=== PATIENT | female | born 1960 | race Caucasian/White ===

== ENCOUNTER 2020-03-11 08:20 | Inpatient (IN) | payer MEDICAID ==
[~2020-03-11] VITALS: Ht 165.1 cm; Wt 57.7 kg
[2020-03-11] VITALS (7 sets, daily range): BP systolic 94–122; BP diastolic 50–83
--- NOTE | 2020-03-11 08:28 | NUR ---
ED Nurse Note: Pt was brought in by ambulance from [facility] d/t shortness of breath. Pt is AOx1, alert whenever name's being called, withdraws to pain, non-verbal. Pt's on FULL CODE. Per EMS pt was satting at 84% on RA, now placed on 15LPM via NRB satting at 95-98%. Placed on bed and gown; hooked to cardiac rehabilitation specialist. Rectal temp taken; 101F, notified ERMD. Safety measures in placed.
--- NOTE | 2020-03-11 08:34 | NUR ---
ED Nurse Note: IV established, blood w/ cultures and urine specimen, covid swabs collected, sent to labs.
[2020-03-11] MEDS ORDERED: LORATADINE10 M2 PO (08:36)
[2020-03-11] MEDS ORDERED: TRIHEXYPHENIDYL5 M2 PO (08:36)
[2020-03-11] MEDS ORDERED: ZINC SULFATE220 M1 ORAL (08:36)
[2020-03-11] MEDS ORDERED: ACETAMINOPHEN325 M1 ORAL (08:36)
[2020-03-11] MEDS ORDERED: LEVOTHYROXINE125 MCG ORAL (08:36)
[2020-03-11] MEDS ORDERED: AZELASTINE137 MCG/0. NS (08:36)
[2020-03-11] MEDS ORDERED: ALBUTEROL SULF8.5 G1 INH (08:36)
[2020-03-11] MEDS ORDERED: PRO-STAT LIQUID30 ML ORAL (08:36)
[2020-03-11] MEDS ORDERED: OLANZAPINE20 MG ORAL (08:36)
[2020-03-11] MEDS ORDERED: NEOSPORIN OINT30 GM TOPIC (08:36)
[2020-03-11] MEDS ORDERED: MULTIVITAMINS1 EAC8 ORAL (08:36)
[2020-03-11] MEDS ORDERED: VITAMIN C500 M1 ORAL (08:36)
[2020-03-11] MEDS ORDERED: Acetaminophen 650 MG SUPP RECTAL ONE (08:45)
--- NOTE | 2020-03-11 08:49 | NUR ---
ED Nurse Note: Skin assessment initiated, noted (1) pressure ulcer on upper sacral area. Tylenol suppository given.
[2020-03-11 08:52] LABS: BASOPHILS % (AUTO) 1.1 % (0.0-2.0); EOSINOPHILS % (AUTO) 0.1 % (0.0-3.0); HEMATOCRIT 41.8 % (37.0-47.0); HEMOGLOBIN 14.5 G/DL (12.0-16.0); LYMPHOCYTES % (AUTO) 14.2 % (20.0-45.0); MEAN CORPUSCULAR VOLUME 89 FL (80-99); MONOCYTES % (AUTO) 5.6 % (1.0-10.0); NEUTROPHILS % (AUTO) 79.1 % (45.0-75.0); PLATELET COUNT 305 K/UL (150-450); RED BLOOD COUNT 4.68 M/UL (4.20-5.40); RED CELL DISTRIBUTION WIDTH 11.5 % (11.6-14.8); WHITE BLOOD COUNT 12.6 K/UL (4.8-10.8)
[2020-03-11 09:15] LABS: ANION GAP 8 mmol/L (5-15); BLOOD UREA NITROGEN 18 mg/dL (7-18); CALCIUM 9.6 MG/DL (8.5-10.1); CARBON DIOXIDE 31 MMOL/L (21-32); CHLORIDE 112 MMOL/L (98-107); CREATININE 0.8 MG/DL (0.55-1.30); POTASSIUM 4.3 MMOL/L (3.5-5.1); SODIUM 151 MMOL/L (136-145)
[2020-03-11 09:15] LABS: APPEARANCE,URINE CLOUDY; BILIRUBIN, URINE NEGATIVE (NEGATIVE); GLUCOSE, URINE (UA) NEGATIVE (NEGATIVE); KETONES,URINE 1+ (NEGATIVE); LEUKOCYTE ESTERASE ,URINE 3+ (NEGATIVE); NITRITE,URINE NEGATIVE (NEGATIVE); PH,URINE 5 (4.5-8.0); PROTEIN,URINE 1+ (NEGATIVE); UROBILINOGEN,URINE NORMAL MG/DL (0.0-1.0)
--- NOTE | 2020-03-11 09:18 | Emergency Room Report ---
History of Present Illness General Chief Complaint: Dyspnea/Respdistress Source: Patient Present Illness HPI 60-year-old female presents the ED for evaluation of shortness of breath. Brought in from half-way facility this morning. Nursing staff noted that patient was hypoxic on room air. History of COPD. Placed on excision. Patient has psychiatric history and nonverbal at baseline. Unable to provide any additional history at this time. No reported chest pain. Febrile in triage. States that patient was recently tested for COVID. No other aggravating relieving factors. Denies any other associated symptoms Allergies: Coded Allergies: PENICILLINS (Verified Allergy, Unknown, 03/11/20) COVID-19 Screening Contact w/high risk pt: No Recent Travel to affected area: No Experienced COVID-19 symptoms?: Yes COVID-19 symptoms experienced: Shortness of Breath COVID-19 Testing performed FRENCH TEACHER: No Patient History Past Medical History: COPD Past Surgical History: none Pertinent Family History: none Social History: Denies: smoking, alcohol use, drug use Now: No Immunizations: UTD Reviewed Nursing Documentation: PMH: Agreed; PSxH: Agreed Nursing Documentation-PMH Hx Cardiac Problems: Yes Hx COPD: Yes Review of Systems All Other Systems: limited Physical Exam Vital Signs Date Time Temp Pulse Resp B/P (MAP) Pulse Ox O2 Delivery O2 Flow Rate FiO2 03/11/20 08:17 99.0 109 18 116/83 (94) 96 Non-Rebreather 12.0 Sp02 EP Interpretation: reviewed, normal General Appearance: GCS 15, non-toxic, other - nonverbal Head: normocephalic, atraumatic Eyes: bilateral eye normal inspection, bilateral eye PERRL ENT: hearing grossly normal, normal pharynx, no angioedema, normal voice Neck: full range of motion, supple/symm/no masses Respiratory: chest non-tender, lungs clear, normal breath sounds, speaking full sentences Cardiovascular #1: regular rate, rhythm, no edema Cardiovascular #2: 2+ carotid (R), 2+ carotid (L), 2+ radial (R), 2+ radial (L) , 2+ dorsalis pedis (R), 2+ dorsalis pedis (L) Gastrointestinal: normal bowel sounds, non tender, soft, non-distended, no guarding, no rebound Rectal: deferred Genitourinary: normal inspection, no CVA tenderness Musculoskeletal: back normal, normal range of motion, gait/station normal, non- tender Neurologic: other - see nursing skin notes Psychiatric: other - nonverbal Reflexes: 3+ bicep (R), 3+ bicep (L), 3+ tricep (R), 3+ tricep (L), 3+ knee (R) , 3+ knee (L) Skin: other - see nursing skin notes Lymphatic: no adenopathy Procedures Critical Care Time Critical Care Time i. I feel this is a highly complex case requiring extensive working including EKG/Rhythm strip, Xray/CT/US, Blood/urine lab work, repeat exams while in ED, and administration of strong opiates/narcotics for pain control, admission to hospital or close patient follow up. Total time: 30 min bedside evaluation and treatment excludes procedures (EKG). Reason for critical care: hypoxia Possible complications: hypotension, hypertension, CA, shock, arrhythmias, metabolic acidosis, end organ damage, respiratory failure. Interventions: labs, EKG, CXR, ABG, evaluation by respiratory therapist. NRB. IVfs. antibiotics. COVID swab Course: Patient presenting with low O2 sat from half-way facility. History of COPD. ABG shows no significant hypercapnia but somewhat hypoxic without acidosis. Placed on 15 L nonrebreather. O2 sats improved. Chest x- ray shows left lower lobe infiltrate. Broad-spectrum antibiotics given. Given IV fluid bolusing. COVID swab sent Consultations: nursing staff, EMS, family Performed by: Dr Castillo Tolerated well condition = serious j. because of unstable vital signs this patient had a condition that could potentially threaten life or limb. I feel this is a critical patient who required my full attention while patient was considered critical. Total Critical Care Time excluding procedures was greater than 35 minutes Medical Decision Making Diagnostic Impression: Primary Impression: COPD (chronic obstructive pulmonary disease) Qualified Codes: J44.9 - Chronic obstructive pulmonary disease, unspecified Additional Impression: Pneumonia Qualified Codes: J18.9 - Pneumonia, unspecified organism ER Course Hospital Course 60 yo F presents with fever, low O2 sat Differential diagnoses include: Pneumonia, CHF exacerbation, pneumothorax, fluid overload Clinical course Patient placed on stretcher. In isolation room. I wore full PPE. On quality assurance monitor body with hypoxia on room air. After initial history and physical, I ordered ABG. I ordered labs, IV fluids, EKG, chest x-ray, blood cultures, UA. Labs -leukocytosis noted, hemoglobin/hematocrit stable, Na 151, lactic 1.9, lactate okay ABG - no acidosis, no hypercapnia CXR - LLL infiltrate EKG - NSR no acute ischemic changes interpreted by me Patient O2 sat proved on nonrebreather. No tachypnea. No respiratory distress. Broad-spectrum antibiotics given. COVID swab sent. Given IV fluids. Case discussed with Dr. Ledesma and he agreed to the patient to his service for further care and support I feel this is a highly complex case requiring extensive working including EKG/ Rhythm strip, Xray/CT/US, Blood/urine lab work, repeat exams while in ED, and administration of strong opiates/narcotics for pain control, admission to hospital or close patient follow up. Diagnosis - pneumonia, COPD Patient admitted to telemetry in serious condition Labs Test 03/11/20 08:21 03/11/20 08:36 03/11/20 08:40 White Blood Count 12.6 K/UL (4.8-10.8) Red Blood Count 4.68 M/UL (4.20-5.40) Hemoglobin 14.5 G/DL (12.0-16.0) Hematocrit 41.8 % (37.0-47.0) Mean Corpuscular Volume 89 FL (80-99) Mean Corpuscular Hemoglobin 30.9 PG (27.0-31.0) Mean Corpuscular Hemoglobin Concent 34.6 G/DL (32.0-36.0) Red Cell Distribution Width 11.5 % (11.6-14.8) Platelet Count 305 K/UL (150-450) Mean Platelet Volume 6.4 FL (6.5-10.1) Neutrophils (%) (Auto) 79.1 % (45.0-75.0) Lymphocytes (%) (Auto) 14.2 % (20.0-45.0) Monocytes (%) (Auto) 5.6 % (1.0-10.0) Eosinophils (%) (Auto) 0.1 % (0.0-3.0) Basophils (%) (Auto) 1.1 % (0.0-2.0) Sodium Level 151 MMOL/L (136-145) Potassium Level 4.3 MMOL/L (3.5-5.1) Chloride Level 112 MMOL/L (98-107) Carbon Dioxide Level 31 MMOL/L (21-32) Anion Gap 8 mmol/L (5-15) Blood Urea Nitrogen 18 mg/dL (7-18) Creatinine 0.8 MG/DL (0.55-1.30) Estimat Glomerular Filtration Rate > 60 mL/min (>60) Glucose Level 123 MG/DL (74-106) Lactic Acid Level 1.90 mmol/L (0.4-2.0) Calcium Level 9.6 MG/DL (8.5-10.1) Total Bilirubin 0.3 MG/DL (0.2-1.0) Aspartate Amino Transf (AST/SGOT) 46 U/L (15-37) Alanine Aminotransferase (ALT/SGPT) 83 U/L (12-78) Alkaline Phosphatase 83 U/L (46-116) Pro-B-Type Natriuretic Peptide 348 pg/mL (0-125) Total Protein 7.1 G/DL (6.4-8.2) Albumin 2.4 G/DL (3.4-5.0) Globulin 4.7 g/dL Albumin/Globulin Ratio 0.5 (1.0-2.7) Arterial Blood pH 7.442 (7.350-7.450) Arterial Blood Partial Pressure CO2 43.5 mmHg (35.0-45.0) Arterial Blood Partial Pressure O2 57.1 mmHg (75.0-100.0) Arterial Blood HCO3 29.0 mmol/L (22.0-26.0) Arterial Blood Oxygen Saturation 90.2 % (95-100) Arterial Blood Base Excess 4.3 (-2-2) Keith Test Positive Urine Color Yellow Urine Appearance Cloudy Urine pH 5 (4.5-8.0) Urine Specific [place] 1.020 (1.005-1.035) Urine Protein 1+ (NEGATIVE) Urine Glucose (UA) Negative (NEGATIVE) Urine Ketones 1+ (NEGATIVE) Urine Blood 3+ (NEGATIVE) Urine Nitrite Negative (NEGATIVE) Urine Bilirubin Negative (NEGATIVE) Urine Urobilinogen Normal MG/DL (0.0-1.0) Urine Leukocyte Esterase 3+ (NEGATIVE) Urine RBC 5-10 /HPF (0 - 2) Urine WBC 5-10 /HPF (0 - 2) Urine Squamous Epithelial Cells Occasional /LPF Urine Amorphous Sediment Many /LPF (NONE) Urine Bacteria Few /HPF (NONE) EKG Diagnostic Results Rate: normal Rhythm: NSR ST Segments: no acute changes ASA given to the pt in ED: No Rhythm Strip Diag. Results EP Interpretation: yes Rhythm: NSR, no PVC's, no ectopy Chest X-Ray Diagnostic Results Chest X-Ray Diagnostic Results : Chest X-Ray Ordered: Yes # of Views/Limited/Complete: 1 View Indication: Shortness of Breath EP Interpretation: Yes Interpretation: no effusion, no pneumothorax, other - LLL infiltrate Impression: Other - pneumonia Electronically Signed by: Electronically signed by Ulises Castillo MD Last Vital Signs Date Time Temp Pulse Resp B/P (MAP) Pulse Ox O2 Delivery O2 Flow Rate FiO2 03/11/20 08:31 99.0 101 24 116/83 95 Non-Rebreather 12.0 Status: improved Disposition: ADMITTED INPATIENT Condition: Serious Referrals: NON PHYSICIAN (PCP) Ulises Castillo MD Mar 11, 2020 09:18
[2020-03-11 09:24] LABS: COLOR,URINE YELLOW
[2020-03-11 09:28] LABS: ALANINE AMINOTRANSFERASE 83 U/L (12-78); ALBUMIN 2.4 G/DL (3.4-5.0); ALBUMIN/GLOBULIN RATIO 0.5 (1.0-2.7); ALKALINE PHOSPHATASE 83 U/L (46-116); ASPARTATE AMINO TRANSFERASE 46 U/L (15-37); BILIRUBIN,TOTAL 0.3 MG/DL (0.2-1.0)
--- NOTE | 2020-03-11 09:35 | Diagnostic Imaging Report ---
EXAM: XR Chest, 1 View CLINICAL HISTORY: SOB TECHNIQUE: Frontal view of the chest. COMPARISON: No relevant prior studies available. FINDINGS: Lungs: There is mild left lower lobe infiltrate consistent with pneumonia. Pleural space: Unremarkable. No pneumothorax. Heart: The heart size is at the upper limits of normal. Mediastinum: Unremarkable. Bones/joints: Unremarkable. IMPRESSION: There is mild left lower lobe infiltrate consistent with pneumonia.
[2020-03-11] MEDS ORDERED: Cefepime HCl 1 GM in D5W 55 ML IVPB ONE (09:45)
[2020-03-11] MEDS ORDERED: Azithromycin 500 MG in NS 275 ML IV ONE (09:45)
--- NOTE | 2020-03-11 11:00 | NUR ---
ED Nurse Note: latest temp: 98F oral.
--- NOTE | 2020-03-11 17:05 | NUR ---
ED Nurse Note: report given to SHARATH Saucedo in telemetry unit for continuity of care.
--- NOTE | 2020-03-11 17:30 | NUR ---
TRANSFER TO TELEMETRY: Patient transferred to Telemetry Unit as ordered, per Dr. Ledesma. Report given to SHARATH Saucedo. Belongings and medications given to receiving nurse. Family and or S/O informed of transfer.
--- NOTE | 2020-03-11 18:16 | NUR ---
NURSE NOTES: Received patient from SHARATH Wei from the Emergency Department. Patient is aphasic, oxygen was at 12 liters with non-Rebreather saturation at 99 percent, lowered to 5 liters and saturation at 95%.
[2020-03-11] MEDS: Albuterol 90mcg Inhaler 8gm INH SCH (19:00)
--- NOTE | 2020-03-11 19:17 | NUR ---
HAND-OFF: Report given to Ashley Michaels RN. Patient in supine position, on 5 liters non-rebreather saturation at 95%, bed in lowest position, call light within reach, non-verbal. Endorsing remainder of admission, physicial assessment, modification of tylenole Rx, checking on Azlastine and trihexyphendol ([facility] doesn't carry), order for oxygen and possibly respiratory therapy.
--- NOTE | 2020-03-11 19:28 | NUR ---
NURSE NOTES: Received report from SHARATH Saucedo. Patient is asleep lying semi-correa's; resting comfortably. Arousable to shaking. No signs of acute distress noted; denies pain at this time. On 5L non-rebreather mask saturating at 98%. AOx1; unable to make needs known, however patient does have garbled speech. Checked IV site; patent and flushed. No erythema, bleeding, or infiltration noted. Skin assessment performed; stage III pressure ulcer noted on sacrum. Will take photo. Bed at lowest position, brakes on, siderails up x3. Call light within reach. Will continue to monitor.
[2020-03-11] MEDS ORDERED: Vancomycin 1.25gm/NS Premix IVPB ONE (20:00)
[2020-03-11] MEDS: Heparin 5000 units/ml inj SUBQ SCH (21:31)
[2020-03-12] VITALS (7 sets, daily range): BP systolic 119–137; BP diastolic 70–83
[2020-03-12] MEDS: Albuterol 90mcg Inhaler 8gm INH SCH ×7 (00:38→22:40)
[2020-03-12] MEDS: Piperacillin/Tazobactam 3.375 GM in NS 110 ML IVPB SCH ×4 (00:38→22:55)
--- NOTE | 2020-03-12 07:20 | NUR ---
NURSE NOTES:Handoff received from SHARATH Ramirez. Patient received sleeping in bed, no acute signs of distress noted. Patient is on isolation for PUI covid. Patient is on non rebreather at 8 liters. IV site is clean dry and intact, saline locked. bed in the low and locked position with call light within reach, bed alarm on, will continue to monitor patient.
--- NOTE | 2020-03-12 07:40 | NUR ---
NURSE NOTES:handoff received from SHARATH Alaniz. Patient observed sleeping in bed. RN informed me that GEOSCIENTIST was called as patient desatted and had high fever, fever now in normal range. Patient has Lainez cath in place, patient and draining, bed in the low and locked position with bed alarm on, call light within reach. Patient is on non-rebreather mask at 8 liters. Patient also receiving heparin drip 14units/Kg/Hr running at 41.277 MLS/HR. will continue to monitor patient. Addendum: 03/12/20 at 0842 by Doug Guy RN CHARTED ON WRONG PATIENT PLEASE IGNORE. Addendum: 03/12/20 at 0843 by Doug Guy RN IGNORE ADDENDUM BEFORE. NURSE NOTED ABOVE IS ENTERED ON THE CORRECT PATIENT. Addendum: 03/12/20 at 0845 by Doug Guy RN CHARTED ON WRONG PATIENT. PLEASE IGNORE.
--- NOTE | 2020-03-12 07:46 | NUR ---
HAND-OFF: Report given to SHARATH Camacho. Patient is asleep lying semi-correa's; resting comfortably. On 8L non-rebreather mask. In stable condition.
--- NOTE | 2020-03-12 09:13 | NUR ---
*-* INSURANCE *-* ALL AVAILABLE CLINICALS AND REVIEWS HAVE BEEN FAXED TO: [employer] F: [phone] Addendum: 03/12/20 at 1115 by JULIAN DINH CM ref# [id number]
[2020-03-12] MEDS: Ascorbic Acid 500mg tab ORAL SCH (09:33)
[2020-03-12] MEDS: OLANZapine 10mg tab ORAL SCH (09:33)
[2020-03-12] MEDS: Trihexyphenidyl 2mg tab ORAL SCH ×2 (09:33→18:00)
[2020-03-12] MEDS: Heparin 5000 units/ml inj SUBQ SCH ×2 (09:33→21:21)
[2020-03-12] MEDS: Levothyroxine 125mcg tab ORAL SCH (09:33)
[2020-03-12] MEDS: Zinc Sulfate 220mg ORAL SCH (09:33)
[2020-03-12] MEDS: Multivitamin w/Minerals tab ORAL SCH (09:33)
--- NOTE | 2020-03-12 11:27 | NUR ---
SWALLOW/SPEECH THERAPY NOTE: REFERRED FOR SWALLOW EVALUATION BY DR. ROBLEDO (ALSO PRIMARY MD). CHART REVIEWED, SEE FULL EVAL IN CARE ACTIVITY SECTION. THIS 60 Y.O.M. WAS ADMITTED WITH ACUTE ISSUES - FEVER, HYPOXIC WITH LOW 02 SATS ON NON-REBREATHER, RESP RATE 18 BPM INITIALLY PER MEDICAL RECORD. PER RN, THE PATIENT HAD A RAPID RESPOSE THIS MORNING (DESAT TO 90S AND RAPID RESP RATE). H/O COPD, CARDIAC DZ, HYPOTHYROIDISM, HTN, ALLERGIC RHINITIS, SCHIZOPHRENIA (ON OLANZAPINE AT SNF), BASELINE NONVERBAL. PER POLST FULL TX BUT NO INFORMATION REGARDING TUBE FEEDING PREFERENCES. AT SNF ON A REGULAR DIET TEXTURE AND THIN LIQUIDS WITH PROSTAT SF DRINK WITH MEALS. NOW ON A REGULAR TEXTURE DIET AND THIN LIQUIDS BUT DID NOT TAKE ANY PO. PER RN, LAURIE, THE PT UNABLE TO TAKE LARGE PILLS BUT APPEARED TO TOLERATE CRUSHED MEDS WITH APPLESAUCE W/O OVERT ASPIRATION. PATIENT SEEN WITH RTFUNMI. PER RT RESP RATE 22 BPM AND NOT ABLE TO INITIAL IMPRESSIONS: HIGH RISK FOR A SIGNIFICANT OROPHARYNGEAL DYSPHAGIA AND SILENT ASPIRATION (H/O COPD) AND POOR/INADEQUATE INTAKE PARTICULARLY WHEN USING NON-REBREATHER (UNABLE TO SWITCH TO NASAL CANNULA PER RT). PER RN, NO APPARENT S/S OF ASPIRATION WITH CRUSHED MEDS AND APPLESAUCE. WILL HOLD ON PO TRIALS SINCE THE PATIENT IS STILL ON THE NON-REBREATHER. PATIENT IS AWAKE BUT VERY TIRED AND REFUSED PO TRIALS. SHE WAS ABLE TO MOVE HER TONGUE LEFT AND RIGHT BUT DID NOT MOVE IT FORWARD PAST HER LIPS. SHE HAS POOR AND MISSING DENTITION AND HER SPONTANEOUS COUGH WAS VERY WEAK. PER RN, NO NEED FOR ORAL SUCTION. RECOMMENDATIONS: 1. NPO AND INITIATE NGT (12 INDIAN) NONORAL FEEDINGS 2. AGGRESSIVE ORAL CARE AND ASPIRATION PRECAUTIONS WITH WHEN TUBE FEEDINGS RUNNING 3. MODIFIED BARIUM SWALLOW STUDY WHEN READY AND WHEN NO LONGER PUI (PENDING TEST RESULTS PER RN) AND CONTINUE WITH DYSPHAGIA MANAGEMENT AND TX 4. EDUCATED/TRAINED RN IN POSTED ORAL CARE AND ASP PRECAUTIONS WITH NGT 5. LEFT MESSAGE WITH RD REGARDING NEED FOR TF RECOMMENDATIONS Addendum: 03/12/20 at [address] ROBLEDO INFORMED AND HE AGREED WITH RECOMMENDATIONS THE PATIENT NODDED HER HEAD IN AGREEMENT FOR NONORAL FEEDINGS.
--- NOTE | 2020-03-12 11:41 | NUR ---
NURSE NOTES:contacted Dr Ledesma as patient has stage 3 sacral wound, requested physician consult.
--- NOTE | 2020-03-12 12:18 | NUR ---
RD ASSESSMENT & RECOMMENDATIONS SEE CARE ACTIVITY FOR COMPLETE ASSESSMENT DAILY ESTIMATED NEEDS: Needs based on Wound/ 56kg 25-35 kcals/kg 7154-1157 total kcals 1.25-1.8 g protein/kg 70-100 g total protein 25-30 mL/kg 7944-5335 total fluid mLs NUTRITION DIAGNOSIS: * Swallowing difficulty R/T dysphagia as evidendced by BULK PICKER w/ rec for NPO, nonoral feeding at this time. * Increased kcal/prot/micronutrients needs R/T wound healing as evidenced by pt admitted w/ sacral wound, pending eval. CURRENT DIET:NPO ENTERAL NUTRITION RECOMMENDATIONS: Jevity 1.2 @ 60ml/hr x 24 hrs to provide 1440ml, 1728kcal, 86g prot, 1160ml free water * W/ GI access, initiate Jevity 1.2 @ 20ml/hr x 6hrs * Advance 10ml q 4-6 hrs as tolerated to goal * HOB Over 30 degrees * Without IVF, water flush of 120ml q 6hrs ADDITIONAL RECOMMENDATIONS: * Per SNF: HT=66" RL=145lsb (03/07/20) * Monitor lytes closely w/ TF, replete as needed * Wound healing: continue Vit C add Kasi 1pkt BID via NGT * Monitor BGs w/ TF, need for coverage Addendum: 03/12/20 at [address] DISREGARD ABOVE NOTE
--- NOTE | 2020-03-12 12:21 | NUR ---
RD ASSESSMENT & RECOMMENDATIONS SEE CARE ACTIVITY FOR COMPLETE ASSESSMENT DAILY ESTIMATED NEEDS: Needs based on Wound/ 56kg 25-35 kcals/kg 8523-2007 total kcals 1.25-1.8 g protein/kg 70-100 g total protein 25-30 mL/kg 1268-4317 total fluid mLs NUTRITION DIAGNOSIS: * Swallowing difficulty R/T dysphagia as evidendced by SALSA DANCE INSTRUCTOR w/ rec for NPO, nonoral feeding at this time. * Increased kcal/prot/micronutrients needs R/T wound healing as evidenced by pt admitted w/ sacral wound, pending eval. CURRENT DIET:NPO ENTERAL NUTRITION RECOMMENDATIONS: Jevity 1.2 @ 65ml/hr x 22 hrs (HOLD 1 HR BEFORE AND AFTER SYNTHROID) to provide 1430ml, 1716kcal, 79g prot, 1154ml free water * W/ GI access, initiate Jevity 1.2 @ 25ml/hr x 6hrs * Advance 10ml q 4-6 hrs as tolerated to goal * HOLD 1 hr before and after Synthroid * HOB Over 30 degrees * Without IVF, water flush of 120ml q 6hrs ADDITIONAL RECOMMENDATIONS: * Per SNF: HT=66" YE=088xfw (03/07/20) * Monitor lytes closely w/ TF, replete as needed * Wound healing: continue Vit C add Kasi 1pkt BID via NGT * Monitor BGs w/ TF, need for coverage
--- NOTE | 2020-03-12 13:58 | Consultation ---
History of Present Illness General Date patient seen: Mar 12, 2020 Reason for Hospitalization: Dyspnea/Respdistress Present Illness HPI 60-year-old male medical communities presented with respiratory insufficiency admitted further care management noted to have malnutrition abnormal labs decubitus ulcer surgery called to evaluate assist with care. Patient seen patient evaluated chart reviewed. Allergies: Coded Allergies: PENICILLINS (Verified Allergy, Unknown, 03/11/20) COVID-19 Screening Contact w/high risk pt: No Recent Travel to affected area: No Experienced COVID-19 symptoms?: Yes COVID-19 symptoms experienced: Shortness of Breath Medication History Scheduled Albuterol Sulfate* (Albuterol Sulfate Hfa*), 2 PUFF INH Q4H, (Reported) Amino Acids/Protein Hydrolys (Pro-Stat Liquid), 30 ML ORAL TWICE A DAY, ( Reported) Ascorbic Acid* (Vitamin C*), 500 MG ORAL DAILY, (Reported) Azelastine Hcl (Azelastine Hcl), 137 MCG NS TWICE A DAY, (Reported) Levothyroxine Sodium* (Levothyroxine Sodium*), 125 MCG ORAL DAILY, (Reported) Loratadine (Loratadine), 10 MG PO DAILY, (Reported) Multivitamin With Minerals (Multivitamins With Minerals*), 1 TAB ORAL DAILY, ( Reported) Neomycin/Polymyxin/Bacitracin* (Triple Antibiotic Ointment*), 30 GM TOPIC DAILY, (Reported) Olanzapine (Olanzapine), 20 MG ORAL DAILY, (Reported) Trihexyphenidyl Hcl (Trihexyphenidyl Hcl), 5 MG PO TWICE A DAY, (Reported) Zinc Sulfate (Zinc Sulfate*), 220 MG ORAL DAILY, (Reported) Scheduled PRN Acetaminophen* (Acetaminophen 325MG Tablet*), 650 MG ORAL Q4H PRN for For Pain, (Reported) Patient History Limited by: medical condition History Provided By: Medical Record, PMD Healthcare decision maker Resuscitation status Advanced Directive on File Past Medical/Surgical History Past Medical/Surgical History: (1) Pneumonia (2) COPD (chronic obstructive pulmonary disease) (3) Fever (4) Decubitus skin ulcer (5) Malnutrition Review of Systems Review of Symptoms General ROS: no weight loss or fever Psychological ROS: no depression or mood changes, no memory loss Ophthalmic ROS: no visual changes or eye irritation ENT ROS: no nasal congestion, hearing loss, dizziness Allergy and Immunology ROS: no allergic symptoms or urticaria Hematological and Lymphatic ROS: no swollen glands, unusual bleeding or bruising Endocrine ROS: no polyuria, polydipsia, weight changes, temperature intolerance Respiratory ROS: no cough, shortness of breath, or wheezing Cardiovascular ROS: no chest pain or dyspnea on exertion Gastrointestinal ROS: denies abdominal pain, bright red blood in stool. Musculoskeletal ROS: no myalgias or arthralgias Neurological ROS: no TIA or stroke symptoms Dermatological ROS: no new or changing skin lesions, rashes or pruritis Physical Exam Physical Exam General appearance: no distress, appears stated age Head: Normocephalic, without obvious abnormality, atraumatic Eyes: conjunctivae/corneas clear. PERRL, EOM's intact. Fundi benign Throat: Lips, mucosa, and tongue normal. Teeth and gums normal Neck: supple, symmetrical, trachea midline, no adenopathy, thyroid: not enlarged, symmetric, no tenderness/mass/nodules, no carotid bruit and no JVD Lungs: clear to auscultation bilaterally Heart: regular rate and rhythm, S1, S2 normal, no murmur, click, rub or gallop Abdomen: soft, non-tender. Bowel sounds normal. No masses, no organomegaly Extremities: extremities normal, atraumatic, no cyanosis or edema Pulses: 2+ and symmetric Skin: Skin color, texture, turgor normal. No rashes or lesions Neurologic: Grossly normal Last 24 Hour Vital Signs Date Time Temp Pulse Resp B/P (MAP) Pulse Ox O2 Delivery O2 Flow Rate FiO2 03/12/20 09:00 Non-Rebreather 8.0 03/12/20 08:00 99.7 107 22 119/81 (94) 95 03/12/20 08:00 100 03/12/20 04:00 97.8 99 22 128/83 (98) 93 03/12/20 04:00 100 03/12/20 00:00 97.7 93 21 128/72 (90) 98 03/12/20 00:00 100 03/11/20 21:00 Non-Rebreather 5.0 03/11/20 20:00 100 03/11/20 20:00 97.7 97 20 106/67 (80) 97 03/11/20 18:18 97.7 101 22 122/80 (94) 95 03/11/20 17:51 Non-Rebreather 5.0 03/11/20 17:30 98.0 93 22 104/59 98 Non-Rebreather 15.0 03/11/20 16:47 98.0 93 22 104/50 98 Non-Rebreather 12.0 03/11/20 14:42 98.0 95 24 100/57 99 Non-Rebreather 12.0 Intake and Output 03/11/20 03/12/20 19:00 07:00 Intake Total 1055 ml 407.0 ml Output Total 0 ml Balance 1055 ml 407.0 ml Intake IV Total 1055 ml 407.0 ml Output Urine Total 0 ml # Voids 1 2 Height (Feet): 5 Height (Inches): 5.00 Weight (Pounds): 120 Medications Current Medications Medications (Trade) Dose Ordered Sig/Ranjeet Route PRN Reason Start Time Stop Time Status Last Admin Dose Admin Acetaminophen (Tylenol) 650 mg Q4H PRN ORAL Mild Pain (1-3)/Fever > 100.5 03/11/20 19:30 04/10/20 19:29 Albuterol Sulfate (Proventil MDI) 2 puff Q4HRT INH 03/11/20 19:00 06/09/20 18:59 03/12/20 11:15 Ascorbic Acid (Vitamin C) 500 mg DAILY ORAL 03/12/20 09:00 04/11/20 08:59 03/12/20 09:33 Heparin Sodium (Porcine) (Heparin 5000 units/ml) 5,000 units EVERY 12 HOURS SUBQ 03/11/20 21:00 04/25/20 20:59 03/12/20 09:33 Levothyroxine Sodium (Synthroid) 125 mcg DAILY ORAL 03/12/20 09:00 04/11/20 08:59 03/12/20 09:33 Loratadine (Claritin 10mg) 10 mg DAILY ORAL 03/12/20 09:00 04/11/20 08:59 03/12/20 09:33 Multivitamins Therapeutic (Therapeutic Multivitamin) 1 ea DAILY ORAL 03/12/20 09:00 04/11/20 08:59 03/12/20 09:33 Olanzapine (ZyPREXA) 20 mg DAILY ORAL 03/12/20 09:00 04/26/20 08:59 03/12/20 09:33 Piperacillin Sod/ Tazobactam Sod 3.375 gm/Sodium Chloride 110 ml @ 27.5 mls/hr EVERY 8 HOURS IVPB 03/11/20 22:00 03/16/20 21:59 03/12/20 06:12 Sodium Chloride 1,000 ml @ 75 mls/hr [id number] IV 03/12/20 07:30 04/11/20 07:29 03/12/20 09:33 Trihexyphenidyl HCl (Artane) 5 mg TWICE A DAY ORAL 03/12/20 09:00 04/11/20 08:59 03/12/20 09:33 Vancomycin HCl (Vanco pharmacy to dose) 1 ea DAILY PRN MISC Per rx protocol 03/11/20 18:45 04/10/20 18:44 Vancomycin/Sodium Chloride 275 ml @ 137.5 mls/ hr Q24H IVPB 03/12/20 20:00 03/17/20 19:59 Zinc Sulfate (Zinc Sulfate) 220 mg DAILY ORAL 03/12/20 09:00 06/10/20 08:59 03/12/20 09:33 Assessment/Plan Problem List: (1) Malnutrition Assessment & Plan: DAILY ESTIMATED NEEDS: Needs based on Wound/ 56kg 25-35 kcals/kg 1856-6516 total kcals 1.25-1.8 g protein/kg 70-100 g total protein 25-30 mL/kg 1605-1824 total fluid mLs NUTRITION DIAGNOSIS: * Swallowing difficulty R/T dysphagia as evidendced by 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 * Increased kcal/prot/micronutrients needs R/T wound healing as evidenced by pt admitted w/ sacral wound, pending eval. CURRENT DIET:NPO ENTERAL NUTRITION RECOMMENDATIONS: Jevity 1.2 @ 65ml/hr x 22 hrs (HOLD 1 HR BEFORE AND AFTER SYNTHROID) to provide 1430ml, 1716kcal, 79g prot, 1154ml free water * W/ GI access, initiate Jevity 1.2 @ 25ml/hr x 6hrs * Advance 10ml q 4-6 hrs as tolerated to goal * HOLD 1 hr before and after Synthroid * HOB Over 30 degrees * Without IVF, water flush of 120ml q 6hrs ADDITIONAL RECOMMENDATIONS: * Per SNF: HT=66" XH=405fmj (03/07/20) * Monitor lytes closely w/ TF, replete as needed * Wound healing: continue Vit C add Kasi 1pkt BID via NGT * Monitor BGs w/ TF, need for coverage THIS 60 Y.O.M. WAS ADMITTED WITH ACUTE ISSUES - FEVER, HYPOXIC WITH LOW 02 SATS ON NON-REBREATHER, RESP RATE 18 BPM INITIALLY PER MEDICAL RECORD. PER RN, THE PATIENT HAD A RAPID RESPOSE THIS MORNING (DESAT TO 90S AND RAPID RESP RATE). H/O COPD, CARDIAC DZ, HYPOTHYROIDISM, HTN, ALLERGIC RHINITIS, SCHIZOPHRENIA (ON OLANZAPINE AT SNF), BASELINE NONVERBAL. PER POLST FULL TX BUT NO INFORMATION REGARDING TUBE FEEDING PREFERENCES. AT SNF ON A REGULAR DIET TEXTURE AND THIN LIQUIDS WITH PROSTAT SF DRINK WITH MEALS. NOW ON A REGULAR TEXTURE DIET AND THIN LIQUIDS BUT DID NOT TAKE ANY PO. PER RNLAURIE, THE PT UNABLE TO TAKE LARGE PILLS BUT APPEARED TO TOLERATE CRUSHED MEDS WITH APPLESAUCE W/O OVERT ASPIRATION. PATIENT SEEN WITH RTFUNMI. PER RT RESP RATE 22 BPM AND NOT ABLE TO INITIAL IMPRESSIONS: HIGH RISK FOR A SIGNIFICANT OROPHARYNGEAL DYSPHAGIA AND SILENT ASPIRATION (H/O COPD) AND POOR/INADEQUATE INTAKE PARTICULARLY WHEN USING NON-REBREATHER (UNABLE TO SWITCH TO NASAL CANNULA PER RT). PER RN, NO APPARENT S/S OF ASPIRATION WITH CRUSHED MEDS AND APPLESAUCE. WILL HOLD ON PO TRIALS SINCE THE PATIENT IS STILL ON THE NON-REBREATHER. PATIENT IS AWAKE BUT VERY TIRED AND REFUSED PO TRIALS. SHE WAS ABLE TO MOVE HER TONGUE LEFT AND RIGHT BUT DID NOT MOVE IT FORWARD PAST HER LIPS. SHE HAS POOR AND MISSING DENTITION AND HER SPONTANEOUS COUGH WAS VERY WEAK. PER RN, NO NEED FOR ORAL SUCTION. RECOMMENDATIONS: 1. NPO AND INITIATE NGT (12 LITHUANIAN) NONORAL FEEDINGS 2. AGGRESSIVE ORAL CARE AND ASPIRATION PRECAUTIONS WITH WHEN TUBE FEEDINGS RUNNING 3. MODIFIED BARIUM SWALLOW STUDY WHEN READY AND WHEN NO LONGER PUI (PENDING TEST RESULTS PER RN) AND CONTINUE WITH DYSPHAGIA MANAGEMENT AND TX ICD Codes: E46 - Unspecified protein-calorie malnutrition SNOMED: 70972223 (2) Decubitus skin ulcer Assessment & Plan: Pt presented on admission with multiple pressure injuries. Full thickness Pressure injury Sacrococcygeal area. (L)4cm x (W)2.5cm. Base of wound is fatou with scattered slough ,which was easily removed with gentle friction. Wound is now fatou with 25% soft necrosis at distal base of wound. Small amt sanguineous exudate noted.No odor noted. Periwound erythematous and denuded. Two additional Pressure Injuries noted to R gluteal cheek.(Proximal) Base of wound is purple and indurated(L)3cm x (W)1.5cm. Surrounding erythematous and denuded skin (Distal) R gluteus(L)1.4cm x (W)0.6cm. Base of wound is purple, indurated with surrounding erythematous and denuded skin. DTPI L Gluteal cheek (L)1.5cm x (W)1.3cm. Base of wound is indurated, purple with surrounding non-blanching erythema. Additional scattered areas that are maroon in colour noted to L gluteal cheek. Lateral L Heel boggy with non-blanching erythema with delineated margins. (L) 4cm x (W)4.5cm. Lateral R Heel Boggy with non-Blanchable erythema with delineated margins(L) 2.5cm x (W)2.5cm. Tx.Plan: Cleanse Sacrococcygeal area with saline. Apply TheraHoney , Apply Moisture Barrier Paste to Sacrum, R and L Buttocks. Cover entire Area with Optifoam drsgs. Change every 3 days and prn. Apply Moisture Barrier Paste to R and L Buttocks . Cover with Optifoam drsgs. Changee very 3 days and prn. Apply Cavilon Skin Barrier to R and L Trochanteric areas. Cover with Optifoam drsg. Change every 7 days and prn. Apply Cavilon Skin Barrier to R and L Heels. Cover each heel with Optifoam drsg. Change every 7 days and prn. Reposition at least every 2hours or as tolerated. Off-load heels with Pillow. APM/ERIK Mattress. ICD Codes: L89.90 - Pressure ulcer of unspecified site, unspecified stage SNOMED: 952666260 (3) Pneumonia Assessment & Plan: Lungs: There is mild left lower lobe infiltrate consistent with pneumonia. Pleural space: Unremarkable. No pneumothorax. Heart: The heart size is at the upper limits of normal. Mediastinum: Unremarkable. Bones/joints: Unremarkable. IMPRESSION: There is mild left lower lobe infiltrate consistent with pneumonia. ICD Codes: J18.9 - Pneumonia, unspecified organism SNOMED: 031938946 Qualifiers: Qualified Codes: J18.9 - Pneumonia, unspecified organism (4) COPD (chronic obstructive pulmonary disease) ICD Codes: J44.9 - Chronic obstructive pulmonary disease, unspecified SNOMED: 80808421 Qualifiers: Qualified Codes: J44.9 - Chronic obstructive pulmonary disease, unspecified (5) Fever ICD Codes: R50.9 - Fever, unspecified SNOMED: 806339992 Eddie Perez Mar 12, 2020 13:58
--- NOTE | 2020-03-12 15:16 | NUR ---
CASE MANAGEMENT:REVIEW 60 YR OLD FEMALE BIBA FROM [facility]. SATURATION 88% ON RA SI: COPD. PNEUMONIA 98.9 109 18 94/59 96% ON NON REBREATHER WBC+12.6 IS: 1L NS BOLUS CXR BLOOD CX COVID 19 SWAB : TELEMETRY STATUS
--- NOTE | 2020-03-12 15:49 | NUR ---
NURSE NOTES:Entered patient room and noticed patient had a change in level of consciousness. Patient breathing was labored and patient would not respond to commands or physical stimulation. Called DEBURRING TECHNICIAN for patient. DEBURRING TECHNICIAN assessed patient, vitals were stable. Patient was on non-rebreather at 8 liters. DEBURRING TECHNICIAN placed patient on NC @ 2 liters and patient started to become more alert. Patient stable and DEBURRING TECHNICIAN left.
--- NOTE | 2020-03-12 15:49 | NUR ---
NURSE NOTES:WOUND CARE NOTES:Pt presented on admission with multiple pressure injuries. Full thickness Pressure injury Sacrococcygeal area. (L)4cm x (W)2.5cm. Base of wound is fatou with scattered slough ,which was easily removed with gentle friction. Wound is now fatou with 25% soft necrosis at distal base of wound. Small amt sanguineous exudate noted.No odor noted. Periwound erythematous and denuded. Two additional Pressure Injuries noted to R gluteal cheek.(Proximal) Base of wound is purple and indurated(L)3cm x (W)1.5cm. Surrounding erythematous and denuded skin (Distal) R gluteus(L)1.4cm x (W)0.6cm. Base of wound is purple, indurated with surrounding erythematous and denuded skin. DTPI L Gluteal cheek (L)1.5cm x (W)1.3cm. Base of wound is indurated, purple with surrounding non-blanching erythema. Additional scattered areas that are maroon in colour noted to L gluteal cheek. Lateral L Heel boggy with non-blanching erythema with delineated margins. (L)4cm x (W)4.5cm. Lateral R Heel Boggy with non-Blanchable erythema with delineated margins(L)2.5cm x (W)2.5cm. Tx.Plan: Cleanse Sacrococcygeal area with saline. Apply TheraHoney , Apply Moisture Barrier Paste to Sacrum, R and L Buttocks. Cover entire Area with Optifoam drsgs. Change every 3 days and prn. Apply Moisture Barrier Paste to R and L Buttocks . Cover with Optifoam drsgs. Changee very 3 days and prn. Apply Cavilon Skin Barrier to R and L Trochanteric areas. Cover with Optifoam drsg. Change every 7 days and prn. Apply Cavilon Skin Barrier to R and L Heels. Cover each heel with Optifoam drsg. Change every 7 days and prn. Reposition at least every 2hours or as tolerated. Off-load heels with Pillow. APM/ERIK Mattress.
[2020-03-12] MEDS ORDERED: Tubing IV Secondary IV ONE (16:45)
--- NOTE | 2020-03-12 17:30 | History and Physical Report ---
DATE OF ADMISSION: 03/11/2020 CHIEF COMPLAINT: Shortness of breath and fever. HISTORY OF PRESENT ILLNESS: Ms. Elena is a 60-year-old female. She has a history of COPD, hypothyroidism, schizophrenia, presented from a long term facility with complaints of shortness of breath. The patient is a poor historian. According to the records from the long term facility, she had cough, congestion and fever. On evaluation in the emergency room, she was afebrile, but was hypoxic. She was placed on 15 liters non-rebreather. She had a white count of 12,000. Chest x-ray showed a left lower lobe infiltrate. She has been swabbed for COVID, results of which are currently pending. Of note, she did have a COVID swab done on 02/21 that was negative. PAST MEDICAL HISTORY: As above. PAST SURGICAL HISTORY: Unknown. CURRENT MEDICATIONS: Reconciled and reviewed. ALLERGIES: Include penicillin. FAMILY HISTORY: Noncontributory. SOCIAL HISTORY: There is no known history of tobacco, ethanol, or drugs. REVIEW OF SYSTEMS: Difficult to obtain as the patient is confused. PHYSICAL EXAMINATION: VITAL SIGNS: Temperature 97, pulse 93, respirations 21, blood pressure 120/72. GENERAL: The patient is chronically ill-appearing thin female, in no apparent distress. HEART: Regular rate and rhythm. LUNGS: Significant for scattered rhonchi. ABDOMEN: Soft, nontender and nondistended. EXTREMITIES: Without clubbing, cyanosis, or edema. LABORATORY DATA: Reviewed. ASSESSMENT: This is a 60-year-old female with minimal complaints of shortness of breath and fevers secondary to pneumonia. 1. Pneumonia. 2. Coronavirus. 3. History of hypothyroidism. 4. Heart disease. 5. COPD. PLAN: IV steroids, IV antibiotics and respiratory treatments. Follow up repeat COVID. Wean oxygen. Check a swallow evaluation. Isaak Ledesma M.D. DR: Bel JOB#: [id number] CC:
--- NOTE | 2020-03-12 19:12 | NUR ---
RESPIRATORY NOTE: Received pt on 100% NRB. Pt placed on BiPAP per MD order. Pt now on BiPAP 16/4, back up rate 14, FiO2 titrated to 50%. Pt placed on a Facial mask, skin intact, no redness/breakdowns noted. Foam tape applied on pt's nosebridge/cheeks/chin to prevent mask irritations. Pt is a little lethargic, but arousable, alert & able to follow commands. B/S torsten. diminished, nonproductive cough. BiPAP plugged into red outlet, alarms on & audible. Pt in no apparent distress at this time. Will continue plan of care.
--- NOTE | 2020-03-12 19:15 | NUR ---
NURSE NOTES: pt report received from Doug EARLY from Tele. pt is alert and oriented times 2, no acute abnormalities neuro heath. pt is on BIPAP, satting at 99%, no acute resp distress noted. pt is on car attendant showing NSR, no acute cardiac abnormalities noted. pt bed is low, locked, armed, call light within reach, will follow plan of care.
--- NOTE | 2020-03-12 20:22 | NUR ---
NURSE NOTES: reported ABGs to doctor Baltazar from RT Kristina. Doctor stated to keep the same setting and order for Bipap. will follow order.
[2020-03-12] MEDS: Vancomycin 1.5gm/NS Premix IVPB SCH (21:17)
[2020-03-13] VITALS: BP 146/82
[2020-03-13] MEDS: Albuterol 90mcg Inhaler 8gm INH SCH ×5 (02:57→15:00)
[2020-03-13 04:00] VITALS: BP 129/78
--- NOTE | 2020-03-13 04:28 | NUR ---
NURSE NOTES: report given to Jack root RN. pt remains stable.
[2020-03-13] MEDS: Piperacillin/Tazobactam 3.375 GM in NS 110 ML IVPB SCH ×3 (06:37→22:37)
--- NOTE | 2020-03-13 07:15 | NUR ---
HAND-OFF: Report given to SHARATH Allison.
--- NOTE | 2020-03-13 07:20 | NUR ---
HAND-OFF: Report given to Yudith EARLY. Pt remains stable.
--- NOTE | 2020-03-13 07:40 | NUR ---
NURSE NOTES: Received report from Jack Christiansen
[2020-03-13 08:00] VITALS: BP 135/77
--- NOTE | 2020-03-13 09:01 | NUR ---
NURSE NOTES: Pt. in bed, alert, confused. On Bipap 16/4 and Fi O2 at 40%. No sign of distress. Seen by Dr. Ledesma and order Abg later and try to wean her from Bipap. No grimacing noted. IV at left AC #20g. in placed running 1/2 NS at 75cc/hr. Tolerating well. Bed in low position, locked. Call light within reach. Will cont. to monitor.
--- NOTE | 2020-03-13 09:02 | General Progress Note ---
Assessment/Plan Problem List: (1) COPD (chronic obstructive pulmonary disease) ICD Codes: J44.9 - Chronic obstructive pulmonary disease, unspecified SNOMED: 59978122 Qualifiers: Qualified Codes: J44.9 - Chronic obstructive pulmonary disease, unspecified (2) Pneumonia ICD Codes: J18.9 - Pneumonia, unspecified organism SNOMED: 863020662 Qualifiers: Qualified Codes: J18.9 - Pneumonia, unspecified organism (3) Fever ICD Codes: R50.9 - Fever, unspecified SNOMED: 019331578 Status: stable, progressing Assessment/Plan: wean bipap resp rx iv abx monitor abg ngt feeds Subjective ROS Limited/Unobtainable: No Constitutional: Reports: malaise, weakness HEENT: Reports: no symptoms Cardiovascular: Reports: no symptoms Respiratory: Reports: shortness of breath Gastrointestinal/Abdominal: Reports: difficulty swallowing Genitourinary: Reports: no symptoms Neurologic/Psychiatric: Reports: pre-existing deficit Endocrine: Reports: no symptoms Hematologic/Lymphatic: Reports: no symptoms Allergies: Coded Allergies: PENICILLINS (Verified Allergy, Unknown, 03/11/20) All Systems: reviewed and negative except above Subjective on bipap for resp acidosis and decreased LOC. better currently. on iv abx. NGT placed- failed swallow eval. Objective Last 24 Hour Vital Signs Date Time Temp Pulse Resp B/P (MAP) Pulse Ox O2 Delivery O2 Flow Rate FiO2 03/13/20 07:41 98 18 98 Bi-Pap 30 99 20 99 30 03/13/20 04:00 98 03/13/20 04:00 98.1 88 20 129/78 (95) 98 03/13/20 03:24 105 25 99 Bi-Pap 50 100 25 99 50 03/13/20 00:00 93 03/13/20 00:00 97.8 91 20 146/82 (103) 98 03/12/20 22:41 87 16 99 Bi-Pap 50 88 15 99 50 03/12/20 21:00 Non-Rebreather 8.0 03/12/20 20:00 98 03/12/20 20:00 98.0 91 20 131/81 (98) 98 03/12/20 19:08 97 24 99 50 03/12/20 19:05 97 24 99 Bi-Pap 50 03/12/20 16:00 97.6 86 20 127/70 (89) 98 03/12/20 16:00 110 03/12/20 15:43 18 98 03/12/20 12:00 100 03/12/20 12:00 97.9 103 22 128/83 (98) 98 03/12/20 09:00 Non-Rebreather 8.0 Intake and Output 03/12/20 03/13/20 19:00 07:00 Intake Total 75 ml 1135.0 ml Balance 75 ml 1135.0 ml Intake IV Total 75 ml 1135.0 ml # Voids 3 Laboratory Tests 03/12/20 15:19: Arterial Blood pH 7.133*L, Arterial Blood Partial Pressure CO2 92.3*H, Arterial Blood Partial Pressure O2 196.1H, Arterial Blood HCO3 30.2H, Arterial Blood Oxygen Saturation 99.0, Arterial Blood Base Excess -1.2, Keith Test Positive 03/12/20 20:04: Arterial Blood pH 7.442, Arterial Blood Partial Pressure CO2 39.0, Arterial Blood Partial Pressure O2 61.0L, Arterial Blood HCO3 26.0, Arterial Blood Oxygen Saturation 92.8L, Arterial Blood Base Excess 1.9, Keith Test Positive Height (Feet): 5 Height (Inches): 5.00 Weight (Pounds): 120 General Appearance: WD/WN, lethargic Neck: non-tender Cardiovascular: normal rate, regular rhythm Respiratory/Chest: chest wall non-tender, lungs clear, normal breath sounds Abdomen: normal bowel sounds, non tender, soft, no organomegaly Edema: no edema noted Arm (L), no edema noted Arm (R), no edema noted Leg (L), no edema noted Leg (R), no edema noted Pedal (L), no edema noted Pedal (R), no edema noted Generalized Neurologic: alert Isaak Ledesma MD Mar 13, 2020 09:02
[2020-03-13] MEDS: Ascorbic Acid 500mg tab ORAL SCH (09:38)
[2020-03-13] MEDS: Multivitamin w/Minerals tab ORAL SCH (09:39)
[2020-03-13] MEDS: OLANZapine 10mg tab ORAL SCH (09:39)
[2020-03-13] MEDS: Zinc Sulfate 220mg ORAL SCH (09:39)
[2020-03-13] MEDS: Levothyroxine 125mcg tab ORAL SCH (09:40)
[2020-03-13] MEDS: Trihexyphenidyl 2mg tab ORAL SCH ×2 (09:40→18:29)
[2020-03-13] MEDS: Heparin 5000 units/ml inj SUBQ SCH ×2 (09:41→20:16)
[2020-03-13 12:00] VITALS: BP 163/95
--- NOTE | 2020-03-13 12:30 | NUR ---
NURSE NOTES: Applied P200 mattress to pt. bed. Pt. stable on 2LPM via NC. O2 sat at 95-96% Abg result is good. Updated Dr. Ledesma.
[2020-03-13 16:00] VITALS: BP 164/95
--- NOTE | 2020-03-13 16:34 | NUR ---
*-* INSURANCE *-* ALL AVAILABLE CLINICALS AND REVIEWS HAVE BEEN FAXED TO: [facility] F: [phone] ref# [id number]
--- NOTE | 2020-03-13 16:48 | Surgery Progress Note ---
Surgery Progress Note Subjective Symptoms: tolerating diet, voiding well, passing flatus Objective Last 24 Hour Vital Signs Date Time Temp Pulse Resp B/P (MAP) Pulse Ox O2 Delivery O2 Flow Rate FiO2 03/13/20 15:42 82 03/13/20 12:00 96.6 86 19 163/95 (117) 94 03/13/20 11:53 78 03/13/20 09:00 Non-Rebreather 8.0 03/13/20 08:20 98 03/13/20 08:00 97.7 84 18 135/77 (96) 96 03/13/20 07:41 98 18 98 Bi-Pap 30 99 20 99 30 03/13/20 04:00 98 03/13/20 04:00 98.1 88 20 129/78 (95) 98 03/13/20 03:24 105 25 99 Bi-Pap 50 100 25 99 50 03/13/20 00:00 93 03/13/20 00:00 97.8 91 20 146/82 (103) 98 03/12/20 22:41 87 16 99 Bi-Pap 50 88 15 99 50 03/12/20 21:00 Non-Rebreather 8.0 03/12/20 20:00 98 03/12/20 20:00 98.0 91 20 131/81 (98) 98 03/12/20 19:08 97 24 99 50 03/12/20 19:05 97 24 99 Bi-Pap 50 I&O Intake and Output 03/12/20 03/13/20 19:00 07:00 Intake Total 75 ml 1135.0 ml Balance 75 ml 1135.0 ml Intake IV Total 75 ml 1135.0 ml # Voids 3 Dressing: saturated Wound: other Drains: other Cardiovascular: RSR Respiratory: decreased breath sounds Abdomen: soft, present bowel sounds Extremities: no cyanosis Laboratory Tests Test 03/12/20 20:04 03/13/20 12:55 Arterial Blood pH 7.442 (7.350-7.450) 7.453 (7.350-7.450) Arterial Blood Partial Pressure CO2 39.0 mmHg (35.0-45.0) 38.7 mmHg (35.0-45.0) Arterial Blood Partial Pressure O2 61.0 mmHg (75.0-100.0) L 63.7 mmHg (75.0-100.0) L Arterial Blood HCO3 26.0 mmol/L (22.0-26.0) 26.5 mmol/L (22.0-26.0) H Arterial Blood Oxygen Saturation 92.8 % (95-100) L 93.3 % (95-100) L Arterial Blood Base Excess 1.9 (-2-2) 2.5 (-2-2) H Keith Test Positive Positive Plan Problems: (1) Malnutrition Assessment & Plan: DAILY ESTIMATED NEEDS: Needs based on Wound/ 56kg 25-35 kcals/kg 6666-3608 total kcals 1.25-1.8 g protein/kg 70-100 g total protein 25-30 mL/kg 2051-0115 total fluid mLs NUTRITION DIAGNOSIS: * Swallowing difficulty R/T dysphagia as evidendced by DIALS SUPERVISOR w/ rec for NPO, nonoral feeding at this time. * Increased kcal/prot/micronutrients needs R/T wound healing as evidenced by pt admitted w/ sacral wound, pending eval. CURRENT DIET:NPO ENTERAL NUTRITION RECOMMENDATIONS: Jevity 1.2 @ 65ml/hr x 22 hrs (HOLD 1 HR BEFORE AND AFTER SYNTHROID) to provide 1430ml, 1716kcal, 79g prot, 1154ml free water * W/ GI access, initiate Jevity 1.2 @ 25ml/hr x 6hrs * Advance 10ml q 4-6 hrs as tolerated to goal * HOLD 1 hr before and after Synthroid * HOB Over 30 degrees * Without IVF, water flush of 120ml q 6hrs ADDITIONAL RECOMMENDATIONS: * Per SNF: HT=66" [id number] (03/07/20) * Monitor lytes closely w/ TF, replete as needed * Wound healing: continue Vit C add Kasi 1pkt BID via NGT * Monitor BGs w/ TF, need for coverage THIS 60 Y.O.M. WAS ADMITTED WITH ACUTE ISSUES - FEVER, HYPOXIC WITH LOW 02 SATS ON NON-REBREATHER, RESP RATE 18 BPM INITIALLY PER MEDICAL RECORD. PER RN, THE PATIENT HAD A RAPID RESPOSE THIS MORNING (DESAT TO 90S AND RAPID RESP RATE). H/O COPD, CARDIAC DZ, HYPOTHYROIDISM, HTN, ALLERGIC RHINITIS, SCHIZOPHRENIA (ON OLANZAPINE AT SNF), BASELINE NONVERBAL. PER POLST FULL TX BUT NO INFORMATION REGARDING TUBE FEEDING PREFERENCES. AT SNF ON A REGULAR DIET TEXTURE AND THIN LIQUIDS WITH PROSTAT SF DRINK WITH MEALS. NOW ON A REGULAR TEXTURE DIET AND THIN LIQUIDS BUT DID NOT TAKE ANY PO. PER RN, LAURIE, THE PT UNABLE TO TAKE LARGE PILLS BUT APPEARED TO TOLERATE CRUSHED MEDS WITH APPLESAUCE W/O OVERT ASPIRATION. PATIENT SEEN WITH RTFUNMI. PER RT RESP RATE 22 BPM AND NOT ABLE TO INITIAL IMPRESSIONS: HIGH RISK FOR A SIGNIFICANT OROPHARYNGEAL DYSPHAGIA AND SILENT ASPIRATION (H/O COPD) AND POOR/INADEQUATE INTAKE PARTICULARLY WHEN USING NON-REBREATHER (UNABLE TO SWITCH TO NASAL CANNULA PER RT). PER RN, NO APPARENT S/S OF ASPIRATION WITH CRUSHED MEDS AND APPLESAUCE. WILL HOLD ON PO TRIALS SINCE THE PATIENT IS STILL ON THE NON-REBREATHER. PATIENT IS AWAKE BUT VERY TIRED AND REFUSED PO TRIALS. SHE WAS ABLE TO MOVE HER TONGUE LEFT AND RIGHT BUT DID NOT MOVE IT FORWARD PAST HER LIPS. SHE HAS POOR AND MISSING DENTITION AND HER SPONTANEOUS COUGH WAS VERY WEAK. PER RN, NO NEED FOR ORAL SUCTION. RECOMMENDATIONS: 1. NPO AND INITIATE NGT (12 YI) NONORAL FEEDINGS 2. AGGRESSIVE ORAL CARE AND ASPIRATION PRECAUTIONS WITH WHEN TUBE FEEDINGS RUNNING 3. MODIFIED BARIUM SWALLOW STUDY WHEN READY AND WHEN NO LONGER PUI (PENDING TEST RESULTS PER RN) AND CONTINUE WITH DYSPHAGIA MANAGEMENT AND TX (2) Decubitus skin ulcer Assessment & Plan: Pt presented on admission with multiple pressure injuries. Full thickness Pressure injury Sacrococcygeal area. (L)4cm x (W)2.5cm. Base of wound is fatou with scattered slough ,which was easily removed with gentle friction. Wound is now fatou with 25% soft necrosis at distal base of wound. Small amt sanguineous exudate noted.No odor noted. Periwound erythematous and denuded. Two additional Pressure Injuries noted to R gluteal cheek.(Proximal) Base of wound is purple and indurated(L)3cm x (W)1.5cm. Surrounding erythematous and denuded skin (Distal) R gluteus(L)1.4cm x (W)0.6cm. Base of wound is purple, indurated with surrounding erythematous and denuded skin. DTPI L Gluteal cheek (L)1.5cm x (W)1.3cm. Base of wound is indurated, purple with surrounding non-blanching erythema. Additional scattered areas that are maroon in colour noted to L gluteal cheek. Lateral L Heel boggy with non-blanching erythema with delineated margins. (L) 4cm x (W)4.5cm. Lateral R Heel Boggy with non-Blanchable erythema with delineated margins(L) 2.5cm x (W)2.5cm. Tx.Plan: Cleanse Sacrococcygeal area with saline. Apply TheraHoney , Apply Moisture Barrier Paste to Sacrum, R and L Buttocks. Cover entire Area with Optifoam drsgs. Change every 3 days and prn. Apply Moisture Barrier Paste to R and L Buttocks . Cover with Optifoam drsgs. Changee very 3 days and prn. Apply Cavilon Skin Barrier to R and L Trochanteric areas. Cover with Optifoam drsg. Change every 7 days and prn. Apply Cavilon Skin Barrier to R and L Heels. Cover each heel with Optifoam drsg. Change every 7 days and prn. Reposition at least every 2hours or as tolerated. Off-load heels with Pillow. APM/ERIK Mattress. (3) Pneumonia Assessment & Plan: Lungs: There is mild left lower lobe infiltrate consistent with pneumonia. Pleural space: Unremarkable. No pneumothorax. Heart: The heart size is at the upper limits of normal. Mediastinum: Unremarkable. Bones/joints: Unremarkable. IMPRESSION: There is mild left lower lobe infiltrate consistent with pneumonia. (4) COPD (chronic obstructive pulmonary disease) (5) Fever Eddie Perez Mar 13, 2020 16:48
--- NOTE | 2020-03-13 17:10 | NUR ---
SUPERVISOR PROP MAKING DAILY TX NOTE Patient seen at bedside on nasal cannula and alert. Per RN, Patients alertness is slightly improving and able to safely complete PO medications crushed in apple sauce. VITALS ON NASAL CANNULA: HR: 86; RR: 19; SP02: 94% Patient's verbal output presents as confabulations with poor speech intelligibility, verbal output appears to be non-cohesive and instances of perseverations observed. Patient continuing to present with altered mental status. Patient's poor articulation precision appears to be partially attributed to dry oral mucosa characterized by tongue appearing parched and red, little to no saliva present, lips are cracked and peeling, dentition is natural and most of teeth are missing. SUPERVISOR PROP MAKING provided Patient oral care and lip moisturizer. Patient was repositioned upright for PO trials. -Given Thin Liquids via teaspoon, adequate oral clearance, laryngeal elevation present upon palpation appears reduced and slightly delayed, wet vocal quality noted and nonproductive and weak coughs noted. -Given [place] Thick Liquids via teaspoon, cup sip, and Puree solids, no overt s/s of aspiration, Patient benefits from verbal cues to swallow and additional time to swallow. Patient continues to be a high risk for aspiration, and would benefit from SMALL bites at a slow rate via 1 to 1 careful hand feeding, while monitoring Patients SP02% for changes/drops; Do no feed Patient if Respiratory Rate >24 breaths/min. RECOMMENDATIONS: 1.Trial Moist Puree with [place] Thick Liquids Diet via 1 to 1 careful handfeeding while implementing posted aspiration precautions - RD recommendations appreciated for diet texture/type 2.Patient requires oral hygiene BID + lip moisturizer. 3. SUPERVISOR PROP MAKING plans to continue to f/u for dysphagia tx and management. SUPERVISOR PROP MAKING made RN aware of results, recommendations, and aspiration precautions. SUPERVISOR PROP MAKING posted aspiration precautions above Patients HOB and educated Patient on POC and current diet consistency. SUPERVISOR PROP MAKING plans to continue to f/u. SUPERVISOR PROP MAKING [phone]
--- NOTE | 2020-03-13 18:10 | NUR ---
CASE MANAGEMENT: REVIEW SI: COPD . PNA T 96.6 HR 86 RR 19 BP 163/95 SAT 99% BIPAP FIO2 30 ABG: PH 7.453 PCO2 38.7 PO2 63.7 HCO3 26.5 SAT 93.3 BASE 2.5 IS: NS IVF @ 75ML/HR ZOSYN IV Q8HR VANCOMYCIN IV Q24HR HEPARIN SUBQ Q12HR STEP DOWN UNIT STATUS DCP: PATIENT IS FROM [facility]
--- NOTE | 2020-03-13 19:10 | NUR ---
NURSE NOTES: Pt report received from Yudith EARLY. pt remains stable. pt is alert and oriented times 2, no change in neuro status. pt is on nasal canula able to sat at 99% O2. no acute signs symptoms of resp distress. pt is on special education coordinator showing NSR, no acute signs symptoms of acute cardiac distress. pt bed is low, locked, armed, call light within reach, will follow plan of care.
--- NOTE | 2020-03-13 19:15 | NUR ---
HAND-OFF: Report given to Jack Christiansen RN. Pt. remain stable. On O2 at 2LPM and sating at 96%.
[2020-03-13 19:32] LABS: BASOPHILS % (AUTO) 2.4 % (0.0-2.0); EOSINOPHILS % (AUTO) 0.6 % (0.0-3.0); HEMATOCRIT 37.1 % (37.0-47.0); HEMOGLOBIN 11.7 G/DL (12.0-16.0); LYMPHOCYTES % (AUTO) 11.2 % (20.0-45.0); MEAN CORPUSCULAR VOLUME 98 FL (80-99); MONOCYTES % (AUTO) 3.8 % (1.0-10.0); PLATELET COUNT 290 K/UL (150-450); RED BLOOD COUNT 3.78 M/UL (4.20-5.40); RED CELL DISTRIBUTION WIDTH 13.2 % (11.6-14.8); WHITE BLOOD COUNT 16.6 K/UL (4.8-10.8)
[2020-03-13] MEDS: Vancomycin 1.5gm/NS Premix IVPB SCH (19:53)
[2020-03-13 19:54] LABS: ALANINE AMINOTRANSFERASE 43 U/L (12-78); ALBUMIN 1.9 G/DL (3.4-5.0); ALBUMIN/GLOBULIN RATIO 0.4 (1.0-2.7); ALKALINE PHOSPHATASE 98 U/L (46-116); ANION GAP 13 mmol/L (5-15); ASPARTATE AMINO TRANSFERASE 29 U/L (15-37); BILIRUBIN,TOTAL 0.2 MG/DL (0.2-1.0); BLOOD UREA NITROGEN 15 mg/dL (7-18); CARBON DIOXIDE 24 MMOL/L (21-32); CHLORIDE 113 MMOL/L (98-107); CREATININE 0.4 MG/DL (0.55-1.30); POTASSIUM 2.8 MMOL/L (3.5-5.1); SODIUM 151 MMOL/L (136-145)
[2020-03-13 20:00] VITALS: BP 133/87
[2020-03-13] MEDS ORDERED: Tubing IV Secondary IV ONE (20:17)
[2020-03-13] MEDS ORDERED: 1/2 NS 1000ml IV ONE (20:17)
[2020-03-14] VITALS: BP 143/88
[2020-03-14 04:00] VITALS: BP 153/81
[2020-03-14] MEDS: Piperacillin/Tazobactam 3.375 GM in NS 110 ML IVPB SCH ×3 (05:28→22:20)
[2020-03-14 06:47] LABS: ALANINE AMINOTRANSFERASE 39 U/L (12-78); ALBUMIN/GLOBULIN RATIO 0.5 (1.0-2.7); ALKALINE PHOSPHATASE 101 U/L (46-116); ANION GAP 11 mmol/L (5-15); ASPARTATE AMINO TRANSFERASE 27 U/L (15-37); BILIRUBIN,TOTAL 0.3 MG/DL (0.2-1.0); BLOOD UREA NITROGEN 12 mg/dL (7-18); CALCIUM 8.9 MG/DL (8.5-10.1); CARBON DIOXIDE 27 MMOL/L (21-32); CHLORIDE 115 MMOL/L (98-107); CREATININE 0.4 MG/DL (0.55-1.30); SODIUM 153 MMOL/L (136-145)
[2020-03-14 07:02] LABS: POTASSIUM 2.7 MMOL/L (3.5-5.1)
--- NOTE | 2020-03-14 07:26 | NUR ---
HAND-OFF: endorced plan of care to RYANNE EARLY. Pt remains stable.
--- NOTE | 2020-03-14 07:30 | NUR ---
NURSE NOTES: Will clarify with RT regarding administration of Albuterol inhaler as RT administered in the past for the patient. Will continue plan of care.
--- NOTE | 2020-03-14 07:30 | NUR ---
NURSE NOTES: Received report from SHARATH Santiago. The patient is resting on the bed without acute distress or shortness of breath, but confused and saying incomprehensible words. Communication made by verbal communication. The patient is AOx2 and confused. The patient is on 2L NC and oxygen saturation is 95%. SR with HR of 70s on the quality assurance monitor chassis now. The patient has high risk of aspiration and needs 1:1 feeder for eating. Skin issue noted and dressing intact. The patient has L AC 20G and L hand 22G that is intact and patent and running 1/2NS @75mL/hr. The patient's bed in the lowest position, call light in reach, and fall and aspiration precaution reinforced. Will follow up the lab and order. Will continue plan of care.
--- NOTE | 2020-03-14 07:45 | NUR ---
NURSE NOTES: Notified Dr. Ledesma regarding abnormal lab including WBC, Na, and Potassium. Dr. Ledesma changed IVF from 1/2NS to D5W w/ 20mEq KCL @85mL/hr. Will carry out the order as soon as possible. Will continue plan of care.
[2020-03-14 08:00] VITALS: BP 142/80
--- NOTE | 2020-03-14 08:00 | NUR ---
NURSE NOTES: The patient is stable without acute distress or shortness of breath. Vital signs noted. Will closely monitor the patient. Will continue plan of care.
[2020-03-14 08:41] LABS: MEAN CORPUSCULAR VOLUME 89 FL (80-99); PLATELET COUNT 307 K/UL (150-450); RED BLOOD COUNT 3.82 M/UL (4.20-5.40); RED CELL DISTRIBUTION WIDTH 11.5 % (11.6-14.8); WHITE BLOOD COUNT 16.2 K/UL (4.8-10.8)
[2020-03-14] MEDS: D5W w/KCl 20mEq 1,000 ML IV SCH ×4 (08:56→23:44)
[2020-03-14] MEDS: Multivitamin w/Minerals tab ORAL SCH (08:57)
[2020-03-14] MEDS: Ascorbic Acid 500mg tab ORAL SCH (08:57)
[2020-03-14] MEDS: Levothyroxine 125mcg tab ORAL SCH (08:57)
[2020-03-14] MEDS: Trihexyphenidyl 2mg tab ORAL SCH ×2 (08:57→19:36)
[2020-03-14] MEDS: Zinc Sulfate 220mg ORAL SCH (08:58)
[2020-03-14] MEDS: OLANZapine 10mg tab ORAL SCH (08:58)
[2020-03-14] MEDS: Heparin 5000 units/ml inj SUBQ SCH ×2 (08:59→20:38)
--- NOTE | 2020-03-14 09:13 | General Progress Note ---
Assessment/Plan Problem List: (1) COPD (chronic obstructive pulmonary disease) ICD Codes: J44.9 - Chronic obstructive pulmonary disease, unspecified SNOMED: 80312430 Qualifiers: Qualified Codes: J44.9 - Chronic obstructive pulmonary disease, unspecified (2) Pneumonia ICD Codes: J18.9 - Pneumonia, unspecified organism SNOMED: 666164011 Qualifiers: Qualified Codes: J18.9 - Pneumonia, unspecified organism (3) Fever ICD Codes: R50.9 - Fever, unspecified SNOMED: 430899973 Status: stable, progressing Assessment/Plan: bipap prn ivf adjusted replace k resp rx iv abx monitor abg po as tolerated Subjective ROS Limited/Unobtainable: No Constitutional: Reports: malaise, weakness HEENT: Reports: no symptoms Cardiovascular: Reports: no symptoms Respiratory: Reports: cough, shortness of breath Gastrointestinal/Abdominal: Reports: difficulty swallowing Genitourinary: Reports: no symptoms Neurologic/Psychiatric: Reports: depressed, emotional problems Endocrine: Reports: no symptoms Hematologic/Lymphatic: Reports: anemia Allergies: Coded Allergies: PENICILLINS (Verified Allergy, Unknown, 03/11/20) All Systems: reviewed and negative except above Subjective off bipap. labs noted. increased Na and low k. no fevers. more alert. tolerating some po Objective Last 24 Hour Vital Signs Date Time Temp Pulse Resp B/P (MAP) Pulse Ox O2 Delivery O2 Flow Rate FiO2 03/14/20 08:00 97.5 60 20 142/80 (100) 97 03/14/20 04:00 73 03/14/20 04:00 97.7 80 21 153/81 (105) 99 03/14/20 00:00 82 03/14/20 00:00 97.5 79 21 143/88 (106) 98 03/13/20 21:00 Non-Rebreather 8.0 03/13/20 20:59 87 22 93 Nasal Cannula 2.0 28 03/13/20 20:00 77 03/13/20 20:00 97.8 83 21 133/87 (102) 96 03/13/20 16:00 98.1 78 21 164/95 (118) 95 03/13/20 15:42 82 03/13/20 12:00 96.6 86 19 163/95 (117) 94 6/9/20 11:53 78 Intake and Output 03/13/20 03/14/20 19:00 07:00 Intake Total 825 ml 1162.5 ml Balance 825 ml 1162.5 ml Intake IV Total 825 ml 1162.5 ml Laboratory Tests 03/13/20 12:55: Arterial Blood pH 7.453H, Arterial Blood Partial Pressure CO2 38.7, Arterial Blood Partial Pressure O2 63.7L, Arterial Blood HCO3 26.5H, Arterial Blood Oxygen Saturation 93.3L, Arterial Blood Base Excess 2.5H, Keith Test Positive 03/13/20 18:15: White Blood Count 16.6H, Red Blood Count 3.78L, Hemoglobin 11.7L, Hematocrit 37.1, Mean Corpuscular Volume 98, Mean Corpuscular Hemoglobin 30.8, Mean Corpuscular Hemoglobin Concent 31.4L, Red Cell Distribution Width 13.2, Platelet Count 290, Mean Platelet Volume 8.6, Neutrophils (%) (Auto) 82.0H, Lymphocytes (%) (Auto) 11.2L, Monocytes (%) (Auto) 3.8, Eosinophils (%) (Auto) 0.6, Basophils (%) (Auto) 2.4H, Sodium Level 151H, Potassium Level 2.8L, Chloride Level 113H, Carbon Dioxide Level 24, Anion Gap 13, Blood Urea Nitrogen 15, Creatinine 0.4L, Estimat Glomerular Filtration Rate > 60, Glucose Level 89, Calcium Level 9.0, Total Bilirubin 0.2, Aspartate Amino Transf (AST/SGOT) 29, Alanine Aminotransferase (ALT/SGPT) 43, Alkaline Phosphatase 98, Total Protein 6.4, Albumin 1.9L, Globulin 4.5, Albumin/Globulin Ratio 0.4L 03/14/20 05:10: White Blood Count 16.2H, Red Blood Count 3.82L, Hemoglobin 12.0, Hematocrit 34.0L, Mean Corpuscular Volume 89#, Mean Corpuscular Hemoglobin 31.4H, Mean Corpuscular Hemoglobin Concent 35.3, Red Cell Distribution Width 11.5L, Platelet Count 307, Mean Platelet Volume 6.1L, Neutrophils (%) (Auto) , Lymphocytes (%) (Auto) , Monocytes (%) (Auto) , Eosinophils (%) (Auto) , Basophils (%) (Auto) , Sodium Level 153H, Potassium Level 2.7*L, Chloride Level 115H, Carbon Dioxide Level 27, Anion Gap 11, Blood Urea Nitrogen 12, Creatinine 0.4L, Estimat Glomerular Filtration Rate > 60, Glucose Level 93, Calcium Level 8.9, Total Bilirubin 0.3, Aspartate Amino Transf (AST/SGOT) 27, Alanine Aminotransferase (ALT/SGPT) 39, Alkaline Phosphatase 101, Total Protein 6.3L, Albumin 2.0L, Globulin 4.3, Albumin/Globulin Ratio 0.5L, Differential Total Cells Counted 100, Neutrophils % (Manual) 86H, Lymphocytes % (Manual) 10L, Monocytes % (Manual) 3, Eosinophils % (Manual) 1, Basophils % (Manual) 0, Band Neutrophils 0, Platelet Estimate Adequate, Platelet Morphology Normal, Red Blood Cell Morphology Normal Height (Feet): 5 Height (Inches): 5.00 Weight (Pounds): 110 Objective General Appearance: WD/WN, lethargic Neck: non-tender Cardiovascular: normal rate, regular rhythm Respiratory/Chest: chest wall non-tender, lungs clear, normal breath sounds Abdomen: normal bowel sounds, non tender, soft, no organomegaly Edema: no edema noted Arm (L), no edema noted Arm (R), no edema noted Leg (L), no edema noted Leg (R), no edema noted Pedal (L), no edema noted Pedal (R), no edema noted Generalized Neurologic: alert Isaak Ledesma MD Mar 14, 2020 09:13
--- NOTE | 2020-03-14 10:00 | NUR ---
NURSE NOTES: Morning medications administered as ordered. The patient tolerated well. Will closely monitor the patient. Will continue plan of care.
--- NOTE | 2020-03-14 10:13 | NUR ---
RADIOLOGY DEPT., CHEST X-RAY DONE.-P.DYE
--- NOTE | 2020-03-14 10:56 | CDS Physician Query ---
Clarification is required for compliance, coding accuracy, and to reflect severity of illness for this patient Dear Dr. Isaak Ledesma Date: 03/14/2020 CDS name: Corina Aldrich Clinical Documentation: HNP: 60-year-old female with minimal complaints of shortness of breath and fevers secondary to pneumonia Vitals/labs on admit: WBC 12.6, HR 109, RR 24, Temp 99.0 Treatment: IV vancomycin, pip-tazo According to the clinical indications above, please indicate below the condition PHYSICIAN RESPONSE: [x] Sepsis [] SIRS [] SIRS with organ dysfunction [] Septic Shock [] Not applicable [] Other: Present on Admission: x Yes No Clinically Undetermined Physician signature Date Please also document in your Progress Notes and/or Discharge Summary and indicate if the condition was present on admission. MTDD
--- NOTE | 2020-03-14 11:00 | NUR ---
NURSE NOTES: Will clarify with RT regarding administration of Albuterol inhaler as RT administered in the past for the patient. Will continue plan of care.
--- NOTE | 2020-03-14 11:11 | CDS Physician Query ---
Clarification is required for compliance, coding accuracy, and to reflect severity of illness for this patient Dear Dr. Isaak Ledesma Date 03/14/2020 Silver Recovery Operator/HERB Aldrich Clinical Documentation: HNP: This is a 60-year-old female with minimal complaints of shortness of breath and fevers secondary to pneumonia Blood gas 03/12: ph 7.133, pCO2 92.3; 03/11 pO2 57.1 03/11 spO2 95 on 12 L Please clarify if the patient had any of the following conditions based on the above clinical findings: [x] Acute Respiratory Failure [] Chronic Respiratory Failure [] Acute on Chronic Respiratory Failure [] Acute Respiratory Distress [] Other: [] Unable to Determined Present on Admission: [] Yes [] No [] Clinically Undetermined Physician signature Date Please also document in your Progress Notes and/or Discharge Summary and indicate if the condition was present on admission. BETO
--- NOTE | 2020-03-14 11:16 | CDS Physician Query ---
Clarification is required for compliance, coding accuracy, and to reflect severity of illness for this patient Dear Dr. Isaak Ledesma Date: 03/14/2020 Dairy Farmer/CDS Name: Corina Aldrich Clinical Documentation: Surgery consult: 60-year-old male medical communities presented with respiratory insufficiency admitted further care management noted to have malnutrition abnormal labs decubitus ulcer surgery called to evaluate assist with care RD note: * Swallowing difficulty R/T dysphagia as evidendced by LIFE SCIENCE TECHNICAL OFFICER w/ rec for NPO, nonoral feeding at this time. * Increased kcal/prot/micronutrients needs R/T wound healing as evidenced by pt admitted w/ sacral wound, pending eval. BMI 18.3 Please select the most appropriate option: In order to accurately code this and to reflect the appropriate severity of ilness, please clarify diagnosis. [] Mild Malnutrition [] Moderate Malnutrition [x] Severe Malnutrition [] Unknown degree [] Other: [] Clinically Undetermined Present on Admission: [x] Yes [] No [] Clinically Undetermined Physician signature Date Please also document in your Progress Notes and/or Discharge Summary and indicate if the condition was present on admission. MTDD
--- NOTE | 2020-03-14 11:19 | Diagnostic Imaging Report ---
Indication: Cough Technique: One view of the chest Comparison: 03/11/2020 Findings: Interim considerable improvement of previously demonstrated left lower lobe infiltrate. There is a residual disease in the retrocardiac region as well as generalized reticular interstitial opacities throughout the left mid and lower lung. There is questionably a 3 cm spiculated opacity projected over the apex. Minimal right mid and lower lung reticular opacities are also demonstrated. There is some right midlung atelectasis versus thickening of the minor fissure. The heart size is normal. The pleural spaces are clear Impression: Considerable improvement the persistence of previously demonstrated left mid and lower lung infiltrates, since prior study of 03/11/2020 Suggestion of a 3 cm opacity projected over the left heart border, probably represents residual infiltrate by follow-up radiographs are recommended to ensure resolution and exclude underlying mass lesion Other findings as noted
[2020-03-14 11:30] VITALS: BP 145/81
--- NOTE | 2020-03-14 12:00 | NUR ---
NURSE NOTES: The patient is stable without acute distress or shortness of breath. Lunch given by the primary nurse and tolerated well. Will closely monitor the patient. Will continue plan of care.
--- NOTE | 2020-03-14 12:42 | NUR ---
CASE MANAGEMENT: REVIEW SI: COPD . PNA T 97.5 HR 79 RR 21 BP 153/81 SAT 95% NON-REBREATHER FLOW RATE 8.0 WBC 16.2 NA 153 K 2.7 IS: D5 w/KCl 20MEQ IVF @ 85ML/HR ZOSYN IV Q8HR VANCOMYCIN IV Q24HR HEPARIN SUBQ Q12HR STEP DOWN UNIT STATUS DCP: PATIENT IS FROM [facility]
--- NOTE | 2020-03-14 14:00 | NUR ---
NURSE NOTES: The patient is resting on the bed comfortably. The patient is on 2L NC and oxygen saturation within normal range. Will closely monitor the patient. Will continue plan of care.
--- NOTE | 2020-03-14 14:08 | Surgery Progress Note ---
Surgery Progress Note Subjective Additional Comments no acute events labs noted micro reviewed exam stable no n/v/f/c Objective Last 24 Hour Vital Signs Date Time Temp Pulse Resp B/P (MAP) Pulse Ox O2 Delivery O2 Flow Rate FiO2 03/14/20 11:30 97.7 73 20 145/81 (102) 95 03/14/20 08:00 97.5 60 20 142/80 (100) 97 03/14/20 07:33 66 03/14/20 04:00 73 03/14/20 04:00 97.7 80 21 153/81 (105) 99 03/14/20 00:00 82 03/14/20 00:00 97.5 79 21 143/88 (106) 98 03/13/20 21:00 Non-Rebreather 8.0 03/13/20 20:59 87 22 93 Nasal Cannula 2.0 28 03/13/20 20:00 77 03/13/20 20:00 97.8 83 21 133/87 (102) 96 03/13/20 16:00 98.1 78 21 164/95 (118) 95 03/13/20 15:42 82 I&O Intake and Output 03/13/20 03/14/20 19:00 07:00 Intake Total 825 ml 1162.5 ml Balance 825 ml 1162.5 ml Intake IV Total 825 ml 1162.5 ml Dressing: other Wound: other Drains: other Cardiovascular: RSR Respiratory: decreased breath sounds Abdomen: soft, non-tender, present bowel sounds Extremities: no cyanosis Laboratory Tests Test 03/13/20 18:15 03/14/20 05:10 White Blood Count 16.6 K/UL (4.8-10.8) H 16.2 K/UL (4.8-10.8) H Red Blood Count 3.78 M/UL (4.20-5.40) L 3.82 M/UL (4.20-5.40) L Hemoglobin 11.7 G/DL (12.0-16.0) L 12.0 G/DL (12.0-16.0) Hematocrit 37.1 % (37.0-47.0) 34.0 % (37.0-47.0) L Mean Corpuscular Volume 98 FL (80-99) 89 FL (80-99) # Mean Corpuscular Hemoglobin 30.8 PG (27.0-31.0) 31.4 PG (27.0-31.0) H Mean Corpuscular Hemoglobin Concent 31.4 G/DL (32.0-36.0) L 35.3 G/DL (32.0-36.0) Red Cell Distribution Width 13.2 % (11.6-14.8) 11.5 % (11.6-14.8) L Platelet Count 290 K/UL (150-450) 307 K/UL (150-450) Mean Platelet Volume 8.6 FL (6.5-10.1) 6.1 FL (6.5-10.1) L Neutrophils (%) (Auto) 82.0 % (45.0-75.0) H % (45.0-75.0) Lymphocytes (%) (Auto) 11.2 % (20.0-45.0) L % (20.0-45.0) Monocytes (%) (Auto) 3.8 % (1.0-10.0) % (1.0-10.0) Eosinophils (%) (Auto) 0.6 % (0.0-3.0) % (0.0-3.0) Basophils (%) (Auto) 2.4 % (0.0-2.0) H % (0.0-2.0) Sodium Level 151 MMOL/L (136-145) H 153 MMOL/L (136-145) H Potassium Level 2.8 MMOL/L (3.5-5.1) L 2.7 MMOL/L (3.5-5.1) *L Chloride Level 113 MMOL/L (98-107) H 115 MMOL/L (98-107) H Carbon Dioxide Level 24 MMOL/L (21-32) 27 MMOL/L (21-32) Anion Gap 13 mmol/L (5-15) 11 mmol/L (5-15) Blood Urea Nitrogen 15 mg/dL (7-18) 12 mg/dL (7-18) Creatinine 0.4 MG/DL (0.55-1.30) L 0.4 MG/DL (0.55-1.30) L Estimat Glomerular Filtration Rate > 60 mL/min (>60) > 60 mL/min (>60) Glucose Level 89 MG/DL (74-106) 93 MG/DL (74-106) Calcium Level 9.0 MG/DL (8.5-10.1) 8.9 MG/DL (8.5-10.1) Total Bilirubin 0.2 MG/DL (0.2-1.0) 0.3 MG/DL (0.2-1.0) Aspartate Amino Transf (AST/SGOT) 29 U/L (15-37) 27 U/L (15-37) Alanine Aminotransferase (ALT/SGPT) 43 U/L (12-78) 39 U/L (12-78) Alkaline Phosphatase 98 U/L (46-116) 101 U/L (46-116) Total Protein 6.4 G/DL (6.4-8.2) 6.3 G/DL (6.4-8.2) L Albumin 1.9 G/DL (3.4-5.0) L 2.0 G/DL (3.4-5.0) L Globulin 4.5 g/dL 4.3 g/dL Albumin/Globulin Ratio 0.4 (1.0-2.7) L 0.5 (1.0-2.7) L Differential Total Cells Counted 100 Neutrophils % (Manual) 86 % (45-75) H Lymphocytes % (Manual) 10 % (20-45) L Monocytes % (Manual) 3 % (1-10) Eosinophils % (Manual) 1 % (0-3) Basophils % (Manual) 0 % (0-2) Band Neutrophils 0 % (0-8) Platelet Estimate Adequate Platelet Morphology Normal Red Blood Cell Morphology Normal Plan Problems: (1) Malnutrition Assessment & Plan: DAILY ESTIMATED NEEDS: Needs based on Wound/ 56kg 25-35 kcals/kg 5490-3265 total kcals 1.25-1.8 g protein/kg 70-100 g total protein 25-30 mL/kg 2396-2436 total fluid mLs NUTRITION DIAGNOSIS: * Swallowing difficulty R/T dysphagia as evidendced by TRANSIT CLERK w/ rec for NPO, nonoral feeding at this time. * Increased kcal/prot/micronutrients needs R/T wound healing as evidenced by pt admitted w/ sacral wound, pending eval. CURRENT DIET:NPO ENTERAL NUTRITION RECOMMENDATIONS: Jevity 1.2 @ 65ml/hr x 22 hrs (HOLD 1 HR BEFORE AND AFTER SYNTHROID) to provide 1430ml, 1716kcal, 79g prot, 1154ml free water * W/ GI access, initiate Jevity 1.2 @ 25ml/hr x 6hrs * Advance 10ml q 4-6 hrs as tolerated to goal * HOLD 1 hr before and after Synthroid * HOB Over 30 degrees * Without IVF, water flush of 120ml q 6hrs ADDITIONAL RECOMMENDATIONS: * Per SNF: HT=66" DL=247die (03/07/20) * Monitor lytes closely w/ TF, replete as needed * Wound healing: continue Vit C add Kasi 1pkt BID via NGT * Monitor BGs w/ TF, need for coverage THIS 60 Y.O.M. WAS ADMITTED WITH ACUTE ISSUES - FEVER, HYPOXIC WITH LOW 02 SATS ON NON-REBREATHER, RESP RATE 18 BPM INITIALLY PER MEDICAL RECORD. PER RN, THE PATIENT HAD A RAPID RESPOSE THIS MORNING (DESAT TO 90S AND RAPID RESP RATE). H/O COPD, CARDIAC DZ, HYPOTHYROIDISM, HTN, ALLERGIC RHINITIS, SCHIZOPHRENIA (ON OLANZAPINE AT SNF), BASELINE NONVERBAL. PER POLST FULL TX BUT NO INFORMATION REGARDING TUBE FEEDING PREFERENCES. AT SNF ON A REGULAR DIET TEXTURE AND THIN LIQUIDS WITH PROSTAT SF DRINK WITH MEALS. NOW ON A REGULAR TEXTURE DIET AND THIN LIQUIDS BUT DID NOT TAKE ANY PO. PER RNLAURIE, THE PT UNABLE TO TAKE LARGE PILLS BUT APPEARED TO TOLERATE CRUSHED MEDS WITH APPLESAUCE W/O OVERT ASPIRATION. PATIENT SEEN WITH RTFUNMI. PER RT RESP RATE 22 BPM AND NOT ABLE TO INITIAL IMPRESSIONS: HIGH RISK FOR A SIGNIFICANT OROPHARYNGEAL DYSPHAGIA AND SILENT ASPIRATION (H/O COPD) AND POOR/INADEQUATE INTAKE PARTICULARLY WHEN USING NON-REBREATHER (UNABLE TO SWITCH TO NASAL CANNULA PER RT). PER RN, NO APPARENT S/S OF ASPIRATION WITH CRUSHED MEDS AND APPLESAUCE. WILL HOLD ON PO TRIALS SINCE THE PATIENT IS STILL ON THE NON-REBREATHER. PATIENT IS AWAKE BUT VERY TIRED AND REFUSED PO TRIALS. SHE WAS ABLE TO MOVE HER TONGUE LEFT AND RIGHT BUT DID NOT MOVE IT FORWARD PAST HER LIPS. SHE HAS POOR AND MISSING DENTITION AND HER SPONTANEOUS COUGH WAS VERY WEAK. PER RN, NO NEED FOR ORAL SUCTION. RECOMMENDATIONS: 1. NPO AND INITIATE NGT (12 LITHUANIAN) NONORAL FEEDINGS 2. AGGRESSIVE ORAL CARE AND ASPIRATION PRECAUTIONS WITH WHEN TUBE FEEDINGS RUNNING 3. MODIFIED BARIUM SWALLOW STUDY WHEN READY AND WHEN NO LONGER PUI (PENDING TEST RESULTS PER RN) AND CONTINUE WITH DYSPHAGIA MANAGEMENT AND TX (2) Decubitus skin ulcer Assessment & Plan: Pt presented on admission with multiple pressure injuries. Full thickness Pressure injury Sacrococcygeal area. (L)4cm x (W)2.5cm. Base of wound is fatou with scattered slough ,which was easily removed with gentle friction. Wound is now fatou with 25% soft necrosis at distal base of wound. Small amt sanguineous exudate noted.No odor noted. Periwound erythematous and denuded. Two additional Pressure Injuries noted to R gluteal cheek.(Proximal) Base of wound is purple and indurated(L)3cm x (W)1.5cm. Surrounding erythematous and denuded skin (Distal) R gluteus(L)1.4cm x (W)0.6cm. Base of wound is purple, indurated with surrounding erythematous and denuded skin. DTPI L Gluteal cheek (L)1.5cm x (W)1.3cm. Base of wound is indurated, purple with surrounding non-blanching erythema. Additional scattered areas that are maroon in colour noted to L gluteal cheek. Lateral L Heel boggy with non-blanching erythema with delineated margins. (L) 4cm x (W)4.5cm. Lateral R Heel Boggy with non-Blanchable erythema with delineated margins(L) 2.5cm x (W)2.5cm. Tx.Plan: Cleanse Sacrococcygeal area with saline. Apply TheraHoney , Apply Moisture Barrier Paste to Sacrum, R and L Buttocks. Cover entire Area with Optifoam drsgs. Change every 3 days and prn. Apply Moisture Barrier Paste to R and L Buttocks . Cover with Optifoam drsgs. Changee very 3 days and prn. Apply Cavilon Skin Barrier to R and L Trochanteric areas. Cover with Optifoam drsg. Change every 7 days and prn. Apply Cavilon Skin Barrier to R and L Heels. Cover each heel with Optifoam drsg. Change every 7 days and prn. Reposition at least every 2hours or as tolerated. Off-load heels with Pillow. APM/ERIK Mattress. (3) Pneumonia Assessment & Plan: Lungs: There is mild left lower lobe infiltrate consistent with pneumonia. Pleural space: Unremarkable. No pneumothorax. Heart: The heart size is at the upper limits of normal. Mediastinum: Unremarkable. Bones/joints: Unremarkable. IMPRESSION: There is mild left lower lobe infiltrate consistent with pneumonia. (4) COPD (chronic obstructive pulmonary disease) (5) Fever Eddie Perez Mar 14, 2020 14:08
--- NOTE | 2020-03-14 14:48 | NUR ---
CABLE TOOL OPERATOR DAILY [place] NOTE Patient seen at bedside, on 2 L NC, alert, VSS for the duration of the session. Per RN, Patient completed medication management with no overt s/s of aspiration; consumed breakfast meal, noted to cough x1 on last bite of food with Patient's swallow appearing to be slow. Patient appears slightly more alert today, ongoing unintelligible confabulations. Patient did request a sandwich, however, not appropriate for regular texture at this time. VITALS ON 2 L NASAL CANNULA: HR: 73; RR: 20; SP02: 95% Patient's oral hygiene is improving, ongoing poor speech intelligibility which appears to be more due to poor articulation precision/oral motor coordination versus 2/2 dry mouth. CXR on 03/14/20: Findings: Interim considerable improvement of previously demonstrated left lower lobe infiltrate. There is a residual disease in the retrocardiac region as well as generalized reticular interstitial opacities throughout the left mid and lower lung. There is questionably a 3 cm spiculated opacity projected over the apex. Minimal right mid and lower lung reticular opacities are also demonstrated. There is some right midlung atelectasis versus thickening of the minor fissure. The heart size is normal. The pleural spaces are clear Impression: Considerable improvement the persistence of previously demonstrated left mid and lower lung infiltrates, since prior study of 03/11/2020. CABLE TOOL OPERATOR plans to continue to f/u and monitor Patients readiness for PO trials for diet texture upgrade. RN aware of recommendations, plan, and aspiration precautions sign posted above Patients HOB. RECOMMENDATIONS: 1. Continue Moist Puree with [place] Thick Liquids Diet via 1 to 1 careful handfeeding while implementing posted aspiration precautions - RD recommendations appreciated for diet texture/type 2. Patient requires oral hygiene BID + lip moisturizer. 3. CABLE TOOL OPERATOR plans to continue to f/u for dysphagia tx and management. CABLE TOOL OPERATOR [phone]
--- NOTE | 2020-03-14 15:00 | NUR ---
NURSE NOTES: Clarified with RT saying that RN needs to administer MDI treatment, which is albuterol inhaler. Will administer inhaler as ordered from now on as clarification made. Will continue plan of care.
[2020-03-14 16:00] VITALS: BP 145/85
--- NOTE | 2020-03-14 16:00 | NUR ---
NURSE NOTES: Bed bath given to the patient. Hard stool noted. The patient tolerated well. The patient is still on 2L NC. Will continue plan of care.
--- NOTE | 2020-03-14 18:00 | NUR ---
NURSE NOTES: About to administer 1800 medication but EMR and computer system is down and not working. Will administer medication as soon as EMR and computer system turns back on. Will continue plan of care.
[2020-03-14] MEDS: Albuterol 90mcg Inhaler 8gm INH SCH ×2 (19:36→22:20)
--- NOTE | 2020-03-14 19:40 | NUR ---
NURSE NOTES: Administered 1800 medication as soon as computer and EMR work back again. The patient tolerated well. Will closely monitor the patient. Will continue plan of care.
--- NOTE | 2020-03-14 19:45 | NUR ---
HAND-OFF: Report given to SHARATH Roque. The patient is stable at this time. Endorsed plan of care.
--- NOTE | 2020-03-14 19:46 | NUR ---
NURSE NOTES: Received patient from SHARATH Morrison. Patient is aaox1, verbal with delay, vss, and no acute distress. Patient is in bed, on lunchroom monitor, 2L nasal canula, and with a Purewick in place. Skin issues noted with dressing intact. L AC 20g and left hand 22g IV site is intact and patent. D5w with 20meq KCL running at 85mL/hr on her left hand IV. Bed is at its lowest position, bed is locked, call light in reach and x3 bed rails are up. Will continue to monitor.
[2020-03-14 20:00] VITALS: BP 154/95
[2020-03-14] MEDS ORDERED: Vancomycin 1 GM in NS 275 ML IVPB SCH (21:00)
--- NOTE | 2020-03-14 22:48 | NUR ---
NURSE NOTES: Second Novel Covcale swabbed on her righr nares completed and sent to lab.
--- NOTE | 2020-03-14 23:25 | NUR ---
HAND-OFF: Report given to SHARATH Ramirez.
--- NOTE | 2020-03-14 23:35 | NUR ---
NURSE NOTES: Received report from SHARATH Roque. Patient was transferred to Telemetry unit from SDU without incident. No signs of acute distress noted; denies pain at this time. On 2L nasal cannula. AOx1; able to make needs known to a degree. Checked IV site, lines, and IV rate; patent and running. No erythema, bleeding, or infiltration noted. Will take wound photo. Patient on P200, low air loss mattress for appropriate wound management. Bed at lowest position, brakes on, siderails up x3. Call light within reach. Will continue to monitor.
[2020-03-15] VITALS: BP 156/72
[2020-03-15 04:00] VITALS: BP 113/63
[2020-03-15] MEDS: Albuterol 90mcg Inhaler 8gm INH SCH ×6 (04:36→23:53)
--- NOTE | 2020-03-15 04:38 | NUR ---
NURSE NOTES: Unable to scan Proventil inhaler.
[2020-03-15] MEDS: Piperacillin/Tazobactam 3.375 GM in NS 110 ML IVPB SCH ×3 (06:04→22:53)
[2020-03-15] MEDS: Levothyroxine 125mcg tab ORAL SCH (06:04)
--- NOTE | 2020-03-15 07:40 | NUR ---
HAND-OFF: Report given to SHARATH Delarosa. Patient is resting in bed comfortably. On 2L nasal cannula. In stable condition.
[2020-03-15 08:00] VITALS: BP 108/75
--- NOTE | 2020-03-15 08:00 | NUR ---
NURSE NOTES: recv pt. Pt is AOX1 and lying in bed comfortably. Pt is on NC @2L with no sign of sob or resp distress. Pt is on taxation accountant showing SR. IV site is c/d/i. Pt is bedbound. Bed in lowest locked position, call light within reach, will continue with plan of care
[2020-03-15 08:32] LABS: ANION GAP 8 mmol/L (5-15); BLOOD UREA NITROGEN 13 mg/dL (7-18); CALCIUM 8.4 MG/DL (8.5-10.1); CARBON DIOXIDE 31 MMOL/L (21-32); CHLORIDE 112 MMOL/L (98-107); CREATININE 0.6 MG/DL (0.55-1.30); SODIUM 150 MMOL/L (136-145)
[2020-03-15] MEDS ORDERED: OLANZapine 10mg tab ORAL SCH (09:00)
[2020-03-15] MEDS: Heparin 5000 units/ml inj SUBQ SCH ×2 (09:00→21:28)
[2020-03-15 09:16] LABS: POTASSIUM 2.6 MMOL/L (3.5-5.1)
--- NOTE | 2020-03-15 09:23 | NUR ---
NURSE NOTES: Called Dr Ledesma to notify of K 2.6 and Na 150. Waiting for call back for repl
[2020-03-15] MEDS: Trihexyphenidyl 2mg tab ORAL SCH ×2 (10:04→18:19)
[2020-03-15] MEDS: Multivitamin w/Minerals tab ORAL SCH (10:05)
[2020-03-15] MEDS: Zinc Sulfate 220mg ORAL SCH (10:05)
[2020-03-15] MEDS: OLANZapine 10mg tab ORAL SCH (10:05)
[2020-03-15] MEDS: Vancomycin 1 GM in NS 275 ML IVPB SCH ×2 (10:05→21:16)
[2020-03-15] MEDS: Ascorbic Acid 500mg tab ORAL SCH (10:05)
--- NOTE | 2020-03-15 11:18 | Surgery Progress Note ---
Surgery Progress Note Subjective Symptoms: improved, tolerating diet, passing flatus Objective Last 24 Hour Vital Signs Date Time Temp Pulse Resp B/P (MAP) Pulse Ox O2 Delivery O2 Flow Rate FiO2 03/15/20 08:00 97.7 87 20 108/75 (86) 94 03/15/20 04:00 67 03/15/20 04:00 98.8 94 20 113/63 (80) 97 03/15/20 00:00 97.3 95 18 156/72 (100) 95 03/15/20 00:00 80 03/14/20 20:00 97.5 78 18 154/95 (114) 94 03/14/20 20:00 80 03/14/20 18:00 Nasal Cannula 2.0 03/14/20 16:00 74 03/14/20 16:00 98.1 81 20 145/85 (105) 95 03/14/20 16:00 Nasal Cannula 2.0 03/14/20 12:00 Nasal Cannula 2.0 03/14/20 12:00 73 03/14/20 11:36 73 03/14/20 11:30 97.7 73 20 145/81 (102) 95 I&O Intake and Output 03/14/20 03/15/20 19:00 07:00 Intake Total 500 ml 1204.274 ml Output Total 1100 ml Balance -600 ml 1204.274 ml Intake Oral 500 ml IV Total 1204.274 ml Output Urine Total 1100 ml # Voids 2 # Bowel Movements 2 Dressing: saturated Wound: other Drains: other Cardiovascular: RSR Respiratory: decreased breath sounds Abdomen: soft, present bowel sounds Extremities: no cyanosis Laboratory Tests Test 03/14/20 19:09 03/15/20 07:30 Vancomycin Level Trough 6.7 ug/mL (5.0-12.0) Sodium Level 150 MMOL/L (136-145) H Potassium Level 2.6 MMOL/L (3.5-5.1) *L Chloride Level 112 MMOL/L (98-107) H Carbon Dioxide Level 31 MMOL/L (21-32) Anion Gap 8 mmol/L (5-15) Blood Urea Nitrogen 13 mg/dL (7-18) Creatinine 0.6 MG/DL (0.55-1.30) Estimat Glomerular Filtration Rate > 60 mL/min (>60) Glucose Level 170 MG/DL (74-106) H Calcium Level 8.4 MG/DL (8.5-10.1) L Plan Problems: (1) Malnutrition Assessment & Plan: DAILY ESTIMATED NEEDS: Needs based on Wound/ 56kg 25-35 kcals/kg 8212-1776 total kcals 1.25-1.8 g protein/kg 70-100 g total protein 25-30 mL/kg 2670-0673 total fluid mLs NUTRITION DIAGNOSIS: * Swallowing difficulty R/T dysphagia as evidendced by POWDER HAND w/ rec for NPO, nonoral feeding at this time. * Increased kcal/prot/micronutrients needs R/T wound healing as evidenced by pt admitted w/ sacral wound, pending eval. CURRENT DIET:NPO ENTERAL NUTRITION RECOMMENDATIONS: Jevity 1.2 @ 65ml/hr x 22 hrs (HOLD 1 HR BEFORE AND AFTER SYNTHROID) to provide 1430ml, 1716kcal, 79g prot, 1154ml free water * W/ GI access, initiate Jevity 1.2 @ 25ml/hr x 6hrs * Advance 10ml q 4-6 hrs as tolerated to goal * HOLD 1 hr before and after Synthroid * HOB Over 30 degrees * Without IVF, water flush of 120ml q 6hrs ADDITIONAL RECOMMENDATIONS: * Per SNF: HT=66" VS=[id number] (03/07/20) * Monitor lytes closely w/ TF, replete as needed * Wound healing: continue Vit C add Kasi 1pkt BID via NGT * Monitor BGs w/ TF, need for coverage THIS 60 Y.O.M. WAS ADMITTED WITH ACUTE ISSUES - FEVER, HYPOXIC WITH LOW 02 SATS ON NON-REBREATHER, RESP RATE 18 BPM INITIALLY PER MEDICAL RECORD. PER RN, THE PATIENT HAD A RAPID RESPOSE THIS MORNING (DESAT TO 90S AND RAPID RESP RATE). H/O COPD, CARDIAC DZ, HYPOTHYROIDISM, HTN, ALLERGIC RHINITIS, SCHIZOPHRENIA (ON OLANZAPINE AT SNF), BASELINE NONVERBAL. PER POLST FULL TX BUT NO INFORMATION REGARDING TUBE FEEDING PREFERENCES. AT SNF ON A REGULAR DIET TEXTURE AND THIN LIQUIDS WITH PROSTAT SF DRINK WITH MEALS. NOW ON A REGULAR TEXTURE DIET AND THIN LIQUIDS BUT DID NOT TAKE ANY PO. PER LAURIE EARLY, THE PT UNABLE TO TAKE LARGE PILLS BUT APPEARED TO TOLERATE CRUSHED MEDS WITH APPLESAUCE W/O OVERT ASPIRATION. PATIENT SEEN WITH RTFUNMI. PER RT RESP RATE 22 BPM AND NOT ABLE TO ongoing unintelligible confabulations. Patient did request a sandwich, however, not appropriate for regular texture at this time. VITALS ON 2 L NASAL CANNULA: HR: 73; RR: 20; SP02: 95% Patient's oral hygiene is improving, ongoing poor speech intelligibility which appears to be more due to poor articulation precision/oral motor coordination versus 2/2 dry mouth. CXR on 03/14/20: Findings: Interim considerable improvement of previously demonstrated left lower lobe infiltrate. There is a residual disease in the retrocardiac region as well as generalized reticular interstitial opacities throughout the left mid and lower lung. There is questionably a 3 cm spiculated opacity projected over the apex. Minimal right mid and lower lung reticular opacities are also demonstrated. There is some right midlung atelectasis versus thickening of the minor fissure. The heart size is normal. The pleural spaces are clear Impression: Considerable improvement the persistence of previously demonstrated left mid and lower lung infiltrates, since prior study of 03/11/2020. POWDER HAND plans to continue to f/u and monitor Patients readiness for PO trials for diet texture upgrade. RN aware of recommendations, plan, and aspiration precautions sign posted above Patients HOB. RECOMMENDATIONS: 1. Continue Moist Puree with [place] Thick Liquids Diet via 1 to 1 careful handfeeding while implementing posted aspiration precautions - RD recommendations appreciated for diet texture/type 2. Patient requires oral hygiene BID + lip moisturizer. (2) Decubitus skin ulcer Assessment & Plan: Pt presented on admission with multiple pressure injuries. Full thickness Pressure injury Sacrococcygeal area. (L)4cm x (W)2.5cm. Base of wound is fatou with scattered slough ,which was easily removed with gentle friction. Wound is now fatou with 25% soft necrosis at distal base of wound. Small amt sanguineous exudate noted.No odor noted. Periwound erythematous and denuded. Two additional Pressure Injuries noted to R gluteal cheek.(Proximal) Base of wound is purple and indurated(L)3cm x (W)1.5cm. Surrounding erythematous and denuded skin (Distal) R gluteus(L)1.4cm x (W)0.6cm. Base of wound is purple, indurated with surrounding erythematous and denuded skin. DTPI L Gluteal cheek (L)1.5cm x (W)1.3cm. Base of wound is indurated, purple with surrounding non-blanching erythema. Additional scattered areas that are maroon in colour noted to L gluteal cheek. Lateral L Heel boggy with non-blanching erythema with delineated margins. (L) 4cm x (W)4.5cm. Lateral R Heel Boggy with non-Blanchable erythema with delineated margins(L) 2.5cm x (W)2.5cm. Tx.Plan: Cleanse Sacrococcygeal area with saline. Apply TheraHoney , Apply Moisture Barrier Paste to Sacrum, R and L Buttocks. Cover entire Area with Optifoam drsgs. Change every 3 days and prn. Apply Moisture Barrier Paste to R and L Buttocks . Cover with Optifoam drsgs. Changee very 3 days and prn. Apply Cavilon Skin Barrier to R and L Trochanteric areas. Cover with Optifoam drsg. Change every 7 days and prn. Apply Cavilon Skin Barrier to R and L Heels. Cover each heel with Optifoam drsg. Change every 7 days and prn. Reposition at least every 2hours or as tolerated. Off-load heels with Pillow. APM/ERIK Mattress. (3) Pneumonia Assessment & Plan: Lungs: There is mild left lower lobe infiltrate consistent with pneumonia. Pleural space: Unremarkable. No pneumothorax. Heart: The heart size is at the upper limits of normal. Mediastinum: Unremarkable. Bones/joints: Unremarkable. IMPRESSION: There is mild left lower lobe infiltrate consistent with pneumonia. (4) COPD (chronic obstructive pulmonary disease) (5) Fever Eddie Perez Mar 15, 2020 11:18
--- NOTE | 2020-03-15 11:31 | NUR ---
CASE MANAGEMENT:REVIEW 03/15/20 SI: COPD. PNA. FEVER 97.7 87 20 108/75 94% ON 2L/NC NA+150 K-2.6 IS: IV VANCOMYCIN Q12 IV ZOSYN Q8HRS IVF@85/HR IV KL Q1HRS X2 HEPARIN SQ Q12 ALBUTEROL INH Q4HRS : NOW ON TELEMETRY FROM SDU DCP: FROM [facility] PLAN: COVID NEGATIVE 2ND COVID PENDING
[2020-03-15] MEDS: D5W w/KCl 20mEq 1,000 ML IV SCH ×2 (11:47→17:00)
[2020-03-15 12:00] VITALS: BP 146/74
--- NOTE | 2020-03-15 15:00 | NUR ---
Speech Pathology: INTERN PRODUCT MARKETING MANAGER DAILY TX NOTE Patient cleared for ST intervention by SHARATH Delarosa. Patient on 2 lit nasal cannula. She was alert and agreeable to ST intervention. Patient repositioned from neck extension to head flexed slightly forward for P.O. trials of 4 oz. puree and 8 oz nectar thick liquids presented in 5ml amounts via spoon.Patient presented with severe xerostomia, weak non/clearing, non/productive cough, wet upper airway sounds/wet vocal quality post swallow, lethargy, confusion (0x1), respiration rate changes during P.O. trials, and double swallows required to clear bolus through pharynx. Insufficient vocal volume, limited sustained voicing and speech intelligibility deficits also noted. Patient oriented x1 POLST: Full Code Stage III Sacral Wound CXR on 03/14/20: Findings: Interim considerable improvement of previously demonstrated left lower lobe infiltrate. There is a residual disease in the retrocardiac region as well as generalized reticular interstitial opacities throughout the left mid and lower lung. There is questionably a 3 cm spiculated opacity projected over the apex. Minimal right mid and lower lung reticular opacities are also demonstrated. There is some right midlung atelectasis versus thickening of the minor fissure. The heart size is normal. The pleural spaces are clear Impression: Considerable improvement the persistence of previously demonstrated left mid and lower lung infiltrates, since prior study of 03/11/20 RECOMMENDATIONS: 1. Continue NPO status pending findings of MBSS which we will attempt to schedule for 03/16/20 2. Patient requires oral hygiene BID + lip moisturizer. 3. INTERN PRODUCT MARKETING MANAGER to f/u for MBSS and subsequent recommendations. Discussed findings with SHARATH Delarosa.
[2020-03-15 16:00] VITALS: BP 120/79
--- NOTE | 2020-03-15 16:03 | General Progress Note ---
Assessment/Plan Problem List: (1) COPD (chronic obstructive pulmonary disease) ICD Codes: J44.9 - Chronic obstructive pulmonary disease, unspecified SNOMED: [id number] Qualifiers: Qualified Codes: J44.9 - Chronic obstructive pulmonary disease, unspecified (2) Pneumonia ICD Codes: J18.9 - Pneumonia, unspecified organism SNOMED: 638519323 Qualifiers: Qualified Codes: J18.9 - Pneumonia, unspecified organism (3) Fever ICD Codes: R50.9 - Fever, unspecified SNOMED: 024552254 Status: stable, progressing Assessment/Plan: bipap prn ivf adjusted replace k resp rx iv abx monitor abg video swalllow improving dc planning tomorrow if passes swallow eval Subjective ROS Limited/Unobtainable: No Constitutional: Reports: malaise, weakness HEENT: Reports: no symptoms Cardiovascular: Reports: no symptoms Respiratory: Reports: cough Gastrointestinal/Abdominal: Reports: difficulty swallowing Genitourinary: Reports: no symptoms Neurologic/Psychiatric: Reports: anxiety, pre-existing deficit Endocrine: Reports: no symptoms Hematologic/Lymphatic: Reports: no symptoms Allergies: Coded Allergies: PENICILLINS (Verified Allergy, Unknown, 03/11/20) All Systems: reviewed and negative except above Subjective off bipap. labs noted. increased Na and low k. no fevers. more alert. tolerating some po speech noted. Objective Last 24 Hour Vital Signs Date Time Temp Pulse Resp B/P (MAP) Pulse Ox O2 Delivery O2 Flow Rate FiO2 03/15/20 12:00 77 03/15/20 12:00 97.7 75 20 146/74 (98) 95 03/15/20 09:00 Nasal Cannula 2.0 03/15/20 08:00 77 03/15/20 08:00 97.7 87 20 108/75 (86) 94 03/15/20 04:00 67 03/15/20 04:00 98.8 94 20 113/63 (80) 97 03/15/20 00:00 97.3 95 18 156/72 (100) 95 03/15/20 00:00 80 03/14/20 20:00 97.5 78 18 154/95 (114) 94 03/14/20 20:00 80 03/14/20 18:00 Nasal Cannula 2.0 Intake and Output 03/14/20 03/15/20 19:00 07:00 Intake Total 500 ml 1204.274 ml Output Total 1100 ml Balance -600 ml 1204.274 ml Intake Oral 500 ml IV Total 1204.274 ml Output Urine Total 1100 ml # Voids 2 # Bowel Movements 2 Laboratory Tests 03/14/20 19:09: Vancomycin Level Trough 6.7 03/15/20 07:30: Sodium Level 150H, Potassium Level 2.6*L, Chloride Level 112H, Carbon Dioxide Level 31, Anion Gap 8, Blood Urea Nitrogen 13, Creatinine 0.6, Estimat Glomerular Filtration Rate > 60, Glucose Level 170H, Calcium Level 8.4L Height (Feet): 5 Height (Inches): 5.00 Weight (Pounds): 110 Objective General Appearance: WD/WN, lethargic Neck: non-tender Cardiovascular: normal rate, regular rhythm Respiratory/Chest: chest wall non-tender, lungs clear, normal breath sounds Abdomen: normal bowel sounds, non tender, soft, no organomegaly Edema: no edema noted Arm (L), no edema noted Arm (R), no edema noted Leg (L), no edema noted Leg (R), no edema noted Pedal (L), no edema noted Pedal (R), no edema noted Generalized Neurologic: alert Isaak Ledesma MD Mar 15, 2020 16:03
--- NOTE | 2020-03-15 16:50 | NUR ---
*-* INSURANCE *-* UPDATED CLINICALS AND REVIEWS HAVE BEEN FAXED TO: [facility] F: [phone] ref# [id number]
--- NOTE | 2020-03-15 19:00 | NUR ---
NURSE NOTES: Received hand-off report from SHARATH Delarosa. Received patient resting in bed in semi-fowlers position. IV left AC 20g clean, dry, intact, patent, flushing, no redness, no swelling, no leaking. IV left hand 22g running prescribed fluids at prescribed rate and site is clean, dry, intact, patent, flushing, no redness, no swelling, no leaking. Cardiac leads in place, gospel worker working, bed in lowest and lock position, call light within reach, bed alarm activated. No acute distress noted. Patient condition is stable.
[2020-03-15 20:00] VITALS: BP 129/80
[2020-03-15] MEDS ORDERED: Vancomycin 1.5gm/NS Premix 275 ML IVPB SCH (21:00)
[2020-03-16] VITALS: BP 107/62
[2020-03-16] MEDS: D5W w/KCl 20mEq 1,000 ML IV SCH ×3 (02:46→22:30)
[2020-03-16] MEDS: Albuterol 90mcg Inhaler 8gm INH SCH ×6 (02:47→22:27)
[2020-03-16 04:00] VITALS: BP 136/72
[2020-03-16] MEDS: Piperacillin/Tazobactam 3.375 GM in NS 110 ML IVPB SCH ×2 (05:49→14:00)
[2020-03-16] MEDS: Levothyroxine 125mcg tab ORAL SCH (05:50)
[2020-03-16 07:07] LABS: BASOPHILS % (AUTO) 0.9 % (0.0-2.0); EOSINOPHILS % (AUTO) 2.1 % (0.0-3.0); HEMATOCRIT 36.6 % (37.0-47.0); HEMOGLOBIN 12.4 G/DL (12.0-16.0); LYMPHOCYTES % (AUTO) 22.1 % (20.0-45.0); MEAN CORPUSCULAR VOLUME 93 FL (80-99); MONOCYTES % (AUTO) 5.6 % (1.0-10.0); NEUTROPHILS % (AUTO) 69.3 % (45.0-75.0); PLATELET COUNT 296 K/UL (150-450); RED BLOOD COUNT 3.92 M/UL (4.20-5.40); RED CELL DISTRIBUTION WIDTH 11.7 % (11.6-14.8); WHITE BLOOD COUNT 10.3 K/UL (4.8-10.8)
--- NOTE | 2020-03-16 07:10 | NUR ---
HAND-OFF: Report given to SHARATH Delarosa. Provided patient oral care, tolerated well. IV site is clean, dry, intact, flushing well, no redness, no swelling, no leaking, running prescribed fluids at prescribed rate. Patient is resting in semi-fowlers, NC 2L, cardiac leads in place, gleason gear generator working, bed in lowest and locked position, bed alarm activated, call light within reach.
[2020-03-16 07:27] LABS: ALANINE AMINOTRANSFERASE 30 U/L (12-78); ALBUMIN 1.9 G/DL (3.4-5.0); ALBUMIN/GLOBULIN RATIO 0.5 (1.0-2.7); ALKALINE PHOSPHATASE 81 U/L (46-116); ANION GAP 7 mmol/L (5-15); ASPARTATE AMINO TRANSFERASE 23 U/L (15-37); BILIRUBIN,TOTAL 0.2 MG/DL (0.2-1.0); BLOOD UREA NITROGEN 8 mg/dL (7-18); CALCIUM 8.5 MG/DL (8.5-10.1); CARBON DIOXIDE 32 MMOL/L (21-32); CHLORIDE 111 MMOL/L (98-107); CREATININE 0.6 MG/DL (0.55-1.30); POTASSIUM 2.8 MMOL/L (3.5-5.1); SODIUM 150 MMOL/L (136-145)
--- NOTE | 2020-03-16 07:39 | NUR ---
NURSE NOTES: recv pt. Pt is sleeping and lying in bed comfortably. Pt is on NC @2L with no sign of sob or resp distress. Pt is on equipment monitor phototypesetting. IV site is c/d/i and infusing with no sign of redness, swelling or infiltration. Pt is bedbound. Bed in lowest locked position, call light within reach, will continue with plan of care
[2020-03-16 08:00] VITALS: BP 138/84
[2020-03-16] MEDS: Trihexyphenidyl 2mg tab ORAL SCH ×2 (08:58→17:02)
[2020-03-16] MEDS: Multivitamin w/Minerals tab ORAL SCH (08:58)
[2020-03-16] MEDS: Ascorbic Acid 500mg tab ORAL SCH (08:58)
[2020-03-16] MEDS: OLANZapine 10mg tab ORAL SCH (08:59)
[2020-03-16] MEDS: Vancomycin 1 GM in NS 275 ML IVPB SCH (08:59)
[2020-03-16] MEDS: Zinc Sulfate 220mg ORAL SCH (08:59)
[2020-03-16] MEDS: Heparin 5000 units/ml inj SUBQ SCH ×2 (09:00→21:01)
--- NOTE | 2020-03-16 09:10 | NUR ---
NURSE NOTES: Pt is negative covid x2, notified dr Ledesma to DC droplet precaution, pt still needs contact prec for VRE
--- NOTE | 2020-03-16 09:50 | NUR ---
CASE MANAGEMENT:REVIEW 03/15/20 SI: COPD. PNA. COVID NEGATIVE X2 97.7 69 19 138/84 97% ON 2L/NC NA+150 K-2.8 IS: IV VANCOMYCIN Q12 IV ZOSYN Q8HRS IVF@85/HR IV KL Q1HRS X2 HEPARIN SQ Q12 ALBUTEROL INH Q4HRS : NOW ON TELEMETRY FROM SDU DCP: FROM [facility] PLAN: CORRECT ELECTROLYTES
--- NOTE | 2020-03-16 10:25 | NUR ---
RD ASSESSMENT & RECOMMENDATIONS SEE CARE ACTIVITY FOR COMPLETE ASSESSMENT DAILY ESTIMATED NEEDS: Needs based on Wound/ 56kg 25-35 kcals/kg 5738-9788 total kcals 1.25-1.8 g protein/kg 70-100 g total protein 25-30 mL/kg 3072-3292 total fluid mLs NUTRITION DIAGNOSIS: * Swallowing difficulty R/T dysphagia as evidendced by FURNACE FEEDER w/ rec for NPO, pending MBSS. * Increased kcal/prot/micronutrients needs R/T wound healing as evidenced by pt admitted w/ multiple wounds including full thickness wound @ sacrum, DTPI wound @ L Gluteal cheek, and non-Blanchable erythema @ BL heels. CURRENT DIET:NPO PO DIET RECOMMENDATIONS: REGULAR, texture per FURNACE FEEDER + Ensure Enlive TID ADDITIONAL RECOMMENDATIONS: * Per SNF: HT=66" VA=439lap (03/07/20) * Wound healing: continue MVI, Vit C, and ZnSO4 * Monitor for possible diet initiation- pending MBSS -> consult RD for TF rec if indicated * Monitor lytes, replete as needed
[2020-03-16 12:00] VITALS: BP 139/80
--- NOTE | 2020-03-16 13:56 | General Progress Note ---
Assessment/Plan Problem List: (1) COPD (chronic obstructive pulmonary disease) ICD Codes: J44.9 - Chronic obstructive pulmonary disease, unspecified SNOMED: [id number] Qualifiers: Qualified Codes: J44.9 - Chronic obstructive pulmonary disease, unspecified (2) Pneumonia ICD Codes: J18.9 - Pneumonia, unspecified organism SNOMED: 831695884 Qualifiers: Qualified Codes: J18.9 - Pneumonia, unspecified organism (3) Fever ICD Codes: R50.9 - Fever, unspecified SNOMED: 318472117 Status: stable, progressing Assessment/Plan: o2 hypotonic ivf replace k resp rx iv abx monitor abg video swalllow improving dc planning tomorrow if passes swallow eval Subjective ROS Limited/Unobtainable: No Constitutional: Reports: malaise, weakness HEENT: Reports: no symptoms Cardiovascular: Reports: no symptoms Respiratory: Reports: cough, shortness of breath Gastrointestinal/Abdominal: Reports: no symptoms Genitourinary: Reports: no symptoms Neurologic/Psychiatric: Reports: emotional problems Endocrine: Reports: no symptoms Hematologic/Lymphatic: Reports: no symptoms Allergies: Coded Allergies: PENICILLINS (Verified Allergy, Unknown, 03/11/20) All Systems: reviewed and negative except above Subjective no events. sodium still high. cxr improved. await video swallow. Objective Last 24 Hour Vital Signs Date Time Temp Pulse Resp B/P (MAP) Pulse Ox O2 Delivery O2 Flow Rate FiO2 03/16/20 09:00 Nasal Cannula 2.0 03/16/20 08:00 97.7 66 19 138/84 (102) 97 03/16/20 08:00 69 03/16/20 04:00 68 03/16/20 04:00 98.0 93 20 136/72 (93) 95 03/16/20 00:00 61 03/16/20 00:00 98.0 78 19 107/62 (77) 95 03/15/20 21:00 Nasal Cannula 2.0 03/15/20 20:10 90 20 94 Nasal Cannula 2.0 28 03/15/20 20:00 97.9 68 20 129/80 (96) 94 03/15/20 20:00 68 03/15/20 16:00 98.1 74 20 120/79 (93) 98 03/15/20 16:00 66 Intake and Output 03/15/20 03/16/20 18:59 06:59 Intake Total 110.7 ml 500 ml Output Total 500 ml Balance -389.3 ml 500 ml Intake Oral 500 ml IV Total 110.7 ml Output Urine Total 500 ml # Voids 2 2 # Bowel Movements 1 Laboratory Tests 03/16/20 05:45: White Blood Count 10.3, Red Blood Count 3.92L, Hemoglobin 12.4, Hematocrit 36.6L , Mean Corpuscular Volume 93, Mean Corpuscular Hemoglobin 31.5H, Mean Corpuscular Hemoglobin Concent 33.7, Red Cell Distribution Width 11.7, Platelet Count 296, Mean Platelet Volume 7.6, Neutrophils (%) (Auto) 69.3, Lymphocytes (% ) (Auto) 22.1, Monocytes (%) (Auto) 5.6, Eosinophils (%) (Auto) 2.1, Basophils ( %) (Auto) 0.9, Erythrocyte Sedimentation Rate 96H, Sodium Level 150H, Potassium Level 2.8L, Chloride Level 111H, Carbon Dioxide Level 32, Anion Gap 7, Blood Urea Nitrogen 8, Creatinine 0.6, Estimat Glomerular Filtration Rate > 60, Glucose Level 114H, Calcium Level 8.5, Magnesium Level 1.9, Total Bilirubin 0.2 , Aspartate Amino Transf (AST/SGOT) 23, Alanine Aminotransferase (ALT/SGPT) 30, Alkaline Phosphatase 81, C-Reactive Protein, Quantitative 7.2H, Total Protein 6.1L, Albumin 1.9L, Globulin 4.2, Albumin/Globulin Ratio 0.5L 03/16/20 08:10: Vancomycin Level Trough 10.8 Height (Feet): 5 Height (Inches): 5.00 Weight (Pounds): 110 Objective General Appearance: WD/WN, lethargic Neck: non-tender Cardiovascular: normal rate, regular rhythm Respiratory/Chest: chest wall non-tender, lungs clear, normal breath sounds Abdomen: normal bowel sounds, non tender, soft, no organomegaly Edema: no edema noted Arm (L), no edema noted Arm (R), no edema noted Leg (L), no edema noted Leg (R), no edema noted Pedal (L), no edema noted Pedal (R), no edema noted Generalized Neurologic: alert Isaak Ledesma MD Mar 16, 2020 13:56
--- NOTE | 2020-03-16 14:11 | NUR ---
*-* INSURANCE *-* UPDATED CLINICALS AND REVIEWS HAVE BEEN FAXED TO: [facility] F: [phone] ref# [id number]
[2020-03-16] MEDS ORDERED: Varibar Honey 250ml MC PRN (14:30)
[2020-03-16] MEDS ORDERED: Varibar Nectar 240ml MC PRN (14:30)
[2020-03-16] MEDS ORDERED: Varibar Pudding 230ml MC PRN (14:30)
--- NOTE | 2020-03-16 14:32 | NUR ---
BUSINESS AREA DIRECTOR MBSS RESULTS COMPLETED MBSS WITH PATIENT, COMPLETE REPORT IN CARE ACTIVITY SECTION Patient given PO trials of thin liquids via tsp and nectar thick liquids via tsp, both resulting in immediate overt s/s of aspiration. Due to patient safety, no additional trials given. Patient will require alternative nutrition/hydration (NGT 12 GUYANESE) and for medication management due the severity of dysphagia. INITIAL IMPRESSIONS Moderately severe oropharyngeal dysphagia with delayed swallow initiation, incomplete and late closure of laryngeal vestibular, immediate aspiration with thin liquids and nectar thick liquids. Patients coughing are ineffective and weak. ESOPHAGEAL PHASE Patient noted to have brief stasis and minimal distention of pharyngoesophageal segment opening, with marked obstruction of bolus flow resulting in bolus retention in valleculae. Radiographic evidence of aspiration from bolus in valleculae. Patient did cough however, coughs were weak and ineffective in clearing aspirated materials. Of note, Patient was unable to maintain normal neck positioning, at baseline, Patient appears to have hyperextension neck positioning. RECOMMENDATIONS: 1. NPO, 12 GUYANESE for nutrition/hydration and medication management 2. BUSINESS AREA DIRECTOR plans to f/u for diet tolerance and dysphagia tx/management. 3. Patient would benefit from GI consult due to s/s of esophageal dysphagia. Formal report to follow. BUSINESS AREA DIRECTOR [id number]
--- NOTE | 2020-03-16 15:18 | Surgery Progress Note ---
Surgery Progress Note Subjective Additional Comments esr/crp noted alb 1.9 otherwise stable Objective Last 24 Hour Vital Signs Date Time Temp Pulse Resp B/P (MAP) Pulse Ox O2 Delivery O2 Flow Rate FiO2 03/16/20 12:00 98.0 69 19 139/80 (99) 97 03/16/20 09:00 Nasal Cannula 2.0 03/16/20 08:00 97.7 66 19 138/84 (102) 97 03/16/20 08:00 69 03/16/20 04:00 68 03/16/20 04:00 98.0 93 20 136/72 (93) 95 03/16/20 00:00 61 03/16/20 00:00 98.0 78 19 107/62 (77) 95 03/15/20 21:00 Nasal Cannula 2.0 03/15/20 20:10 90 20 94 Nasal Cannula 2.0 28 03/15/20 20:00 97.9 68 20 129/80 (96) 94 03/15/20 20:00 68 03/15/20 16:00 98.1 74 20 120/79 (93) 98 03/15/20 16:00 66 I&O Intake and Output 03/15/20 03/16/20 19:00 07:00 Intake Total 500 ml Output Total 500 ml Balance -500 ml 500 ml Intake Oral 500 ml Output Urine Total 500 ml # Voids 2 2 # Bowel Movements 1 Dressing: other Wound: other Drains: other Cardiovascular: RSR Respiratory: decreased breath sounds Abdomen: soft, present bowel sounds Extremities: no cyanosis Laboratory Tests Test 03/16/20 05:45 03/16/20 08:10 White Blood Count 10.3 K/UL (4.8-10.8) Red Blood Count 3.92 M/UL (4.20-5.40) L Hemoglobin 12.4 G/DL (12.0-16.0) Hematocrit 36.6 % (37.0-47.0) L Mean Corpuscular Volume 93 FL (80-99) Mean Corpuscular Hemoglobin 31.5 PG (27.0-31.0) H Mean Corpuscular Hemoglobin Concent 33.7 G/DL (32.0-36.0) Red Cell Distribution Width 11.7 % (11.6-14.8) Platelet Count 296 K/UL (150-450) Mean Platelet Volume 7.6 FL (6.5-10.1) Neutrophils (%) (Auto) 69.3 % (45.0-75.0) Lymphocytes (%) (Auto) 22.1 % (20.0-45.0) Monocytes (%) (Auto) 5.6 % (1.0-10.0) Eosinophils (%) (Auto) 2.1 % (0.0-3.0) Basophils (%) (Auto) 0.9 % (0.0-2.0) Erythrocyte Sedimentation Rate 96 MM/HR (0-30) H Sodium Level 150 MMOL/L (136-145) H Potassium Level 2.8 MMOL/L (3.5-5.1) L Chloride Level 111 MMOL/L (98-107) H Carbon Dioxide Level 32 MMOL/L (21-32) Anion Gap 7 mmol/L (5-15) Blood Urea Nitrogen 8 mg/dL (7-18) Creatinine 0.6 MG/DL (0.55-1.30) Estimat Glomerular Filtration Rate > 60 mL/min (>60) Glucose Level 114 MG/DL (74-106) H Calcium Level 8.5 MG/DL (8.5-10.1) Magnesium Level 1.9 MG/DL (1.8-2.4) Total Bilirubin 0.2 MG/DL (0.2-1.0) Aspartate Amino Transf (AST/SGOT) 23 U/L (15-37) Alanine Aminotransferase (ALT/SGPT) 30 U/L (12-78) Alkaline Phosphatase 81 U/L (46-116) C-Reactive Protein, Quantitative 7.2 mg/dL (0.00-0.90) H Total Protein 6.1 G/DL (6.4-8.2) L Albumin 1.9 G/DL (3.4-5.0) L Globulin 4.2 g/dL Albumin/Globulin Ratio 0.5 (1.0-2.7) L Vancomycin Level Trough 10.8 ug/mL (5.0-12.0) Plan Problems: (1) Malnutrition Assessment & Plan: DAILY ESTIMATED NEEDS: Needs based on Wound/ 56kg 25-35 kcals/kg 3589-3902 total kcals 1.25-1.8 g protein/kg 70-100 g total protein 25-30 mL/kg 8535-6125 total fluid mLs NUTRITION DIAGNOSIS: * Swallowing difficulty R/T dysphagia as evidendced by TAX MANAGER CPA w/ rec for NPO, pending MBSS. * Increased kcal/prot/micronutrients needs R/T wound healing as evidenced by pt admitted w/ multiple wounds including full thickness wound @ sacrum, DTPI wound @ L Gluteal cheek, and non-Blanchable erythema @ BL heels. CURRENT DIET:NPO PO DIET RECOMMENDATIONS: REGULAR, texture per TAX MANAGER CPA + Ensure Enlive TID ADDITIONAL RECOMMENDATIONS: * Per SNF: HT=65" [id number]=[id number] (03/07/20) * Wound healing: continue MVI, Vit C, and ZnSO4 * Monitor for possible diet initiation- pending MBSS -> consult RD for TF rec if indicated * Monitor lytes, replete as needed THIS 60 Y.O.M. WAS ADMITTED WITH ACUTE ISSUES - FEVER, HYPOXIC WITH LOW 02 SATS ON NON-REBREATHER, RESP RATE 18 BPM INITIALLY PER MEDICAL RECORD. PER RN, THE PATIENT HAD A RAPID RESPOSE THIS MORNING (DESAT TO 90S AND RAPID RESP RATE). H/O COPD, CARDIAC DZ, HYPOTHYROIDISM, HTN, ALLERGIC RHINITIS, SCHIZOPHRENIA (ON OLANZAPINE AT SNF), BASELINE NONVERBAL. PER POLST FULL TX BUT NO INFORMATION REGARDING TUBE FEEDING PREFERENCES. AT SNF ON A REGULAR DIET TEXTURE AND THIN LIQUIDS WITH PROSTAT SF DRINK WITH MEALS. NOW ON A REGULAR TEXTURE DIET AND THIN LIQUIDS BUT DID NOT TAKE ANY PO. PER LAURIE EARLY, THE PT UNABLE TO TAKE LARGE PILLS BUT APPEARED TO TOLERATE CRUSHED MEDS WITH APPLESAUCE W/O OVERT ASPIRATION. PATIENT SEEN WITH FUNMI HEATH. PER RT RESP RATE 22 BPM AND NOT ABLE TO ongoing unintelligible confabulations. Patient did request a sandwich, however, not appropriate for regular texture at this time. VITALS ON 2 L NASAL CANNULA: HR: 73; RR: 20; SP02: 95% Patient's oral hygiene is improving, ongoing poor speech intelligibility which appears to be more due to poor articulation precision/oral motor coordination versus 2/2 dry mouth. CXR on 03/14/20: Findings: Interim considerable improvement of previously demonstrated left lower lobe infiltrate. There is a residual disease in the retrocardiac region as well as generalized reticular interstitial opacities throughout the left mid and lower lung. There is questionably a 3 cm spiculated opacity projected over the apex. Minimal right mid and lower lung reticular opacities are also demonstrated. There is some right midlung atelectasis versus thickening of the minor fissure. The heart size is normal. The pleural spaces are clear Impression: Considerable improvement the persistence of previously demonstrated left mid and lower lung infiltrates, since prior study of 03/11/2020. TAX MANAGER CPA plans to continue to f/u and monitor Patients readiness for PO trials for diet texture upgrade. RN aware of recommendations, plan, and aspiration precautions sign posted above Patients HOB. RECOMMENDATIONS: 1. Continue Moist Puree with [place] [facility] Thick Liquids Diet via 1 to 1 careful handfeeding while implementing posted aspiration precautions - RD recommendations appreciated for diet texture/type 2. Patient requires oral hygiene BID + lip moisturizer. (2) Decubitus skin ulcer Assessment & Plan: Pt presented on admission with multiple pressure injuries. Full thickness Pressure injury Sacrococcygeal area. (L)4cm x (W)2.5cm. Base of wound is fatou with scattered slough ,which was easily removed with gentle friction. Wound is now fatou with 25% soft necrosis at distal base of wound. Small amt sanguineous exudate noted.No odor noted. Periwound erythematous and denuded. Two additional Pressure Injuries noted to R gluteal cheek.(Proximal) Base of wound is purple and indurated(L)3cm x (W)1.5cm. Surrounding erythematous and denuded skin (Distal) R gluteus(L)1.4cm x (W)0.6cm. Base of wound is purple, indurated with surrounding erythematous and denuded skin. DTPI L Gluteal cheek (L)1.5cm x (W)1.3cm. Base of wound is indurated, purple with surrounding non-blanching erythema. Additional scattered areas that are maroon in colour noted to L gluteal cheek. Lateral L Heel boggy with non-blanching erythema with delineated margins. (L) 4cm x (W)4.5cm. Lateral R Heel Boggy with non-Blanchable erythema with delineated margins(L) 2.5cm x (W)2.5cm. Tx.Plan: Cleanse Sacrococcygeal area with saline. Apply TheraHoney , Apply Moisture Barrier Paste to Sacrum, R and L Buttocks. Cover entire Area with Optifoam drsgs. Change every 3 days and prn. Apply Moisture Barrier Paste to R and L Buttocks . Cover with Optifoam drsgs. Changee very 3 days and prn. Apply Cavilon Skin Barrier to R and L Trochanteric areas. Cover with Optifoam drsg. Change every 7 days and prn. Apply Cavilon Skin Barrier to R and L Heels. Cover each heel with Optifoam drsg. Change every 7 days and prn. Reposition at least every 2hours or as tolerated. Off-load heels with Pillow. APM/ERIK Mattress. (3) Pneumonia Assessment & Plan: Lungs: There is mild left lower lobe infiltrate consistent with pneumonia. Pleural space: Unremarkable. No pneumothorax. Heart: The heart size is at the upper limits of normal. Mediastinum: Unremarkable. Bones/joints: Unremarkable. IMPRESSION: There is mild left lower lobe infiltrate consistent with pneumonia. (4) COPD (chronic obstructive pulmonary disease) (5) Fever MunirEddie naranjo Mar 16, 2020 15:18
[2020-03-16 16:00] VITALS: BP 127/78
[2020-03-16] MEDS: Vancomycin 750mg/NS 275ml IVPB SCH ×2 (17:02)
--- NOTE | 2020-03-16 19:02 | NUR ---
NURSE NOTES: Received hand-off report from SHARATH Delarosa. IV site is clean, dry, intact, flushing well, no redness, no swelling, no leaking, running prescribed fluids at prescribed rate. Patient is resting in semi-fowlers, NC 3L, cardiac leads in place, school lunch monitor working, bed in lowest and locked position, bed alarm activated, call light within reach. Pure wick is in place and functioning. There was 600 mL of urine in the canister. Low air loss mattress is functioning. Heels floating with pillows under.
[2020-03-16 20:00] VITALS: BP 150/88
--- NOTE | 2020-03-16 20:35 | NUR ---
NURSE NOTES: Discontinued droplet precaution per Dr. Ledesma. Pt is negative for COVID-19 x2.
[2020-03-17] VITALS: BP 128/72
[2020-03-17] MEDS: Vancomycin 750mg/NS 275ml IVPB SCH ×6 (00:32→17:32)
--- NOTE | 2020-03-17 00:50 | NUR ---
NURSE NOTES: Replaced nasal cannula with a new one. Patient is resting with NC on 3L. Patient is in stable condition, and no distress is noted at this time. IV is patent, intact, dry, and flushing well. Administered prescribed Vancomycin in left antecubital 20g IV at 183.3 mL / hr. No adverse reactions noted.
--- NOTE | 2020-03-17 00:55 | NUR ---
NURSE NOTES: Cleansed face with hypoallergenic wipes; nasal passages and ears intact, no redness, no signs of irritation. Provided gauze dressings for ear protection from nasal cannula device. Cleaned left antecubital IV site with alcohol and changed IV site dressing.
[2020-03-17] MEDS: Albuterol 90mcg Inhaler 8gm INH SCH ×6 (02:30→23:00)
[2020-03-17 04:00] VITALS: BP 122/86
[2020-03-17 05:32] LABS: EOSINOPHILS % (AUTO) 2.5 % (0.0-3.0); HEMATOCRIT 38.2 % (37.0-47.0); HEMOGLOBIN 12.7 G/DL (12.0-16.0); MEAN CORPUSCULAR VOLUME 95 FL (80-99); MONOCYTES % (AUTO) 6.2 % (1.0-10.0); NEUTROPHILS % (AUTO) 66.2 % (45.0-75.0); PLATELET COUNT 274 K/UL (150-450); RED BLOOD COUNT 4.02 M/UL (4.20-5.40); RED CELL DISTRIBUTION WIDTH 11.7 % (11.6-14.8); WHITE BLOOD COUNT 8.6 K/UL (4.8-10.8)
[2020-03-17] MEDS: Levothyroxine 125mcg tab ORAL SCH (05:48)
[2020-03-17 05:53] LABS: ALANINE AMINOTRANSFERASE 26 U/L (12-78); ALBUMIN 2.1 G/DL (3.4-5.0); ALBUMIN/GLOBULIN RATIO 0.5 (1.0-2.7); ALKALINE PHOSPHATASE 80 U/L (46-116); ANION GAP 5 mmol/L (5-15); ASPARTATE AMINO TRANSFERASE 26 U/L (15-37); BILIRUBIN,TOTAL 0.3 MG/DL (0.2-1.0); BLOOD UREA NITROGEN 5 mg/dL (7-18); CALCIUM 8.8 MG/DL (8.5-10.1); CARBON DIOXIDE 34 MMOL/L (21-32); CHLORIDE 111 MMOL/L (98-107); CREATININE 0.7 MG/DL (0.55-1.30); POTASSIUM 3.7 MMOL/L (3.5-5.1); SODIUM 150 MMOL/L (136-145)
--- NOTE | 2020-03-17 06:30 | NUR ---
NURSE NOTES: Noted the patient's left hand is slightly swollen. Discontinued left hand 22g. No bleeding noted. Gauze and tape applied.
--- NOTE | 2020-03-17 07:11 | NUR ---
NURSE NOTES: Notified Dr. Ledesma that pt failed video swallow. Speech therapist recommended that pt stays NPO, possible NGT placement, and GI consult due to s/s of esophageal dysphagia. Dr. Ledesma said he will order NGT and GI consult. Endorsed to morning RN.
--- NOTE | 2020-03-17 07:15 | NUR ---
HAND-OFF: Report given to SHARATH Burch. Patient is resting with NC on 3L. Patient is in stable condition, and no distress is noted at this time. Antecubital 20g IV is patent, intact, dry, flushing well, running prescribed IV fluids. No adverse reactions noted. Left hand has +1 edema, warm to touch, dry, intact and clean. Cardiac leads in place, night monitor working, call light within reach, bed in lowest and locked position, bed alarm activated. Patient is alert and oriented x1, pupils round, reactive (brisk), and equal. Lung sounds clear bilateral throughout.
--- NOTE | 2020-03-17 07:45 | NUR ---
NURSE NOTES: pt in bed awake and talking AOx1. Pt is not complaining of pain. lunchroom monitor on, no signs of cardiac or respiratory distress at this time. Bed locked in lowest position. Side rails up x2, bed alarm on and call light within reach. will continue to monitor pt.
[2020-03-17 08:30] VITALS: BP 156/90
[2020-03-17] MEDS: D5W w/KCl 20mEq 1,000 ML IV SCH ×3 (08:49→23:34)
[2020-03-17] MEDS: Zinc Sulfate 220mg ORAL SCH (08:50)
[2020-03-17] MEDS: OLANZapine 10mg tab ORAL SCH (08:50)
[2020-03-17] MEDS: Ascorbic Acid 500mg tab ORAL SCH (08:50)
[2020-03-17] MEDS: Trihexyphenidyl 2mg tab ORAL SCH ×2 (08:51→17:36)
[2020-03-17] MEDS: Multivitamin w/Minerals tab ORAL SCH (08:52)
[2020-03-17] MEDS: Heparin 5000 units/ml inj SUBQ SCH ×2 (08:54→21:00)
--- NOTE | 2020-03-17 11:28 | General Progress Note ---
Assessment/Plan Problem List: (1) COPD (chronic obstructive pulmonary disease) ICD Codes: J44.9 - Chronic obstructive pulmonary disease, unspecified SNOMED: 56761685 Qualifiers: Qualified Codes: J44.9 - Chronic obstructive pulmonary disease, unspecified (2) Pneumonia ICD Codes: J18.9 - Pneumonia, unspecified organism SNOMED: 935153315 Qualifiers: Qualified Codes: J18.9 - Pneumonia, unspecified organism (3) Fever ICD Codes: R50.9 - Fever, unspecified SNOMED: 462562563 Status: stable, progressing Assessment/Plan: o2 hypotonic ivf replace k resp rx iv abx monitor abg gi eval for gt resp status improved Subjective ROS Limited/Unobtainable: No Constitutional: Reports: malaise, weakness HEENT: Reports: no symptoms Cardiovascular: Reports: no symptoms Respiratory: Reports: cough, shortness of breath Gastrointestinal/Abdominal: Reports: difficulty swallowing Genitourinary: Reports: no symptoms Neurologic/Psychiatric: Reports: no symptoms Endocrine: Reports: no symptoms Hematologic/Lymphatic: Reports: anemia Allergies: Coded Allergies: PENICILLINS (Verified Allergy, Unknown, 03/11/20) All Systems: reviewed and negative except above Subjective no events. sodium still high. cxr improved. failed video swallow Objective Last 24 Hour Vital Signs Date Time Temp Pulse Resp B/P (MAP) Pulse Ox O2 Delivery O2 Flow Rate FiO2 03/17/20 10:22 97 Nasal Cannula 2.0 28 03/17/20 08:30 97.5 62 18 156/90 (112) 99 03/17/20 08:00 65 03/17/20 04:00 98.2 69 19 122/86 (98) 95 03/17/20 04:00 62 03/17/20 00:00 68 03/17/20 00:00 98.1 61 20 128/72 (90) 95 03/16/20 21:00 Nasal Cannula 2.0 03/16/20 20:00 67 03/16/20 20:00 98.0 68 20 150/88 (108) 94 03/16/20 16:00 68 03/16/20 16:00 97.9 71 20 127/78 (94) 97 03/16/20 12:00 57 03/16/20 12:00 98.0 69 19 139/80 (99) 97 Intake and Output 03/16/20 03/17/20 19:00 07:00 # Voids 3 2 # Bowel Movements 1 Laboratory Tests 03/17/20 04:30: White Blood Count 8.6, Red Blood Count 4.02L, Hemoglobin 12.7, Hematocrit 38.2, Mean Corpuscular Volume 95, Mean Corpuscular Hemoglobin 31.5H, Mean Corpuscular Hemoglobin Concent 33.1, Red Cell Distribution Width 11.7, Platelet Count 274, Mean Platelet Volume 8.5, Neutrophils (%) (Auto) 66.2, Lymphocytes (%) (Auto) 24.0, Monocytes (%) (Auto) 6.2, Eosinophils (%) (Auto) 2.5, Basophils (%) (Auto ) 1.0, Sodium Level 150H, Potassium Level 3.7, Chloride Level 111H, Carbon Dioxide Level 34H, Anion Gap 5, Blood Urea Nitrogen 5L, Creatinine 0.7, Estimat Glomerular Filtration Rate > 60, Glucose Level 146H, Calcium Level 8.8, Total Bilirubin 0.3, Aspartate Amino Transf (AST/SGOT) 26, Alanine Aminotransferase ( ALT/SGPT) 26, Alkaline Phosphatase 80, Total Protein 6.3L, Albumin 2.1L, Globulin 4.2, Albumin/Globulin Ratio 0.5L Height (Feet): 5 Height (Inches): 5.00 Weight (Pounds): 110 Objective General Appearance: WD/WN, lethargic Neck: non-tender Cardiovascular: normal rate, regular rhythm Respiratory/Chest: chest wall non-tender, lungs clear, normal breath sounds Abdomen: normal bowel sounds, non tender, soft, no organomegaly Edema: no edema noted Arm (L), no edema noted Arm (R), no edema noted Leg (L), no edema noted Leg (R), no edema noted Pedal (L), no edema noted Pedal (R), no edema noted Generalized Neurologic: alert Isaak Ledesma MD Mar 17, 2020 11:28
--- NOTE | 2020-03-17 11:45 | NUR ---
NURSE NOTES: NOTIFIED DOCTOR UOMOTO ABOUT (SB HR 36) EPISODE. NO NEW ORDERS GIVEN
[2020-03-17 12:00] VITALS: BP 112/60
--- NOTE | 2020-03-17 12:57 | Surgery Progress Note ---
Surgery Progress Note Subjective Additional Comments no acute events labs reviewed exam stable Objective Last 24 Hour Vital Signs Date Time Temp Pulse Resp B/P (MAP) Pulse Ox O2 Delivery O2 Flow Rate FiO2 03/17/20 10:22 97 Nasal Cannula 2.0 28 03/17/20 09:00 Nasal Cannula 2.0 03/17/20 08:30 97.5 62 18 156/90 (112) 99 03/17/20 08:00 65 03/17/20 04:00 98.2 69 19 122/86 (98) 95 03/17/20 04:00 62 03/17/20 00:00 68 03/17/20 00:00 98.1 61 20 128/72 (90) 95 03/16/20 21:00 Nasal Cannula 2.0 03/16/20 20:00 67 03/16/20 20:00 98.0 68 20 150/88 (108) 94 03/16/20 16:00 68 03/16/20 16:00 97.9 71 20 127/78 (94) 97 I&O Intake and Output 03/16/20 03/17/20 19:00 07:00 # Voids 3 2 # Bowel Movements 1 Cardiovascular: RSR Respiratory: clear Abdomen: soft, non-tender, present bowel sounds Extremities: no cyanosis Laboratory Tests Test 03/17/20 04:30 White Blood Count 8.6 K/UL (4.8-10.8) Red Blood Count 4.02 M/UL (4.20-5.40) L Hemoglobin 12.7 G/DL (12.0-16.0) Hematocrit 38.2 % (37.0-47.0) Mean Corpuscular Volume 95 FL (80-99) Mean Corpuscular Hemoglobin 31.5 PG (27.0-31.0) H Mean Corpuscular Hemoglobin Concent 33.1 G/DL (32.0-36.0) Red Cell Distribution Width 11.7 % (11.6-14.8) Platelet Count 274 K/UL (150-450) Mean Platelet Volume 8.5 FL (6.5-10.1) Neutrophils (%) (Auto) 66.2 % (45.0-75.0) Lymphocytes (%) (Auto) 24.0 % (20.0-45.0) Monocytes (%) (Auto) 6.2 % (1.0-10.0) Eosinophils (%) (Auto) 2.5 % (0.0-3.0) Basophils (%) (Auto) 1.0 % (0.0-2.0) Sodium Level 150 MMOL/L (136-145) H Potassium Level 3.7 MMOL/L (3.5-5.1) Chloride Level 111 MMOL/L (98-107) H Carbon Dioxide Level 34 MMOL/L (21-32) H Anion Gap 5 mmol/L (5-15) Blood Urea Nitrogen 5 mg/dL (7-18) L Creatinine 0.7 MG/DL (0.55-1.30) Estimat Glomerular Filtration Rate > 60 mL/min (>60) Glucose Level 146 MG/DL (74-106) H Calcium Level 8.8 MG/DL (8.5-10.1) Total Bilirubin 0.3 MG/DL (0.2-1.0) Aspartate Amino Transf (AST/SGOT) 26 U/L (15-37) Alanine Aminotransferase (ALT/SGPT) 26 U/L (12-78) Alkaline Phosphatase 80 U/L (46-116) Total Protein 6.3 G/DL (6.4-8.2) L Albumin 2.1 G/DL (3.4-5.0) L Globulin 4.2 g/dL Albumin/Globulin Ratio 0.5 (1.0-2.7) L Plan Problems: (1) Malnutrition Assessment & Plan: DAILY ESTIMATED NEEDS: Needs based on Wound/ 56kg 25-35 kcals/kg 6908-2371 total kcals 1.25-1.8 g protein/kg 70-100 g total protein 25-30 mL/kg 7360-8589 total fluid mLs NUTRITION DIAGNOSIS: * Swallowing difficulty R/T dysphagia as evidendced by HIGH MAN w/ rec for NPO, pending MBSS. * Increased kcal/prot/micronutrients needs R/T wound healing as evidenced by pt admitted w/ multiple wounds including full thickness wound @ sacrum, DTPI wound @ L Gluteal cheek, and non-Blanchable erythema @ BL heels. CURRENT DIET:NPO PO DIET RECOMMENDATIONS: REGULAR, texture per HIGH MAN + Ensure Enlive TID ADDITIONAL RECOMMENDATIONS: * Per SNF: HT=66" HM=898kfi (03/07/20) * Wound healing: continue MVI, Vit C, and ZnSO4 * Monitor for possible diet initiation- pending MBSS -> consult RD for TF rec if indicated * Monitor lytes, replete as needed THIS 60 Y.O.M. WAS ADMITTED WITH ACUTE ISSUES - FEVER, HYPOXIC WITH LOW 02 SATS ON NON-REBREATHER, RESP RATE 18 BPM INITIALLY PER MEDICAL RECORD. PER RN, THE PATIENT HAD A RAPID RESPOSE THIS MORNING (DESAT TO 90S AND RAPID RESP RATE). H/O COPD, CARDIAC DZ, HYPOTHYROIDISM, HTN, ALLERGIC RHINITIS, SCHIZOPHRENIA (ON OLANZAPINE AT SNF), BASELINE NONVERBAL. PER POLST FULL TX BUT NO INFORMATION REGARDING TUBE FEEDING PREFERENCES. AT SNF ON A REGULAR DIET TEXTURE AND THIN LIQUIDS WITH PROSTAT SF DRINK WITH MEALS. NOW ON A REGULAR TEXTURE DIET AND THIN LIQUIDS BUT DID NOT TAKE ANY PO. PER LAURIE EARLY, THE PT UNABLE TO TAKE LARGE PILLS BUT APPEARED TO TOLERATE CRUSHED MEDS WITH APPLESAUCE W/O OVERT ASPIRATION. PATIENT SEEN WITH RTFUNMI. PER RT RESP RATE 22 BPM AND NOT ABLE TO ongoing unintelligible confabulations. Patient did request a sandwich, however, not appropriate for regular texture at this time. VITALS ON 2 L NASAL CANNULA: HR: 73; RR: 20; SP02: 95% Patient's oral hygiene is improving, ongoing poor speech intelligibility which appears to be more due to poor articulation precision/oral motor coordination versus 2/2 dry mouth. CXR on 03/14/20: Findings: Interim considerable improvement of previously demonstrated left lower lobe infiltrate. There is a residual disease in the retrocardiac region as well as generalized reticular interstitial opacities throughout the left mid and lower lung. There is questionably a 3 cm spiculated opacity projected over the apex. Minimal right mid and lower lung reticular opacities are also demonstrated. There is some right midlung atelectasis versus thickening of the minor fissure. The heart size is normal. The pleural spaces are clear Impression: Considerable improvement the persistence of previously demonstrated left mid and lower lung infiltrates, since prior study of 03/11/2020. HIGH MAN plans to continue to f/u and monitor Patients readiness for PO trials for diet texture upgrade. RN aware of recommendations, plan, and aspiration precautions sign posted above Patients HOB. RECOMMENDATIONS: 1. Continue Moist Puree with [place] Thick Liquids Diet via 1 to 1 careful handfeeding while implementing posted aspiration precautions - RD recommendations appreciated for diet texture/type 2. Patient requires oral hygiene BID + lip moisturizer. (2) Decubitus skin ulcer Assessment & Plan: Pt presented on admission with multiple pressure injuries. Full thickness Pressure injury Sacrococcygeal area. (L)4cm x (W)2.5cm. Base of wound is fatou with scattered slough ,which was easily removed with gentle friction. Wound is now faotu with 25% soft necrosis at distal base of wound. Small amt sanguineous exudate noted.No odor noted. Periwound erythematous and denuded. Two additional Pressure Injuries noted to R gluteal cheek.(Proximal) Base of wound is purple and indurated(L)3cm x (W)1.5cm. Surrounding erythematous and denuded skin (Distal) R gluteus(L)1.4cm x (W)0.6cm. Base of wound is purple, indurated with surrounding erythematous and denuded skin. DTPI L Gluteal cheek (L)1.5cm x (W)1.3cm. Base of wound is indurated, purple with surrounding non-blanching erythema. Additional scattered areas that are maroon in colour noted to L gluteal cheek. Lateral L Heel boggy with non-blanching erythema with delineated margins. (L) 4cm x (W)4.5cm. Lateral R Heel Boggy with non-Blanchable erythema with delineated margins(L) 2.5cm x (W)2.5cm. Tx.Plan: Cleanse Sacrococcygeal area with saline. Apply TheraHoney , Apply Moisture Barrier Paste to Sacrum, R and L Buttocks. Cover entire Area with Optifoam drsgs. Change every 3 days and prn. Apply Moisture Barrier Paste to R and L Buttocks . Cover with Optifoam drsgs. Changee very 3 days and prn. Apply Cavilon Skin Barrier to R and L Trochanteric areas. Cover with Optifoam drsg. Change every 7 days and prn. Apply Cavilon Skin Barrier to R and L Heels. Cover each heel with Optifoam drsg. Change every 7 days and prn. Reposition at least every 2hours or as tolerated. Off-load heels with Pillow. APM/ERIK Mattress. (3) Pneumonia Assessment & Plan: Lungs: There is mild left lower lobe infiltrate consistent with pneumonia. Pleural space: Unremarkable. No pneumothorax. Heart: The heart size is at the upper limits of normal. Mediastinum: Unremarkable. Bones/joints: Unremarkable. IMPRESSION: There is mild left lower lobe infiltrate consistent with pneumonia. (4) COPD (chronic obstructive pulmonary disease) (5) Fever Eddie Perez Mar 17, 2020 12:57
--- NOTE | 2020-03-17 13:04 | NUR ---
NURSE NOTES: PER DOCTOR MEENA, INSERT NGT , jevity 1.2 GOAL 30ML/HR FLUSH 100ml q 6hrs.
[2020-03-17] MEDS: Piperacillin/Tazobactam 3.375 GM in NS 110 ML IVPB SCH ×2 (13:38→23:10)
[2020-03-17 16:00] VITALS: BP 142/99
--- NOTE | 2020-03-17 19:36 | Diagnostic Imaging Report ---
EXAM: XR Abdomen, 2 Views CLINICAL HISTORY: NGT TECHNIQUE: Frontal view of the abdomen/pelvis with upright view of the abdomen. COMPARISON: Chest radiograph dated 03/11/2020 FINDINGS: Intraperitoneal space: No free air. Gastrointestinal tract: Well-formed stool is noted within the bowel. Mildly prominent air-filled bowel overlying the left upper quadrant of the abdomen. Bones/joints: Degenerative changes of the visualized spine. Tubes, lines and devices: An enteric tube is noted coursing over the expected region of the esophagus with side port and tip terminating below the level of the diaphragm overlying the left upper quadrant of the abdomen. IMPRESSION: 1. Appropriately positioned enteric tube. 2. Colonic stool burden.
--- NOTE | 2020-03-17 19:49 | NUR ---
HAND-OFF: Report given to Keyes/Rn, pt in stable condition.
[2020-03-17 20:00] VITALS: BP 152/99
[2020-03-18] VITALS (15 sets, daily range): BP systolic 114–157; BP diastolic 62–97
[2020-03-18] MEDS: Vancomycin 750mg/NS 275ml IVPB SCH ×4 (02:35→09:27)
[2020-03-18] MEDS: Albuterol 90mcg Inhaler 8gm INH SCH ×7 (03:00→23:02)
[2020-03-18] MEDS: Levothyroxine 125mcg tab ORAL SCH (05:39)
[2020-03-18] MEDS: Piperacillin/Tazobactam 3.375 GM in NS 110 ML IVPB SCH ×3 (05:39→21:01)
--- NOTE | 2020-03-18 07:45 | NUR ---
NURSE NOTES: pt in bed resting, AOx1. Pt does not complain of pain. Continue color television console monitor no signs of cardiac or respiratory distress at this time. Pt on NGT feeding running at 15ml/hr pt tolerating it well. Pt turned at this time. Iv is infiltrated. Bed locked and in lowest position call light within reach, side rail up x2 for safety. Pt has multiple sacral wounds. Will continue to monitor labs and pt.
--- NOTE | 2020-03-18 09:09 | Surgery Progress Note ---
Surgery Progress Note Subjective Additional Comments afebrile, HD stable NG placed, KUB positioned well started tube feeds and tolerating so far labs noted Objective Last 24 Hour Vital Signs Date Time Temp Pulse Resp B/P (MAP) Pulse Ox O2 Delivery O2 Flow Rate FiO2 03/18/20 08:31 96.7 50 20 140/74 (96) 96 03/18/20 07:43 98 Nasal Cannula 2.0 28 03/18/20 04:00 37 03/18/20 04:00 96.3 67 19 140/93 (109) 98 03/18/20 00:00 51 03/18/20 00:00 96.4 58 19 138/85 (102) 95 03/17/20 21:00 Nasal Cannula 2.0 03/17/20 20:00 56 03/17/20 20:00 97.5 55 20 152/99 (116) 97 03/17/20 19:31 85 20 97 Nasal Cannula 2.0 28 03/17/20 19:31 97 Nasal Cannula 2.0 28 03/17/20 16:00 75 03/17/20 16:00 97.2 56 19 142/99 (113) 95 03/17/20 12:00 36 03/17/20 12:00 97.5 44 20 112/60 (77) 94 03/17/20 10:22 97 Nasal Cannula 2.0 28 I&O Intake and Output 03/17/20 03/18/20 19:00 07:00 Intake Total 195 ml Output Total 4 ml 700 ml Balance -4 ml -505 ml Free Water 180 ml Tube Feeding 15 ml Output Urine Total 4 ml 700 ml # Voids 3 # Bowel Movements 1 1 Dressing: dry Wound: clean Cardiovascular: RSR Respiratory: clear Abdomen: soft, non-tender, present bowel sounds, non-distended Extremities: no edema, no tenderness, no cyanosis Laboratory Tests Test 03/17/20 16:05 03/18/20 06:00 Vancomycin Level Trough 13.5 ug/mL (5.0-12.0) H Sodium Level Pending Potassium Level Pending Chloride Level Pending Carbon Dioxide Level Pending Blood Urea Nitrogen Pending Creatinine Pending Estimat Glomerular Filtration Rate Pending Glucose Level Pending Calcium Level Pending Total Bilirubin Pending Aspartate Amino Transf (AST/SGOT) Pending Alanine Aminotransferase (ALT/SGPT) Pending Alkaline Phosphatase Pending Total Protein Pending Albumin Pending Globulin Pending Plan Problems: (1) Malnutrition Assessment & Plan: not eating enough TF started adv as tolerated bowel regimen DAILY ESTIMATED NEEDS: Needs based on Wound/ 56kg 25-35 kcals/kg 4668-5801 total kcals 1.25-1.8 g protein/kg 70-100 g total protein 25-30 mL/kg 5902-7289 total fluid mLs NUTRITION DIAGNOSIS: * Swallowing difficulty R/T dysphagia as evidendced by BI ANALYST w/ rec for NPO, pending MBSS. * Increased kcal/prot/micronutrients needs R/T wound healing as evidenced by pt admitted w/ multiple wounds including full thickness wound @ sacrum, DTPI wound @ L Gluteal cheek, and non-Blanchable erythema @ BL heels. CURRENT DIET:NPO PO DIET RECOMMENDATIONS: REGULAR, texture per BI ANALYST + Ensure Enlive TID ADDITIONAL RECOMMENDATIONS: * Per SNF: HT=66" GB=557tco (03/07/20) * Wound healing: continue MVI, Vit C, and ZnSO4 * Monitor for possible diet initiation- pending MBSS -> consult RD for TF rec if indicated * Monitor lytes, replete as needed THIS 60 Y.O.M. WAS ADMITTED WITH ACUTE ISSUES - FEVER, HYPOXIC WITH LOW 02 SATS ON NON-REBREATHER, RESP RATE 18 BPM INITIALLY PER MEDICAL RECORD. PER RN, THE PATIENT HAD A RAPID RESPOSE THIS MORNING (DESAT TO 90S AND RAPID RESP RATE). H/O COPD, CARDIAC DZ, HYPOTHYROIDISM, HTN, ALLERGIC RHINITIS, SCHIZOPHRENIA (ON OLANZAPINE AT SNF), BASELINE NONVERBAL. PER POLST FULL TX BUT NO INFORMATION REGARDING TUBE FEEDING PREFERENCES. AT SNF ON A REGULAR DIET TEXTURE AND THIN LIQUIDS WITH PROSTAT SF DRINK WITH MEALS. NOW ON A REGULAR TEXTURE DIET AND THIN LIQUIDS BUT DID NOT TAKE ANY PO. PER LAURIE EARLY, THE PT UNABLE TO TAKE LARGE PILLS BUT APPEARED TO TOLERATE CRUSHED MEDS WITH APPLESAUCE W/O OVERT ASPIRATION. PATIENT SEEN WITH RTFUNMI. PER RT RESP RATE 22 BPM AND NOT ABLE TO ongoing unintelligible confabulations. Patient did request a sandwich, however, not appropriate for regular texture at this time. VITALS ON 2 L NASAL CANNULA: HR: 73; RR: 20; SP02: 95% Patient's oral hygiene is improving, ongoing poor speech intelligibility which appears to be more due to poor articulation precision/oral motor coordination versus 2/2 dry mouth. CXR on 03/14/20: Findings: Interim considerable improvement of previously demonstrated left lower lobe infiltrate. There is a residual disease in the retrocardiac region as well as generalized reticular interstitial opacities throughout the left mid and lower lung. There is questionably a 3 cm spiculated opacity projected over the apex. Minimal right mid and lower lung reticular opacities are also demonstrated. There is some right midlung atelectasis versus thickening of the minor fissure. The heart size is normal. The pleural spaces are clear Impression: Considerable improvement the persistence of previously demonstrated left mid and lower lung infiltrates, since prior study of 03/11/2020. BI ANALYST plans to continue to f/u and monitor Patients readiness for PO trials for diet texture upgrade. RN aware of recommendations, plan, and aspiration precautions sign posted above Patients HOB. RECOMMENDATIONS: 1. Continue Moist Puree with [place] Thick Liquids Diet via 1 to 1 careful handfeeding while implementing posted aspiration precautions - RD recommendations appreciated for diet texture/type 2. Patient requires oral hygiene BID + lip moisturizer. (2) Decubitus skin ulcer Assessment & Plan: Pt presented on admission with multiple pressure injuries. Full thickness Pressure injury Sacrococcygeal area. (L)4cm x (W)2.5cm. Base of wound is fatou with scattered slough ,which was easily removed with gentle friction. Wound is now fatou with 25% soft necrosis at distal base of wound. Small amt sanguineous exudate noted.No odor noted. Periwound erythematous and denuded. Two additional Pressure Injuries noted to R gluteal cheek.(Proximal) Base of wound is purple and indurated(L)3cm x (W)1.5cm. Surrounding erythematous and denuded skin (Distal) R gluteus(L)1.4cm x (W)0.6cm. Base of wound is purple, indurated with surrounding erythematous and denuded skin. DTPI L Gluteal cheek (L)1.5cm x (W)1.3cm. Base of wound is indurated, purple with surrounding non-blanching erythema. Additional scattered areas that are maroon in colour noted to L gluteal cheek. Lateral L Heel boggy with non-blanching erythema with delineated margins. (L) 4cm x (W)4.5cm. Lateral R Heel Boggy with non-Blanchable erythema with delineated margins(L) 2.5cm x (W)2.5cm. Tx.Plan: Cleanse Sacrococcygeal area with saline. Apply TheraHoney , Apply Moisture Barrier Paste to Sacrum, R and L Buttocks. Cover entire Area with Optifoam drsgs. Change every 3 days and prn. Apply Moisture Barrier Paste to R and L Buttocks . Cover with Optifoam drsgs. Changee very 3 days and prn. Apply Cavilon Skin Barrier to R and L Trochanteric areas. Cover with Optifoam drsg. Change every 7 days and prn. Apply Cavilon Skin Barrier to R and L Heels. Cover each heel with Optifoam drsg. Change every 7 days and prn. Reposition at least every 2hours or as tolerated. Off-load heels with Pillow. APM/ERIK Mattress. (3) Pneumonia Assessment & Plan: Lungs: There is mild left lower lobe infiltrate consistent with pneumonia. Pleural space: Unremarkable. No pneumothorax. Heart: The heart size is at the upper limits of normal. Mediastinum: Unremarkable. Bones/joints: Unremarkable. IMPRESSION: There is mild left lower lobe infiltrate consistent with pneumonia. (4) COPD (chronic obstructive pulmonary disease) (5) Fever Eddie Perez Mar 18, 2020 09:09
[2020-03-18] MEDS ORDERED: Milk of Magnesia 30ml Ud ORAL SCH (09:15)
[2020-03-18] MEDS ORDERED: Milk of Magnesia 30ml Ud ORAL PRN ×2 (09:15→14:00)
[2020-03-18] MEDS: Zinc Sulfate 220mg ORAL SCH (09:28)
[2020-03-18] MEDS: OLANZapine 10mg tab ORAL SCH (09:28)
[2020-03-18] MEDS: Multivitamin w/Minerals tab ORAL SCH (09:28)
[2020-03-18] MEDS: Trihexyphenidyl 2mg tab ORAL SCH ×2 (09:29→17:06)
[2020-03-18] MEDS: Ascorbic Acid 500mg tab ORAL SCH (09:29)
[2020-03-18] MEDS: Heparin 5000 units/ml inj SUBQ SCH ×2 (09:30→20:49)
[2020-03-18 09:37] LABS: ALANINE AMINOTRANSFERASE 32 U/L (12-78); ALBUMIN/GLOBULIN RATIO 0.4 (1.0-2.7); ALKALINE PHOSPHATASE 89 U/L (46-116); ANION GAP 9 mmol/L (5-15); ASPARTATE AMINO TRANSFERASE 36 U/L (15-37); BILIRUBIN,TOTAL 0.2 MG/DL (0.2-1.0); BLOOD UREA NITROGEN 3 mg/dL (7-18); CALCIUM 8.8 MG/DL (8.5-10.1); CARBON DIOXIDE 27 MMOL/L (21-32); CHLORIDE 102 MMOL/L (98-107); CREATININE 0.4 MG/DL (0.55-1.30); POTASSIUM 5.1 MMOL/L (3.5-5.1); SODIUM 138 MMOL/L (136-145)
--- NOTE | 2020-03-18 10:09 | General Progress Note ---
Assessment/Plan Problem List: (1) COPD (chronic obstructive pulmonary disease) ICD Codes: J44.9 - Chronic obstructive pulmonary disease, unspecified SNOMED: [id number] Qualifiers: Qualified Codes: J44.9 - Chronic obstructive pulmonary disease, unspecified (2) Pneumonia ICD Codes: J18.9 - Pneumonia, unspecified organism SNOMED: 767687014 Qualifiers: Qualified Codes: J18.9 - Pneumonia, unspecified organism (3) Fever ICD Codes: R50.9 - Fever, unspecified SNOMED: 764492006 Status: stable, progressing Assessment/Plan: o2 hypotonic ivf monitor labs replace lytes a eeded resp rx iv abx monitor abg decrease zyprexa check abg chek tsh gi eval for gt resp status improved Subjective ROS Limited/Unobtainable: Yes Constitutional: Reports: malaise, weakness HEENT: Reports: no symptoms Cardiovascular: Reports: no symptoms Respiratory: Reports: cough Gastrointestinal/Abdominal: Reports: difficulty swallowing Genitourinary: Reports: no symptoms Neurologic/Psychiatric: Reports: emotional problems, pre-existing deficit Endocrine: Reports: no symptoms Hematologic/Lymphatic: Reports: no symptoms Allergies: Coded Allergies: PENICILLINS (Verified Allergy, Unknown, 03/11/20) All Systems: reviewed and negative except above Subjective ngt placed. on feeds. +bradycardia- ?not getting synthroid. wbc improving. on ivf. sleepy Objective Last 24 Hour Vital Signs Date Time Temp Pulse Resp B/P (MAP) Pulse Ox O2 Delivery O2 Flow Rate FiO2 03/18/20 08:31 96.7 50 20 140/74 (96) 96 03/18/20 07:43 98 Nasal Cannula 2.0 28 03/18/20 04:00 37 03/18/20 04:00 96.3 67 19 140/93 (109) 98 03/18/20 00:00 51 03/18/20 00:00 96.4 58 19 138/85 (102) 95 03/17/20 21:00 Nasal Cannula 2.0 03/17/20 20:00 56 03/17/20 20:00 97.5 55 20 152/99 (116) 97 03/17/20 19:31 85 20 97 Nasal Cannula 2.0 28 03/17/20 19:31 97 Nasal Cannula 2.0 28 03/17/20 16:00 75 03/17/20 16:00 97.2 56 19 142/99 (113) 95 03/17/20 12:00 36 03/17/20 12:00 97.5 44 20 112/60 (77) 94 03/17/20 10:22 97 Nasal Cannula 2.0 28 Intake and Output 03/17/20 03/18/20 19:00 07:00 Intake Total 195 ml Output Total 4 ml 700 ml Balance -4 ml -505 ml Free Water 180 ml Tube Feeding 15 ml Output Urine Total 4 ml 700 ml # Voids 3 # Bowel Movements 1 1 Laboratory Tests 03/17/20 16:05: Vancomycin Level Trough 13.5H 03/18/20 06:00: Sodium Level 138, Potassium Level 5.1, Chloride Level 102, Carbon Dioxide Level 27, Anion Gap 9, Blood Urea Nitrogen 3L, Creatinine 0.4L, Estimat Glomerular Filtration Rate > 60, Glucose Level 126H, Calcium Level 8.8, Total Bilirubin 0.2 , Aspartate Amino Transf (AST/SGOT) 36, Alanine Aminotransferase (ALT/SGPT) 32, Alkaline Phosphatase 89, Total Protein 6.8, Albumin 2.0L, Globulin 4.8, Albumin/ Globulin Ratio 0.4L Height (Feet): 5 Height (Inches): 5.00 Weight (Pounds): 110 Objective General Appearance: WD/WN, lethargic Neck: non-tender Cardiovascular: normal rate, regular rhythm Respiratory/Chest: chest wall non-tender, lungs clear, normal breath sounds Abdomen: normal bowel sounds, non tender, soft, no organomegaly Edema: no edema noted Arm (L), no edema noted Arm (R), no edema noted Leg (L), no edema noted Leg (R), no edema noted Pedal (L), no edema noted Pedal (R), no edema noted Generalized Neurologic: alert Isaak Ledesma MD Mar 18, 2020 10:09
[2020-03-18 11:16] LABS: BASOPHILS % (AUTO) 0.7 % (0.0-2.0); EOSINOPHILS % (AUTO) 1.1 % (0.0-3.0); HEMATOCRIT 39.5 % (37.0-47.0); HEMOGLOBIN 12.4 G/DL (12.0-16.0); LYMPHOCYTES % (AUTO) 13.3 % (20.0-45.0); MEAN CORPUSCULAR VOLUME 97 FL (80-99); MONOCYTES % (AUTO) 4.9 % (1.0-10.0); PLATELET COUNT 343 K/UL (150-450); RED BLOOD COUNT 4.07 M/UL (4.20-5.40); RED CELL DISTRIBUTION WIDTH 13.3 % (11.6-14.8); WHITE BLOOD COUNT 12.3 K/UL (4.8-10.8)
--- NOTE | 2020-03-18 11:28 | NUR ---
NURSE NOTES: notified doctor Husam about Pt's, latest cardiac strip (SB 36 hr w/ Junctional rythm). V/s bp 134/89, O2 81 on 4L, Respiration 20. Called [employer] wiring technician, and pt was put on ventury mask 02 6L @ 35%. Doctor issued the following orders @ 1131 Transfer pt ICU, Atropine 0.5 IV once, put pt on BIpap and put pt on pacing pads. 1228 Notified doctor about ABG results.
[2020-03-18 11:55] LABS: ALANINE AMINOTRANSFERASE 35 U/L (12-78); ALBUMIN 2.1 G/DL (3.4-5.0); ALBUMIN/GLOBULIN RATIO 0.5 (1.0-2.7); ALKALINE PHOSPHATASE 85 U/L (46-116); ANION GAP 7 mmol/L (5-15); ASPARTATE AMINO TRANSFERASE 28 U/L (15-37); BILIRUBIN,TOTAL 0.2 MG/DL (0.2-1.0); BLOOD UREA NITROGEN 4 mg/dL (7-18); CALCIUM 8.9 MG/DL (8.5-10.1); CARBON DIOXIDE 33 MMOL/L (21-32); CHLORIDE 102 MMOL/L (98-107); CREATININE 0.5 MG/DL (0.55-1.30); POTASSIUM 3.8 MMOL/L (3.5-5.1); SODIUM 141 MMOL/L (136-145)
[2020-03-18] MEDS ORDERED: Atropine Inj 1mg/10ml Syr IVP ONE (12:00)
[2020-03-18] MEDS: D5W w/KCl 20mEq 1,000 ML IV SCH ×2 (12:18→13:50)
--- NOTE | 2020-03-18 12:29 | NUR ---
RESPIRATORY NOTE: ABG done and reported to SHARATH Burch and SHARATH Jose in ICU. Pt transferred to ICU. Bipap setup and standby at bedside, alarms are set and audible, Bipap is plugged into the red outlet, ambu bag is at bedside. Pt is awake, alert, on 6L 35%FiO2 venturi mask. Increased FiO2 to 8L 40%FiO2 post ABG result. Pt is not on Bipap at this time, PCO2 is 45.6 mmHg. SHARATH Jose aware, and will call Dr. Ledesma to confirm about the frequency of Bipap. Will leave pt on venturi mask 8L 40%FiO2 for now. Vital signs: HR 90bpm, RR 21bpm, saturates at 96%, no SOB or resp distress noted at this time. Will continue to monitor.
--- NOTE | 2020-03-18 13:00 | NUR ---
NURSE NOTES: Received patient from telemetry via hospital wheeled into ICU bed G by 2 RN, ELECTRIC STOP INSTALLER, and charge nurse. Placed patient on continuous cafeteria monitor, shows sinus bradycardia with HR of 37. Atropine IVP given as ordered. HR went up to low 90s. BP 141/93, patient is afebrile 97.8F axillary. Patient is awake, opens eyes to verbal and responds to painful stimuli, oriented to name. Pupils are sluggish bilaterally. Pulses are palpable, bounding on radial and dorsalis pedis. Patient is receiving oxygen via Venturi Mask 6L with Fio2 35%, patient is saturating 97% at this time. No respiratory distress noted. Received bedside report from SHARATH Burch. Patient has NGT on left nares, TF on hold per SHARATH Burch since 1 hour ago. Skin alterations noted, photos taken per policy, will upload. Patient received with peripheral IV on left hand 24g, established 20g IV on the right AC. Resumed IV fluids D5W with 20mEq of KCL at 100ml/hr and Vancomycin. Contacted Dr Ledesma for orders, notified and made aware of ABG results, received new orders - read back and verified, noted, entered and will carry out. Bed is locked, alarmed, and in lowest position, side rails up x3, and call light left within reach. Will continue plan of care and will continue to monitor patient.
--- NOTE | 2020-03-18 14:10 | NUR ---
NURSE NOTES: Patient observed resting in bed, eyes closed, appears to be sleeping. Still opens eyes spontaneously to verbal stimuli. VSS, HR 58bmp on the informatica developer. Patient remains on Venturi mask, no respiratory distress noted. Clarified orders with Dr Ledesma; ordered to keep Synthroid at 50mcg IVP daily. Called pharmacy for Synthroid due now, per pharmacist they are still making it. TF infusing on the left nares Jevity 1.2 at 15ml/hr, will increase to goal as tolerated. HOB placed elevated for aspiration precautions. Placed patient on Purewick. Will continue to monitor patient.
[2020-03-18] MEDS ORDERED: Varibar Honey 250ml MC PRN (14:30)
[2020-03-18] MEDS ORDERED: Varibar Pudding 230ml MC PRN (14:30)
[2020-03-18] MEDS ORDERED: Varibar Nectar 240ml MC PRN (14:30)
--- NOTE | 2020-03-18 14:53 | NUR ---
NURSE NOTES: pt transported to ICU in sable condition. Pt on quality assurance monitor SB [id number] SR. On 6L oxygen 35% sating -. All belonging and medical chart was transported with pt. Addendum: 03/18/20 at 1520 by Kiersten Vega RN NURSE NOTES: pt transported to ICU in sable condition. Pt on quality assurance monitor SB 36. On 6L oxygen 35% sating -94. All belonging and medical chart were transported with pt. IV site dry and intact. Pt on NGT tube feeding at 15ml/hr, feeding is currently on hold because pt was nauseas. Feeding goal is 30ml/ hr. pt is on a purewick. Wound was cleaned and dressing was changed at 0930.
--- NOTE | 2020-03-18 16:00 | NUR ---
NURSE NOTES: Patient remains in bed, appears to be sleeping at this time. Remains on Venturi Mask 6L with FiO2 35%, patient is saturating 100% at this time. Patient is afebrile. No s/s of distress/pain. Will continue to monitor patient.
[2020-03-18] MEDS: Atropine Inj 1mg/10ml Syr IVP PRN ×2 (16:32→21:52)
--- NOTE | 2020-03-18 16:35 | NUR ---
NURSE NOTES: Patient's HR went down to 32, Atropine 1mg IVP given. HR went up to 102. Will continue to monitor.
[2020-03-18] MEDS: Vancomycin 750 MG in NS 275 ML IVPB SCH (17:06)
--- NOTE | 2020-03-18 17:50 | NUR ---
NURSE NOTES: Clarification of order from Dr Ledesma: no need to place patient on pacer pads. Notified and made aware HR is on 70's-80's at this time.
--- NOTE | 2020-03-18 18:00 | NUR ---
NURSE NOTES: Patient remains on Venturi mask, no respiratory distress noted. NGT on left nares intact, infusing Jevity 1.2 at 15ml/hr. HOB elevated. Right AC PIV intact, patent, asymptomatic, infusing D5W with 20mEq KCL at 100ml/hr. Purewick in place, no BM noted; left patient clean and dry. Safety precautions in place. Will continue to monitor.
--- NOTE | 2020-03-18 19:00 | NUR ---
HAND-OFF: Report given to SHARATH Roque. Endorsed plan of care.
--- NOTE | 2020-03-18 19:01 | NUR ---
NURSE NOTES: Received patient from SHARATH Jose. Patient is aaox1, vss, no acute distress, and on fruit harvester. Patient has NG-tube on her left nares running Jevity 1.2 at 15cc/hr. Purewich is in place and patent with no skin irritation noted. Patient has a right AC 20g and a left hand 24g with no signs of infection. Skin issues noted with pictures taken. Bed is in lowest position, locked, call light in reach, and side rails up x 3. Will continue to monitor.
--- NOTE | 2020-03-18 21:53 | NUR ---
NURSE NOTES: Observed heart rate of 33. Charge nurse notified and medication given as ordered. Patient responded well to treatment. Heart rate after tx is 98.
--- NOTE | 2020-03-18 23:10 | NUR ---
NURSE NOTES: Patient's BP 157/97. Albuterol administered prior to BP check. Will monitor BP. If elevated BP continues I will inform .
[2020-03-19] VITALS (25 sets, daily range): BP systolic 120–189; BP diastolic 77–119
[2020-03-19] MEDS: D5W w/KCl 20mEq 1,000 ML IV SCH ×3 (00:03→20:39)
[2020-03-19] MEDS: Vancomycin 750 MG in NS 275 ML IVPB SCH ×3 (00:03→17:31)
[2020-03-19] MEDS: Atropine Inj 1mg/10ml Syr IVP PRN (01:03)
[2020-03-19] MEDS: Albuterol 90mcg Inhaler 8gm INH SCH ×6 (03:14→23:00)
[2020-03-19] MEDS: Piperacillin/Tazobactam 3.375 GM in NS 110 ML IVPB SCH ×3 (05:28→22:09)
[2020-03-19 06:28] LABS: BASOPHILS % (AUTO) 1.2 % (0.0-2.0); EOSINOPHILS % (AUTO) 1.4 % (0.0-3.0); HEMATOCRIT 43.6 % (37.0-47.0); HEMOGLOBIN 13.8 G/DL (12.0-16.0); LYMPHOCYTES % (AUTO) 12.2 % (20.0-45.0); MEAN CORPUSCULAR VOLUME 97 FL (80-99); MONOCYTES % (AUTO) 4.2 % (1.0-10.0); NEUTROPHILS % (AUTO) 80.9 % (45.0-75.0); PLATELET COUNT 374 K/UL (150-450); RED BLOOD COUNT 4.49 M/UL (4.20-5.40); RED CELL DISTRIBUTION WIDTH 12.7 % (11.6-14.8); WHITE BLOOD COUNT 10.3 K/UL (4.8-10.8)
[2020-03-19] MEDS ORDERED: Levothyroxine 125mcg tab ORAL SCH (06:30)
--- NOTE | 2020-03-19 06:52 | NUR ---
NURSE NOTES: Patient was cleaned and bandages changed. Around 0500 the patient's heart rate dropped below 40 and medication was given as ordered. Patient responded well to treatment. Patient tolerated the bed bath moderately as patient was observed being agitated at the time. Patient follows command although delayed. Will continue to monitor.
--- NOTE | 2020-03-19 07:22 | NUR ---
HAND-OFF: Report given to SHARATH Martinez.
[2020-03-19 07:34] LABS: ALANINE AMINOTRANSFERASE 40 U/L (12-78); ALBUMIN 2.4 G/DL (3.4-5.0); ALBUMIN/GLOBULIN RATIO 0.5 (1.0-2.7); ALKALINE PHOSPHATASE 96 U/L (46-116); ANION GAP 7 mmol/L (5-15); ASPARTATE AMINO TRANSFERASE 32 U/L (15-37); BILIRUBIN,TOTAL 0.2 MG/DL (0.2-1.0); BLOOD UREA NITROGEN 3 mg/dL (7-18); CALCIUM 9.5 MG/DL (8.5-10.1); CARBON DIOXIDE 33 MMOL/L (21-32); CHLORIDE 101 MMOL/L (98-107); CREATININE 0.6 MG/DL (0.55-1.30); POTASSIUM 3.7 MMOL/L (3.5-5.1); SODIUM 141 MMOL/L (136-145)
--- NOTE | 2020-03-19 07:35 | NUR ---
NURSE NOTES: Dr. Ledesma updated at the bedside of patient mental status, she is able to make sounds with delay and repeats words, she makes simple three to four word sentences. she is awake and follows simple commands. Currently she is on venti mask at 35% FIO2. tube feeding is running at 30ml/hr Jevity 1.2 through NG-Tube, D5W+20mEq at 100ml/hr.
[2020-03-19] MEDS: Zinc Sulfate 220mg ORAL SCH (09:15)
[2020-03-19] MEDS ORDERED: Fleet's Enema 133ml RECTAL SCH (09:15)
[2020-03-19] MEDS: Trihexyphenidyl 2mg tab ORAL SCH ×2 (09:15→17:32)
[2020-03-19] MEDS: Ascorbic Acid 500mg tab ORAL SCH (09:15)
[2020-03-19] MEDS: Multivitamin w/Minerals tab ORAL SCH (09:15)
[2020-03-19] MEDS: Heparin 5000 units/ml inj SUBQ SCH ×2 (09:17→20:45)
--- NOTE | 2020-03-19 09:44 | NUR ---
RD ASSESSMENT & RECOMMENDATIONS SEE CARE ACTIVITY FOR COMPLETE ASSESSMENT DAILY ESTIMATED NEEDS: Needs based on Wound, pulmonary / 56kg 25-35 kcals/kg 8323-5964 total kcals 1.25-1.8 g protein/kg 70-100 g total protein 25-30 mL/kg 3875-6701 total fluid mLs NUTRITION DIAGNOSIS: * Swallowing difficulty R/T dysphagia as evidenced by HAY RAKE OPERATOR w/ rec for NPO, now on NGT feeds. * Increased kcal/prot/micronutrients needs R/T wound healing as evidenced by pt admitted w/ multiple wounds including full thickness wound @ sacrum, TPI wound @ L Gluteal cheek, and non-Blanchable erythema @ BL heels. CURRENT TF:Jevity 1.2 @30ml/hr ENTERAL NUTRITION RECOMMENDATIONS: JEVITY 1.2 goal of 55ml/hr x24 hrs to provide 1320ml, 1584 kcal, 73g pro, 1065ml free H2O - rec to INCREASE current TF as tolerated to goal of 55ml/hr to better meet est needs. - flush per MD, HOB over 30 degrees ADDITIONAL RECOMMENDATIONS: * Per SNF: HT=66" OU=816azp (03/07/20) * Wound healing: continue MVI, Vit C, and ZnSO4 * VIA NGT-> add TONI BID for wound care TF recs as above * Monitor lytes, replete as needed -> Monitor BG, need for NISS w/ TF's
[2020-03-19] MEDS: Lactulose 20gm/30ml UDC ORAL SCH ×3 (09:45→17:32)
--- NOTE | 2020-03-19 09:47 | Diagnostic Imaging Report ---
EXAM: XRAY Abdomen 1v HISTORY: Abdominal distention COMPARISON: None. TECHNIQUE: Ventral view of the abdomen obtained. FINDINGS: NG tube remains in place. Nonobstructive bowel gas pattern is unchanged. Stool lucencies noted throughout the colon. No definite pathologic calcifications identified. There is no sign of free air. No acute abnormality noted of the visualized osseous structures. IMPRESSION: NO CHANGE NONOBSTRUCTIVE BOWEL GAS PATTERN. INCREASED STOOL LUCENCIES THROUGHOUT THE COLON.
--- NOTE | 2020-03-19 10:11 | General Progress Note ---
Assessment/Plan Problem List: (1) COPD (chronic obstructive pulmonary disease) ICD Codes: J44.9 - Chronic obstructive pulmonary disease, unspecified SNOMED: 61553012 Qualifiers: Qualified Codes: J44.9 - Chronic obstructive pulmonary disease, unspecified (2) Pneumonia ICD Codes: J18.9 - Pneumonia, unspecified organism SNOMED: 101848119 Qualifiers: Qualified Codes: J18.9 - Pneumonia, unspecified organism (3) Fever ICD Codes: R50.9 - Fever, unspecified SNOMED: 031013568 Status: stable, progressing Assessment/Plan: wean fio2 monitor abg check cxr repeat swallow decreased sedation yesterday GI eval if fails swallow eval iv synthroid Subjective ROS Limited/Unobtainable: No Constitutional: Reports: malaise, weakness HEENT: Reports: no symptoms Cardiovascular: Reports: no symptoms Respiratory: Reports: cough, shortness of breath Gastrointestinal/Abdominal: Reports: difficulty swallowing Genitourinary: Reports: no symptoms Neurologic/Psychiatric: Reports: anxiety Endocrine: Reports: no symptoms Hematologic/Lymphatic: Reports: anemia Allergies: Coded Allergies: PENICILLINS (Verified Allergy, Unknown, 03/11/20) All Systems: reviewed and negative except above Subjective transferred to icu for bradycardia. HR better. received several dose of atropine. TSH 86! unable to take po pills. ngt inserted. Objective Last 24 Hour Vital Signs Date Time Temp Pulse Resp B/P (MAP) Pulse Ox O2 Delivery O2 Flow Rate FiO2 03/19/20 07:59 98 Venturi Mask 6.0 35 03/19/20 07:00 76 21 161/90 (113) 94 03/19/20 06:00 89 21 146/90 (108) 94 03/19/20 05:00 114 16 148/88 (108) 94 03/19/20 04:02 98.2 77 21 186/81 (116) 95 03/19/20 04:00 Venturi Mask 6.0 03/19/20 04:00 48 03/19/20 04:00 60 21 189/108 (135) 95 03/19/20 03:36 72 03/19/20 03:00 65 20 167/119 (135) 97 03/19/20 02:00 51 17 135/99 (111) 98 03/19/20 01:00 97.8 52 15 128/82 (97) 99 03/19/20 00:00 87 03/19/20 00:00 52 14 148/95 (112) 97 03/19/20 00:00 Venturi Mask 6.0 03/18/20 23:00 76 17 139/90 (106) 99 03/18/20 22:00 68 16 157/97 (117) 98 03/18/20 21:47 39 03/18/20 21:00 68 17 120/89 (99) 99 03/18/20 20:17 98 Venturi Mask 6.0 35 03/18/20 20:00 Venturi Mask 6.0 03/18/20 20:00 97.6 64 15 121/72 (88) 98 03/18/20 19:36 60 03/18/20 19:00 73 16 124/83 (97) 98 03/18/20 18:00 90 21 141/91 (108) 99 03/18/20 17:00 97.9 85 18 127/83 (98) 97 03/18/20 16:00 56 03/18/20 16:00 Venturi Mask 6.0 03/18/20 16:00 61 17 114/82 (93) 100 03/18/20 15:00 56 16 139/62 (87) 98 03/18/20 14:14 60 16 125/67 (86) 99 03/18/20 13:00 67 18 128/86 (100) 99 03/18/20 12:00 97.8 44 18 141/93 (109) 98 03/18/20 12:00 61 Intake and Output 03/18/20 03/19/20 19:00 07:00 Intake Total 767.91144 ml 1293.86532 ml Output Total 600 ml 1175 ml Balance 167.85953 ml 118.84861 ml IV Total 627.74829 ml 1013.57955 ml Tube Feeding 90 ml 280 ml Other 50 ml Output Urine Total 600 ml 1175 ml # Voids 12 # Bowel Movements 1 Laboratory Tests 03/18/20 11:00: White Blood Count 12.3H, Red Blood Count 4.07L, Hemoglobin 12.4, Hematocrit 39.5 , Mean Corpuscular Volume 97, Mean Corpuscular Hemoglobin 30.6, Mean Corpuscular Hemoglobin Concent 31.5L, Red Cell Distribution Width 13.3, Platelet Count 343, Mean Platelet Volume 9.2, Neutrophils (%) (Auto) 80.0H, Lymphocytes (%) (Auto) 13.3L, Monocytes (%) (Auto) 4.9, Eosinophils (%) (Auto) 1.1, Basophils (%) (Auto) 0.7, Sodium Level 141, Potassium Level 3.8, Chloride Level 102, Carbon Dioxide Level 33H, Anion Gap 7, Blood Urea Nitrogen 4L, Creatinine 0.5L, Estimat Glomerular Filtration Rate > 60, Glucose Level 121H, Calcium Level 8.9, Total Bilirubin 0.2, Aspartate Amino Transf (AST/SGOT) 28, Alanine Aminotransferase (ALT/SGPT) 35, Alkaline Phosphatase 85, Troponin I 0.000, Total Protein 6.5, Albumin 2.1L, Globulin 4.4, Albumin/Globulin Ratio 0.5L, Thyroid Stimulating Hormone (TSH) 84.638H 03/18/20 11:56: Arterial Blood pH 7.455H, Arterial Blood Partial Pressure CO2 45.6H, Arterial Blood Partial Pressure O2 54.8L, Arterial Blood HCO3 31.3H, Arterial Blood Oxygen Saturation 89.7*L, Arterial Blood Base Excess 6.5H, Keith Test Positive 03/19/20 05:43: White Blood Count 10.3, Red Blood Count 4.49, Hemoglobin 13.8, Hematocrit 43.6, Mean Corpuscular Volume 97, Mean Corpuscular Hemoglobin 30.8, Mean Corpuscular Hemoglobin Concent 31.7L, Red Cell Distribution Width 12.7, Platelet Count 374, Mean Platelet Volume 8.8, Neutrophils (%) (Auto) 80.9H, Lymphocytes (%) (Auto) 12.2L, Monocytes (%) (Auto) 4.2, Eosinophils (%) (Auto) 1.4, Basophils (%) (Auto ) 1.2, Sodium Level 141, Potassium Level 3.7, Chloride Level 101, Carbon Dioxide Level 33H, Anion Gap 7, Blood Urea Nitrogen 3L, Creatinine 0.6, Estimat Glomerular Filtration Rate > 60, Glucose Level 119H, Calcium Level 9.5, Total Bilirubin 0.2, Aspartate Amino Transf (AST/SGOT) 32, Alanine Aminotransferase ( ALT/SGPT) 40, Alkaline Phosphatase 96, Total Protein 7.2, Albumin 2.4L, Globulin 4.8, Albumin/Globulin Ratio 0.5L Height (Feet): 5 Height (Inches): 5.00 Weight (Pounds): 110 Objective General Appearance: WD/WN, lethargic Neck: non-tender Cardiovascular: normal rate, regular rhythm Respiratory/Chest: chest wall non-tender, lungs clear, normal breath sounds Abdomen: normal bowel sounds, non tender, soft, no organomegaly Edema: no edema noted Arm (L), no edema noted Arm (R), no edema noted Leg (L), no edema noted Leg (R), no edema noted Pedal (L), no edema noted Pedal (R), no edema noted Generalized Neurologic: alert Isaak Ledesma MD Mar 19, 2020 10:11
--- NOTE | 2020-03-19 10:15 | NUR ---
NURSE NOTES: Dr. bee placed order for X-ray abdominal to assess. Dr. Bee notified of abdominal x-ray, order to have lactulose and enema to be given.
--- NOTE | 2020-03-19 10:24 | NUR ---
REPORT: SECOND FACING BASTER MBSS RESULTS COMPLETED MODIFIED BARIUM SWALLOW STUDY WITH PATIENT, COMPLETE REPORT IN CARE ACTIVITY SECTION INITIAL IMPRESSIONS Moderately severe oropharyngeal dysphagia exacerbated by poor breathing-swallowing coordination, delayed swallow initiation, incomplete and late closure of laryngeal vestibular. Immediate aspiration with thin liquids and nectar thick liquids via teaspoon, wet vocal quality. Patient's coughing are ineffective and weak in clearing aspirated materials. THIN LIQUIDS AND NECTAR THICK LIQUIDS -Via teaspoon: repetitive and disorganized lingual movement, delayed swallow trigger with bolus head in pyriforms; delayed and incomplete laryngeal vestibule closure with partial epiglottic inversion, little to no pharyngeal stripping wave with minimal distention/marked obstruction of bolus flow at the level of the pharyngoesophageal segment opening. Patient presenting with immediate aspiration with thin liquids and nectar thick liquids via teaspoon, increased respiratory rate (28-30 breaths/min), and wet vocal quality. HAS ASPIRATION RISK AND REDUCED SWALLOW EFFICIENCY DUE TO THE FOLLOWING DEFICITS: Oral Impairment Lip Closure Tongue Control Bolus transport/lingual motion Pharyngeal Impairment Initiation of pharyngeal swallow Anterior hyoid excursion (AHE) Epiglottic movement Laryngeal vestibular closure Pharyngeal stripping wave Pharyngoesophageal Segment (PES) opening Tongue base retraction Pharyngeal residue Decrease pharyngeal sensation ESOPHAGEAL PHASE Patient noted to have brief stasis and minimal distention of pharyngoesophageal segment; with marked obstruction of bolus flow resulting in bolus retention in valleculae, radiographic evidence of aspiration from residuals. Patient did cough, however, coughs were weak and ineffective. TRIAL TX: Of note, Patient was unable to maintain normal neck positioning despite being given support via pillows and positioning. At baseline, Patient appears to have hyperextension neck positioning. Patient was unable to maintain adequate posture modifications for trial tx. Patient will require alternative nutrition/hydration (NGT 12 SWAZI) and for meds due the severity of dysphagia. RECOMMENDATIONS: 1. NPO, 12 SWAZI for nutrition/hydration and medication management 2. SECOND FACING BASTER plans to f/u 3-4x a week for dysphagia tx/management. 3. Patient would benefit from GI consult due to s/s of esophageal dysphagia. SECOND FACING BASTER [id number]
--- NOTE | 2020-03-19 11:00 | NUR ---
NURSE NOTES: Chest X-ray order placed by Dr. bee for SOB. patient is on venti mask at 35% with no distress noted, patient is calm and alert. Dr. Bee made aware of ABG results.
--- NOTE | 2020-03-19 11:13 | NUR ---
RADIOLOGY DEPT., CHEST AND ABDOMEN X-RAYS COMPLETED.-P.DYE
--- NOTE | 2020-03-19 11:23 | Diagnostic Imaging Report ---
Procedure: XRAY Chest 1v Reason for study: Reason For Exam: SOB Comparison films: None. FINDINGS: There is a new NG tube in the stomach. Vascularity is normal. Interstitial prominence is improved in both lungs. Left retrocardiac infiltrate again noted. Some linear atelectasis right midlung is improved Cardiac and mediastinal silhouette are within normal limits. CP angles are sharp. The bony thorax appear unremarkable. IMPRESSION: New NG tube in good position. Decreased interstitial prominence of both lungs. Left retrocardiac infiltrate.
--- NOTE | 2020-03-19 12:40 | NUR ---
CASE MANAGEMENT: REVIEW SI: COPD . PNA . BRADYCARDIA . T 97.8 HR 48 RR 15 BP 148/95 SAT 99% VENTURI MASK FLOW RATE 6.0 IS: D5 w/KCl 20MEQ IVF @ 100ML/HR ZOSYN IV Q8HR VANCOMYCIN IV Q8HR HEPARIN SUBQ Q12HR ATROPINE 1MG NEEDED FOR HR <40 NGT FEEDING REPEAT SWALLOW EVAL ICU STATUS DCP: PATIENT IS FROM [facility]
--- NOTE | 2020-03-19 13:15 | NUR ---
NURSE NOTES: Dr. Perez assessed patient mental status at the bedside, no verbal order given at this time. will continue plan of care.
--- NOTE | 2020-03-19 13:34 | NUR ---
LATIN PROFESSOR Discharge Note: -Patient being seen by LATIN PROFESSOR for dysphagia tx and management. Initial bedside swallow evaluation took place on 03/12/20. On 03/18/20 due to cardiac strip with junctional rhythm, Patient was put on venti mask 6L Fi02 35% and transferred to ICU. -LATIN PROFESSOR spoke with RN regarding Patients current condition, RN is aware of Patients oral care/hygiene needs. -Discontinue LATIN PROFESSOR intervention s/p Patient's change in medical status and now requiring ICU. RECOMMENDATIONS: 1. NPO, 12 SINHALA for nutrition/hydration and medication management 2. Patient would benefit from GI consult due to s/s of esophageal dysphagia. Please re-refer Patient to LATIN PROFESSOR for re-evaluation s/p change in medical status to re-assess swallow physiology and function. Patient will benefit from additional MBSS while in house to evaluate swallow efficacy and r/o silent aspiration given the severity of Patients swallowing deficit. Thank you for this referral! LATIN PROFESSOR [id number] Completed MBSS with Patient on 03/16/20 Impressions: Moderately severe oropharyngeal dysphagia exacerbated by poor breathing-swallowing coordination, delayed swallow initiation, incomplete and late closure of laryngeal vestibular. Immediate aspiration with thin liquids and nectar thick liquids via teaspoon, wet vocal quality. Patient's coughing are ineffective and weak in clearing aspirated materials. Thank you for this referral! LATIN PROFESSOR [id number]
--- NOTE | 2020-03-19 14:05 | Surgery Progress Note ---
Surgery Progress Note Subjective Additional Comments more confused transferred to ICU for eval [employer] PROFESSIONAL eval noted GI input please labs noted Objective Last 24 Hour Vital Signs Date Time Temp Pulse Resp B/P (MAP) Pulse Ox O2 Delivery O2 Flow Rate FiO2 03/19/20 13:00 61 23 154/94 (114) 94 03/19/20 12:00 98.2 74 24 156/80 (105) 93 03/19/20 12:00 69 03/19/20 12:00 Venturi Mask 6.0 03/19/20 11:00 84 21 140/92 (108) 97 03/19/20 10:00 62 18 150/106 (121) 95 03/19/20 09:00 79 22 180/110 (133) 91 03/19/20 08:00 Venturi Mask 6.0 03/19/20 08:00 97.2 76 18 156/99 (118) 93 03/19/20 08:00 75 03/19/20 07:59 98 Venturi Mask 6.0 35 03/19/20 07:00 76 21 161/90 (113) 94 03/19/20 06:00 89 21 146/90 (108) 94 03/19/20 05:00 114 16 148/88 (108) 94 03/19/20 04:02 98.2 77 21 186/81 (116) 95 03/19/20 04:00 Venturi Mask 6.0 03/19/20 04:00 48 03/19/20 04:00 60 21 189/108 (135) 95 03/19/20 03:36 72 03/19/20 03:00 65 20 167/119 (135) 97 03/19/20 02:00 51 17 135/99 (111) 98 03/19/20 01:00 97.8 52 15 128/82 (97) 99 03/19/20 00:00 87 03/19/20 00:00 52 14 148/95 (112) 97 03/19/20 00:00 Venturi Mask 6.0 03/18/20 23:00 76 17 139/90 (106) 99 03/18/20 22:00 68 16 157/97 (117) 98 03/18/20 21:47 39 03/18/20 21:00 68 17 120/89 (99) 99 03/18/20 20:17 98 Venturi Mask 6.0 35 03/18/20 20:00 Venturi Mask 6.0 03/18/20 20:00 97.6 64 15 121/72 (88) 98 03/18/20 19:36 60 03/18/20 19:00 73 16 124/83 (97) 98 03/18/20 18:00 90 21 141/91 (108) 99 03/18/20 17:00 97.9 85 18 127/83 (98) 97 03/18/20 16:00 56 03/18/20 16:00 Venturi Mask 6.0 03/18/20 16:00 61 17 114/82 (93) 100 03/18/20 15:00 56 16 139/62 (87) 98 03/18/20 14:14 60 16 125/67 (86) 99 I&O Intake and Output 03/18/20 03/19/20 19:00 07:00 Intake Total 767.39814 ml 1293.55241 ml Output Total 600 ml 1175 ml Balance 167.36957 ml 118.96536 ml IV Total 627.43475 ml 1013.85274 ml Tube Feeding 90 ml 280 ml Other 50 ml Output Urine Total 600 ml 1175 ml # Voids 12 # Bowel Movements 1 Dressing: other Wound: other Drains: other Cardiovascular: RSR Respiratory: decreased breath sounds Abdomen: soft, present bowel sounds Extremities: no cyanosis Laboratory Tests Test 03/19/20 05:43 03/19/20 10:25 White Blood Count 10.3 K/UL (4.8-10.8) Red Blood Count 4.49 M/UL (4.20-5.40) Hemoglobin 13.8 G/DL (12.0-16.0) Hematocrit 43.6 % (37.0-47.0) Mean Corpuscular Volume 97 FL (80-99) Mean Corpuscular Hemoglobin 30.8 PG (27.0-31.0) Mean Corpuscular Hemoglobin Concent 31.7 G/DL (32.0-36.0) L Red Cell Distribution Width 12.7 % (11.6-14.8) Platelet Count 374 K/UL (150-450) Mean Platelet Volume 8.8 FL (6.5-10.1) Neutrophils (%) (Auto) 80.9 % (45.0-75.0) H Lymphocytes (%) (Auto) 12.2 % (20.0-45.0) L Monocytes (%) (Auto) 4.2 % (1.0-10.0) Eosinophils (%) (Auto) 1.4 % (0.0-3.0) Basophils (%) (Auto) 1.2 % (0.0-2.0) Sodium Level 141 MMOL/L (136-145) Potassium Level 3.7 MMOL/L (3.5-5.1) Chloride Level 101 MMOL/L (98-107) Carbon Dioxide Level 33 MMOL/L (21-32) H Anion Gap 7 mmol/L (5-15) Blood Urea Nitrogen 3 mg/dL (7-18) L Creatinine 0.6 MG/DL (0.55-1.30) Estimat Glomerular Filtration Rate > 60 mL/min (>60) Glucose Level 119 MG/DL (74-106) H Calcium Level 9.5 MG/DL (8.5-10.1) Total Bilirubin 0.2 MG/DL (0.2-1.0) Aspartate Amino Transf (AST/SGOT) 32 U/L (15-37) Alanine Aminotransferase (ALT/SGPT) 40 U/L (12-78) Alkaline Phosphatase 96 U/L (46-116) Total Protein 7.2 G/DL (6.4-8.2) Albumin 2.4 G/DL (3.4-5.0) L Globulin 4.8 g/dL Albumin/Globulin Ratio 0.5 (1.0-2.7) L Arterial Blood pH 7.449 (7.350-7.450) Arterial Blood Partial Pressure CO2 44.2 mmHg (35.0-45.0) Arterial Blood Partial Pressure O2 69.3 mmHg (75.0-100.0) L Arterial Blood HCO3 30.0 mmol/L (22.0-26.0) H Arterial Blood Oxygen Saturation 94.1 % (95-100) L Arterial Blood Base Excess 5.2 (-2-2) H Keith Test Positive Plan Problems: (1) Malnutrition Assessment & Plan: not eating enough TF started adv as tolerated bowel regimen DDAILY ESTIMATED NEEDS: Needs based on Wound, pulmonary / 56kg 25-35 kcals/kg 6975-3362 total kcals 1.25-1.8 g protein/kg 70-100 g total protein 25-30 mL/kg 2814-9006 total fluid mLs NUTRITION DIAGNOSIS: * Swallowing difficulty R/T dysphagia as evidenced by [employer] w/ rec for NPO, now on NGT feeds. * Increased kcal/prot/micronutrients needs R/T wound healing as evidenced by pt admitted w/ multiple wounds including full thickness wound @ sacrum, TPI wound @ L Gluteal cheek, and non-Blanchable erythema @ BL heels. CURRENT TF:Jevity 1.2 @30ml/hr ENTERAL NUTRITION RECOMMENDATIONS: JEVITY 1.2 goal of 55ml/hr x24 hrs to provide 1320ml, 1584 kcal, 73g pro, 1065ml free H2O - rec to INCREASE current TF as tolerated to goal of 55ml/hr to better meet est needs. - flush per CHRISTINA JONES over 30 degrees ADDITIONAL RECOMMENDATIONS: * Per SNF: HT=66" PW=202vgs (03/07/20) * Wound healing: continue MVI, Vit C, and ZnSO4 * VIA NGT-> add TONI BID for wound care TF recs as above * Monitor lytes, replete as needed THIS 60 Y.O.M. WAS ADMITTED WITH ACUTE ISSUES - FEVER, HYPOXIC WITH LOW 02 SATS ON NON-REBREATHER, RESP RATE 18 BPM INITIALLY PER MEDICAL RECORD. PER RN, THE PATIENT HAD A RAPID RESPOSE THIS MORNING (DESAT TO 90S AND RAPID RESP RATE). H/O COPD, CARDIAC DZ, HYPOTHYROIDISM, HTN, ALLERGIC RHINITIS, SCHIZOPHRENIA (ON OLANZAPINE AT SNF), BASELINE NONVERBAL. PER POLST FULL TX BUT NO INFORMATION REGARDING TUBE FEEDING PREFERENCES. AT SNF ON A REGULAR DIET TEXTURE AND THIN LIQUIDS WITH PROSTAT SF DRINK WITH MEALS. NOW ON A REGULAR TEXTURE DIET AND THIN LIQUIDS BUT DID NOT TAKE ANY PO. PER LAURIE EARLY, THE PT UNABLE TO TAKE LARGE PILLS BUT APPEARED TO TOLERATE CRUSHED MEDS WITH APPLESAUCE W/O OVERT ASPIRATION. PATIENT SEEN WITH FUNMI HEATH. PER RT RESP RATE 22 BPM AND NOT ABLE TO ongoing unintelligible confabulations. Patient did request a sandwich, however, not appropriate for regular texture at this time. VITALS ON 2 L NASAL CANNULA: HR: 73; RR: 20; SP02: 95% Patient's oral hygiene is improving, ongoing poor speech intelligibility which appears to be more due to poor articulation precision/oral motor coordination versus 2/2 dry mouth. CXR on 03/14/20: Findings: Interim considerable improvement of previously demonstrated left lower lobe infiltrate. There is a residual disease in the retrocardiac region as well as generalized reticular interstitial opacities throughout the left mid and lower lung. There is questionably a 3 cm spiculated opacity projected over the apex. Minimal right mid and lower lung reticular opacities are also demonstrated. There is some right midlung atelectasis versus thickening of the minor fissure. The heart size is normal. The pleural spaces are clear Impression: Considerable improvement the persistence of previously demonstrated left mid and lower lung infiltrates, since prior study of 03/11/2020. [employer] plans to continue to f/u and monitor Patients readiness for PO trials for diet texture upgrade. RN aware of recommendations, plan, and aspiration precautions sign posted above Patients HOB. RECOMMENDATIONS: 1. Continue Moist Puree with [place] Thick Liquids Diet via 1 to 1 careful handfeeding while implementing posted aspiration precautions - RD recommendations appreciated for diet texture/type 2. Patient requires oral hygiene BID + lip moisturizer. (2) Decubitus skin ulcer Assessment & Plan: Pt presented on admission with multiple pressure injuries. Full thickness Pressure injury Sacrococcygeal area. (L)4cm x (W)2.5cm. Base of wound is fatou with scattered slough ,which was easily removed with gentle friction. Wound is now fatou with 25% soft necrosis at distal base of wound. Small amt sanguineous exudate noted.No odor noted. Periwound erythematous and denuded. Two additional Pressure Injuries noted to R gluteal cheek.(Proximal) Base of wound is purple and indurated(L)3cm x (W)1.5cm. Surrounding erythematous and denuded skin (Distal) R gluteus(L)1.4cm x (W)0.6cm. Base of wound is purple, indurated with surrounding erythematous and denuded skin. DTPI L Gluteal cheek (L)1.5cm x (W)1.3cm. Base of wound is indurated, purple with surrounding non-blanching erythema. Additional scattered areas that are maroon in colour noted to L gluteal cheek. Lateral L Heel boggy with non-blanching erythema with delineated margins. (L) 4cm x (W)4.5cm. Lateral R Heel Boggy with non-Blanchable erythema with delineated margins(L) 2.5cm x (W)2.5cm. Tx.Plan: Cleanse Sacrococcygeal area with saline. Apply TheraHoney , Apply Moisture Barrier Paste to Sacrum, R and L Buttocks. Cover entire Area with Optifoam drsgs. Change every 3 days and prn. Apply Moisture Barrier Paste to R and L Buttocks . Cover with Optifoam drsgs. Changee very 3 days and prn. Apply Cavilon Skin Barrier to R and L Trochanteric areas. Cover with Optifoam drsg. Change every 7 days and prn. Apply Cavilon Skin Barrier to R and L Heels. Cover each heel with Optifoam drsg. Change every 7 days and prn. Reposition at least every 2hours or as tolerated. Off-load heels with Pillow. APM/ERIK Mattress. (3) Pneumonia Assessment & Plan: Lungs: There is mild left lower lobe infiltrate consistent with pneumonia. Pleural space: Unremarkable. No pneumothorax. Heart: The heart size is at the upper limits of normal. Mediastinum: Unremarkable. Bones/joints: Unremarkable. IMPRESSION: There is mild left lower lobe infiltrate consistent with pneumonia. (4) COPD (chronic obstructive pulmonary disease) (5) Fever Eddie Perez Mar 19, 2020 14:05
--- NOTE | 2020-03-19 15:10 | NUR ---
NURSE NOTES: Patient Heart rate noted to be around 55-60bpm, patient is calm and awakes with shaking verbal commands, remains on venti mask at 35% with satrautions ranging from 91-92%.
--- NOTE | 2020-03-19 15:47 | NUR ---
*-* INSURANCE *-* UPDATED CLINICALS AND REVIEWS HAVE BEEN FAXED TO: [facility] F: [phone] ref# [id number]
--- NOTE | 2020-03-19 15:47 | NUR ---
NURSE NOTES: Speech therapist round this afternoon to assess patient, no evaluation taken place due to patient change is status and transfer to ICU. will notify Dr. Ledesma.
[2020-03-19] MEDS ORDERED: Sterile Water Irrig 1000ml IRRIG ONE (17:42)
--- NOTE | 2020-03-19 19:38 | NUR ---
HAND-OFF: Report given to SHARATH Xiong. endorsed to nurse to hold following doses of trihexyphenidyl as it may cause paroxysmal sinus bradycardia, also ordered to have a order for st swallow evaluation placed for 03/20/20.
--- NOTE | 2020-03-19 20:00 | NUR ---
NURSE NOTES: received report from rn pt vm 40% with o2sat 98 % hr 68-90 no acute resp distress noted
[2020-03-20] VITALS (28 sets, daily range): BP systolic 72–168; BP diastolic 46–104
[2020-03-20] MEDS: Vancomycin 750 MG in NS 275 ML IVPB SCH ×2 (00:55→09:27)
[2020-03-20] MEDS: Albuterol 90mcg Inhaler 8gm INH SCH ×4 (03:00→15:00)
[2020-03-20 04:36] LABS: HEMATOCRIT 37.7 % (37.0-47.0); HEMOGLOBIN 12.1 G/DL (12.0-16.0); MEAN CORPUSCULAR VOLUME 98 FL (80-99); PLATELET COUNT 371 K/UL (150-450); RED BLOOD COUNT 3.86 M/UL (4.20-5.40); RED CELL DISTRIBUTION WIDTH 13.5 % (11.6-14.8); WHITE BLOOD COUNT 14.8 K/UL (4.8-10.8)
[2020-03-20 05:27] LABS: ALANINE AMINOTRANSFERASE 49 U/L (12-78); ALBUMIN 2.1 G/DL (3.4-5.0); ALBUMIN/GLOBULIN RATIO 0.5 (1.0-2.7); ALKALINE PHOSPHATASE 88 U/L (46-116); ANION GAP 6 mmol/L (5-15); ASPARTATE AMINO TRANSFERASE 32 U/L (15-37); BILIRUBIN,TOTAL 0.2 MG/DL (0.2-1.0); BLOOD UREA NITROGEN 6 mg/dL (7-18); CALCIUM 8.8 MG/DL (8.5-10.1); CARBON DIOXIDE 31 MMOL/L (21-32); CHLORIDE 103 MMOL/L (98-107); CREATININE 0.8 MG/DL (0.55-1.30); POTASSIUM 3.9 MMOL/L (3.5-5.1); SODIUM 140 MMOL/L (136-145)
[2020-03-20] MEDS: Piperacillin/Tazobactam 3.375 GM in NS 110 ML IVPB SCH ×3 (05:49→21:54)
[2020-03-20] MEDS: Atropine Inj 1mg/10ml Syr IVP PRN (08:01)
--- NOTE | 2020-03-20 08:01 | NUR ---
NURSE NOTES: Report received from SHARATH iXong. Pt is lethargic and mumbles for questions. Sinus arminda 36 lowest to 50's, fluctuates on garland machine operator. Afebrile. Pt is on Bi-pap 16/4, FiO2 20%, O2 sat 96-98%. Left NGT in place. Feeding held for residual 80cc from caustic cresylate shift superintendent. Will recheck residual. Abdomen distended, soft, and round. Pure wick draining yellow urine. IV to left hand G20 and right AC G20 patent and asymptomatic. Pt is on D5W with 20 meq KCL at 100cc/hr. Bed in lowest position. Side rails up x3. Will resume plan of care.
--- NOTE | 2020-03-20 08:01 | NUR ---
HAND-OFF: Report given to kim rn using sbar.
--- NOTE | 2020-03-20 08:02 | NUR ---
NURSE NOTES: Atropine 1mg IV given for HR 36-39. Will continue to monitor.
[2020-03-20] MEDS: D5W w/KCl 20mEq 1,000 ML IV SCH ×2 (08:10→17:00)
--- NOTE | 2020-03-20 09:20 | NUR ---
NURSE NOTES: Patient is desaturating to 85-90%. RT increased FiO2 from 20% to 60%. RT will draw ABG at around 10AM.
[2020-03-20] MEDS: Zinc Sulfate 220mg ORAL SCH (09:27)
[2020-03-20] MEDS: Lactulose 20gm/30ml UDC ORAL SCH ×3 (09:27→17:34)
[2020-03-20] MEDS: Multivitamin w/Minerals tab ORAL SCH (09:27)
[2020-03-20] MEDS: Ascorbic Acid 500mg tab ORAL SCH (09:27)
[2020-03-20] MEDS: Heparin 5000 units/ml inj SUBQ SCH ×2 (09:29→21:00)
--- NOTE | 2020-03-20 09:30 | NUR ---
EXPEDITION SUPERVISOR NOTE -Orders received and acknowledged for bedside swallow evaluation from Dr. Ledesma. EXPEDITION SUPERVISOR went to bedside to speak with RN, who states Patient is very lethargic, HR dropping earlier this AM therefore, changed from Venti Mask to Bipap. -EXPEDITION SUPERVISOR and RN in agreement Patient is not stable for EXPEDITION SUPERVISOR swallow evaluation today, EXPEDITION SUPERVISOR will continue to f/u with Patient tomorrow (03/21/20) to complete swallow evaluation if Patient is medically appropriate. Thank you for this referral! EXPEDITION SUPERVISOR [phone]
--- NOTE | 2020-03-20 10:46 | General Progress Note ---
Assessment/Plan Problem List: (1) COPD (chronic obstructive pulmonary disease) ICD Codes: J44.9 - Chronic obstructive pulmonary disease, unspecified SNOMED: 09948139 Qualifiers: Qualified Codes: J44.9 - Chronic obstructive pulmonary disease, unspecified (2) Pneumonia ICD Codes: J18.9 - Pneumonia, unspecified organism SNOMED: 311154674 Qualifiers: Qualified Codes: J18.9 - Pneumonia, unspecified organism (3) Fever ICD Codes: R50.9 - Fever, unspecified SNOMED: 171251049 Status: stable, progressing Assessment/Plan: wean fio2/bipap monitor abg dc all sedation GI eval if fails swallow eval iv synthroid abx check duplex Subjective ROS Limited/Unobtainable: No Constitutional: Reports: malaise, weakness HEENT: Reports: no symptoms Cardiovascular: Reports: no symptoms Respiratory: Reports: cough, shortness of breath Gastrointestinal/Abdominal: Reports: no symptoms Genitourinary: Reports: no symptoms Neurologic/Psychiatric: Reports: emotional problems Endocrine: Reports: no symptoms Hematologic/Lymphatic: Reports: anemia Allergies: Coded Allergies: PENICILLINS (Verified Allergy, Unknown, 03/11/20) All Systems: reviewed and negative except above Subjective bradycardia mostly better. more lethargic and sleepy this am. increase pco2. failed swallow eval. on ngt feeds Objective Last 24 Hour Vital Signs Date Time Temp Pulse Resp B/P (MAP) Pulse Ox O2 Delivery O2 Flow Rate FiO2 03/20/20 10:00 73 23 104/64 (77) 92 03/20/20 09:32 94 Bi-Pap 60 03/20/20 09:32 89 23 94 60 03/20/20 09:20 60 03/20/20 09:00 94 21 119/104 (109) 92 03/20/20 08:00 97.9 60 21 148/103 (118) 98 03/20/20 08:00 Bi-pap 03/20/20 07:07 56 19 92 100 03/20/20 07:00 40 16 109/46 (67) 94 03/20/20 06:00 51 25 132/70 (90) 82 03/20/20 05:00 59 22 168/95 (119) 88 03/20/20 04:00 Venturi Mask 6.0 03/20/20 04:00 83 20 123/82 (96) 98 03/20/20 04:00 46 03/20/20 03:00 88 22 123/74 (90) 99 03/20/20 02:00 93 21 131/81 (98) 99 03/20/20 01:00 90 20 121/75 (90) 97 03/20/20 00:00 98.6 97 23 117/83 (94) 98 03/20/20 00:00 Venturi Mask 6.0 03/20/20 00:00 86 03/19/20 23:00 102 21 120/82 (95) 98 03/19/20 22:00 105 23 144/83 (103) 99 03/19/20 21:00 105 23 126/77 (93) 95 03/19/20 20:00 98.5 100 24 136/84 (101) 95 03/19/20 20:00 Venturi Mask 6.0 03/19/20 19:02 95 Venturi Mask 8.0 40 03/19/20 19:00 97 25 129/82 (98) 89 03/19/20 18:00 95 23 145/88 (107) 96 03/19/20 17:00 93 23 135/80 (98) 94 03/19/20 16:00 98.3 82 23 126/86 (99) 90 03/19/20 16:00 Venturi Mask 6.0 03/19/20 16:00 86 03/19/20 15:00 61 24 135/82 (99) 91 03/19/20 14:00 79 19 145/100 (115) 95 03/19/20 13:00 61 23 154/94 (114) 94 03/19/20 12:00 98.2 74 24 156/80 (105) 93 03/19/20 12:00 69 03/19/20 12:00 Venturi Mask 6.0 03/19/20 11:00 84 21 140/92 (108) 97 Intake and Output 03/19/20 03/20/20 19:00 07:00 Intake Total 2460.0 ml 1662.500 ml Output Total 250 ml 300 ml Balance 2210.0 ml 1362.500 ml Free Water 220 ml 120 ml IV Total 1860.0 ml 1302.500 ml Tube Feeding 360 ml 240 ml Other 20 ml Output Urine Total 250 ml 300 ml # Voids 1 Laboratory Tests 03/20/20 04:05: White Blood Count 14.8H, Red Blood Count 3.86L, Hemoglobin 12.1, Hematocrit 37.7 , Mean Corpuscular Volume 98, Mean Corpuscular Hemoglobin 31.4H, Mean Corpuscular Hemoglobin Concent 32.2, Red Cell Distribution Width 13.5, Platelet Count 371, Mean Platelet Volume 8.7, Neutrophils (%) (Auto) , Lymphocytes (%) ( Auto) , Monocytes (%) (Auto) , Eosinophils (%) (Auto) , Basophils (%) (Auto) , Sodium Level 140, Potassium Level 3.9, Chloride Level 103, Carbon Dioxide Level 31, Anion Gap 6, Blood Urea Nitrogen 6L, Creatinine 0.8, Estimat Glomerular Filtration Rate > 60, Glucose Level 140H, Calcium Level 8.8, Total Bilirubin 0.2 , Aspartate Amino Transf (AST/SGOT) 32, Alanine Aminotransferase (ALT/SGPT) 49, Alkaline Phosphatase 88, Total Protein 6.2L, Albumin 2.1L, Globulin 4.1, Albumin /Globulin Ratio 0.5L 03/20/20 06:43: Arterial Blood pH 7.311L, Arterial Blood Partial Pressure CO2 55.9*H, Arterial Blood Partial Pressure O2 47.6*L, Arterial Blood HCO3 27.6H, Arterial Blood Oxygen Saturation 81.0*L, Arterial Blood Base Excess 0.3, Keith Test Positive 03/20/20 08:10: Vancomycin Level Trough 20.6H Height (Feet): 5 Height (Inches): 5.00 Weight (Pounds): 110 Objective General Appearance: WD/WN, lethargic Neck: non-tender Cardiovascular: normal rate, regular rhythm Respiratory/Chest: chest wall non-tender, lungs clear, normal breath sounds Abdomen: normal bowel sounds, non tender, soft, no organomegaly Edema: no edema noted Arm (L), no edema noted Arm (R), no edema noted Leg (L), no edema noted Leg (R), no edema noted Pedal (L), no edema noted Pedal (R), no edema noted Generalized Neurologic: alert Isaak Ledesma MD Mar 20, 2020 10:46
--- NOTE | 2020-03-20 11:26 | NUR ---
NURSE NOTES: Pt is still lethargic. Pt is saturating 98-100% on Bi-pap 16/4, FiO2 60%. Called and left a message to Dr Ledesma regarding ABG result. Awaiting call back for new orders.
--- NOTE | 2020-03-20 11:32 | NUR ---
*-* INSURANCE *-* UPDATED CLINICALS HAVE BEEN FAXED TO: [facility] Ref# [id number] F: [phone]
--- NOTE | 2020-03-20 11:59 | NUR ---
NURSE NOTES: Dr Ledesma called back. Order to change Bi-pap setting and ABG in 1 hour and CXR and Lasix 40 mg IVP received, noted, and carried out. Notified RT.
--- NOTE | 2020-03-20 12:35 | NUR ---
RADIOLOGY DEPT., CHEST X-RAY DONE., -P.DYE
--- NOTE | 2020-03-20 12:58 | Diagnostic Imaging Report ---
Procedure: XRAY Chest 1v Reason for study: Reason For Exam: SOB Comparison films: 03/19/2020. FINDINGS: NG tube remains in place. Vascularity is normal. There is increased left lung infiltrates and also new opacification in the left retrocardiac region. Cardiac and mediastinal silhouette are within normal limits. CP angles are sharp. The bony thorax appear unremarkable. IMPRESSION: Increased left lung alveolar disease
--- NOTE | 2020-03-20 13:48 | NUR ---
ASSEMBLER PING PONG TABLE NOTE Pt was transferred to ICU. Per chart review, pt is covid negative, on bi-pap, lethargic and A&O 1x. There is no emergency contact listed on the facesheet. SW spoke w/ Alvarez from [facility] #[phone] and confirmed there is no emergency contact and pt is self-responsible. There is a copy of POLST for full code signed by pt on 02/22/2020.
--- NOTE | 2020-03-20 14:19 | NUR ---
NURSE NOTES: ABG drawn by RT. Called and left a message to Dr Ledesma regarding the result. Awaiting call back for new orders.
--- NOTE | 2020-03-20 14:36 | NUR ---
NURSE NOTES: Dr Ledesma called back. Notified him with patient's current condition including CXR result, O2 sat, current Bi-pap setting. No new orders for now.
--- NOTE | 2020-03-20 14:58 | NUR ---
NURSE NOTES: RR 30's. HR 106, BP 138/100. Temp 98.0 axillary. Patient is saturating 95-98% on Bi-pap FiO2 100%. Still lethargic. Will continue to monitor.
--- NOTE | 2020-03-20 15:40 | Surgery Progress Note ---
Surgery Progress Note Subjective Additional Comments RR in the 30's. HR tachy, BP stable. Temp afebrile. Patient is saturating 95-98 % on Bi-pap FiO2 100%. ABG noted retaining co2 cont bipap albs reviewed cxr noted Objective Last 24 Hour Vital Signs Date Time Temp Pulse Resp B/P (MAP) Pulse Ox O2 Delivery O2 Flow Rate FiO2 03/20/20 15:00 98.0 107 34 132/91 (105) 97 03/20/20 14:00 116 32 138/100 (113) 93 03/20/20 13:00 109 36 148/90 (109) 90 03/20/20 12:00 97.9 57 24 135/86 (102) 96 03/20/20 12:00 Bi-pap 03/20/20 11:59 60 03/20/20 11:25 73 03/20/20 11:00 65 26 125/72 (89) 97 03/20/20 10:00 73 23 104/64 (77) 92 03/20/20 09:32 94 Bi-Pap 60 03/20/20 09:32 89 23 94 60 03/20/20 09:20 60 03/20/20 09:00 94 21 119/104 (109) 92 03/20/20 08:00 97.9 60 21 148/103 (118) 98 03/20/20 08:00 Bi-pap 03/20/20 07:50 46 03/20/20 07:07 56 19 92 100 03/20/20 07:00 40 16 109/46 (67) 94 03/20/20 06:00 51 25 132/70 (90) 82 03/20/20 05:00 59 22 168/95 (119) 88 03/20/20 04:00 Venturi Mask 6.0 03/20/20 04:00 83 20 123/82 (96) 98 03/20/20 04:00 46 03/20/20 03:00 88 22 123/74 (90) 99 03/20/20 02:00 93 21 131/81 (98) 99 03/20/20 01:00 90 20 121/75 (90) 97 03/20/20 00:00 98.6 97 23 117/83 (94) 98 03/20/20 00:00 Venturi Mask 6.0 03/20/20 00:00 86 03/19/20 23:00 102 21 120/82 (95) 98 03/19/20 22:00 105 23 144/83 (103) 99 03/19/20 21:00 105 23 126/77 (93) 95 03/19/20 20:00 98.5 100 24 136/84 (101) 95 03/19/20 20:00 Venturi Mask 6.0 03/19/20 19:02 95 Venturi Mask 8.0 40 03/19/20 19:00 97 25 129/82 (98) 89 03/19/20 18:00 95 23 145/88 (107) 96 03/19/20 17:00 93 23 135/80 (98) 94 03/19/20 16:00 98.3 82 23 126/86 (99) 90 03/19/20 16:00 Venturi Mask 6.0 03/19/20 16:00 86 I&O Intake and Output 03/19/20 03/20/20 19:00 07:00 Intake Total 2460.0 ml 1662.500 ml Output Total 250 ml 300 ml Balance 2210.0 ml 1362.500 ml Free Water 220 ml 120 ml IV Total 1860.0 ml 1302.500 ml Tube Feeding 360 ml 240 ml Other 20 ml Output Urine Total 250 ml 300 ml # Voids 1 Dressing: other Wound: other Drains: other Cardiovascular: RSR Respiratory: decreased breath sounds, other Abdomen: soft, non-tender, present bowel sounds Extremities: no edema, no tenderness, no cyanosis Laboratory Tests Test 03/20/20 04:05 03/20/20 06:43 03/20/20 08:10 03/20/20 10:40 White Blood Count 14.8 K/UL (4.8-10.8) H Red Blood Count 3.86 M/UL (4.20-5.40) L Hemoglobin 12.1 G/DL (12.0-16.0) Hematocrit 37.7 % (37.0-47.0) Mean Corpuscular Volume 98 FL (80-99) Mean Corpuscular Hemoglobin 31.4 PG (27.0-31.0) H Mean Corpuscular Hemoglobin Concent 32.2 G/DL (32.0-36.0) Red Cell Distribution Width 13.5 % (11.6-14.8) Platelet Count 371 K/UL (150-450) Mean Platelet Volume 8.7 FL (6.5-10.1) Neutrophils (%) (Auto) % (45.0-75.0) Lymphocytes (%) (Auto) % (20.0-45.0) Monocytes (%) (Auto) % (1.0-10.0) Eosinophils (%) (Auto) % (0.0-3.0) Basophils (%) (Auto) % (0.0-2.0) Sodium Level 140 MMOL/L (136-145) Potassium Level 3.9 MMOL/L (3.5-5.1) Chloride Level 103 MMOL/L (98-107) Carbon Dioxide Level 31 MMOL/L (21-32) Anion Gap 6 mmol/L (5-15) Blood Urea Nitrogen 6 mg/dL (7-18) L Creatinine 0.8 MG/DL (0.55-1.30) Estimat Glomerular Filtration Rate > 60 mL/min (>60) Glucose Level 140 MG/DL (74-106) H Calcium Level 8.8 MG/DL (8.5-10.1) Total Bilirubin 0.2 MG/DL (0.2-1.0) Aspartate Amino Transf (AST/SGOT) 32 U/L (15-37) Alanine Aminotransferase (ALT/SGPT) 49 U/L (12-78) Alkaline Phosphatase 88 U/L (46-116) Total Protein 6.2 G/DL (6.4-8.2) L Albumin 2.1 G/DL (3.4-5.0) L Globulin 4.1 g/dL Albumin/Globulin Ratio 0.5 (1.0-2.7) L Arterial Blood pH 7.311 (7.350-7.450) 7.315 (7.350-7.450) Arterial Blood Partial Pressure CO2 55.9 mmHg (35.0-45.0) *H 62.0 mmHg (35.0-45.0) *H Arterial Blood Partial Pressure O2 47.6 mmHg (75.0-100.0) 64.6 mmHg (75.0-100.0) L Arterial Blood HCO3 27.6 mmol/L (22.0-26.0) H 30.9 mmol/L (22.0-26.0) H Arterial Blood Oxygen Saturation 81.0 % (95-100) *L 91.4 % (95-100) L Arterial Blood Base Excess 0.3 (-2-2) 3.1 (-2-2) H Keith Test Positive Positive Vancomycin Level Trough 20.6 ug/mL (5.0-12.0) H Test 03/20/20 13:55 Arterial Blood pH 7.422 (7.350-7.450) Arterial Blood Partial Pressure CO2 48.9 mmHg (35.0-45.0) H Arterial Blood Partial Pressure O2 48.8 mmHg (75.0-100.0) Arterial Blood HCO3 31.1 mmol/L (22.0-26.0) H Arterial Blood Oxygen Saturation 86.8 % (95-100) *L Arterial Blood Base Excess 5.6 (-2-2) H Keith Test Pending Plan Problems: (1) Malnutrition Assessment & Plan: not eating enough TF started adv as tolerated bowel regimen DDAILY ESTIMATED NEEDS: Needs based on Wound, pulmonary / 56kg 25-35 kcals/kg 9011-5361 total kcals 1.25-1.8 g protein/kg 70-100 g total protein 25-30 mL/kg 4285-4024 total fluid mLs NUTRITION DIAGNOSIS: * Swallowing difficulty R/T dysphagia as evidenced by HELPDESK ADMINISTRATOR w/ rec for NPO, now on NGT feeds. * Increased kcal/prot/micronutrients needs R/T wound healing as evidenced by pt admitted w/ multiple wounds including full thickness wound @ sacrum, TPI wound @ L Gluteal cheek, and non-Blanchable erythema @ BL heels. CURRENT TF:Jevity 1.2 @30ml/hr ENTERAL NUTRITION RECOMMENDATIONS: JEVITY 1.2 goal of 55ml/hr x24 hrs to provide 1320ml, 1584 kcal, 73g pro, 1065ml free H2O - rec to INCREASE current TF as tolerated to goal of 55ml/hr to better meet est needs. - flush per , HOB over 30 degrees ADDITIONAL RECOMMENDATIONS: * Per SNF: HT=66" UZ=964eni (03/07/20) * Wound healing: continue MVI, Vit C, and ZnSO4 * VIA NGT-> add TONI BID for wound care TF recs as above * Monitor lytes, replete as needed THIS 60 Y.O.M. WAS ADMITTED WITH ACUTE ISSUES - FEVER, HYPOXIC WITH LOW 02 SATS ON NON-REBREATHER, RESP RATE 18 BPM INITIALLY PER MEDICAL RECORD. PER RN, THE PATIENT HAD A RAPID RESPOSE THIS MORNING (DESAT TO 90S AND RAPID RESP RATE). H/O COPD, CARDIAC DZ, HYPOTHYROIDISM, HTN, ALLERGIC RHINITIS, SCHIZOPHRENIA (ON OLANZAPINE AT SNF), BASELINE NONVERBAL. PER POLST FULL TX BUT NO INFORMATION REGARDING TUBE FEEDING PREFERENCES. AT SNF ON A REGULAR DIET TEXTURE AND THIN LIQUIDS WITH PROSTAT SF DRINK WITH MEALS. NOW ON A REGULAR TEXTURE DIET AND THIN LIQUIDS BUT DID NOT TAKE ANY PO. PER LAURIE EARLY, THE PT UNABLE TO TAKE LARGE PILLS BUT APPEARED TO TOLERATE CRUSHED MEDS WITH APPLESAUCE W/O OVERT ASPIRATION. PATIENT SEEN WITH RTFUNMI. PER RT RESP RATE 22 BPM AND NOT ABLE TO ongoing unintelligible confabulations. Patient did request a sandwich, however, not appropriate for regular texture at this time. VITALS ON 2 L NASAL CANNULA: HR: 73; RR: 20; SP02: 95% Patient's oral hygiene is improving, ongoing poor speech intelligibility which appears to be more due to poor articulation precision/oral motor coordination versus 2/2 dry mouth. CXR on 03/14/20: Findings: Interim considerable improvement of previously demonstrated left lower lobe infiltrate. There is a residual disease in the retrocardiac region as well as generalized reticular interstitial opacities throughout the left mid and lower lung. There is questionably a 3 cm spiculated opacity projected over the apex. Minimal right mid and lower lung reticular opacities are also demonstrated. There is some right midlung atelectasis versus thickening of the minor fissure. The heart size is normal. The pleural spaces are clear Impression: Considerable improvement the persistence of previously demonstrated left mid and lower lung infiltrates, since prior study of 03/11/2020. HELPDESK ADMINISTRATOR plans to continue to f/u and monitor Patients readiness for PO trials for diet texture upgrade. RN aware of recommendations, plan, and aspiration precautions sign posted above Patients HOB. RECOMMENDATIONS: 1. Continue Moist Puree with [place] Thick Liquids Diet via 1 to 1 careful handfeeding while implementing posted aspiration precautions - RD recommendations appreciated for diet texture/type 2. Patient requires oral hygiene BID + lip moisturizer. (2) Decubitus skin ulcer Assessment & Plan: Pt presented on admission with multiple pressure injuries. Full thickness Pressure injury Sacrococcygeal area. (L)4cm x (W)2.5cm. Base of wound is fatou with scattered slough ,which was easily removed with gentle friction. Wound is now fatou with 25% soft necrosis at distal base of wound. Small amt sanguineous exudate noted.No odor noted. Periwound erythematous and denuded. Two additional Pressure Injuries noted to R gluteal cheek.(Proximal) Base of wound is purple and indurated(L)3cm x (W)1.5cm. Surrounding erythematous and denuded skin (Distal) R gluteus(L)1.4cm x (W)0.6cm. Base of wound is purple, indurated with surrounding erythematous and denuded skin. DTPI L Gluteal cheek (L)1.5cm x (W)1.3cm. Base of wound is indurated, purple with surrounding non-blanching erythema. Additional scattered areas that are maroon in colour noted to L gluteal cheek. Lateral L Heel boggy with non-blanching erythema with delineated margins. (L) 4cm x (W)4.5cm. Lateral R Heel Boggy with non-Blanchable erythema with delineated margins(L) 2.5cm x (W)2.5cm. Tx.Plan: Cleanse Sacrococcygeal area with saline. Apply TheraHoney , Apply Moisture Barrier Paste to Sacrum, R and L Buttocks. Cover entire Area with Optifoam drsgs. Change every 3 days and prn. Apply Moisture Barrier Paste to R and L Buttocks . Cover with Optifoam drsgs. Changee very 3 days and prn. Apply Cavilon Skin Barrier to R and L Trochanteric areas. Cover with Optifoam drsg. Change every 7 days and prn. Apply Cavilon Skin Barrier to R and L Heels. Cover each heel with Optifoam drsg. Change every 7 days and prn. Reposition at least every 2hours or as tolerated. Off-load heels with Pillow. APM/ERIK Mattress. (3) Pneumonia Assessment & Plan: Lungs: There is mild left lower lobe infiltrate consistent with pneumonia. Pleural space: Unremarkable. No pneumothorax. Heart: The heart size is at the upper limits of normal. Mediastinum: Unremarkable. Bones/joints: Unremarkable. IMPRESSION: There is mild left lower lobe infiltrate consistent with pneumonia. worsening on bipap now will monitor closely may need intubation (4) COPD (chronic obstructive pulmonary disease) (5) Fever Eddie Perez Mar 20, 2020 15:40
--- NOTE | 2020-03-20 15:50 | NUR ---
NURSE NOTES: Dr Ledesma ordered to intubate the patient. ER doctor, Dr Gutierrez here to intubate the patient. Etomidate 20, Rocuronium 50 IV given as ordered by Dr Gutierrez before intubation. Patient was intubated at 1550. ETT 7.0/23cm at lip line. Will order STAT CXR and ABG in one hour as per protocol.
--- NOTE | 2020-03-20 15:58 | Emergency Room Report ---
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 [employer] CHIPS: No COVID-19 Screening: Negative COVID-19 Patient History Now: No Nursing Documentation-PMH Past Medical History Deferred: Pt Cognitively Impaired Past Medical History: Deferred Hx Cardiac Problems: Yes Hx Hypertension: Yes Hx COPD: Yes Hx Cancer: No Hx Gastrointestinal Problems: No Physical Exam Vital Signs Date Time Temp Pulse Resp B/P (MAP) Pulse Ox O2 Delivery O2 Flow Rate FiO2 03/16/20 08:00 69 03/16/20 08:00 97.7 19 138/84 (102) 97 03/16/20 09:00 Nasal Cannula 2.0 03/17/20 10:22 28 Procedures Intubation Intubation : Consent: Emergent Time of Intubation: 15:51 Intubation Method: orotracheal Tube Size (cm): 7.0 Medications: Etomidate, Rocuronium Breath Sounds after Intubation: equal Intubation Complications: no complications Post Intubation Xray: Yes Attempts: One Patient Tolerated: Well Complications: None Progress ET tube secured at 23 cm at the teeth. Medical Decision Making Diagnostic Impression: Primary Impression: COPD (chronic obstructive pulmonary disease) Qualified Codes: J44.9 - Chronic obstructive pulmonary disease, unspecified Additional Impression: Pneumonia Qualified Codes: J18.9 - Pneumonia, unspecified organism Last Vital Signs Date Time Temp Pulse Resp B/P (MAP) Pulse Ox O2 Delivery O2 Flow Rate FiO2 03/20/20 15:00 98.0 107 34 132/91 (105) 97 03/20/20 12:00 Bi-pap 03/20/20 11:59 60 03/20/20 04:00 6.0 Disposition: ADMITTED INPATIENT Condition: Serious Referrals: NON PHYSICIAN (PCP) Ravi Gutierrez MD Mar 20, 2020 15:58
--- NOTE | 2020-03-20 16:17 | NUR ---
CASE MANAGEMENT: REVIEW SI: COPD . PNA . INTUBATED T 97.9 HR 116 RR 36 BP 72/51 SAT 97% MECH VENT FIO2 100 WBC 14.8 ABG: PH 7.422 PCO2 48.9 PO2 48.8 HCO3 31.1 O2 SAT 86.8 IS: D5 w/KCl 20MEQ IVF @ 100ML/HR ZOSYN IV Q8HR VANCOMYCIN IV Q8HR HEPARIN SUBQ Q12HR ATROPINE 1MG NEEDED FOR HR <40 NGT FEEDING ICU STATUS DCP: PATIENT IS FROM [facility]
--- NOTE | 2020-03-20 16:30 | Diagnostic Imaging Report ---
Procedure: XRAY Chest 1v Reason for study: Endotracheal tube placement. Shortness of breath. Comparison films: 03/20/2020. FINDINGS: There is a new endotracheal tube in good position. NG tube remains in place. Left lung infiltrates and retrocardiac consolidation again noted. Minimal atelectasis right midlung is improved. Cardiac and mediastinal silhouette are within normal limits. There may be small left effusion. The bony thorax appear unremarkable. IMPRESSION: New endotracheal tube in good position. No significant change left lung airspace disease and possible small effusion
--- NOTE | 2020-03-20 16:49 | Diagnostic Imaging Report ---
Swallow Function Video CLINICAL HISTORY: Reason For Exam: DYSPHAGIA. COMPARISON: None FINDINGS: Video swallow is performed with patient's given various consistencies of barium and swallowing mechanism is evaluated under direct fluoroscopy. The patient demonstrates 10 fasciculation with poor bolus control. There is penetration but not jackie aspiration. Laryngeal residual demonstrated. Fluoroscopy time was 57.5 seconds and 4 images were obtained. Fluoroscopy dose is 0.09509 uGy*m2. Please see separate detailed notes from speech therapy. IMPRESSION: VIDEOFLUOROSCOPY FOR SPEECH EVALUATION PERFORMED. PLEASE SEE SEPARATE DETAILED NOTES SPEECH THERAPY.
--- NOTE | 2020-03-20 17:42 | NUR ---
NURSE NOTES: Called and left a message to Dr Blake regarding post intubation ABG result. Awaiting call back for new orders.
--- NOTE | 2020-03-20 18:05 | NUR ---
NURSE NOTES: Dr Blake called back and ordered to keep the current vent setting and keep O2 sat > 92%. Notified RT.
--- NOTE | 2020-03-20 19:19 | NUR ---
HAND-OFF: Report given to SHARATH Xiong.
--- NOTE | 2020-03-20 20:00 | NUR ---
NURSE NOTES: received report from kim rn pt orally intubated -vent o2sat 94-97 % lethargic bp79-84/40-64 dr bee was notify with order made
[2020-03-20] MEDS ORDERED: Sodium Chloride 550 ML IVPB ONE (20:30)
[2020-03-20] MEDS: Vancomycin 1 GM in NS 275 ML IVPB SCH (21:56)
[2020-03-21] VITALS (44 sets, daily range): BP systolic 76–133; BP diastolic 46–84
--- NOTE | 2020-03-21 | NUR ---
NURSE NOTES: dr bethea was notify bp 79-84/40 with order made ns 1000cc 250/hr
--- NOTE | 2020-03-21 01:00 | Consultation ---
DATE OF CONSULTATION: 03/20/2020 PULMONARY CONSULTATION CONSULTING PHYSICIAN: Javier Blake MD REASON FOR CONSULTATION: Respiratory insufficiency and left lung disease. HISTORY OF PRESENT ILLNESS: This is a 60-year-old female, admitted sometime back. The patient has been in since 03/12/2020. The patient's care was discussed and reviewed. The patient has a history of COPD and hypothyroidism. The patient [facility] and now admitted for shortness of breath. Care was discussed and reviewed. The patient has with increasing hypoxemia and abnormal x-ray. The patient had a swab, negative for COVID. The patient has been seen by Infectious Diseases as well and she is currently on antibiotics as outlined. Patient transferred to ICU due to worsening respiratory distress and now intubated PAST MEDICAL HISTORY: Notable for COPD, hypothyroidism, and schizophrenia. MEDICATIONS: Reviewed and reconciled. ALLERGIES: Reviewed and reconciled. SOCIAL HISTORY: [facility] patient. Nonsmoker and nondrinker at present. REVIEW OF SYSTEMS: Difficult to obtain. PHYSICAL EXAMINATION: GENERAL: An ill-appearing female. on Vent VITAL SIGNS: Reviewed. Temperature 98, heart rate 107, respiratory rate 34, blood pressure 132/81, saturation 82%. Patient has been on BiPAP. HEENT: Negative. NECK: Supple. No adenopathy. The patient with no significant jugular venous distention. LUNGS: Coarse breath sounds. Moderate air entry. ETT in place CARDIAC: S1, S2. Regular rate and rhythm without murmur. ABDOMEN: Soft, nontender, nondistended. EXTREMITIES: No cyanosis, clubbing, or edema. LABORATORY DATA: Otherwise reviewed. White cell count 14.8, hematocrit 37, platelets 371. Chemistries noted and reviewed. Fairly negative electrolytes. Albumin is 2.1. X-rays with noted infiltrate. IMPRESSION: 1. COPD without any clear exacerbation. 2. Respiratory insufficiency. 3. Pneumonia, likely halfway acquired. 4. Hypothyroidism. 5. History of allergies. 6. Severe protein-calorie malnutrition. 7. Mild leukocytosis. 8. acute respiratory failure RECOMMENDATIONS: Supportive care. ventilator management and monitor acid base. We will follow clinically. Recommend followup of arterial blood gases and assess further for any changes. At present, acid-base appeared to be adequate. We will monitor clinically and adjust vent. Follow up x-ray closely for further changes. Obtain venous ultrasound to further evaluate any DVT and provide further intervention if needed. At present, the patient is on DVT prophylaxis. The patient is critical. We will follow for changes in respiratory deterioration. Javier Blake M.D. DR: WANDA JOB#: [id number] CC: BETO
--- NOTE | 2020-03-21 02:00 | NUR ---
NURSE NOTES: sbp 90-100 reposition and suction
[2020-03-21] MEDS: D5W w/KCl 20mEq 1,000 ML IV SCH ×3 (03:03→21:24)
--- NOTE | 2020-03-21 04:00 | NUR ---
NURSE NOTES: complete bed bath and oral care done
[2020-03-21 05:06] LABS: HEMATOCRIT 34.3 % (37.0-47.0); HEMOGLOBIN 10.7 G/DL (12.0-16.0); MEAN CORPUSCULAR VOLUME 99 FL (80-99); PLATELET COUNT 335 K/UL (150-450); RED BLOOD COUNT 3.46 M/UL (4.20-5.40)
[2020-03-21 05:32] LABS: WHITE BLOOD COUNT 31.1 K/UL (4.8-10.8)
[2020-03-21 05:38] LABS: ALANINE AMINOTRANSFERASE 47 U/L (12-78); ALBUMIN 1.8 G/DL (3.4-5.0); ALBUMIN/GLOBULIN RATIO 0.5 (1.0-2.7); ALKALINE PHOSPHATASE 89 U/L (46-116); ANION GAP 6 mmol/L (5-15); ASPARTATE AMINO TRANSFERASE 36 U/L (15-37); BILIRUBIN,TOTAL 0.2 MG/DL (0.2-1.0); BLOOD UREA NITROGEN 8 mg/dL (7-18); CARBON DIOXIDE 28 MMOL/L (21-32); CHLORIDE 103 MMOL/L (98-107); CREATININE 0.9 MG/DL (0.55-1.30); POTASSIUM 3.6 MMOL/L (3.5-5.1); SODIUM 137 MMOL/L (136-145)
[2020-03-21] MEDS: Piperacillin/Tazobactam 3.375 GM in NS 110 ML IVPB SCH ×3 (05:38→21:25)
[2020-03-21] MEDS: Albuterol 90mcg Inhaler 8gm INH SCH ×5 (07:05→22:49)
--- NOTE | 2020-03-21 07:30 | NUR ---
NURSE NOTES: Received report from SHARATH Xiong. Observed patient in bed, opens eyes to verbal stimuli but does not follow commands at this time. Bilateral pupils are reactive to light, sluggish. Patient is orally intubated with ETT 7.0 at 23cm on the lip line with vent settings AC 14, TV 500, FiO2 60% and PEEP 5. Patient is saturating 97% at this time, no s/s of respiratory distress noted. Bilateral radial and dorsalis pedis pulses are palpable, strong. Patient has NGT on the left nares, TF on hold at this time per night RN d/t low bp and patient is on supine position. Patient has PIV on the right AC 20g, patent, asymptomatic, infusing D5W with 20mEq KCL at 100ml/hr. Patient also has PIV on left hand 25g. Patient's abdomen is slightly distended. Patient has Purewick in place for incontinence. No s/s of pain/discomfort at this time; bed is locked, alarmed, and in lowest position, side rails up x3, and call light within reach. Will continue to monitor and will continue plan of care.
--- NOTE | 2020-03-21 07:32 | NUR ---
HAND-OFF: Report given to truman pete using sbar.
--- NOTE | 2020-03-21 07:54 | NUR ---
NURSE NOTES: Dr Ledesma present at bedside, updated on patient's condition. Notified regarding patient's WBC. Ordered PICC line insertion for patient. Noted, will enter, and will carry out.
--- NOTE | 2020-03-21 07:57 | General Progress Note ---
Assessment/Plan Problem List: (1) COPD (chronic obstructive pulmonary disease) ICD Codes: J44.9 - Chronic obstructive pulmonary disease, unspecified SNOMED: 57318317 Qualifiers: Qualified Codes: J44.9 - Chronic obstructive pulmonary disease, unspecified (2) Pneumonia ICD Codes: J18.9 - Pneumonia, unspecified organism SNOMED: 728487158 Qualifiers: Qualified Codes: J18.9 - Pneumonia, unspecified organism (3) Fever ICD Codes: R50.9 - Fever, unspecified SNOMED: 509662136 Status: stable, progressing Assessment/Plan: vent resp rx iv abx follow up cultures monitor abg dc all sedation iv synthroid abx check duplex needs picc line. poor iv access. no family. anticipate need for pressors and multiple drips. picc line needed emergently Subjective ROS Limited/Unobtainable: No Constitutional: Reports: malaise, weakness HEENT: Reports: no symptoms Cardiovascular: Reports: no symptoms Respiratory: Reports: shortness of breath Gastrointestinal/Abdominal: Reports: difficulty swallowing Genitourinary: Reports: no symptoms Neurologic/Psychiatric: Reports: emotional problems Endocrine: Reports: no symptoms Hematologic/Lymphatic: Reports: no symptoms Allergies: Coded Allergies: PENICILLINS (Verified Allergy, Unknown, 03/11/20) All Systems: reviewed and negative except above Subjective intubated for resp distress. stable on the vent. poorly responsive. on ivf. low bp noted. poor iv access. wbc higher. Objective Last 24 Hour Vital Signs Date Time Temp Pulse Resp B/P (MAP) Pulse Ox O2 Delivery O2 Flow Rate FiO2 03/21/20 07:05 91 23 60 03/21/20 07:00 89 21 94/63 (73) 96 03/21/20 06:00 84 21 86/59 (68) 95 03/21/20 05:30 85 23 90/67 (75) 94 03/21/20 05:00 99 26 126/80 (95) 96 03/21/20 04:30 90 22 122/71 (88) 98 03/21/20 04:00 Mechanical Ventilator 03/21/20 04:00 65 03/21/20 04:00 98.0 88 15 113/65 (81) 98 03/21/20 04:00 84 03/21/20 04:00 Mechanical Ventilator 03/21/20 03:30 86 19 107/76 (86) 97 03/21/20 03:11 84 21 65 03/21/20 03:00 91 21 124/76 (92) 98 03/21/20 02:30 84 19 76/54 (61) 97 03/21/20 02:00 97 26 133/84 (100) 94 03/21/20 01:30 97 25 127/74 (91) 97 03/21/20 01:00 86 17 97/62 (74) 94 03/21/20 00:30 95 20 88/56 (67) 94 03/21/20 00:00 65 03/21/20 00:00 Mechanical Ventilator 03/21/20 00:00 99.0 88 21 84/55 (65) 93 03/21/20 00:00 84 03/20/20 23:30 88 21 88/56 (67) 95 03/20/20 23:06 81 21 65 03/20/20 23:00 94 20 93/64 (74) 96 03/20/20 22:30 94 21 88/60 (69) 94 03/20/20 22:00 98.6 97 22 97/64 (75) 92 03/20/20 21:30 90 19 91/60 (70) 96 03/20/20 21:00 92 21 98/67 (77) 92 03/20/20 20:30 90 21 90/53 (65) 93 03/20/20 20:00 65 03/20/20 20:00 90 03/20/20 20:00 99.0 89 20 92/66 (75) 95 03/20/20 20:00 Mechanical Ventilator 03/20/20 19:24 83 20 65 03/20/20 19:00 101 25 85/66 (72) 90 03/20/20 18:00 95 20 92/69 (77) 93 03/20/20 17:00 96 14 104/77 (86) 94 03/20/20 16:00 95 22 65 03/20/20 16:00 65 03/20/20 16:00 95 14 72/51 (58) 97 03/20/20 16:00 Mechanical Ventilator 03/20/20 15:50 Mechanical Ventilator 03/20/20 15:50 100 03/20/20 15:48 128 03/20/20 15:00 98.0 107 34 132/91 (105) 97 03/20/20 14:00 116 32 138/100 (113) 93 03/20/20 13:00 109 36 148/90 (109) 90 03/20/20 12:00 97.9 57 24 135/86 (102) 96 03/20/20 12:00 Bi-pap 03/20/20 11:59 60 03/20/20 11:25 73 03/20/20 11:19 69 29 95 65 03/20/20 11:18 89 23 94 60 03/20/20 11:00 65 26 125/72 (89) 97 03/20/20 10:00 73 23 104/64 (77) 92 03/20/20 09:32 94 Bi-Pap 60 03/20/20 09:32 89 23 94 60 03/20/20 09:20 60 03/20/20 09:00 94 21 119/104 (109) 92 03/20/20 08:00 97.9 60 21 148/103 (118) 98 03/20/20 08:00 Bi-pap Intake and Output 03/20/20 03/21/20 19:00 07:00 Intake Total 1275.833 ml 2740.000 ml Output Total 700 ml 1200 ml Balance 575.833 ml 1540.000 ml IV Total 1175.833 ml 2740.000 ml Other 100 ml Output Urine Total 700 ml 1200 ml # Bowel Movements 1 1 Laboratory Tests 03/20/20 08:10: Vancomycin Level Trough 20.6H 03/20/20 10:40: Arterial Blood pH 7.315L, Arterial Blood Partial Pressure CO2 62.0*H, Arterial Blood Partial Pressure O2 64.6L, Arterial Blood HCO3 30.9H, Arterial Blood Oxygen Saturation 91.4L, Arterial Blood Base Excess 3.1H, Keith Test Positive 03/20/20 13:55: Arterial Blood pH 7.422, Arterial Blood Partial Pressure CO2 48.9H, Arterial Blood Partial Pressure O2 48.8*L, Arterial Blood HCO3 31.1H, Arterial Blood Oxygen Saturation 86.8*L, Arterial Blood Base Excess 5.6H, Keith Test [Pending] 03/20/20 17:22: Arterial Blood pH 7.387, Arterial Blood Partial Pressure CO2 51.3H, Arterial Blood Partial Pressure O2 52.7L, Arterial Blood HCO3 30.1H, Arterial Blood Oxygen Saturation 88.6*L, Arterial Blood Base Excess 4H, Keith Test Positive 03/21/20 03:20: White Blood Count 31.1#*H, Red Blood Count 3.46L, Hemoglobin 10.7L, Hematocrit 34.3L, Mean Corpuscular Volume 99, Mean Corpuscular Hemoglobin 31.0, Mean Corpuscular Hemoglobin Concent 31.3L, Red Cell Distribution Width 14.0, Platelet Count 335, Mean Platelet Volume 9.3, Neutrophils (%) (Auto) , Lymphocytes (%) (Auto) , Monocytes (%) (Auto) , Eosinophils (%) (Auto) , Basophils (%) (Auto) , Neutrophils % (Manual) [Pending], Lymphocytes % (Manual) [Pending], Platelet Estimate [Pending], Platelet Morphology [Pending], Sodium Level 137, Potassium Level 3.6, Chloride Level 103, Carbon Dioxide Level 28, Anion Gap 6, Blood Urea Nitrogen 8, Creatinine 0.9, Estimat Glomerular Filtration Rate > 60, Glucose Level 108H, Calcium Level 8.0L, Total Bilirubin 0.2, Aspartate Amino Transf (AST/SGOT) 36, Alanine Aminotransferase (ALT/SGPT) 47, Alkaline Phosphatase 89, Total Protein 5.6L, Albumin 1.8L, Globulin 3.8, Albumin/Globulin Ratio 0.5L 03/21/20 04:00: Arterial Blood pH 7.410, Arterial Blood Partial Pressure CO2 42.0, Arterial Blood Partial Pressure O2 66.8L, Arterial Blood HCO3 26.0, Arterial Blood Oxygen Saturation 93.3L, Arterial Blood Base Excess 1.2, Keith Test Positive Height (Feet): 5 Height (Inches): 5.00 Weight (Pounds): 112 Objective General Appearance: WD/WN, lethargic. intubated Neck: non-tender Cardiovascular: normal rate, regular rhythm Respiratory/Chest: chest wall non-tender, lungs clear, normal breath sounds Abdomen: normal bowel sounds, non tender, soft, no organomegaly Edema: no edema noted Arm (L), no edema noted Arm (R), no edema noted Leg (L), no edema noted Leg (R), no edema noted Pedal (L), no edema noted Pedal (R), no edema noted Generalized Neurologic: alert Isaak Ledesma MD Mar 21, 2020 07:57
[2020-03-21] MEDS: Heparin 5000 units/ml inj SUBQ SCH ×2 (07:58→21:16)
[2020-03-21] MEDS ORDERED: Heparin1,000 units/500ml Premix(Conc:2 units/ml) IV PRN (08:00)
[2020-03-21] MEDS ORDERED: Lidocaine 1% Plain 30 ml INJ PRN (08:00)
--- NOTE | 2020-03-21 08:02 | NUR ---
RD ASSESSMENT & RECOMMENDATIONS SEE CARE ACTIVITY FOR COMPLETE ASSESSMENT DAILY ESTIMATED NEEDS: Needs based on Wound, Critical care / 56kg 25-30 kcals/kg 9250-2287 total kcals 1.25-2 g protein/kg 70-112 g total protein 25-30 mL/kg 6418-9043 total fluid mLs NUTRITION DIAGNOSIS: * Swallowing difficulty R/T dysphagia as evidenced by [employer] w/ rec for NPO, now on NGT feeds. * Increased kcal/prot/micronutrients needs R/T wound healing as evidenced by pt admitted w/ multiple wounds including full thickness wound @ sacrum, TPI wound @ L Gluteal cheek, and non-Blanchable erythema @ BL heels. CURRENT DIET:NPO CURRENT TF:Jevity 1.2 @30ml/hr- HELD ENTERAL NUTRITION RECOMMENDATIONS: VITAL 1.2 goal of 55ml/hr x24 hrs to provide 1320ml, 1584 kcal, 99g pro, 1071ml free H2O - Rec Tf change to VITAL 1.2 for critical care, start @rate of 25ml/hr for 6 hrs. Advance as tolerated 10ml/hr q4-6 hrs to gaol. - flush per MD, HOB over 30 degrees Trophic rate if not hemodynamically stable, 5-10ml/hr. ADDITIONAL RECOMMENDATIONS: * Per SNF: HT=66" IL=022txy (03/07/20) * Wound healing: continue MVI, Vit C, and ZnSO4 * VIA NGT-> add TONI BID for wound care TF recs as above * Monitor lytes, replete as needed -> Monitor BG, need for NISS w/ TF's
[2020-03-21] MEDS: Zinc Sulfate 220mg ORAL SCH (08:11)
[2020-03-21] MEDS: Multivitamin w/Minerals tab ORAL SCH (08:11)
[2020-03-21] MEDS: Ascorbic Acid 500mg tab ORAL SCH (08:11)
[2020-03-21] MEDS: Lactulose 20gm/30ml UDC ORAL SCH ×3 (08:12→17:26)
--- NOTE | 2020-03-21 08:30 | NUR ---
NURSE NOTES: Scheduled medications given to patient. HOB elevated to prevent aspiration. TF remains on hold, Dr Ledesma notified and aware. Lainez catheter inserted per Dr Tucker's order; used sterile technique, patient tolerated procedure well. Noted clear, yellow urine output, 1300ml. Dr Tucker notified. Oral care provided and suctioned patient via ETT, noted moderate amount of thick, yellow sputum. Turned and repositioned patient. No s/s of pain/distress at this time. Will continue to monitor.
--- NOTE | 2020-03-21 09:25 | NUR ---
RADIOLOGY DEPT, CHEST X-RAY DONE.P.DYE
[2020-03-21] MEDS: Vancomycin 1 GM in NS 275 ML IVPB SCH ×2 (09:41→21:14)
--- NOTE | 2020-03-21 09:47 | Critical Care Progress Note ---
Assessment/Plan Assessment/Plan IMPRESSION: 1. COPD without any clear exacerbation. 2. Respiratory insufficiency. 3. Pneumonia, likely alf acquired. 4. Hypothyroidism. 5. History of allergies. 6. Severe protein-calorie malnutrition. 7. Mild leukocytosis. 8. acute respiratory failure care noted IV antibiotics respiratory care Ventilatory support maintain meds DVT prophylaxis supportive care suction no wean for today oxygen therapy medications/laboratory data/nursing notes/ICU care reviewed in detail note reviewed and edited care discussed with RN and RT ICU time spent >40 minutes Critical Care - Subjective Interval Events: care noted on vent ICu care reviewed vital and flowsheets reviewed ROS Limited/Unobtainable: Yes Condition: critical EKG Rhythm: Sinus Rhythm I&O: Intake and Output 03/20/20 03/21/20 19:00 07:00 Intake Total 1275.833 ml 2740.000 ml Output Total 700 ml 1200 ml Balance 575.833 ml 1540.000 ml IV Total 1175.833 ml 2740.000 ml Other 100 ml Output Urine Total 700 ml 1200 ml # Bowel Movements 1 1 Critical Care - Objective ET-Tube: 7.0 ET Position: 23 Last 24 Hour Vital Signs Date Time Temp Pulse Resp B/P (MAP) Pulse Ox O2 Delivery O2 Flow Rate FiO2 03/21/20 09:00 80 19 111/64 (80) 100 03/21/20 08:30 Mechanical Ventilator 03/21/20 08:00 Mechanical Ventilator 03/21/20 08:00 98.1 80 19 102/72 (82) 95 03/21/20 07:05 91 23 60 03/21/20 07:00 89 21 94/63 (73) 96 03/21/20 06:00 84 21 86/59 (68) 95 03/21/20 05:30 85 23 90/67 (75) 94 03/21/20 05:00 99 26 126/80 (95) 96 03/21/20 04:30 90 22 122/71 (88) 98 03/21/20 04:00 Mechanical Ventilator 03/21/20 04:00 65 03/21/20 04:00 98.0 88 15 113/65 (81) 98 03/21/20 04:00 84 03/21/20 04:00 Mechanical Ventilator 03/21/20 03:30 86 19 107/76 (86) 97 03/21/20 03:11 84 21 65 6/17/20 03:00 91 21 124/76 (92) 98 03/21/20 02:30 84 19 76/54 (61) 97 03/21/20 02:00 97 26 133/84 (100) 94 03/21/20 01:30 97 25 127/74 (91) 97 03/21/20 01:00 86 17 97/62 (74) 94 03/21/20 00:30 95 20 88/56 (67) 94 03/21/20 00:00 65 03/21/20 00:00 Mechanical Ventilator 03/21/20 00:00 99.0 88 21 84/55 (65) 93 03/21/20 00:00 84 03/20/20 23:30 88 21 88/56 (67) 95 03/20/20 23:06 81 21 65 03/20/20 23:00 94 20 93/64 (74) 96 03/20/20 22:30 94 21 88/60 (69) 94 03/20/20 22:00 98.6 97 22 97/64 (75) 92 03/20/20 21:30 90 19 91/60 (70) 96 03/20/20 21:00 92 21 98/67 (77) 92 03/20/20 20:30 90 21 90/53 (65) 93 03/20/20 20:00 65 03/20/20 20:00 90 03/20/20 20:00 99.0 89 20 92/66 (75) 95 03/20/20 20:00 Mechanical Ventilator 03/20/20 19:24 83 20 65 03/20/20 19:00 101 25 85/66 (72) 90 03/20/20 18:00 95 20 92/69 (77) 93 03/20/20 17:00 96 14 104/77 (86) 94 03/20/20 16:00 95 22 65 03/20/20 16:00 65 03/20/20 16:00 95 14 72/51 (58) 97 03/20/20 16:00 Mechanical Ventilator 03/20/20 15:50 Mechanical Ventilator 03/20/20 15:50 100 03/20/20 15:48 128 03/20/20 15:00 98.0 107 34 132/91 (105) 97 6/16/20 14:00 116 32 138/100 (113) 93 03/20/20 13:00 109 36 148/90 (109) 90 03/20/20 12:00 97.9 57 24 135/86 (102) 96 03/20/20 12:00 Bi-pap 03/20/20 11:59 60 03/20/20 11:25 73 03/20/20 11:19 69 29 95 65 03/20/20 11:18 89 23 94 60 03/20/20 11:00 65 26 125/72 (89) 97 03/20/20 10:00 73 23 104/64 (77) 92 Labs: Laboratory Tests Test 03/20/20 10:40 03/20/20 13:55 03/20/20 17:22 03/21/20 03:20 Arterial Blood pH 7.315 (7.350-7.450) 7.422 (7.350-7.450) 7.387 (7.350-7.450) Arterial Blood Partial Pressure CO2 62.0 mmHg (35.0-45.0) *H 48.9 mmHg (35.0-45.0) H 51.3 mmHg (35.0-45.0) H Arterial Blood Partial Pressure O2 64.6 mmHg (75.0-100.0) L 48.8 mmHg (75.0-100.0) 52.7 mmHg (75.0-100.0) L Arterial Blood HCO3 30.9 mmol/L (22.0-26.0) H 31.1 mmol/L (22.0-26.0) H 30.1 mmol/L (22.0-26.0) H Arterial Blood Oxygen Saturation 91.4 % (95-100) L 86.8 % (95-100) *L 88.6 % (95-100) *L Arterial Blood Base Excess 3.1 (-2-2) H 5.6 (-2-2) H 4 (-2-2) H Keith Test Positive Pending Positive White Blood Count 31.1 K/UL (4.8-10.8) #*H Red Blood Count 3.46 M/UL (4.20-5.40) L Hemoglobin 10.7 G/DL (12.0-16.0) L Hematocrit 34.3 % (37.0-47.0) L Mean Corpuscular Volume 99 FL (80-99) Mean Corpuscular Hemoglobin 31.0 PG (27.0-31.0) Mean Corpuscular Hemoglobin Concent 31.3 G/DL (32.0-36.0) L Red Cell Distribution Width 14.0 % (11.6-14.8) Platelet Count 335 K/UL (150-450) Mean Platelet Volume 9.3 FL (6.5-10.1) Neutrophils (%) (Auto) % (45.0-75.0) Lymphocytes (%) (Auto) % (20.0-45.0) Monocytes (%) (Auto) % (1.0-10.0) Eosinophils (%) (Auto) % (0.0-3.0) Basophils (%) (Auto) % (0.0-2.0) Neutrophils % (Manual) Pending Lymphocytes % (Manual) Pending Platelet Estimate Pending Platelet Morphology Pending Sodium Level 137 MMOL/L (136-145) Potassium Level 3.6 MMOL/L (3.5-5.1) Chloride Level 103 MMOL/L (98-107) Carbon Dioxide Level 28 MMOL/L (21-32) Anion Gap 6 mmol/L (5-15) Blood Urea Nitrogen 8 mg/dL (7-18) Creatinine 0.9 MG/DL (0.55-1.30) Estimat Glomerular Filtration Rate > 60 mL/min (>60) Glucose Level 108 MG/DL (74-106) H Calcium Level 8.0 MG/DL (8.5-10.1) L Total Bilirubin 0.2 MG/DL (0.2-1.0) Aspartate Amino Transf (AST/SGOT) 36 U/L (15-37) Alanine Aminotransferase (ALT/SGPT) 47 U/L (12-78) Alkaline Phosphatase 89 U/L (46-116) Total Protein 5.6 G/DL (6.4-8.2) L Albumin 1.8 G/DL (3.4-5.0) L Globulin 3.8 g/dL Albumin/Globulin Ratio 0.5 (1.0-2.7) L Test 03/21/20 04:00 Arterial Blood pH 7.410 (7.350-7.450) Arterial Blood Partial Pressure CO2 42.0 mmHg (35.0-45.0) Arterial Blood Partial Pressure O2 66.8 mmHg (75.0-100.0) L Arterial Blood HCO3 26.0 mmol/L (22.0-26.0) Arterial Blood Oxygen Saturation 93.3 % (95-100) L Arterial Blood Base Excess 1.2 (-2-2) Keith Test Positive Objective: GENERAL: An ill-appearing female. on Vent NECK: Supple. No adenopathy. The patient with no significant jugular venous distention. LUNGS: Coarse breath sounds. Moderate air entry. ETT in place CARDIAC: S1, S2. Regular rate and rhythm without murmur. ABDOMEN: Soft, nontender, nondistended. EXTREMITIES: No cyanosis, clubbing, or edema. Javier Blake MD Mar 21, 2020 09:47
--- NOTE | 2020-03-21 10:00 | NUR ---
NURSE NOTES: Dr Blake present at bedside, seen patient, and updated on patient's condition. Notified venous duplex results negative. No new verbal orders received at this time. TF Jevity 1.2 resumed at 30ml/hr, HOB placed elevated to avoid aspiration. Lainez catheter remains draining to gravity, sediments noted on the urine. D5W with 20KCl remains at 100ml/hr infusing on the right AC. No s/s of distress at this time, will continue to monitor.
--- NOTE | 2020-03-21 10:02 | NUR ---
SOCK KNITTING MACHINE OPERATOR NOTE DISCONTINUE ORDERS SOCK KNITTING MACHINE OPERATOR planned to see Patient today for re-attempt at SOCK KNITTING MACHINE OPERATOR Bedside Swallow Evaluation, orders received from Dr. Ledesma. Chart reviewed, and SOCK KNITTING MACHINE OPERATOR spoke with charge lpn to verify Patient's current medical status. Patient is now orally intubated, event transpired in the afternoon of 03/20/20; therefore, not appropriate for bedside swallow evaluation. Given Patient's critical medical condition, discontinue SOCK KNITTING MACHINE OPERATOR bedside swallow evaluation orders, please re-refer Patient to SOCK KNITTING MACHINE OPERATOR when Patient is out of ICU, extubated, tolerating low-flow oxygen delivery, and medically appropriate per MD. Please see formal SOCK KNITTING MACHINE OPERATOR discharge summary/note in the care activity section. Thank you for this referral! SOCK KNITTING MACHINE OPERATOR [phone]
--- NOTE | 2020-03-21 10:23 | Diagnostic Imaging Report ---
Procedure: XRAY Chest 1v Reason for study: Reason For Exam: SOB Comparison films: 03/20/2020. FINDINGS: Endotracheal tube and NG tube remain in place. Vascularity is normal. Left retrocardiac opacity unchanged. Left upper lobe infiltrate is perhaps mildly improved. Diffuse interstitial densities stable. Cardiac and mediastinal silhouette are within normal limits. CP angles are sharp. The bony thorax appear unremarkable. IMPRESSION: Mildly improved left upper lung infiltrates. Retrocardiac densities unchanged.
[2020-03-21] MEDS ORDERED: Varibar Thin Liquid powder 148gm MC PRN (10:30)
[2020-03-21] MEDS ORDERED: Varibar Honey 250ml MC PRN (10:30)
[2020-03-21] MEDS ORDERED: Varibar Pudding 230ml MC PRN (10:30)
[2020-03-21] MEDS ORDERED: Varibar Nectar 240ml MC PRN (10:30)
--- NOTE | 2020-03-21 10:33 | Diagnostic Imaging Report ---
EXAM: ULTRASOUND Venous Duplex Scan Jeffrey Leg CLINICAL HISTORY: Leg pain and edema. COMPARISON: None TECHNIQUE: Doppler examination include grayscale images obtained with and without compression, and color and spectral doppler analysis. FINDINGS: Doppler examination shows normal spontaneity, phasicity, compressibility in the bilateral lower extremities. There is no thrombus identified by grayscale. Normal color and spectral flow is identified. There is no evidence of valvular incompetency or insufficiency. IMPRESSION: UNREMARKABLE VENOUS DUPLEX.
--- NOTE | 2020-03-21 10:48 | NUR ---
CASE MANAGEMENT: REVIEW SI: COPD . PNA . INTUBATED . VENTILATOR SUPPORT T 99.0 HR 86 RR 21 BP 79/54 SAT 93% MECH VENT FIO2 65 WBC 31.1 H/H 10.7/34.3 GLUCOSE 108 IS: D5 w/KCl 20MEQ IVF @ 100ML/HR ZOSYN IV Q8HR VANCOMYCIN IV Q12HR HEPARIN SUBQ Q12HR ATROPINE 1MG NEEDED FOR HR <40 NGT FEEDING ICU STATUS DCP: PATIENT IS FROM [facility]
--- NOTE | 2020-03-21 12:00 | NUR ---
NURSE NOTES: Complete bed bath given to patient, accompanied by wound care nurse Joy for wound re-eval and treatment. NOted small, formed, brown BM; linens changed and placed clean gown. TF on hold at this time, placed pt on supine position. Patient is afebrile. No s/s of pain/distress noted, will continue to monitor.
--- NOTE | 2020-03-21 12:00 | NUR ---
NURSE NOTES: Patient's BP 80/46, rechecked 85/46. Notified Dr Ledesma, ordered to give bolus NS 500. Will enter and will carry out.
--- NOTE | 2020-03-21 12:19 | NUR ---
*-* INSURANCE *-* UPDATED CLINICALS AND REVIEWS HAVE BEEN FAXED TO: [facility] Ref# [id number] F: [phone]
--- NOTE | 2020-03-21 12:36 | NUR ---
NURSE NOTES: NS 500ml bolus infusing at this time, current BP 93/51. Will continue to monitor.
--- NOTE | 2020-03-21 12:46 | NUR ---
NURSE NOTES: NS 500ml bolus completed, BP 94/55. Radiology at bedside for PICC line insertion. Will continue to monitor.
--- NOTE | 2020-03-21 13:45 | Surgery Progress Note ---
Surgery Progress Note Subjective Additional Comments worse intubated on vent support cxr noted labs reviewed Objective Last 24 Hour Vital Signs Date Time Temp Pulse Resp B/P (MAP) Pulse Ox O2 Delivery O2 Flow Rate FiO2 03/21/20 13:00 69 20 99/50 (66) 100 03/21/20 12:07 77 19 85/46 (59) 100 03/21/20 12:00 98.0 79 19 80/46 (57) 99 03/21/20 12:00 60 03/21/20 12:00 Mechanical Ventilator 03/21/20 12:00 72 03/21/20 11:05 77 17 60 03/21/20 11:00 75 16 107/57 (74) 97 03/21/20 10:20 79 18 93/66 (75) 99 03/21/20 10:00 79 18 85/59 (68) 99 03/21/20 09:00 80 19 111/64 (80) 100 03/21/20 08:30 Mechanical Ventilator 03/21/20 08:00 Mechanical Ventilator 03/21/20 08:00 84 03/21/20 08:00 98.1 80 19 102/72 (82) 95 03/21/20 07:05 91 23 60 03/21/20 07:00 89 21 94/63 (73) 96 03/21/20 06:00 84 21 86/59 (68) 95 03/21/20 05:30 85 23 90/67 (75) 94 03/21/20 05:00 99 26 126/80 (95) 96 03/21/20 04:30 90 22 122/71 (88) 98 03/21/20 04:00 Mechanical Ventilator 03/21/20 04:00 65 03/21/20 04:00 98.0 88 15 113/65 (81) 98 03/21/20 04:00 84 03/21/20 04:00 Mechanical Ventilator 03/21/20 03:30 86 19 107/76 (86) 97 03/21/20 03:11 84 21 65 03/21/20 03:00 91 21 124/76 (92) 98 03/21/20 02:30 84 19 76/54 (61) 97 03/21/20 02:00 97 26 133/84 (100) 94 03/21/20 01:30 97 25 127/74 (91) 97 03/21/20 01:00 86 17 97/62 (74) 94 03/21/20 00:30 95 20 88/56 (67) 94 03/21/20 00:00 65 03/21/20 00:00 Mechanical Ventilator 03/21/20 00:00 99.0 88 21 84/55 (65) 93 03/21/20 00:00 84 03/20/20 23:30 88 21 88/56 (67) 95 03/20/20 23:06 81 21 65 03/20/20 23:00 94 20 93/64 (74) 96 03/20/20 22:30 94 21 88/60 (69) 94 03/20/20 22:00 98.6 97 22 97/64 (75) 92 03/20/20 21:30 90 19 91/60 (70) 96 03/20/20 21:00 92 21 98/67 (77) 92 03/20/20 20:30 90 21 90/53 (65) 93 03/20/20 20:00 65 03/20/20 20:00 90 03/20/20 20:00 99.0 89 20 92/66 (75) 95 03/20/20 20:00 Mechanical Ventilator 03/20/20 19:24 83 20 65 03/20/20 19:00 101 25 85/66 (72) 90 03/20/20 18:00 95 20 92/69 (77) 93 03/20/20 17:00 96 14 104/77 (86) 94 03/20/20 16:00 95 22 65 03/20/20 16:00 65 03/20/20 16:00 95 14 72/51 (58) 97 03/20/20 16:00 Mechanical Ventilator 03/20/20 15:50 Mechanical Ventilator 03/20/20 15:50 100 03/20/20 15:48 128 03/20/20 15:00 98.0 107 34 132/91 (105) 97 03/20/20 14:00 116 32 138/100 (113) 93 I&O Intake and Output 03/20/20 03/21/20 19:00 07:00 Intake Total 1275.833 ml 2740.000 ml Output Total 700 ml 1200 ml Balance 575.833 ml 1540.000 ml IV Total 1175.833 ml 2740.000 ml Other 100 ml Output Urine Total 700 ml 1200 ml # Bowel Movements 1 1 Dressing: other Wound: other Drains: other Cardiovascular: RSR Respiratory: decreased breath sounds Abdomen: soft, non-tender, present bowel sounds Extremities: no cyanosis, other Laboratory Tests Test 03/20/20 13:55 03/20/20 17:22 03/21/20 03:20 03/21/20 04:00 Arterial Blood pH 7.422 (7.350-7.450) 7.387 (7.350-7.450) 7.410 (7.350-7.450) Arterial Blood Partial Pressure CO2 48.9 mmHg (35.0-45.0) H 51.3 mmHg (35.0-45.0) H 42.0 mmHg (35.0-45.0) Arterial Blood Partial Pressure O2 48.8 mmHg (75.0-100.0) 52.7 mmHg (75.0-100.0) L 66.8 mmHg (75.0-100.0) L Arterial Blood HCO3 31.1 mmol/L (22.0-26.0) H 30.1 mmol/L (22.0-26.0) H 26.0 mmol/L (22.0-26.0) Arterial Blood Oxygen Saturation 86.8 % (95-100) *L 88.6 % (95-100) *L 93.3 % (95-100) L Arterial Blood Base Excess 5.6 (-2-2) H 4 (-2-2) H 1.2 (-2-2) Keith Test Pending Positive Positive White Blood Count 31.1 K/UL (4.8-10.8) #*H Red Blood Count 3.46 M/UL (4.20-5.40) L Hemoglobin 10.7 G/DL (12.0-16.0) L Hematocrit 34.3 % (37.0-47.0) L Mean Corpuscular Volume 99 FL (80-99) Mean Corpuscular Hemoglobin 31.0 PG (27.0-31.0) Mean Corpuscular Hemoglobin Concent 31.3 G/DL (32.0-36.0) L Red Cell Distribution Width 14.0 % (11.6-14.8) Platelet Count 335 K/UL (150-450) Mean Platelet Volume 9.3 FL (6.5-10.1) Neutrophils (%) (Auto) % (45.0-75.0) Lymphocytes (%) (Auto) % (20.0-45.0) Monocytes (%) (Auto) % (1.0-10.0) Eosinophils (%) (Auto) % (0.0-3.0) Basophils (%) (Auto) % (0.0-2.0) Differential Total Cells Counted 100 Neutrophils % (Manual) 92 % (45-75) H Lymphocytes % (Manual) 5 % (20-45) L Monocytes % (Manual) 3 % (1-10) Eosinophils % (Manual) 0 % (0-3) Basophils % (Manual) 0 % (0-2) Band Neutrophils 0 % (0-8) Platelet Estimate Adequate Platelet Morphology Normal Anisocytosis 1+ Sodium Level 137 MMOL/L (136-145) Potassium Level 3.6 MMOL/L (3.5-5.1) Chloride Level 103 MMOL/L (98-107) Carbon Dioxide Level 28 MMOL/L (21-32) Anion Gap 6 mmol/L (5-15) Blood Urea Nitrogen 8 mg/dL (7-18) Creatinine 0.9 MG/DL (0.55-1.30) Estimat Glomerular Filtration Rate > 60 mL/min (>60) Glucose Level 108 MG/DL (74-106) H Calcium Level 8.0 MG/DL (8.5-10.1) L Total Bilirubin 0.2 MG/DL (0.2-1.0) Aspartate Amino Transf (AST/SGOT) 36 U/L (15-37) Alanine Aminotransferase (ALT/SGPT) 47 U/L (12-78) Alkaline Phosphatase 89 U/L (46-116) Total Protein 5.6 G/DL (6.4-8.2) L Albumin 1.8 G/DL (3.4-5.0) L Globulin 3.8 g/dL Albumin/Globulin Ratio 0.5 (1.0-2.7) L Plan Problems: (1) Malnutrition Assessment & Plan: not eating enough TF started adv as tolerated bowel regimen DDAILY ESTIMATED NEEDS: Needs based on Wound, pulmonary / 56kg 25-35 kcals/kg 0954-8729 total kcals 1.25-1.8 g protein/kg 70-100 g total protein 25-30 mL/kg 4727-4486 total fluid mLs NUTRITION DIAGNOSIS: * Swallowing difficulty R/T dysphagia as evidenced by VIDEO GAME SCRIPT WRITER w/ rec for NPO, now on NGT feeds. * Increased kcal/prot/micronutrients needs R/T wound healing as evidenced by pt admitted w/ multiple wounds including full thickness wound @ sacrum, TPI wound @ L Gluteal cheek, and non-Blanchable erythema @ BL heels. CURRENT TF:Jevity 1.2 @30ml/hr ENTERAL NUTRITION RECOMMENDATIONS: JEVITY 1.2 goal of 55ml/hr x24 hrs to provide 1320ml, 1584 kcal, 73g pro, 1065ml free H2O - rec to INCREASE current TF as tolerated to goal of 55ml/hr to better meet est needs. - flush per CHRISTINA JONES over 30 degrees ADDITIONAL RECOMMENDATIONS: * Per SNF: HT=66" SV=665pub (03/07/20) * Wound healing: continue MVI, Vit C, and ZnSO4 * VIA NGT-> add TONI BID for wound care TF recs as above * Monitor lytes, replete as needed THIS 60 Y.O.M. WAS ADMITTED WITH ACUTE ISSUES - FEVER, HYPOXIC WITH LOW 02 SATS ON NON-REBREATHER, RESP RATE 18 BPM INITIALLY PER MEDICAL RECORD. PER RN, THE PATIENT HAD A RAPID RESPOSE THIS MORNING (DESAT TO 90S AND RAPID RESP RATE). H/O COPD, CARDIAC DZ, HYPOTHYROIDISM, HTN, ALLERGIC RHINITIS, SCHIZOPHRENIA (ON OLANZAPINE AT SNF), BASELINE NONVERBAL. PER POLST FULL TX BUT NO INFORMATION REGARDING TUBE FEEDING PREFERENCES. AT SNF ON A REGULAR DIET TEXTURE AND THIN LIQUIDS WITH PROSTAT SF DRINK WITH MEALS. NOW ON A REGULAR TEXTURE DIET AND THIN LIQUIDS BUT DID NOT TAKE ANY PO. PER LAURIE EARLY, THE PT UNABLE TO TAKE LARGE PILLS BUT APPEARED TO TOLERATE CRUSHED MEDS WITH APPLESAUCE W/O OVERT ASPIRATION. PATIENT SEEN WITH FUNMI HEATH. PER RT RESP RATE 22 BPM AND NOT ABLE TO ongoing unintelligible confabulations. Patient did request a sandwich, however, not appropriate for regular texture at this time. VITALS ON 2 L NASAL CANNULA: HR: 73; RR: 20; SP02: 95% Patient's oral hygiene is improving, ongoing poor speech intelligibility which appears to be more due to poor articulation precision/oral motor coordination versus 2/2 dry mouth. CXR on 03/14/20: Findings: Interim considerable improvement of previously demonstrated left lower lobe infiltrate. There is a residual disease in the retrocardiac region as well as generalized reticular interstitial opacities throughout the left mid and lower lung. There is questionably a 3 cm spiculated opacity projected over the apex. Minimal right mid and lower lung reticular opacities are also demonstrated. There is some right midlung atelectasis versus thickening of the minor fissure. The heart size is normal. The pleural spaces are clear Impression: Considerable improvement the persistence of previously demonstrated left mid and lower lung infiltrates, since prior study of 03/11/2020. VIDEO GAME SCRIPT WRITER plans to continue to f/u and monitor Patients readiness for PO trials for diet texture upgrade. RN aware of recommendations, plan, and aspiration precautions sign posted above Patients HOB. RECOMMENDATIONS: 1. Continue Moist Puree with [place] Thick Liquids Diet via 1 to 1 careful handfeeding while implementing posted aspiration precautions - RD recommendations appreciated for diet texture/type 2. Patient requires oral hygiene BID + lip moisturizer. (2) Decubitus skin ulcer Assessment & Plan: Pt presented on admission with multiple pressure injuries. Full thickness Pressure injury Sacrococcygeal area. (L)4cm x (W)2.5cm. Base of wound is fatou with scattered slough ,which was easily removed with gentle friction. Wound is now fatou with 25% soft necrosis at distal base of wound. Small amt sanguineous exudate noted.No odor noted. Periwound erythematous and denuded. Two additional Pressure Injuries noted to R gluteal cheek.(Proximal) Base of wound is purple and indurated(L)3cm x (W)1.5cm. Surrounding erythematous and denuded skin (Distal) R gluteus(L)1.4cm x (W)0.6cm. Base of wound is purple, indurated with surrounding erythematous and denuded skin. DTPI L Gluteal cheek (L)1.5cm x (W)1.3cm. Base of wound is indurated, purple with surrounding non-blanching erythema. Additional scattered areas that are maroon in colour noted to L gluteal cheek. Lateral L Heel boggy with non-blanching erythema with delineated margins. (L) 4cm x (W)4.5cm. Lateral R Heel Boggy with non-Blanchable erythema with delineated margins(L) 2.5cm x (W)2.5cm. Tx.Plan: Cleanse Sacrococcygeal area with saline. Apply TheraHoney , Apply Moisture Barrier Paste to Sacrum, R and L Buttocks. Cover entire Area with Optifoam drsgs. Change every 3 days and prn. Apply Moisture Barrier Paste to R and L Buttocks . Cover with Optifoam drsgs. Changee very 3 days and prn. Apply Cavilon Skin Barrier to R and L Trochanteric areas. Cover with Optifoam drsg. Change every 7 days and prn. Apply Cavilon Skin Barrier to R and L Heels. Cover each heel with Optifoam drsg. Change every 7 days and prn. Reposition at least every 2hours or as tolerated. Off-load heels with Pillow. APM/ERIK Mattress. (3) Pneumonia Assessment & Plan: Lungs: There is mild left lower lobe infiltrate consistent with pneumonia. Pleural space: Unremarkable. No pneumothorax. Heart: The heart size is at the upper limits of normal. Mediastinum: Unremarkable. Bones/joints: Unremarkable. IMPRESSION: There is mild left lower lobe infiltrate consistent with pneumonia. worsening on bipap now will monitor closely intubated now 03/21 wean vent (4) COPD (chronic obstructive pulmonary disease) (5) Fever Eddie Perez Mar 21, 2020 13:45
--- NOTE | 2020-03-21 14:00 | NUR ---
NURSE NOTES: Radiology still at bedside for PICC line insertion. Patient remains orally intubated, tolerating vent settings. Will continue to monitor.
--- NOTE | 2020-03-21 14:20 | NUR ---
NURSE NOTES: PICC line inserted on left upper arm by radiology, patient tolerated well; placement confirmed with xray. Received order OK to use PICC line. Levophed started at 2mcg/min. Will continue to monitor patient's BP q15min.
--- NOTE | 2020-03-21 14:31 | NUR ---
RADIOLOGY NOTE: LEFT UPPER EXTREMITY PICC LINE PLACED BY DR. AGUDELO AT 1330 HRS. FA
--- NOTE | 2020-03-21 15:03 | Pre-Procedure Note/Attestation ---
Pre-Procedure Note/Attestation Complete Prior to Procedure Planned Procedure: not applicable Procedure Narrative: PICC line Indications for Procedure Pre-Operative Diagnosis: need IV access Attestation Consent obtained by primary team , verified prior to PICC placement Perico Reynoso M.D. Mar 21, 2020 15:03
--- NOTE | 2020-03-21 15:09 | Diagnostic Imaging Report ---
Indications: Needs long-term IV access Technique: Procedure performed at bedside. Procedural timeout performed. Ultrasound confirms patent compressible vein. Total sterile technique, including sterile probe cover and sterile gel, sterile gloves, hand hygiene, hat, mask,, sterile gown, large sterile drape, and preparation with 2% chlorhexidine utilized. Local anesthesia with 1% lidocaine. Under real-time ultrasound guidance, puncture left facet vein using 21-gauge needle, passage 0.018 guidewire, exchange for 5 [place]ian peel-away sheath. 4French dual-lumen power PICC cut to 40 cm. It was inserted through the peel-away sheath. Peel-away sheath and guidewire removed. Catheter fixed to the skin. Both catheter ports aspirated and flushed. Patient tolerated procedure well, without immediate complication. Followup chest x-ray obtained, documents catheter tip position at the cavoatrial junction. Additional findings and chest x-ray unchanged compared to exam earlier today. There is no evidence of pneumothorax. Impression: Successful bedside placement of PICC under sonographic guidance, as described above. Catheter cleared for use.
--- NOTE | 2020-03-21 16:00 | NUR ---
NURSE NOTES: Patient in bed, lethargic. Remains orally intubated, tolerating vent settings, SpO2 100% at this time. TF resumed, Jevity 1.2 running at 15ml/hr, will increase as tolerated. Lainez catheter remains in place, draining to gravity. Patient is afebrile. No s/s of pain/discomfort. Will continue to monitor patient.
--- NOTE | 2020-03-21 18:00 | NUR ---
NURSE NOTES: Patient remains orally intubated, tolerating vent settings, SpO2 100% at this time. Suctioned via ETT with moderate amount of thick, yellow sputum noted. NGT on the left nares intact, patent, Jevity 1.2 infusing at 15ml/hr at this time. Will increase to goal as tolerated. Left upper arm PICC line intact, patent, asymptomatic; D5W with 20mEq KCL infusing at 100ml/hr, Levophed infusing at 2mcg/min. Right AC PIV intact. Lainez catheter draining to gravity. No BM noted at this time. Left patient clean and dry. No s/s of pain/distress. Will continue to monitor.
--- NOTE | 2020-03-21 18:56 | NUR ---
RESPIRATORY NOTE: Received pt on AC 14, 500VT, 60%, PEEP +5. Pt is intubated w/ ETT 7.0 @ 23cm lipline, secured by anchorfast. Pt is sedated. B/S torsten. diminished, sxn small amounts of thick/thin, pale-yellow secretions. Bite block in place as pt tends to bite ETT. Vent plugged into red outlet, ambubag at bedside. Pt in no apparent distress at this time. Will continue to monitor pt.
--- NOTE | 2020-03-21 19:00 | NUR ---
HAND-OFF: Report given to SHARATH Parish. Endorsed plan of care.
--- NOTE | 2020-03-21 19:16 | NUR ---
HAND-OFF: Report given to SHARATH Xiong. Endorsed plan of care.
--- NOTE | 2020-03-21 19:30 | NUR ---
NURSE NOTES: received pt with eyes close, currently bp 100/59, SR on the monitor , pt on levophed drip at 2mcg/min and D5W +20meq kcl at 100ml/hr. All IVF been infusing to pts YUMIKO PICC line, site with drsg dry and intact. Orally intubated on ac mode 02 sat 100%, Tolerating fdg at this time, jevity 1.2 at 15ml/hr. HOB kept elevated. on aspiration precaution. Will continue to monitor.
[2020-03-21] MEDS: Dyna-Hex 2% Top Sol 2oz TOPIC SCH (21:14)
--- NOTE | 2020-03-21 22:00 | NUR ---
NURSE NOTES: reposition and suction tolerating tube feeding no residual
[2020-03-22] VITALS (43 sets, daily range): BP systolic 88–159; BP diastolic 43–95
--- NOTE | 2020-03-22 | NUR ---
NURSE NOTES: no acute resp distress noted
--- NOTE | 2020-03-22 01:30 | Consultation ---
DATE OF CONSULTATION: 03/21/2020 GASTROENTEROLOGY CONSULTATION CONSULTING PHYSICIAN: Douglas Tucker MD. CHIEF COMPLAINT: I was asked to see this patient by Dr. Isaak Ledesma for evaluation of possible gastrostomy tube placement. HISTORY OF PRESENT ILLNESS: Patient is an unfortunate 60-year-old white woman with multiple medical problems who was admitted to the hospital and subsequently into the intensive care unit. She has had respiratory failure and now has required intubation and mechanical ventilation. Patient is unable to provide much history given her overall status and there is no family involved with her care. Patient has been negative for COVID testing on her swab. PAST MEDICAL HISTORY: History of COPD, hypothyroidism, schizophrenia, respiratory failure, dysphagia. FAMILY HISTORY: Not available. SOCIAL HISTORY: Patient resides in a correction and has had no recent history of smoking or drinking. REVIEW OF SYSTEMS: Otherwise negative. MEDICATIONS: Noted. PHYSICAL EXAMINATION: GENERAL: Debilitated white woman, seen in the intensive care unit. HEENT: Normocephalic, atraumatic. Endotracheal tube was in place. NECK: Supple. CHEST: Revealed coarse breath sounds. CARDIOVASCULAR: Revealed a regular rate. ABDOMEN: Soft, but when the which after placement of Lainez turned out to be a distended bladder draining about 1000 mL of urine. EXTREMITIES: No edema. LABORATORY DATA: Noted. ASSESSMENT: This patient has respiratory failure and now is on a ventilator. Should she become stabilized, then endoscopic gastrostomy tube will be placed to help with enteral nutrition. In the meantime, she can be fed via nasogastric tube till the pulmonary status optimized. Douglas Tucker M.D. DR: MARIAH JOB#: [id number] CC:
--- NOTE | 2020-03-22 02:00 | NUR ---
NURSE NOTES: SBP 105/60, still at 2 mcg/min of Levophed, monitor vital signs.
[2020-03-22] MEDS: Albuterol 90mcg Inhaler 8gm INH SCH ×6 (02:52→23:11)
--- NOTE | 2020-03-22 04:00 | NUR ---
NURSE NOTES: Complete bed bath with bed changed was done.
[2020-03-22 05:10] LABS: ALANINE AMINOTRANSFERASE 39 U/L (12-78); ALBUMIN 1.6 G/DL (3.4-5.0); ALBUMIN/GLOBULIN RATIO 0.4 (1.0-2.7); ALKALINE PHOSPHATASE 93 U/L (46-116); ANION GAP 5 mmol/L (5-15); ASPARTATE AMINO TRANSFERASE 30 U/L (15-37); BILIRUBIN,TOTAL 0.2 MG/DL (0.2-1.0); BLOOD UREA NITROGEN 3 mg/dL (7-18); CALCIUM 7.9 MG/DL (8.5-10.1); CARBON DIOXIDE 28 MMOL/L (21-32); CHLORIDE 100 MMOL/L (98-107); CREATININE 0.7 MG/DL (0.55-1.30); POTASSIUM 3.6 MMOL/L (3.5-5.1); SODIUM 133 MMOL/L (136-145)
[2020-03-22] MEDS: Piperacillin/Tazobactam 3.375 GM in NS 110 ML IVPB SCH ×3 (05:47→21:52)
--- NOTE | 2020-03-22 06:00 | NUR ---
NURSE NOTES: asleep no acute resp distress noted
--- NOTE | 2020-03-22 07:27 | NUR ---
HAND-OFF: Report given to .noah pete using sbar
--- NOTE | 2020-03-22 07:46 | General Progress Note ---
Assessment/Plan Problem List: (1) COPD (chronic obstructive pulmonary disease) ICD Codes: J44.9 - Chronic obstructive pulmonary disease, unspecified SNOMED: 07130188 Qualifiers: Qualified Codes: J44.9 - Chronic obstructive pulmonary disease, unspecified (2) Pneumonia ICD Codes: J18.9 - Pneumonia, unspecified organism SNOMED: 914147629 Qualifiers: Qualified Codes: J18.9 - Pneumonia, unspecified organism (3) Fever ICD Codes: R50.9 - Fever, unspecified SNOMED: 394800464 Status: stable, progressing Assessment/Plan: vent support wean per pulm iv abx repeat cultures- sputum and blood id eval follow up labs skin care turn q2 critical and guarded Subjective ROS Limited/Unobtainable: Yes Constitutional: Reports: malaise, weakness HEENT: Reports: no symptoms, mouth pain Cardiovascular: Reports: no symptoms Respiratory: Reports: shortness of breath Gastrointestinal/Abdominal: Reports: difficulty swallowing Genitourinary: Reports: no symptoms Neurologic/Psychiatric: Reports: pre-existing deficit Endocrine: Reports: no symptoms Hematologic/Lymphatic: Reports: no symptoms Allergies: Coded Allergies: PENICILLINS (Verified Allergy, Unknown, 03/11/20) All Systems: reviewed and negative except above Subjective remains intubated. on low dose pressors. no fevers. on ivf. labs pending. Objective Last 24 Hour Vital Signs Date Time Temp Pulse Resp B/P (MAP) Pulse Ox O2 Delivery O2 Flow Rate FiO2 03/22/20 07:30 76 21 96/53 (67) 100 03/22/20 07:00 75 21 101/59 (73) 100 03/22/20 06:00 108/63 03/22/20 06:00 75 14 108/63 (78) 100 03/22/20 05:30 78 19 99/60 (73) 100 03/22/20 05:00 76 18 111/64 (80) 100 03/22/20 05:00 98/55 03/22/20 04:30 76 17 90/54 (66) 100 03/22/20 04:00 98.6 71 19 114/93 (100) 100 03/22/20 04:00 60 03/22/20 04:00 90 03/22/20 04:00 108/57 03/22/20 04:00 Mechanical Ventilator 03/22/20 03:30 76 21 102/55 (71) 100 03/22/20 03:00 120/66 03/22/20 03:00 74 19 100/55 (70) 100 03/22/20 02:52 71 18 100 Mechanical Ventilator 60 73 18 60 03/22/20 02:30 77 21 105/63 (77) 100 03/22/20 02:00 81 22 109/65 (80) 100 03/22/20 02:00 107/60 03/22/20 01:45 85 25 116/95 (102) 94 03/22/20 01:30 84 19 114/68 (83) 99 03/22/20 01:00 102/57 03/22/20 01:00 86 22 102/57 (72) 99 03/22/20 00:30 85 19 97/57 (70) 99 03/22/20 00:00 94/54 03/22/20 00:00 60 03/22/20 00:00 83 03/22/20 00:00 Mechanical Ventilator 03/22/20 00:00 98.6 83 19 95/52 (66) 99 03/21/20 23:30 83 19 94/54 (67) 98 03/21/20 23:00 85 21 95/54 (68) 99 03/21/20 22:49 83 20 100 Mechanical Ventilator 60 84 24 60 03/21/20 22:30 85 21 93/57 (69) 99 03/21/20 22:00 98/61 03/21/20 22:00 80 19 98/61 (73) 100 03/21/20 21:30 80 19 106/63 (77) 100 03/21/20 21:00 83 18 84/50 (61) 98 03/21/20 21:00 84/50 03/21/20 20:30 77 20 100/59 (73) 100 03/21/20 20:00 Mechanical Ventilator 03/21/20 20:00 100/59 03/21/20 20:00 98.5 79 21 100/61 (74) 100 03/21/20 20:00 80 03/21/20 19:30 82 21 98/66 (77) 98 03/21/20 19:00 85 17 124/67 (86) 100 03/21/20 19:00 124/67 03/21/20 19:00 101/57 6/17/20 18:52 76 19 100 Mechanical Ventilator 60 81 21 60 03/21/20 18:01 74 17 110/70 (83) 100 03/21/20 18:00 110/70 03/21/20 17:30 74 21 107/63 (78) 100 03/21/20 17:15 71 22 101/59 (73) 100 03/21/20 17:00 118/76 03/21/20 17:00 76 19 118/76 (90) 100 03/21/20 16:00 Mechanical Ventilator 03/21/20 16:00 92/60 03/21/20 16:00 60 03/21/20 16:00 98.0 70 19 92/60 (71) 100 03/21/20 16:00 70 03/21/20 15:45 74 19 100/59 (73) 100 03/21/20 15:30 69 20 99/59 (72) 100 03/21/20 15:15 71 20 105/60 (75) 100 03/21/20 15:05 69 17 100 Mechanical Ventilator 60 69 17 60 03/21/20 15:00 84 15 107/67 (80) 95 03/21/20 15:00 107/67 03/21/20 14:45 71 20 111/54 (73) 100 03/21/20 14:30 70 20 97/53 (68) 100 03/21/20 14:20 84/54 03/21/20 14:00 80 20 84/54 (64) 95 03/21/20 13:00 69 20 99/50 (66) 100 03/21/20 12:07 77 19 85/46 (59) 100 03/21/20 12:00 98.0 79 19 80/46 (57) 99 03/21/20 12:00 60 03/21/20 12:00 Mechanical Ventilator 03/21/20 12:00 72 03/21/20 11:05 77 17 99 Mechanical Ventilator 60 77 17 60 03/21/20 11:00 75 16 107/57 (74) 97 03/21/20 10:20 79 18 93/66 (75) 99 03/21/20 10:00 79 18 85/59 (68) 99 03/21/20 09:00 80 19 111/64 (80) 100 03/21/20 08:30 Mechanical Ventilator 03/21/20 08:00 Mechanical Ventilator 03/21/20 08:00 84 03/21/20 08:00 98.1 80 19 102/72 (82) 95 Intake and Output 03/21/20 03/22/20 19:00 07:00 Intake Total 2419.34898 ml 2130.000 ml Output Total 2730 ml 860 ml Balance -310.18524 ml 1270.000 ml Free Water 210 ml IV Total 2199.75575 ml 1560.000 ml Tube Feeding 120 ml 360 ml Other 100 ml Output Urine Total 2730 ml 860 ml # Bowel Movements 2 1 Laboratory Tests 03/22/20 03:30: Sodium Level 133L, Potassium Level 3.6, Chloride Level 100, Carbon Dioxide Level 28, Anion Gap 5, Blood Urea Nitrogen 3L, Creatinine 0.7, Estimat Glomerular Filtration Rate > 60, Glucose Level 117H, Calcium Level 7.9L, Total Bilirubin 0.2, Aspartate Amino Transf (AST/SGOT) 30, Alanine Aminotransferase ( ALT/SGPT) 39, Alkaline Phosphatase 93, Total Protein 5.6L, Albumin 1.6L, Globulin 4.0, Albumin/Globulin Ratio 0.4L Height (Feet): 5 Height (Inches): 5.00 Weight (Pounds): 112 Objective General Appearance: WD/WN, lethargic. intubated Neck: non-tender Cardiovascular: normal rate, regular rhythm Respiratory/Chest: chest wall non-tender, lungs clear, normal breath sounds Abdomen: normal bowel sounds, non tender, soft, no organomegaly Edema: no edema noted Arm (L), no edema noted Arm (R), no edema noted Leg (L), no edema noted Leg (R), no edema noted Pedal (L), no edema noted Pedal (R), no edema noted Generalized Neurologic: alert Isaak Ledesma MD Mar 22, 2020 07:46
--- NOTE | 2020-03-22 08:01 | NUR ---
NURSE NOTES: Patient received from SHARATH Xiong and no signs acute distress.Orally intubated at 7.5/23 AC 14 VT 500 FI02 60% and Peep 5.GT feeding in place running Jevity 1.2 at 30cc and tolerate well with no residual.HOB elevated at 35 degree to prevent risks for aspiration.Picc line YUMIKO PICC line with dressing clean and intact.On weaning with CPAP PS 8, 40% and PEEP 5,will continue to monitor.Afebrile at this time and turned and repositioned.Mouth care done and suctioned as tolerated. Lainez catheter in place draining yellow straw urine with no apparent sediments. On P200 mattress for skin management.Call light within easy reach.Will kept close monitoring
[2020-03-22] MEDS: Heparin 5000 units/ml inj SUBQ SCH ×2 (08:08→20:15)
[2020-03-22] MEDS: Multivitamin w/Minerals tab ORAL SCH (08:09)
[2020-03-22] MEDS: Ascorbic Acid 500mg tab ORAL SCH (08:09)
[2020-03-22] MEDS: Zinc Sulfate 220mg ORAL SCH (08:09)
[2020-03-22] MEDS: Lactulose 20gm/30ml UDC ORAL SCH ×2 (08:09→13:05)
[2020-03-22 08:21] LABS: HEMATOCRIT 30.4 % (37.0-47.0); HEMOGLOBIN 9.9 G/DL (12.0-16.0); MEAN CORPUSCULAR VOLUME 96 FL (80-99); PLATELET COUNT 328 K/UL (150-450); RED BLOOD COUNT 3.15 M/UL (4.20-5.40); RED CELL DISTRIBUTION WIDTH 13.7 % (11.6-14.8)
[2020-03-22 08:36] LABS: ALANINE AMINOTRANSFERASE 37 U/L (12-78); ALBUMIN 1.6 G/DL (3.4-5.0); ALBUMIN/GLOBULIN RATIO 0.4 (1.0-2.7); ALKALINE PHOSPHATASE 89 U/L (46-116); ANION GAP 5 mmol/L (5-15); ASPARTATE AMINO TRANSFERASE 23 U/L (15-37); BILIRUBIN,TOTAL 0.2 MG/DL (0.2-1.0); BLOOD UREA NITROGEN 4 mg/dL (7-18); CARBON DIOXIDE 29 MMOL/L (21-32); CHLORIDE 100 MMOL/L (98-107); CREATININE 0.7 MG/DL (0.55-1.30); POTASSIUM 3.8 MMOL/L (3.5-5.1); SODIUM 134 MMOL/L (136-145)
[2020-03-22 08:50] LABS: WHITE BLOOD COUNT 26.4 K/UL (4.8-10.8)
[2020-03-22] MEDS: D5W w/KCl 20mEq 1,000 ML IV SCH ×3 (08:56→19:35)
[2020-03-22] MEDS: Vancomycin 1 GM in NS 275 ML IVPB SCH ×2 (08:57→20:16)
--- NOTE | 2020-03-22 09:08 | Critical Care Progress Note ---
Assessment/Plan Assessment/Plan IMPRESSION: 1. COPD without any clear exacerbation. 2. Respiratory insufficiency. 3. Pneumonia, likely fci acquired. COVID negative 4. Hypothyroidism. 5. History of allergies. 6. Severe protein-calorie malnutrition. 7. Mild leukocytosis. 8. acute respiratory failure care noted IV antibiotics/ cultures noted respiratory care Ventilatory support as is; monitor ABG maintain meds DVT prophylaxis; negative venous US supportive care suction no wean for today but consider in am oxygen therapy as is medications/laboratory data/nursing notes/ICU care reviewed in detail note reviewed and edited care discussed with RN and RT ICU time spent >40 minutes Critical Care - Subjective Interval Events: on vent in ICU flow sheets reviewed care noted sedated ROS Limited/Unobtainable: Yes Condition: critical EKG Rhythm: Sinus Rhythm I&O: Intake and Output 03/21/20 03/22/20 19:00 07:00 Intake Total 2419.13690 ml 2265.000 ml Output Total 2730 ml 860 ml Balance -310.23902 ml 1405.000 ml Free Water 210 ml IV Total 2199.13373 ml 1695.000 ml Tube Feeding 120 ml 360 ml Other 100 ml Output Urine Total 2730 ml 860 ml # Bowel Movements 2 1 Critical Care - Objective ET-Tube: 7.0 ET Position: 23 Last 24 Hour Vital Signs Date Time Temp Pulse Resp B/P (MAP) Pulse Ox O2 Delivery O2 Flow Rate FiO2 03/22/20 07:38 81 24 100 Mechanical Ventilator 60 73 18 60 03/22/20 07:30 76 21 96/53 (67) 100 03/22/20 07:00 103/57 03/22/20 07:00 75 21 101/59 (73) 100 03/22/20 06:00 108/63 03/22/20 06:00 75 14 108/63 (78) 100 03/22/20 05:30 78 19 99/60 (73) 100 03/22/20 05:00 76 18 111/64 (80) 100 03/22/20 05:00 98/55 03/22/20 04:30 76 17 90/54 (66) 100 03/22/20 04:00 98.6 71 19 114/93 (100) 100 03/22/20 04:00 60 03/22/20 04:00 90 03/22/20 04:00 108/57 03/22/20 04:00 Mechanical Ventilator 03/22/20 03:30 76 21 102/55 (71) 100 03/22/20 03:00 120/66 03/22/20 03:00 74 19 100/55 (70) 100 03/22/20 02:52 71 18 100 Mechanical Ventilator 60 73 18 60 03/22/20 02:30 77 21 105/63 (77) 100 03/22/20 02:00 81 22 109/65 (80) 100 03/22/20 02:00 107/60 03/22/20 01:45 85 25 116/95 (102) 94 03/22/20 01:30 84 19 114/68 (83) 99 03/22/20 01:00 102/57 03/22/20 01:00 86 22 102/57 (72) 99 03/22/20 00:30 85 19 97/57 (70) 99 03/22/20 00:00 94/54 03/22/20 00:00 60 03/22/20 00:00 83 03/22/20 00:00 Mechanical Ventilator 03/22/20 00:00 98.6 83 19 95/52 (66) 99 03/21/20 23:30 83 19 94/54 (67) 98 03/21/20 23:00 85 21 95/54 (68) 99 03/21/20 22:49 83 20 100 Mechanical Ventilator 60 84 24 60 03/21/20 22:30 85 21 93/57 (69) 99 03/21/20 22:00 98/61 03/21/20 22:00 80 19 98/61 (73) 100 03/21/20 21:30 80 19 106/63 (77) 100 03/21/20 21:00 83 18 84/50 (61) 98 03/21/20 21:00 84/50 03/21/20 20:30 77 20 100/59 (73) 100 03/21/20 20:00 Mechanical Ventilator 03/21/20 20:00 100/59 03/21/20 20:00 98.5 79 21 100/61 (74) 100 03/21/20 20:00 80 03/21/20 19:30 82 21 98/66 (77) 98 03/21/20 19:00 85 17 124/67 (86) 100 03/21/20 19:00 124/67 03/21/20 19:00 101/57 03/21/20 18:52 76 19 100 Mechanical Ventilator 60 81 21 60 03/21/20 18:01 74 17 110/70 (83) 100 03/21/20 18:00 110/70 03/21/20 17:30 74 21 107/63 (78) 100 03/21/20 17:15 71 22 101/59 (73) 100 03/21/20 17:00 118/76 03/21/20 17:00 76 19 118/76 (90) 100 03/21/20 16:00 Mechanical Ventilator 03/21/20 16:00 92/60 03/21/20 16:00 60 03/21/20 16:00 98.0 70 19 92/60 (71) 100 03/21/20 16:00 70 03/21/20 15:45 74 19 100/59 (73) 100 03/21/20 15:30 69 20 99/59 (72) 100 03/21/20 15:15 71 20 105/60 (75) 100 03/21/20 15:05 69 17 100 Mechanical Ventilator 60 69 17 60 03/21/20 15:00 84 15 107/67 (80) 95 03/21/20 15:00 107/67 03/21/20 14:45 71 20 111/54 (73) 100 03/21/20 14:30 70 20 97/53 (68) 100 03/21/20 14:20 84/54 03/21/20 14:00 80 20 84/54 (64) 95 03/21/20 13:00 69 20 99/50 (66) 100 03/21/20 12:07 77 19 85/46 (59) 100 03/21/20 12:00 98.0 79 19 80/46 (57) 99 03/21/20 12:00 60 03/21/20 12:00 Mechanical Ventilator 03/21/20 12:00 72 03/21/20 11:05 77 17 99 Mechanical Ventilator 60 77 17 60 03/21/20 11:00 75 16 107/57 (74) 97 03/21/20 10:20 79 18 93/66 (75) 99 03/21/20 10:00 79 18 85/59 (68) 99 Labs: Laboratory Tests Test 03/22/20 03:30 03/22/20 08:05 Sodium Level 133 MMOL/L (136-145) L 134 MMOL/L (136-145) L Potassium Level 3.6 MMOL/L (3.5-5.1) 3.8 MMOL/L (3.5-5.1) Chloride Level 100 MMOL/L (98-107) 100 MMOL/L (98-107) Carbon Dioxide Level 28 MMOL/L (21-32) 29 MMOL/L (21-32) Anion Gap 5 mmol/L (5-15) 5 mmol/L (5-15) Blood Urea Nitrogen 3 mg/dL (7-18) L 4 mg/dL (7-18) L Creatinine 0.7 MG/DL (0.55-1.30) 0.7 MG/DL (0.55-1.30) Estimat Glomerular Filtration Rate > 60 mL/min (>60) > 60 mL/min (>60) Glucose Level 117 MG/DL (74-106) H 109 MG/DL (74-106) H Calcium Level 7.9 MG/DL (8.5-10.1) L 8.0 MG/DL (8.5-10.1) L Total Bilirubin 0.2 MG/DL (0.2-1.0) 0.2 MG/DL (0.2-1.0) Aspartate Amino Transf (AST/SGOT) 30 U/L (15-37) 23 U/L (15-37) Alanine Aminotransferase (ALT/SGPT) 39 U/L (12-78) 37 U/L (12-78) Alkaline Phosphatase 93 U/L (46-116) 89 U/L (46-116) Total Protein 5.6 G/DL (6.4-8.2) L 5.7 G/DL (6.4-8.2) L Albumin 1.6 G/DL (3.4-5.0) L 1.6 G/DL (3.4-5.0) L Globulin 4.0 g/dL 4.1 g/dL Albumin/Globulin Ratio 0.4 (1.0-2.7) L 0.4 (1.0-2.7) L White Blood Count 26.4 K/UL (4.8-10.8) *H Red Blood Count 3.15 M/UL (4.20-5.40) L Hemoglobin 9.9 G/DL (12.0-16.0) L Hematocrit 30.4 % (37.0-47.0) L Mean Corpuscular Volume 96 FL (80-99) Mean Corpuscular Hemoglobin 31.5 PG (27.0-31.0) H Mean Corpuscular Hemoglobin Concent 32.7 G/DL (32.0-36.0) Red Cell Distribution Width 13.7 % (11.6-14.8) Platelet Count 328 K/UL (150-450) Mean Platelet Volume 8.7 FL (6.5-10.1) Neutrophils (%) (Auto) % (45.0-75.0) Lymphocytes (%) (Auto) % (20.0-45.0) Monocytes (%) (Auto) % (1.0-10.0) Eosinophils (%) (Auto) % (0.0-3.0) Basophils (%) (Auto) % (0.0-2.0) Neutrophils % (Manual) Pending Lymphocytes % (Manual) Pending Platelet Estimate Pending Platelet Morphology Pending Vancomycin Level Trough 14.2 ug/mL (5.0-12.0) H Objective: GENERAL: An ill-appearing female. NAD sedated on Vent NECK: Supple. No adenopathy. no swelling LUNGS: Coarse breath sounds. Moderate air entry. ETT in place; no rhonchi or wheeze CARDIAC: S1, S2. Regular rate and rhythm without murmur. ABDOMEN: Soft, nontender, nondistended. feeding tub EXTREMITIES: No cyanosis, clubbing, or edema. sedated reviewed and edited Javier Blake MD Mar 22, 2020 09:08
--- NOTE | 2020-03-22 10:09 | NUR ---
NURSE NOTES: Patient seen by Dr Blake, made aware failed weaning this AM.Pt turned and repositioned for skin management.HOB elevated to prevent aspiration.Call light within easy reach.Will continue close monitoring
--- NOTE | 2020-03-22 11:45 | NUR ---
*-* INSURANCE *-* UPDATED CLINICALS HAVE BEEN FAXED TO: [facility] Ref# [id number] F: [phone]
--- NOTE | 2020-03-22 12:13 | NUR ---
NURSE NOTES: Patient turned and repositioned for skin management.Mouth care done and suctioned as tolerated.HOB elevated to prevent aspiration. Call light within easy reach.
--- NOTE | 2020-03-22 14:02 | NUR ---
NURSE NOTES: No significant change in condition at this time,will continue same care plan.Turned and repositioned for skin management.
--- NOTE | 2020-03-22 14:49 | NUR ---
CASE MANAGEMENT:REVIEW SI;COPD. PNA. ORALLY INTUBATED. 98.9 84 25 93/55 97% MECH VENT WBC 26.4 NA 134 ALB 1.6 IS;NOREPINEPHRINE IV Q24 VANCOMYCIN IV Q12 PROTONIX NGT QD LACTULOSE NGT TID VIT C NGT QD ZOSYN IV Q8 IVF D5 @ 100 ML/HR ICU STATUS DCP;PATIENT IS FROM [facility]
--- NOTE | 2020-03-22 15:27 | Surgery Progress Note ---
Surgery Progress Note Subjective Symptoms: worse, other Objective Last 24 Hour Vital Signs Date Time Temp Pulse Resp B/P (MAP) Pulse Ox O2 Delivery O2 Flow Rate FiO2 03/22/20 15:25 88 15 100 Mechanical Ventilator 60 73 18 60 03/22/20 15:00 93/61 03/22/20 15:00 84 24 97/61 (73) 95 03/22/20 14:30 83 22 109/65 (80) 93 03/22/20 14:00 86 22 120/68 (85) 100 03/22/20 13:30 95 22 159/90 (113) 100 03/22/20 13:06 97/61 03/22/20 13:00 96 22 115/71 (86) 99 03/22/20 12:45 88/47 03/22/20 12:38 78 22 88/47 (61) 99 03/22/20 12:00 88 03/22/20 12:00 60 03/22/20 12:00 Mechanical Ventilator 03/22/20 12:00 98.6 85 24 97/54 (68) 97 03/22/20 12:00 94/53 03/22/20 11:30 83 22 96/57 (70) 97 03/22/20 11:15 87 22 100 Mechanical Ventilator 60 73 18 60 03/22/20 11:00 80 20 97/56 (70) 100 03/22/20 10:30 75 21 96/64 (75) 100 03/22/20 10:00 75 22 116/43 (67) 100 03/22/20 10:00 106/57 03/22/20 09:30 76 18 93/55 (68) 100 03/22/20 09:00 105/52 03/22/20 09:00 80 20 106/59 (75) 100 03/22/20 08:30 84 25 97/53 (68) 100 03/22/20 08:00 60 03/22/20 08:00 Mechanical Ventilator 03/22/20 08:00 108/62 03/22/20 08:00 98.9 76 20 106/63 (77) 100 03/22/20 08:00 73 03/22/20 07:38 81 24 100 Mechanical Ventilator 60 73 18 60 03/22/20 07:30 76 21 96/53 (67) 100 03/22/20 07:00 103/57 6/18/20 07:00 75 21 101/59 (73) 100 03/22/20 06:00 108/63 03/22/20 06:00 75 14 108/63 (78) 100 03/22/20 05:30 78 19 99/60 (73) 100 03/22/20 05:00 76 18 111/64 (80) 100 03/22/20 05:00 98/55 03/22/20 04:30 76 17 90/54 (66) 100 03/22/20 04:00 98.6 71 19 114/93 (100) 100 03/22/20 04:00 60 03/22/20 04:00 90 03/22/20 04:00 108/57 03/22/20 04:00 Mechanical Ventilator 03/22/20 03:30 76 21 102/55 (71) 100 03/22/20 03:00 120/66 03/22/20 03:00 74 19 100/55 (70) 100 03/22/20 02:52 71 18 100 Mechanical Ventilator 60 73 18 60 03/22/20 02:30 77 21 105/63 (77) 100 03/22/20 02:00 81 22 109/65 (80) 100 03/22/20 02:00 107/60 03/22/20 01:45 85 25 116/95 (102) 94 03/22/20 01:30 84 19 114/68 (83) 99 03/22/20 01:00 102/57 03/22/20 01:00 86 22 102/57 (72) 99 03/22/20 00:30 85 19 97/57 (70) 99 03/22/20 00:00 94/54 03/22/20 00:00 60 03/22/20 00:00 83 03/22/20 00:00 Mechanical Ventilator 03/22/20 00:00 98.6 83 19 95/52 (66) 99 03/21/20 23:30 83 19 94/54 (67) 98 03/21/20 23:00 85 21 95/54 (68) 99 03/21/20 22:49 83 20 100 Mechanical Ventilator 60 84 24 60 03/21/20 22:30 85 21 93/57 (69) 99 03/21/20 22:00 98/61 03/21/20 22:00 80 19 98/61 (73) 100 03/21/20 21:30 80 19 106/63 (77) 100 03/21/20 21:00 83 18 84/50 (61) 98 03/21/20 21:00 84/50 03/21/20 20:30 77 20 100/59 (73) 100 03/21/20 20:00 Mechanical Ventilator 03/21/20 20:00 100/59 03/21/20 20:00 98.5 79 21 100/61 (74) 100 03/21/20 20:00 80 03/21/20 19:30 82 21 98/66 (77) 98 03/21/20 19:00 85 17 124/67 (86) 100 03/21/20 19:00 124/67 03/21/20 19:00 101/57 03/21/20 18:52 76 19 100 Mechanical Ventilator 60 81 21 60 03/21/20 18:01 74 17 110/70 (83) 100 03/21/20 18:00 110/70 03/21/20 17:30 74 21 107/63 (78) 100 03/21/20 17:15 71 22 101/59 (73) 100 03/21/20 17:00 118/76 03/21/20 17:00 76 19 118/76 (90) 100 03/21/20 16:00 Mechanical Ventilator 03/21/20 16:00 92/60 03/21/20 16:00 60 03/21/20 16:00 98.0 70 19 92/60 (71) 100 03/21/20 16:00 70 03/21/20 15:45 74 19 100/59 (73) 100 03/21/20 15:30 69 20 99/59 (72) 100 I&O Intake and Output 03/21/20 03/22/20 19:00 07:00 Intake Total 2419.76479 ml 2265.000 ml Output Total 2730 ml 860 ml Balance -310.77891 ml 1405.000 ml Free Water 210 ml IV Total 2199.96592 ml 1695.000 ml Tube Feeding 120 ml 360 ml Other 100 ml Output Urine Total 2730 ml 860 ml # Bowel Movements 2 1 Dressing: saturated Cardiovascular: RSR Respiratory: decreased breath sounds Abdomen: soft, non-tender, present bowel sounds Extremities: edema, no cyanosis Laboratory Tests Test 03/22/20 03:30 03/22/20 08:05 Sodium Level 133 MMOL/L (136-145) L 134 MMOL/L (136-145) L Potassium Level 3.6 MMOL/L (3.5-5.1) 3.8 MMOL/L (3.5-5.1) Chloride Level 100 MMOL/L (98-107) 100 MMOL/L (98-107) Carbon Dioxide Level 28 MMOL/L (21-32) 29 MMOL/L (21-32) Anion Gap 5 mmol/L (5-15) 5 mmol/L (5-15) Blood Urea Nitrogen 3 mg/dL (7-18) L 4 mg/dL (7-18) L Creatinine 0.7 MG/DL (0.55-1.30) 0.7 MG/DL (0.55-1.30) Estimat Glomerular Filtration Rate > 60 mL/min (>60) > 60 mL/min (>60) Glucose Level 117 MG/DL (74-106) H 109 MG/DL (74-106) H Calcium Level 7.9 MG/DL (8.5-10.1) L 8.0 MG/DL (8.5-10.1) L Total Bilirubin 0.2 MG/DL (0.2-1.0) 0.2 MG/DL (0.2-1.0) Aspartate Amino Transf (AST/SGOT) 30 U/L (15-37) 23 U/L (15-37) Alanine Aminotransferase (ALT/SGPT) 39 U/L (12-78) 37 U/L (12-78) Alkaline Phosphatase 93 U/L (46-116) 89 U/L (46-116) Total Protein 5.6 G/DL (6.4-8.2) L 5.7 G/DL (6.4-8.2) L Albumin 1.6 G/DL (3.4-5.0) L 1.6 G/DL (3.4-5.0) L Globulin 4.0 g/dL 4.1 g/dL Albumin/Globulin Ratio 0.4 (1.0-2.7) L 0.4 (1.0-2.7) L White Blood Count 26.4 K/UL (4.8-10.8) *H Red Blood Count 3.15 M/UL (4.20-5.40) L Hemoglobin 9.9 G/DL (12.0-16.0) L Hematocrit 30.4 % (37.0-47.0) L Mean Corpuscular Volume 96 FL (80-99) Mean Corpuscular Hemoglobin 31.5 PG (27.0-31.0) H Mean Corpuscular Hemoglobin Concent 32.7 G/DL (32.0-36.0) Red Cell Distribution Width 13.7 % (11.6-14.8) Platelet Count 328 K/UL (150-450) Mean Platelet Volume 8.7 FL (6.5-10.1) Neutrophils (%) (Auto) % (45.0-75.0) Lymphocytes (%) (Auto) % (20.0-45.0) Monocytes (%) (Auto) % (1.0-10.0) Eosinophils (%) (Auto) % (0.0-3.0) Basophils (%) (Auto) % (0.0-2.0) Differential Total Cells Counted 100 Neutrophils % (Manual) 86 % (45-75) H Lymphocytes % (Manual) 7 % (20-45) L Monocytes % (Manual) 4 % (1-10) Eosinophils % (Manual) 3 % (0-3) Basophils % (Manual) 0 % (0-2) Band Neutrophils 0 % (0-8) Platelet Estimate Adequate Platelet Morphology Normal Hypochromasia 1+ Vancomycin Level Trough 14.2 ug/mL (5.0-12.0) H Plan Problems: (1) Malnutrition Assessment & Plan: not eating enough TF started adv as tolerated bowel regimen DDAILY ESTIMATED NEEDS: Needs based on Wound, pulmonary / 56kg 25-35 kcals/kg 7649-8748 total kcals 1.25-1.8 g protein/kg 70-100 g total protein 25-30 mL/kg 9359-8922 total fluid mLs NUTRITION DIAGNOSIS: * Swallowing difficulty R/T dysphagia as evidenced by [employer] [employer] w/ rec for NPO, now on NGT feeds. * Increased kcal/prot/micronutrients needs R/T wound healing as evidenced by pt admitted w/ multiple wounds including full thickness wound @ sacrum, TPI wound @ L Gluteal cheek, and non-Blanchable erythema @ BL heels. CURRENT TF:Jevity 1.2 @30ml/hr ENTERAL NUTRITION RECOMMENDATIONS: JEVITY 1.2 goal of 55ml/hr x24 hrs to provide 1320ml, 1584 kcal, 73g pro, 1065ml free H2O - rec to INCREASE current TF as tolerated to goal of 55ml/hr to better meet est needs. - flush per MD, HOB over 30 degrees ADDITIONAL RECOMMENDATIONS: * Per SNF: HT=66" BI=407aty (03/07/20) * Wound healing: continue MVI, Vit C, and ZnSO4 * VIA NGT-> add TOIN BID for wound care TF recs as above * Monitor lytes, replete as needed THIS 60 Y.O.M. WAS ADMITTED WITH ACUTE ISSUES - FEVER, HYPOXIC WITH LOW 02 SATS ON NON-REBREATHER, RESP RATE 18 BPM INITIALLY PER MEDICAL RECORD. PER RN, THE PATIENT HAD A RAPID RESPOSE THIS MORNING (DESAT TO 90S AND RAPID RESP RATE). H/O COPD, CARDIAC DZ, HYPOTHYROIDISM, HTN, ALLERGIC RHINITIS, SCHIZOPHRENIA (ON OLANZAPINE AT SNF), BASELINE NONVERBAL. PER POLST FULL TX BUT NO INFORMATION REGARDING TUBE FEEDING PREFERENCES. AT SNF ON A REGULAR DIET TEXTURE AND THIN LIQUIDS WITH PROSTAT SF DRINK WITH MEALS. NOW ON A REGULAR TEXTURE DIET AND THIN LIQUIDS BUT DID NOT TAKE ANY PO. PER LAURIE EARLY, THE PT UNABLE TO TAKE LARGE PILLS BUT APPEARED TO TOLERATE CRUSHED MEDS WITH APPLESAUCE W/O OVERT ASPIRATION. PATIENT SEEN WITH FUNMI HEATH. PER RT RESP RATE 22 BPM AND NOT ABLE TO ongoing unintelligible confabulations. Patient did request a sandwich, however, not appropriate for regular texture at this time. VITALS ON 2 L NASAL CANNULA: HR: 73; RR: 20; SP02: 95% Patient's oral hygiene is improving, ongoing poor speech intelligibility which appears to be more due to poor articulation precision/oral motor coordination versus 2/2 dry mouth. CXR on 03/14/20: Findings: Interim considerable improvement of previously demonstrated left lower lobe infiltrate. There is a residual disease in the retrocardiac region as well as generalized reticular interstitial opacities throughout the left mid and lower lung. There is questionably a 3 cm spiculated opacity projected over the apex. Minimal right mid and lower lung reticular opacities are also demonstrated. There is some right midlung atelectasis versus thickening of the minor fissure. The heart size is normal. The pleural spaces are clear Impression: Considerable improvement the persistence of previously demonstrated left mid and lower lung infiltrates, since prior study of 03/11/2020. [employer] [employer] plans to continue to f/u and monitor Patients readiness for PO trials for diet texture upgrade. RN aware of recommendations, plan, and aspiration precautions sign posted above Patients HOB. RECOMMENDATIONS: 1. Continue Moist Puree with [place] Thick Liquids Diet via 1 to 1 careful handfeeding while implementing posted aspiration precautions - RD recommendations appreciated for diet texture/type 2. Patient requires oral hygiene BID + lip moisturizer. (2) Decubitus skin ulcer Assessment & Plan: Pt presented on admission with multiple pressure injuries. Full thickness Pressure injury Sacrococcygeal area. (L)4cm x (W)2.5cm. Base of wound is fatou with scattered slough ,which was easily removed with gentle friction. Wound is now fatou with 25% soft necrosis at distal base of wound. Small amt sanguineous exudate noted.No odor noted. Periwound erythematous and denuded. Two additional Pressure Injuries noted to R gluteal cheek.(Proximal) Base of wound is purple and indurated(L)3cm x (W)1.5cm. Surrounding erythematous and denuded skin (Distal) R gluteus(L)1.4cm x (W)0.6cm. Base of wound is purple, indurated with surrounding erythematous and denuded skin. DTPI L Gluteal cheek (L)1.5cm x (W)1.3cm. Base of wound is indurated, purple with surrounding non-blanching erythema. Additional scattered areas that are maroon in colour noted to L gluteal cheek. Lateral L Heel boggy with non-blanching erythema with delineated margins. (L) 4cm x (W)4.5cm. Lateral R Heel Boggy with non-Blanchable erythema with delineated margins(L) 2.5cm x (W)2.5cm. Tx.Plan: Cleanse Sacrococcygeal area with saline. Apply TheraHoney , Apply Moisture Barrier Paste to Sacrum, R and L Buttocks. Cover entire Area with Optifoam drsgs. Change every 3 days and prn. Apply Moisture Barrier Paste to R and L Buttocks . Cover with Optifoam drsgs. Changee very 3 days and prn. Apply Cavilon Skin Barrier to R and L Trochanteric areas. Cover with Optifoam drsg. Change every 7 days and prn. Apply Cavilon Skin Barrier to R and L Heels. Cover each heel with Optifoam drsg. Change every 7 days and prn. Reposition at least every 2hours or as tolerated. Off-load heels with Pillow. APM/ERIK Mattress. (3) Pneumonia Assessment & Plan: Lungs: There is mild left lower lobe infiltrate consistent with pneumonia. Pleural space: Unremarkable. No pneumothorax. Heart: The heart size is at the upper limits of normal. Mediastinum: Unremarkable. Bones/joints: Unremarkable. IMPRESSION: There is mild left lower lobe infiltrate consistent with pneumonia. worsening on bipap now will monitor closely intubated now 03/21 wean vent (4) COPD (chronic obstructive pulmonary disease) (5) Fever Eddie Perez Mar 22, 2020 15:27
[2020-03-22] MEDS ORDERED: Acetaminophen 650mg/20.3ml NG PRN (15:30)
[2020-03-22] MEDS ORDERED: Milk of Magnesia 30ml Ud NG PRN (15:30)
[2020-03-22] MEDS ORDERED: Acetaminophen 650mg/20.3ml GT PRN (15:30)
[2020-03-22] MEDS ORDERED: Milk of Magnesia 30ml Ud GT PRN (15:30)
--- NOTE | 2020-03-22 16:17 | NUR ---
NURSE NOTES: ADLs done, pt turned and repositioned for skin management.Mouth care done and suctioned as tolerated.No significant change in condition at this time,will continue same care plan.
[2020-03-22] MEDS: Lactulose 20gm/30ml UDC NG SCH (17:36)
--- NOTE | 2020-03-22 18:06 | NUR ---
NURSE NOTES: Patient ADLs done , suctioned as tolerated.Mouth care done,turned and repositioned for skin management.HOB elevated to prevent aspiration.Call light within easy reach.No significant change in condition,will continue same care plan
--- NOTE | 2020-03-22 19:16 | NUR ---
HAND-OFF: Report given to SHARATH Reyes.
--- NOTE | 2020-03-22 19:30 | NUR ---
NURSE NOTES: Received report from SHARATH Alvarez. Pt is resting on the bed and able to open the eyes verbal stimuli. Pt has ETT #7.0 and orally intubated Vent setting with Ac:14, T: 500, P:5, FiO2 40% and SaO2: 96% noted. Noted moderate amount secretion. Given suction and oral care. Pt has NGT and in placed ad on running with Jevity 1.2@ 30cc/hr. No residual noted. Keep HOB position. Dressing is clean and dry on wound area. on P-200 mattress for wound management. changed position. Pt has Lt. upper arm PICC line and dressing is intact and on running with D5W+20mEq KCL @ 100cc/hr and Levophed @ 1mcg/min. Pt has Lainez cath and drainage well. Placed fall precaution. Will continue to care plan.
[2020-03-22] MEDS: Dyna-Hex 2% Top Sol 2oz TOPIC SCH (19:59)
--- NOTE | 2020-03-22 20:30 | General Progress Note ---
Assessment/Plan Status: stable, progressing Assessment/Plan: Assessment - Resp failure - dysphagia, NGT dependent - COPD - Anemia - leukocytosis - hypothyroid Recommendations - pulmonary toilet - NGT feeds - elevate HOB - follow labs and exam - PEG placement once stabilized Douglas Angel MD Subjective Allergies: Coded Allergies: PENICILLINS (Verified Allergy, Unknown, 03/11/20) Subjective Above noted seen in ICU more alert and responsive on vent tolerating NGT feeds Objective Last 24 Hour Vital Signs Date Time Temp Pulse Resp B/P (MAP) Pulse Ox O2 Delivery O2 Flow Rate FiO2 03/22/20 20:00 60 03/22/20 19:30 90 21 99 Mechanical Ventilator 35 91 20 35 03/22/20 19:00 88 24 107/67 (80) 95 03/22/20 19:00 107/67 03/22/20 18:29 88 24 92/54 (67) 99 03/22/20 18:00 92/54 03/22/20 18:00 91 24 111/68 (82) 97 03/22/20 17:30 91 24 111/68 (82) 97 03/22/20 17:00 88 25 95/59 (71) 96 03/22/20 17:00 111/68 03/22/20 16:30 89 25 93/57 (69) 95 03/22/20 16:00 90 03/22/20 16:00 60 03/22/20 16:00 106/69 03/22/20 16:00 90 24 106/63 (77) 94 03/22/20 16:00 99.0 90 24 106/63 (77) 94 03/22/20 16:00 Mechanical Ventilator 03/22/20 15:30 88 24 106/67 (80) 94 03/22/20 15:25 88 15 100 Mechanical Ventilator 60 73 18 60 03/22/20 15:00 93/61 03/22/20 15:00 84 24 97/61 (73) 95 03/22/20 14:30 83 22 109/65 (80) 93 03/22/20 14:00 86 22 120/68 (85) 100 03/22/20 13:30 95 22 159/90 (113) 100 03/22/20 13:06 97/61 03/22/20 13:00 96 22 115/71 (86) 99 03/22/20 12:45 88/47 03/22/20 12:38 78 22 88/47 (61) 99 03/22/20 12:00 88 03/22/20 12:00 60 03/22/20 12:00 Mechanical Ventilator 03/22/20 12:00 98.6 85 24 97/54 (68) 97 03/22/20 12:00 94/53 03/22/20 11:30 83 22 96/57 (70) 97 03/22/20 11:15 87 22 100 Mechanical Ventilator 60 73 18 60 03/22/20 11:00 80 20 97/56 (70) 100 03/22/20 10:30 75 21 96/64 (75) 100 03/22/20 10:00 75 22 116/43 (67) 100 03/22/20 10:00 106/57 03/22/20 09:30 76 18 93/55 (68) 100 03/22/20 09:00 105/52 03/22/20 09:00 80 20 106/59 (75) 100 03/22/20 08:30 84 25 97/53 (68) 100 03/22/20 08:00 60 03/22/20 08:00 Mechanical Ventilator 03/22/20 08:00 108/62 03/22/20 08:00 98.9 76 20 106/63 (77) 100 03/22/20 08:00 73 03/22/20 07:38 81 24 100 Mechanical Ventilator 60 73 18 60 03/22/20 07:30 76 21 96/53 (67) 100 03/22/20 07:00 103/57 03/22/20 07:00 75 21 101/59 (73) 100 03/22/20 06:00 108/63 03/22/20 06:00 75 14 108/63 (78) 100 03/22/20 05:30 78 19 99/60 (73) 100 03/22/20 05:00 76 18 111/64 (80) 100 03/22/20 05:00 98/55 03/22/20 04:30 76 17 90/54 (66) 100 03/22/20 04:00 98.6 71 19 114/93 (100) 100 03/22/20 04:00 60 03/22/20 04:00 90 03/22/20 04:00 108/57 6/18/20 04:00 Mechanical Ventilator 03/22/20 03:30 76 21 102/55 (71) 100 03/22/20 03:00 120/66 03/22/20 03:00 74 19 100/55 (70) 100 03/22/20 02:52 71 18 100 Mechanical Ventilator 60 73 18 60 03/22/20 02:30 77 21 105/63 (77) 100 03/22/20 02:00 81 22 109/65 (80) 100 03/22/20 02:00 107/60 03/22/20 01:45 85 25 116/95 (102) 94 03/22/20 01:30 84 19 114/68 (83) 99 03/22/20 01:00 102/57 03/22/20 01:00 86 22 102/57 (72) 99 03/22/20 00:30 85 19 97/57 (70) 99 03/22/20 00:00 94/54 03/22/20 00:00 60 03/22/20 00:00 83 03/22/20 00:00 Mechanical Ventilator 03/22/20 00:00 98.6 83 19 95/52 (66) 99 03/21/20 23:30 83 19 94/54 (67) 98 03/21/20 23:00 85 21 95/54 (68) 99 03/21/20 22:49 83 20 100 Mechanical Ventilator 60 84 24 60 03/21/20 22:30 85 21 93/57 (69) 99 03/21/20 22:00 98/61 03/21/20 22:00 80 19 98/61 (73) 100 03/21/20 21:30 80 19 106/63 (77) 100 03/21/20 21:00 83 18 84/50 (61) 98 03/21/20 21:00 84/50 03/21/20 20:30 77 20 100/59 (73) 100 Intake and Output 03/21/20 03/22/20 19:00 07:00 Intake Total 2419.30915 ml 2265.000 ml Output Total 2730 ml 860 ml Balance -310.21357 ml 1405.000 ml Free Water 210 ml IV Total 2199.67014 ml 1695.000 ml Tube Feeding 120 ml 360 ml Other 100 ml Output Urine Total 2730 ml 860 ml # Bowel Movements 2 1 Laboratory Tests 03/22/20 03:30: Sodium Level 133L, Potassium Level 3.6, Chloride Level 100, Carbon Dioxide Level 28, Anion Gap 5, Blood Urea Nitrogen 3L, Creatinine 0.7, Estimat Glomerular Filtration Rate > 60, Glucose Level 117H, Calcium Level 7.9L, Total Bilirubin 0.2, Aspartate Amino Transf (AST/SGOT) 30, Alanine Aminotransferase ( ALT/SGPT) 39, Alkaline Phosphatase 93, Total Protein 5.6L, Albumin 1.6L, Globulin 4.0, Albumin/Globulin Ratio 0.4L 03/22/20 08:05: Sodium Level 134L, Potassium Level 3.8, Chloride Level 100, Carbon Dioxide Level 29, Anion Gap 5, Blood Urea Nitrogen 4L, Creatinine 0.7, Estimat Glomerular Filtration Rate > 60, Glucose Level 109H, Calcium Level 8.0L, Total Bilirubin 0.2, Aspartate Amino Transf (AST/SGOT) 23, Alanine Aminotransferase ( ALT/SGPT) 37, Alkaline Phosphatase 89, Total Protein 5.7L, Albumin 1.6L, Globulin 4.1, Albumin/Globulin Ratio 0.4L, White Blood Count 26.4*H, Red Blood Count 3.15L, Hemoglobin 9.9L, Hematocrit 30.4L, Mean Corpuscular Volume 96, Mean Corpuscular Hemoglobin 31.5H, Mean Corpuscular Hemoglobin Concent 32.7, Red Cell Distribution Width 13.7, Platelet Count 328, Mean Platelet Volume 8.7, Neutrophils (%) (Auto) , Lymphocytes (%) (Auto) , Monocytes (%) (Auto) , Eosinophils (%) (Auto) , Basophils (%) (Auto) , Differential Total Cells Counted 100, Neutrophils % (Manual) 86H, Lymphocytes % (Manual) 7L, Monocytes % (Manual) 4, Eosinophils % (Manual) 3, Basophils % (Manual) 0, Band Neutrophils 0 , Platelet Estimate Adequate, Platelet Morphology Normal, Hypochromasia 1+, Vancomycin Level Trough 14.2H Height (Feet): 5 Height (Inches): 5.00 Weight (Pounds): 112 Objective Thin WW NCAT supple coarse BS RR abd soft NT ND no edema Douglas Tucker MD Mar 22, 2020 20:30
--- NOTE | 2020-03-22 22:00 | NUR ---
NURSE NOTES: SaO2 99% noted with current Vent setting. Suction and oral care was done. Changed position. Will continue to monitor any change of condition.
[2020-03-23] VITALS (39 sets, daily range): BP systolic 86–124; BP diastolic 50–73
--- NOTE | 2020-03-23 | NUR ---
NURSE NOTES: Pt is sleeping on the bed and no sign of acute distress noted. On agency legal counsel with SR. BP is stable. Tolerated well with current Vent setting. Provided oral care. Turn and reposition. Will continue to care plan.
--- NOTE | 2020-03-23 02:00 | NUR ---
NURSE NOTES: Pt is sleeping on the bed. on running with Levophed drip @ 1mcg/min. Suction was done. On playground monitor with SR. Turn and reposition. Will continue to care plan.
[2020-03-23] MEDS: Albuterol 90mcg Inhaler 8gm INH SCH ×6 (03:22→23:18)
--- NOTE | 2020-03-23 04:00 | NUR ---
NURSE NOTES: Morning care was done. Cleaned Pt and applied lotion and cream. Changed wound dressing. Collected blood sample. SaO2 98% with current Vent setting. Given oral and tracheal suction. Changed IV tubing. Changed position. Will continue to monitor any change of condition.
[2020-03-23 04:51] LABS: HEMATOCRIT 28.3 % (37.0-47.0); HEMOGLOBIN 9.1 G/DL (12.0-16.0); MEAN CORPUSCULAR VOLUME 97 FL (80-99); PLATELET COUNT 310 K/UL (150-450); RED BLOOD COUNT 2.92 M/UL (4.20-5.40); RED CELL DISTRIBUTION WIDTH 13.3 % (11.6-14.8)
[2020-03-23] MEDS: Piperacillin/Tazobactam 3.375 GM in NS 110 ML IVPB SCH ×3 (05:16→21:06)
[2020-03-23] MEDS: D5W w/KCl 20mEq 1,000 ML IV SCH (05:17)
[2020-03-23 05:22] LABS: ALANINE AMINOTRANSFERASE 38 U/L (12-78); ALBUMIN 1.5 G/DL (3.4-5.0); ALBUMIN/GLOBULIN RATIO 0.4 (1.0-2.7); ALKALINE PHOSPHATASE 102 U/L (46-116); ANION GAP 6 mmol/L (5-15); ASPARTATE AMINO TRANSFERASE 22 U/L (15-37); BILIRUBIN,TOTAL 0.2 MG/DL (0.2-1.0); BLOOD UREA NITROGEN 4 mg/dL (7-18); CALCIUM 8.2 MG/DL (8.5-10.1); CARBON DIOXIDE 28 MMOL/L (21-32); CHLORIDE 98 MMOL/L (98-107); CREATININE 0.7 MG/DL (0.55-1.30); POTASSIUM 3.9 MMOL/L (3.5-5.1); SODIUM 132 MMOL/L (136-145)
--- NOTE | 2020-03-23 06:00 | NUR ---
NURSE NOTES: Suction was done. Turn and reposition. On running with Levophed drip @ 1mcg/min. Will continue to monitor any change of condition.
--- NOTE | 2020-03-23 07:15 | NUR ---
HAND-OFF: Report given to SHARATH Bailey. Pt is sleeping on the bed and no sign of acute distress noted. on running with Levophed dtip @ 1mcg/min.
--- NOTE | 2020-03-23 07:19 | NUR ---
NURSE NOTES: Received patient from Eric [facility], patient is drowsy and opens eyes. Sinus Rhythm on the heart monitor, HR 80. Receiving oxygen via ET tube 7.0 23cm at the lip line, vent settings: AC 14, TV 500, Fio2 40%, PEEP 5. Left Nares NGT is intact and receiving Jevity 1.2 at 30cc/hr. IV site is Left Upper Arm PICC, receiving D5W with 20mEq KCl at 100cc/hr and Levophed at 1mcg/min. Lainez catheter is intact and draining. Bed is locked, placed in lowest position, side rails up x3, bed alarm on, head of bed elevated.
[2020-03-23] MEDS: Lactulose 20gm/30ml UDC NG SCH ×3 (08:24→18:02)
[2020-03-23] MEDS: Multivitamins W/Minerals 15 ML UDC NG SCH (08:24)
[2020-03-23] MEDS: Vancomycin 1 GM in NS 275 ML IVPB SCH ×2 (08:24→21:07)
[2020-03-23] MEDS: Zinc Sulfate 220mg NG SCH (08:25)
[2020-03-23] MEDS: Pantoprazole Inj IVP SCH (08:25)
[2020-03-23] MEDS: Ascorbic Acid 500mg tab NG SCH (08:25)
[2020-03-23] MEDS: Midodrine 10mg tab ORAL SCH ×3 (08:25→18:02)
[2020-03-23] MEDS: Heparin 5000 units/ml inj SUBQ SCH ×2 (08:26→21:06)
--- NOTE | 2020-03-23 08:52 | NUR ---
NURSE NOTES: Gave medications to patient as prescribed, no adverse reactions noted. Patient showing no signs of acute distress and patient is afebrile (98.3 degrees Fahrenheit Axillary). Turned and repositioned patient, oral care given, moderate amounts of thick clear secretions orally and via endotracheal tube removed by suctioning.
--- NOTE | 2020-03-23 09:08 | Critical Care Progress Note ---
Assessment/Plan Assessment/Plan IMPRESSION: 1. COPD 2. Hypercapnia and hypoxemia. 3. Pneumonia, likely assisted acquired. COVID negative 4. Hypothyroidism. 5. History of allergies. 6. Severe protein-calorie malnutrition. 7. Mild leukocytosis. 8. acute respiratory failure care noted IV antibiotics/ cultures noted respiratory care Ventilatory support as is; and try to wean maintain meds DVT prophylaxis; negative venous US supportive care suction aspiration precautions position change and off load oxygen therapy as is medications/laboratory data/nursing notes/ICU care reviewed in detail note reviewed and edited care discussed with RN and RT ICU time spent >40 minutes Critical Care - Subjective Interval Events: on vent in ICU care noted still with leukocytosis ROS Limited/Unobtainable: Yes Condition: critical EKG Rhythm: Sinus Rhythm I&O: Intake and Output 03/22/20 03/23/20 19:00 07:00 Intake Total 2114.916 ml 1830.200 ml Output Total 965 ml 1640 ml Balance 1149.916 ml 190.200 ml Free Water 120 ml IV Total 1634.916 ml 1440.200 ml Tube Feeding 360 ml 390 ml Output Urine Total 965 ml 1640 ml # Bowel Movements 5 Critical Care - Objective ET-Tube: 7.0 ET Position: 23 Last 24 Hour Vital Signs Date Time Temp Pulse Resp B/P (MAP) Pulse Ox O2 Delivery O2 Flow Rate FiO2 03/23/20 08:00 60 03/23/20 08:00 75 18 91/63 (72) 99 03/23/20 08:00 Mechanical Ventilator 03/23/20 07:59 76 16 98 Mechanical Ventilator 35 73 16 35 03/23/20 07:30 79 19 99/56 (70) 98 03/23/20 07:00 77 17 90/50 (63) 99 03/23/20 07:00 90/50 03/23/20 06:00 75 19 102/59 (73) 100 03/23/20 06:00 102/59 03/23/20 05:00 97/52 03/23/20 05:00 76 19 97/52 (67) 99 03/23/20 04:00 Mechanical Ventilator 03/23/20 04:00 98.1 78 22 94/55 (68) 98 03/23/20 04:00 79 03/23/20 04:00 94/55 6/19/20 03:22 80 21 96 Mechanical Ventilator 35 81 20 35 03/23/20 03:00 83 26 107/63 (78) 97 03/23/20 03:00 107/63 03/23/20 02:00 82 22 102/63 (76) 97 03/23/20 02:00 102/63 03/23/20 01:40 60 03/23/20 01:00 102/68 03/23/20 01:00 80 18 102/68 (79) 98 03/23/20 00:15 83 03/23/20 00:00 Mechanical Ventilator 03/23/20 00:00 60 03/23/20 00:00 98/68 03/23/20 00:00 97.8 78 18 98/60 (73) 97 03/22/20 23:11 79 17 98 Mechanical Ventilator 35 82 17 35 03/22/20 23:00 82 23 111/67 (82) 97 03/22/20 23:00 117/62 03/22/20 22:00 103/63 03/22/20 22:00 75 18 109/65 (80) 99 03/22/20 21:59 103/63 03/22/20 21:00 107/62 20 21:00 83 21 107/62 (77) 97 03/22/20 20:00 97.5 85 20 112/69 (83) 95 20 20:00 86 20 20:00 112/69 20 20:00 60 1820 20:00 Mechanical Ventilator 03/22/20 19:30 90 21 99 Mechanical Ventilator 35 91 20 35 03/22/20 19:00 88 24 107/67 (80) 95 1820 19:00 107/67 20 18:29 88 24 92/54 (67) 99 1820 18:00 92/54 20 18:00 91 24 111/68 (82) 97 20 17:30 91 24 111/68 (82) 97 1820 17:00 88 25 95/59 (71) 96 18/20 17:00 111/68 20 16:30 89 25 93/57 (69) 95 20 16:00 90 18/20 16:00 60 6/18/20 16:00 106/69 03/22/20 16:00 90 24 106/63 (77) 94 03/22/20 16:00 99.0 90 24 106/63 (77) 94 03/22/20 16:00 Mechanical Ventilator 03/22/20 15:30 88 24 106/67 (80) 94 03/22/20 15:25 88 15 100 Mechanical Ventilator 60 73 18 60 03/22/20 15:00 93/61 03/22/20 15:00 84 24 97/61 (73) 95 03/22/20 14:30 83 22 109/65 (80) 93 03/22/20 14:00 86 22 120/68 (85) 100 03/22/20 13:30 95 22 159/90 (113) 100 03/22/20 13:06 97/61 03/22/20 13:00 96 22 115/71 (86) 99 03/22/20 12:45 88/47 03/22/20 12:38 78 22 88/47 (61) 99 03/22/20 12:00 88 03/22/20 12:00 60 03/22/20 12:00 Mechanical Ventilator 03/22/20 12:00 98.6 85 24 97/54 (68) 97 03/22/20 12:00 94/53 03/22/20 11:30 83 22 96/57 (70) 97 03/22/20 11:15 87 22 100 Mechanical Ventilator 60 73 18 60 03/22/20 11:00 80 20 97/56 (70) 100 03/22/20 10:30 75 21 96/64 (75) 100 03/22/20 10:00 75 22 116/43 (67) 100 03/22/20 10:00 106/57 03/22/20 09:30 76 18 93/55 (68) 100 Labs: Laboratory Tests Test 03/23/20 03:35 White Blood Count 17.0 K/UL (4.8-10.8) H Red Blood Count 2.92 M/UL (4.20-5.40) L Hemoglobin 9.1 G/DL (12.0-16.0) L Hematocrit 28.3 % (37.0-47.0) L Mean Corpuscular Volume 97 FL (80-99) Mean Corpuscular Hemoglobin 31.2 PG (27.0-31.0) H Mean Corpuscular Hemoglobin Concent 32.2 G/DL (32.0-36.0) Red Cell Distribution Width 13.3 % (11.6-14.8) Platelet Count 310 K/UL (150-450) Mean Platelet Volume 8.6 FL (6.5-10.1) Neutrophils (%) (Auto) % (45.0-75.0) Lymphocytes (%) (Auto) % (20.0-45.0) Monocytes (%) (Auto) % (1.0-10.0) Eosinophils (%) (Auto) % (0.0-3.0) Basophils (%) (Auto) % (0.0-2.0) Differential Total Cells Counted 100 Neutrophils % (Manual) 86 % (45-75) H Lymphocytes % (Manual) 10 % (20-45) L Monocytes % (Manual) 4 % (1-10) Eosinophils % (Manual) 0 % (0-3) Basophils % (Manual) 0 % (0-2) Band Neutrophils 0 % (0-8) Platelet Estimate Adequate Platelet Morphology Normal Hypochromasia 2+ Anisocytosis 1+ Sodium Level 132 MMOL/L (136-145) L Potassium Level 3.9 MMOL/L (3.5-5.1) Chloride Level 98 MMOL/L (98-107) Carbon Dioxide Level 28 MMOL/L (21-32) Anion Gap 6 mmol/L (5-15) Blood Urea Nitrogen 4 mg/dL (7-18) L Creatinine 0.7 MG/DL (0.55-1.30) Estimat Glomerular Filtration Rate > 60 mL/min (>60) Glucose Level 104 MG/DL (74-106) Lactic Acid Level 1.10 mmol/L (0.4-2.0) Calcium Level 8.2 MG/DL (8.5-10.1) L Total Bilirubin 0.2 MG/DL (0.2-1.0) Aspartate Amino Transf (AST/SGOT) 22 U/L (15-37) Alanine Aminotransferase (ALT/SGPT) 38 U/L (12-78) Alkaline Phosphatase 102 U/L (46-116) Total Protein 5.6 G/DL (6.4-8.2) L Albumin 1.5 G/DL (3.4-5.0) L Globulin 4.1 g/dL Albumin/Globulin Ratio 0.4 (1.0-2.7) L Objective: GENERAL: An ill-appearing female. NAD sedated on Vent NECK: Supple. No adenopathy. LUNGS: Coarse breath sounds. Moderate air entry. ETT in place; no rhonchi or wheeze CARDIAC: S1, S2. Regular rate and rhythm without murmur. ABDOMEN: Soft, nontender, nondistended. feeding tub EXTREMITIES: No cyanosis, clubbing, or edema. sedated reviewed and edited Micro: Microbiology Date/Time Source Procedure Growth Status 03/22/20 08:00 Sputum Gram Stain - Final Resulted 03/22/20 08:00 Sputum Sputum Culture - Preliminary NO GROWTH Resulted Javier Blake MD Mar 23, 2020 09:08
--- NOTE | 2020-03-23 10:38 | NUR ---
NURSE NOTES: Patient seen and assessed by Dr. Bailey.
--- NOTE | 2020-03-23 12:01 | NUR ---
*-* INSURANCE *-* UPDATED CLINICALS AND CLINICALS HAVE BEEN FAXED TO: [facility] Ref# [id number] F: [phone]
--- NOTE | 2020-03-23 14:02 | NUR ---
NURSE NOTES: Patient is resting comfortably in bed, remains drowsy in bed, no signs of acute distress. Turned and repositioned patient.
[2020-03-23] MEDS: Norepinephrine 4mg/NS Premix 250 ML IV SCH (14:52)
--- NOTE | 2020-03-23 14:55 | Surgery Progress Note ---
Surgery Progress Note Subjective Additional Comments wbc trending down no n/v/f/c labs noted anemia exam stable on vent support weaning Objective Last 24 Hour Vital Signs Date Time Temp Pulse Resp B/P (MAP) Pulse Ox O2 Delivery O2 Flow Rate FiO2 03/23/20 14:15 70 22 124/63 (83) 100 03/23/20 14:00 68 20 106/58 (74) 100 03/23/20 14:00 106/58 03/23/20 13:30 72 18 86/53 (64) 100 03/23/20 13:00 105/61 03/23/20 13:00 75 22 105/61 (76) 99 03/23/20 12:30 74 18 99/52 (68) 99 03/23/20 12:00 99.0 75 20 97/54 (68) 99 03/23/20 12:00 97/54 03/23/20 12:00 Mechanical Ventilator 03/23/20 12:00 60 03/23/20 11:40 72 03/23/20 11:30 72 20 99/54 (69) 99 03/23/20 11:13 74 20 100 Mechanical Ventilator 35 72 20 35 03/23/20 11:00 73 22 105/63 (77) 100 03/23/20 11:00 105/63 03/23/20 10:30 71 17 103/54 (70) 99 03/23/20 10:00 74 18 98/55 (69) 98 03/23/20 10:00 98/55 03/23/20 09:30 72 20 99/64 (76) 98 03/23/20 09:00 72 22 104/56 (72) 98 03/23/20 09:00 104/56 03/23/20 08:30 98.3 75 22 110/62 (78) 100 03/23/20 08:00 60 03/23/20 08:00 75 18 91/63 (72) 99 03/23/20 08:00 91/63 03/23/20 08:00 Mechanical Ventilator 03/23/20 07:59 76 16 98 Mechanical Ventilator 35 73 16 35 03/23/20 07:54 76 03/23/20 07:30 79 19 99/56 (70) 98 03/23/20 07:00 77 17 90/50 (63) 99 03/23/20 07:00 90/50 6/19/20 06:00 75 19 102/59 (73) 100 03/23/20 06:00 102/59 03/23/20 05:00 97/52 03/23/20 05:00 76 19 97/52 (67) 99 03/23/20 04:00 Mechanical Ventilator 03/23/20 04:00 98.1 78 22 94/55 (68) 98 03/23/20 04:00 79 03/23/20 04:00 94/55 03/23/20 03:22 80 21 96 Mechanical Ventilator 35 81 20 35 03/23/20 03:00 83 26 107/63 (78) 97 03/23/20 03:00 107/63 03/23/20 02:00 82 22 102/63 (76) 97 03/23/20 02:00 102/63 03/23/20 01:40 60 03/23/20 01:00 102/68 03/23/20 01:00 80 18 102/68 (79) 98 03/23/20 00:15 83 03/23/20 00:00 Mechanical Ventilator 03/23/20 00:00 60 03/23/20 00:00 98/68 03/23/20 00:00 97.8 78 18 98/60 (73) 97 03/22/20 23:11 79 17 98 Mechanical Ventilator 35 82 17 35 03/22/20 23:00 82 23 111/67 (82) 97 03/22/20 23:00 117/62 03/22/20 22:00 103/63 03/22/20 22:00 75 18 109/65 (80) 99 03/22/20 21:59 103/63 03/22/20 21:00 107/62 20 21:00 83 21 107/62 (77) 97 20 20:00 97.5 85 20 112/69 (83) 95 03/22/20 20:00 86 03/22/20 20:00 112/69 03/22/20 20:00 60 03/22/20 20:00 Mechanical Ventilator 03/22/20 19:30 90 21 99 Mechanical Ventilator 35 91 20 35 03/22/20 19:00 88 24 107/67 (80) 95 03/22/20 19:00 107/67 03/22/20 18:29 88 24 92/54 (67) 99 03/22/20 18:00 92/54 03/22/20 18:00 91 24 111/68 (82) 97 03/22/20 17:30 91 24 111/68 (82) 97 03/22/20 17:00 88 25 95/59 (71) 96 03/22/20 17:00 111/68 03/22/20 16:30 89 25 93/57 (69) 95 03/22/20 16:00 90 03/22/20 16:00 60 03/22/20 16:00 106/69 03/22/20 16:00 90 24 106/63 (77) 94 03/22/20 16:00 99.0 90 24 106/63 (77) 94 03/22/20 16:00 Mechanical Ventilator 03/22/20 15:30 88 24 106/67 (80) 94 03/22/20 15:25 88 15 100 Mechanical Ventilator 60 73 18 60 03/22/20 15:00 93/61 03/22/20 15:00 84 24 97/61 (73) 95 I&O Intake and Output 03/22/20 03/23/20 19:00 07:00 Intake Total 2114.916 ml 1830.200 ml Output Total 965 ml 1640 ml Balance 1149.916 ml 190.200 ml Free Water 120 ml IV Total 1634.916 ml 1440.200 ml Tube Feeding 360 ml 390 ml Output Urine Total 965 ml 1640 ml # Bowel Movements 5 Dressing: other Wound: other Drains: other Cardiovascular: RSR Respiratory: decreased breath sounds Abdomen: soft, present bowel sounds Extremities: no cyanosis Laboratory Tests Test 03/23/20 03:35 White Blood Count 17.0 K/UL (4.8-10.8) H Red Blood Count 2.92 M/UL (4.20-5.40) L Hemoglobin 9.1 G/DL (12.0-16.0) L Hematocrit 28.3 % (37.0-47.0) L Mean Corpuscular Volume 97 FL (80-99) Mean Corpuscular Hemoglobin 31.2 PG (27.0-31.0) H Mean Corpuscular Hemoglobin Concent 32.2 G/DL (32.0-36.0) Red Cell Distribution Width 13.3 % (11.6-14.8) Platelet Count 310 K/UL (150-450) Mean Platelet Volume 8.6 FL (6.5-10.1) Neutrophils (%) (Auto) % (45.0-75.0) Lymphocytes (%) (Auto) % (20.0-45.0) Monocytes (%) (Auto) % (1.0-10.0) Eosinophils (%) (Auto) % (0.0-3.0) Basophils (%) (Auto) % (0.0-2.0) Differential Total Cells Counted 100 Neutrophils % (Manual) 86 % (45-75) H Lymphocytes % (Manual) 10 % (20-45) L Monocytes % (Manual) 4 % (1-10) Eosinophils % (Manual) 0 % (0-3) Basophils % (Manual) 0 % (0-2) Band Neutrophils 0 % (0-8) Platelet Estimate Adequate Platelet Morphology Normal Hypochromasia 2+ Anisocytosis 1+ Sodium Level 132 MMOL/L (136-145) L Potassium Level 3.9 MMOL/L (3.5-5.1) Chloride Level 98 MMOL/L (98-107) Carbon Dioxide Level 28 MMOL/L (21-32) Anion Gap 6 mmol/L (5-15) Blood Urea Nitrogen 4 mg/dL (7-18) L Creatinine 0.7 MG/DL (0.55-1.30) Estimat Glomerular Filtration Rate > 60 mL/min (>60) Glucose Level 104 MG/DL (74-106) Lactic Acid Level 1.10 mmol/L (0.4-2.0) Calcium Level 8.2 MG/DL (8.5-10.1) L Total Bilirubin 0.2 MG/DL (0.2-1.0) Aspartate Amino Transf (AST/SGOT) 22 U/L (15-37) Alanine Aminotransferase (ALT/SGPT) 38 U/L (12-78) Alkaline Phosphatase 102 U/L (46-116) Total Protein 5.6 G/DL (6.4-8.2) L Albumin 1.5 G/DL (3.4-5.0) L Globulin 4.1 g/dL Albumin/Globulin Ratio 0.4 (1.0-2.7) L Plan Problems: (1) Malnutrition Assessment & Plan: not eating enough TF started adv as tolerated bowel regimen DDAILY ESTIMATED NEEDS: Needs based on Wound, pulmonary / 56kg 25-35 kcals/kg 5207-7385 total kcals 1.25-1.8 g protein/kg 70-100 g total protein 25-30 mL/kg 0922-0273 total fluid mLs NUTRITION DIAGNOSIS: * Swallowing difficulty R/T dysphagia as evidenced by MAINFRAME CONSULTANT w/ rec for NPO, now on NGT feeds. * Increased kcal/prot/micronutrients needs R/T wound healing as evidenced by pt admitted w/ multiple wounds including full thickness wound @ sacrum, TPI wound @ L Gluteal cheek, and non-Blanchable erythema @ BL heels. CURRENT TF:Jevity 1.2 @30ml/hr ENTERAL NUTRITION RECOMMENDATIONS: JEVITY 1.2 goal of 55ml/hr x24 hrs to provide 1320ml, 1584 kcal, 73g pro, 1065ml free H2O - rec to INCREASE current TF as tolerated to goal of 55ml/hr to better meet est needs. - flush per CHRISTINA JONES over 30 degrees ADDITIONAL RECOMMENDATIONS: * Per SNF: HT=66" VM=425iai (03/07/20) * Wound healing: continue MVI, Vit C, and ZnSO4 * VIA NGT-> add TONI BID for wound care TF recs as above * Monitor lytes, replete as needed THIS 60 Y.O.M. WAS ADMITTED WITH ACUTE ISSUES - FEVER, HYPOXIC WITH LOW 02 SATS ON NON-REBREATHER, RESP RATE 18 BPM INITIALLY PER MEDICAL RECORD. PER RN, THE PATIENT HAD A RAPID RESPOSE THIS MORNING (DESAT TO 90S AND RAPID RESP RATE). H/O COPD, CARDIAC DZ, HYPOTHYROIDISM, HTN, ALLERGIC RHINITIS, SCHIZOPHRENIA (ON OLANZAPINE AT SNF), BASELINE NONVERBAL. PER POLST FULL TX BUT NO INFORMATION REGARDING TUBE FEEDING PREFERENCES. AT SNF ON A REGULAR DIET TEXTURE AND THIN LIQUIDS WITH PROSTAT SF DRINK WITH MEALS. NOW ON A REGULAR TEXTURE DIET AND THIN LIQUIDS BUT DID NOT TAKE ANY PO. PER LAURIE EARLY, THE PT UNABLE TO TAKE LARGE PILLS BUT APPEARED TO TOLERATE CRUSHED MEDS WITH APPLESAUCE W/O OVERT ASPIRATION. PATIENT SEEN WITH RTFUNMI. PER RT RESP RATE 22 BPM AND NOT ABLE TO ongoing unintelligible confabulations. Patient did request a sandwich, however, not appropriate for regular texture at this time. VITALS ON 2 L NASAL CANNULA: HR: 73; RR: 20; SP02: 95% Patient's oral hygiene is improving, ongoing poor speech intelligibility which appears to be more due to poor articulation precision/oral motor coordination versus 2/2 dry mouth. CXR on 03/14/20: Findings: Interim considerable improvement of previously demonstrated left lower lobe infiltrate. There is a residual disease in the retrocardiac region as well as generalized reticular interstitial opacities throughout the left mid and lower lung. There is questionably a 3 cm spiculated opacity projected over the apex. Minimal right mid and lower lung reticular opacities are also demonstrated. There is some right midlung atelectasis versus thickening of the minor fissure. The heart size is normal. The pleural spaces are clear Impression: Considerable improvement the persistence of previously demonstrated left mid and lower lung infiltrates, since prior study of 03/11/2020. MAINFRAME CONSULTANT plans to continue to f/u and monitor Patients readiness for PO trials for diet texture upgrade. RN aware of recommendations, plan, and aspiration precautions sign posted above Patients HOB. RECOMMENDATIONS: 1. Continue Moist Puree with [place] Thick Liquids Diet via 1 to 1 careful handfeeding while implementing posted aspiration precautions - RD recommendations appreciated for diet texture/type 2. Patient requires oral hygiene BID + lip moisturizer. (2) Decubitus skin ulcer Assessment & Plan: Pt presented on admission with multiple pressure injuries. Full thickness Pressure injury Sacrococcygeal area. (L)4cm x (W)2.5cm. Base of wound is fatou with scattered slough ,which was easily removed with gentle friction. Wound is now fatou with 25% soft necrosis at distal base of wound. Small amt sanguineous exudate noted.No odor noted. Periwound erythematous and denuded. Two additional Pressure Injuries noted to R gluteal cheek.(Proximal) Base of wound is purple and indurated(L)3cm x (W)1.5cm. Surrounding erythematous and denuded skin (Distal) R gluteus(L)1.4cm x (W)0.6cm. Base of wound is purple, indurated with surrounding erythematous and denuded skin. DTPI L Gluteal cheek (L)1.5cm x (W)1.3cm. Base of wound is indurated, purple with surrounding non-blanching erythema. Additional scattered areas that are maroon in colour noted to L gluteal cheek. Lateral L Heel boggy with non-blanching erythema with delineated margins. (L) 4cm x (W)4.5cm. Lateral R Heel Boggy with non-Blanchable erythema with delineated margins(L) 2.5cm x (W)2.5cm. Tx.Plan: Cleanse Sacrococcygeal area with saline. Apply TheraHoney , Apply Moisture Barrier Paste to Sacrum, R and L Buttocks. Cover entire Area with Optifoam drsgs. Change every 3 days and prn. Apply Moisture Barrier Paste to R and L Buttocks . Cover with Optifoam drsgs. Changee very 3 days and prn. Apply Cavilon Skin Barrier to R and L Trochanteric areas. Cover with Optifoam drsg. Change every 7 days and prn. Apply Cavilon Skin Barrier to R and L Heels. Cover each heel with Optifoam drsg. Change every 7 days and prn. Reposition at least every 2hours or as tolerated. Off-load heels with Pillow. APM/ERIK Mattress. (3) Pneumonia Assessment & Plan: Lungs: There is mild left lower lobe infiltrate consistent with pneumonia. Pleural space: Unremarkable. No pneumothorax. Heart: The heart size is at the upper limits of normal. Mediastinum: Unremarkable. Bones/joints: Unremarkable. IMPRESSION: There is mild left lower lobe infiltrate consistent with pneumonia. worsening on bipap now will monitor closely intubated now 03/21 wean vent (4) COPD (chronic obstructive pulmonary disease) (5) Fever Eddie Perez Mar 23, 2020 14:55
--- NOTE | 2020-03-23 15:13 | General Progress Note ---
Assessment/Plan Problem List: (1) COPD (chronic obstructive pulmonary disease) ICD Codes: J44.9 - Chronic obstructive pulmonary disease, unspecified SNOMED: 18339216 Qualifiers: Qualified Codes: J44.9 - Chronic obstructive pulmonary disease, unspecified (2) Pneumonia ICD Codes: J18.9 - Pneumonia, unspecified organism SNOMED: 206029027 Qualifiers: Qualified Codes: J18.9 - Pneumonia, unspecified organism (3) Fever ICD Codes: R50.9 - Fever, unspecified SNOMED: 062056424 Status: stable, progressing Assessment/Plan: vent support wean per pulm iv abx repeat cultures- sputum and blood id eval follow up labs ivf adjusted skin care turn q2 critical and guarded Subjective ROS Limited/Unobtainable: Yes Constitutional: Reports: malaise, weakness HEENT: Reports: no symptoms Cardiovascular: Reports: no symptoms Respiratory: Reports: shortness of breath Gastrointestinal/Abdominal: Reports: no symptoms Genitourinary: Reports: no symptoms Neurologic/Psychiatric: Reports: no symptoms Endocrine: Reports: no symptoms Hematologic/Lymphatic: Reports: no symptoms Allergies: Coded Allergies: PENICILLINS (Verified Allergy, Unknown, 03/11/20) All Systems: reviewed and negative except above Subjective remains intubated. on low dose pressors. no fevers. on ivf. labs noted Objective Last 24 Hour Vital Signs Date Time Temp Pulse Resp B/P (MAP) Pulse Ox O2 Delivery O2 Flow Rate FiO2 03/23/20 14:52 104/59 03/23/20 14:15 70 22 124/63 (83) 100 03/23/20 14:00 68 20 106/58 (74) 100 03/23/20 14:00 106/58 03/23/20 13:30 72 18 86/53 (64) 100 03/23/20 13:00 105/61 03/23/20 13:00 75 22 105/61 (76) 99 03/23/20 12:30 74 18 99/52 (68) 99 03/23/20 12:00 99.0 75 20 97/54 (68) 99 03/23/20 12:00 97/54 03/23/20 12:00 Mechanical Ventilator 03/23/20 12:00 60 03/23/20 11:40 72 03/23/20 11:30 72 20 99/54 (69) 99 03/23/20 11:13 74 20 100 Mechanical Ventilator 35 72 20 35 03/23/20 11:00 73 22 105/63 (77) 100 03/23/20 11:00 105/63 03/23/20 10:30 71 17 103/54 (70) 99 03/23/20 10:00 74 18 98/55 (69) 98 03/23/20 10:00 98/55 03/23/20 09:30 72 20 99/64 (76) 98 03/23/20 09:00 72 22 104/56 (72) 98 03/23/20 09:00 104/56 03/23/20 08:30 98.3 75 22 110/62 (78) 100 03/23/20 08:00 60 03/23/20 08:00 75 18 91/63 (72) 99 03/23/20 08:00 91/63 03/23/20 08:00 Mechanical Ventilator 03/23/20 07:59 76 16 98 Mechanical Ventilator 35 73 16 35 03/23/20 07:54 76 03/23/20 07:30 79 19 99/56 (70) 98 03/23/20 07:00 77 17 90/50 (63) 99 03/23/20 07:00 90/50 03/23/20 06:00 75 19 102/59 (73) 100 03/23/20 06:00 102/59 03/23/20 05:00 97/52 03/23/20 05:00 76 19 97/52 (67) 99 03/23/20 04:00 Mechanical Ventilator 03/23/20 04:00 98.1 78 22 94/55 (68) 98 03/23/20 04:00 79 03/23/20 04:00 94/55 03/23/20 03:22 80 21 96 Mechanical Ventilator 35 81 20 35 03/23/20 03:00 83 26 107/63 (78) 97 03/23/20 03:00 107/63 03/23/20 02:00 82 22 102/63 (76) 97 20 02:00 102/63 03/23/20 01:40 60 03/23/20 01:00 102/68 03/23/20 01:00 80 18 102/68 (79) 98 03/23/20 00:15 83 03/23/20 00:00 Mechanical Ventilator 03/23/20 00:00 60 03/23/20 00:00 98/68 03/23/20 00:00 97.8 78 18 98/60 (73) 97 03/22/20 23:11 79 17 98 Mechanical Ventilator 35 82 17 35 03/22/20 23:00 82 23 111/67 (82) 97 03/22/20 23:00 117/62 03/22/20 22:00 103/63 03/22/20 22:00 75 18 109/65 (80) 99 20 21:59 103/63 03/22/20 21:00 107/62 03/22/20 21:00 83 21 107/62 (77) 97 03/22/20 20:00 97.5 85 20 112/69 (83) 95 03/22/20 20:00 86 03/22/20 20:00 112/69 03/22/20 20:00 60 03/22/20 20:00 Mechanical Ventilator 03/22/20 19:30 90 21 99 Mechanical Ventilator 35 91 20 35 03/22/20 19:00 88 24 107/67 (80) 95 03/22/20 19:00 107/67 03/22/20 18:29 88 24 92/54 (67) 99 03/22/20 18:00 92/54 03/22/20 18:00 91 24 111/68 (82) 97 03/22/20 17:30 91 24 111/68 (82) 97 03/22/20 17:00 88 25 95/59 (71) 96 03/22/20 17:00 111/68 03/22/20 16:30 89 25 93/57 (69) 95 20 16:00 90 20 16:00 60 20 16:00 106/69 03/22/20 16:00 90 24 106/63 (77) 94 03/22/20 16:00 99.0 90 24 106/63 (77) 94 20 16:00 Mechanical Ventilator 03/22/20 15:30 88 24 106/67 (80) 94 20 15:25 88 15 100 Mechanical Ventilator 60 73 18 60 Intake and Output 03/22/20 03/23/20 19:00 07:00 Intake Total 2114.916 ml 1830.200 ml Output Total 965 ml 1640 ml Balance 1149.916 ml 190.200 ml Free Water 120 ml IV Total 1634.916 ml 1440.200 ml Tube Feeding 360 ml 390 ml Output Urine Total 965 ml 1640 ml # Bowel Movements 5 Laboratory Tests 03/23/20 03:35: White Blood Count 17.0H, Red Blood Count 2.92L, Hemoglobin 9.1L, Hematocrit 28.3L, Mean Corpuscular Volume 97, Mean Corpuscular Hemoglobin 31.2H, Mean Corpuscular Hemoglobin Concent 32.2, Red Cell Distribution Width 13.3, Platelet Count 310, Mean Platelet Volume 8.6, Neutrophils (%) (Auto) , Lymphocytes (%) ( Auto) , Monocytes (%) (Auto) , Eosinophils (%) (Auto) , Basophils (%) (Auto) , Differential Total Cells Counted 100, Neutrophils % (Manual) 86H, Lymphocytes % (Manual) 10L, Monocytes % (Manual) 4, Eosinophils % (Manual) 0, Basophils % ( Manual) 0, Band Neutrophils 0, Platelet Estimate Adequate, Platelet Morphology Normal, Hypochromasia 2+, Anisocytosis 1+, Sodium Level 132L, Potassium Level 3.9, Chloride Level 98, Carbon Dioxide Level 28, Anion Gap 6, Blood Urea Nitrogen 4L, Creatinine 0.7, Estimat Glomerular Filtration Rate > 60, Glucose Level 104, Lactic Acid Level 1.10, Calcium Level 8.2L, Total Bilirubin 0.2, Aspartate Amino Transf (AST/SGOT) 22, Alanine Aminotransferase (ALT/SGPT) 38, Alkaline Phosphatase 102, Total Protein 5.6L, Albumin 1.5L, Globulin 4.1, Albumin/Globulin Ratio 0.4L Height (Feet): 5 Height (Inches): 5.00 Weight (Pounds): 112 Objective General Appearance: WD/WN, lethargic. intubated Neck: non-tender Cardiovascular: normal rate, regular rhythm Respiratory/Chest: chest wall non-tender, lungs clear, normal breath sounds Abdomen: normal bowel sounds, non tender, soft, no organomegaly Edema: no edema noted Arm (L), no edema noted Arm (R), no edema noted Leg (L), no edema noted Leg (R), no edema noted Pedal (L), no edema noted Pedal (R), no edema noted Generalized Neurologic: alert Isaak Ledesma MD Mar 23, 2020 15:13
--- NOTE | 2020-03-23 15:16 | NUR ---
CASE MANAGEMENT:REVIEW SI;COPD. PNA. RESPIRATORY FAILURE~ORALLY INTUBATED. 99.0 75 22 86/53 99% MECH VENT AC 14 TV 500 PEEP 5 FIO2 @ 35% WBC 17 H/H 9.1/28.3 NA 135 ALB 1.5 IS;IVF NS @ 50 ML/HR NOREPINEPHRINE IV Q24 PROTONIX IV QD MIDODRINE NGT TID VIT C NGT QD ZINC SULFATE NGT QD VANCOMYCIN IV Q12 ZOSYN IV Q8 ICU STATUS DCP;PATIENT IS FROM [facility]
--- NOTE | 2020-03-23 16:45 | Consultation ---
DATE OF CONSULTATION: 03/23/2020 INFECTIOUS DISEASES CONSULTATION CONSULTING PHYSICIAN: Eh Bailey MD. REFERRING PHYSICIAN: Isaak Ledesma MD. REASON FOR CONSULTATION: Pneumonia. HISTORY OF PRESENTING ILLNESS: This is a 60-year-old lady with history of schizophrenia, hypothyroidism, COPD, who came in from a half-way facility with fever, cough and congestion. She was found to have a leukocytosis and pneumonia. She was tested negative for COVID-19 and an Infectious Diseases consultation has been obtained for antibiotics. PAST MEDICAL HISTORY: 1. History of COPD. 2. Hypothyroidism. 3. Schizophrenia. SOCIAL HISTORY: No history of smoking, alcohol, or drug use. FAMILY HISTORY: Unknown. REVIEW OF SYSTEMS: Unable to obtain currently. MEDICATIONS: As an inpatient, she is on ascorbic acid, multivitamin, zinc sulfate, loratadine, Protonix, midodrine, lactulose, Tylenol, milk of magnesia, chlorhexidine gluconate, Levophed, vancomycin, subcutaneous heparin, albuterol, Zosyn. ALLERGIES: To penicillin noted. PHYSICAL EXAMINATION: VITAL SIGNS: Temperature of 98.3, T-max of 99, pulse of 73, respiratory rate 22, blood pressure 105/63, O2 saturation of 100% on FiO2 of 40% with PEEP of 5. HEENT: Pupils equally reactive to light and accommodation. Mouth, the patient is intubated. NECK: Supple. No adenopathy. No JVD. CARDIOVASCULAR: Regular rate and rhythm. No murmurs. LUNGS: Clear to auscultation bilaterally. No crackles. No wheezes. ABDOMEN: Soft, nontender. No organomegaly. EXTREMITIES: No cyanosis, no clubbing, no edema. Left arm PICC line noted. LABORATORY AND DIAGNOSTIC DATA: White count of 17, white count of 31 on 03/21/2020, hemoglobin 9.1, hematocrit 28.3, MCV 97, platelet count of 310,000, neutrophils of 86%. Sodium 132, potassium 3.9, chloride 98, bicarb 28, BUN 4, creatinine 0.7, glucose 104, calcium 8.2. Total bilirubin 0.2. AST 22, ALT 38, alkaline phosphatase 102. Total protein 5.6. Albumin 1.5. UA showing 5 to 10 white cells. Blood cultures are negative. On 03/11/2020, COVID-19 test was negative. On 03/14/2020, COVID-19 test was negative. Rectal swab was positive for VRE. Nasal swab was negative for MRSA. Sputum culture is negative. Chest x-ray is showing mildly improved left upper lung infiltrates, retrocardiac densities unchanged. ASSESSMENT: This is a 60-year-old lady with history of schizophrenia, hypothyroidism, COPD, who comes in with fever, congestion and cough and shortness of breath and is found to have: 1. Pneumonia, COVID-19 test is negative x2. 2. Hypothyroidism. 3. COPD. 4. Schizophrenia. 5. Leukocytosis, improving. PLAN: 1. Continue IV vancomycin and Zosyn as she appears to be tolerating it. 2. We will follow up cultures and adjust antibiotics accordingly. I would like to thank, Dr. Ledesma, for this consultation. Eh Bailey M.D. DR: IAN JOB#: [id number] CC: Isaak Ledesma MD.
[2020-03-23] MEDS ORDERED: 1/2 NS 1000ml IV ONE (16:55)
--- NOTE | 2020-03-23 17:52 | NUR ---
NURSE NOTES: Bed bath given to patient, turned and repositioned. No signs of acute distress, patient is afebrile.
--- NOTE | 2020-03-23 19:19 | NUR ---
HAND-OFF: Report given to Radha EARLY.
--- NOTE | 2020-03-23 19:30 | NUR ---
NURSE NOTES: Received patient from Leo RN, patient in bed awake, opens eyes. Sinus Rhythm on the heart monitor, HR 70. Receiving oxygen via ET tube 7.0 23cm at the lip line, vent settings: AC 14, TV 500, Fio2 35%, PEEP 5. Left Nares NGT is intact and receiving Jevity 1.2 at 30cc/hr no residual. IV site is Left Upper Arm PICC, infusing 1/2 NS at 50cc/hr. Lainez catheter is intact and draining with pale color urine. Bed is locked, placed in lowest position, side rails up x3, bed alarm on, head of bed elevated. On P200 mattress for wound management. Contact isolation maintained and observed. will continue plan of care.
--- NOTE | 2020-03-23 20:08 | General Progress Note ---
Assessment/Plan Status: stable, progressing Assessment/Plan: Assessment - Resp failure - dysphagia, NGT dependent - COPD - Anemia - leukocytosis - hypothyroid Recommendations - pulmonary toilet - NGT feeds - elevate HOB - follow labs and exam - PEG placement once stabilized Subjective Allergies: Coded Allergies: PENICILLINS (Verified Allergy, Unknown, 03/11/20) Subjective Above noted seen in ICU d/w RN on vent tolerating NGT feeds Objective Last 24 Hour Vital Signs Date Time Temp Pulse Resp B/P (MAP) Pulse Ox O2 Delivery O2 Flow Rate FiO2 03/23/20 19:44 66 17 100 Mechanical Ventilator 35 65 18 35 03/23/20 19:00 70 20 111/59 (76) 98 03/23/20 18:30 66 20 111/73 (86) 98 03/23/20 18:00 74 23 120/68 (85) 98 03/23/20 17:30 72 18 100/56 (71) 100 03/23/20 17:00 73 23 99/61 (74) 100 03/23/20 16:01 69 03/23/20 16:00 60 03/23/20 16:00 71 22 93/54 (67) 100 03/23/20 16:00 Mechanical Ventilator 03/23/20 15:36 69 18 100 Mechanical Ventilator 35 70 18 35 03/23/20 15:30 70 20 101/52 (68) 100 03/23/20 15:00 69 18 96/54 (68) 99 03/23/20 14:52 104/59 03/23/20 14:45 71 21 104/59 (74) 99 03/23/20 14:30 72 23 112/60 (77) 100 03/23/20 14:15 70 22 124/63 (83) 100 03/23/20 14:00 68 20 106/58 (74) 100 03/23/20 14:00 106/58 03/23/20 13:30 72 18 86/53 (64) 100 03/23/20 13:00 105/61 03/23/20 13:00 75 22 105/61 (76) 99 03/23/20 12:30 74 18 99/52 (68) 99 03/23/20 12:00 99.0 75 20 97/54 (68) 99 03/23/20 12:00 97/54 03/23/20 12:00 Mechanical Ventilator 03/23/20 12:00 60 03/23/20 11:40 72 03/23/20 11:30 72 20 99/54 (69) 99 03/23/20 11:13 74 20 100 Mechanical Ventilator 35 72 20 35 03/23/20 11:00 73 22 105/63 (77) 100 03/23/20 11:00 105/63 03/23/20 10:30 71 17 103/54 (70) 99 03/23/20 10:00 74 18 98/55 (69) 98 03/23/20 10:00 98/55 03/23/20 09:30 72 20 99/64 (76) 98 03/23/20 09:00 72 22 104/56 (72) 98 03/23/20 09:00 104/56 03/23/20 08:30 98.3 75 22 110/62 (78) 100 03/23/20 08:00 60 03/23/20 08:00 75 18 91/63 (72) 99 03/23/20 08:00 91/63 03/23/20 08:00 Mechanical Ventilator 03/23/20 07:59 76 16 98 Mechanical Ventilator 35 73 16 35 03/23/20 07:54 76 03/23/20 07:30 79 19 99/56 (70) 98 03/23/20 07:00 77 17 90/50 (63) 99 03/23/20 07:00 90/50 03/23/20 06:00 75 19 102/59 (73) 100 03/23/20 06:00 102/59 03/23/20 05:00 97/52 03/23/20 05:00 76 19 97/52 (67) 99 03/23/20 04:00 Mechanical Ventilator 03/23/20 04:00 98.1 78 22 94/55 (68) 98 03/23/20 04:00 79 03/23/20 04:00 94/55 03/23/20 03:22 80 21 96 Mechanical Ventilator 35 81 20 35 03/23/20 03:00 83 26 107/63 (78) 97 03/23/20 03:00 107/63 03/23/20 02:00 82 22 102/63 (76) 97 03/23/20 02:00 102/63 6/19/20 01:40 60 03/23/20 01:00 102/68 03/23/20 01:00 80 18 102/68 (79) 98 03/23/20 00:15 83 03/23/20 00:00 Mechanical Ventilator 03/23/20 00:00 60 03/23/20 00:00 98/68 03/23/20 00:00 97.8 78 18 98/60 (73) 97 03/22/20 23:11 79 17 98 Mechanical Ventilator 35 82 17 35 03/22/20 23:00 82 23 111/67 (82) 97 03/22/20 23:00 117/62 03/22/20 22:00 103/63 03/22/20 22:00 75 18 109/65 (80) 99 03/22/20 21:59 103/63 03/22/20 21:00 107/62 03/22/20 21:00 83 21 107/62 (77) 97 Intake and Output 03/22/20 03/23/20 19:00 07:00 Intake Total 2114.916 ml 1830.200 ml Output Total 965 ml 1640 ml Balance 1149.916 ml 190.200 ml Free Water 120 ml IV Total 1634.916 ml 1440.200 ml Tube Feeding 360 ml 390 ml Output Urine Total 965 ml 1640 ml # Bowel Movements 5 Laboratory Tests 03/23/20 03:35: White Blood Count 17.0H, Red Blood Count 2.92L, Hemoglobin 9.1L, Hematocrit 28.3L, Mean Corpuscular Volume 97, Mean Corpuscular Hemoglobin 31.2H, Mean Corpuscular Hemoglobin Concent 32.2, Red Cell Distribution Width 13.3, Platelet Count 310, Mean Platelet Volume 8.6, Neutrophils (%) (Auto) , Lymphocytes (%) ( Auto) , Monocytes (%) (Auto) , Eosinophils (%) (Auto) , Basophils (%) (Auto) , Differential Total Cells Counted 100, Neutrophils % (Manual) 86H, Lymphocytes % (Manual) 10L, Monocytes % (Manual) 4, Eosinophils % (Manual) 0, Basophils % ( Manual) 0, Band Neutrophils 0, Platelet Estimate Adequate, Platelet Morphology Normal, Hypochromasia 2+, Anisocytosis 1+, Sodium Level 132L, Potassium Level 3.9, Chloride Level 98, Carbon Dioxide Level 28, Anion Gap 6, Blood Urea Nitrogen 4L, Creatinine 0.7, Estimat Glomerular Filtration Rate > 60, Glucose Level 104, Lactic Acid Level 1.10, Calcium Level 8.2L, Total Bilirubin 0.2, Aspartate Amino Transf (AST/SGOT) 22, Alanine Aminotransferase (ALT/SGPT) 38, Alkaline Phosphatase 102, Total Protein 5.6L, Albumin 1.5L, Globulin 4.1, Albumin/Globulin Ratio 0.4L Height (Feet): 5 Height (Inches): 5.00 Weight (Pounds): 112 Objective Thin WW NCAT supple coarse BS RR abd soft NT ND no edema Douglas Tucker MD Mar 23, 2020 20:08
[2020-03-23] MEDS: Dyna-Hex 2% Top Sol 2oz TOPIC SCH (21:04)
--- NOTE | 2020-03-23 21:30 | NUR ---
NURSE NOTES: Turned and repositioned. HOB elevated. No fever. skin warm and dry to touch. oral care and suctioned patient. will continue plan of care.
--- NOTE | 2020-03-23 23:30 | NUR ---
NURSE NOTES: Pt in bed sleeping comfortably. no sign of acute distress noted. Provided oral care. Turn and reposition. Will continue to care plan.
[2020-03-24] VITALS (27 sets, daily range): BP systolic 88–125; BP diastolic 46–70
--- NOTE | 2020-03-24 01:30 | NUR ---
NURSE NOTES: Bed bath given tolerated well.
[2020-03-24] MEDS: Albuterol 90mcg Inhaler 8gm INH SCH ×6 (03:23→22:36)
--- NOTE | 2020-03-24 03:30 | NUR ---
NURSE NOTES: Pt in bed sleeping comfortably. no sign of acute distress noted. Provided oral care. Turn and reposition. Will continue to care plan.
[2020-03-24 05:17] LABS: ANION GAP 6 mmol/L (5-15); BLOOD UREA NITROGEN 8 mg/dL (7-18); CALCIUM 8.2 MG/DL (8.5-10.1); CARBON DIOXIDE 29 MMOL/L (21-32); CHLORIDE 99 MMOL/L (98-107); CREATININE 0.8 MG/DL (0.55-1.30); POTASSIUM 3.9 MMOL/L (3.5-5.1); SODIUM 134 MMOL/L (136-145)
--- NOTE | 2020-03-24 05:30 | NUR ---
NURSE NOTES: Turned and repositioned. HOB elevated. No fever. skin warm and dry to touch. oral care and suctioned patient. will continue plan of care.
[2020-03-24] MEDS: Piperacillin/Tazobactam 3.375 GM in NS 110 ML IVPB SCH ×3 (06:15→22:41)
--- NOTE | 2020-03-24 07:02 | NUR ---
HAND-OFF: Report given to Leo EARLY.Seen and examined by Dr. Tucker.
--- NOTE | 2020-03-24 07:03 | NUR ---
NURSE NOTES: Received patient from Radha RN, patient is drowsy and opens eyes. Sinus Rhythm on the heart monitor, HR 65. Receiving oxygen via ET tube 7.0 23cm at the lip line, vent settings: AC 14, TV 500, Fio2 35%, PEEP 5. Left Nares NGT is intact and receiving Jevity 1.2 at 30cc/hr. IV site is Left Upper Arm PICC, receiving 1/2 NS at 50cc/hr. Lainez catheter is intact and draining. Bed is locked, placed in lowest position, side rails up x3, bed alarm on, head of bed elevated.
[2020-03-24 07:30] LABS: BASOPHILS % (AUTO) 0.9 % (0.0-2.0); EOSINOPHILS % (AUTO) 1.4 % (0.0-3.0); HEMATOCRIT 29.1 % (37.0-47.0); HEMOGLOBIN 9.5 G/DL (12.0-16.0); LYMPHOCYTES % (AUTO) 12.2 % (20.0-45.0); MEAN CORPUSCULAR VOLUME 96 FL (80-99); MONOCYTES % (AUTO) 4.5 % (1.0-10.0); NEUTROPHILS % (AUTO) 81.1 % (45.0-75.0); PLATELET COUNT 313 K/UL (150-450); RED BLOOD COUNT 3.04 M/UL (4.20-5.40); RED CELL DISTRIBUTION WIDTH 13.2 % (11.6-14.8); WHITE BLOOD COUNT 11.6 K/UL (4.8-10.8)
--- NOTE | 2020-03-24 07:42 | NUR ---
RESPIRATORY NOTES: Began weaning Patient at 0730. Placed patient on PS +8 PEEP +5 Fio2 35%. Patient current RR 28, RSBI 82, SPON VT 358, VE 10.7, HR 77, SATS 100%. Patient is calm and understands what is going on. Will continue to monitor.
[2020-03-24] MEDS: Lactulose 20gm/30ml UDC NG SCH ×3 (08:16→18:01)
[2020-03-24] MEDS: Ascorbic Acid 500mg tab NG SCH (08:17)
[2020-03-24] MEDS: Midodrine 10mg tab ORAL SCH (08:17)
[2020-03-24] MEDS: Zinc Sulfate 220mg NG SCH (08:17)
[2020-03-24] MEDS: Pantoprazole Inj IVP SCH (08:17)
[2020-03-24] MEDS: Multivitamins W/Minerals 15 ML UDC NG SCH (08:17)
[2020-03-24] MEDS: Heparin 5000 units/ml inj SUBQ SCH ×2 (08:19→20:16)
[2020-03-24] MEDS: Vancomycin 1 GM in NS 275 ML IVPB SCH ×2 (08:20→20:15)
--- NOTE | 2020-03-24 08:53 | NUR ---
NURSE NOTES: Gave medications to patient as prescribed, no adverse reaction noted. Patient is calm and currently weening, patient is tachypneic RR 23, O2 Saturation 92%-98%. Patient is afebrile. No signs of pain, FLACC score 0.
--- NOTE | 2020-03-24 09:03 | NUR ---
RESPIRATORY NOTES: Weaning stopped at 0900 due to desaturation of 89%. Place back onto previous ACVC settings.
[2020-03-24] MEDS ORDERED: NS 500ML ONE ×2 (09:37→10:03)
[2020-03-24] MEDS ORDERED: Tubing IV Secondary IV ONE ×2 (09:37→10:03)
[2020-03-24] MEDS ORDERED: NS 275ml ONE ×2 (09:37→10:03)
--- NOTE | 2020-03-24 10:51 | Critical Care Progress Note ---
Assessment/Plan Assessment/Plan IMPRESSION: 1. COPD 2. Hypercapnia and hypoxemia. 3. Pneumonia, likely residential acquired. COVID negative 4. Hypothyroidism. 5. History of allergies. 6. Severe protein-calorie malnutrition. 7. Mild leukocytosis. 8. acute respiratory failure care noted IV antibiotics/ all reviewed respiratory care Ventilatory support as is; weaning and monitor ABG maintain meds DVT prophylaxis; supportive care suction aspiration precautions position change and off load oxygen therapy as is hope to extubate monitor nutrition medications/laboratory data/nursing notes/ICU care reviewed in detail note reviewed and edited care discussed with RN and RT ICU time spent >40 minutes Critical Care - Subjective Interval Events: weaning reviewed setting tidal volumes noted in ICU care reviewed ROS Limited/Unobtainable: Yes Condition: critical EKG Rhythm: Sinus Rhythm Residuals: minimal Tube Feeding Tolerated: yes I&O: Intake and Output 03/23/20 03/24/20 19:00 07:00 Intake Total 1652.08 ml 1495.000 ml Output Total 1675 ml 1140 ml Balance -22.92 ml 355.000 ml Free Water 150 ml IV Total 1292.08 ml 985.000 ml Tube Feeding 360 ml 360 ml Output Urine Total 1675 ml 1140 ml # Bowel Movements 2 Critical Care - Objective ET-Tube: 7.0 ET Position: 23 Last 24 Hour Vital Signs Date Time Temp Pulse Resp B/P (MAP) Pulse Ox O2 Delivery O2 Flow Rate FiO2 03/24/20 10:00 71 19 104/53 (70) 98 03/24/20 09:00 99.1 66 20 112/52 (72) 93 03/24/20 08:00 Mechanical Ventilator 03/24/20 08:00 35 03/24/20 08:00 74 28 105/63 (77) 94 03/24/20 07:41 100 03/24/20 07:21 75 18 97 Mechanical Ventilator 35 73 14 35 35 03/24/20 07:00 65 14 90/54 (66) 100 03/24/20 06:00 69 17 100/54 (69) 99 03/24/20 05:30 69 16 102/59 (73) 99 03/24/20 05:00 64 16 88/48 (61) 95 03/24/20 04:00 35 03/24/20 04:00 Mechanical Ventilator 03/24/20 04:00 77 03/24/20 04:00 98.8 66 20 107/56 (73) 95 03/24/20 03:24 68 22 97 Mechanical Ventilator 35 66 20 35 03/24/20 03:00 64 16 101/57 (72) 97 03/24/20 02:00 74 17 116/64 (81) 98 03/24/20 01:00 64 15 107/63 (78) 98 03/24/20 00:00 35 03/24/20 00:00 98.5 65 16 105/57 (73) 97 03/24/20 00:00 66 03/24/20 00:00 Mechanical Ventilator 03/23/20 23:16 65 16 98 Mechanical Ventilator 35 66 16 35 03/23/20 23:00 66 16 99/57 (71) 96 03/23/20 22:30 66 17 102/53 (69) 97 03/23/20 22:00 65 17 101/53 (69) 99 03/23/20 21:00 66 18 117/61 (79) 99 03/23/20 20:30 65 19 105/54 (71) 99 03/23/20 20:00 35 03/23/20 20:00 98.8 65 19 105/53 (70) 99 03/23/20 20:00 67 03/23/20 20:00 Mechanical Ventilator 03/23/20 19:44 66 17 100 Mechanical Ventilator 35 65 18 35 03/23/20 19:00 70 20 111/59 (76) 98 03/23/20 18:30 66 20 111/73 (86) 98 03/23/20 18:00 74 23 120/68 (85) 98 03/23/20 17:30 72 18 100/56 (71) 100 03/23/20 17:00 73 23 99/61 (74) 100 03/23/20 16:01 69 03/23/20 16:00 60 03/23/20 16:00 71 22 93/54 (67) 100 03/23/20 16:00 Mechanical Ventilator 03/23/20 15:36 69 18 100 Mechanical Ventilator 35 70 18 35 03/23/20 15:30 70 20 101/52 (68) 100 03/23/20 15:00 69 18 96/54 (68) 99 03/23/20 14:52 104/59 6/19/20 14:45 71 21 104/59 (74) 99 03/23/20 14:30 72 23 112/60 (77) 100 03/23/20 14:15 70 22 124/63 (83) 100 03/23/20 14:00 68 20 106/58 (74) 100 03/23/20 14:00 106/58 03/23/20 13:30 72 18 86/53 (64) 100 03/23/20 13:00 105/61 03/23/20 13:00 75 22 105/61 (76) 99 03/23/20 12:30 74 18 99/52 (68) 99 03/23/20 12:00 99.0 75 20 97/54 (68) 99 03/23/20 12:00 97/54 03/23/20 12:00 Mechanical Ventilator 03/23/20 12:00 60 03/23/20 11:40 72 03/23/20 11:30 72 20 99/54 (69) 99 03/23/20 11:13 74 20 100 Mechanical Ventilator 35 72 20 35 03/23/20 11:00 73 22 105/63 (77) 100 03/23/20 11:00 105/63 Labs: Laboratory Tests Test 03/24/20 04:00 03/24/20 08:30 White Blood Count 11.6 K/UL (4.8-10.8) H Red Blood Count 3.04 M/UL (4.20-5.40) L Hemoglobin 9.5 G/DL (12.0-16.0) L Hematocrit 29.1 % (37.0-47.0) L Mean Corpuscular Volume 96 FL (80-99) Mean Corpuscular Hemoglobin 31.2 PG (27.0-31.0) H Mean Corpuscular Hemoglobin Concent 32.5 G/DL (32.0-36.0) Red Cell Distribution Width 13.2 % (11.6-14.8) Platelet Count 313 K/UL (150-450) Mean Platelet Volume 7.9 FL (6.5-10.1) Neutrophils (%) (Auto) 81.1 % (45.0-75.0) H Lymphocytes (%) (Auto) 12.2 % (20.0-45.0) L Monocytes (%) (Auto) 4.5 % (1.0-10.0) Eosinophils (%) (Auto) 1.4 % (0.0-3.0) Basophils (%) (Auto) 0.9 % (0.0-2.0) Sodium Level 134 MMOL/L (136-145) L Potassium Level 3.9 MMOL/L (3.5-5.1) Chloride Level 99 MMOL/L (98-107) Carbon Dioxide Level 29 MMOL/L (21-32) Anion Gap 6 mmol/L (5-15) Blood Urea Nitrogen 8 mg/dL (7-18) Creatinine 0.8 MG/DL (0.55-1.30) Estimat Glomerular Filtration Rate > 60 mL/min (>60) Glucose Level 76 MG/DL (74-106) Calcium Level 8.2 MG/DL (8.5-10.1) L Arterial Blood pH 7.443 (7.350-7.450) Arterial Blood Partial Pressure CO2 41.7 mmHg (35.0-45.0) Arterial Blood Partial Pressure O2 53.7 mmHg (75.0-100.0) L Arterial Blood HCO3 27.9 mmol/L (22.0-26.0) H Arterial Blood Oxygen Saturation 89.5 % (95-100) *L Arterial Blood Base Excess 3.5 (-2-2) H Keith Test Positive Objective: GENERAL: An ill-appearing female. NAD sedated on Vent NECK: Supple. No adenopathy. LUNGS: Coarse breath sounds. Moderate air entry. ETT in place; no rhonchi or wheeze CARDIAC: S1, S2. Regular rate and rhythm without murmur. ABDOMEN: Soft, nontender, nondistended. feeding tub EXTREMITIES: No cyanosis, clubbing, or edema. sedated reviewed and edited Micro: Microbiology Date/Time Source Procedure Growth Status 03/22/20 08:05 Blood Blood Culture - Preliminary NO GROWTH AFTER 24 HOURS Resulted 03/22/20 08:00 Sputum Gram Stain - Final Resulted 03/22/20 08:00 Sputum Culture - Preliminary YEAST Resulted Javier Blake MD Mar 24, 2020 10:51
--- NOTE | 2020-03-24 11:45 | NUR ---
NURSE NOTES: Oral and endotracheal suctioning done on patient, thick clear secretions removed. No signs of acute distress.
[2020-03-24] MEDS: Midodrine 10mg tab NG SCH ×2 (13:46→18:01)
[2020-03-24] MEDS: Norepinephrine 4mg/NS Premix 250 ML IV SCH (14:33)
--- NOTE | 2020-03-24 15:44 | General Progress Note ---
Assessment/Plan Problem List: (1) COPD (chronic obstructive pulmonary disease) ICD Codes: J44.9 - Chronic obstructive pulmonary disease, unspecified SNOMED: 68101940 Qualifiers: Qualified Codes: J44.9 - Chronic obstructive pulmonary disease, unspecified (2) Pneumonia ICD Codes: J18.9 - Pneumonia, unspecified organism SNOMED: 001779936 Qualifiers: Qualified Codes: J18.9 - Pneumonia, unspecified organism (3) Fever ICD Codes: R50.9 - Fever, unspecified SNOMED: 242262303 Status: stable, progressing Assessment/Plan: vent support wean per pulm iv abx repeat cultures- sputum and blood follow up labs ivf adjusted skin care turn q2 critical and guarded Subjective ROS Limited/Unobtainable: No HEENT: Reports: no symptoms Cardiovascular: Reports: no symptoms Respiratory: Reports: shortness of breath, sputum Gastrointestinal/Abdominal: Reports: difficulty swallowing Genitourinary: Reports: no symptoms Neurologic/Psychiatric: Reports: anxiety, emotional problems Endocrine: Reports: no symptoms Hematologic/Lymphatic: Reports: anemia Allergies: Coded Allergies: PENICILLINS (Verified Allergy, Unknown, 03/11/20) All Systems: reviewed and negative except above Subjective remains intubated. off pressors. no fevers. on ivf. labs noted Objective Last 24 Hour Vital Signs Date Time Temp Pulse Resp B/P (MAP) Pulse Ox O2 Delivery O2 Flow Rate FiO2 03/24/20 15:00 60 17 90/51 (64) 99 03/24/20 14:00 66 18 107/58 (74) 99 03/24/20 13:00 71 19 100/54 (69) 99 03/24/20 12:00 68 03/24/20 12:00 35 03/24/20 12:00 68 18 94/51 (65) 99 03/24/20 12:00 Mechanical Ventilator 03/24/20 11:14 70 17 97 Mechanical Ventilator 35 71 19 35 03/24/20 11:00 69 16 91/46 (61) 99 03/24/20 10:00 71 19 104/53 (70) 98 03/24/20 09:00 99.1 66 20 112/52 (72) 93 03/24/20 08:05 73 03/24/20 08:00 Mechanical Ventilator 03/24/20 08:00 35 03/24/20 08:00 74 28 105/63 (77) 94 03/24/20 07:41 100 03/24/20 07:21 75 18 97 Mechanical Ventilator 35 73 14 35 35 03/24/20 07:00 65 14 90/54 (66) 100 03/24/20 06:00 69 17 100/54 (69) 99 03/24/20 05:30 69 16 102/59 (73) 99 03/24/20 05:00 64 16 88/48 (61) 95 03/24/20 04:00 35 03/24/20 04:00 Mechanical Ventilator 03/24/20 04:00 77 03/24/20 04:00 98.8 66 20 107/56 (73) 95 03/24/20 03:24 68 22 97 Mechanical Ventilator 35 66 20 35 03/24/20 03:00 64 16 101/57 (72) 97 03/24/20 02:00 74 17 116/64 (81) 98 03/24/20 01:00 64 15 107/63 (78) 98 03/24/20 00:00 35 03/24/20 00:00 98.5 65 16 105/57 (73) 97 03/24/20 00:00 66 03/24/20 00:00 Mechanical Ventilator 03/23/20 23:16 65 16 98 Mechanical Ventilator 35 66 16 35 03/23/20 23:00 66 16 99/57 (71) 96 20 22:30 66 17 102/53 (69) 97 20 22:00 65 17 101/53 (69) 99 03/23/20 21:00 66 18 117/61 (79) 99 20 20:30 65 19 105/54 (71) 99 20 20:00 35 20 20:00 98.8 65 19 105/53 (70) 99 20 20:00 67 03/23/20 20:00 Mechanical Ventilator 03/23/20 19:44 66 17 100 Mechanical Ventilator 35 65 18 35 03/23/20 19:00 70 20 111/59 (76) 98 20 18:30 66 20 111/73 (86) 98 03/23/20 18:00 74 23 120/68 (85) 98 03/23/20 17:30 72 18 100/56 (71) 100 03/23/20 17:00 73 23 99/61 (74) 100 03/23/20 16:01 69 03/23/20 16:00 60 03/23/20 16:00 71 22 93/54 (67) 100 03/23/20 16:00 Mechanical Ventilator Intake and Output 03/23/20 03/24/20 19:00 07:00 Intake Total 1652.08 ml 1495.000 ml Output Total 1675 ml 1140 ml Balance -22.92 ml 355.000 ml Free Water 150 ml IV Total 1292.08 ml 985.000 ml Tube Feeding 360 ml 360 ml Output Urine Total 1675 ml 1140 ml # Bowel Movements 2 Laboratory Tests 03/24/20 04:00: White Blood Count 11.6H, Red Blood Count 3.04L, Hemoglobin 9.5L, Hematocrit 29.1L, Mean Corpuscular Volume 96, Mean Corpuscular Hemoglobin 31.2H, Mean Corpuscular Hemoglobin Concent 32.5, Red Cell Distribution Width 13.2, Platelet Count 313, Mean Platelet Volume 7.9, Neutrophils (%) (Auto) 81.1H, Lymphocytes ( %) (Auto) 12.2L, Monocytes (%) (Auto) 4.5, Eosinophils (%) (Auto) 1.4, Basophils (%) (Auto) 0.9, Sodium Level 134L, Potassium Level 3.9, Chloride Level 99, Carbon Dioxide Level 29, Anion Gap 6, Blood Urea Nitrogen 8, Creatinine 0.8, Estimat Glomerular Filtration Rate > 60, Glucose Level 76, Calcium Level 8.2L 03/24/20 08:30: Arterial Blood pH 7.443, Arterial Blood Partial Pressure CO2 41.7, Arterial Blood Partial Pressure O2 53.7L, Arterial Blood HCO3 27.9H, Arterial Blood Oxygen Saturation 89.5*L, Arterial Blood Base Excess 3.5H, Keith Test Positive Height (Feet): 5 Height (Inches): 5.00 Weight (Pounds): 112 Objective General Appearance: WD/WN, lethargic. intubated Neck: non-tender Cardiovascular: normal rate, regular rhythm Respiratory/Chest: chest wall non-tender, lungs clear, normal breath sounds Abdomen: normal bowel sounds, non tender, soft, no organomegaly Edema: no edema noted Arm (L), no edema noted Arm (R), no edema noted Leg (L), no edema noted Leg (R), no edema noted Pedal (L), no edema noted Pedal (R), no edema noted Generalized Neurologic: alert Isaak Ledesma MD Mar 24, 2020 15:44
--- NOTE | 2020-03-24 16:48 | Surgery Progress Note ---
Surgery Progress Note Subjective Additional Comments On vent support. Tolerating weaning. Labs noted exam stable. Objective Last 24 Hour Vital Signs Date Time Temp Pulse Resp B/P (MAP) Pulse Ox O2 Delivery O2 Flow Rate FiO2 03/24/20 16:00 65 19 101/51 (68) 96 03/24/20 16:00 Mechanical Ventilator 03/24/20 16:00 35 03/24/20 15:24 78 16 100 Mechanical Ventilator 35 76 19 35 03/24/20 15:19 59 03/24/20 15:00 60 17 90/51 (64) 99 03/24/20 14:00 66 18 107/58 (74) 99 03/24/20 13:00 71 19 100/54 (69) 99 03/24/20 12:00 68 03/24/20 12:00 35 03/24/20 12:00 68 18 94/51 (65) 99 03/24/20 12:00 Mechanical Ventilator 03/24/20 11:14 70 17 97 Mechanical Ventilator 35 71 19 35 03/24/20 11:00 69 16 91/46 (61) 99 03/24/20 10:00 71 19 104/53 (70) 98 03/24/20 09:00 99.1 66 20 112/52 (72) 93 03/24/20 08:05 73 03/24/20 08:00 Mechanical Ventilator 03/24/20 08:00 35 03/24/20 08:00 74 28 105/63 (77) 94 03/24/20 07:41 100 03/24/20 07:21 75 18 97 Mechanical Ventilator 35 73 14 35 35 03/24/20 07:00 65 14 90/54 (66) 100 03/24/20 06:00 69 17 100/54 (69) 99 03/24/20 05:30 69 16 102/59 (73) 99 03/24/20 05:00 64 16 88/48 (61) 95 03/24/20 04:00 35 03/24/20 04:00 Mechanical Ventilator 03/24/20 04:00 77 03/24/20 04:00 98.8 66 20 107/56 (73) 95 03/24/20 03:24 68 22 97 Mechanical Ventilator 35 66 20 35 03/24/20 03:00 64 16 101/57 (72) 97 6/20/20 02:00 74 17 116/64 (81) 98 03/24/20 01:00 64 15 107/63 (78) 98 03/24/20 00:00 35 03/24/20 00:00 98.5 65 16 105/57 (73) 97 03/24/20 00:00 66 03/24/20 00:00 Mechanical Ventilator 03/23/20 23:16 65 16 98 Mechanical Ventilator 35 66 16 35 03/23/20 23:00 66 16 99/57 (71) 96 03/23/20 22:30 66 17 102/53 (69) 97 03/23/20 22:00 65 17 101/53 (69) 99 03/23/20 21:00 66 18 117/61 (79) 99 03/23/20 20:30 65 19 105/54 (71) 99 03/23/20 20:00 35 03/23/20 20:00 98.8 65 19 105/53 (70) 99 03/23/20 20:00 67 03/23/20 20:00 Mechanical Ventilator 03/23/20 19:44 66 17 100 Mechanical Ventilator 35 65 18 35 03/23/20 19:00 70 20 111/59 (76) 98 03/23/20 18:30 66 20 111/73 (86) 98 03/23/20 18:00 74 23 120/68 (85) 98 03/23/20 17:30 72 18 100/56 (71) 100 03/23/20 17:00 73 23 99/61 (74) 100 I&O Intake and Output 03/23/20 03/24/20 19:00 07:00 Intake Total 1652.08 ml 1495.000 ml Output Total 1675 ml 1140 ml Balance -22.92 ml 355.000 ml Free Water 150 ml IV Total 1292.08 ml 985.000 ml Tube Feeding 360 ml 360 ml Output Urine Total 1675 ml 1140 ml # Bowel Movements 2 Dressing: other Wound: other Drains: other Cardiovascular: RSR Respiratory: decreased breath sounds Abdomen: soft, present bowel sounds Extremities: no cyanosis Laboratory Tests Test 03/24/20 04:00 03/24/20 08:30 White Blood Count 11.6 K/UL (4.8-10.8) H Red Blood Count 3.04 M/UL (4.20-5.40) L Hemoglobin 9.5 G/DL (12.0-16.0) L Hematocrit 29.1 % (37.0-47.0) L Mean Corpuscular Volume 96 FL (80-99) Mean Corpuscular Hemoglobin 31.2 PG (27.0-31.0) H Mean Corpuscular Hemoglobin Concent 32.5 G/DL (32.0-36.0) Red Cell Distribution Width 13.2 % (11.6-14.8) Platelet Count 313 K/UL (150-450) Mean Platelet Volume 7.9 FL (6.5-10.1) Neutrophils (%) (Auto) 81.1 % (45.0-75.0) H Lymphocytes (%) (Auto) 12.2 % (20.0-45.0) L Monocytes (%) (Auto) 4.5 % (1.0-10.0) Eosinophils (%) (Auto) 1.4 % (0.0-3.0) Basophils (%) (Auto) 0.9 % (0.0-2.0) Sodium Level 134 MMOL/L (136-145) L Potassium Level 3.9 MMOL/L (3.5-5.1) Chloride Level 99 MMOL/L (98-107) Carbon Dioxide Level 29 MMOL/L (21-32) Anion Gap 6 mmol/L (5-15) Blood Urea Nitrogen 8 mg/dL (7-18) Creatinine 0.8 MG/DL (0.55-1.30) Estimat Glomerular Filtration Rate > 60 mL/min (>60) Glucose Level 76 MG/DL (74-106) Calcium Level 8.2 MG/DL (8.5-10.1) L Arterial Blood pH 7.443 (7.350-7.450) Arterial Blood Partial Pressure CO2 41.7 mmHg (35.0-45.0) Arterial Blood Partial Pressure O2 53.7 mmHg (75.0-100.0) L Arterial Blood HCO3 27.9 mmol/L (22.0-26.0) H Arterial Blood Oxygen Saturation 89.5 % (95-100) *L Arterial Blood Base Excess 3.5 (-2-2) H Keith Test Positive Plan Problems: (1) Malnutrition Assessment & Plan: not eating enough TF started adv as tolerated bowel regimen DDAILY ESTIMATED NEEDS: Needs based on Wound, pulmonary / 56kg 25-35 kcals/kg 1183-2265 total kcals 1.25-1.8 g protein/kg 70-100 g total protein 25-30 mL/kg 2080-6106 total fluid mLs NUTRITION DIAGNOSIS: * Swallowing difficulty R/T dysphagia as evidenced by DIRECTOR OF PSYCHIATRY w/ rec for NPO, now on NGT feeds. * Increased kcal/prot/micronutrients needs R/T wound healing as evidenced by pt admitted w/ multiple wounds including full thickness wound @ sacrum, TPI wound @ L Gluteal cheek, and non-Blanchable erythema @ BL heels. CURRENT TF:Jevity 1.2 @30ml/hr ENTERAL NUTRITION RECOMMENDATIONS: JEVITY 1.2 goal of 55ml/hr x24 hrs to provide 1320ml, 1584 kcal, 73g pro, 1065ml free H2O - rec to INCREASE current TF as tolerated to goal of 55ml/hr to better meet est needs. - flush per MD, HOB over 30 degrees ADDITIONAL RECOMMENDATIONS: * Per SNF: HT=66" BV=114xij (03/07/20) * Wound healing: continue MVI, Vit C, and ZnSO4 * VIA NGT-> add TONI BID for wound care TF recs as above * Monitor lytes, replete as needed THIS 60 Y.O.M. WAS ADMITTED WITH ACUTE ISSUES - FEVER, HYPOXIC WITH LOW 02 SATS ON NON-REBREATHER, RESP RATE 18 BPM INITIALLY PER MEDICAL RECORD. PER RN, THE PATIENT HAD A RAPID RESPOSE THIS MORNING (DESAT TO 90S AND RAPID RESP RATE). H/O COPD, CARDIAC DZ, HYPOTHYROIDISM, HTN, ALLERGIC RHINITIS, SCHIZOPHRENIA (ON OLANZAPINE AT SNF), BASELINE NONVERBAL. PER POLST FULL TX BUT NO INFORMATION REGARDING TUBE FEEDING PREFERENCES. AT SNF ON A REGULAR DIET TEXTURE AND THIN LIQUIDS WITH PROSTAT SF DRINK WITH MEALS. NOW ON A REGULAR TEXTURE DIET AND THIN LIQUIDS BUT DID NOT TAKE ANY PO. PER LAURIE EARLY, THE PT UNABLE TO TAKE LARGE PILLS BUT APPEARED TO TOLERATE CRUSHED MEDS WITH APPLESAUCE W/O OVERT ASPIRATION. PATIENT SEEN WITH RTFUNMI. PER RT RESP RATE 22 BPM AND NOT ABLE TO ongoing unintelligible confabulations. Patient did request a sandwich, however, not appropriate for regular texture at this time. VITALS ON 2 L NASAL CANNULA: HR: 73; RR: 20; SP02: 95% Patient's oral hygiene is improving, ongoing poor speech intelligibility which appears to be more due to poor articulation precision/oral motor coordination versus 2/2 dry mouth. CXR on 03/14/20: Findings: Interim considerable improvement of previously demonstrated left lower lobe infiltrate. There is a residual disease in the retrocardiac region as well as generalized reticular interstitial opacities throughout the left mid and lower lung. There is questionably a 3 cm spiculated opacity projected over the apex. Minimal right mid and lower lung reticular opacities are also demonstrated. There is some right midlung atelectasis versus thickening of the minor fissure. The heart size is normal. The pleural spaces are clear Impression: Considerable improvement the persistence of previously demonstrated left mid and lower lung infiltrates, since prior study of 03/11/2020. DIRECTOR OF PSYCHIATRY plans to continue to f/u and monitor Patients readiness for PO trials for diet texture upgrade. RN aware of recommendations, plan, and aspiration precautions sign posted above Patients HOB. RECOMMENDATIONS: 1. Continue Moist Puree with Trion Thick Liquids Diet via 1 to 1 careful handfeeding while implementing posted aspiration precautions - RD recommendations appreciated for diet texture/type 2. Patient requires oral hygiene BID + lip moisturizer. (2) Decubitus skin ulcer Assessment & Plan: Pt presented on admission with multiple pressure injuries. Full thickness Pressure injury Sacrococcygeal area. (L)4cm x (W)2.5cm. Base of wound is fatou with scattered slough ,which was easily removed with gentle friction. Wound is now fatou with 25% soft necrosis at distal base of wound. Small amt sanguineous exudate noted.No odor noted. Periwound erythematous and denuded. Two additional Pressure Injuries noted to R gluteal cheek.(Proximal) Base of wound is purple and indurated(L)3cm x (W)1.5cm. Surrounding erythematous and denuded skin (Distal) R gluteus(L)1.4cm x (W)0.6cm. Base of wound is purple, indurated with surrounding erythematous and denuded skin. DTPI L Gluteal cheek (L)1.5cm x (W)1.3cm. Base of wound is indurated, purple with surrounding non-blanching erythema. Additional scattered areas that are maroon in colour noted to L gluteal cheek. Lateral L Heel boggy with non-blanching erythema with delineated margins. (L) 4cm x (W)4.5cm. Lateral R Heel Boggy with non-Blanchable erythema with delineated margins(L) 2.5cm x (W)2.5cm. Tx.Plan: Cleanse Sacrococcygeal area with saline. Apply TheraHoney , Apply Moisture Barrier Paste to Sacrum, R and L Buttocks. Cover entire Area with Optifoam drsgs. Change every 3 days and prn. Apply Moisture Barrier Paste to R and L Buttocks . Cover with Optifoam drsgs. Changee very 3 days and prn. Apply Cavilon Skin Barrier to R and L Trochanteric areas. Cover with Optifoam drsg. Change every 7 days and prn. Apply Cavilon Skin Barrier to R and L Heels. Cover each heel with Optifoam drsg. Change every 7 days and prn. Reposition at least every 2hours or as tolerated. Off-load heels with Pillow. APM/ERIK Mattress. (3) Pneumonia Assessment & Plan: Lungs: There is mild left lower lobe infiltrate consistent with pneumonia. Pleural space: Unremarkable. No pneumothorax. Heart: The heart size is at the upper limits of normal. Mediastinum: Unremarkable. Bones/joints: Unremarkable. IMPRESSION: There is mild left lower lobe infiltrate consistent with pneumonia. worsening on bipap now will monitor closely intubated now 03/21 wean vent Continue weaning. Will hopefully be extubated potentially. Gases noted. (4) COPD (chronic obstructive pulmonary disease) (5) Fever Eddie Perez Mar 24, 2020 16:48
--- NOTE | 2020-03-24 17:30 | NUR ---
CASE MANAGEMENT:REVIEW SI;COPD. PNA. RESPIRATORY FAILURE~ORALLY INTUBATED. 99.1 66 20 112/52 93% MECH VENT AC 14 TV 500 PEEP 5 FIO2 @ 35% WBC 11.6 H/H 9.5/29.1 ABG: pO2 53.7 HCO3 27.9 O2 SAT 89.5 IS;IVF NS @ 50 ML/HR PROTONIX IV QD MIDODRINE NGT TID VIT C NGT QD ZINC SULFATE NGT QD VANCOMYCIN IV Q12 ZOSYN IV Q8 ALBUTEROL INH Q4HR HEPARIN SQ BID ICU STATUS DCP;PATIENT IS FROM [facility]: AM [facility]S [facility] IVF ADJUSTED
--- NOTE | 2020-03-24 17:30 | NUR ---
NURSE NOTES: Bed bath given to patient, turned and repositioned. Patient is afebrile, no signs of acute distress. Tolerating feeding well, less than 3cc of residual noted.
--- NOTE | 2020-03-24 19:15 | NUR ---
HAND-OFF: Report given to Radha EARLY.
--- NOTE | 2020-03-24 19:20 | NUR ---
NURSE NOTES: Received patient from Leo RN, patient in bed awake, opens eyes. Sinus Rhythm on the heart monitor, HR 65. Orally intubated: ET tube 7/23cm at the lip line, vent settings: AC 14, TV 500, Fi02 35%, PEEP 5. Left Nares NGT is intact and infusing Jevity 1.2 at 30cc/hr no residual. IV site is Left Upper Arm PICC, infusing 1/2 NS at 50cc/hr. Lainez catheter is intact and draining with pale color urine. Bed is locked, placed in lowest position, side rails up x3, bed alarm on, head of bed elevated. On P200 mattress for wound management. Contact isolation maintained and observed. will continue plan of care.
[2020-03-24] MEDS: Dyna-Hex 2% Top Sol 2oz TOPIC SCH (20:14)
--- NOTE | 2020-03-24 20:44 | General Progress Note ---
Assessment/Plan Status: stable, progressing Assessment/Plan: Assessment - Resp failure - dysphagia, NGT dependent - COPD - Anemia - leukocytosis - hypothyroid Recommendations - pulmonary toilet - NGT feeds - elevate HOB - follow labs and exam - PEG placement once stabilized Subjective Allergies: Coded Allergies: PENICILLINS (Verified Allergy, Unknown, 03/11/20) Subjective Above noted seen in ICU d/w RN on vent tolerating NGT feeds Objective Last 24 Hour Vital Signs Date Time Temp Pulse Resp B/P (MAP) Pulse Ox O2 Delivery O2 Flow Rate FiO2 03/24/20 19:59 68 21 100 Mechanical Ventilator 35 67 16 35 03/24/20 19:00 60 17 100/57 (71) 98 03/24/20 18:00 63 16 101/62 (75) 96 03/24/20 17:00 66 18 101/55 (70) 96 03/24/20 16:00 99.3 65 19 101/51 (68) 96 03/24/20 16:00 Mechanical Ventilator 03/24/20 16:00 35 03/24/20 15:24 78 16 100 Mechanical Ventilator 35 76 19 35 03/24/20 15:19 59 03/24/20 15:00 60 17 90/51 (64) 99 03/24/20 14:00 66 18 107/58 (74) 99 03/24/20 13:00 71 19 100/54 (69) 99 03/24/20 12:00 68 03/24/20 12:00 35 03/24/20 12:00 68 18 94/51 (65) 99 03/24/20 12:00 Mechanical Ventilator 03/24/20 11:14 70 17 97 Mechanical Ventilator 35 71 19 35 03/24/20 11:00 69 16 91/46 (61) 99 03/24/20 10:00 71 19 104/53 (70) 98 03/24/20 09:00 99.1 66 20 112/52 (72) 93 03/24/20 08:05 73 03/24/20 08:00 Mechanical Ventilator 03/24/20 08:00 35 03/24/20 08:00 74 28 105/63 (77) 94 03/24/20 07:41 100 03/24/20 07:21 75 18 97 Mechanical Ventilator 35 73 14 35 35 03/24/20 07:00 65 14 90/54 (66) 100 03/24/20 06:00 69 17 100/54 (69) 99 03/24/20 05:30 69 16 102/59 (73) 99 03/24/20 05:00 64 16 88/48 (61) 95 03/24/20 04:00 35 03/24/20 04:00 Mechanical Ventilator 03/24/20 04:00 77 03/24/20 04:00 98.8 66 20 107/56 (73) 95 03/24/20 03:24 68 22 97 Mechanical Ventilator 35 66 20 35 03/24/20 03:00 64 16 101/57 (72) 97 03/24/20 02:00 74 17 116/64 (81) 98 03/24/20 01:00 64 15 107/63 (78) 98 03/24/20 00:00 35 03/24/20 00:00 98.5 65 16 105/57 (73) 97 03/24/20 00:00 66 03/24/20 00:00 Mechanical Ventilator 03/23/20 23:16 65 16 98 Mechanical Ventilator 35 66 16 35 03/23/20 23:00 66 16 99/57 (71) 96 03/23/20 22:30 66 17 102/53 (69) 97 03/23/20 22:00 65 17 101/53 (69) 99 03/23/20 21:00 66 18 117/61 (79) 99 Intake and Output 03/23/20 03/24/20 19:00 07:00 Intake Total 1652.08 ml 1495.000 ml Output Total 1675 ml 1140 ml Balance -22.92 ml 355.000 ml Free Water 150 ml IV Total 1292.08 ml 985.000 ml Tube Feeding 360 ml 360 ml Output Urine Total 1675 ml 1140 ml # Bowel Movements 2 Laboratory Tests 03/24/20 04:00: White Blood Count 11.6H, Red Blood Count 3.04L, Hemoglobin 9.5L, Hematocrit 29.1L, Mean Corpuscular Volume 96, Mean Corpuscular Hemoglobin 31.2H, Mean Corpuscular Hemoglobin Concent 32.5, Red Cell Distribution Width 13.2, Platelet Count 313, Mean Platelet Volume 7.9, Neutrophils (%) (Auto) 81.1H, Lymphocytes ( %) (Auto) 12.2L, Monocytes (%) (Auto) 4.5, Eosinophils (%) (Auto) 1.4, Basophils (%) (Auto) 0.9, Sodium Level 134L, Potassium Level 3.9, Chloride Level 99, Carbon Dioxide Level 29, Anion Gap 6, Blood Urea Nitrogen 8, Creatinine 0.8, Estimat Glomerular Filtration Rate > 60, Glucose Level 76, Calcium Level 8.2L 03/24/20 08:30: Arterial Blood pH 7.443, Arterial Blood Partial Pressure CO2 41.7, Arterial Blood Partial Pressure O2 53.7L, Arterial Blood HCO3 27.9H, Arterial Blood Oxygen Saturation 89.5*L, Arterial Blood Base Excess 3.5H, Keith Test Positive Height (Feet): 5 Height (Inches): 5.00 Weight (Pounds): 112 Objective Thin WW NCAT supple coarse BS RR abd soft NT ND no edema Douglas Tucker MD Mar 24, 2020 20:44
--- NOTE | 2020-03-24 21:34 | NUR ---
NURSE NOTES: Turned and repositioned patient in bed. oral care provided. meds given. frequent visual checks continued.
[2020-03-25] VITALS (32 sets, daily range): BP systolic 93–137; BP diastolic 49–74
--- NOTE | 2020-03-25 | NUR ---
NURSE NOTES: Repositioned patient in bed. Oral and endotracheal suctioning done on patient, thick clear secretions removed. No signs of acute distress. will continue plan of care.
--- NOTE | 2020-03-25 02:00 | NUR ---
NURSE NOTES: Bed bath given. Wound care done. on P200 mattress for wound management. comfort measure provided. will continue plan of care.
[2020-03-25] MEDS: Albuterol 90mcg Inhaler 8gm INH SCH ×6 (02:43→23:16)
--- NOTE | 2020-03-25 04:00 | NUR ---
NURSE NOTES: patient Orally intubated: ET tube 7/23cm at the lip line, vent settings: AC 14, TV 500, Fi02 35%, PEEP 5. Left Nares NGT is intact and infusing Jevity 1.2 at 30cc/hr no residual. IV site is Left Upper Arm PICC, infusing 1/2 NS at 50cc/hr. Lainez catheter is intact and draining with pale color urine. Bed is locked, placed in lowest position, side rails up x3, bed alarm on, head of bed elevated. On P200 mattress for wound management. Contact isolation maintained and observed. will continue plan of care.
--- NOTE | 2020-03-25 06:00 | NUR ---
NURSE NOTES: patient Orally intubated: ET tube 7/23cm at the lip line, vent settings: AC 14, TV 500, Fi02 35%, PEEP 5. Left Nares NGT is intact and infusing Jevity 1.2 at 30cc/hr no residual. IV site is Left Upper Arm PICC, infusing 1/2 NS at 50cc/hr. no fever, no n/v. will continue plan of care.
[2020-03-25] MEDS: Piperacillin/Tazobactam 3.375 GM in NS 110 ML IVPB SCH ×3 (06:06→21:00)
--- NOTE | 2020-03-25 07:15 | NUR ---
HAND-OFF: Report given to Trang ERALY.
--- NOTE | 2020-03-25 07:30 | NUR ---
NURSE NOTES: Received change of shift report from Radha EARLY. Pt is awake, slightly drowsy, orally intubated and able to follow simple commands. ETT 7.0 at 23cm right lipline with vent settings AC14, VT500, Peep 5, FIO2 35% at 96% O2Sat. Bilateral diminished lungs sounds with rhonchi are noted on auscultation. NSR on cardiac/vascular sonographer, HR80 with weak peripheral pulses. Temp 98.3F axillary. Left nare NGT with feeding Jevity 1.2 is infusing at 30ml/hour, with no noted residual. Abdomen is round, soft, nontender to touch with hypoactive bowel sounds. Lainez catheter is present draining clear/yellow urine to gravity. Pt has left upper arm double lumen PICC line, dressing dry/intact, line is patent, with IV fluid 0.45%NS infusing at 50ml/hour. Skin alterations are noted, sacral full thickness pressure ulcer and bilateral heels DTI, all sites are covered with optifoam dressings. Pt is on P200 pressure releasing mattress. HOB at 30degrees, bed locked, in lowest position, three side rails up, and call light is placed within easy reach. Will continue to monitor pt, and follow plan of care per MD orders and protocol.
[2020-03-25 07:50] LABS: ALANINE AMINOTRANSFERASE 25 U/L (12-78); ALBUMIN 1.5 G/DL (3.4-5.0); ALBUMIN/GLOBULIN RATIO 0.3 (1.0-2.7); ALKALINE PHOSPHATASE 77 U/L (46-116); ANION GAP 7 mmol/L (5-15); ASPARTATE AMINO TRANSFERASE 18 U/L (15-37); BILIRUBIN,TOTAL 0.2 MG/DL (0.2-1.0); BLOOD UREA NITROGEN 7 mg/dL (7-18); CALCIUM 8.2 MG/DL (8.5-10.1); CARBON DIOXIDE 29 MMOL/L (21-32); CHLORIDE 101 MMOL/L (98-107); CREATININE 0.8 MG/DL (0.55-1.30); POTASSIUM 3.6 MMOL/L (3.5-5.1); SODIUM 137 MMOL/L (136-145)
--- NOTE | 2020-03-25 08:22 | NUR ---
RESPIRATORY NOTES: Began weaning Patient at 0820. Placed patient on PS +8 PEEP +5 Fio2 35%. Patient current RR 25, RSBI 71, SPON VT 359, VE 8.6, HR 73, SATS 97%. Patient is calm and understands what is going on. Will continue to monitor.
--- NOTE | 2020-03-25 08:32 | NUR ---
RD ASSESSMENT & RECOMMENDATIONS SEE CARE ACTIVITY FOR COMPLETE ASSESSMENT DAILY ESTIMATED NEEDS: Needs based on Wound, Critical care / 56kg 25-30 kcals/kg 8717-7509 total kcals 1.25-2 g protein/kg 70-112 g total protein 25-30 mL/kg 0167-7770 total fluid mLs NUTRITION DIAGNOSIS: * Swallowing difficulty R/T dysphagia as evidenced by DISTRIBUTION ENGINEERING TECHNOLOGIST w/ rec for NPO, now on NGT feeds. * Increased kcal/prot/micronutrients needs R/T wound healing as evidenced by pt admitted w/ multiple wounds including full thickness wound @ sacrum, DTPI wound @ L Gluteal cheek, and non-Blanchable erythema @ BL heels. CURRENT TF:Jevity 1.2 @30ml/hr ENTERAL NUTRITION RECOMMENDATIONS: Jevity 1.2 goal of 55ml/hr x24 hrs to provide 1320ml, 1584 kcal, 73g pro, 1065ml free H2O - Advance current TF of Jevity 1.2 as tolerated 10ml/hr q4-6 hrs to goal of 55ml/hr x24 hrs - flush per MD, HOB over 30 degrees Monitor BG and need for TF change to carb control formula. ADDITIONAL RECOMMENDATIONS: * Per SNF: HT=66" AN=373gpp (03/07/20) * Wound healing: continue MVI, Vit C, and ZnSO4 * VIA NGT-> add TONI BID for wound care TF recs as above * Monitor lytes, replete as needed -> Monitor BG, need for NISS w/ TF's
[2020-03-25] MEDS ORDERED: NS 275ml ONE (08:40)
[2020-03-25] MEDS ORDERED: 1/2 NS 1000ml IV ONE (08:40)
--- NOTE | 2020-03-25 09:00 | NUR ---
NURSE NOTES: AM meds were administered. Oral care was done. VS remain stable. Pt is currently being weaned off AC vent settings, while on PS 8, Peep 5, FIO2 35%, currently at 96-98% O2Sat.
--- NOTE | 2020-03-25 09:04 | Critical Care Progress Note ---
Assessment/Plan Assessment/Plan IMPRESSION: 1. COPD 2. Hypercapnia and hypoxemia. 3. Pneumonia, likely group home acquired. COVID negative 4. Hypothyroidism. 5. History of allergies. 6. Severe protein-calorie malnutrition. 7. Mild leukocytosis. 8. acute respiratory failure care noted IV antibiotics/ all reviewed respiratory care as is reviewed Ventilatory support as is; weaning as able monitor for CO2 retenion maintain meds DVT prophylaxis; supportive care suction as needed; monitor secretions aspiration precautions position change and off load oxygen therapy as is hope to extubate soon monitor nutrition medications/laboratory data/nursing notes/ICU care reviewed in detail note reviewed and edited care discussed with RN and RT ICU time spent >40 minutes Critical Care - Subjective Interval Events: on vent weaning trials noted ICU care reviewed flow sheets reviewed ROS Limited/Unobtainable: Yes Condition: critical EKG Rhythm: Sinus Rhythm Residuals: minimal Tube Feeding Tolerated: yes I&O: Intake and Output 03/24/20 03/25/20 19:00 07:00 Intake Total 1525.83 ml 1545.000 ml Output Total 1525 ml 1210 ml Balance 0.83 ml 335.000 ml Free Water 200 ml 200 ml IV Total 965.83 ml 985.000 ml Tube Feeding 360 ml 360 ml Output Urine Total 1525 ml 1210 ml # Bowel Movements 2 3 Critical Care - Objective ET-Tube: 7.0 ET Position: 23 Last 24 Hour Vital Signs Date Time Temp Pulse Resp B/P (MAP) Pulse Ox O2 Delivery O2 Flow Rate FiO2 03/25/20 08:22 100 03/25/20 07:29 74 26 100 Mechanical Ventilator 35 68 24 35 35 03/25/20 07:00 63 16 104/62 (76) 92 03/25/20 06:00 57 14 100/62 (75) 100 03/25/20 05:30 63 18 106/71 (83) 100 03/25/20 05:00 63 16 103/71 (82) 100 03/25/20 04:30 62 17 111/64 (80) 100 03/25/20 04:00 68 03/25/20 04:00 Mechanical Ventilator 03/25/20 04:00 35 03/25/20 04:00 98.2 59 17 102/59 (73) 100 03/25/20 03:30 57 16 93/49 (64) 100 03/25/20 03:00 60 16 97/54 (68) 100 03/25/20 02:43 68 19 100 Mechanical Ventilator 35 67 18 35 03/25/20 02:30 62 17 103/61 (75) 100 03/25/20 02:00 74 19 122/69 (86) 100 03/25/20 01:30 66 15 101/56 (71) 98 03/25/20 01:00 67 17 105/61 (76) 99 03/25/20 00:00 98.7 67 16 106/59 (75) 99 03/25/20 00:00 Mechanical Ventilator 03/25/20 00:00 70 03/24/20 23:00 66 17 108/61 (77) 99 03/24/20 22:36 64 16 100 Mechanical Ventilator 35 64 18 35 03/24/20 22:30 65 17 97/52 (67) 100 03/24/20 22:00 68 18 102/55 (71) 99 03/24/20 21:00 66 18 94/52 (66) 99 03/24/20 20:30 63 17 111/60 (77) 98 03/24/20 20:00 63 03/24/20 20:00 99.0 69 23 125/70 (88) 100 03/24/20 20:00 Mechanical Ventilator 03/24/20 20:00 35 03/24/20 19:59 68 21 100 Mechanical Ventilator 35 67 16 35 03/24/20 19:00 60 17 100/57 (71) 98 03/24/20 18:00 63 16 101/62 (75) 96 03/24/20 17:00 66 18 101/55 (70) 96 03/24/20 16:00 99.3 65 19 101/51 (68) 96 20 16:00 Mechanical Ventilator 03/24/20 16:00 35 03/24/20 15:24 78 16 100 Mechanical Ventilator 35 76 19 35 03/24/20 15:19 59 03/24/20 15:00 60 17 90/51 (64) 99 20 14:00 66 18 107/58 (74) 99 20 13:00 71 19 100/54 (69) 99 03/24/20 12:00 68 03/24/20 12:00 35 03/24/20 12:00 68 18 94/51 (65) 99 6/20/20 12:00 Mechanical Ventilator 03/24/20 11:14 70 17 97 Mechanical Ventilator 35 71 19 35 03/24/20 11:00 69 16 91/46 (61) 99 03/24/20 10:00 71 19 104/53 (70) 98 Labs: Laboratory Tests Test 03/25/20 04:39 Sodium Level 137 MMOL/L (136-145) Potassium Level 3.6 MMOL/L (3.5-5.1) Chloride Level 101 MMOL/L (98-107) Carbon Dioxide Level 29 MMOL/L (21-32) Anion Gap 7 mmol/L (5-15) Blood Urea Nitrogen 7 mg/dL (7-18) Creatinine 0.8 MG/DL (0.55-1.30) Estimat Glomerular Filtration Rate > 60 mL/min (>60) Glucose Level 70 MG/DL (74-106) L Calcium Level 8.2 MG/DL (8.5-10.1) L Total Bilirubin 0.2 MG/DL (0.2-1.0) Aspartate Amino Transf (AST/SGOT) 18 U/L (15-37) Alanine Aminotransferase (ALT/SGPT) 25 U/L (12-78) Alkaline Phosphatase 77 U/L (46-116) Total Protein 5.8 G/DL (6.4-8.2) L Albumin 1.5 G/DL (3.4-5.0) L Globulin 4.3 g/dL Albumin/Globulin Ratio 0.3 (1.0-2.7) L Objective: GENERAL: An ill-appearing female. NAD sedated on Vent NECK: Supple. No adenopathy. LUNGS: Coarse breath sounds. Moderate air entry. ETT in place; no rhonchi or wheeze CARDIAC: S1, S2. Regular rate and rhythm without murmur. ABDOMEN: Soft, nontender, nondistended. feeding tub EXTREMITIES: No cyanosis, clubbing, or edema. sedated reviewed and edited Javier Blake MD Mar 25, 2020 09:04
[2020-03-25] MEDS: Multivitamins W/Minerals 15 ML UDC NG SCH (09:42)
[2020-03-25] MEDS: Pantoprazole Inj IVP SCH (09:42)
[2020-03-25] MEDS: Heparin 5000 units/ml inj SUBQ SCH ×2 (09:42→20:56)
[2020-03-25] MEDS: Zinc Sulfate 220mg NG SCH (09:43)
[2020-03-25] MEDS: Vancomycin 1 GM in NS 275 ML IVPB SCH (09:43)
[2020-03-25] MEDS: Lactulose 20gm/30ml UDC NG SCH ×3 (09:43→18:05)
[2020-03-25] MEDS: Midodrine 10mg tab NG SCH ×3 (09:44→18:05)
[2020-03-25] MEDS: Ascorbic Acid 500mg tab NG SCH (09:44)
--- NOTE | 2020-03-25 10:00 | NUR ---
NURSE NOTES: ABGs were drawn by RT, per MD order and resulted reported to Dr. Blake. MD also notified regarding moderate amount of thick/benitez secretions. Per MD, pt to remain intubated at this time. RT notified.
--- NOTE | 2020-03-25 11:21 | NUR ---
RESPIRATORY NOTES: Weaning stopped due to desaturation. Placed back on previous settings.
--- NOTE | 2020-03-25 11:59 | Infectious Diseases Prog Note ---
Assessment/Plan Assessment/Plan A: 1. Pneumonia, COVID-19 test is negative x2. 2. Hypothyroidism. 3. COPD. 4. Schizophrenia. 5. Leukocytosis, improving. 6. 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 Discontinue IV vancomycin 2. Continue Zosyn 3. Case was d/w RN Subjective ROS Limited/Unobtainable: Yes Constitutional: Denies: fever Respiratory: Reports: other - copious respiratory secretions Allergies: Coded Allergies: PENICILLINS (Verified Allergy, Unknown, 03/11/20) Objective Vital Signs Last 24 Hour Vital Signs Date Time Temp Pulse Resp B/P (MAP) Pulse Ox O2 Delivery O2 Flow Rate FiO2 03/25/20 11:11 78 25 100 Mechanical Ventilator 35 70 26 35 03/25/20 11:00 72 27 134/74 (94) 97 03/25/20 10:00 73 26 113/71 (85) 96 03/25/20 09:00 70 27 118/64 (82) 99 03/25/20 08:22 100 03/25/20 08:00 98.3 64 25 98/56 (70) 93 03/25/20 08:00 Mechanical Ventilator 03/25/20 08:00 61 03/25/20 08:00 35 03/25/20 07:29 74 26 100 Mechanical Ventilator 35 68 24 35 35 03/25/20 07:00 63 16 104/62 (76) 92 03/25/20 06:00 57 14 100/62 (75) 100 03/25/20 05:30 63 18 106/71 (83) 100 03/25/20 05:00 63 16 103/71 (82) 100 03/25/20 04:30 62 17 111/64 (80) 100 03/25/20 04:00 68 03/25/20 04:00 Mechanical Ventilator 03/25/20 04:00 35 03/25/20 04:00 98.2 59 17 102/59 (73) 100 03/25/20 03:30 57 16 93/49 (64) 100 03/25/20 03:00 60 16 97/54 (68) 100 03/25/20 02:43 68 19 100 Mechanical Ventilator 35 67 18 35 03/25/20 02:30 62 17 103/61 (75) 100 03/25/20 02:00 74 19 122/69 (86) 100 03/25/20 01:30 66 15 101/56 (71) 98 20 01:00 67 17 105/61 (76) 99 03/25/20 00:00 98.7 67 16 106/59 (75) 99 20 00:00 Mechanical Ventilator 03/25/20 00:00 70 03/24/20 23:00 66 17 108/61 (77) 99 03/24/20 22:36 64 16 100 Mechanical Ventilator 35 64 18 35 03/24/20 22:30 65 17 97/52 (67) 100 03/24/20 22:00 68 18 102/55 (71) 99 03/24/20 21:00 66 18 94/52 (66) 99 03/24/20 20:30 63 17 111/60 (77) 98 03/24/20 20:00 63 03/24/20 20:00 99.0 69 23 125/70 (88) 100 03/24/20 20:00 Mechanical Ventilator 03/24/20 20:00 35 03/24/20 19:59 68 21 100 Mechanical Ventilator 35 67 16 35 03/24/20 19:00 60 17 100/57 (71) 98 03/24/20 18:00 63 16 101/62 (75) 96 03/24/20 17:00 66 18 101/55 (70) 96 03/24/20 16:00 99.3 65 19 101/51 (68) 96 03/24/20 16:00 Mechanical Ventilator 03/24/20 16:00 35 03/24/20 15:24 78 16 100 Mechanical Ventilator 35 76 19 35 03/24/20 15:19 59 03/24/20 15:00 60 17 90/51 (64) 99 03/24/20 14:00 66 18 107/58 (74) 99 20 13:00 71 19 100/54 (69) 99 03/24/20 12:00 68 03/24/20 12:00 35 03/24/20 12:00 68 18 94/51 (65) 99 03/24/20 12:00 Mechanical Ventilator Height (Feet): 5 Height (Inches): 5.00 Weight (Pounds): 144 HEENT: other - orally intubated Respiratory/Chest: decreased breath sounds, other - on ventilator Cardiovascular: normal rate, other - PICC line Abdomen: soft, non tender, other - NG tube Extremities: no edema Skin: ulcers, other - sacral Neurologic/Psychiatric: unresponsiveness Laboratory Tests Test 03/25/20 04:39 03/25/20 10:08 Sodium Level 137 MMOL/L (136-145) Potassium Level 3.6 MMOL/L (3.5-5.1) Chloride Level 101 MMOL/L (98-107) Carbon Dioxide Level 29 MMOL/L (21-32) Anion Gap 7 mmol/L (5-15) Blood Urea Nitrogen 7 mg/dL (7-18) Creatinine 0.8 MG/DL (0.55-1.30) Estimat Glomerular Filtration Rate > 60 mL/min (>60) Glucose Level 70 MG/DL (74-106) L Calcium Level 8.2 MG/DL (8.5-10.1) L Total Bilirubin 0.2 MG/DL (0.2-1.0) Aspartate Amino Transf (AST/SGOT) 18 U/L (15-37) Alanine Aminotransferase (ALT/SGPT) 25 U/L (12-78) Alkaline Phosphatase 77 U/L (46-116) Total Protein 5.8 G/DL (6.4-8.2) L Albumin 1.5 G/DL (3.4-5.0) L Globulin 4.3 g/dL Albumin/Globulin Ratio 0.3 (1.0-2.7) L Arterial Blood pH 7.413 (7.350-7.450) Arterial Blood Partial Pressure CO2 39.4 mmHg (35.0-45.0) Arterial Blood Partial Pressure O2 70.6 mmHg (75.0-100.0) L Arterial Blood HCO3 24.6 mmol/L (22.0-26.0) Arterial Blood Oxygen Saturation 93.9 % (95-100) L Arterial Blood Base Excess 0.1 (-2-2) Keith Test Positive Current Medications Medications (Trade) Dose Ordered Sig/Ranjeet Route PRN Reason Start Time Stop Time Status Last Admin Dose Admin Acetaminophen (Tylenol) 650 mg Q4H PRN NG Mild Pain (1-3)/Fever > 100.5 03/22/20 15:30 04/10/20 19:29 Albuterol Sulfate (Proventil MDI) 2 puff Q4HRT INH 03/18/20 15:00 06/13/20 02:59 03/25/20 10:15 Ascorbic Acid (Vitamin C) 500 mg DAILY NG 03/23/20 09:00 04/11/20 08:59 03/25/20 09:44 Atropine Sulfate (Atropine) 1 mg Q1H PRN IVP HR <40BPM 03/18/20 13:30 04/17/20 13:29 03/20/20 08:01 Chlorhexidine Gluconate (Mary-Hex 2%) 1 applic DAILY@2000 TOPIC 03/21/20 20:00 06/19/20 19:59 03/24/20 20:14 Heparin Sodium (Porcine) (Heparin 5000 units/ml) 5,000 units EVERY 12 HOURS SUBQ 03/18/20 21:00 04/25/20 20:59 03/25/20 09:42 Lactulose (Cephulac) 30 gm THREE TIMES A DAY NG 03/22/20 18:00 04/18/20 09:14 03/25/20 09:43 Levothyroxine Sodium (Synthroid) 50 mcg DAILY IV 03/19/20 09:00 04/17/20 13:14 03/25/20 09:42 Loratadine (Claritin 10mg) 10 mg DAILY ORAL 03/23/20 09:00 04/11/20 08:59 03/25/20 09:44 Magnesium Hydroxide (Mom) 30 ml HSPRN PRN NG Constipation 03/22/20 15:30 04/17/20 13:59 Midodrine (Pro-Amatine) 10 mg THREE TIMES A DAY NG 03/24/20 13:00 06/21/20 08:59 03/25/20 09:44 Multivitamins (Multivitamins W/ Minerals 15ml Liquid) 15 ml DAILY NG 03/23/20 09:00 04/11/20 08:59 03/25/20 09:42 Norepinephrine Bitartrate 250 ml @ 0 mls/hr Q24H IV 03/23/20 14:52 06/21/20 14:51 Pantoprazole (Protonix) 40 mg DAILY IVP 03/23/20 09:00 04/22/20 08:59 03/25/20 09:42 Piperacillin Sod/ Tazobactam Sod 3.375 gm/Sodium Chloride 110 ml @ 27.5 mls/hr EVERY 8 HOURS IVPB 03/18/20 14:00 03/28/20 13:59 03/25/20 06:06 Sodium Chloride 1,000 ml @ 50 mls/hr Q20H IV 03/23/20 15:15 04/22/20 15:14 03/25/20 06:06 Vancomycin HCl (Vanco pharmacy to dose) 1 ea DAILY PRN MISC Per rx protocol 03/18/20 14:00 04/17/20 13:59 Vancomycin HCl 1 gm/Sodium Chloride 275 ml @ 183.708 mls/hr Q12H IVPB 03/20/20 21:00 03/28/20 20:59 03/25/20 09:43 Zinc Sulfate (Zinc Sulfate) 220 mg DAILY NG 03/23/20 09:00 06/10/20 08:59 03/25/20 09:43 Domingo Polo MD Mar 25, 2020 11:59
--- NOTE | 2020-03-25 12:00 | NUR ---
NURSE NOTES: Pt remains on AC vent settings from this morning with FIO2 currently raised to 45%, at 96% O2Sat. VS remain stable. Pt remains afebrile. Pt is tolerating NGT feeding, with no noted residual. Lainez catheter continues to drain 50-80ml yellow/clear urine hourly.
--- NOTE | 2020-03-25 12:16 | Diagnostic Imaging Report ---
EXAM: XR Chest, 1 View CLINICAL HISTORY: F/U TECHNIQUE: Frontal view of the chest. COMPARISON: Chest x-ray dated 03/21/20 FINDINGS: Lungs: No significant interval change in the interstitial opacities in bilateral lungs, most prominent in the left upper lung. No significant change in subsegmental atelectasis in the lung bases and the retrocardiac consolidation. Pleural space: Unremarkable. The costophrenic angles are sharp. No visible pneumothorax. Heart: Unremarkable. No cardiomegaly. Mediastinum: Unremarkable. Bones/joints: Degenerative changes throughout the visualized spine and shoulder joints. Vasculature: Atherosclerotic calcifications within the aortic arch. Tubes, lines and devices: Stable positioning of the endotracheal tube, with the tip 4 cm above the matteo. NG tube extends below the diaphragm and its tip is not visualized. Telemetry leads overlie the thorax. IMPRESSION: 1. No significant interval change in the interstitial opacities in bilateral lungs, most prominent in the left upper lung. 2. No significant change in subsegmental atelectasis in the lung bases and the retrocardiac consolidation.
--- NOTE | 2020-03-25 14:00 | NUR ---
NURSE NOTES: VS remain stable. Pt was repositioned. Pt was suctioned, with output of moderate/thick/benitez secretions. Oral care was done. Pt is resting in no apparent distress. O2Sat is currently 96-98% while on FIO2 45%. Pt is tolerating NGT feeding at goal rate, with no noted residuals. Feeding bag was switched to a new bag.
[2020-03-25] MEDS: Norepinephrine 4mg/NS Premix 250 ML IV SCH (14:52)
--- NOTE | 2020-03-25 15:11 | Surgery Progress Note ---
Surgery Progress Note Subjective Additional Comments doing well with weaning labs noted exam stable still with lots of secretions once secretions improve can work on extubation Objective Last 24 Hour Vital Signs Date Time Temp Pulse Resp B/P (MAP) Pulse Ox O2 Delivery O2 Flow Rate FiO2 03/25/20 14:00 65 18 108/56 (73) 100 03/25/20 13:00 65 16 102/60 (74) 99 03/25/20 12:30 62 15 93/54 (67) 97 03/25/20 12:00 Mechanical Ventilator 03/25/20 12:00 81 03/25/20 12:00 98.6 75 23 123/68 (86) 95 03/25/20 12:00 45 03/25/20 11:11 78 25 100 Mechanical Ventilator 35 70 26 35 03/25/20 11:00 72 27 134/74 (94) 97 03/25/20 10:00 73 26 113/71 (85) 96 03/25/20 09:00 70 27 118/64 (82) 99 03/25/20 08:22 100 03/25/20 08:00 98.3 64 25 98/56 (70) 93 03/25/20 08:00 Mechanical Ventilator 03/25/20 08:00 61 03/25/20 08:00 35 03/25/20 07:29 74 26 100 Mechanical Ventilator 35 68 24 35 35 03/25/20 07:00 63 16 104/62 (76) 92 03/25/20 06:00 57 14 100/62 (75) 100 03/25/20 05:30 63 18 106/71 (83) 100 03/25/20 05:00 63 16 103/71 (82) 100 03/25/20 04:30 62 17 111/64 (80) 100 03/25/20 04:00 68 03/25/20 04:00 Mechanical Ventilator 03/25/20 04:00 35 03/25/20 04:00 98.2 59 17 102/59 (73) 100 03/25/20 03:30 57 16 93/49 (64) 100 03/25/20 03:00 60 16 97/54 (68) 100 03/25/20 02:43 68 19 100 Mechanical Ventilator 35 67 18 35 03/25/20 02:30 62 17 103/61 (75) 100 03/25/20 02:00 74 19 122/69 (86) 100 03/25/20 01:30 66 15 101/56 (71) 98 03/25/20 01:00 67 17 105/61 (76) 99 03/25/20 00:00 98.7 67 16 106/59 (75) 99 03/25/20 00:00 Mechanical Ventilator 03/25/20 00:00 70 03/24/20 23:00 66 17 108/61 (77) 99 03/24/20 22:36 64 16 100 Mechanical Ventilator 35 64 18 35 03/24/20 22:30 65 17 97/52 (67) 100 03/24/20 22:00 68 18 102/55 (71) 99 03/24/20 21:00 66 18 94/52 (66) 99 03/24/20 20:30 63 17 111/60 (77) 98 03/24/20 20:00 63 03/24/20 20:00 99.0 69 23 125/70 (88) 100 03/24/20 20:00 Mechanical Ventilator 03/24/20 20:00 35 03/24/20 19:59 68 21 100 Mechanical Ventilator 35 67 16 35 03/24/20 19:00 60 17 100/57 (71) 98 03/24/20 18:00 63 16 101/62 (75) 96 03/24/20 17:00 66 18 101/55 (70) 96 03/24/20 16:00 99.3 65 19 101/51 (68) 96 03/24/20 16:00 Mechanical Ventilator 03/24/20 16:00 35 03/24/20 15:24 78 16 100 Mechanical Ventilator 35 76 19 35 03/24/20 15:19 59 I&O Intake and Output 03/24/20 03/25/20 19:00 07:00 Intake Total 1525.83 ml 1572.500 ml Output Total 1525 ml 1210 ml Balance 0.83 ml 362.500 ml Free Water 200 ml 200 ml IV Total 965.83 ml 1012.500 ml Tube Feeding 360 ml 360 ml Output Urine Total 1525 ml 1210 ml # Bowel Movements 2 3 Dressing: other Wound: other Drains: other Cardiovascular: RSR Respiratory: decreased breath sounds Abdomen: soft, non-tender, present bowel sounds Extremities: no cyanosis Laboratory Tests Test 03/25/20 04:39 03/25/20 10:08 Sodium Level 137 MMOL/L (136-145) Potassium Level 3.6 MMOL/L (3.5-5.1) Chloride Level 101 MMOL/L (98-107) Carbon Dioxide Level 29 MMOL/L (21-32) Anion Gap 7 mmol/L (5-15) Blood Urea Nitrogen 7 mg/dL (7-18) Creatinine 0.8 MG/DL (0.55-1.30) Estimat Glomerular Filtration Rate > 60 mL/min (>60) Glucose Level 70 MG/DL (74-106) L Calcium Level 8.2 MG/DL (8.5-10.1) L Total Bilirubin 0.2 MG/DL (0.2-1.0) Aspartate Amino Transf (AST/SGOT) 18 U/L (15-37) Alanine Aminotransferase (ALT/SGPT) 25 U/L (12-78) Alkaline Phosphatase 77 U/L (46-116) Total Protein 5.8 G/DL (6.4-8.2) L Albumin 1.5 G/DL (3.4-5.0) L Globulin 4.3 g/dL Albumin/Globulin Ratio 0.3 (1.0-2.7) L Arterial Blood pH 7.413 (7.350-7.450) Arterial Blood Partial Pressure CO2 39.4 mmHg (35.0-45.0) Arterial Blood Partial Pressure O2 70.6 mmHg (75.0-100.0) L Arterial Blood HCO3 24.6 mmol/L (22.0-26.0) Arterial Blood Oxygen Saturation 93.9 % (95-100) L Arterial Blood Base Excess 0.1 (-2-2) Keith Test Positive Plan Problems: (1) Malnutrition Assessment & Plan: not eating enough TF started adv as tolerated bowel regimen DDAILY ESTIMATED NEEDS: Needs based on Wound, pulmonary / 56kg 25-35 kcals/kg 2271-4209 total kcals 1.25-1.8 g protein/kg 70-100 g total protein 25-30 mL/kg 6424-0479 total fluid mLs NUTRITION DIAGNOSIS: * Swallowing difficulty R/T dysphagia as evidenced by CUSTOMER ENGAGEMENT ANALYST w/ rec for NPO, now on NGT feeds. * Increased kcal/prot/micronutrients needs R/T wound healing as evidenced by pt admitted w/ multiple wounds including full thickness wound @ sacrum, TPI wound @ L Gluteal cheek, and non-Blanchable erythema @ BL heels. CURRENT TF:Jevity 1.2 @30ml/hr ENTERAL NUTRITION RECOMMENDATIONS: JEVITY 1.2 goal of 55ml/hr x24 hrs to provide 1320ml, 1584 kcal, 73g pro, 1065ml free H2O - rec to INCREASE current TF as tolerated to goal of 55ml/hr to better meet est needs. - flush per MD, HOB over 30 degrees ADDITIONAL RECOMMENDATIONS: * Per SNF: HT=66" [id number] (03/07/20) * Wound healing: continue MVI, Vit C, and ZnSO4 * VIA NGT-> add TONI BID for wound care TF recs as above * Monitor lytes, replete as needed THIS 60 Y.O.M. WAS ADMITTED WITH ACUTE ISSUES - FEVER, HYPOXIC WITH LOW 02 SATS ON NON-REBREATHER, RESP RATE 18 BPM INITIALLY PER MEDICAL RECORD. PER RN, THE PATIENT HAD A RAPID RESPOSE THIS MORNING (DESAT TO 90S AND RAPID RESP RATE). H/O COPD, CARDIAC DZ, HYPOTHYROIDISM, HTN, ALLERGIC RHINITIS, SCHIZOPHRENIA (ON OLANZAPINE AT SNF), BASELINE NONVERBAL. PER POLST FULL TX BUT NO INFORMATION REGARDING TUBE FEEDING PREFERENCES. AT SNF ON A REGULAR DIET TEXTURE AND THIN LIQUIDS WITH PROSTAT SF DRINK WITH MEALS. NOW ON A REGULAR TEXTURE DIET AND THIN LIQUIDS BUT DID NOT TAKE ANY PO. PER LAURIE EARLY, THE PT UNABLE TO TAKE LARGE PILLS BUT APPEARED TO TOLERATE CRUSHED MEDS WITH APPLESAUCE W/O OVERT ASPIRATION. PATIENT SEEN WITH RTFUNMI. PER RT RESP RATE 22 BPM AND NOT ABLE TO ongoing unintelligible confabulations. Patient did request a sandwich, however, not appropriate for regular texture at this time. VITALS ON 2 L NASAL CANNULA: HR: 73; RR: 20; SP02: 95% Patient's oral hygiene is improving, ongoing poor speech intelligibility which appears to be more due to poor articulation precision/oral motor coordination versus 2/2 dry mouth. CXR on 03/14/20: Findings: Interim considerable improvement of previously demonstrated left lower lobe infiltrate. There is a residual disease in the retrocardiac region as well as generalized reticular interstitial opacities throughout the left mid and lower lung. There is questionably a 3 cm spiculated opacity projected over the apex. Minimal right mid and lower lung reticular opacities are also demonstrated. There is some right midlung atelectasis versus thickening of the minor fissure. The heart size is normal. The pleural spaces are clear Impression: Considerable improvement the persistence of previously demonstrated left mid and lower lung infiltrates, since prior study of 03/11/2020. CUSTOMER ENGAGEMENT ANALYST plans to continue to f/u and monitor Patients readiness for PO trials for diet texture upgrade. RN aware of recommendations, plan, and aspiration precautions sign posted above Patients HOB. RECOMMENDATIONS: 1. Continue Moist Puree with [facility] Thick Liquids Diet via 1 to 1 careful handfeeding while implementing posted aspiration precautions - RD recommendations appreciated for diet texture/type 2. Patient requires oral hygiene BID + lip moisturizer. (2) Decubitus skin ulcer Assessment & Plan: Pt presented on admission with multiple pressure injuries. Full thickness Pressure injury Sacrococcygeal area. (L)4cm x (W)2.5cm. Base of wound is fatou with scattered slough ,which was easily removed with gentle friction. Wound is now fatou with 25% soft necrosis at distal base of wound. Small amt sanguineous exudate noted.No odor noted. Periwound erythematous and denuded. Two additional Pressure Injuries noted to R gluteal cheek.(Proximal) Base of wound is purple and indurated(L)3cm x (W)1.5cm. Surrounding erythematous and denuded skin (Distal) R gluteus(L)1.4cm x (W)0.6cm. Base of wound is purple, indurated with surrounding erythematous and denuded skin. DTPI L Gluteal cheek (L)1.5cm x (W)1.3cm. Base of wound is indurated, purple with surrounding non-blanching erythema. Additional scattered areas that are maroon in colour noted to L gluteal cheek. Lateral L Heel boggy with non-blanching erythema with delineated margins. (L) 4cm x (W)4.5cm. Lateral R Heel Boggy with non-Blanchable erythema with delineated margins(L) 2.5cm x (W)2.5cm. Tx.Plan: Cleanse Sacrococcygeal area with saline. Apply TheraHoney , Apply Moisture Barrier Paste to Sacrum, R and L Buttocks. Cover entire Area with Optifoam drsgs. Change every 3 days and prn. Apply Moisture Barrier Paste to R and L Buttocks . Cover with Optifoam drsgs. Changee very 3 days and prn. Apply Cavilon Skin Barrier to R and L Trochanteric areas. Cover with Optifoam drsg. Change every 7 days and prn. Apply Cavilon Skin Barrier to R and L Heels. Cover each heel with Optifoam drsg. Change every 7 days and prn. Reposition at least every 2hours or as tolerated. Off-load heels with Pillow. APM/ERIK Mattress. (3) Pneumonia Assessment & Plan: Lungs: There is mild left lower lobe infiltrate consistent with pneumonia. Pleural space: Unremarkable. No pneumothorax. Heart: The heart size is at the upper limits of normal. Mediastinum: Unremarkable. Bones/joints: Unremarkable. IMPRESSION: There is mild left lower lobe infiltrate consistent with pneumonia. worsening on bipap now will monitor closely intubated now 03/21 wean vent Continue weaning. Will hopefully be extubated potentially. Gases noted. (4) COPD (chronic obstructive pulmonary disease) (5) Fever Eddie Perez Mar 25, 2020 15:11
--- NOTE | 2020-03-25 16:30 | NUR ---
NURSE NOTES: VS remain stable while pt is maintained on FIO2 45%. NSR on traffic monitor specialist. Remains afebrile. Pt is tolerating NGT feeding with zero residual.
--- NOTE | 2020-03-25 18:00 | NUR ---
NURSE NOTES: Pt was cleaned, gown/bed linens were changed. Wound dressing was changed. Oral care was done and pt was suctioned. Lainez bag was emptied. VS remain stable.
--- NOTE | 2020-03-25 19:11 | NUR ---
HAND-OFF: Report given to Radha EARLY. VS remain stable. Endorsed plan of care.
--- NOTE | 2020-03-25 19:30 | NUR ---
NURSE NOTES: Received patient from SHARATH Costello, patient in bed awake, opens eyes. No s/s of acute distress noted. SB on the principal cyber engineer, HR 57. Orally intubated: ET tube 7/23cm at the lip line, vent settings: AC 14, TV 500, Fi02 45%, PEEP 5. Left Nares NGT is intact and infusing Jevity 1.2 at 30cc/hr. no residual. HOB elevated. IV site is Left Upper Arm PICC, infusing 1/2 NS at 50cc/hr. Lainez catheter is intact and draining with pale color urine. Bed is locked, placed in lowest position, side rails up x3, bed alarm on, head of bed elevated. On P200 mattress for wound management. Contact isolation maintained and observed. will continue plan of care.
[2020-03-25] MEDS: Dyna-Hex 2% Top Sol 2oz TOPIC SCH (20:56)
--- NOTE | 2020-03-25 21:11 | General Progress Note ---
Assessment/Plan Status: stable, progressing Assessment/Plan: Assessment - Resp failure - weaning - dysphagia, NGT dependent - COPD - Anemia - leukocytosis - improved - hypothyroid Recommendations - pulmonary f/u - NGT feeds - elevate HOB - follow labs and exam - PEG placement once stabilized Subjective Allergies: Coded Allergies: PENICILLINS (Verified Allergy, Unknown, 03/11/20) Subjective Above noted seen in ICU d/w RN on vent tolerating NGT feeds Objective Last 24 Hour Vital Signs Date Time Temp Pulse Resp B/P (MAP) Pulse Ox O2 Delivery O2 Flow Rate FiO2 03/25/20 19:43 64 16 100 Mechanical Ventilator 45 63 16 35 03/25/20 19:00 60 19 129/70 (89) 99 03/25/20 18:00 68 19 97/57 (70) 98 03/25/20 17:00 60 16 107/61 (76) 99 03/25/20 16:00 98.4 65 16 111/60 (77) 98 03/25/20 16:00 61 03/25/20 16:00 Mechanical Ventilator 03/25/20 16:00 45 03/25/20 15:08 60 15 100 Mechanical Ventilator 45 62 15 35 03/25/20 15:00 66 23 136/70 (92) 99 03/25/20 14:00 65 18 108/56 (73) 100 03/25/20 13:00 65 16 102/60 (74) 99 03/25/20 12:30 62 15 93/54 (67) 97 03/25/20 12:00 Mechanical Ventilator 03/25/20 12:00 81 03/25/20 12:00 98.6 75 23 123/68 (86) 95 03/25/20 12:00 45 03/25/20 11:11 78 25 100 Mechanical Ventilator 35 70 26 35 03/25/20 11:00 72 27 134/74 (94) 97 03/25/20 10:00 73 26 113/71 (85) 96 03/25/20 09:00 70 27 118/64 (82) 99 03/25/20 08:22 100 03/25/20 08:00 98.3 64 25 98/56 (70) 93 03/25/20 08:00 Mechanical Ventilator 03/25/20 08:00 61 03/25/20 08:00 35 6/21/20 07:29 74 26 100 Mechanical Ventilator 35 68 24 35 35 03/25/20 07:00 63 16 104/62 (76) 92 03/25/20 06:00 57 14 100/62 (75) 100 03/25/20 05:30 63 18 106/71 (83) 100 03/25/20 05:00 63 16 103/71 (82) 100 03/25/20 04:30 62 17 111/64 (80) 100 03/25/20 04:00 68 03/25/20 04:00 Mechanical Ventilator 03/25/20 04:00 35 03/25/20 04:00 98.2 59 17 102/59 (73) 100 03/25/20 03:30 57 16 93/49 (64) 100 03/25/20 03:00 60 16 97/54 (68) 100 03/25/20 02:43 68 19 100 Mechanical Ventilator 35 67 18 35 03/25/20 02:30 62 17 103/61 (75) 100 03/25/20 02:00 74 19 122/69 (86) 100 03/25/20 01:30 66 15 101/56 (71) 98 03/25/20 01:00 67 17 105/61 (76) 99 03/25/20 00:00 98.7 67 16 106/59 (75) 99 03/25/20 00:00 Mechanical Ventilator 03/25/20 00:00 70 03/24/20 23:00 66 17 108/61 (77) 99 03/24/20 22:36 64 16 100 Mechanical Ventilator 35 64 18 35 03/24/20 22:30 65 17 97/52 (67) 100 03/24/20 22:00 68 18 102/55 (71) 99 Intake and Output 03/24/20 03/25/20 19:00 07:00 Intake Total 1525.83 ml 1572.500 ml Output Total 1525 ml 1210 ml Balance 0.83 ml 362.500 ml Free Water 200 ml 200 ml IV Total 965.83 ml 1012.500 ml Tube Feeding 360 ml 360 ml Output Urine Total 1525 ml 1210 ml # Bowel Movements 2 3 Laboratory Tests 03/25/20 04:39: Sodium Level 137, Potassium Level 3.6, Chloride Level 101, Carbon Dioxide Level 29, Anion Gap 7, Blood Urea Nitrogen 7, Creatinine 0.8, Estimat Glomerular Filtration Rate > 60, Glucose Level 70L, Calcium Level 8.2L, Total Bilirubin 0.2 , Aspartate Amino Transf (AST/SGOT) 18, Alanine Aminotransferase (ALT/SGPT) 25, Alkaline Phosphatase 77, Total Protein 5.8L, Albumin 1.5L, Globulin 4.3, Albumin /Globulin Ratio 0.3L 03/25/20 10:08: Arterial Blood pH 7.413, Arterial Blood Partial Pressure CO2 39.4, Arterial Blood Partial Pressure O2 70.6L, Arterial Blood HCO3 24.6, Arterial Blood Oxygen Saturation 93.9L, Arterial Blood Base Excess 0.1, Keith Test Positive Height (Feet): 5 Height (Inches): 5.00 Weight (Pounds): 144 Objective Thin WW NCAT supple coarse BS RR abd soft NT ND no edema Douglas Tucker MD Mar 25, 2020 21:11
--- NOTE | 2020-03-25 21:30 | NUR ---
NURSE NOTES: Turned and reposition patient in bed. HOB elevated.Suctioned orally. mouth care provided. bilateral arms and heel elevated with pillows. will continue plan of care.
--- NOTE | 2020-03-25 23:30 | NUR ---
NURSE NOTES: VS remain stable while pt is maintained on FIO2 45%. NSR on monitor tech. Remains afebrile. Pt is tolerating NGT feeding with no residual. HOB elevated. Frequent visual checks continued. will continue plan of care.
[2020-03-26] VITALS (24 sets, daily range): BP systolic 93–135; BP diastolic 49–73
--- NOTE | 2020-03-26 | NUR ---
NURSE NOTES: Bed bath given tolerated well.
--- NOTE | 2020-03-26 03:11 | NUR ---
NURSE NOTES: VS remain stable while pt is maintained on FIO2 45%. NSR on marine engine machinist apprentice. Remains afebrile. Pt is tolerating NGT feeding with zero residual.
[2020-03-26] MEDS: Albuterol 90mcg Inhaler 8gm INH SCH ×6 (03:20→23:36)
--- NOTE | 2020-03-26 05:58 | NUR ---
NURSE NOTES: When checked patient noted NGT out. tried to insert NGT but there's a resistance,OGT inserted checked by 2 RN. ordered KUB in am. HOB elevated.
[2020-03-26] MEDS: Piperacillin/Tazobactam 3.375 GM in NS 110 ML IVPB SCH ×3 (06:10→21:35)
[2020-03-26 06:19] LABS: BASOPHILS % (AUTO) 1.2 % (0.0-2.0); EOSINOPHILS % (AUTO) 1.1 % (0.0-3.0); HEMATOCRIT 27.7 % (37.0-47.0); HEMOGLOBIN 9.1 G/DL (12.0-16.0); LYMPHOCYTES % (AUTO) 11.2 % (20.0-45.0); MEAN CORPUSCULAR VOLUME 96 FL (80-99); MONOCYTES % (AUTO) 7.2 % (1.0-10.0); NEUTROPHILS % (AUTO) 79.4 % (45.0-75.0); PLATELET COUNT 316 K/UL (150-450); RED CELL DISTRIBUTION WIDTH 13.2 % (11.6-14.8); WHITE BLOOD COUNT 9.5 K/UL (4.8-10.8)
[2020-03-26 06:47] LABS: ANION GAP 5 mmol/L (5-15); BLOOD UREA NITROGEN 10 mg/dL (7-18); CALCIUM 8.2 MG/DL (8.5-10.1); CARBON DIOXIDE 30 MMOL/L (21-32); CHLORIDE 101 MMOL/L (98-107); CREATININE 0.5 MG/DL (0.55-1.30); POTASSIUM 3.7 MMOL/L (3.5-5.1); SODIUM 136 MMOL/L (136-145)
--- NOTE | 2020-03-26 07:05 | NUR ---
NURSE NOTES: Received report from SHARATH Garcia. Patient is observed in bed, asleep at this time , opens eyes to verbal stimuli, able to follow simple commands such as nodding and blinking. Patient is orally intubated with ETT 7.0 at 23cm on the lip line with vent settings as follows: AC 14, TV 500, FiO2 45%, and PEEP 5; patient is saturating 97% at this time, no s/s of respiratory distress. asset protection associate shows SR with HR of 70. Patient has OGT in place, TF on hold at this time, awaiting for xray to verify placement; will resume TF once verified. PICC line noted on the left arm, intact, patent, and asymptomatic. 1/2 NS infusing at 50ml/hr. Patient has a Lainez catheter in place, draining to gravity with yellow urine output. Skin alteration noted, patient in P200 mattress at this time. Addendum: 03/26/20 at 0744 by Rebeca Goins RN No s/s of pain/distress at this time. Bed is locked, alarmed, and in lowest position, side rails up x3, and call light left within reach. Will continue to monitor and will continue plan of care.
--- NOTE | 2020-03-26 07:30 | NUR ---
HAND-OFF: Report given to Rebeca EARLY.
--- NOTE | 2020-03-26 07:40 | NUR ---
RESPIRATORY NOTES PT placed on SBT - CPAP 5, PS 8. PT understands plan and is currently stable - SaO2 98%, HR 68, BP 106/59. ABG to be drawn in an hour. SHARATH Jose aware. Will continue to monitor.
--- NOTE | 2020-03-26 07:50 | NUR ---
NURSE NOTES: Dr Ledesma present at bedside, updated on patient's condition, no new verbal orders received at this time.
--- NOTE | 2020-03-26 08:00 | Critical Care Progress Note ---
Assessment/Plan Assessment/Plan IMPRESSION: 1. COPD 2. Hypercapnia and hypoxemia. 3. Pneumonia,senior living acquired. COVID negative 4. Hypothyroidism. 5. History of allergies. 6. Severe protein-calorie malnutrition. 7. Mild leukocytosis. 8. acute respiratory failure 9. pulmonary congestion care noted IV antibiotics/ all reviewed respiratory care as is reviewed changes; monitor secretions- extubate when reduced Ventilatory support as is; weaning daily monitor for CO2 retention maintain meds DVT prophylaxis; supportive care suction as needed; aspiration precautions position change and off load oxygen therapy as is hope to extubate soon monitor nutrition medications/laboratory data/nursing notes/ICU care reviewed in detail note reviewed and edited care discussed with RN and RT ICU time spent >40 minutes Critical Care - Subjective Interval Events: weaning well has had significant secretions extubation held ICU care reviewed ROS Limited/Unobtainable: Yes Condition: critical EKG Rhythm: Sinus Rhythm Residuals: minimal Tube Feeding Tolerated: yes I&O: Intake and Output 03/25/20 03/26/20 19:00 07:00 Intake Total 1609.916 ml 1175.0 ml Output Total 820 ml 855 ml Balance 789.916 ml 320.0 ml Free Water 90 ml 160 ml IV Total 1159.916 ml 655.0 ml Tube Feeding 360 ml 300 ml Other 60 ml Output Urine Total 820 ml 855 ml # Bowel Movements 3 5 Critical Care - Objective ET-Tube: 7.0 ET Position: 23 Last 24 Hour Vital Signs Date Time Temp Pulse Resp B/P (MAP) Pulse Ox O2 Delivery O2 Flow Rate FiO2 03/26/20 07:20 65 14 96 Mechanical Ventilator 45 65 14 45 03/26/20 07:00 61 14 98/56 (70) 95 03/26/20 06:54 Mechanical Ventilator 03/26/20 06:00 66 24 106/58 (74) 98 03/26/20 05:00 57 14 96/61 (73) 98 03/26/20 04:00 62 03/26/20 04:00 Mechanical Ventilator 03/26/20 04:00 45 03/26/20 04:00 98.2 58 14 112/62 (79) 97 03/26/20 03:21 65 17 99 Mechanical Ventilator 45 67 15 45 03/26/20 03:00 62 15 111/66 (81) 96 6/22/20 02:00 56 14 106/61 (76) 98 03/26/20 01:00 58 15 115/63 (80) 98 03/26/20 00:00 Mechanical Ventilator 03/26/20 00:00 61 03/26/20 00:00 98.2 58 14 104/54 (71) 98 03/25/20 23:16 61 15 100 Mechanical Ventilator 45 62 14 45 03/25/20 23:00 62 16 137/69 (91) 99 03/25/20 22:00 64 14 123/64 (83) 100 03/25/20 21:30 55 14 107/63 (78) 100 03/25/20 21:00 58 17 113/62 (79) 100 03/25/20 20:30 59 18 116/61 (79) 100 03/25/20 20:00 98.6 54 15 112/57 (75) 100 03/25/20 20:00 68 03/25/20 20:00 45 03/25/20 20:00 Mechanical Ventilator 03/25/20 19:43 64 16 100 Mechanical Ventilator 45 63 16 45 03/25/20 19:00 60 19 129/70 (89) 99 03/25/20 18:00 68 19 97/57 (70) 98 03/25/20 17:00 60 16 107/61 (76) 99 03/25/20 16:00 98.4 65 16 111/60 (77) 98 03/25/20 16:00 61 03/25/20 16:00 Mechanical Ventilator 03/25/20 16:00 45 03/25/20 15:08 60 15 100 Mechanical Ventilator 45 62 15 35 03/25/20 15:00 66 23 136/70 (92) 99 03/25/20 14:00 65 18 108/56 (73) 100 03/25/20 13:00 65 16 102/60 (74) 99 03/25/20 12:30 62 15 93/54 (67) 97 03/25/20 12:00 Mechanical Ventilator 03/25/20 12:00 81 03/25/20 12:00 98.6 75 23 123/68 (86) 95 03/25/20 12:00 45 03/25/20 11:11 78 25 100 Mechanical Ventilator 35 70 26 35 03/25/20 11:00 72 27 134/74 (94) 97 03/25/20 10:00 73 26 113/71 (85) 96 03/25/20 09:00 70 27 118/64 (82) 99 03/25/20 08:22 100 03/25/20 08:00 98.3 64 25 98/56 (70) 93 03/25/20 08:00 Mechanical Ventilator 03/25/20 08:00 61 03/25/20 08:00 35 Labs: Laboratory Tests Test 03/25/20 10:08 03/26/20 04:00 Arterial Blood pH 7.413 (7.350-7.450) Arterial Blood Partial Pressure CO2 39.4 mmHg (35.0-45.0) Arterial Blood Partial Pressure O2 70.6 mmHg (75.0-100.0) L Arterial Blood HCO3 24.6 mmol/L (22.0-26.0) Arterial Blood Oxygen Saturation 93.9 % (95-100) L Arterial Blood Base Excess 0.1 (-2-2) Keith Test Positive White Blood Count 9.5 K/UL (4.8-10.8) Red Blood Count 2.90 M/UL (4.20-5.40) L Hemoglobin 9.1 G/DL (12.0-16.0) L Hematocrit 27.7 % (37.0-47.0) L Mean Corpuscular Volume 96 FL (80-99) Mean Corpuscular Hemoglobin 31.3 PG (27.0-31.0) H Mean Corpuscular Hemoglobin Concent 32.7 G/DL (32.0-36.0) Red Cell Distribution Width 13.2 % (11.6-14.8) Platelet Count 316 K/UL (150-450) Mean Platelet Volume 8.5 FL (6.5-10.1) Neutrophils (%) (Auto) 79.4 % (45.0-75.0) H Lymphocytes (%) (Auto) 11.2 % (20.0-45.0) L Monocytes (%) (Auto) 7.2 % (1.0-10.0) Eosinophils (%) (Auto) 1.1 % (0.0-3.0) Basophils (%) (Auto) 1.2 % (0.0-2.0) Sodium Level 136 MMOL/L (136-145) Potassium Level 3.7 MMOL/L (3.5-5.1) Chloride Level 101 MMOL/L (98-107) Carbon Dioxide Level 30 MMOL/L (21-32) Anion Gap 5 mmol/L (5-15) Blood Urea Nitrogen 10 mg/dL (7-18) Creatinine 0.5 MG/DL (0.55-1.30) L Estimat Glomerular Filtration Rate > 60 mL/min (>60) Glucose Level 82 MG/DL (74-106) Calcium Level 8.2 MG/DL (8.5-10.1) L Objective: GENERAL: An ill-appearing female. NAD on Vent NECK: Supple. No adenopathy. LUNGS: Coarse breath sounds. Moderate air entry. ETT in place; no rhonchi or wheeze CARDIAC: S1, S2. Regular rate and rhythm without murmur. ABDOMEN: Soft, nontender, nondistended. feeding tube EXTREMITIES: No cyanosis, clubbing, or edema. reduced LOC resting on the vent reviewed and edited Javier Blake MD Mar 26, 2020 08:00
--- NOTE | 2020-03-26 08:33 | NUR ---
NURSE NOTES: xray at bedside
[2020-03-26] MEDS: Heparin 5000 units/ml inj SUBQ SCH ×2 (08:42→20:35)
[2020-03-26] MEDS: Pantoprazole Inj IVP SCH (08:42)
--- NOTE | 2020-03-26 08:48 | NUR ---
RESPIRATORY NOTES PT is tolerating weaning well. ABG drawn one hour after SBT - pH 7.461, pCO2 39.0, pO2 91.5, HCO3- 27.2, BE 3.2. SaO2 96.5 PT is still currently on CPAP 5, PS 8. RN Rebeca aware. Will continue to monitor.
--- NOTE | 2020-03-26 08:56 | NUR ---
NURSE NOTES: Awaiting for xray results for OGT placement verification prior to giving scheduled medications.
--- NOTE | 2020-03-26 09:10 | NUR ---
NURSE NOTES: Dr Blake present at bedside, updated on patient's condition. No new verbal orders received at this time.
--- NOTE | 2020-03-26 09:46 | NUR ---
RADIOLOGY NOTE: PORTABLE CHEST X-RAY COMPLETED. FA
--- NOTE | 2020-03-26 10:00 | NUR ---
NURSE NOTES: Shifted and repositioned patient for comfort and safety. Patient remains on CPAP for weaning at this time; patient is tolerating well, SpO2 97%. Oral care provided, suctioned via ETT and orally. No distress at this time. Will continue to monitor.
--- NOTE | 2020-03-26 10:11 | NUR ---
NURSE NOTES: Still awaiting for xray results to verify OGT placement, unable to give medications at this time; charge nurse notified and made aware.
--- NOTE | 2020-03-26 10:25 | Diagnostic Imaging Report ---
EXAM: XRAY Abdomen 1v HISTORY: NG tube placement and COMPARISON: 03/19/2020. TECHNIQUE: Ventral view of the abdomen obtained. FINDINGS: NG tube in stomach. There is nonspecific bowel gas pattern. Increased stool lucencies noted in the left colon. There is no mass or mass effect noted. No definite pathologic calcifications identified. There is no sign of free air. Degenerative changes of lumbar spine noted. The lower abdomen/pelvis is not included on this radiograph. IMPRESSION: NG TUBE IN STOMACH. INCREASED STOOL LUCENCIES IN THE LEFT COLON.
[2020-03-26] MEDS: Zinc Sulfate 220mg NG SCH (10:45)
[2020-03-26] MEDS: Ascorbic Acid 500mg tab NG SCH (10:45)
[2020-03-26] MEDS: Multivitamins W/Minerals 15 ML UDC NG SCH (10:45)
[2020-03-26] MEDS: Lactulose 20gm/30ml UDC NG SCH ×3 (10:45→17:35)
--- NOTE | 2020-03-26 10:53 | Infectious Diseases Prog Note ---
Assessment/Plan Assessment/Plan antibiotics : zosyn A 1. pneumonia COVID 19 test negative x 2 2. respiratory failure 3. COPD 4. leucocytosis resolved 5. hypothyroidism 6. schizophrenia P 1. d/c zosyn 2. observe off antibiotics Subjective ROS Limited/Unobtainable: Yes Allergies: Coded Allergies: PENICILLINS (Verified Allergy, Unknown, 03/11/20) Objective Vital Signs Last 24 Hour Vital Signs Date Time Temp Pulse Resp B/P (MAP) Pulse Ox O2 Delivery O2 Flow Rate FiO2 03/26/20 10:00 67 24 124/65 (84) 100 03/26/20 09:00 63 22 105/54 (71) 97 03/26/20 08:48 98 03/26/20 08:00 45 03/26/20 08:00 98.4 74 23 124/69 (87) 98 03/26/20 08:00 Mechanical Ventilator 03/26/20 08:00 72 03/26/20 07:40 68 21 45 03/26/20 07:20 65 14 96 Mechanical Ventilator 45 65 14 45 03/26/20 07:00 61 14 98/56 (70) 95 03/26/20 06:54 Mechanical Ventilator 03/26/20 06:00 66 24 106/58 (74) 98 03/26/20 05:00 57 14 96/61 (73) 98 03/26/20 04:00 62 03/26/20 04:00 Mechanical Ventilator 03/26/20 04:00 45 03/26/20 04:00 98.2 58 14 112/62 (79) 97 03/26/20 03:21 65 17 99 Mechanical Ventilator 45 67 15 45 03/26/20 03:00 62 15 111/66 (81) 96 03/26/20 02:00 56 14 106/61 (76) 98 03/26/20 01:00 58 15 115/63 (80) 98 03/26/20 00:00 Mechanical Ventilator 03/26/20 00:00 61 03/26/20 00:00 98.2 58 14 104/54 (71) 98 03/25/20 23:16 61 15 100 Mechanical Ventilator 45 62 14 45 03/25/20 23:00 62 16 137/69 (91) 99 03/25/20 22:00 64 14 123/64 (83) 100 03/25/20 21:30 55 14 107/63 (78) 100 03/25/20 21:00 58 17 113/62 (79) 100 03/25/20 20:30 59 18 116/61 (79) 100 03/25/20 20:00 98.6 54 15 112/57 (75) 100 03/25/20 20:00 68 03/25/20 20:00 45 03/25/20 20:00 Mechanical Ventilator 03/25/20 19:43 64 16 100 Mechanical Ventilator 45 63 16 45 03/25/20 19:00 60 19 129/70 (89) 99 03/25/20 18:00 68 19 97/57 (70) 98 03/25/20 17:00 60 16 107/61 (76) 99 03/25/20 16:00 98.4 65 16 111/60 (77) 98 03/25/20 16:00 61 03/25/20 16:00 Mechanical Ventilator 03/25/20 16:00 45 03/25/20 15:08 60 15 100 Mechanical Ventilator 45 62 15 35 03/25/20 15:00 66 23 136/70 (92) 99 03/25/20 14:00 65 18 108/56 (73) 100 03/25/20 13:00 65 16 102/60 (74) 99 03/25/20 12:30 62 15 93/54 (67) 97 03/25/20 12:00 Mechanical Ventilator 03/25/20 12:00 81 03/25/20 12:00 98.6 75 23 123/68 (86) 95 03/25/20 12:00 45 03/25/20 11:11 78 25 100 Mechanical Ventilator 35 70 26 35 03/25/20 11:00 72 27 134/74 (94) 97 Height (Feet): 5 Height (Inches): 5.00 Weight (Pounds): 143 HEENT: other - intubated Respiratory/Chest: lungs clear Cardiovascular: normal rate, regular rhythm, no gallop/murmur Abdomen: soft, non tender Extremities: no edema, other - left arm PICC Laboratory Tests Test 03/26/20 04:00 03/26/20 08:48 White Blood Count 9.5 K/UL (4.8-10.8) Red Blood Count 2.90 M/UL (4.20-5.40) L Hemoglobin 9.1 G/DL (12.0-16.0) L Hematocrit 27.7 % (37.0-47.0) L Mean Corpuscular Volume 96 FL (80-99) Mean Corpuscular Hemoglobin 31.3 PG (27.0-31.0) H Mean Corpuscular Hemoglobin Concent 32.7 G/DL (32.0-36.0) Red Cell Distribution Width 13.2 % (11.6-14.8) Platelet Count 316 K/UL (150-450) Mean Platelet Volume 8.5 FL (6.5-10.1) Neutrophils (%) (Auto) 79.4 % (45.0-75.0) H Lymphocytes (%) (Auto) 11.2 % (20.0-45.0) L Monocytes (%) (Auto) 7.2 % (1.0-10.0) Eosinophils (%) (Auto) 1.1 % (0.0-3.0) Basophils (%) (Auto) 1.2 % (0.0-2.0) Sodium Level 136 MMOL/L (136-145) Potassium Level 3.7 MMOL/L (3.5-5.1) Chloride Level 101 MMOL/L (98-107) Carbon Dioxide Level 30 MMOL/L (21-32) Anion Gap 5 mmol/L (5-15) Blood Urea Nitrogen 10 mg/dL (7-18) Creatinine 0.5 MG/DL (0.55-1.30) L Estimat Glomerular Filtration Rate > 60 mL/min (>60) Glucose Level 82 MG/DL (74-106) Calcium Level 8.2 MG/DL (8.5-10.1) L Arterial Blood pH 7.461 (7.350-7.450) Arterial Blood Partial Pressure CO2 39.0 mmHg (35.0-45.0) Arterial Blood Partial Pressure O2 91.5 mmHg (75.0-100.0) Arterial Blood HCO3 27.2 mmol/L (22.0-26.0) H Arterial Blood Oxygen Saturation 96.5 % (95-100) Arterial Blood Base Excess 3.2 (-2-2) H Keith Test Positive Current Medications Medications (Trade) Dose Ordered Sig/Ranjeet Route PRN Reason Start Time Stop Time Status Last Admin Dose Admin Acetaminophen (Tylenol) 650 mg Q4H PRN NG Mild Pain (1-3)/Fever > 100.5 03/22/20 15:30 04/10/20 19:29 Albuterol Sulfate (Proventil MDI) 2 puff Q4HRT INH 03/18/20 15:00 06/13/20 02:59 03/26/20 07:10 Ascorbic Acid (Vitamin C) 500 mg DAILY NG 03/23/20 09:00 04/11/20 08:59 03/26/20 10:45 Atropine Sulfate (Atropine) 1 mg Q1H PRN IVP HR <40BPM 03/18/20 13:30 04/17/20 13:29 03/20/20 08:01 Chlorhexidine Gluconate (Mary-Hex 2%) 1 applic DAILY@2000 TOPIC 03/21/20 20:00 06/19/20 19:59 03/25/20 20:56 Heparin Sodium (Porcine) (Heparin 5000 units/ml) 5,000 units EVERY 12 HOURS SUBQ 03/18/20 21:00 04/25/20 20:59 03/26/20 08:42 Lactulose (Cephulac) 30 gm THREE TIMES A DAY NG 03/22/20 18:00 04/18/20 09:14 03/26/20 10:45 Levothyroxine Sodium (Synthroid) 50 mcg DAILY IV 03/19/20 09:00 04/17/20 13:14 03/26/20 08:33 Loratadine (Claritin 10mg) 10 mg DAILY ORAL 03/23/20 09:00 04/11/20 08:59 03/26/20 10:45 Magnesium Hydroxide (Mom) 30 ml HSPRN PRN NG Constipation 03/22/20 15:30 04/17/20 13:59 Midodrine (Pro-Amatine) 10 mg THREE TIMES A DAY NG 03/24/20 13:00 06/21/20 08:59 03/25/20 18:05 Multivitamins (Multivitamins W/ Minerals 15ml Liquid) 15 ml DAILY NG 03/23/20 09:00 04/11/20 08:59 03/26/20 10:45 Norepinephrine Bitartrate 250 ml @ 0 mls/hr Q24H IV 03/23/20 14:52 06/21/20 14:51 Pantoprazole (Protonix) 40 mg DAILY IVP 03/23/20 09:00 04/22/20 08:59 03/26/20 08:42 Piperacillin Sod/ Tazobactam Sod 3.375 gm/Sodium Chloride 110 ml @ 27.5 mls/hr EVERY 8 HOURS IVPB 03/18/20 14:00 03/28/20 13:59 03/26/20 06:10 Sodium Chloride 1,000 ml @ 50 mls/hr Q20H IV 03/23/20 15:15 04/22/20 15:14 03/26/20 02:46 Zinc Sulfate (Zinc Sulfate) 220 mg DAILY NG 03/23/20 09:00 06/10/20 08:59 03/26/20 10:45 Eh Bailey MD Mar 26, 2020 10:53
[2020-03-26] MEDS: Midodrine 10mg tab NG SCH ×3 (10:56→17:35)
--- NOTE | 2020-03-26 11:00 | NUR ---
NURSE NOTES: Abdominal xray results shows OGT in place; scheduled AM medications given to patient. TF resumed; Jevity 1.2 at 30ml/hr. HOB elevated for aspiration precautions. No s/s of distress, will continue to monitor.
--- NOTE | 2020-03-26 13:00 | NUR ---
NURSE NOTES: Patient remains on CPAP for weaning; no s/s of distress at this time. Patient is tolerating TF. Oral care provided, suctioned via ETT and orally with large amount of thick, white sputum noted. Repositioned patient for comfort and safety. Left clean and dry, no BM at this time. Will continue to monitor.
--- NOTE | 2020-03-26 14:00 | NUR ---
NURSE NOTES: Patient resting in bed, eyes closed. Shifted and repositioned for comfort and safety. No s/s of pain/discomfort/distress, will continue to monitor.
[2020-03-26] MEDS: Norepinephrine 4mg/NS Premix 250 ML IV SCH (14:26)
--- NOTE | 2020-03-26 14:30 | NUR ---
NURSE NOTES: Patient weaned x6hrs on CPAP, was placed back to AC mode by RT Hi. Patient has no s/s of respiratory distress. SpO2 100% at this time. Will continue to monitor.
--- NOTE | 2020-03-26 16:00 | NUR ---
NURSE NOTES: Bed bath given to patient; large BM noted, soft and brown in color. All linens changed and patient's gown replaced. Optifoam dressings changed. Patient remains orally intubated at this time, tolerating vent settings. OGT remains in place, TF infusing at 30ml/hr. Left upper arm PICC line intact and patent with IV fluids 1/2 NS infusing at 50ml/hr. No s/s of pain/discomfort at this time. Will continue to monitor.
--- NOTE | 2020-03-26 16:30 | NUR ---
CASE MANAGEMENT:REVIEW 03/25/20 SI;COPD. PNA. RESPIRATORY FAILURE~ORALLY INTUBATED. 98.6 75 23 123/68 95% MECH VENT FIO2 @ 35% CA+ 8.2 BG 70 ALB 1.5 ABG: pO2 70.6 O2 SAT 93.9 IS;IV ZOSYN TID IV NS @ 50 ML/HR PROTONIX IV QD MIDODRINE NGT TID VIT C NGT QD ZINC SULFATE NGT QD ALBUTEROL INH Q4HR HEPARIN SQ BID LACTULOSE NG TID ICU STATUS DCP: [facility] [place] WHEN STABLE CASE MANAGEMENT:REVIEW 03/26/20 SI;COPD. PNA. RESPIRATORY FAILURE~ORALLY INTUBATED. 98.2 74 29 121/63 97% MECH VENT FIO2 @ 45% H/H 9.1/27.7 CREAT 0.5 CA+ 8.2 ABG: pH 7.461 HCO3 27.2 IS;IV ZOSYN TID IV NS @ 50 ML/HR PROTONIX IV QD MIDODRINE NGT TID VIT C NGT QD ZINC SULFATE NGT QD ALBUTEROL INH Q4HR HEPARIN SQ BID LACTULOSE NG TID ICU STATUS DCP:[facility] [place] WHEN STABLE PLAN: [employer] INCREASE SECRETION HOLD EXTUBATION - RE-EVAL IN AM
--- NOTE | 2020-03-26 16:33 | General Progress Note ---
Assessment/Plan Problem List: (1) COPD (chronic obstructive pulmonary disease) ICD Codes: J44.9 - Chronic obstructive pulmonary disease, unspecified SNOMED: 35071531 Qualifiers: Qualified Codes: J44.9 - Chronic obstructive pulmonary disease, unspecified (2) Pneumonia ICD Codes: J18.9 - Pneumonia, unspecified organism SNOMED: 200403633 Qualifiers: Qualified Codes: J18.9 - Pneumonia, unspecified organism (3) Fever ICD Codes: R50.9 - Fever, unspecified SNOMED: 449347426 Status: stable, progressing Assessment/Plan: vent support wean per pulm iv abx repeat cultures- sputum and blood follow up labs ivf adjusted skin care turn q2 critical and guarded Subjective ROS Limited/Unobtainable: No Constitutional: Reports: malaise, weakness HEENT: Reports: no symptoms Cardiovascular: Reports: no symptoms Respiratory: Reports: shortness of breath, sputum Gastrointestinal/Abdominal: Reports: difficulty swallowing Genitourinary: Reports: no symptoms Neurologic/Psychiatric: Reports: pre-existing deficit Endocrine: Reports: no symptoms Hematologic/Lymphatic: Reports: no symptoms Allergies: Coded Allergies: PENICILLINS (Verified Allergy, Unknown, 03/11/20) All Systems: reviewed and negative except above Subjective remains intubated. off pressors. no fevers. on ivf. labs noted Objective Last 24 Hour Vital Signs Date Time Temp Pulse Resp B/P (MAP) Pulse Ox O2 Delivery O2 Flow Rate FiO2 03/26/20 15:20 70 14 98 Mechanical Ventilator 45 70 14 45 03/26/20 15:00 73 28 134/65 (88) 99 03/26/20 14:26 135/68 03/26/20 14:09 74 15 45 03/26/20 14:00 74 28 135/68 (90) 97 03/26/20 13:00 72 23 118/63 (81) 97 03/26/20 12:00 71 03/26/20 12:00 45 03/26/20 12:00 98.2 74 29 121/63 (82) 97 03/26/20 12:00 Mechanical Ventilator 03/26/20 11:20 63 23 98 Mechanical Ventilator 45 63 23 45 03/26/20 11:00 62 21 128/68 (88) 98 03/26/20 10:00 67 24 124/65 (84) 100 03/26/20 09:00 63 22 105/54 (71) 97 03/26/20 08:48 98 03/26/20 08:00 45 03/26/20 08:00 98.4 74 23 124/69 (87) 98 03/26/20 08:00 Mechanical Ventilator 03/26/20 08:00 72 03/26/20 07:40 68 21 45 03/26/20 07:20 65 14 96 Mechanical Ventilator 45 65 14 45 03/26/20 07:00 61 14 98/56 (70) 95 03/26/20 06:54 Mechanical Ventilator 03/26/20 06:00 66 24 106/58 (74) 98 03/26/20 05:00 57 14 96/61 (73) 98 03/26/20 04:00 62 03/26/20 04:00 Mechanical Ventilator 03/26/20 04:00 45 03/26/20 04:00 98.2 58 14 112/62 (79) 97 03/26/20 03:21 65 17 99 Mechanical Ventilator 45 67 15 45 03/26/20 03:00 62 15 111/66 (81) 96 03/26/20 02:00 56 14 106/61 (76) 98 03/26/20 01:00 58 15 115/63 (80) 98 03/26/20 00:00 Mechanical Ventilator 03/26/20 00:00 61 03/26/20 00:00 98.2 58 14 104/54 (71) 98 03/25/20 23:16 61 15 100 Mechanical Ventilator 45 62 14 45 03/25/20 23:00 62 16 137/69 (91) 99 03/25/20 22:00 64 14 123/64 (83) 100 03/25/20 21:30 55 14 107/63 (78) 100 03/25/20 21:00 58 17 113/62 (79) 100 03/25/20 20:30 59 18 116/61 (79) 100 03/25/20 20:00 98.6 54 15 112/57 (75) 100 03/25/20 20:00 68 03/25/20 20:00 45 03/25/20 20:00 Mechanical Ventilator 03/25/20 19:43 64 16 100 Mechanical Ventilator 45 63 16 45 03/25/20 19:00 60 19 129/70 (89) 99 03/25/20 18:00 68 19 97/57 (70) 98 03/25/20 17:00 60 16 107/61 (76) 99 Intake and Output 03/25/20 03/26/20 19:00 07:00 Intake Total 1609.916 ml 1175.0 ml Output Total 820 ml 855 ml Balance 789.916 ml 320.0 ml Free Water 90 ml 160 ml IV Total 1159.916 ml 655.0 ml Tube Feeding 360 ml 300 ml Other 60 ml Output Urine Total 820 ml 855 ml # Bowel Movements 3 5 Laboratory Tests 03/26/20 04:00: White Blood Count 9.5, Red Blood Count 2.90L, Hemoglobin 9.1L, Hematocrit 27.7L , Mean Corpuscular Volume 96, Mean Corpuscular Hemoglobin 31.3H, Mean Corpuscular Hemoglobin Concent 32.7, Red Cell Distribution Width 13.2, Platelet Count 316, Mean Platelet Volume 8.5, Neutrophils (%) (Auto) 79.4H, Lymphocytes ( %) (Auto) 11.2L, Monocytes (%) (Auto) 7.2, Eosinophils (%) (Auto) 1.1, Basophils (%) (Auto) 1.2, Sodium Level 136, Potassium Level 3.7, Chloride Level 101, Carbon Dioxide Level 30, Anion Gap 5, Blood Urea Nitrogen 10, Creatinine 0.5L, Estimat Glomerular Filtration Rate > 60, Glucose Level 82, Calcium Level 8.2L 03/26/20 08:48: Arterial Blood pH 7.461H, Arterial Blood Partial Pressure CO2 39.0, Arterial Blood Partial Pressure O2 91.5, Arterial Blood HCO3 27.2H, Arterial Blood Oxygen Saturation 96.5, Arterial Blood Base Excess 3.2H, Keith Test Positive Height (Feet): 5 Height (Inches): 5.00 Weight (Pounds): 143 Objective General Appearance: WD/WN, lethargic. intubated Neck: non-tender Cardiovascular: normal rate, regular rhythm Respiratory/Chest: chest wall non-tender, lungs clear, normal breath sounds Abdomen: normal bowel sounds, non tender, soft, no organomegaly Edema: no edema noted Arm (L), no edema noted Arm (R), no edema noted Leg (L), no edema noted Leg (R), no edema noted Pedal (L), no edema noted Pedal (R), no edema noted Generalized Neurologic: alert Isaak Ledesma MD Mar 26, 2020 16:33
--- NOTE | 2020-03-26 16:46 | NUR ---
*-* INSURANCE *-* UPDATED CLINICALS AND CLINICALS HAVE BEEN FAXED TO: [facility] Ref# [id number] F: [phone]
--- NOTE | 2020-03-26 18:00 | NUR ---
NURSE NOTES: Patient appears to be sleeping in bed; no s/s of pain/discomfort/distress at this time. Will continue to monitor.
--- NOTE | 2020-03-26 19:20 | NUR ---
HAND-OFF: Report given to SHARATH Xiong. Endorsed plan of care.
--- NOTE | 2020-03-26 19:44 | General Progress Note ---
Assessment/Plan Status: stable, progressing Assessment/Plan: Assessment - Resp failure - weaning - dysphagia, NGT dependent - COPD - Anemia - leukocytosis - improved - hypothyroid Recommendations - pulmonary f/u - NGT feeds - elevate HOB - follow labs and exam - PEG placement once stabilized Subjective Allergies: Coded Allergies: PENICILLINS (Verified Allergy, Unknown, 03/11/20) Subjective Above noted seen in ICU d/w RN on vent tolerating NGT feeds Objective Last 24 Hour Vital Signs Date Time Temp Pulse Resp B/P (MAP) Pulse Ox O2 Delivery O2 Flow Rate FiO2 03/26/20 19:00 59 26 103/56 (72) 99 03/26/20 18:00 67 15 116/58 (77) 99 03/26/20 17:00 61 24 97/49 (65) 99 03/26/20 16:00 45 03/26/20 16:00 98.2 76 19 132/73 (92) 100 03/26/20 16:00 Mechanical Ventilator 03/26/20 16:00 67 03/26/20 15:20 70 14 98 Mechanical Ventilator 45 70 14 45 03/26/20 15:00 73 28 134/65 (88) 99 03/26/20 14:26 135/68 03/26/20 14:09 74 15 45 03/26/20 14:00 74 28 135/68 (90) 97 03/26/20 13:00 72 23 118/63 (81) 97 03/26/20 12:00 71 03/26/20 12:00 45 03/26/20 12:00 98.2 74 29 121/63 (82) 97 03/26/20 12:00 Mechanical Ventilator 03/26/20 11:20 63 23 98 Mechanical Ventilator 45 63 23 45 03/26/20 11:00 62 21 128/68 (88) 98 03/26/20 10:00 67 24 124/65 (84) 100 03/26/20 09:00 63 22 105/54 (71) 97 03/26/20 08:48 98 03/26/20 08:00 45 03/26/20 08:00 98.4 74 23 124/69 (87) 98 03/26/20 08:00 Mechanical Ventilator 03/26/20 08:00 72 03/26/20 07:40 68 21 45 03/26/20 07:20 65 14 96 Mechanical Ventilator 45 65 14 45 03/26/20 07:00 61 14 98/56 (70) 95 03/26/20 06:54 Mechanical Ventilator 03/26/20 06:00 66 24 106/58 (74) 98 03/26/20 05:00 57 14 96/61 (73) 98 03/26/20 04:00 62 03/26/20 04:00 Mechanical Ventilator 03/26/20 04:00 45 03/26/20 04:00 98.2 58 14 112/62 (79) 97 03/26/20 03:21 65 17 99 Mechanical Ventilator 45 67 15 45 03/26/20 03:00 62 15 111/66 (81) 96 03/26/20 02:00 56 14 106/61 (76) 98 03/26/20 01:00 58 15 115/63 (80) 98 03/26/20 00:00 Mechanical Ventilator 03/26/20 00:00 61 03/26/20 00:00 98.2 58 14 104/54 (71) 98 03/25/20 23:16 61 15 100 Mechanical Ventilator 45 62 14 45 03/25/20 23:00 62 16 137/69 (91) 99 03/25/20 22:00 64 14 123/64 (83) 100 03/25/20 21:30 55 14 107/63 (78) 100 03/25/20 21:00 58 17 113/62 (79) 100 03/25/20 20:30 59 18 116/61 (79) 100 03/25/20 20:00 98.6 54 15 112/57 (75) 100 03/25/20 20:00 68 03/25/20 20:00 45 03/25/20 20:00 Mechanical Ventilator Intake and Output 03/25/20 03/26/20 19:00 07:00 Intake Total 1609.916 ml 1175.0 ml Output Total 820 ml 855 ml Balance 789.916 ml 320.0 ml Free Water 90 ml 160 ml IV Total 1159.916 ml 655.0 ml Tube Feeding 360 ml 300 ml Other 60 ml Output Urine Total 820 ml 855 ml # Bowel Movements 3 5 Laboratory Tests 03/26/20 04:00: White Blood Count 9.5, Red Blood Count 2.90L, Hemoglobin 9.1L, Hematocrit 27.7L , Mean Corpuscular Volume 96, Mean Corpuscular Hemoglobin 31.3H, Mean Corpuscular Hemoglobin Concent 32.7, Red Cell Distribution Width 13.2, Platelet Count 316, Mean Platelet Volume 8.5, Neutrophils (%) (Auto) 79.4H, Lymphocytes ( %) (Auto) 11.2L, Monocytes (%) (Auto) 7.2, Eosinophils (%) (Auto) 1.1, Basophils (%) (Auto) 1.2, Sodium Level 136, Potassium Level 3.7, Chloride Level 101, Carbon Dioxide Level 30, Anion Gap 5, Blood Urea Nitrogen 10, Creatinine 0.5L, Estimat Glomerular Filtration Rate > 60, Glucose Level 82, Calcium Level 8.2L 03/26/20 08:48: Arterial Blood pH 7.461H, Arterial Blood Partial Pressure CO2 39.0, Arterial Blood Partial Pressure O2 91.5, Arterial Blood HCO3 27.2H, Arterial Blood Oxygen Saturation 96.5, Arterial Blood Base Excess 3.2H, Keith Test Positive Height (Feet): 5 Height (Inches): 5.00 Weight (Pounds): 143 Objective Thin WW NCAT (+) ETT supple coarse BS RR abd soft NT ND no edema Douglas Tucker MD Mar 26, 2020 19:44
--- NOTE | 2020-03-26 19:52 | NUR ---
NURSE NOTES: received report from truman pete pt orally intubated -vent o2 sAT99% NO ACUTE RESP DISTRESS NOTED TOLERATING TUBE FEEDING NO RESIDUAL REPOSITION AND SUCTION
[2020-03-26] MEDS: Dyna-Hex 2% Top Sol 2oz TOPIC SCH (20:34)
--- NOTE | 2020-03-26 21:22 | Surgery Progress Note ---
Surgery Progress Note Subjective Additional Comments afebrile, HD stable no n/v/f/c kub noted ng with tf weaning vent Objective Last 24 Hour Vital Signs Date Time Temp Pulse Resp B/P (MAP) Pulse Ox O2 Delivery O2 Flow Rate FiO2 03/26/20 19:30 63 21 99 Mechanical Ventilator 45 68 16 45 03/26/20 19:00 59 26 103/56 (72) 99 03/26/20 18:00 67 15 116/58 (77) 99 03/26/20 17:00 61 24 97/49 (65) 99 03/26/20 16:00 45 03/26/20 16:00 98.2 76 19 132/73 (92) 100 03/26/20 16:00 Mechanical Ventilator 03/26/20 16:00 67 03/26/20 15:20 70 14 98 Mechanical Ventilator 45 70 14 45 03/26/20 15:00 73 28 134/65 (88) 99 03/26/20 14:26 135/68 03/26/20 14:09 74 15 45 03/26/20 14:00 74 28 135/68 (90) 97 03/26/20 13:00 72 23 118/63 (81) 97 03/26/20 12:00 71 03/26/20 12:00 45 03/26/20 12:00 98.2 74 29 121/63 (82) 97 03/26/20 12:00 Mechanical Ventilator 03/26/20 11:20 63 23 98 Mechanical Ventilator 45 63 23 45 03/26/20 11:00 62 21 128/68 (88) 98 03/26/20 10:00 67 24 124/65 (84) 100 03/26/20 09:00 63 22 105/54 (71) 97 03/26/20 08:48 98 03/26/20 08:00 45 03/26/20 08:00 98.4 74 23 124/69 (87) 98 03/26/20 08:00 Mechanical Ventilator 03/26/20 08:00 72 03/26/20 07:40 68 21 45 03/26/20 07:20 65 14 96 Mechanical Ventilator 45 65 14 45 03/26/20 07:00 61 14 98/56 (70) 95 03/26/20 06:54 Mechanical Ventilator 03/26/20 06:00 66 24 106/58 (74) 98 03/26/20 05:00 57 14 96/61 (73) 98 03/26/20 04:00 62 03/26/20 04:00 Mechanical Ventilator 03/26/20 04:00 45 03/26/20 04:00 98.2 58 14 112/62 (79) 97 03/26/20 03:21 65 17 99 Mechanical Ventilator 45 67 15 45 03/26/20 03:00 62 15 111/66 (81) 96 03/26/20 02:00 56 14 106/61 (76) 98 03/26/20 01:00 58 15 115/63 (80) 98 03/26/20 00:00 Mechanical Ventilator 03/26/20 00:00 61 03/26/20 00:00 98.2 58 14 104/54 (71) 98 03/25/20 23:16 61 15 100 Mechanical Ventilator 45 62 14 45 03/25/20 23:00 62 16 137/69 (91) 99 03/25/20 22:00 64 14 123/64 (83) 100 03/25/20 21:30 55 14 107/63 (78) 100 I&O Intake and Output 03/25/20 03/26/20 19:00 07:00 Intake Total 1609.916 ml 1175.0 ml Output Total 820 ml 855 ml Balance 789.916 ml 320.0 ml Free Water 90 ml 160 ml IV Total 1159.916 ml 655.0 ml Tube Feeding 360 ml 300 ml Other 60 ml Output Urine Total 820 ml 855 ml # Bowel Movements 3 5 Dressing: other Wound: other Drains: other Cardiovascular: RSR Respiratory: decreased breath sounds Abdomen: soft, non-tender, present bowel sounds Extremities: no cyanosis, other Laboratory Tests Test 03/26/20 04:00 03/26/20 08:48 White Blood Count 9.5 K/UL (4.8-10.8) Red Blood Count 2.90 M/UL (4.20-5.40) L Hemoglobin 9.1 G/DL (12.0-16.0) L Hematocrit 27.7 % (37.0-47.0) L Mean Corpuscular Volume 96 FL (80-99) Mean Corpuscular Hemoglobin 31.3 PG (27.0-31.0) H Mean Corpuscular Hemoglobin Concent 32.7 G/DL (32.0-36.0) Red Cell Distribution Width 13.2 % (11.6-14.8) Platelet Count 316 K/UL (150-450) Mean Platelet Volume 8.5 FL (6.5-10.1) Neutrophils (%) (Auto) 79.4 % (45.0-75.0) H Lymphocytes (%) (Auto) 11.2 % (20.0-45.0) L Monocytes (%) (Auto) 7.2 % (1.0-10.0) Eosinophils (%) (Auto) 1.1 % (0.0-3.0) Basophils (%) (Auto) 1.2 % (0.0-2.0) Sodium Level 136 MMOL/L (136-145) Potassium Level 3.7 MMOL/L (3.5-5.1) Chloride Level 101 MMOL/L (98-107) Carbon Dioxide Level 30 MMOL/L (21-32) Anion Gap 5 mmol/L (5-15) Blood Urea Nitrogen 10 mg/dL (7-18) Creatinine 0.5 MG/DL (0.55-1.30) L Estimat Glomerular Filtration Rate > 60 mL/min (>60) Glucose Level 82 MG/DL (74-106) Calcium Level 8.2 MG/DL (8.5-10.1) L Arterial Blood pH 7.461 (7.350-7.450) Arterial Blood Partial Pressure CO2 39.0 mmHg (35.0-45.0) Arterial Blood Partial Pressure O2 91.5 mmHg (75.0-100.0) Arterial Blood HCO3 27.2 mmol/L (22.0-26.0) H Arterial Blood Oxygen Saturation 96.5 % (95-100) Arterial Blood Base Excess 3.2 (-2-2) H Keith Test Positive Plan Problems: (1) Malnutrition Assessment & Plan: not eating enough TF started adv as tolerated bowel regimen DDAILY ESTIMATED NEEDS: Needs based on Wound, pulmonary / 56kg 25-35 kcals/kg 5794-6302 total kcals 1.25-1.8 g protein/kg 70-100 g total protein 25-30 mL/kg 7175-9600 total fluid mLs NUTRITION DIAGNOSIS: * Swallowing difficulty R/T dysphagia as evidenced by CIRCUS SUPERVISOR w/ rec for NPO, now on NGT feeds. * Increased kcal/prot/micronutrients needs R/T wound healing as evidenced by pt admitted w/ multiple wounds including full thickness wound @ sacrum, TPI wound @ L Gluteal cheek, and non-Blanchable erythema @ BL heels. CURRENT TF:Jevity 1.2 @30ml/hr ENTERAL NUTRITION RECOMMENDATIONS: JEVITY 1.2 goal of 55ml/hr x24 hrs to provide 1320ml, 1584 kcal, 73g pro, 1065ml free H2O - rec to INCREASE current TF as tolerated to goal of 55ml/hr to better meet est needs. - flush per MD, HOB over 30 degrees ADDITIONAL RECOMMENDATIONS: * Per SNF: HT=66" QA=713ins (03/07/20) * Wound healing: continue MVI, Vit C, and ZnSO4 * VIA NGT-> add TONI BID for wound care TF recs as above * Monitor lytes, replete as needed THIS 60 Y.O.M. WAS ADMITTED WITH ACUTE ISSUES - FEVER, HYPOXIC WITH LOW 02 SATS ON NON-REBREATHER, RESP RATE 18 BPM INITIALLY PER MEDICAL RECORD. PER RN, THE PATIENT HAD A RAPID RESPOSE THIS MORNING (DESAT TO 90S AND RAPID RESP RATE). H/O COPD, CARDIAC DZ, HYPOTHYROIDISM, HTN, ALLERGIC RHINITIS, SCHIZOPHRENIA (ON OLANZAPINE AT SNF), BASELINE NONVERBAL. PER POLST FULL TX BUT NO INFORMATION REGARDING TUBE FEEDING PREFERENCES. AT SNF ON A REGULAR DIET TEXTURE AND THIN LIQUIDS WITH PROSTAT SF DRINK WITH MEALS. NOW ON A REGULAR TEXTURE DIET AND THIN LIQUIDS BUT DID NOT TAKE ANY PO. PER LAURIE EARLY, THE PT UNABLE TO TAKE LARGE PILLS BUT APPEARED TO TOLERATE CRUSHED MEDS WITH APPLESAUCE W/O OVERT ASPIRATION. PATIENT SEEN WITH FUNMI HEATH. PER RT RESP RATE 22 BPM AND NOT ABLE TO ongoing unintelligible confabulations. Patient did request a sandwich, however, not appropriate for regular texture at this time. VITALS ON 2 L NASAL CANNULA: HR: 73; RR: 20; SP02: 95% Patient's oral hygiene is improving, ongoing poor speech intelligibility which appears to be more due to poor articulation precision/oral motor coordination versus 2/2 dry mouth. CXR on 03/14/20: Findings: Interim considerable improvement of previously demonstrated left lower lobe infiltrate. There is a residual disease in the retrocardiac region as well as generalized reticular interstitial opacities throughout the left mid and lower lung. There is questionably a 3 cm spiculated opacity projected over the apex. Minimal right mid and lower lung reticular opacities are also demonstrated. There is some right midlung atelectasis versus thickening of the minor fissure. The heart size is normal. The pleural spaces are clear Impression: Considerable improvement the persistence of previously demonstrated left mid and lower lung infiltrates, since prior study of 03/11/2020. CIRCUS SUPERVISOR plans to continue to f/u and monitor Patients readiness for PO trials for diet texture upgrade. RN aware of recommendations, plan, and aspiration precautions sign posted above Patients HOB. RECOMMENDATIONS: 1. Continue Moist Puree with [place] Thick Liquids Diet via 1 to 1 careful handfeeding while implementing posted aspiration precautions - RD recommendations appreciated for diet texture/type 2. Patient requires oral hygiene BID + lip moisturizer. (2) Decubitus skin ulcer Assessment & Plan: Pt presented on admission with multiple pressure injuries. Full thickness Pressure injury Sacrococcygeal area. (L)4cm x (W)2.5cm. Base of wound is fatou with scattered slough ,which was easily removed with gentle friction. Wound is now fatou with 25% soft necrosis at distal base of wound. Small amt sanguineous exudate noted.No odor noted. Periwound erythematous and denuded. Two additional Pressure Injuries noted to R gluteal cheek.(Proximal) Base of wound is purple and indurated(L)3cm x (W)1.5cm. Surrounding erythematous and denuded skin (Distal) R gluteus(L)1.4cm x (W)0.6cm. Base of wound is purple, indurated with surrounding erythematous and denuded skin. DTPI L Gluteal cheek (L)1.5cm x (W)1.3cm. Base of wound is indurated, purple with surrounding non-blanching erythema. Additional scattered areas that are maroon in colour noted to L gluteal cheek. Lateral L Heel boggy with non-blanching erythema with delineated margins. (L) 4cm x (W)4.5cm. Lateral R Heel Boggy with non-Blanchable erythema with delineated margins(L) 2.5cm x (W)2.5cm. Tx.Plan: Cleanse Sacrococcygeal area with saline. Apply TheraHoney , Apply Moisture Barrier Paste to Sacrum, R and L Buttocks. Cover entire Area with Optifoam drsgs. Change every 3 days and prn. Apply Moisture Barrier Paste to R and L Buttocks . Cover with Optifoam drsgs. Changee very 3 days and prn. Apply Cavilon Skin Barrier to R and L Trochanteric areas. Cover with Optifoam drsg. Change every 7 days and prn. Apply Cavilon Skin Barrier to R and L Heels. Cover each heel with Optifoam drsg. Change every 7 days and prn. Reposition at least every 2hours or as tolerated. Off-load heels with Pillow. APM/ERIK Mattress. (3) Pneumonia Assessment & Plan: Lungs: There is mild left lower lobe infiltrate consistent with pneumonia. Pleural space: Unremarkable. No pneumothorax. Heart: The heart size is at the upper limits of normal. Mediastinum: Unremarkable. Bones/joints: Unremarkable. IMPRESSION: There is mild left lower lobe infiltrate consistent with pneumonia. worsening on bipap now will monitor closely intubated now 03/21 wean vent Continue weaning. Will hopefully be extubated potentially. Gases noted. (4) COPD (chronic obstructive pulmonary disease) (5) Fever Eddei Perez Mar 26, 2020 21:22
--- NOTE | 2020-03-26 22:00 | NUR ---
NURSE NOTES: REPOSITION AND SUCTION VS STABLE
[2020-03-27] VITALS (24 sets, daily range): BP systolic 102–147; BP diastolic 51–82
--- NOTE | 2020-03-27 | NUR ---
NURSE NOTES: NO ACUTE RESP DISTRESS NOTED
--- NOTE | 2020-03-27 02:00 | NUR ---
NURSE NOTES: Suctioned tn beige secretions from pts mouth. 02 sat >95%. Oral care was done.
--- NOTE | 2020-03-27 04:00 | NUR ---
NURSE NOTES: Complete bed bath with bed changed was done. Sacral drsg was changed.
[2020-03-27] MEDS: Albuterol 90mcg Inhaler 8gm INH SCH ×6 (04:33→23:30)
[2020-03-27 05:25] LABS: BASOPHILS % (AUTO) 1.2 % (0.0-2.0); EOSINOPHILS % (AUTO) 1.4 % (0.0-3.0); HEMATOCRIT 29.7 % (37.0-47.0); HEMOGLOBIN 9.6 G/DL (12.0-16.0); LYMPHOCYTES % (AUTO) 16.1 % (20.0-45.0); MEAN CORPUSCULAR VOLUME 96 FL (80-99); MONOCYTES % (AUTO) 7.6 % (1.0-10.0); NEUTROPHILS % (AUTO) 73.7 % (45.0-75.0); PLATELET COUNT 352 K/UL (150-450); RED CELL DISTRIBUTION WIDTH 13.6 % (11.6-14.8); WHITE BLOOD COUNT 8.8 K/UL (4.8-10.8)
[2020-03-27 05:42] LABS: ANION GAP 7 mmol/L (5-15); BLOOD UREA NITROGEN 11 mg/dL (7-18); CALCIUM 8.3 MG/DL (8.5-10.1); CARBON DIOXIDE 29 MMOL/L (21-32); CHLORIDE 102 MMOL/L (98-107); CREATININE 0.6 MG/DL (0.55-1.30); POTASSIUM 3.4 MMOL/L (3.5-5.1); SODIUM 137 MMOL/L (136-145)
[2020-03-27] MEDS: Piperacillin/Tazobactam 3.375 GM in NS 110 ML IVPB SCH (05:43)
--- NOTE | 2020-03-27 05:55 | NUR ---
NURSE NOTES: Pts on Sinus Bradycardia 57/min. Bp 114/57. afebrile.
--- NOTE | 2020-03-27 07:00 | NUR ---
NURSE NOTES: Received report from SHARATH Xiong. Patient is observed in bed, awake, able to follow simple commands such as nodding and blinking. Patient is orally intubated with ETT 7.0 at 23cm on the lip line with vent settings as follows: AC 14, TV 500, FiO2 40%, and PEEP 5; patient is saturating 99% at this time, no acute distress noted. athletic monitor shows SR with HR of 60. Pulses are strong and palpable on the radial bilaterally. Patient has OGT in place, TF Jevity 1.2 infusing at 30ml/hr. HOB is elevated to avoid aspiration. PICC line noted on the left arm, intact, patent, and asymptomatic; 1/2 NS infusing at 50ml/hr. Patient has a Lainez catheter in place, draining to gravity with yellow urine output noted. Patient remains on P200 mattress at this time for skin alterations. No s/s of pain/distress at this time. All needs attended to. Bed is locked, alarmed, and in lowest position, side rails up x3, and call light left within reach. Will continue to monitor and will continue plan of care.
--- NOTE | 2020-03-27 07:16 | NUR ---
HAND-OFF: Report given to truman pete using sbar.
--- NOTE | 2020-03-27 07:18 | General Progress Note ---
Assessment/Plan Status: stable, progressing Assessment/Plan: Assessment - Resp failure - weaning - dysphagia, NGT dependent - COPD - Anemia - leukocytosis - improved - hypothyroid Recommendations - pulmonary f/u - NGT feeds - elevate HOB - follow labs and exam - PEG placement once stabilized Subjective Allergies: Coded Allergies: PENICILLINS (Verified Allergy, Unknown, 03/11/20) Subjective Above noted seen in ICU on vent tolerating NGT feeds soft BM per RN Objective Last 24 Hour Vital Signs Date Time Temp Pulse Resp B/P (MAP) Pulse Ox O2 Delivery O2 Flow Rate FiO2 03/27/20 06:47 59 14 100 Mechanical Ventilator 45 58 14 40 03/27/20 06:00 56 14 108/58 (75) 99 03/27/20 05:00 60 14 117/59 (78) 98 03/27/20 04:00 59 03/27/20 04:00 45 03/27/20 04:00 Mechanical Ventilator 03/27/20 04:00 99.0 60 16 102/51 (68) 99 03/27/20 03:30 61 15 99 Mechanical Ventilator 45 63 16 45 03/27/20 03:00 67 15 106/56 (73) 100 03/27/20 02:00 61 15 102/56 (71) 99 03/27/20 01:00 60 15 102/53 (69) 99 03/27/20 00:00 98.5 63 21 106/53 (70) 98 03/27/20 00:00 62 03/27/20 00:00 Mechanical Ventilator 03/27/20 00:00 45 03/26/20 23:30 60 15 99 Mechanical Ventilator 45 59 17 45 03/26/20 23:00 58 15 102/51 (68) 99 03/26/20 22:00 61 21 108/55 (72) 99 03/26/20 21:00 56 14 93/51 (65) 100 03/26/20 20:00 98.8 57 25 101/52 (68) 99 03/26/20 20:00 Mechanical Ventilator 03/26/20 20:00 45 03/26/20 20:00 100 03/26/20 19:30 63 21 99 Mechanical Ventilator 45 68 16 45 03/26/20 19:00 59 26 103/56 (72) 99 03/26/20 18:00 67 15 116/58 (77) 99 03/26/20 17:00 61 24 97/49 (65) 99 03/26/20 16:00 45 03/26/20 16:00 98.2 76 19 132/73 (92) 100 03/26/20 16:00 Mechanical Ventilator 03/26/20 16:00 67 03/26/20 15:20 70 14 98 Mechanical Ventilator 45 70 14 45 03/26/20 15:00 73 28 134/65 (88) 99 03/26/20 14:26 135/68 03/26/20 14:09 74 15 45 03/26/20 14:00 74 28 135/68 (90) 97 03/26/20 13:00 72 23 118/63 (81) 97 03/26/20 12:00 71 03/26/20 12:00 45 03/26/20 12:00 98.2 74 29 121/63 (82) 97 03/26/20 12:00 Mechanical Ventilator 03/26/20 11:20 63 23 98 Mechanical Ventilator 45 63 23 45 03/26/20 11:00 62 21 128/68 (88) 98 03/26/20 10:00 67 24 124/65 (84) 100 03/26/20 09:00 63 22 105/54 (71) 97 03/26/20 08:48 98 03/26/20 08:00 45 03/26/20 08:00 98.4 74 23 124/69 (87) 98 03/26/20 08:00 Mechanical Ventilator 03/26/20 08:00 72 03/26/20 07:40 68 21 45 03/26/20 07:20 65 14 96 Mechanical Ventilator 45 65 14 45 Intake and Output 03/26/20 03/27/20 19:00 07:00 Intake Total 1170.56941 ml 1144.1 ml Output Total 930 ml 980 ml Balance 240.19120 ml 164.1 ml Free Water 100 ml IV Total 820.96487 ml 714.1 ml Tube Feeding 240 ml 330 ml Other 110 ml Output Urine Total 930 ml 980 ml # Bowel Movements 1 3 Laboratory Tests 03/26/20 08:48: Arterial Blood pH 7.461H, Arterial Blood Partial Pressure CO2 39.0, Arterial Blood Partial Pressure O2 91.5, Arterial Blood HCO3 27.2H, Arterial Blood Oxygen Saturation 96.5, Arterial Blood Base Excess 3.2H, Keith Test Positive 03/27/20 04:45: White Blood Count 8.8, Red Blood Count 3.10L, Hemoglobin 9.6L, Hematocrit 29.7L , Mean Corpuscular Volume 96, Mean Corpuscular Hemoglobin 31.1H, Mean Corpuscular Hemoglobin Concent 32.5, Red Cell Distribution Width 13.6, Platelet Count 352, Mean Platelet Volume 8.1, Neutrophils (%) (Auto) 73.7, Lymphocytes (% ) (Auto) 16.1L, Monocytes (%) (Auto) 7.6, Eosinophils (%) (Auto) 1.4, Basophils (%) (Auto) 1.2, Prothrombin Time 10.9, Prothromb Time International Ratio 1.0, Activated Partial Thromboplast Time 29, Sodium Level 137, Potassium Level 3.4L, Chloride Level 102, Carbon Dioxide Level 29, Anion Gap 7, Blood Urea Nitrogen 11 , Creatinine 0.6, Estimat Glomerular Filtration Rate > 60, Glucose Level 106, Calcium Level 8.3L Height (Feet): 5 Height (Inches): 5.00 Weight (Pounds): 145 Objective Thin WW NCAT (+) ETT supple coarse BS RR abd soft NT ND no edema Douglas Tucker MD Mar 27, 2020 07:18
--- NOTE | 2020-03-27 08:05 | NUR ---
NURSE NOTES: Dr Tucker at bedside, assessed patient, updated on patient's condition. No new verbal orders received.
[2020-03-27] MEDS: Lactulose 20gm/30ml UDC NG SCH ×3 (08:14→16:50)
[2020-03-27] MEDS: Multivitamins W/Minerals 15 ML UDC NG SCH (08:15)
[2020-03-27] MEDS: Pantoprazole Inj IVP SCH (08:15)
[2020-03-27] MEDS: Ascorbic Acid 500mg tab NG SCH (08:15)
[2020-03-27] MEDS: Zinc Sulfate 220mg NG SCH (08:15)
[2020-03-27] MEDS: Midodrine 10mg tab NG SCH ×3 (08:15→17:42)
[2020-03-27] MEDS: Heparin 5000 units/ml inj SUBQ SCH ×2 (08:16→20:21)
--- NOTE | 2020-03-27 08:40 | NUR ---
NURSE NOTES: Patient remains awake and is able to follow simple commands at this time. AM scheduled medications administered; no residual noted from OGT. AM oral care provided; suctioned patient via ETT, noted thick, yellowish sputum. Dr Ledesma was present in the unit, notified about pt's AM lab results. No s/s of pain/acute distress at this time. Patient is afebrile. Safety precautions in place; bed is locked, alarmed, and in lowest position, side rails are up x3, and call light left within reach. All needs attended to and will continue to monitor patient.
--- NOTE | 2020-03-27 08:41 | General Progress Note ---
Assessment/Plan Problem List: (1) COPD (chronic obstructive pulmonary disease) ICD Codes: J44.9 - Chronic obstructive pulmonary disease, unspecified SNOMED: 29921910 Qualifiers: Qualified Codes: J44.9 - Chronic obstructive pulmonary disease, unspecified (2) Pneumonia ICD Codes: J18.9 - Pneumonia, unspecified organism SNOMED: 403856468 Qualifiers: Qualified Codes: J18.9 - Pneumonia, unspecified organism (3) Fever ICD Codes: R50.9 - Fever, unspecified SNOMED: 243866144 Status: stable, progressing Assessment/Plan: vent support wean per pulm iv abx repeat cultures- sputum and blood follow up labs ivf adjusted skin care turn q2 critical and guarded Subjective ROS Limited/Unobtainable: Yes Constitutional: Reports: malaise, weakness HEENT: Reports: no symptoms Cardiovascular: Reports: no symptoms Respiratory: Reports: shortness of breath, sputum Gastrointestinal/Abdominal: Reports: difficulty swallowing Genitourinary: Reports: no symptoms Neurologic/Psychiatric: Reports: anxiety, pre-existing deficit Endocrine: Reports: no symptoms Hematologic/Lymphatic: Reports: no symptoms Allergies: Coded Allergies: PENICILLINS (Verified Allergy, Unknown, 03/11/20) All Systems: reviewed and negative except above Subjective remains intubated. off pressors. no fevers. on ivf. labs noted- low k +moderate secretions. weaning Objective Last 24 Hour Vital Signs Date Time Temp Pulse Resp B/P (MAP) Pulse Ox O2 Delivery O2 Flow Rate FiO2 03/27/20 07:00 60 14 111/56 (74) 99 03/27/20 06:47 59 14 100 Mechanical Ventilator 45 58 14 40 03/27/20 06:00 56 14 108/58 (75) 99 03/27/20 05:00 60 14 117/59 (78) 98 03/27/20 04:00 59 03/27/20 04:00 45 03/27/20 04:00 Mechanical Ventilator 03/27/20 04:00 99.0 60 16 102/51 (68) 99 03/27/20 03:30 61 15 99 Mechanical Ventilator 45 63 16 45 03/27/20 03:00 67 15 106/56 (73) 100 03/27/20 02:00 61 15 102/56 (71) 99 03/27/20 01:00 60 15 102/53 (69) 99 03/27/20 00:00 98.5 63 21 106/53 (70) 98 03/27/20 00:00 62 03/27/20 00:00 Mechanical Ventilator 03/27/20 00:00 45 03/26/20 23:30 60 15 99 Mechanical Ventilator 45 59 17 45 03/26/20 23:00 58 15 102/51 (68) 99 03/26/20 22:00 61 21 108/55 (72) 99 03/26/20 21:00 56 14 93/51 (65) 100 03/26/20 20:00 98.8 57 25 101/52 (68) 99 03/26/20 20:00 Mechanical Ventilator 03/26/20 20:00 45 03/26/20 20:00 100 03/26/20 19:30 63 21 99 Mechanical Ventilator 45 68 16 45 03/26/20 19:00 59 26 103/56 (72) 99 03/26/20 18:00 67 15 116/58 (77) 99 03/26/20 17:00 61 24 97/49 (65) 99 03/26/20 16:00 45 03/26/20 16:00 98.2 76 19 132/73 (92) 100 03/26/20 16:00 Mechanical Ventilator 03/26/20 16:00 67 03/26/20 15:20 70 14 98 Mechanical Ventilator 45 70 14 45 03/26/20 15:00 73 28 134/65 (88) 99 03/26/20 14:26 135/68 03/26/20 14:09 74 15 45 03/26/20 14:00 74 28 135/68 (90) 97 03/26/20 13:00 72 23 118/63 (81) 97 03/26/20 12:00 71 03/26/20 12:00 45 03/26/20 12:00 98.2 74 29 121/63 (82) 97 03/26/20 12:00 Mechanical Ventilator 03/26/20 11:20 63 23 98 Mechanical Ventilator 45 63 23 45 03/26/20 11:00 62 21 128/68 (88) 98 03/26/20 10:00 67 24 124/65 (84) 100 03/26/20 09:00 63 22 105/54 (71) 97 03/26/20 08:48 98 Intake and Output 03/26/20 03/27/20 19:00 07:00 Intake Total 1170.04261 ml 1251.6 ml Output Total 930 ml 1055 ml Balance 240.38809 ml 196.6 ml Free Water 100 ml IV Total 820.78765 ml 791.6 ml Tube Feeding 240 ml 360 ml Other 110 ml Output Urine Total 930 ml 1055 ml # Bowel Movements 1 3 Laboratory Tests 03/26/20 08:48: Arterial Blood pH 7.461H, Arterial Blood Partial Pressure CO2 39.0, Arterial Blood Partial Pressure O2 91.5, Arterial Blood HCO3 27.2H, Arterial Blood Oxygen Saturation 96.5, Arterial Blood Base Excess 3.2H, Keith Test Positive 03/27/20 04:45: White Blood Count 8.8, Red Blood Count 3.10L, Hemoglobin 9.6L, Hematocrit 29.7L , Mean Corpuscular Volume 96, Mean Corpuscular Hemoglobin 31.1H, Mean Corpuscular Hemoglobin Concent 32.5, Red Cell Distribution Width 13.6, Platelet Count 352, Mean Platelet Volume 8.1, Neutrophils (%) (Auto) 73.7, Lymphocytes (% ) (Auto) 16.1L, Monocytes (%) (Auto) 7.6, Eosinophils (%) (Auto) 1.4, Basophils (%) (Auto) 1.2, Prothrombin Time 10.9, Prothromb Time International Ratio 1.0, Activated Partial Thromboplast Time 29, Sodium Level 137, Potassium Level 3.4L, Chloride Level 102, Carbon Dioxide Level 29, Anion Gap 7, Blood Urea Nitrogen 11 , Creatinine 0.6, Estimat Glomerular Filtration Rate > 60, Glucose Level 106, Calcium Level 8.3L Height (Feet): 5 Height (Inches): 5.00 Weight (Pounds): 145 Objective General Appearance: WD/WN, lethargic. intubated Neck: non-tender Cardiovascular: normal rate, regular rhythm Respiratory/Chest: chest wall non-tender, lungs clear, normal breath sounds Abdomen: normal bowel sounds, non tender, soft, no organomegaly Edema: no edema noted Arm (L), no edema noted Arm (R), no edema noted Leg (L), no edema noted Leg (R), no edema noted Pedal (L), no edema noted Pedal (R), no edema noted Generalized Neurologic: alert [place]oto,Isaak M. MD Mar 27, 2020 08:41
--- NOTE | 2020-03-27 09:00 | NUR ---
NURSE NOTES: Dr Blake present in the unit, updated regarding patient's condition. No new verbal orders received at this time.
--- NOTE | 2020-03-27 09:05 | NUR ---
NURSE NOTES: RT at bedside for weaning. Will continue to monitor patient.
--- NOTE | 2020-03-27 10:00 | NUR ---
NURSE NOTES: Turned and repositioned patient for comfort and safety; placed pillows on extremities for support. Patient remains on CPAP for weaning at this time. No BM noted at this time; left patient clean and dry. Safety measures remains in place. Dr Bailey present at bedside and seen patient, updated on patient's condition; notified and made aware regarding patient's sputum/secretions. Will continue to monitor patient.
--- NOTE | 2020-03-27 10:34 | Infectious Diseases Prog Note ---
Assessment/Plan Assessment/Plan antibiotics : none A 1. pneumonia COVID 19 test negative x 2 2. respiratory failure 3. COPD 4. leucocytosis resolved 5. hypothyroidism 6. schizophrenia P 1. observe off antibiotics 2, extubation planned 3. sputum cultures Subjective ROS Limited/Unobtainable: Yes Allergies: Coded Allergies: PENICILLINS (Verified Allergy, Unknown, 03/11/20) Objective Vital Signs Last 24 Hour Vital Signs Date Time Temp Pulse Resp B/P (MAP) Pulse Ox O2 Delivery O2 Flow Rate FiO2 03/27/20 10:00 66 18 136/66 (89) 98 03/27/20 09:00 66 20 135/66 (89) 99 03/27/20 09:00 68 22 40 40 03/27/20 09:00 40 03/27/20 08:00 98.1 64 15 123/64 (83) 99 03/27/20 08:00 72 03/27/20 08:00 Mechanical Ventilator 03/27/20 07:00 60 14 111/56 (74) 99 03/27/20 06:47 59 14 100 Mechanical Ventilator 45 58 14 40 03/27/20 06:00 56 14 108/58 (75) 99 03/27/20 05:00 60 14 117/59 (78) 98 03/27/20 04:00 59 03/27/20 04:00 45 03/27/20 04:00 Mechanical Ventilator 03/27/20 04:00 99.0 60 16 102/51 (68) 99 03/27/20 03:30 61 15 99 Mechanical Ventilator 45 63 16 45 03/27/20 03:00 67 15 106/56 (73) 100 03/27/20 02:00 61 15 102/56 (71) 99 03/27/20 01:00 60 15 102/53 (69) 99 03/27/20 00:00 98.5 63 21 106/53 (70) 98 03/27/20 00:00 62 03/27/20 00:00 Mechanical Ventilator 03/27/20 00:00 45 03/26/20 23:30 60 15 99 Mechanical Ventilator 45 59 17 45 03/26/20 23:00 58 15 102/51 (68) 99 03/26/20 22:00 61 21 108/55 (72) 99 03/26/20 21:00 56 14 93/51 (65) 100 03/26/20 20:00 98.8 57 25 101/52 (68) 99 03/26/20 20:00 Mechanical Ventilator 03/26/20 20:00 45 03/26/20 20:00 100 03/26/20 19:30 63 21 99 Mechanical Ventilator 45 68 16 45 03/26/20 19:00 59 26 103/56 (72) 99 03/26/20 18:00 67 15 116/58 (77) 99 03/26/20 17:00 61 24 97/49 (65) 99 03/26/20 16:00 45 03/26/20 16:00 98.2 76 19 132/73 (92) 100 03/26/20 16:00 Mechanical Ventilator 03/26/20 16:00 67 03/26/20 15:20 70 14 98 Mechanical Ventilator 45 70 14 45 03/26/20 15:00 73 28 134/65 (88) 99 03/26/20 14:26 135/68 03/26/20 14:09 74 15 45 03/26/20 14:00 74 28 135/68 (90) 97 03/26/20 13:00 72 23 118/63 (81) 97 03/26/20 12:00 71 03/26/20 12:00 45 03/26/20 12:00 98.2 74 29 121/63 (82) 97 03/26/20 12:00 Mechanical Ventilator 03/26/20 11:20 63 23 98 Mechanical Ventilator 45 63 23 45 03/26/20 11:00 62 21 128/68 (88) 98 Height (Feet): 5 Height (Inches): 5.00 Weight (Pounds): 145 HEENT: other - intubated Respiratory/Chest: lungs clear Cardiovascular: normal rate, regular rhythm, no gallop/murmur Abdomen: soft, non tender Extremities: no edema, other - left arm PICC Laboratory Tests Test 03/27/20 04:45 White Blood Count 8.8 K/UL (4.8-10.8) Red Blood Count 3.10 M/UL (4.20-5.40) L Hemoglobin 9.6 G/DL (12.0-16.0) L Hematocrit 29.7 % (37.0-47.0) L Mean Corpuscular Volume 96 FL (80-99) Mean Corpuscular Hemoglobin 31.1 PG (27.0-31.0) H Mean Corpuscular Hemoglobin Concent 32.5 G/DL (32.0-36.0) Red Cell Distribution Width 13.6 % (11.6-14.8) Platelet Count 352 K/UL (150-450) Mean Platelet Volume 8.1 FL (6.5-10.1) Neutrophils (%) (Auto) 73.7 % (45.0-75.0) Lymphocytes (%) (Auto) 16.1 % (20.0-45.0) L Monocytes (%) (Auto) 7.6 % (1.0-10.0) Eosinophils (%) (Auto) 1.4 % (0.0-3.0) Basophils (%) (Auto) 1.2 % (0.0-2.0) Prothrombin Time 10.9 SEC (9.30-11.50) Prothromb Time International Ratio 1.0 (0.9-1.1) Activated Partial Thromboplast Time 29 SEC (23-33) Sodium Level 137 MMOL/L (136-145) Potassium Level 3.4 MMOL/L (3.5-5.1) L Chloride Level 102 MMOL/L (98-107) Carbon Dioxide Level 29 MMOL/L (21-32) Anion Gap 7 mmol/L (5-15) Blood Urea Nitrogen 11 mg/dL (7-18) Creatinine 0.6 MG/DL (0.55-1.30) Estimat Glomerular Filtration Rate > 60 mL/min (>60) Glucose Level 106 MG/DL (74-106) Calcium Level 8.3 MG/DL (8.5-10.1) L Current Medications Medications (Trade) Dose Ordered Sig/Ranjeet Route PRN Reason Start Time Stop Time Status Last Admin Dose Admin Acetaminophen (Tylenol) 650 mg Q4H PRN NG Mild Pain (1-3)/Fever > 100.5 03/22/20 15:30 04/10/20 19:29 Albuterol Sulfate (Proventil MDI) 2 puff Q4HRT INH 03/18/20 15:00 06/13/20 02:59 03/27/20 06:50 Ascorbic Acid (Vitamin C) 500 mg DAILY NG 03/23/20 09:00 04/11/20 08:59 03/27/20 08:15 Atropine Sulfate (Atropine) 1 mg Q1H PRN IVP HR <40BPM 03/18/20 13:30 04/17/20 13:29 03/20/20 08:01 Chlorhexidine Gluconate (Mary-Hex 2%) 1 applic DAILY@2000 TOPIC 03/21/20 20:00 06/19/20 19:59 03/26/20 20:34 Heparin Sodium (Porcine) (Heparin 5000 units/ml) 5,000 units EVERY 12 HOURS SUBQ 03/18/20 21:00 04/25/20 20:59 03/27/20 08:16 Lactulose (Cephulac) 30 gm THREE TIMES A DAY NG 03/22/20 18:00 04/18/20 09:14 03/27/20 08:14 Levothyroxine Sodium (Synthroid) 50 mcg DAILY IV 03/19/20 09:00 04/17/20 13:14 03/27/20 08:31 Loratadine (Claritin 10mg) 10 mg DAILY ORAL 03/23/20 09:00 04/11/20 08:59 03/27/20 08:15 Magnesium Hydroxide (Mom) 30 ml HSPRN PRN NG Constipation 03/22/20 15:30 04/17/20 13:59 Midodrine (Pro-Amatine) 10 mg THREE TIMES A DAY NG 03/24/20 13:00 06/21/20 08:59 03/27/20 08:15 Multivitamins (Multivitamins W/ Minerals 15ml Liquid) 15 ml DAILY NG 03/23/20 09:00 04/11/20 08:59 03/27/20 08:15 Norepinephrine Bitartrate 250 ml @ 0 mls/hr Q24H IV 03/23/20 14:52 06/21/20 14:51 Pantoprazole (Protonix) 40 mg DAILY IVP 03/23/20 09:00 04/22/20 08:59 03/27/20 08:15 Sodium Chloride 1,000 ml @ 50 mls/hr Q20H IV 03/23/20 15:15 04/22/20 15:14 03/26/20 21:33 Zinc Sulfate (Zinc Sulfate) 220 mg DAILY NG 03/23/20 09:00 06/10/20 08:59 03/27/20 08:15 Eh Bailey MD Mar 27, 2020 10:34
--- NOTE | 2020-03-27 11:26 | NUR ---
NURSE NOTES: Sputum collected by RT, sent down to lab.
--- NOTE | 2020-03-27 12:00 | NUR ---
NURSE NOTES: Repositioned and turned patient for safety and comfort. HOB remains elevated for aspiration precautions. Patient remains on CPAP at this time for weaning. No acute distress noted. Oral care provided; suctioned patient via ETT with large amount of thick, yellowish sputum noted. Safety measures remains in place; bed locked, alarmed, and in lowest position, side rails up x3, and call light is within reach. Will continue to monitor patient.
--- NOTE | 2020-03-27 13:43 | Critical Care Progress Note ---
Assessment/Plan Assessment/Plan IMPRESSION: 1. COPD 2. Hypercapnia and hypoxemia. 3. Pneumonia,fpc acquired. COVID negative 4. Hypothyroidism. 5. History of allergies. 6. Severe protein-calorie malnutrition. 7. Mild leukocytosis. 8. acute respiratory failure 9. pulmonary congestion care noted IV antibiotics/ all reviewed respiratory care as is reviewed changes; monitor secretions- extubate when reduced and can tolerate Ventilatory support as is; weaning daily as tolerated monitor for CO2 retention and congestion maintain meds DVT prophylaxis; supportive care suction as needed; hope to avoid trach aspiration precautions position change and off load oxygen therapy as is hope to extubate soon monitor nutrition medications/laboratory data/nursing notes/ICU care reviewed in detail note reviewed and edited care discussed with RN and RT ICU time spent >40 minutes Critical Care - Subjective Interval Events: still with significant secretions on vent was weaning but still needs airway d/w RN in detail ROS Limited/Unobtainable: Yes Condition: critical EKG Rhythm: Sinus Rhythm Residuals: minimal Tube Feeding Tolerated: yes I&O: Intake and Output 03/26/20 03/27/20 19:00 07:00 Intake Total 1170.76418 ml 1251.6 ml Output Total 930 ml 1055 ml Balance 240.20895 ml 196.6 ml Free Water 100 ml IV Total 820.06453 ml 791.6 ml Tube Feeding 240 ml 360 ml Other 110 ml Output Urine Total 930 ml 1055 ml # Bowel Movements 1 3 Critical Care - Objective ET-Tube: 7.0 ET Position: 23 Last 24 Hour Vital Signs Date Time Temp Pulse Resp B/P (MAP) Pulse Ox O2 Delivery O2 Flow Rate FiO2 03/27/20 13:00 60 22 110/64 (79) 99 03/27/20 12:00 Mechanical Ventilator 03/27/20 12:00 98.2 61 22 110/56 (74) 99 03/27/20 12:00 69 03/27/20 12:00 45 03/27/20 11:05 76 20 100 Mechanical Ventilator 40 70 21 40 40 03/27/20 11:00 71 23 115/58 (77) 99 03/27/20 10:00 66 18 136/66 (89) 98 03/27/20 09:00 66 20 135/66 (89) 99 03/27/20 09:00 68 22 40 40 03/27/20 09:00 40 03/27/20 08:00 98.1 64 15 123/64 (83) 99 03/27/20 08:00 72 03/27/20 08:00 Mechanical Ventilator 03/27/20 07:00 60 14 111/56 (74) 99 03/27/20 06:47 59 14 100 Mechanical Ventilator 45 58 14 40 03/27/20 06:00 56 14 108/58 (75) 99 03/27/20 05:00 60 14 117/59 (78) 98 03/27/20 04:00 59 03/27/20 04:00 45 03/27/20 04:00 Mechanical Ventilator 03/27/20 04:00 99.0 60 16 102/51 (68) 99 03/27/20 03:30 61 15 99 Mechanical Ventilator 45 63 16 45 03/27/20 03:00 67 15 106/56 (73) 100 03/27/20 02:00 61 15 102/56 (71) 99 03/27/20 01:00 60 15 102/53 (69) 99 03/27/20 00:00 98.5 63 21 106/53 (70) 98 03/27/20 00:00 62 03/27/20 00:00 Mechanical Ventilator 03/27/20 00:00 45 03/26/20 23:30 60 15 99 Mechanical Ventilator 45 59 17 45 03/26/20 23:00 58 15 102/51 (68) 99 03/26/20 22:00 61 21 108/55 (72) 99 03/26/20 21:00 56 14 93/51 (65) 100 03/26/20 20:00 98.8 57 25 101/52 (68) 99 03/26/20 20:00 Mechanical Ventilator 03/26/20 20:00 45 03/26/20 20:00 100 03/26/20 19:30 63 21 99 Mechanical Ventilator 45 68 16 45 03/26/20 19:00 59 26 103/56 (72) 99 03/26/20 18:00 67 15 116/58 (77) 99 03/26/20 17:00 61 24 97/49 (65) 99 03/26/20 16:00 45 03/26/20 16:00 98.2 76 19 132/73 (92) 100 03/26/20 16:00 Mechanical Ventilator 03/26/20 16:00 67 6/22/20 15:20 70 14 98 Mechanical Ventilator 45 70 14 45 03/26/20 15:00 73 28 134/65 (88) 99 03/26/20 14:26 135/68 03/26/20 14:09 74 15 45 03/26/20 14:00 74 28 135/68 (90) 97 Labs: Laboratory Tests Test 03/27/20 04:45 03/27/20 11:46 White Blood Count 8.8 K/UL (4.8-10.8) Red Blood Count 3.10 M/UL (4.20-5.40) L Hemoglobin 9.6 G/DL (12.0-16.0) L Hematocrit 29.7 % (37.0-47.0) L Mean Corpuscular Volume 96 FL (80-99) Mean Corpuscular Hemoglobin 31.1 PG (27.0-31.0) H Mean Corpuscular Hemoglobin Concent 32.5 G/DL (32.0-36.0) Red Cell Distribution Width 13.6 % (11.6-14.8) Platelet Count 352 K/UL (150-450) Mean Platelet Volume 8.1 FL (6.5-10.1) Neutrophils (%) (Auto) 73.7 % (45.0-75.0) Lymphocytes (%) (Auto) 16.1 % (20.0-45.0) L Monocytes (%) (Auto) 7.6 % (1.0-10.0) Eosinophils (%) (Auto) 1.4 % (0.0-3.0) Basophils (%) (Auto) 1.2 % (0.0-2.0) Prothrombin Time 10.9 SEC (9.30-11.50) Prothromb Time International Ratio 1.0 (0.9-1.1) Activated Partial Thromboplast Time 29 SEC (23-33) Sodium Level 137 MMOL/L (136-145) Potassium Level 3.4 MMOL/L (3.5-5.1) L Chloride Level 102 MMOL/L (98-107) Carbon Dioxide Level 29 MMOL/L (21-32) Anion Gap 7 mmol/L (5-15) Blood Urea Nitrogen 11 mg/dL (7-18) Creatinine 0.6 MG/DL (0.55-1.30) Estimat Glomerular Filtration Rate > 60 mL/min (>60) Glucose Level 106 MG/DL (74-106) Calcium Level 8.3 MG/DL (8.5-10.1) L Arterial Blood pH 7.484 (7.350-7.450) Arterial Blood Partial Pressure CO2 38.9 mmHg (35.0-45.0) Arterial Blood Partial Pressure O2 92.9 mmHg (75.0-100.0) Arterial Blood HCO3 28.6 mmol/L (22.0-26.0) H Arterial Blood Oxygen Saturation 97.1 % (95-100) Arterial Blood Base Excess 4.9 (-2-2) H Keith Test Positive Objective: GENERAL: An ill-appearing female. NAD on Vent NECK: Supple. No adenopathy. LUNGS: Coarse breath sounds. Moderate air entry. ETT in place; no rhonchi or wheeze CARDIAC: S1, S2. Regular rate and rhythm without murmur. ABDOMEN: Soft, nontender, nondistended. feeding tube EXTREMITIES: No cyanosis, clubbing, or edema. reduced LOC resting on the vent reviewed and edited Javier Blake MD Mar 27, 2020 13:43
--- NOTE | 2020-03-27 14:00 | NUR ---
NURSE NOTES: Patient resting in bed, eyes closed, no acute distress noted; still weaning on CPAP. Will continue to monitor.
--- NOTE | 2020-03-27 14:07 | Diagnostic Imaging Report ---
Procedure: XRAY Chest 1v Reason for study: Reason For Exam: F/U Comparison films: 03/25/2020. FINDINGS: Endotracheal tube and NG tube remain in place. Mild bilateral infiltrates not significantly changed . Retrocardiac consolidation is slightly denser. Cardiac and mediastinal silhouette are within normal limits. Small left effusion noted. The bony thorax appear unremarkable. IMPRESSION: Slight increase in left retrocardiac consolidation. Other areas of alveolar infiltrates not significantly changed. Small left effusion.
[2020-03-27] MEDS: Norepinephrine 4mg/NS Premix 250 ML IV SCH (14:28)
--- NOTE | 2020-03-27 14:37 | NUR ---
*-* INSURANCE *-* UPDATED CLINICALS AND CLINICALS HAVE BEEN FAXED TO: [facility] Ref# [id number] F: [phone]
--- NOTE | 2020-03-27 16:00 | NUR ---
NURSE NOTES: Complete bed bath given. Large, brown, soft, watery stool noted. Linens changed, and placed patient in clean gown. Soiled Optifoam dressings replaced. PM oral care rendered; suctioned patient via ETT with thick, yellowish sputum noted. Patient remains on CPAP, weaning, no acute distress noted. Patient's OGT remains in place, TF resumed after bed bath. Left upper arm PICC line intact, 1/2 NS remains infusing at 50ml/hr. No s/s of pain/discomfort at this time. Safety measures in place; bed is locked, alarmed, and in lowest position, side rails up x3, and call light left within reach. All need attended to, will continue to monitor.
--- NOTE | 2020-03-27 16:55 | NUR ---
CASE MANAGEMENT:REVIEW 03/27/20 SI;COPD. PNA. RESPIRATORY FAILURE~ORALLY INTUBATED. 98.1 64 15 123/64 99% MECH VENT FIO2 @ 40 H/H 9.6/29.7 K+ 3.4 CA+ 8.3 ABG: pH 7.484 HCO3 28.6 IS;IV ZOSYN TID IV NS @ 50 ML/HR PROTONIX IV QD MIDODRINE NGT TID VIT C NGT QD ZINC SULFATE NGT QD ALBUTEROL INH Q4HR HEPARIN SQ BID LACTULOSE NG TID ICU STATUS DCP:[facility] WHEN STABLE PLAN: WEANING TRAILS INCREASE SECRETION HOLD EXTUBATION - RE-EVAL IN AM SPUTUM CX COLLECTED
--- NOTE | 2020-03-27 17:34 | NUR ---
NURSE NOTES: RT at bedside, patient placed back AC mode.
--- NOTE | 2020-03-27 18:00 | NUR ---
NURSE NOTES: Patient observed in bed, asleep, no s/s of acute distress. Repositioned for safety and comfort, placed pillows on extremities for support. TF ongoing, IV fluids infusing at prescribed rate. Will continue to monitor.
--- NOTE | 2020-03-27 18:38 | Surgery Progress Note ---
Surgery Progress Note Subjective Additional Comments Tolerated weaning most of the day. Now back on support. Labs noted. Exam stable. Plan potential extubation tomorrow she is awake eyes open Objective Last 24 Hour Vital Signs Date Time Temp Pulse Resp B/P (MAP) Pulse Ox O2 Delivery O2 Flow Rate FiO2 03/27/20 18:00 57 17 117/68 (84) 96 03/27/20 17:31 62 18 45 03/27/20 17:25 98 03/27/20 17:00 70 22 147/82 (103) 100 03/27/20 16:00 Mechanical Ventilator 03/27/20 16:00 67 03/27/20 16:00 40 03/27/20 16:00 97.5 74 24 142/81 (101) 99 03/27/20 15:08 70 26 131/67 (88) 98 03/27/20 14:54 60 22 99 Mechanical Ventilator 40 64 25 40 40 03/27/20 14:28 108/57 03/27/20 14:00 62 23 108/57 (74) 98 03/27/20 13:00 60 22 110/64 (79) 99 03/27/20 12:00 Mechanical Ventilator 03/27/20 12:00 98.2 61 22 110/56 (74) 99 03/27/20 12:00 69 03/27/20 12:00 40 03/27/20 11:05 76 20 100 Mechanical Ventilator 40 70 21 40 40 03/27/20 11:00 71 23 115/58 (77) 99 03/27/20 10:00 66 18 136/66 (89) 98 03/27/20 09:00 66 20 135/66 (89) 99 03/27/20 09:00 68 22 40 40 03/27/20 09:00 40 03/27/20 08:00 98.1 64 15 123/64 (83) 99 03/27/20 08:00 72 03/27/20 08:00 Mechanical Ventilator 03/27/20 07:00 60 14 111/56 (74) 99 03/27/20 06:47 59 14 100 Mechanical Ventilator 45 58 14 40 03/27/20 06:00 56 14 108/58 (75) 99 03/27/20 05:00 60 14 117/59 (78) 98 03/27/20 04:00 59 03/27/20 04:00 45 03/27/20 04:00 Mechanical Ventilator 03/27/20 04:00 99.0 60 16 102/51 (68) 99 03/27/20 03:30 61 15 99 Mechanical Ventilator 45 63 16 45 03/27/20 03:00 67 15 106/56 (73) 100 03/27/20 02:00 61 15 102/56 (71) 99 03/27/20 01:00 60 15 102/53 (69) 99 03/27/20 00:00 98.5 63 21 106/53 (70) 98 03/27/20 00:00 62 03/27/20 00:00 Mechanical Ventilator 03/27/20 00:00 45 03/26/20 23:30 60 15 99 Mechanical Ventilator 45 59 17 45 03/26/20 23:00 58 15 102/51 (68) 99 03/26/20 22:00 61 21 108/55 (72) 99 03/26/20 21:00 56 14 93/51 (65) 100 03/26/20 20:00 98.8 57 25 101/52 (68) 99 03/26/20 20:00 Mechanical Ventilator 03/26/20 20:00 45 03/26/20 20:00 100 03/26/20 19:30 63 21 99 Mechanical Ventilator 45 68 16 45 03/26/20 19:00 59 26 103/56 (72) 99 I&O Intake and Output 03/26/20 03/27/20 19:00 07:00 Intake Total 1170.28628 ml 1251.6 ml Output Total 930 ml 1055 ml Balance 240.68062 ml 196.6 ml Free Water 100 ml IV Total 820.15960 ml 791.6 ml Tube Feeding 240 ml 360 ml Other 110 ml Output Urine Total 930 ml 1055 ml # Bowel Movements 1 3 Dressing: other Wound: other Drains: other Cardiovascular: RSR Respiratory: decreased breath sounds Abdomen: soft, non-tender, present bowel sounds Extremities: no edema, no tenderness, no cyanosis Laboratory Tests Test 03/27/20 04:45 03/27/20 11:46 White Blood Count 8.8 K/UL (4.8-10.8) Red Blood Count 3.10 M/UL (4.20-5.40) L Hemoglobin 9.6 G/DL (12.0-16.0) L Hematocrit 29.7 % (37.0-47.0) L Mean Corpuscular Volume 96 FL (80-99) Mean Corpuscular Hemoglobin 31.1 PG (27.0-31.0) H Mean Corpuscular Hemoglobin Concent 32.5 G/DL (32.0-36.0) Red Cell Distribution Width 13.6 % (11.6-14.8) Platelet Count 352 K/UL (150-450) Mean Platelet Volume 8.1 FL (6.5-10.1) Neutrophils (%) (Auto) 73.7 % (45.0-75.0) Lymphocytes (%) (Auto) 16.1 % (20.0-45.0) L Monocytes (%) (Auto) 7.6 % (1.0-10.0) Eosinophils (%) (Auto) 1.4 % (0.0-3.0) Basophils (%) (Auto) 1.2 % (0.0-2.0) Prothrombin Time 10.9 SEC (9.30-11.50) Prothromb Time International Ratio 1.0 (0.9-1.1) Activated Partial Thromboplast Time 29 SEC (23-33) Sodium Level 137 MMOL/L (136-145) Potassium Level 3.4 MMOL/L (3.5-5.1) L Chloride Level 102 MMOL/L (98-107) Carbon Dioxide Level 29 MMOL/L (21-32) Anion Gap 7 mmol/L (5-15) Blood Urea Nitrogen 11 mg/dL (7-18) Creatinine 0.6 MG/DL (0.55-1.30) Estimat Glomerular Filtration Rate > 60 mL/min (>60) Glucose Level 106 MG/DL (74-106) Calcium Level 8.3 MG/DL (8.5-10.1) L Arterial Blood pH 7.484 (7.350-7.450) Arterial Blood Partial Pressure CO2 38.9 mmHg (35.0-45.0) Arterial Blood Partial Pressure O2 92.9 mmHg (75.0-100.0) Arterial Blood HCO3 28.6 mmol/L (22.0-26.0) H Arterial Blood Oxygen Saturation 97.1 % (95-100) Arterial Blood Base Excess 4.9 (-2-2) H Keith Test Positive Plan Problems: (1) Malnutrition Assessment & Plan: not eating enough TF started adv as tolerated bowel regimen DDAILY ESTIMATED NEEDS: Needs based on Wound, pulmonary / 56kg 25-35 kcals/kg 9743-4132 total kcals 1.25-1.8 g protein/kg 70-100 g total protein 25-30 mL/kg 4897-6410 total fluid mLs NUTRITION DIAGNOSIS: * Swallowing difficulty R/T dysphagia as evidenced by CORRUGATOR HELPER w/ rec for NPO, now on NGT feeds. * Increased kcal/prot/micronutrients needs R/T wound healing as evidenced by pt admitted w/ multiple wounds including full thickness wound @ sacrum, TPI wound @ L Gluteal cheek, and non-Blanchable erythema @ BL heels. CURRENT TF:Jevity 1.2 @30ml/hr ENTERAL NUTRITION RECOMMENDATIONS: JEVITY 1.2 goal of 55ml/hr x24 hrs to provide 1320ml, 1584 kcal, 73g pro, 1065ml free H2O - rec to INCREASE current TF as tolerated to goal of 55ml/hr to better meet est needs. - flush per CHRISTINA JONES over 30 degrees ADDITIONAL RECOMMENDATIONS: * Per SNF: HT=66" DW=270puh (03/07/20) * Wound healing: continue MVI, Vit C, and ZnSO4 * VIA NGT-> add TONI BID for wound care TF recs as above * Monitor lytes, replete as needed THIS 60 Y.O.M. WAS ADMITTED WITH ACUTE ISSUES - FEVER, HYPOXIC WITH LOW 02 SATS ON NON-REBREATHER, RESP RATE 18 BPM INITIALLY PER MEDICAL RECORD. PER RN, THE PATIENT HAD A RAPID RESPOSE THIS MORNING (DESAT TO 90S AND RAPID RESP RATE). H/O COPD, CARDIAC DZ, HYPOTHYROIDISM, HTN, ALLERGIC RHINITIS, SCHIZOPHRENIA (ON OLANZAPINE AT SNF), BASELINE NONVERBAL. PER POLST FULL TX BUT NO INFORMATION REGARDING TUBE FEEDING PREFERENCES. AT SNF ON A REGULAR DIET TEXTURE AND THIN LIQUIDS WITH PROSTAT SF DRINK WITH MEALS. NOW ON A REGULAR TEXTURE DIET AND THIN LIQUIDS BUT DID NOT TAKE ANY PO. PER LAURIE EARLY, THE PT UNABLE TO TAKE LARGE PILLS BUT APPEARED TO TOLERATE CRUSHED MEDS WITH APPLESAUCE W/O OVERT ASPIRATION. PATIENT SEEN WITH RTFUNMI. PER RT RESP RATE 22 BPM AND NOT ABLE TO ongoing unintelligible confabulations. Patient did request a sandwich, however, not appropriate for regular texture at this time. VITALS ON 2 L NASAL CANNULA: HR: 73; RR: 20; SP02: 95% Patient's oral hygiene is improving, ongoing poor speech intelligibility which appears to be more due to poor articulation precision/oral motor coordination versus 2/2 dry mouth. CXR on 03/14/20: Findings: Interim considerable improvement of previously demonstrated left lower lobe infiltrate. There is a residual disease in the retrocardiac region as well as generalized reticular interstitial opacities throughout the left mid and lower lung. There is questionably a 3 cm spiculated opacity projected over the apex. Minimal right mid and lower lung reticular opacities are also demonstrated. There is some right midlung atelectasis versus thickening of the minor fissure. The heart size is normal. The pleural spaces are clear Impression: Considerable improvement the persistence of previously demonstrated left mid and lower lung infiltrates, since prior study of 03/11/2020. CORRUGATOR HELPER plans to continue to f/u and monitor Patients readiness for PO trials for diet texture upgrade. RN aware of recommendations, plan, and aspiration precautions sign posted above Patients HOB. RECOMMENDATIONS: 1. Continue Moist Puree with Eden Thick Liquids Diet via 1 to 1 careful handfeeding while implementing posted aspiration precautions - RD recommendations appreciated for diet texture/type 2. Patient requires oral hygiene BID + lip moisturizer. (2) Decubitus skin ulcer Assessment & Plan: Pt presented on admission with multiple pressure injuries. Full thickness Pressure injury Sacrococcygeal area. (L)4cm x (W)2.5cm. Base of wound is fatou with scattered slough ,which was easily removed with gentle friction. Wound is now fatou with 25% soft necrosis at distal base of wound. Small amt sanguineous exudate noted.No odor noted. Periwound erythematous and denuded. Two additional Pressure Injuries noted to R gluteal cheek.(Proximal) Base of wound is purple and indurated(L)3cm x (W)1.5cm. Surrounding erythematous and denuded skin (Distal) R gluteus(L)1.4cm x (W)0.6cm. Base of wound is purple, indurated with surrounding erythematous and denuded skin. DTPI L Gluteal cheek (L)1.5cm x (W)1.3cm. Base of wound is indurated, purple with surrounding non-blanching erythema. Additional scattered areas that are maroon in colour noted to L gluteal cheek. Lateral L Heel boggy with non-blanching erythema with delineated margins. (L) 4cm x (W)4.5cm. Lateral R Heel Boggy with non-Blanchable erythema with delineated margins(L) 2.5cm x (W)2.5cm. Tx.Plan: Cleanse Sacrococcygeal area with saline. Apply TheraHoney , Apply Moisture Barrier Paste to Sacrum, R and L Buttocks. Cover entire Area with Optifoam drsgs. Change every 3 days and prn. Apply Moisture Barrier Paste to R and L Buttocks . Cover with Optifoam drsgs. Changee very 3 days and prn. Apply Cavilon Skin Barrier to R and L Trochanteric areas. Cover with Optifoam drsg. Change every 7 days and prn. Apply Cavilon Skin Barrier to R and L Heels. Cover each heel with Optifoam drsg. Change every 7 days and prn. Reposition at least every 2hours or as tolerated. Off-load heels with Pillow. APM/ERIK Mattress. (3) Pneumonia Assessment & Plan: Lungs: There is mild left lower lobe infiltrate consistent with pneumonia. Pleural space: Unremarkable. No pneumothorax. Heart: The heart size is at the upper limits of normal. Mediastinum: Unremarkable. Bones/joints: Unremarkable. IMPRESSION: There is mild left lower lobe infiltrate consistent with pneumonia. worsening on bipap now will monitor closely intubated now 03/21 wean vent Continue weaning. Will hopefully be extubated potentially. Gases noted. (4) COPD (chronic obstructive pulmonary disease) Assessment & Plan: On vent support weaning Potential extubation soon (5) Fever Eddie Perez Mar 27, 2020 18:38
--- NOTE | 2020-03-27 19:00 | NUR ---
HAND-OFF: Report given to SHARATH Xiong. Endorsed plan of care.
[2020-03-27] MEDS ORDERED: 1/2 NS 1000ml IV ONE (19:05)
--- NOTE | 2020-03-27 19:51 | NUR ---
NURSE NOTES: received report from truman pete pt orally intubated -vent o2 sat 98 % no acute resp distress open eyes to touch no movement upper and lower extremities tolerating tube feeding no residual
[2020-03-27] MEDS: Dyna-Hex 2% Top Sol 2oz TOPIC SCH (20:19)
--- NOTE | 2020-03-27 22:00 | NUR ---
NURSE NOTES: reposition and suction no acute resp distress noted
[2020-03-28] VITALS (26 sets, daily range): BP systolic 106–142; BP diastolic 56–81
--- NOTE | 2020-03-28 | NUR ---
NURSE NOTES: condition un change
--- NOTE | 2020-03-28 02:00 | NUR ---
NURSE NOTES: reposition and suction
[2020-03-28] MEDS: Albuterol 90mcg Inhaler 8gm INH SCH ×5 (03:18→23:30)
--- NOTE | 2020-03-28 04:00 | NUR ---
NURSE NOTES: complete bed bath oral care and back care done
[2020-03-28 05:22] LABS: ANION GAP 7 mmol/L (5-15); BLOOD UREA NITROGEN 8 mg/dL (7-18); CARBON DIOXIDE 29 MMOL/L (21-32); CHLORIDE 102 MMOL/L (98-107); CREATININE 0.6 MG/DL (0.55-1.30); POTASSIUM 4.3 MMOL/L (3.5-5.1); SODIUM 138 MMOL/L (136-145)
--- NOTE | 2020-03-28 06:00 | NUR ---
NURSE NOTES: asleep vs stable reposition and suction
--- NOTE | 2020-03-28 07:18 | NUR ---
HAND-OFF: Report given to demetria using sbar.
--- NOTE | 2020-03-28 07:19 | NUR ---
HAND-OFF: Report given to alvarado pete using sbar.
--- NOTE | 2020-03-28 07:30 | NUR ---
NURSE NOTES: Received report from SHARATH Xiong. Patient is observed in bed, asleep, arousable to voice and touch, able to follow simple commands such as nodding and blinking. No distress noted. Patient is orally intubated with ETT 7.0 at 23cm on the lip line with vent settings: AC 14, TV 500, FiO2 40%, and PEEP 5. planer mill grader shows SR with HR of 60. Patient has OGT in place, TF Jevity 1.2 infusing at 30ml/hr. PICC line noted on the left upper arm, intact, patent, and asymptomatic; 1/2 NS infusing at 50ml/hr. Patient has a Lainez catheter in place, draining yellow urine to urometer. Patient remains on P200 mattress at this time for skin alterations. Bed is locked and in lowest position, side rails up x3, and call light left within reach. HOB is elevated to avoid aspiration. Will continue to monitor and will continue plan of care.
--- NOTE | 2020-03-28 08:35 | NUR ---
NURSE NOTES: Start of weaning off of vent at this time.
--- NOTE | 2020-03-28 08:36 | NUR ---
RESPIRATORY NOTES: Weaning started at 0835. Placed patient on PS +8 PEEP +5 FIO2 40%. RR 28, VT 483, RSBI 81, HR 82, SATS 99%. No distress noted. Will continue to monitor patient.
[2020-03-28] MEDS: Midodrine 10mg tab NG SCH ×3 (09:00→17:04)
--- NOTE | 2020-03-28 09:00 | NUR ---
NURSE NOTES: Dr Tucker at bedside assessing pt. Updated him on pt's current condition. Informed him of veterinarian small animal's recommendation to increase tube feeding rate.
[2020-03-28] MEDS: Pantoprazole Inj IVP SCH (09:07)
[2020-03-28] MEDS: Ascorbic Acid 500mg tab NG SCH (09:07)
[2020-03-28] MEDS: Multivitamins W/Minerals 15 ML UDC NG SCH (09:07)
[2020-03-28] MEDS: Lactulose 20gm/30ml UDC NG SCH ×3 (09:07→17:04)
[2020-03-28] MEDS: Zinc Sulfate 220mg NG SCH (09:07)
[2020-03-28] MEDS: Heparin 5000 units/ml inj SUBQ SCH ×2 (09:14→20:25)
--- NOTE | 2020-03-28 09:16 | Critical Care Progress Note ---
Assessment/Plan Assessment/Plan IMPRESSION: 1. COPD 2. Hypercapnia and hypoxemia. 3. Pneumonia,care home acquired. COVID negative 4. Hypothyroidism. 5. History of allergies. 6. Severe protein-calorie malnutrition. 7. Mild leukocytosis. 8. acute respiratory failure 9. pulmonary congestion care noted IV antibiotics/ all reviewed respiratory care as is reviewed changes; monitor secretions- extubate when reduced and can tolerate Ventilatory support as is; weaning daily as tolerated monitor for CO2 retention and congestion maintain meds DVT prophylaxis; supportive care suction as needed; hope to avoid trach aspiration precautions position change and off load oxygen therapy as is hope to extubate soon monitor nutrition medications/laboratory data/nursing notes/ICU care reviewed in detail note reviewed and edited care discussed with RN and RT ICU time spent >40 minutes Critical Care - Subjective Interval Events: CXR worse still with secretions ICU care noted and reviewed ROS Limited/Unobtainable: Yes Condition: critical EKG Rhythm: Sinus Rhythm Residuals: minimal Tube Feeding Tolerated: yes I&O: Intake and Output 03/27/20 03/28/20 19:00 07:00 Intake Total 1085.0 ml 1030 ml Output Total 760 ml 590 ml Balance 325.0 ml 440 ml Free Water 100 ml IV Total 605.0 ml 600 ml Tube Feeding 360 ml 330 ml Other 120 ml Output Urine Total 760 ml 590 ml # Bowel Movements 1 Critical Care - Objective ET-Tube: 7.0 ET Position: 23 Last 24 Hour Vital Signs Date Time Temp Pulse Resp B/P (MAP) Pulse Ox O2 Delivery O2 Flow Rate FiO2 03/28/20 08:35 99 03/28/20 08:00 40 03/28/20 07:28 69 14 100 Mechanical Ventilator 40 68 14 40 40 03/28/20 07:00 60 14 112/69 (83) 100 03/28/20 06:00 65 14 107/61 (76) 100 03/28/20 05:00 60 14 123/72 (89) 99 03/28/20 04:00 98.6 59 16 113/81 (92) 99 03/28/20 04:00 40 03/28/20 04:00 Mechanical Ventilator 03/28/20 04:00 62 03/28/20 03:21 58 14 100 Mechanical Ventilator 40 60 14 40 03/28/20 03:00 60 14 123/74 (90) 99 03/28/20 02:00 70 15 115/67 (83) 98 03/28/20 01:00 62 15 106/56 (73) 98 03/28/20 00:00 Mechanical Ventilator 03/28/20 00:00 45 03/28/20 00:00 62 15 106/62 (77) 98 03/28/20 00:00 64 03/27/20 23:30 70 17 110/64 (79) 98 03/27/20 23:30 76 14 100 Mechanical Ventilator 40 78 15 40 03/27/20 22:00 67 21 126/70 (88) 98 03/27/20 21:00 58 14 107/59 (75) 98 03/27/20 20:00 40 03/27/20 20:00 60 03/27/20 20:00 59 14 103/63 (76) 99 03/27/20 20:00 Mechanical Ventilator 03/27/20 19:30 64 20 99 Mechanical Ventilator 40 65 17 40 03/27/20 19:00 57 14 102/60 (74) 98 03/27/20 18:00 57 17 117/68 (84) 96 03/27/20 17:31 62 18 45 03/27/20 17:25 98 03/27/20 17:00 70 22 147/82 (103) 100 03/27/20 16:00 Mechanical Ventilator 03/27/20 16:00 67 03/27/20 16:00 40 03/27/20 16:00 97.5 74 24 142/81 (101) 99 03/27/20 15:08 70 26 131/67 (88) 98 03/27/20 14:54 60 22 99 Mechanical Ventilator 40 64 25 40 40 03/27/20 14:28 108/57 03/27/20 14:00 62 23 108/57 (74) 98 03/27/20 13:00 60 22 110/64 (79) 99 03/27/20 12:00 Mechanical Ventilator 03/27/20 12:00 98.2 61 22 110/56 (74) 99 03/27/20 12:00 69 03/27/20 12:00 40 03/27/20 11:05 76 20 100 Mechanical Ventilator 40 70 21 40 40 03/27/20 11:00 71 23 115/58 (77) 99 03/27/20 10:00 66 18 136/66 (89) 98 Labs: Laboratory Tests Test 03/27/20 11:46 03/28/20 03:00 Arterial Blood pH 7.484 (7.350-7.450) Arterial Blood Partial Pressure CO2 38.9 mmHg (35.0-45.0) Arterial Blood Partial Pressure O2 92.9 mmHg (75.0-100.0) Arterial Blood HCO3 28.6 mmol/L (22.0-26.0) H Arterial Blood Oxygen Saturation 97.1 % (95-100) Arterial Blood Base Excess 4.9 (-2-2) H Keith Test Positive Sodium Level 138 MMOL/L (136-145) Potassium Level 4.3 MMOL/L (3.5-5.1) Chloride Level 102 MMOL/L (98-107) Carbon Dioxide Level 29 MMOL/L (21-32) Anion Gap 7 mmol/L (5-15) Blood Urea Nitrogen 8 mg/dL (7-18) Creatinine 0.6 MG/DL (0.55-1.30) Estimat Glomerular Filtration Rate > 60 mL/min (>60) Glucose Level 117 MG/DL (74-106) H Calcium Level 8.0 MG/DL (8.5-10.1) L Objective: GENERAL: An ill-appearing female. NAD on Vent NECK: Supple. No adenopathy. LUNGS: Coarse breath sounds. Moderate air entry. ETT in place; no rhonchi or wheeze CARDIAC: S1, S2. Regular rate and rhythm without murmur. ABDOMEN: Soft, nontender, nondistended. feeding tube EXTREMITIES: No cyanosis, clubbing, or edema. reduced LOC but arouseable resting on the vent reviewed and edited Micro: Microbiology Date/Time Source Procedure Growth Status 03/27/20 11:05 Sputum Gram Stain Pending Resulted 03/27/20 11:05 Sputum Culture - Preliminary Gram Negative Bacillus 1 Resulted Javier Blake MD Mar 28, 2020 09:16
--- NOTE | 2020-03-28 09:30 | NUR ---
NURSE NOTES: Dr Ledesma at bedside assessing pt. Updated him on pt's current condition. No new orders at this time.
--- NOTE | 2020-03-28 09:52 | General Progress Note ---
Assessment/Plan Problem List: (1) COPD (chronic obstructive pulmonary disease) ICD Codes: J44.9 - Chronic obstructive pulmonary disease, unspecified SNOMED: 72947329 Qualifiers: Qualified Codes: J44.9 - Chronic obstructive pulmonary disease, unspecified (2) Pneumonia ICD Codes: J18.9 - Pneumonia, unspecified organism SNOMED: 466191481 Qualifiers: Qualified Codes: J18.9 - Pneumonia, unspecified organism (3) Fever ICD Codes: R50.9 - Fever, unspecified SNOMED: 981111491 Status: stable, progressing Assessment/Plan: vent support wean per pulm iv abx repeat cultures- sputum and blood follow up labs ivf skin care turn q2 critical and guarded Subjective ROS Limited/Unobtainable: Yes Constitutional: Reports: malaise, weakness HEENT: Reports: no symptoms Cardiovascular: Reports: no symptoms Respiratory: Reports: shortness of breath, sputum Gastrointestinal/Abdominal: Reports: difficulty swallowing Genitourinary: Reports: no symptoms Neurologic/Psychiatric: Reports: emotional problems, pre-existing deficit Endocrine: Reports: no symptoms Hematologic/Lymphatic: Reports: anemia Allergies: Coded Allergies: PENICILLINS (Verified Allergy, Unknown, 03/11/20) All Systems: reviewed and negative except above Subjective remains intubated. off pressors. no fevers. calm. labs reviewed. tolerating feeds. currently weaning. no bradycardia Objective Last 24 Hour Vital Signs Date Time Temp Pulse Resp B/P (MAP) Pulse Ox O2 Delivery O2 Flow Rate FiO2 03/28/20 09:00 67 21 118/66 (83) 97 03/28/20 08:35 99 03/28/20 08:00 Mechanical Ventilator 03/28/20 08:00 40 03/28/20 08:00 98.9 60 14 120/63 (82) 99 03/28/20 07:28 69 14 100 Mechanical Ventilator 40 68 14 40 40 03/28/20 07:00 60 14 112/69 (83) 100 03/28/20 06:00 65 14 107/61 (76) 100 03/28/20 05:00 60 14 123/72 (89) 99 03/28/20 04:00 98.6 59 16 113/81 (92) 99 03/28/20 04:00 40 03/28/20 04:00 Mechanical Ventilator 03/28/20 04:00 62 03/28/20 03:21 58 14 100 Mechanical Ventilator 40 60 14 40 03/28/20 03:00 60 14 123/74 (90) 99 03/28/20 02:00 70 15 115/67 (83) 98 03/28/20 01:00 62 15 106/56 (73) 98 03/28/20 00:00 Mechanical Ventilator 03/28/20 00:00 45 03/28/20 00:00 62 15 106/62 (77) 98 03/28/20 00:00 64 03/27/20 23:30 70 17 110/64 (79) 98 03/27/20 23:30 76 14 100 Mechanical Ventilator 40 78 15 40 03/27/20 22:00 67 21 126/70 (88) 98 03/27/20 21:00 58 14 107/59 (75) 98 03/27/20 20:00 40 03/27/20 20:00 60 03/27/20 20:00 59 14 103/63 (76) 99 03/27/20 20:00 Mechanical Ventilator 03/27/20 19:30 64 20 99 Mechanical Ventilator 40 65 17 40 03/27/20 19:00 57 14 102/60 (74) 98 03/27/20 18:00 57 17 117/68 (84) 96 03/27/20 17:31 62 18 45 03/27/20 17:25 98 03/27/20 17:00 70 22 147/82 (103) 100 03/27/20 16:00 Mechanical Ventilator 03/27/20 16:00 67 03/27/20 16:00 40 03/27/20 16:00 97.5 74 24 142/81 (101) 99 03/27/20 15:08 70 26 131/67 (88) 98 03/27/20 14:54 60 22 99 Mechanical Ventilator 40 64 25 40 40 03/27/20 14:28 108/57 03/27/20 14:00 62 23 108/57 (74) 98 03/27/20 13:00 60 22 110/64 (79) 99 03/27/20 12:00 Mechanical Ventilator 03/27/20 12:00 98.2 61 22 110/56 (74) 99 03/27/20 12:00 69 03/27/20 12:00 40 03/27/20 11:05 76 20 100 Mechanical Ventilator 40 70 21 40 40 03/27/20 11:00 71 23 115/58 (77) 99 03/27/20 10:00 66 18 136/66 (89) 98 Intake and Output 03/27/20 03/28/20 19:00 07:00 Intake Total 1085.0 ml 1060 ml Output Total 760 ml 640 ml Balance 325.0 ml 420 ml Free Water 100 ml IV Total 605.0 ml 600 ml Tube Feeding 360 ml 360 ml Other 120 ml Output Urine Total 760 ml 640 ml # Bowel Movements 1 Laboratory Tests 03/27/20 11:46: Arterial Blood pH 7.484H, Arterial Blood Partial Pressure CO2 38.9, Arterial Blood Partial Pressure O2 92.9, Arterial Blood HCO3 28.6H, Arterial Blood Oxygen Saturation 97.1, Arterial Blood Base Excess 4.9H, Keith Test Positive 03/28/20 03:00: Sodium Level 138, Potassium Level 4.3, Chloride Level 102, Carbon Dioxide Level 29, Anion Gap 7, Blood Urea Nitrogen 8, Creatinine 0.6, Estimat Glomerular Filtration Rate > 60, Glucose Level 117H, Calcium Level 8.0L Height (Feet): 5 Height (Inches): 5.00 Weight (Pounds): 106 Objective General Appearance: WD/WN, lethargic. intubated Neck: non-tender Cardiovascular: normal rate, regular rhythm Respiratory/Chest: chest wall non-tender, lungs clear, normal breath sounds Abdomen: normal bowel sounds, non tender, soft, no organomegaly Edema: no edema noted Arm (L), no edema noted Arm (R), no edema noted Leg (L), no edema noted Leg (R), no edema noted Pedal (L), no edema noted Pedal (R), no edema noted Generalized Neurologic: alert Isaak Ledesma MD Mar 28, 2020 09:52
--- NOTE | 2020-03-28 10:34 | Infectious Diseases Prog Note ---
Assessment/Plan Assessment/Plan antibiotics : none A 1. gram negative pneumonia COVID 19 test negative x 2 2. respiratory failure 3. COPD 4. leucocytosis resolved 5. hypothyroidism 6. schizophrenia P 1. start meropenem 2, extubation planned 3. will follow up cultures Subjective ROS Limited/Unobtainable: Yes Allergies: Coded Allergies: PENICILLINS (Verified Allergy, Unknown, 03/11/20) Objective Vital Signs Last 24 Hour Vital Signs Date Time Temp Pulse Resp B/P (MAP) Pulse Ox O2 Delivery O2 Flow Rate FiO2 03/28/20 10:00 65 22 120/68 (85) 99 03/28/20 09:00 67 21 118/66 (83) 97 03/28/20 08:35 99 03/28/20 08:00 Mechanical Ventilator 03/28/20 08:00 57 03/28/20 08:00 40 03/28/20 08:00 98.9 60 14 120/63 (82) 99 03/28/20 07:28 69 14 100 Mechanical Ventilator 40 68 14 40 40 03/28/20 07:00 60 14 112/69 (83) 100 03/28/20 06:00 65 14 107/61 (76) 100 03/28/20 05:00 60 14 123/72 (89) 99 03/28/20 04:00 98.6 59 16 113/81 (92) 99 03/28/20 04:00 40 03/28/20 04:00 Mechanical Ventilator 03/28/20 04:00 62 03/28/20 03:21 58 14 100 Mechanical Ventilator 40 60 14 40 03/28/20 03:00 60 14 123/74 (90) 99 03/28/20 02:00 70 15 115/67 (83) 98 03/28/20 01:00 62 15 106/56 (73) 98 03/28/20 00:00 Mechanical Ventilator 03/28/20 00:00 45 03/28/20 00:00 62 15 106/62 (77) 98 03/28/20 00:00 64 03/27/20 23:30 70 17 110/64 (79) 98 03/27/20 23:30 76 14 100 Mechanical Ventilator 40 78 15 40 03/27/20 22:00 67 21 126/70 (88) 98 03/27/20 21:00 58 14 107/59 (75) 98 03/27/20 20:00 40 03/27/20 20:00 60 03/27/20 20:00 59 14 103/63 (76) 99 03/27/20 20:00 Mechanical Ventilator 03/27/20 19:30 64 20 99 Mechanical Ventilator 40 65 17 40 03/27/20 19:00 57 14 102/60 (74) 98 03/27/20 18:00 57 17 117/68 (84) 96 03/27/20 17:31 62 18 45 03/27/20 17:25 98 03/27/20 17:00 70 22 147/82 (103) 100 03/27/20 16:00 Mechanical Ventilator 03/27/20 16:00 67 03/27/20 16:00 40 03/27/20 16:00 97.5 74 24 142/81 (101) 99 03/27/20 15:08 70 26 131/67 (88) 98 03/27/20 14:54 60 22 99 Mechanical Ventilator 40 64 25 40 40 03/27/20 14:28 108/57 03/27/20 14:00 62 23 108/57 (74) 98 03/27/20 13:00 60 22 110/64 (79) 99 03/27/20 12:00 Mechanical Ventilator 03/27/20 12:00 98.2 61 22 110/56 (74) 99 03/27/20 12:00 69 03/27/20 12:00 40 03/27/20 11:05 76 20 100 Mechanical Ventilator 40 70 21 40 40 03/27/20 11:00 71 23 115/58 (77) 99 Height (Feet): 5 Height (Inches): 5.00 Weight (Pounds): 106 HEENT: other - intubated Respiratory/Chest: lungs clear Cardiovascular: normal rate, regular rhythm, no gallop/murmur Abdomen: soft, non tender Extremities: no edema, other - left arm PICC Microbiology Date/Time Source Procedure Growth Status 03/27/20 11:05 Sputum Gram Stain Pending Resulted 03/27/20 11:05 Sputum Culture - Preliminary Gram Negative Bacillus 1 Resulted Laboratory Tests Test 03/27/20 11:46 03/28/20 03:00 Arterial Blood pH 7.484 (7.350-7.450) Arterial Blood Partial Pressure CO2 38.9 mmHg (35.0-45.0) Arterial Blood Partial Pressure O2 92.9 mmHg (75.0-100.0) Arterial Blood HCO3 28.6 mmol/L (22.0-26.0) H Arterial Blood Oxygen Saturation 97.1 % (95-100) Arterial Blood Base Excess 4.9 (-2-2) H Keith Test Positive Sodium Level 138 MMOL/L (136-145) Potassium Level 4.3 MMOL/L (3.5-5.1) Chloride Level 102 MMOL/L (98-107) Carbon Dioxide Level 29 MMOL/L (21-32) Anion Gap 7 mmol/L (5-15) Blood Urea Nitrogen 8 mg/dL (7-18) Creatinine 0.6 MG/DL (0.55-1.30) Estimat Glomerular Filtration Rate > 60 mL/min (>60) Glucose Level 117 MG/DL (74-106) H Calcium Level 8.0 MG/DL (8.5-10.1) L Current Medications Medications (Trade) Dose Ordered Sig/Ranjeet Route PRN Reason Start Time Stop Time Status Last Admin Dose Admin Acetaminophen (Tylenol) 650 mg Q4H PRN NG Mild Pain (1-3)/Fever > 100.5 03/22/20 15:30 04/10/20 19:29 Albuterol Sulfate (Proventil MDI) 2 puff Q4HRT INH 03/18/20 15:00 06/13/20 02:59 03/28/20 08:39 Ascorbic Acid (Vitamin C) 500 mg DAILY NG 03/23/20 09:00 04/11/20 08:59 03/28/20 09:07 Atropine Sulfate (Atropine) 1 mg Q1H PRN IVP HR <40BPM 03/18/20 13:30 04/17/20 13:29 03/20/20 08:01 Chlorhexidine Gluconate (Mary-Hex 2%) 1 applic DAILY@2000 TOPIC 03/21/20 20:00 06/19/20 19:59 03/27/20 20:19 Heparin Sodium (Porcine) (Heparin 5000 units/ml) 5,000 units EVERY 12 HOURS SUBQ 03/18/20 21:00 04/25/20 20:59 03/28/20 09:14 Lactulose (Cephulac) 30 gm THREE TIMES A DAY NG 03/22/20 18:00 04/18/20 09:14 03/28/20 09:07 Levothyroxine Sodium (Synthroid) 50 mcg DAILY IV 03/19/20 09:00 04/17/20 13:14 03/28/20 09:07 Loratadine (Claritin 10mg) 10 mg DAILY ORAL 03/23/20 09:00 04/11/20 08:59 03/28/20 09:07 Magnesium Hydroxide (Mom) 30 ml HSPRN PRN NG Constipation 03/22/20 15:30 04/17/20 13:59 Midodrine (Pro-Amatine) 10 mg THREE TIMES A DAY NG 03/24/20 13:00 06/21/20 08:59 03/27/20 17:42 Multivitamins (Multivitamins W/ Minerals 15ml Liquid) 15 ml DAILY NG 03/23/20 09:00 04/11/20 08:59 03/28/20 09:07 Norepinephrine Bitartrate 250 ml @ 0 mls/hr Q24H IV 03/23/20 14:52 06/21/20 14:51 Pantoprazole (Protonix) 40 mg DAILY IVP 03/23/20 09:00 04/22/20 08:59 03/28/20 09:07 Sodium Chloride 1,000 ml @ 50 mls/hr Q20H IV 03/23/20 15:15 04/22/20 15:14 03/27/20 17:00 Zinc Sulfate (Zinc Sulfate) 220 mg DAILY NG 03/23/20 09:00 06/10/20 08:59 03/28/20 09:07 Eh Bailey MD Mar 28, 2020 10:34
--- NOTE | 2020-03-28 11:00 | NUR ---
NURSE NOTES: Pt continues to wean, tolerating well at this time.
[2020-03-28] MEDS: Meropenem 500 MG in NS 55 ML IVPB SCH ×2 (12:20→19:59)
[2020-03-28] MEDS: Norepinephrine 4mg/NS Premix 250 ML IV SCH (12:20)
--- NOTE | 2020-03-28 12:30 | NUR ---
NURSE NOTES: Pt placed back on vent AC mode after weaning since 834. Pt continues to have a large amount of thick secretions when suctioned endotracheally. No distress noted.
--- NOTE | 2020-03-28 13:09 | NUR ---
RD ASSESSMENT & RECOMMENDATIONS SEE CARE ACTIVITY FOR COMPLETE ASSESSMENT DAILY ESTIMATED NEEDS: Needs based on Wound, Critical care / 56kg 25-30 kcals/kg 0866-9299 total kcals 1.25-2 g protein/kg 70-112 g total protein 25-30 mL/kg 3088-1526 total fluid mLs NUTRITION DIAGNOSIS: * Swallowing difficulty R/T dysphagia as evidenced by GUEST SERVICE MANAGER w/ rec for NPO, now on NGT feeds. * Increased kcal/prot/micronutrients needs R/T wound healing as evidenced by pt admitted w/ multiple wounds including full thickness wound @ sacrum, TPI wound @ L Gluteal cheek, and non-Blanchable erythema @ BL heels. CURRENT TF:Jevity 1.2 @30ml/hr-> now increased to 55ml/hr ENTERAL NUTRITION RECOMMENDATIONS: Jevity 1.2 goal of 55ml/hr x24 hrs to provide 1320ml, 1584 kcal, 73g pro, 1065ml free H2O - Advance current TF of Jevity 1.2 as tolerated 10ml/hr q4-6 hrs to goal of 55ml/hr x24 hrs - flush per MD, HOB over 30 degrees Monitor BG and need for TF change to carb control formula. ADDITIONAL RECOMMENDATIONS: * Per SNF: HT=66" HU=657cxr (03/07/20) * Wound healing: continue MVI, Vit C, and ZnSO4 * VIA NGT-> add TONI BID for wound care TF recs as above * Monitor lytes, replete as needed -> Monitor BG, need for NISS w/ TF's
--- NOTE | 2020-03-28 14:06 | NUR ---
CASE MANAGEMENT:REVIEW 03/28/20 SI:COPD. PNA. RESPIRATORY FAILURE~ORALLY INTUBATED. SPUTUM CX GRAM NEGATIVE BACILLUS . 99.2 78 24 137/78 99% MECH VENT FIO2 @ 40 BG 117 CA+ 8.0 IS:IV MEROPENEM TID IV NS @ 50ML/HR IV PROTONIX QD MIDODRINE NGT TID VIT C NGT QD ZINC SULFATE NGT QD ALBUTEROL INH Q4HR HEPARIN SQ BID LACTULOSE NG TID IV MEROPENEM TID TUBE FEEDING \: ICU STATUS DCP:[facility] WHEN STABLE PLAN: WEANING TRAILS INCREASE SECRETION HOLD EXTUBATION - RE-EVAL IN AM SPUTUM CX IN PROCESS
--- NOTE | 2020-03-28 14:30 | NUR ---
NURSE NOTES: Patient observed in bed, asleep, no s/s of acute distress. Pt turned and repositioned for safety and comfort. Oral care done. TF running @ 45mL/hr and IV fluids infusing at the prescribed rate.
--- NOTE | 2020-03-28 15:12 | Surgery Progress Note ---
Surgery Progress Note Subjective Additional Comments Still with significant secretions not safe for extubation yet. Weaning well otherwise. Labs noted imaging reviewed. Objective Last 24 Hour Vital Signs Date Time Temp Pulse Resp B/P (MAP) Pulse Ox O2 Delivery O2 Flow Rate FiO2 03/28/20 14:00 71 21 126/74 (91) 99 03/28/20 13:00 65 15 118/66 (83) 97 03/28/20 12:30 40 03/28/20 12:20 137/78 03/28/20 12:00 99.2 78 24 137/78 (97) 99 03/28/20 12:00 Mechanical Ventilator 03/28/20 12:00 40 03/28/20 11:29 81 19 40 03/28/20 11:00 71 24 121/70 (87) 100 03/28/20 10:00 65 22 120/68 (85) 99 03/28/20 09:00 67 21 118/66 (83) 97 03/28/20 08:35 99 03/28/20 08:35 40 03/28/20 08:00 Mechanical Ventilator 03/28/20 08:00 57 03/28/20 08:00 40 03/28/20 08:00 98.9 60 14 120/63 (82) 99 03/28/20 07:28 69 14 100 Mechanical Ventilator 40 68 14 40 40 03/28/20 07:00 60 14 112/69 (83) 100 03/28/20 06:00 65 14 107/61 (76) 100 03/28/20 05:00 60 14 123/72 (89) 99 03/28/20 04:00 98.6 59 16 113/81 (92) 99 03/28/20 04:00 40 03/28/20 04:00 Mechanical Ventilator 03/28/20 04:00 62 03/28/20 03:21 58 14 100 Mechanical Ventilator 40 60 14 40 03/28/20 03:00 60 14 123/74 (90) 99 03/28/20 02:00 70 15 115/67 (83) 98 03/28/20 01:00 62 15 106/56 (73) 98 03/28/20 00:00 Mechanical Ventilator 03/28/20 00:00 45 03/28/20 00:00 62 15 106/62 (77) 98 03/28/20 00:00 64 03/27/20 23:30 70 17 110/64 (79) 98 03/27/20 23:30 76 14 100 Mechanical Ventilator 40 78 15 40 03/27/20 22:00 67 21 126/70 (88) 98 03/27/20 21:00 58 14 107/59 (75) 98 03/27/20 20:00 40 03/27/20 20:00 60 03/27/20 20:00 59 14 103/63 (76) 99 03/27/20 20:00 Mechanical Ventilator 03/27/20 19:30 64 20 99 Mechanical Ventilator 40 65 17 40 03/27/20 19:00 57 14 102/60 (74) 98 03/27/20 18:00 57 17 117/68 (84) 96 03/27/20 17:31 62 18 45 03/27/20 17:25 98 03/27/20 17:00 70 22 147/82 (103) 100 03/27/20 16:00 Mechanical Ventilator 03/27/20 16:00 67 03/27/20 16:00 40 03/27/20 16:00 97.5 74 24 142/81 (101) 99 I&O Intake and Output 03/27/20 03/28/20 19:00 07:00 Intake Total 1085.0 ml 1060 ml Output Total 760 ml 640 ml Balance 325.0 ml 420 ml Free Water 100 ml IV Total 605.0 ml 600 ml Tube Feeding 360 ml 360 ml Other 120 ml Output Urine Total 760 ml 640 ml # Bowel Movements 1 Dressing: other Wound: other Drains: other Cardiovascular: RSR Respiratory: decreased breath sounds Abdomen: soft, non-tender, present bowel sounds Extremities: no cyanosis Laboratory Tests Test 03/28/20 03:00 Sodium Level 138 MMOL/L (136-145) Potassium Level 4.3 MMOL/L (3.5-5.1) Chloride Level 102 MMOL/L (98-107) Carbon Dioxide Level 29 MMOL/L (21-32) Anion Gap 7 mmol/L (5-15) Blood Urea Nitrogen 8 mg/dL (7-18) Creatinine 0.6 MG/DL (0.55-1.30) Estimat Glomerular Filtration Rate > 60 mL/min (>60) Glucose Level 117 MG/DL (74-106) H Calcium Level 8.0 MG/DL (8.5-10.1) L Plan Problems: (1) Malnutrition Assessment & Plan: not eating enough TF started adv as tolerated bowel regimen DDAILY ESTIMATED NEEDS: Needs based on Wound, pulmonary / 56kg 25-35 kcals/kg 3950-5956 total kcals 1.25-1.8 g protein/kg 70-100 g total protein 25-30 mL/kg 1196-7100 total fluid mLs NUTRITION DIAGNOSIS: * Swallowing difficulty R/T dysphagia as evidenced by KNIT GOODS WASHER w/ rec for NPO, now on NGT feeds. * Increased kcal/prot/micronutrients needs R/T wound healing as evidenced by pt admitted w/ multiple wounds including full thickness wound @ sacrum, TPI wound @ L Gluteal cheek, and non-Blanchable erythema @ BL heels. CURRENT TF:Jevity 1.2 @30ml/hr ENTERAL NUTRITION RECOMMENDATIONS: JEVITY 1.2 goal of 55ml/hr x24 hrs to provide 1320ml, 1584 kcal, 73g pro, 1065ml free H2O - rec to INCREASE current TF as tolerated to goal of 55ml/hr to better meet est needs. - flush per CHRISTINA JONES over 30 degrees ADDITIONAL RECOMMENDATIONS: * Per SNF: HT=66" GI=105crp (03/07/20) * Wound healing: continue MVI, Vit C, and ZnSO4 * VIA NGT-> add TONI BID for wound care TF recs as above * Monitor lytes, replete as needed THIS 60 Y.O.M. WAS ADMITTED WITH ACUTE ISSUES - FEVER, HYPOXIC WITH LOW 02 SATS ON NON-REBREATHER, RESP RATE 18 BPM INITIALLY PER MEDICAL RECORD. PER RN, THE PATIENT HAD A RAPID RESPOSE THIS MORNING (DESAT TO 90S AND RAPID RESP RATE). H/O COPD, CARDIAC DZ, HYPOTHYROIDISM, HTN, ALLERGIC RHINITIS, SCHIZOPHRENIA (ON OLANZAPINE AT SNF), BASELINE NONVERBAL. PER POLST FULL TX BUT NO INFORMATION REGARDING TUBE FEEDING PREFERENCES. AT SNF ON A REGULAR DIET TEXTURE AND THIN LIQUIDS WITH PROSTAT SF DRINK WITH MEALS. NOW ON A REGULAR TEXTURE DIET AND THIN LIQUIDS BUT DID NOT TAKE ANY PO. PER LAURIE EARLY, THE PT UNABLE TO TAKE LARGE PILLS BUT APPEARED TO TOLERATE CRUSHED MEDS WITH APPLESAUCE W/O OVERT ASPIRATION. PATIENT SEEN WITH FUNMI HEATH. PER RT RESP RATE 22 BPM AND NOT ABLE TO ongoing unintelligible confabulations. Patient did request a sandwich, however, not appropriate for regular texture at this time. VITALS ON 2 L NASAL CANNULA: HR: 73; RR: 20; SP02: 95% Patient's oral hygiene is improving, ongoing poor speech intelligibility which appears to be more due to poor articulation precision/oral motor coordination versus 2/2 dry mouth. CXR on 03/14/20: Findings: Interim considerable improvement of previously demonstrated left lower lobe infiltrate. There is a residual disease in the retrocardiac region as well as generalized reticular interstitial opacities throughout the left mid and lower lung. There is questionably a 3 cm spiculated opacity projected over the apex. Minimal right mid and lower lung reticular opacities are also demonstrated. There is some right midlung atelectasis versus thickening of the minor fissure. The heart size is normal. The pleural spaces are clear Impression: Considerable improvement the persistence of previously demonstrated left mid and lower lung infiltrates, since prior study of 03/11/2020. KNIT GOODS WASHER plans to continue to f/u and monitor Patients readiness for PO trials for diet texture upgrade. RN aware of recommendations, plan, and aspiration precautions sign posted above Patients HOB. RECOMMENDATIONS: 1. Continue Moist Puree with [place] Thick Liquids Diet via 1 to 1 careful handfeeding while implementing posted aspiration precautions - RD recommendations appreciated for diet texture/type 2. Patient requires oral hygiene BID + lip moisturizer. (2) Decubitus skin ulcer Assessment & Plan: Pt presented on admission with multiple pressure injuries. Full thickness Pressure injury Sacrococcygeal area. (L)4cm x (W)2.5cm. Base of wound is fatou with scattered slough ,which was easily removed with gentle friction. Wound is now fatou with 25% soft necrosis at distal base of wound. Small amt sanguineous exudate noted.No odor noted. Periwound erythematous and denuded. Two additional Pressure Injuries noted to R gluteal cheek.(Proximal) Base of wound is purple and indurated(L)3cm x (W)1.5cm. Surrounding erythematous and denuded skin (Distal) R gluteus(L)1.4cm x (W)0.6cm. Base of wound is purple, indurated with surrounding erythematous and denuded skin. DTPI L Gluteal cheek (L)1.5cm x (W)1.3cm. Base of wound is indurated, purple with surrounding non-blanching erythema. Additional scattered areas that are maroon in colour noted to L gluteal cheek. Lateral L Heel boggy with non-blanching erythema with delineated margins. (L) 4cm x (W)4.5cm. Lateral R Heel Boggy with non-Blanchable erythema with delineated margins(L) 2.5cm x (W)2.5cm. Tx.Plan: Cleanse Sacrococcygeal area with saline. Apply TheraHoney , Apply Moisture Barrier Paste to Sacrum, R and L Buttocks. Cover entire Area with Optifoam drsgs. Change every 3 days and prn. Apply Moisture Barrier Paste to R and L Buttocks . Cover with Optifoam drsgs. Changee very 3 days and prn. Apply Cavilon Skin Barrier to R and L Trochanteric areas. Cover with Optifoam drsg. Change every 7 days and prn. Apply Cavilon Skin Barrier to R and L Heels. Cover each heel with Optifoam drsg. Change every 7 days and prn. Reposition at least every 2hours or as tolerated. Off-load heels with Pillow. APM/ERIK Mattress. (3) Pneumonia Assessment & Plan: Lungs: There is mild left lower lobe infiltrate consistent with pneumonia. Pleural space: Unremarkable. No pneumothorax. Heart: The heart size is at the upper limits of normal. Mediastinum: Unremarkable. Bones/joints: Unremarkable. IMPRESSION: There is mild left lower lobe infiltrate consistent with pneumonia. worsening on bipap now will monitor closely intubated now 03/21 wean vent Continue weaning. Will hopefully be extubated potentially. Gases noted. (4) COPD (chronic obstructive pulmonary disease) Assessment & Plan: On vent support weaning Potential extubation soon (5) Fever Eddie Perez Mar 28, 2020 15:12
--- NOTE | 2020-03-28 15:36 | NUR ---
*-* INSURANCE *-* UPDATED CLINICALS AND REVIEWS HAVE BEEN FAXED TO: [facility] Ref# [id number] F: [phone]
--- NOTE | 2020-03-28 16:00 | NUR ---
NURSE NOTES: Pt suctioned, orally and endotracheally, as patient has large amount of secretions. Pt tolerating TF, will increase to 55mL/hr, which is goal.
--- NOTE | 2020-03-28 18:00 | NUR ---
NURSE NOTES: Pt fully cleaned and linens changed after having a large loose yellow/brown BM. Pt turned and repositioned for comfort. Oral care done. No distress noted at this time. Pt appears comfortable.
[2020-03-28] MEDS ORDERED: 1/2 NS 1000ml IV ONE (18:48)
[2020-03-28] MEDS ORDERED: NS 275ml ONE (18:48)
[2020-03-28] MEDS ORDERED: Tubing IV Secondary IV ONE (18:48)
[2020-03-28] MEDS ORDERED: Sterile Water Irrig 1000ml IRRIG ONE (18:48)
--- NOTE | 2020-03-28 19:13 | NUR ---
HAND-OFF: Report given to SHARATH Hammond.
--- NOTE | 2020-03-28 19:14 | NUR ---
NURSE NOTES: Patient received from SHARATH Hartman. patient asleep arousable to name but nonverbal with 7.0 ETT @ 23cm lipline on ventilator AC 14 TV 500 FiO2 40% PEEP 5. BP 123/62 HR59 sinus arminda on monitor and afebrile. left upper arm PICC running 1/2NS @50ml/hr clean and asymptomatic. OGT running Jevity 1.2 @ 55ml/hr. Lainez catheter draining yellow urine. Sacral stage IV and right heel DTPI dressing clean and intact. will continue plan of care.
[2020-03-28] MEDS: Dyna-Hex 2% Top Sol 2oz TOPIC SCH (19:59)
--- NOTE | 2020-03-28 21:26 | General Progress Note ---
Assessment/Plan Status: stable, progressing Assessment/Plan: Assessment - Resp failure - weaning - dysphagia, NGT dependent - COPD - Anemia - leukocytosis - improved - hypothyroid Recommendations - pulmonary f/u - NGT feeds - elevate HOB - follow labs and exam - PEG placement once stabilized Subjective Allergies: Coded Allergies: PENICILLINS (Verified Allergy, Unknown, 03/11/20) Subjective Above noted seen in ICU on vent tolerating NGT feeds loose BM Objective Last 24 Hour Vital Signs Date Time Temp Pulse Resp B/P (MAP) Pulse Ox O2 Delivery O2 Flow Rate FiO2 03/28/20 20:00 40 03/28/20 20:00 55 03/28/20 20:00 98.2 66 18 142/76 (98) 99 03/28/20 20:00 Mechanical Ventilator 03/28/20 19:50 72 18 35 03/28/20 19:00 64 14 126/74 (91) 99 03/28/20 18:00 62 14 115/66 (82) 98 03/28/20 17:30 69 15 127/72 (90) 98 03/28/20 17:00 64 14 120/66 (84) 98 03/28/20 16:30 62 14 106/65 (79) 99 03/28/20 16:00 98.5 63 17 125/74 (91) 99 03/28/20 16:00 Mechanical Ventilator 03/28/20 16:00 65 03/28/20 15:21 59 14 40 03/28/20 15:00 70 14 115/67 (83) 100 03/28/20 14:00 71 21 126/74 (91) 99 03/28/20 13:00 65 15 118/66 (83) 97 03/28/20 12:30 40 03/28/20 12:20 137/78 03/28/20 12:00 77 03/28/20 12:00 99.2 78 24 137/78 (97) 99 03/28/20 12:00 Mechanical Ventilator 03/28/20 12:00 40 03/28/20 11:29 81 19 40 03/28/20 11:00 71 24 121/70 (87) 100 03/28/20 10:00 65 22 120/68 (85) 99 03/28/20 09:00 67 21 118/66 (83) 97 03/28/20 08:35 99 03/28/20 08:35 40 03/28/20 08:00 Mechanical Ventilator 03/28/20 08:00 57 03/28/20 08:00 40 03/28/20 08:00 98.9 60 14 120/63 (82) 99 03/28/20 07:28 69 14 100 Mechanical Ventilator 40 68 14 40 40 03/28/20 07:00 60 14 112/69 (83) 100 03/28/20 06:00 65 14 107/61 (76) 100 03/28/20 05:00 60 14 123/72 (89) 99 03/28/20 04:00 98.6 59 16 113/81 (92) 99 03/28/20 04:00 40 03/28/20 04:00 Mechanical Ventilator 03/28/20 04:00 62 03/28/20 03:21 58 14 100 Mechanical Ventilator 40 60 14 40 03/28/20 03:00 60 14 123/74 (90) 99 03/28/20 02:00 70 15 115/67 (83) 98 03/28/20 01:00 62 15 106/56 (73) 98 03/28/20 00:00 Mechanical Ventilator 03/28/20 00:00 45 03/28/20 00:00 62 15 106/62 (77) 98 03/28/20 00:00 64 03/27/20 23:30 70 17 110/64 (79) 98 03/27/20 23:30 76 14 100 Mechanical Ventilator 40 78 15 40 03/27/20 22:00 67 21 126/70 (88) 98 Intake and Output 03/27/20 03/28/20 19:00 07:00 Intake Total 1085.0 ml 1060 ml Output Total 760 ml 640 ml Balance 325.0 ml 420 ml Free Water 100 ml IV Total 605.0 ml 600 ml Tube Feeding 360 ml 360 ml Other 120 ml Output Urine Total 760 ml 640 ml # Bowel Movements 1 Laboratory Tests 03/28/20 03:00: Sodium Level 138, Potassium Level 4.3, Chloride Level 102, Carbon Dioxide Level 29, Anion Gap 7, Blood Urea Nitrogen 8, Creatinine 0.6, Estimat Glomerular Filtration Rate > 60, Glucose Level 117H, Calcium Level 8.0L Height (Feet): 5 Height (Inches): 5.00 Weight (Pounds): 106 Objective Thin WW NCAT (+) ETT supple coarse BS RR abd soft NT ND no edema Douglas Tucker MD Mar 28, 2020 21:26
--- NOTE | 2020-03-28 22:00 | NUR ---
NURSE NOTES: patient asleep arousable to name but nonverbal with 7.0 ETT @ 23cm lipline on ventilator AC 14 TV 500 FiO2 40% PEEP 5. BP 123/69BM30ogyti arminda on monitor. left upper arm PICC running 1/2NS @50ml/hr clean and asymptomatic. OGT running Jevity @ 55ml/hr. cabral catheter draining yellow urine. patient repositioned and oral care provided. will continue to monitor.
[2020-03-29] VITALS (24 sets, daily range): BP systolic 111–163; BP diastolic 58–109
--- NOTE | 2020-03-29 | NUR ---
NURSE NOTES: patient asleep arousable to name on ventilator AC 14 TV 500 FiO2 40% PEEP 5. BP 123/67 HR57 sinus arminda on monitor. left upper arm PICC running 1/2NS @50ml/hr clean and asymptomatic. OGT running Jevity @ 55ml/hr. cabral catheter draining yellow urine. patient repositioned and oral care provided. will continue to monitor.
--- NOTE | 2020-03-29 02:00 | NUR ---
NURSE NOTES: patient asleep arousable to name but nonverbal with 7.0 ETT @ 23cm lipline on ventilator AC 14 TV 500 FiO2 40% PEEP 5. BP 117/62 HR 57 sinus arminda on monitor. left upper arm PICC running 1/2NS @50ml/hr clean and asymptomatic. OGT running Jevity @ 55ml/hr. Lainez catheter draining yellow urine. patient given CHG bath repositioned and oral care provided. will continue to monitor.
[2020-03-29] MEDS: Albuterol 90mcg Inhaler 8gm INH SCH ×6 (03:01→23:42)
[2020-03-29] MEDS: Meropenem 500 MG in NS 55 ML IVPB SCH (03:19)
--- NOTE | 2020-03-29 04:00 | NUR ---
NURSE NOTES: patient asleep, drowsy, arousable to light shaking but nonverbal on ventilator AC 14 TV 500 FiO2 35% PEEP 5. BP 112/60 HR 53. left upper arm PICC running 1/2NS @50ml/hr clean and asymptomatic, labs drawn. OGT running Jevity @ 55ml/hr. cabral catheter draining yellow urine. patient repositioned and oral care provided. will continue to monitor.
[2020-03-29 04:58] LABS: BASOPHILS % (AUTO) 0.9 % (0.0-2.0); EOSINOPHILS % (AUTO) 0.3 % (0.0-3.0); HEMATOCRIT 29.9 % (37.0-47.0); HEMOGLOBIN 9.7 G/DL (12.0-16.0); LYMPHOCYTES % (AUTO) 15.4 % (20.0-45.0); MEAN CORPUSCULAR VOLUME 96 FL (80-99); MONOCYTES % (AUTO) 5.7 % (1.0-10.0); NEUTROPHILS % (AUTO) 77.7 % (45.0-75.0); PLATELET COUNT 370 K/UL (150-450); RED BLOOD COUNT 3.12 M/UL (4.20-5.40); RED CELL DISTRIBUTION WIDTH 13.4 % (11.6-14.8); WHITE BLOOD COUNT 7.4 K/UL (4.8-10.8)
[2020-03-29 05:24] LABS: ALANINE AMINOTRANSFERASE 16 U/L (12-78); ALBUMIN 1.7 G/DL (3.4-5.0); ALBUMIN/GLOBULIN RATIO 0.4 (1.0-2.7); ALKALINE PHOSPHATASE 79 U/L (46-116); ANION GAP 6 mmol/L (5-15); ASPARTATE AMINO TRANSFERASE 15 U/L (15-37); BILIRUBIN,TOTAL 0.2 MG/DL (0.2-1.0); BLOOD UREA NITROGEN 10 mg/dL (7-18); CALCIUM 8.1 MG/DL (8.5-10.1); CARBON DIOXIDE 30 MMOL/L (21-32); CHLORIDE 99 MMOL/L (98-107); CREATININE 0.6 MG/DL (0.55-1.30); POTASSIUM 3.9 MMOL/L (3.5-5.1); SODIUM 135 MMOL/L (136-145)
--- NOTE | 2020-03-29 06:00 | NUR ---
NURSE NOTES: patient asleep arousable to name but nonverbal with 7.0 ETT @ 23cm lipline on ventilator AC 14 TV 500 FiO2 35% PEEP 5. BP 111/93 HR 70 NSR on monitor and afebrile. left upper arm PICC running 1/2NS @50ml/hr clean and asymptomatic. OGT running Jevity @ 55ml/hr. cabral catheter draining yellow urine. Sacral stage IV and right heel DTPI dressing clean and intact. patient repositioned and oral care provided. will continue to monitor.
--- NOTE | 2020-03-29 07:09 | NUR ---
HAND-OFF: Report given to SHARATH Lundberg. endorsed plan of care.
--- NOTE | 2020-03-29 07:22 | NUR ---
NURSE NOTES: LATE ENTRY: RECEIVED REPORT FROM PETRA Baez PT IN BED, DROWSY, FLAT EFFECT. ETT 7.0, 23 CM AT LIP. VENT SETTINGS AC 14, VT 500, FI02 35%, PEEP 5. SECRETIONS SMALL, WHITE THIN. TACHYPNEIC. ABDOMEN ROUND. BOWEL SOUNDS NOTED IN ALL FOUR QUADRANTS. RECTAL TUBE, LOOSE BROWN STOOL. AZAR, DRAINING YELLOW URINE. BILATERAL RADIAL AND PEDAL PULSES WEAK. SKIN- SEE ASSESSMENT. IV ACCESS YUMIKO PICC. PATENT,DRESSING DRY AND INTACT. RUNNING 1/2 NS AT 50ML/HR. PT AFEBRILE. PT ON P200 AIR MATTRESS. CONTACT PRECAUTIONS IN PLACE. CALL LIGHT IN REACH. BED LOCKED, IN LOW POSITION, SIDE RAILS UP X2. BED ALARM ON. INFORMED OF PLAN OF CARE, WEANING TODAY. WILL CONTINUE TO MONITOR PT. Addendum: 03/30/20 at 1520 by Tamika Pascual RN NO RECTAL TUBE FOR THIS PT.
--- NOTE | 2020-03-29 07:49 | NUR ---
NURSE NOTES: MD. ROBLEDO HERE TO SEE PT. WAS INFORMED OF [id number]. PT RECEIVING 1/2 NS AT 50ML/HR. NO WEANING OF PT AT THIS TIME. NO NEW ORDERS.
[2020-03-29] MEDS: Midodrine 10mg tab NG SCH ×3 (08:19→18:21)
[2020-03-29] MEDS: Zinc Sulfate 220mg NG SCH (08:19)
[2020-03-29] MEDS: Ascorbic Acid 500mg tab NG SCH (08:19)
[2020-03-29] MEDS: Multivitamins W/Minerals 15 ML UDC NG SCH (08:20)
[2020-03-29] MEDS: Pantoprazole Inj IVP SCH (08:20)
[2020-03-29] MEDS: Lactulose 20gm/30ml UDC NG SCH ×3 (08:20→18:22)
[2020-03-29] MEDS: Heparin 5000 units/ml inj SUBQ SCH ×2 (08:22→20:27)
--- NOTE | 2020-03-29 10:21 | Infectious Diseases Prog Note ---
Assessment/Plan Assessment/Plan A: 1. Klebsiella Pneumonia, COVID-19 test is negative x2. 2. Hypothyroidism. 3. COPD. 4. Schizophrenia. 5. Leukocytosis, improving. 6. 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 Discontinue Meropenem 2. Start on Levaquin 3. Case was d/w RN Subjective ROS Limited/Unobtainable: Yes Constitutional: Denies: fever Allergies: Coded Allergies: PENICILLINS (Verified Allergy, Unknown, 03/11/20) Objective Vital Signs Last 24 Hour Vital Signs Date Time Temp Pulse Resp B/P (MAP) Pulse Ox O2 Delivery O2 Flow Rate FiO2 03/29/20 08:01 65 21 35 03/29/20 08:00 65 03/29/20 08:00 35 03/29/20 08:00 98.1 64 20 118/76 (90) 100 03/29/20 07:56 58 14 100 Mechanical Ventilator 35 71 21 35 03/29/20 07:00 60 15 121/68 (85) 99 03/29/20 06:30 63 15 03/29/20 06:00 70 21 111/93 (99) 99 03/29/20 05:00 54 14 113/62 (79) 100 03/29/20 04:00 Mechanical Ventilator 03/29/20 04:00 35 03/29/20 04:00 98.1 53 14 112/60 (77) 98 03/29/20 04:00 52 03/29/20 03:01 52 15 97 Mechanical Ventilator 35 53 15 35 03/29/20 03:00 51 15 140/75 (96) 96 03/29/20 02:00 57 14 117/62 (80) 100 03/29/20 01:00 59 15 148/69 (95) 98 03/29/20 00:00 98.5 58 14 123/67 (85) 100 03/29/20 00:00 57 03/29/20 00:00 Mechanical Ventilator 03/28/20 23:30 70 17 100 Mechanical Ventilator 35 60 14 35 03/28/20 23:00 57 14 114/65 (81) 99 03/28/20 22:00 57 14 123/61 (81) 97 03/28/20 21:00 52 15 129/67 (87) 96 03/28/20 20:00 35 03/28/20 20:00 55 03/28/20 20:00 98.2 66 18 142/76 (98) 99 03/28/20 20:00 Mechanical Ventilator 03/28/20 19:50 72 18 35 03/28/20 19:00 64 14 126/74 (91) 99 03/28/20 18:00 62 14 115/66 (82) 98 03/28/20 17:30 69 15 127/72 (90) 98 03/28/20 17:00 64 14 120/66 (84) 98 03/28/20 16:30 62 14 106/65 (79) 99 03/28/20 16:00 98.5 63 17 125/74 (91) 99 03/28/20 16:00 Mechanical Ventilator 03/28/20 16:00 65 03/28/20 15:21 59 14 40 03/28/20 15:00 70 14 115/67 (83) 100 03/28/20 14:00 71 21 126/74 (91) 99 03/28/20 13:00 65 15 118/66 (83) 97 03/28/20 12:30 40 03/28/20 12:20 137/78 03/28/20 12:00 77 03/28/20 12:00 99.2 78 24 137/78 (97) 99 03/28/20 12:00 Mechanical Ventilator 03/28/20 12:00 40 03/28/20 11:29 81 19 40 03/28/20 11:00 71 24 121/70 (87) 100 Height (Feet): 5 Height (Inches): 5.00 Weight (Pounds): 145 HEENT: other - orally intubated Respiratory/Chest: lungs clear, other - on ventilator Cardiovascular: normal rate, other - left arm PICC lie Abdomen: soft, non tender, other - orogastric tube Extremities: no edema Neurologic/Psychiatric: unresponsiveness Microbiology Date/Time Source Procedure Growth Status 03/27/20 11:05 Sputum Gram Stain - Final Complete 03/27/20 11:05 Sputum Culture - Final Klebsiella Pneumoniae Complete Laboratory Tests Test 03/29/20 04:00 White Blood Count 7.4 K/UL (4.8-10.8) Red Blood Count 3.12 M/UL (4.20-5.40) L Hemoglobin 9.7 G/DL (12.0-16.0) L Hematocrit 29.9 % (37.0-47.0) L Mean Corpuscular Volume 96 FL (80-99) Mean Corpuscular Hemoglobin 31.0 PG (27.0-31.0) Mean Corpuscular Hemoglobin Concent 32.4 G/DL (32.0-36.0) Red Cell Distribution Width 13.4 % (11.6-14.8) Platelet Count 370 K/UL (150-450) Mean Platelet Volume 8.0 FL (6.5-10.1) Neutrophils (%) (Auto) 77.7 % (45.0-75.0) H Lymphocytes (%) (Auto) 15.4 % (20.0-45.0) L Monocytes (%) (Auto) 5.7 % (1.0-10.0) Eosinophils (%) (Auto) 0.3 % (0.0-3.0) Basophils (%) (Auto) 0.9 % (0.0-2.0) Sodium Level 135 MMOL/L (136-145) L Potassium Level 3.9 MMOL/L (3.5-5.1) Chloride Level 99 MMOL/L (98-107) Carbon Dioxide Level 30 MMOL/L (21-32) Anion Gap 6 mmol/L (5-15) Blood Urea Nitrogen 10 mg/dL (7-18) Creatinine 0.6 MG/DL (0.55-1.30) Estimat Glomerular Filtration Rate > 60 mL/min (>60) Glucose Level 124 MG/DL (74-106) H Calcium Level 8.1 MG/DL (8.5-10.1) L Total Bilirubin 0.2 MG/DL (0.2-1.0) Aspartate Amino Transf (AST/SGOT) 15 U/L (15-37) Alanine Aminotransferase (ALT/SGPT) 16 U/L (12-78) Alkaline Phosphatase 79 U/L (46-116) Total Protein 6.2 G/DL (6.4-8.2) L Albumin 1.7 G/DL (3.4-5.0) L Globulin 4.5 g/dL Albumin/Globulin Ratio 0.4 (1.0-2.7) L Current Medications Medications (Trade) Dose Ordered Sig/Ranjeet Route PRN Reason Start Time Stop Time Status Last Admin Dose Admin Acetaminophen (Tylenol) 650 mg Q4H PRN NG Mild Pain (1-3)/Fever > 100.5 03/22/20 15:30 04/10/20 19:29 Albuterol Sulfate (Proventil MDI) 2 puff Q4HRT INH 03/18/20 15:00 06/13/20 02:59 03/29/20 07:56 Ascorbic Acid (Vitamin C) 500 mg DAILY NG 03/23/20 09:00 04/11/20 08:59 03/29/20 08:19 Atropine Sulfate (Atropine) 1 mg Q1H PRN IVP HR <40BPM 03/18/20 13:30 04/17/20 13:29 03/20/20 08:01 Chlorhexidine Gluconate (Mary-Hex 2%) 1 applic DAILY@2000 TOPIC 03/21/20 20:00 06/19/20 19:59 03/28/20 19:59 Heparin Sodium (Porcine) (Heparin 5000 units/ml) 5,000 units EVERY 12 HOURS SUBQ 03/18/20 21:00 04/25/20 20:59 03/29/20 08:22 Lactulose (Cephulac) 30 gm THREE TIMES A DAY NG 03/22/20 18:00 04/18/20 09:14 03/29/20 08:20 Levothyroxine Sodium (Synthroid) 50 mcg DAILY IV 03/19/20 09:00 04/17/20 13:14 03/29/20 08:20 Loratadine (Claritin 10mg) 10 mg DAILY ORAL 03/23/20 09:00 04/11/20 08:59 03/29/20 08:19 Magnesium Hydroxide (Mom) 30 ml HSPRN PRN NG Constipation 03/22/20 15:30 04/17/20 13:59 Meropenem 500 mg/ Sodium Chloride 55 ml @ 110 mls/hr Q8H IVPB 03/28/20 12:00 04/02/20 11:59 03/29/20 03:19 Midodrine (Pro-Amatine) 10 mg THREE TIMES A DAY NG 03/24/20 13:00 06/21/20 08:59 03/29/20 08:19 Multivitamins (Multivitamins W/ Minerals 15ml Liquid) 15 ml DAILY NG 03/23/20 09:00 04/11/20 08:59 03/29/20 08:20 Norepinephrine Bitartrate 250 ml @ 0 mls/hr Q24H IV 03/23/20 14:52 06/21/20 14:51 Pantoprazole (Protonix) 40 mg DAILY IVP 03/23/20 09:00 04/22/20 08:59 03/29/20 08:20 Sodium Chloride 1,000 ml @ 50 mls/hr Q20H IV 03/23/20 15:15 04/22/20 15:14 03/29/20 05:01 Zinc Sulfate (Zinc Sulfate) 220 mg DAILY NG 03/23/20 09:00 06/10/20 08:59 03/29/20 08:19 Domingo Polo MD Mar 29, 2020 10:21
--- NOTE | 2020-03-29 10:29 | Critical Care Progress Note ---
Assessment/Plan Assessment/Plan IMPRESSION: 1. COPD 2. Hypercapnia and hypoxemia. 3. Pneumonia,intermediate 4. Hypothyroidism. 5. History of allergies. 6. Severe protein-calorie malnutrition. 7. Mild leukocytosis. 8. acute respiratory failure 9. pulmonary congestion care noted IV antibiotics/ all reviewed respiratory care as is reviewed changes; monitor secretions- extubate when reduced Ventilatory support as is; weaning daily monitor for CO2 retention and congestion maintain meds DVT prophylaxis; supportive care suction as needed; hope to avoid trach but may need airway aspiration precautions position change and off load oxygen therapy as is hope to extubate soon monitor nutrition medications/laboratory data/nursing notes/ICU care reviewed in detail note reviewed and edited care discussed with RN and RT ICU time spent >40 minutes Critical Care - Subjective Interval Events: care noted and reviewed on vent still with reduced LOC weaning overall ROS Limited/Unobtainable: Yes Condition: critical EKG Rhythm: Sinus Rhythm Residuals: minimal Tube Feeding Tolerated: yes I&O: Intake and Output 03/28/20 03/29/20 19:00 07:00 Intake Total 1533 ml 1570 ml Output Total 870 ml 680 ml Balance 663 ml 890 ml IV Total 638 ml 710 ml Tube Feeding 555 ml 660 ml Other 340 ml 200 ml Output Urine Total 870 ml 680 ml # Bowel Movements 2 Critical Care - Objective ET-Tube: 7.0 ET Position: 23 Last 24 Hour Vital Signs Date Time Temp Pulse Resp B/P (MAP) Pulse Ox O2 Delivery O2 Flow Rate FiO2 03/29/20 08:01 65 21 35 03/29/20 08:00 65 03/29/20 08:00 35 03/29/20 08:00 Mechanical Ventilator 03/29/20 08:00 98.1 64 20 118/76 (90) 100 03/29/20 07:56 58 14 100 Mechanical Ventilator 35 71 21 35 03/29/20 07:00 60 15 121/68 (85) 99 03/29/20 06:30 63 15 03/29/20 06:00 70 21 111/93 (99) 99 03/29/20 05:00 54 14 113/62 (79) 100 03/29/20 04:00 Mechanical Ventilator 03/29/20 04:00 35 03/29/20 04:00 98.1 53 14 112/60 (77) 98 6/25/20 04:00 52 03/29/20 03:01 52 15 97 Mechanical Ventilator 35 53 15 35 03/29/20 03:00 51 15 140/75 (96) 96 03/29/20 02:00 57 14 117/62 (80) 100 03/29/20 01:00 59 15 148/69 (95) 98 03/29/20 00:00 98.5 58 14 123/67 (85) 100 03/29/20 00:00 57 03/29/20 00:00 Mechanical Ventilator 03/28/20 23:30 70 17 100 Mechanical Ventilator 35 60 14 35 03/28/20 23:00 57 14 114/65 (81) 99 03/28/20 22:00 57 14 123/61 (81) 97 03/28/20 21:00 52 15 129/67 (87) 96 03/28/20 20:00 35 03/28/20 20:00 55 03/28/20 20:00 98.2 66 18 142/76 (98) 99 03/28/20 20:00 Mechanical Ventilator 03/28/20 19:50 72 18 35 03/28/20 19:00 64 14 126/74 (91) 99 03/28/20 18:00 62 14 115/66 (82) 98 03/28/20 17:30 69 15 127/72 (90) 98 03/28/20 17:00 64 14 120/66 (84) 98 03/28/20 16:30 62 14 106/65 (79) 99 03/28/20 16:00 98.5 63 17 125/74 (91) 99 03/28/20 16:00 Mechanical Ventilator 03/28/20 16:00 65 03/28/20 15:21 59 14 40 03/28/20 15:00 70 14 115/67 (83) 100 03/28/20 14:00 71 21 126/74 (91) 99 03/28/20 13:00 65 15 118/66 (83) 97 03/28/20 12:30 40 03/28/20 12:20 137/78 03/28/20 12:00 77 03/28/20 12:00 99.2 78 24 137/78 (97) 99 03/28/20 12:00 Mechanical Ventilator 03/28/20 12:00 40 03/28/20 11:29 81 19 40 03/28/20 11:00 71 24 121/70 (87) 100 Labs: Labs Test 03/27/20 04:45 03/27/20 11:46 03/28/20 03:00 03/29/20 04:00 White Blood Count 8.8 K/UL (4.8-10.8) 7.4 K/UL (4.8-10.8) Red Blood Count 3.10 M/UL (4.20-5.40) 3.12 M/UL (4.20-5.40) Hemoglobin 9.6 G/DL (12.0-16.0) 9.7 G/DL (12.0-16.0) Hematocrit 29.7 % (37.0-47.0) 29.9 % (37.0-47.0) Mean Corpuscular Volume 96 FL (80-99) 96 FL (80-99) Mean Corpuscular Hemoglobin 31.1 PG (27.0-31.0) 31.0 PG (27.0-31.0) Mean Corpuscular Hemoglobin Concent 32.5 G/DL (32.0-36.0) 32.4 G/DL (32.0-36.0) Red Cell Distribution Width 13.6 % (11.6-14.8) 13.4 % (11.6-14.8) Platelet Count 352 K/UL (150-450) 370 K/UL (150-450) Mean Platelet Volume 8.1 FL (6.5-10.1) 8.0 FL (6.5-10.1) Neutrophils (%) (Auto) 73.7 % (45.0-75.0) 77.7 % (45.0-75.0) Lymphocytes (%) (Auto) 16.1 % (20.0-45.0) 15.4 % (20.0-45.0) Monocytes (%) (Auto) 7.6 % (1.0-10.0) 5.7 % (1.0-10.0) Eosinophils (%) (Auto) 1.4 % (0.0-3.0) 0.3 % (0.0-3.0) Basophils (%) (Auto) 1.2 % (0.0-2.0) 0.9 % (0.0-2.0) Prothrombin Time 10.9 SEC (9.30-11.50) Prothromb Time International Ratio 1.0 (0.9-1.1) Activated Partial Thromboplast Time 29 SEC (23-33) Sodium Level 137 MMOL/L (136-145) 138 MMOL/L (136-145) 135 MMOL/L (136-145) Potassium Level 3.4 MMOL/L (3.5-5.1) 4.3 MMOL/L (3.5-5.1) 3.9 MMOL/L (3.5-5.1) Chloride Level 102 MMOL/L (98-107) 102 MMOL/L (98-107) 99 MMOL/L (98-107) Carbon Dioxide Level 29 MMOL/L (21-32) 29 MMOL/L (21-32) 30 MMOL/L (21-32) Anion Gap 7 mmol/L (5-15) 7 mmol/L (5-15) 6 mmol/L (5-15) Blood Urea Nitrogen 11 mg/dL (7-18) 8 mg/dL (7-18) 10 mg/dL (7-18) Creatinine 0.6 MG/DL (0.55-1.30) 0.6 MG/DL (0.55-1.30) 0.6 MG/DL (0.55-1.30) Estimat Glomerular Filtration Rate > 60 mL/min (>60) > 60 mL/min (>60) > 60 mL/min (>60) Glucose Level 106 MG/DL (74-106) 117 MG/DL (74-106) 124 MG/DL (74-106) Calcium Level 8.3 MG/DL (8.5-10.1) 8.0 MG/DL (8.5-10.1) 8.1 MG/DL (8.5-10.1) Arterial Blood pH 7.484 (7.350-7.450) Arterial Blood Partial Pressure CO2 38.9 mmHg (35.0-45.0) Arterial Blood Partial Pressure O2 92.9 mmHg (75.0-100.0) Arterial Blood HCO3 28.6 mmol/L (22.0-26.0) Arterial Blood Oxygen Saturation 97.1 % (95-100) Arterial Blood Base Excess 4.9 (-2-2) Keith Test Positive Total Bilirubin 0.2 MG/DL (0.2-1.0) Aspartate Amino Transf (AST/SGOT) 15 U/L (15-37) Alanine Aminotransferase (ALT/SGPT) 16 U/L (12-78) Alkaline Phosphatase 79 U/L (46-116) Total Protein 6.2 G/DL (6.4-8.2) Albumin 1.7 G/DL (3.4-5.0) Globulin 4.5 g/dL Albumin/Globulin Ratio 0.4 (1.0-2.7) Objective: GENERAL: An ill-appearing female. NAD on Vent NECK: Supple. No adenopathy. LUNGS: Coarse breath sounds. Moderate air entry. ETT in place; no rhonchi or wheeze CARDIAC: S1, S2. Regular rate and rhythm without murmur. ABDOMEN: Soft, nontender, nondistended. feeding tube EXTREMITIES: No cyanosis, clubbing, or edema. reduced LOC but arouseable resting on the vent reviewed and edited Micro: Microbiology Date/Time Source Procedure Growth Status 03/27/20 11:05 Sputum Gram Stain - Final Complete 03/27/20 11:05 Sputum Culture - Final Klebsiella Pneumoniae Complete Javier Blake MD Mar 29, 2020 10:29
[2020-03-29] MEDS: Levofloxacin 750mg tab NG SCH (11:50)
[2020-03-29] MEDS: Norepinephrine 4mg/NS Premix 250 ML IV SCH (13:14)
--- NOTE | 2020-03-29 13:15 | NUR ---
NURSE NOTES: MIDODRINE 10MG HELD, PT BP 154/79, HR 54. WILL CONTINUE TO MONITOR PT.
[2020-03-29] MEDS: Atropine Inj 1mg/10ml Syr IVP PRN (14:26)
--- NOTE | 2020-03-29 14:27 | NUR ---
NURSE NOTES: pt placed back on ac 14 mode. hr decreased to 35. pt symptomatic, clammy, decreased loc. atropine 1mg/ 10ml ivp per md order for hr <40bpm. will monitor pt. MD Perez here to se pt. informed of weaning, secretions remain same. hr decreased giving atropine. no new orders at this time.
--- NOTE | 2020-03-29 14:59 | Surgery Progress Note ---
Surgery Progress Note Subjective Additional Comments bradycardia still with secretions significant tolerating weaning well Objective Last 24 Hour Vital Signs Date Time Temp Pulse Resp B/P (MAP) Pulse Ox O2 Delivery O2 Flow Rate FiO2 03/29/20 14:31 35 03/29/20 14:00 45 14 130/75 (93) 98 03/29/20 13:00 98.8 46 17 154/79 (104) 98 03/29/20 12:00 35 03/29/20 12:00 Mechanical Ventilator 03/29/20 12:00 79 03/29/20 12:00 77 21 129/80 (96) 98 03/29/20 11:42 55 24 98 Mechanical Ventilator 35 60 24 35 03/29/20 11:00 51 21 163/92 (115) 98 03/29/20 10:00 55 21 147/81 (103) 96 03/29/20 09:00 65 24 146/109 (121) 97 03/29/20 08:01 65 21 35 03/29/20 08:00 65 03/29/20 08:00 35 03/29/20 08:00 Mechanical Ventilator 03/29/20 08:00 98.1 64 20 118/76 (90) 100 03/29/20 07:56 58 14 100 Mechanical Ventilator 35 71 21 35 03/29/20 07:00 60 15 121/68 (85) 99 03/29/20 06:30 63 15 03/29/20 06:00 70 21 111/93 (99) 99 03/29/20 05:00 54 14 113/62 (79) 100 03/29/20 04:00 Mechanical Ventilator 03/29/20 04:00 35 03/29/20 04:00 98.1 53 14 112/60 (77) 98 03/29/20 04:00 52 03/29/20 03:01 52 15 97 Mechanical Ventilator 35 53 15 35 03/29/20 03:00 51 15 140/75 (96) 96 03/29/20 02:00 57 14 117/62 (80) 100 03/29/20 01:00 59 15 148/69 (95) 98 03/29/20 00:00 98.5 58 14 123/67 (85) 100 03/29/20 00:00 57 03/29/20 00:00 Mechanical Ventilator 03/28/20 23:30 70 17 100 Mechanical Ventilator 35 60 14 35 03/28/20 23:00 57 14 114/65 (81) 99 03/28/20 22:00 57 14 123/61 (81) 97 03/28/20 21:00 52 15 129/67 (87) 96 03/28/20 20:00 35 03/28/20 20:00 55 03/28/20 20:00 98.2 66 18 142/76 (98) 99 03/28/20 20:00 Mechanical Ventilator 03/28/20 19:50 72 18 35 03/28/20 19:00 64 14 126/74 (91) 99 03/28/20 18:00 62 14 115/66 (82) 98 03/28/20 17:30 69 15 127/72 (90) 98 03/28/20 17:00 64 14 120/66 (84) 98 03/28/20 16:30 62 14 106/65 (79) 99 03/28/20 16:00 98.5 63 17 125/74 (91) 99 03/28/20 16:00 Mechanical Ventilator 03/28/20 16:00 65 03/28/20 15:21 59 14 40 03/28/20 15:00 70 14 115/67 (83) 100 I&O Intake and Output 03/28/20 03/29/20 19:00 07:00 Intake Total 1533 ml 1570 ml Output Total 870 ml 680 ml Balance 663 ml 890 ml IV Total 638 ml 710 ml Tube Feeding 555 ml 660 ml Other 340 ml 200 ml Output Urine Total 870 ml 680 ml # Bowel Movements 2 Dressing: other Wound: other Drains: other Cardiovascular: RSR Respiratory: decreased breath sounds Abdomen: soft, non-tender, present bowel sounds Extremities: no tenderness, no cyanosis Laboratory Tests Test 03/29/20 04:00 03/29/20 12:13 White Blood Count 7.4 K/UL (4.8-10.8) Red Blood Count 3.12 M/UL (4.20-5.40) L Hemoglobin 9.7 G/DL (12.0-16.0) L Hematocrit 29.9 % (37.0-47.0) L Mean Corpuscular Volume 96 FL (80-99) Mean Corpuscular Hemoglobin 31.0 PG (27.0-31.0) Mean Corpuscular Hemoglobin Concent 32.4 G/DL (32.0-36.0) Red Cell Distribution Width 13.4 % (11.6-14.8) Platelet Count 370 K/UL (150-450) Mean Platelet Volume 8.0 FL (6.5-10.1) Neutrophils (%) (Auto) 77.7 % (45.0-75.0) H Lymphocytes (%) (Auto) 15.4 % (20.0-45.0) L Monocytes (%) (Auto) 5.7 % (1.0-10.0) Eosinophils (%) (Auto) 0.3 % (0.0-3.0) Basophils (%) (Auto) 0.9 % (0.0-2.0) Sodium Level 135 MMOL/L (136-145) L Potassium Level 3.9 MMOL/L (3.5-5.1) Chloride Level 99 MMOL/L (98-107) Carbon Dioxide Level 30 MMOL/L (21-32) Anion Gap 6 mmol/L (5-15) Blood Urea Nitrogen 10 mg/dL (7-18) Creatinine 0.6 MG/DL (0.55-1.30) Estimat Glomerular Filtration Rate > 60 mL/min (>60) Glucose Level 124 MG/DL (74-106) H Calcium Level 8.1 MG/DL (8.5-10.1) L Total Bilirubin 0.2 MG/DL (0.2-1.0) Aspartate Amino Transf (AST/SGOT) 15 U/L (15-37) Alanine Aminotransferase (ALT/SGPT) 16 U/L (12-78) Alkaline Phosphatase 79 U/L (46-116) Total Protein 6.2 G/DL (6.4-8.2) L Albumin 1.7 G/DL (3.4-5.0) L Globulin 4.5 g/dL Albumin/Globulin Ratio 0.4 (1.0-2.7) L Arterial Blood pH 7.467 (7.350-7.450) Arterial Blood Partial Pressure CO2 41.4 mmHg (35.0-45.0) Arterial Blood Partial Pressure O2 88.8 mmHg (75.0-100.0) Arterial Blood HCO3 29.3 mmol/L (22.0-26.0) H Arterial Blood Oxygen Saturation 96.7 % (95-100) Arterial Blood Base Excess 5.1 (-2-2) H Keith Test Positive Plan Problems: (1) Malnutrition Assessment & Plan: not eating enough TF started adv as tolerated bowel regimen DDAILY ESTIMATED NEEDS: Needs based on Wound, pulmonary / 56kg 25-35 kcals/kg 3887-8564 total kcals 1.25-1.8 g protein/kg 70-100 g total protein 25-30 mL/kg 9708-5785 total fluid mLs NUTRITION DIAGNOSIS: * Swallowing difficulty R/T dysphagia as evidenced by [facility] w/ rec for NPO, now on NGT feeds. * Increased kcal/prot/micronutrients needs R/T wound healing as evidenced by pt admitted w/ multiple wounds including full thickness wound @ sacrum, TPI wound @ L Gluteal cheek, and non-Blanchable erythema @ BL heels. CURRENT TF:Jevity 1.2 @30ml/hr ENTERAL NUTRITION RECOMMENDATIONS: JEVITY 1.2 goal of 55ml/hr x24 hrs to provide 1320ml, 1584 kcal, 73g pro, 1065ml free H2O - rec to INCREASE current TF as tolerated to goal of 55ml/hr to better meet est needs. - flush per CHRISTINA JONES over 30 degrees ADDITIONAL RECOMMENDATIONS: * Per SNF: HT=66" TA=324eep (03/07/20) * Wound healing: continue MVI, Vit C, and ZnSO4 * VIA NGT-> add TONI BID for wound care TF recs as above * Monitor lytes, replete as needed THIS 60 Y.O.M. WAS ADMITTED WITH ACUTE ISSUES - FEVER, HYPOXIC WITH LOW 02 SATS ON NON-REBREATHER, RESP RATE 18 BPM INITIALLY PER MEDICAL RECORD. PER RN, THE PATIENT HAD A RAPID RESPOSE THIS MORNING (DESAT TO 90S AND RAPID RESP RATE). H/O COPD, CARDIAC DZ, HYPOTHYROIDISM, HTN, ALLERGIC RHINITIS, SCHIZOPHRENIA (ON OLANZAPINE AT SNF), BASELINE NONVERBAL. PER POLST FULL TX BUT NO INFORMATION REGARDING TUBE FEEDING PREFERENCES. AT SNF ON A REGULAR DIET TEXTURE AND THIN LIQUIDS WITH PROSTAT SF DRINK WITH MEALS. NOW ON A REGULAR TEXTURE DIET AND THIN LIQUIDS BUT DID NOT TAKE ANY PO. PER LAURIE EARLY, THE PT UNABLE TO TAKE LARGE PILLS BUT APPEARED TO TOLERATE CRUSHED MEDS WITH APPLESAUCE W/O OVERT ASPIRATION. PATIENT SEEN WITH FUNMI HEATH. PER RT RESP RATE 22 BPM AND NOT ABLE TO ongoing unintelligible confabulations. Patient did request a sandwich, however, not appropriate for regular texture at this time. VITALS ON 2 L NASAL CANNULA: HR: 73; RR: 20; SP02: 95% Patient's oral hygiene is improving, ongoing poor speech intelligibility which appears to be more due to poor articulation precision/oral motor coordination versus 2/2 dry mouth. CXR on 03/14/20: Findings: Interim considerable improvement of previously demonstrated left lower lobe infiltrate. There is a residual disease in the retrocardiac region as well as generalized reticular interstitial opacities throughout the left mid and lower lung. There is questionably a 3 cm spiculated opacity projected over the apex. Minimal right mid and lower lung reticular opacities are also demonstrated. There is some right midlung atelectasis versus thickening of the minor fissure. The heart size is normal. The pleural spaces are clear Impression: Considerable improvement the persistence of previously demonstrated left mid and lower lung infiltrates, since prior study of 03/11/2020. [facility] plans to continue to f/u and monitor Patients readiness for PO trials for diet texture upgrade. RN aware of recommendations, plan, and aspiration precautions sign posted above Patients HOB. RECOMMENDATIONS: 1. Continue Moist Puree with [place] Thick Liquids Diet via 1 to 1 careful handfeeding while implementing posted aspiration precautions - RD recommendations appreciated for diet texture/type 2. Patient requires oral hygiene BID + lip moisturizer. (2) Decubitus skin ulcer Assessment & Plan: Pt presented on admission with multiple pressure injuries. Full thickness Pressure injury Sacrococcygeal area. (L)4cm x (W)2.5cm. Base of wound is fatou with scattered slough ,which was easily removed with gentle friction. Wound is now fatou with 25% soft necrosis at distal base of wound. Small amt sanguineous exudate noted.No odor noted. Periwound erythematous and denuded. Two additional Pressure Injuries noted to R gluteal cheek.(Proximal) Base of wound is purple and indurated(L)3cm x (W)1.5cm. Surrounding erythematous and denuded skin (Distal) R gluteus(L)1.4cm x (W)0.6cm. Base of wound is purple, indurated with surrounding erythematous and denuded skin. DTPI L Gluteal cheek (L)1.5cm x (W)1.3cm. Base of wound is indurated, purple with surrounding non-blanching erythema. Additional scattered areas that are maroon in colour noted to L gluteal cheek. Lateral L Heel boggy with non-blanching erythema with delineated margins. (L) 4cm x (W)4.5cm. Lateral R Heel Boggy with non-Blanchable erythema with delineated margins(L) 2.5cm x (W)2.5cm. Tx.Plan: Cleanse Sacrococcygeal area with saline. Apply TheraHoney , Apply Moisture Barrier Paste to Sacrum, R and L Buttocks. Cover entire Area with Optifoam drsgs. Change every 3 days and prn. Apply Moisture Barrier Paste to R and L Buttocks . Cover with Optifoam drsgs. Changee very 3 days and prn. Apply Cavilon Skin Barrier to R and L Trochanteric areas. Cover with Optifoam drsg. Change every 7 days and prn. Apply Cavilon Skin Barrier to R and L Heels. Cover each heel with Optifoam drsg. Change every 7 days and prn. Reposition at least every 2hours or as tolerated. Off-load heels with Pillow. APM/ERIK Mattress. (3) Pneumonia Assessment & Plan: Lungs: There is mild left lower lobe infiltrate consistent with pneumonia. Pleural space: Unremarkable. No pneumothorax. Heart: The heart size is at the upper limits of normal. Mediastinum: Unremarkable. Bones/joints: Unremarkable. IMPRESSION: There is mild left lower lobe infiltrate consistent with pneumonia. worsening on bipap now will monitor closely intubated now 03/21 wean vent Continue weaning. Will hopefully be extubated potentially. Gases noted. (4) COPD (chronic obstructive pulmonary disease) Assessment & Plan: On vent support weaning Potential extubation soon (5) Fever Eddie Perez Mar 29, 2020 14:59
--- NOTE | 2020-03-29 16:09 | NUR ---
*-* INSURANCE *-* UPDATED CLINICALS AND REVIEWS HAVE BEEN FAXED TO: [facility] Ref# [id number] F: [phone]
--- NOTE | 2020-03-29 16:20 | NUR ---
NURSE NOTES: PT CLEANED, REPOSITIONED. ORAL CARE AND SUCTION PROVIDED. PT AFEBRILE. G-TUBE PATENT. NO RESIDUALS. PT SMALL BM, SOFT, BROWN. MEDICATION ADMINISTERED PER MD ORDERS. SECOND R.N REMOVED 2 BROWN COLORED BRACELETS, CAUSING DISCOLORATION OF LEFT WRIST ON PASSING MINOR SKIN TEAR TO KNUCKLES, DRESSING APPLIED. REMOVED RING FROM LEFT HAND, DUE TO EDEMA, REDNESS AND DISCOLORATION. PLACED WITH PT'S OTHER BELONGINGS.
--- NOTE | 2020-03-29 16:38 | General Progress Note ---
Assessment/Plan Problem List: (1) COPD (chronic obstructive pulmonary disease) ICD Codes: J44.9 - Chronic obstructive pulmonary disease, unspecified SNOMED: 73749316 Qualifiers: Qualified Codes: J44.9 - Chronic obstructive pulmonary disease, unspecified (2) Pneumonia ICD Codes: J18.9 - Pneumonia, unspecified organism SNOMED: 742891285 Qualifiers: Qualified Codes: J18.9 - Pneumonia, unspecified organism (3) Fever ICD Codes: R50.9 - Fever, unspecified SNOMED: [id number] Status: stable, progressing Assessment/Plan: vent support resp rx and suctioning wean per pulm iv abx per id follow up labs ivf tube feeds monitor labs skin care turn q2 critical and guarded Subjective ROS Limited/Unobtainable: Yes Constitutional: Reports: malaise, weakness HEENT: Reports: no symptoms Cardiovascular: Reports: no symptoms Respiratory: Reports: shortness of breath, sputum Gastrointestinal/Abdominal: Reports: difficulty swallowing Genitourinary: Reports: no symptoms Neurologic/Psychiatric: Reports: pre-existing deficit Endocrine: Reports: no symptoms Hematologic/Lymphatic: Reports: no symptoms Allergies: Coded Allergies: PENICILLINS (Verified Allergy, Unknown, 03/11/20) All Systems: reviewed and negative except above Subjective remains intubated. off pressors. no fevers. calm. labs reviewed. tolerating feeds. currently weaning. some bradycardia. Objective Last 24 Hour Vital Signs Date Time Temp Pulse Resp B/P (MAP) Pulse Ox O2 Delivery O2 Flow Rate FiO2 03/29/20 16:00 77 17 163/91 (115) 100 03/29/20 16:00 62 03/29/20 15:30 69 15 98 Mechanical Ventilator 35 67 16 35 03/29/20 15:00 76 14 149/85 (106) 100 03/29/20 14:31 35 03/29/20 14:27 98 03/29/20 14:00 45 14 130/75 (93) 98 03/29/20 13:00 98.8 46 17 154/79 (104) 98 03/29/20 12:00 35 03/29/20 12:00 Mechanical Ventilator 03/29/20 12:00 79 03/29/20 12:00 77 21 129/80 (96) 98 03/29/20 11:42 55 24 98 Mechanical Ventilator 35 60 24 35 03/29/20 11:00 51 21 163/92 (115) 98 03/29/20 10:00 55 21 147/81 (103) 96 03/29/20 09:00 65 24 146/109 (121) 97 03/29/20 08:01 65 21 35 03/29/20 08:00 65 03/29/20 08:00 35 03/29/20 08:00 Mechanical Ventilator 03/29/20 08:00 98.1 64 20 118/76 (90) 100 03/29/20 07:56 58 14 100 Mechanical Ventilator 35 71 21 35 03/29/20 07:00 60 15 121/68 (85) 99 03/29/20 06:30 63 15 03/29/20 06:00 70 21 111/93 (99) 99 03/29/20 05:00 54 14 113/62 (79) 100 03/29/20 04:00 Mechanical Ventilator 03/29/20 04:00 35 03/29/20 04:00 98.1 53 14 112/60 (77) 98 03/29/20 04:00 52 03/29/20 03:01 52 15 97 Mechanical Ventilator 35 53 15 35 03/29/20 03:00 51 15 140/75 (96) 96 03/29/20 02:00 57 14 117/62 (80) 100 03/29/20 01:00 59 15 148/69 (95) 98 03/29/20 00:00 98.5 58 14 123/67 (85) 100 03/29/20 00:00 57 03/29/20 00:00 Mechanical Ventilator 03/28/20 23:30 70 17 100 Mechanical Ventilator 35 60 14 35 03/28/20 23:00 57 14 114/65 (81) 99 03/28/20 22:00 57 14 123/61 (81) 97 03/28/20 21:00 52 15 129/67 (87) 96 03/28/20 20:00 35 03/28/20 20:00 55 03/28/20 20:00 98.2 66 18 142/76 (98) 99 03/28/20 20:00 Mechanical Ventilator 03/28/20 19:50 72 18 35 03/28/20 19:00 64 14 126/74 (91) 99 03/28/20 18:00 62 14 115/66 (82) 98 03/28/20 17:30 69 15 127/72 (90) 98 03/28/20 17:00 64 14 120/66 (84) 98 Intake and Output 03/28/20 03/29/20 19:00 07:00 Intake Total 1533 ml 1570 ml Output Total 870 ml 680 ml Balance 663 ml 890 ml IV Total 638 ml 710 ml Tube Feeding 555 ml 660 ml Other 340 ml 200 ml Output Urine Total 870 ml 680 ml # Bowel Movements 2 Laboratory Tests 03/29/20 04:00: White Blood Count 7.4, Red Blood Count 3.12L, Hemoglobin 9.7L, Hematocrit 29.9L , Mean Corpuscular Volume 96, Mean Corpuscular Hemoglobin 31.0, Mean Corpuscular Hemoglobin Concent 32.4, Red Cell Distribution Width 13.4, Platelet Count 370, Mean Platelet Volume 8.0, Neutrophils (%) (Auto) 77.7H, Lymphocytes ( %) (Auto) 15.4L, Monocytes (%) (Auto) 5.7, Eosinophils (%) (Auto) 0.3, Basophils (%) (Auto) 0.9, Sodium Level 135L, Potassium Level 3.9, Chloride Level 99, Carbon Dioxide Level 30, Anion Gap 6, Blood Urea Nitrogen 10, Creatinine 0.6, Estimat Glomerular Filtration Rate > 60, Glucose Level 124H, Calcium Level 8.1L, Total Bilirubin 0.2, Aspartate Amino Transf (AST/SGOT) 15, Alanine Aminotransferase (ALT/SGPT) 16, Alkaline Phosphatase 79, Total Protein 6.2L, Albumin 1.7L, Globulin 4.5, Albumin/Globulin Ratio 0.4L 03/29/20 12:13: Arterial Blood pH 7.467H, Arterial Blood Partial Pressure CO2 41.4, Arterial Blood Partial Pressure O2 88.8, Arterial Blood HCO3 29.3H, Arterial Blood Oxygen Saturation 96.7, Arterial Blood Base Excess 5.1H, Keith Test Positive Height (Feet): 5 Height (Inches): 5.00 Weight (Pounds): 145 Objective General Appearance: WD/WN, lethargic. intubated Neck: non-tender Cardiovascular: normal rate, regular rhythm Respiratory/Chest: chest wall non-tender, lungs clear, normal breath sounds Abdomen: normal bowel sounds, non tender, soft, no organomegaly Edema: no edema noted Arm (L), no edema noted Arm (R), no edema noted Leg (L), no edema noted Leg (R), no edema noted Pedal (L), no edema noted Pedal (R), no edema noted Generalized Neurologic: alert Isaak Ledesma MD Mar 29, 2020 16:38
--- NOTE | 2020-03-29 17:02 | NUR ---
CASE MANAGEMENT:REVIEW 03/29/20 SI:COPD. PNA. RESPIRATORY FAILURE~ORALLY INTUBATED. SPUTUM CX GRAM NEGATIVE BACILLUS . 98.1 64 20 118/76 100% MECH VENT FIO2 @ 35 H/H 9.7/29.9 AB.467 HCO3 29.3 IS:IV ATROPINE Q1HR/PRN NG LEVAQUIN QD IV NS @ 50ML/HR IV PROTONIX QD VIT C NGT QD ZINC SULFATE NGT QD ALBUTEROL INH Q4HR HEPARIN SQ BID LACTULOSE NG TID HEPARIN SQ BID TUBE FEEDING \: ICU STATUS DCP:[facility] WHEN STABLE PLAN: WEANING TRAILS INCREASE SECRETION HOLD EXTUBATION - RE-EVAL IN AM SPUTUM CX IN PROCESS
--- NOTE | 2020-03-29 19:28 | NUR ---
HAND-OFF: Report given to gillian schwarz pt hr 43, endorsed atropine for hr<40.
[2020-03-29] MEDS: Dyna-Hex 2% Top Sol 2oz TOPIC SCH (19:53)
--- NOTE | 2020-03-29 19:55 | NUR ---
NURSE NOTES: LE: PATIENT ASLEEP STATUS, OPEN EYES TO NAME, ON ETT TO VENT, AC 14/TV500/FIO2 35%/PEEP5, O2 SATURATION 100% NOTED, HR 50'S/MIN SB NOTED, OGT INTACT AND PATENT, ONGOING JEVITY 1.2 AT 55ML/HR, CHECKED RESIDUE 30ML OUTED, KEPT HOB 30 DEGREES AND ASPIRATION PRECAUTION, F/C INTACT AND PATENT, YELLOW URINE OUTED, PICC LINE TO LEFT UPPER ARM, INTACT AND PATENT, ONGOING IV FLUID 1/2 NS AT 50ML/HR VIA PICC LINE, ON P200 BED, MADE LOWER BED POSITION, ON BED ALARM AND LOCKED, PLACED CALL LIGHT WITHIN REACH, WILL CONTINUE TO MONITOR.
--- NOTE | 2020-03-29 21:35 | General Progress Note ---
Assessment/Plan Status: stable, progressing Assessment/Plan: Assessment - Resp failure - weaning - dysphagia, NGT dependent - COPD - Anemia - leukocytosis - improved - hypothyroid Recommendations - pulmonary f/u - NGT feeds - elevate HOB - follow labs and exam - PEG placement once stabilized Subjective Allergies: Coded Allergies: PENICILLINS (Verified Allergy, Unknown, 03/11/20) Subjective Above noted seen in ICU on vent tolerating NGT feeds Objective Last 24 Hour Vital Signs Date Time Temp Pulse Resp B/P (MAP) Pulse Ox O2 Delivery O2 Flow Rate FiO2 03/29/20 19:10 60 18 100 Mechanical Ventilator 35 62 17 35 03/29/20 18:00 50 14 114/65 (81) 100 03/29/20 17:00 76 18 128/63 (84) 100 03/29/20 16:00 Mechanical Ventilator 03/29/20 16:00 77 17 163/91 (115) 100 03/29/20 16:00 62 03/29/20 15:30 69 15 98 Mechanical Ventilator 35 67 16 35 03/29/20 15:00 76 14 149/85 (106) 100 03/29/20 14:31 35 03/29/20 14:27 98 03/29/20 14:00 45 14 130/75 (93) 98 03/29/20 13:00 98.8 46 17 154/79 (104) 98 03/29/20 12:00 35 03/29/20 12:00 Mechanical Ventilator 03/29/20 12:00 79 03/29/20 12:00 77 21 129/80 (96) 98 03/29/20 11:42 55 24 98 Mechanical Ventilator 35 60 24 35 03/29/20 11:00 51 21 163/92 (115) 98 03/29/20 10:00 55 21 147/81 (103) 96 03/29/20 09:00 65 24 146/109 (121) 97 03/29/20 08:01 65 21 35 03/29/20 08:00 65 03/29/20 08:00 35 03/29/20 08:00 Mechanical Ventilator 03/29/20 08:00 98.1 64 20 118/76 (90) 100 03/29/20 07:56 58 14 100 Mechanical Ventilator 35 71 21 35 03/29/20 07:00 60 15 121/68 (85) 99 03/29/20 06:30 63 15 03/29/20 06:00 70 21 111/93 (99) 99 03/29/20 05:00 54 14 113/62 (79) 100 03/29/20 04:00 Mechanical Ventilator 03/29/20 04:00 35 03/29/20 04:00 98.1 53 14 112/60 (77) 98 03/29/20 04:00 52 03/29/20 03:01 52 15 97 Mechanical Ventilator 35 53 15 35 03/29/20 03:00 51 15 140/75 (96) 96 03/29/20 02:00 57 14 117/62 (80) 100 03/29/20 01:00 59 15 148/69 (95) 98 03/29/20 00:00 98.5 58 14 123/67 (85) 100 03/29/20 00:00 57 03/29/20 00:00 Mechanical Ventilator 03/28/20 23:30 70 17 100 Mechanical Ventilator 35 60 14 35 03/28/20 23:00 57 14 114/65 (81) 99 03/28/20 22:00 57 14 123/61 (81) 97 Intake and Output 03/28/20 03/29/20 19:00 07:00 Intake Total 1533 ml 1570 ml Output Total 870 ml 740 ml Balance 663 ml 830 ml IV Total 638 ml 710 ml Tube Feeding 555 ml 660 ml Other 340 ml 200 ml Output Urine Total 870 ml 740 ml # Bowel Movements 2 Laboratory Tests 03/29/20 04:00: White Blood Count 7.4, Red Blood Count 3.12L, Hemoglobin 9.7L, Hematocrit 29.9L , Mean Corpuscular Volume 96, Mean Corpuscular Hemoglobin 31.0, Mean Corpuscular Hemoglobin Concent 32.4, Red Cell Distribution Width 13.4, Platelet Count 370, Mean Platelet Volume 8.0, Neutrophils (%) (Auto) 77.7H, Lymphocytes ( %) (Auto) 15.4L, Monocytes (%) (Auto) 5.7, Eosinophils (%) (Auto) 0.3, Basophils (%) (Auto) 0.9, Sodium Level 135L, Potassium Level 3.9, Chloride Level 99, Carbon Dioxide Level 30, Anion Gap 6, Blood Urea Nitrogen 10, Creatinine 0.6, Estimat Glomerular Filtration Rate > 60, Glucose Level 124H, Calcium Level 8.1L, Total Bilirubin 0.2, Aspartate Amino Transf (AST/SGOT) 15, Alanine Aminotransferase (ALT/SGPT) 16, Alkaline Phosphatase 79, Total Protein 6.2L, Albumin 1.7L, Globulin 4.5, Albumin/Globulin Ratio 0.4L 03/29/20 12:13: Arterial Blood pH 7.467H, Arterial Blood Partial Pressure CO2 41.4, Arterial Blood Partial Pressure O2 88.8, Arterial Blood HCO3 29.3H, Arterial Blood Oxygen Saturation 96.7, Arterial Blood Base Excess 5.1H, Keith Test Positive Height (Feet): 5 Height (Inches): 5.00 Weight (Pounds): 145 Objective Thin WW NCAT (+) ETT supple coarse BS RR abd soft NT ND no edema Douglas Tucker MD Mar 29, 2020 21:35
--- NOTE | 2020-03-29 22:02 | NUR ---
NURSE NOTES: REPOSITIONED, ORAL CARE WAS DONE, NO DISTRESS NOTED AT THIS TIME.
[2020-03-30] VITALS (25 sets, daily range): BP systolic 112–171; BP diastolic 74–118
--- NOTE | 2020-03-30 00:23 | NUR ---
NURSE NOTES: PATIENT OPEN EYES, DID NOT FOLLOW COMMANDS, TOLERATED OGT FEEDING, NO DISTRESS NOTED AT THIS TIME, WILL CONTINUE TO MONITOR.
--- NOTE | 2020-03-30 02:11 | NUR ---
NURSE NOTES: PATIENT ASLEEP STATUS, NO PAIN OR SOB NOTED.
--- NOTE | 2020-03-30 04:23 | NUR ---
NURSE NOTES: MORNING CARE AND ORAL CARE WAS DONE.
[2020-03-30 05:32] LABS: ALANINE AMINOTRANSFERASE 23 U/L (12-78); ALBUMIN 1.7 G/DL (3.4-5.0); ALBUMIN/GLOBULIN RATIO 0.4 (1.0-2.7); ALKALINE PHOSPHATASE 78 U/L (46-116); ANION GAP 5 mmol/L (5-15); ASPARTATE AMINO TRANSFERASE 13 U/L (15-37); BASOPHILS % (AUTO) 0.5 % (0.0-2.0); BILIRUBIN,TOTAL 0.2 MG/DL (0.2-1.0); BLOOD UREA NITROGEN 8 mg/dL (7-18); CARBON DIOXIDE 32 MMOL/L (21-32); CHLORIDE 100 MMOL/L (98-107); CREATININE 0.5 MG/DL (0.55-1.30); EOSINOPHILS % (AUTO) 0.3 % (0.0-3.0); HEMATOCRIT 30.1 % (37.0-47.0); HEMOGLOBIN 9.8 G/DL (12.0-16.0); LYMPHOCYTES % (AUTO) 17.1 % (20.0-45.0); MEAN CORPUSCULAR VOLUME 95 FL (80-99); MONOCYTES % (AUTO) 4.5 % (1.0-10.0); NEUTROPHILS % (AUTO) 77.7 % (45.0-75.0); PLATELET COUNT 383 K/UL (150-450); POTASSIUM 3.9 MMOL/L (3.5-5.1); RED BLOOD COUNT 3.16 M/UL (4.20-5.40); RED CELL DISTRIBUTION WIDTH 13.2 % (11.6-14.8); SODIUM 136 MMOL/L (136-145); WHITE BLOOD COUNT 7.1 K/UL (4.8-10.8)
[2020-03-30] MEDS: Albuterol 90mcg Inhaler 8gm INH SCH ×6 (05:35→22:39)
--- NOTE | 2020-03-30 06:20 | NUR ---
NURSE NOTES: NO ACUTE DISTRESS NOTED AT THIS SHIFT.
--- NOTE | 2020-03-30 07:05 | NUR ---
HAND-OFF: Report given to SHARATH JAMES.
--- NOTE | 2020-03-30 07:30 | NUR ---
NURSE NOTES: LATE ENTRY: RECEIVED REPORT FROM NUHA Baez PT OPENS EYES, FLAT EFFECT. ETT 7.0, 23 CM AT LIP. VENT SETTINGS AC 14, VT 500, FI02 35%, PEEP 5. SECRETIONS SMALL, WHITE THIN. TACHYPNEIC. ABDOMEN ROUND. BOWEL SOUNDS NOTED IN ALL FOUR QUADRANTS. NO BM. AZAR, DRAINING YELLOW URINE. BILATERAL RADIAL AND PEDAL PULSES WEAK. SKIN- SEE ASSESSMENT. IV ACCESS YUMIKO PICC. PATENT, DRESSING DRY AND INTACT. RUNNING 1/2 NS AT 50ML/HR. PT AFEBRILE. PT ON P200 AIR MATTRESS. CONTACT PRECAUTIONS IN PLACE. CALL LIGHT IN REACH. BED LOCKED, IN LOW POSITION, SIDE RAILS UP X2. BED ALARM ON. INFORMED OF PLAN OF CARE, WEANING TODAY. WILL CONTINUE TO MONITOR PT.
--- NOTE | 2020-03-30 08:17 | General Progress Note ---
Assessment/Plan Problem List: (1) COPD (chronic obstructive pulmonary disease) ICD Codes: J44.9 - Chronic obstructive pulmonary disease, unspecified SNOMED: [id number] Qualifiers: Qualified Codes: J44.9 - Chronic obstructive pulmonary disease, unspecified (2) Pneumonia ICD Codes: J18.9 - Pneumonia, unspecified organism SNOMED: [id number] Qualifiers: Qualified Codes: J18.9 - Pneumonia, unspecified organism (3) Fever ICD Codes: R50.9 - Fever, unspecified SNOMED: [id number] Status: stable, progressing Assessment/Plan: vent support resp rx and suctioning wean per pulm iv abx per id follow up labs ivf oral synthroid dc iv tube feeds monitor labs skin care turn q2 critical and guarded Subjective ROS Limited/Unobtainable: No Constitutional: Reports: malaise, weakness HEENT: Reports: no symptoms Cardiovascular: Reports: no symptoms Respiratory: Reports: shortness of breath, sputum Gastrointestinal/Abdominal: Reports: difficulty swallowing Genitourinary: Reports: no symptoms Neurologic/Psychiatric: Reports: anxiety, emotional problems, pre-existing deficit Endocrine: Reports: no symptoms Hematologic/Lymphatic: Reports: no symptoms Allergies: Coded Allergies: PENICILLINS (Verified Allergy, Unknown, 03/11/20) All Systems: reviewed and negative except above Subjective remains intubated. off pressors. no fevers. calm. labs reviewed. tolerating feeds. currently weaning. some bradycardia. Objective Last 24 Hour Vital Signs Date Time Temp Pulse Resp B/P (MAP) Pulse Ox O2 Delivery O2 Flow Rate FiO2 03/30/20 07:05 47 15 97 Mechanical Ventilator 35 47 15 35 03/30/20 07:00 53 16 156/100 (118) 96 03/30/20 06:30 53 14 03/30/20 06:00 59 20 161/104 (123) 99 03/30/20 05:00 48 14 145/98 (114) 96 03/30/20 04:00 Mechanical Ventilator 03/30/20 04:00 98.0 61 14 129/79 (96) 95 03/30/20 04:00 35 03/30/20 03:05 62 03/30/20 03:00 68 17 132/86 (101) 100 03/30/20 02:58 76 19 100 Mechanical Ventilator 35 77 19 35 03/30/20 02:00 65 15 112/76 (88) 100 03/30/20 01:00 61 14 120/74 (89) 99 03/30/20 00:00 35 03/30/20 00:00 78 03/30/20 00:00 Mechanical Ventilator 03/30/20 00:00 98.1 78 20 146/90 (108) 99 03/29/20 23:42 70 20 100 Mechanical Ventilator 35 70 20 35 03/29/20 23:00 62 15 119/63 (81) 100 03/29/20 22:00 55 14 120/63 (82) 100 03/29/20 21:00 53 14 115/65 (82) 100 03/29/20 20:00 97.9 54 14 122/66 (84) 100 03/29/20 20:00 35 03/29/20 20:00 Mechanical Ventilator 03/29/20 19:54 56 03/29/20 19:10 60 18 100 Mechanical Ventilator 35 62 17 35 03/29/20 19:00 51 14 119/58 (78) 100 03/29/20 18:00 50 14 114/65 (81) 100 03/29/20 17:00 76 18 128/63 (84) 100 03/29/20 16:00 Mechanical Ventilator 03/29/20 16:00 77 17 163/91 (115) 100 03/29/20 16:00 62 03/29/20 15:30 69 15 98 Mechanical Ventilator 35 67 16 35 03/29/20 15:00 76 14 149/85 (106) 100 03/29/20 14:31 35 03/29/20 14:27 98 03/29/20 14:00 45 14 130/75 (93) 98 03/29/20 13:00 98.8 46 17 154/79 (104) 98 03/29/20 12:00 35 03/29/20 12:00 Mechanical Ventilator 03/29/20 12:00 79 03/29/20 12:00 77 21 129/80 (96) 98 03/29/20 11:42 55 24 98 Mechanical Ventilator 35 60 24 35 03/29/20 11:00 51 21 163/92 (115) 98 03/29/20 10:00 55 21 147/81 (103) 96 03/29/20 09:00 65 24 146/109 (121) 97 Intake and Output 03/29/20 03/30/20 19:00 07:00 Intake Total 1010 ml 1260 ml Output Total 647 ml 930 ml Balance 363 ml 330 ml IV Total 600 ml 600 ml Tube Feeding 330 ml 660 ml Other 80 ml Output Urine Total 647 ml 930 ml # Bowel Movements 1 2 Laboratory Tests 03/29/20 12:13: Arterial Blood pH 7.467H, Arterial Blood Partial Pressure CO2 41.4, Arterial Blood Partial Pressure O2 88.8, Arterial Blood HCO3 29.3H, Arterial Blood Oxygen Saturation 96.7, Arterial Blood Base Excess 5.1H, Keith Test Positive 03/30/20 04:00: White Blood Count 7.1, Red Blood Count 3.16L, Hemoglobin 9.8L, Hematocrit 30.1L , Mean Corpuscular Volume 95, Mean Corpuscular Hemoglobin 31.1H, Mean Corpuscular Hemoglobin Concent 32.7, Red Cell Distribution Width 13.2, Platelet Count 383, Mean Platelet Volume 7.3, Neutrophils (%) (Auto) 77.7H, Lymphocytes ( %) (Auto) 17.1L, Monocytes (%) (Auto) 4.5, Eosinophils (%) (Auto) 0.3, Basophils (%) (Auto) 0.5, Sodium Level 136, Potassium Level 3.9, Chloride Level 100, Carbon Dioxide Level 32, Anion Gap 5, Blood Urea Nitrogen 8, Creatinine 0.5L, Estimat Glomerular Filtration Rate > 60, Glucose Level 129H, Calcium Level 8.0L, Total Bilirubin 0.2, Aspartate Amino Transf (AST/SGOT) 13L, Alanine Aminotransferase (ALT/SGPT) 23, Alkaline Phosphatase 78, Total Protein 6.1L, Albumin 1.7L, Globulin 4.4, Albumin/Globulin Ratio 0.4L Height (Feet): 5 Height (Inches): 5.00 Weight (Pounds): 144 Objective General Appearance: WD/WN, lethargic. intubated Neck: non-tender Cardiovascular: normal rate, regular rhythm Respiratory/Chest: chest wall non-tender, lungs clear, normal breath sounds Abdomen: normal bowel sounds, non tender, soft, no organomegaly Edema: no edema noted Arm (L), no edema noted Arm (R), no edema noted Leg (L), no edema noted Leg (R), no edema noted Pedal (L), no edema noted Pedal (R), no edema noted Generalized Neurologic: alert Isaak Ledesma MD Mar 30, 2020 08:17
--- NOTE | 2020-03-30 08:30 | NUR ---
NURSE NOTES: LATE ENTRY: MD ROBLEDO HERE TO SEE PT. WAS INFORMED OF BRADYCARDIC EPISODE YESTERDAY DURING WEANING. CURRENTLY SINUS DAX. BP STABLE. OPENS EYES, DOES NOT FOLLOW OR TRACK. NO NEW ORDERS.
--- NOTE | 2020-03-30 08:32 | NUR ---
NURSE NOTES: Md Tucker here to see pt. pt secretions moderate. weaned yesterday, has low bradycardic episode requiring atropine push. will try again today when hr sustained above 60bpm.
--- NOTE | 2020-03-30 09:00 | NUR ---
RESPIRATORY NOTES Unable to wean PT at this time due to low heart rate - ~50bpm. Will attempt later, if heart rate increases above 60bpm. RN Tamika richard. Will continue to monitor.
[2020-03-30] MEDS: Lactulose 20gm/30ml UDC NG SCH ×3 (09:54→17:45)
[2020-03-30] MEDS: Multivitamins W/Minerals 15 ML UDC NG SCH (09:54)
[2020-03-30] MEDS: Zinc Sulfate 220mg NG SCH (09:55)
[2020-03-30] MEDS: Midodrine 10mg tab NG SCH ×3 (09:55→17:46)
[2020-03-30] MEDS: Pantoprazole Inj IVP SCH (09:55)
[2020-03-30] MEDS: Levofloxacin 750mg tab NG SCH (09:57)
[2020-03-30] MEDS: Ascorbic Acid 500mg tab NG SCH (09:58)
--- NOTE | 2020-03-30 10:00 | NUR ---
NURSE NOTES: D/C 1/2 NS AT 50ML/HR
[2020-03-30] MEDS: Heparin 5000 units/ml inj SUBQ SCH ×2 (10:02→20:47)
--- NOTE | 2020-03-30 10:08 | NUR ---
RD ASSESSMENT & RECOMMENDATIONS SEE CARE ACTIVITY FOR COMPLETE ASSESSMENT DAILY ESTIMATED NEEDS: Needs based on Wound, Critical care / 56kg 25-30 kcals/kg 6475-2422 total kcals 1.25-2 g protein/kg 70-112 g total protein 25-30 mL/kg 2932-8814 total fluid mLs NUTRITION DIAGNOSIS: * Swallowing difficulty R/T dysphagia as evidendced by [employer] w/ rec for NPO, now on NGT feeds, s/p respiratory failure, orally intubated in ICU. * Increased kcal/prot/micronutrients needs R/T wound healing as evidenced by pt admitted w/ multiple wounds including full thickness wound @ sacrum, DTPI wound @ L Gluteal cheek, and non-Blanchable erythema @ BL heels. CURRENT TF:Jevity 1.2 @ 55ml/hr x22 hrs ENTERAL NUTRITION RECOMMENDATIONS: Jevity 1.2 goal of 60ml/hr x22 hrs (HOLD 1 HR BEFORE AND AFTER SYNTHROID) to provide 1320ml, 1584 kcal, 73g pro, 1065ml free H2O - Rec increase goal rate to 60ml/hr to better meet est needs - Hold 1 hr before and after Synthroid med - flush per MD, HOB over 30 degrees Monitor BG and need for TF change to carb control formula. ADDITIONAL RECOMMENDATIONS: * Per SNF: HT=66" BB=417vbi (03/07/20) * Wound healing: continue MVI, Vit C, and ZnSO4 add TONI BID via NGT * Monitor lytes, replete as needed * Monitor BG, need for NISS w/ TF's .
--- NOTE | 2020-03-30 11:00 | NUR ---
NURSE NOTES: LATE ENTRY: MD. Anna Marie KOLB, HERE TO SEE PT. PT AFEBRILE. WBC 7.1, PLT 383CONTINUES TO WEAN DAILY. PICC DRY AND INTACT. WILL PLACE OWN ORDERS.
--- NOTE | 2020-03-30 11:08 | Infectious Diseases Prog Note ---
Assessment/Plan Assessment/Plan antibiotics : levoquin A 1. klebsiella pneumonia COVID 19 test negative x 2 2. respiratory failure 3. COPD 4. leucocytosis resolved 5. hypothyroidism 6. schizophrenia P 1. continue levoquin 4 more days 2, extubation planned 3. will follow up cultures Subjective ROS Limited/Unobtainable: Yes Allergies: Coded Allergies: PENICILLINS (Verified Allergy, Unknown, 03/11/20) Objective Vital Signs Last 24 Hour Vital Signs Date Time Temp Pulse Resp B/P (MAP) Pulse Ox O2 Delivery O2 Flow Rate FiO2 03/30/20 08:00 35 03/30/20 07:05 47 15 97 Mechanical Ventilator 35 47 15 35 03/30/20 07:00 53 16 156/100 (118) 96 03/30/20 06:30 53 14 03/30/20 06:00 59 20 161/104 (123) 99 03/30/20 05:00 48 14 145/98 (114) 96 03/30/20 04:00 Mechanical Ventilator 03/30/20 04:00 98.0 61 14 129/79 (96) 95 03/30/20 04:00 35 03/30/20 03:05 62 03/30/20 03:00 68 17 132/86 (101) 100 03/30/20 02:58 76 19 100 Mechanical Ventilator 35 77 19 35 03/30/20 02:00 65 15 112/76 (88) 100 03/30/20 01:00 61 14 120/74 (89) 99 03/30/20 00:00 35 03/30/20 00:00 78 03/30/20 00:00 Mechanical Ventilator 03/30/20 00:00 98.1 78 20 146/90 (108) 99 03/29/20 23:42 70 20 100 Mechanical Ventilator 35 70 20 35 03/29/20 23:00 62 15 119/63 (81) 100 03/29/20 22:00 55 14 120/63 (82) 100 03/29/20 21:00 53 14 115/65 (82) 100 03/29/20 20:00 97.9 54 14 122/66 (84) 100 03/29/20 20:00 35 03/29/20 20:00 Mechanical Ventilator 03/29/20 19:54 56 03/29/20 19:10 60 18 100 Mechanical Ventilator 35 62 17 35 03/29/20 19:00 51 14 119/58 (78) 100 03/29/20 18:00 50 14 114/65 (81) 100 03/29/20 17:00 76 18 128/63 (84) 100 03/29/20 16:00 Mechanical Ventilator 03/29/20 16:00 77 17 163/91 (115) 100 03/29/20 16:00 62 03/29/20 15:30 69 15 98 Mechanical Ventilator 35 67 16 35 03/29/20 15:00 76 14 149/85 (106) 100 03/29/20 14:31 35 03/29/20 14:27 98 03/29/20 14:00 45 14 130/75 (93) 98 03/29/20 13:00 98.8 46 17 154/79 (104) 98 03/29/20 12:00 35 03/29/20 12:00 Mechanical Ventilator 03/29/20 12:00 79 03/29/20 12:00 77 21 129/80 (96) 98 03/29/20 11:42 55 24 98 Mechanical Ventilator 35 60 24 35 Height (Feet): 5 Height (Inches): 5.00 Weight (Pounds): 144 HEENT: other - intubated Respiratory/Chest: lungs clear Cardiovascular: normal rate, regular rhythm, no gallop/murmur Abdomen: soft, non tender Extremities: no edema, other - left arm PICC Laboratory Tests Test 03/29/20 12:13 03/30/20 04:00 Arterial Blood pH 7.467 (7.350-7.450) Arterial Blood Partial Pressure CO2 41.4 mmHg (35.0-45.0) Arterial Blood Partial Pressure O2 88.8 mmHg (75.0-100.0) Arterial Blood HCO3 29.3 mmol/L (22.0-26.0) H Arterial Blood Oxygen Saturation 96.7 % (95-100) Arterial Blood Base Excess 5.1 (-2-2) H Keith Test Positive White Blood Count 7.1 K/UL (4.8-10.8) Red Blood Count 3.16 M/UL (4.20-5.40) L Hemoglobin 9.8 G/DL (12.0-16.0) L Hematocrit 30.1 % (37.0-47.0) L Mean Corpuscular Volume 95 FL (80-99) Mean Corpuscular Hemoglobin 31.1 PG (27.0-31.0) H Mean Corpuscular Hemoglobin Concent 32.7 G/DL (32.0-36.0) Red Cell Distribution Width 13.2 % (11.6-14.8) Platelet Count 383 K/UL (150-450) Mean Platelet Volume 7.3 FL (6.5-10.1) Neutrophils (%) (Auto) 77.7 % (45.0-75.0) H Lymphocytes (%) (Auto) 17.1 % (20.0-45.0) L Monocytes (%) (Auto) 4.5 % (1.0-10.0) Eosinophils (%) (Auto) 0.3 % (0.0-3.0) Basophils (%) (Auto) 0.5 % (0.0-2.0) Sodium Level 136 MMOL/L (136-145) Potassium Level 3.9 MMOL/L (3.5-5.1) Chloride Level 100 MMOL/L (98-107) Carbon Dioxide Level 32 MMOL/L (21-32) Anion Gap 5 mmol/L (5-15) Blood Urea Nitrogen 8 mg/dL (7-18) Creatinine 0.5 MG/DL (0.55-1.30) L Estimat Glomerular Filtration Rate > 60 mL/min (>60) Glucose Level 129 MG/DL (74-106) H Calcium Level 8.0 MG/DL (8.5-10.1) L Total Bilirubin 0.2 MG/DL (0.2-1.0) Aspartate Amino Transf (AST/SGOT) 13 U/L (15-37) L Alanine Aminotransferase (ALT/SGPT) 23 U/L (12-78) Alkaline Phosphatase 78 U/L (46-116) Total Protein 6.1 G/DL (6.4-8.2) L Albumin 1.7 G/DL (3.4-5.0) L Globulin 4.4 g/dL Albumin/Globulin Ratio 0.4 (1.0-2.7) L Current Medications Medications (Trade) Dose Ordered Sig/Ranjeet Route PRN Reason Start Time Stop Time Status Last Admin Dose Admin Acetaminophen (Tylenol) 650 mg Q4H PRN NG Mild Pain (1-3)/Fever > 100.5 03/22/20 15:30 04/10/20 19:29 Albuterol Sulfate (Proventil MDI) 2 puff Q4HRT INH 03/18/20 15:00 06/13/20 02:59 03/30/20 07:12 Ascorbic Acid (Vitamin C) 500 mg DAILY NG 03/23/20 09:00 04/11/20 08:59 03/30/20 09:58 Atropine Sulfate (Atropine) 1 mg Q1H PRN IVP HR <40BPM 03/18/20 13:30 04/17/20 13:29 03/29/20 14:26 Chlorhexidine Gluconate (Mary-Hex 2%) 1 applic DAILY@2000 TOPIC 03/21/20 20:00 06/19/20 19:59 03/29/20 19:53 Heparin Sodium (Porcine) (Heparin 5000 units/ml) 5,000 units EVERY 12 HOURS SUBQ 03/18/20 21:00 04/25/20 20:59 03/30/20 10:02 Lactulose (Cephulac) 30 gm THREE TIMES A DAY NG 03/22/20 18:00 04/18/20 09:14 03/30/20 09:54 Levofloxacin (Levaquin) 750 mg DAILY NG 03/29/20 10:30 04/05/20 10:29 03/30/20 09:57 Levothyroxine Sodium (Synthroid) 150 mcg DAILY@0630 ORAL 03/31/20 06:30 04/30/20 06:29 Loratadine (Claritin 10mg) 10 mg DAILY ORAL 03/23/20 09:00 04/11/20 08:59 03/30/20 09:55 Magnesium Hydroxide (Mom) 30 ml HSPRN PRN NG Constipation 03/22/20 15:30 04/17/20 13:59 Midodrine (Pro-Amatine) 10 mg THREE TIMES A DAY NG 03/24/20 13:00 06/21/20 08:59 03/30/20 09:55 Multivitamins (Multivitamins W/ Minerals 15ml Liquid) 15 ml DAILY NG 03/23/20 09:00 04/11/20 08:59 03/30/20 09:54 Norepinephrine Bitartrate 250 ml @ 0 mls/hr Q24H IV 03/23/20 14:52 06/21/20 14:51 Pantoprazole (Protonix) 40 mg DAILY IVP 03/23/20 09:00 04/22/20 08:59 03/30/20 09:55 Zinc Sulfate (Zinc Sulfate) 220 mg DAILY NG 03/23/20 09:00 06/10/20 08:59 03/30/20 09:55 Eh Bailey MD Mar 30, 2020 11:08
--- NOTE | 2020-03-30 11:20 | NUR ---
NURSE NOTES: LATE ENTRY: MD. TERRAZAS HERE TO SEE PT.
--- NOTE | 2020-03-30 11:49 | NUR ---
*-* INSURANCE *-* UPDATED CLINICALS AND REVIEWS HAVE BEEN FAXED TO: [facility] Ref# [id number] F: [phone]
--- NOTE | 2020-03-30 13:00 | NUR ---
NURSE NOTES: LATE ENTRY: PT REPOSITIONED. ETT 7.0, 23 CM AT LIP. VENT SETTINGS AC 14, VT 500, FI02 35%, PEEP 5.AZAR, DRAINING YELLOW URINE. BILATERAL RADIAL AND PEDAL PULSES WEAK. IV ACCESS YUMIKO PICC, TKO. PT AFEBRILE. PT ON P200 AIR MATTRESS. CONTACT PRECAUTIONS IN PLACE. BED LOCKED, IN LOW POSITION, SIDE RAILS UP X2. BED ALARM ON. WILL CONTINUE TO IMPLEMENT PLAN OF CARE.
--- NOTE | 2020-03-30 13:41 | Critical Care Progress Note ---
Assessment/Plan Assessment/Plan IMPRESSION: 1. COPD 2. Hypercapnia and hypoxemia. 3. Pneumonia,chcf 4. Hypothyroidism. 5. History of allergies. 6. Severe protein-calorie malnutrition. 7. Mild leukocytosis. 8. acute respiratory failure 9. pulmonary congestion care noted IV antibiotics/ all reviewed respiratory care as is reviewed changes; monitor secretions- discussed care Ventilatory support as is; weaning daily and reviewed monitor for CO2 retention and congestion maintain meds DVT prophylaxis; supportive care as is off load position change still with reduced LOC overall suction as needed; hope to avoid trach but may need airway aspiration precautions position change and off load oxygen therapy as is hope to extubate soon monitor nutrition medications/laboratory data/nursing notes/ICU care reviewed in detail note reviewed and edited care discussed with RN and RT ICU time spent >40 minutes Critical Care - Subjective ROS Limited/Unobtainable: Yes Condition: critical EKG Rhythm: Sinus Rhythm Residuals: minimal Tube Feeding Tolerated: yes I&O: Intake and Output 03/29/20 03/30/20 19:00 07:00 Intake Total 1010 ml 1260 ml Output Total 647 ml 930 ml Balance 363 ml 330 ml IV Total 600 ml 600 ml Tube Feeding 330 ml 660 ml Other 80 ml Output Urine Total 647 ml 930 ml # Bowel Movements 1 2 Critical Care - Objective ET-Tube: 7.0 ET Position: 23 Last 24 Hour Vital Signs Date Time Temp Pulse Resp B/P (MAP) Pulse Ox O2 Delivery O2 Flow Rate FiO2 03/30/20 13:00 62 21 157/117 (130) 96 03/30/20 12:00 49 03/30/20 12:00 98.4 59 14 135/85 (102) 98 03/30/20 12:00 Mechanical Ventilator 03/30/20 12:00 35 03/30/20 11:00 53 16 155/98 (117) 95 03/30/20 10:50 56 20 97 Mechanical Ventilator 35 47 15 35 03/30/20 10:00 55 14 142/90 (107) 98 03/30/20 09:00 58 15 131/91 (104) 100 03/30/20 08:00 35 03/30/20 08:00 Mechanical Ventilator 03/30/20 08:00 98.2 51 18 150/92 (111) 96 03/30/20 08:00 54 03/30/20 07:05 47 15 97 Mechanical Ventilator 35 47 15 35 03/30/20 07:00 53 16 156/100 (118) 96 03/30/20 06:30 53 14 03/30/20 06:00 59 20 161/104 (123) 99 03/30/20 05:00 48 14 145/98 (114) 96 03/30/20 04:00 Mechanical Ventilator 03/30/20 04:00 98.0 61 14 129/79 (96) 95 03/30/20 04:00 35 03/30/20 03:05 62 03/30/20 03:00 68 17 132/86 (101) 100 03/30/20 02:58 76 19 100 Mechanical Ventilator 35 77 19 35 03/30/20 02:00 65 15 112/76 (88) 100 03/30/20 01:00 61 14 120/74 (89) 99 03/30/20 00:00 35 03/30/20 00:00 78 03/30/20 00:00 Mechanical Ventilator 03/30/20 00:00 98.1 78 20 146/90 (108) 99 03/29/20 23:42 70 20 100 Mechanical Ventilator 35 70 20 35 03/29/20 23:00 62 15 119/63 (81) 100 03/29/20 22:00 55 14 120/63 (82) 100 03/29/20 21:00 53 14 115/65 (82) 100 03/29/20 20:00 97.9 54 14 122/66 (84) 100 03/29/20 20:00 35 03/29/20 20:00 Mechanical Ventilator 03/29/20 19:54 56 03/29/20 19:10 60 18 100 Mechanical Ventilator 35 62 17 35 03/29/20 19:00 51 14 119/58 (78) 100 03/29/20 18:00 50 14 114/65 (81) 100 03/29/20 17:00 76 18 128/63 (84) 100 03/29/20 16:00 Mechanical Ventilator 03/29/20 16:00 77 17 163/91 (115) 100 03/29/20 16:00 62 03/29/20 15:30 69 15 98 Mechanical Ventilator 35 67 16 35 03/29/20 15:00 76 14 149/85 (106) 100 03/29/20 14:31 35 03/29/20 14:27 98 03/29/20 14:00 45 14 130/75 (93) 98 Labs: Labs Test 03/28/20 03:00 03/29/20 04:00 03/29/20 12:13 03/30/20 04:00 Sodium Level 138 MMOL/L (136-145) 135 MMOL/L (136-145) 136 MMOL/L (136-145) Potassium Level 4.3 MMOL/L (3.5-5.1) 3.9 MMOL/L (3.5-5.1) 3.9 MMOL/L (3.5-5.1) Chloride Level 102 MMOL/L (98-107) 99 MMOL/L (98-107) 100 MMOL/L (98-107) Carbon Dioxide Level 29 MMOL/L (21-32) 30 MMOL/L (21-32) 32 MMOL/L (21-32) Anion Gap 7 mmol/L (5-15) 6 mmol/L (5-15) 5 mmol/L (5-15) Blood Urea Nitrogen 8 mg/dL (7-18) 10 mg/dL (7-18) 8 mg/dL (7-18) Creatinine 0.6 MG/DL (0.55-1.30) 0.6 MG/DL (0.55-1.30) 0.5 MG/DL (0.55-1.30) Estimat Glomerular Filtration Rate > 60 mL/min (>60) > 60 mL/min (>60) > 60 mL/min (>60) Glucose Level 117 MG/DL (74-106) 124 MG/DL (74-106) 129 MG/DL (74-106) Calcium Level 8.0 MG/DL (8.5-10.1) 8.1 MG/DL (8.5-10.1) 8.0 MG/DL (8.5-10.1) White Blood Count 7.4 K/UL (4.8-10.8) 7.1 K/UL (4.8-10.8) Red Blood Count 3.12 M/UL (4.20-5.40) 3.16 M/UL (4.20-5.40) Hemoglobin 9.7 G/DL (12.0-16.0) 9.8 G/DL (12.0-16.0) Hematocrit 29.9 % (37.0-47.0) 30.1 % (37.0-47.0) Mean Corpuscular Volume 96 FL (80-99) 95 FL (80-99) Mean Corpuscular Hemoglobin 31.0 PG (27.0-31.0) 31.1 PG (27.0-31.0) Mean Corpuscular Hemoglobin Concent 32.4 G/DL (32.0-36.0) 32.7 G/DL (32.0-36.0) Red Cell Distribution Width 13.4 % (11.6-14.8) 13.2 % (11.6-14.8) Platelet Count 370 K/UL (150-450) 383 K/UL (150-450) Mean Platelet Volume 8.0 FL (6.5-10.1) 7.3 FL (6.5-10.1) Neutrophils (%) (Auto) 77.7 % (45.0-75.0) 77.7 % (45.0-75.0) Lymphocytes (%) (Auto) 15.4 % (20.0-45.0) 17.1 % (20.0-45.0) Monocytes (%) (Auto) 5.7 % (1.0-10.0) 4.5 % (1.0-10.0) Eosinophils (%) (Auto) 0.3 % (0.0-3.0) 0.3 % (0.0-3.0) Basophils (%) (Auto) 0.9 % (0.0-2.0) 0.5 % (0.0-2.0) Total Bilirubin 0.2 MG/DL (0.2-1.0) 0.2 MG/DL (0.2-1.0) Aspartate Amino Transf (AST/SGOT) 15 U/L (15-37) 13 U/L (15-37) Alanine Aminotransferase (ALT/SGPT) 16 U/L (12-78) 23 U/L (12-78) Alkaline Phosphatase 79 U/L (46-116) 78 U/L (46-116) Total Protein 6.2 G/DL (6.4-8.2) 6.1 G/DL (6.4-8.2) Albumin 1.7 G/DL (3.4-5.0) 1.7 G/DL (3.4-5.0) Globulin 4.5 g/dL 4.4 g/dL Albumin/Globulin Ratio 0.4 (1.0-2.7) 0.4 (1.0-2.7) Arterial Blood pH 7.467 (7.350-7.450) Arterial Blood Partial Pressure CO2 41.4 mmHg (35.0-45.0) Arterial Blood Partial Pressure O2 88.8 mmHg (75.0-100.0) Arterial Blood HCO3 29.3 mmol/L (22.0-26.0) Arterial Blood Oxygen Saturation 96.7 % (95-100) Arterial Blood Base Excess 5.1 (-2-2) Keith Test Positive Objective: GENERAL: An ill-appearing female. NAD on Vent NECK: Supple. No adenopathy. LUNGS: Coarse breath sounds. Moderate air entry. ETT in place; no rhonchi or wheeze CARDIAC: S1, S2. Regular rate and rhythm without murmur. ABDOMEN: Soft, nontender, nondistended. feeding tube EXTREMITIES: No cyanosis, clubbing, or edema. reduced LOC but arouseable resting on the vent reviewed and edited Javier Blake MD Mar 30, 2020 13:41
[2020-03-30] MEDS: Norepinephrine 4mg/NS Premix 250 ML IV SCH (13:54)
--- NOTE | 2020-03-30 14:11 | NUR ---
CASE MANAGEMENT:REVIEW 03/30/20 SI:COPD. PNA. RESPIRATORY FAILURE~ORALLY INTUBATED. SPUTUM CX GRAM NEGATIVE BACILLUS . 98.4 59 14 135/85 98% MECH VENT FIO2 @ 35 H/H 9.8/30.1 BG 129 CA+ 8.0 ALB 1.7 IS:IV ATROPINE Q1HR/PRN NG LEVAQUIN QD IV NS @ 50ML/HR IV PROTONIX QD VIT C NGT QD ZINC SULFATE NGT QD PRO-AMATINE NG TID ALBUTEROL INH Q4HR HEPARIN SQ BID LACTULOSE NG TID HEPARIN SQ BID TUBE FEEDING \: ICU STATUS DCP:[facility] WHEN STABLE PLAN: WEANING TRAILS INCREASE SECRETION HOLD EXTUBATION - RE-EVAL IN AM SPUTUM CX IN PROCESS
--- NOTE | 2020-03-30 15:00 | NUR ---
NURSE NOTES: PT CLEANED, REPOSITIONED. ORAL CARE AND SUCTION PROVIDED. PT AFEBRILE. G-TUBE PATENT. NO RESIDUALS. PT SMALL BM, SOFT, BROWN. MEDICATION ADMINISTERED PER MD ORDERS.
--- NOTE | 2020-03-30 19:29 | NUR ---
HAND-OFF: Report given to NUHA Baez PT IN NO ACUTE DISTRESS.
[2020-03-30] MEDS: Dyna-Hex 2% Top Sol 2oz TOPIC SCH (19:40)
--- NOTE | 2020-03-30 19:45 | NUR ---
NURSE NOTES: LE: PATIENT AWOKE STATUS, OPEN EYES, FATIGUE, DID NOT FOLLOW COMMANDS, ON ETT TO VENT, AC 14/TV500/FIO2 35%/PEEP5, O2 SATURATION 100% NOTED, HR 70'S/MIN SR NOTED, OGT INTACT AND PATENT, ONGOING JEVITY 1.2 AT 55ML/HR, CHECKED RESIDUE 30ML OUTED, KEPT HOB 30 DEGREES AND ASPIRATION PRECAUTION, F/C INTACT AND PATENT, YELLOW URINE OUTED, PICC LINE TO LEFT UPPER ARM, INTACT AND PATENT, ON P200 BED, MADE LOWER BED POSITION, ON BED ALARM AND LOCKED, PLACED CALL LIGHT WITHIN REACH, WILL CONTINUE TO MONITOR.
--- NOTE | 2020-03-30 19:53 | Surgery Progress Note ---
Surgery Progress Note Subjective Additional Comments doing okay still with secretions unable to extubate yet labs noted exam stable Objective Last 24 Hour Vital Signs Date Time Temp Pulse Resp B/P (MAP) Pulse Ox O2 Delivery O2 Flow Rate FiO2 03/30/20 19:15 90 22 96 Mechanical Ventilator 35 84 18 35 03/30/20 19:00 78 18 124/83 (97) 96 03/30/20 18:00 75 18 115/75 (88) 97 03/30/20 17:00 58 14 130/82 (98) 100 03/30/20 16:38 63 14 157/105 (122) 100 03/30/20 16:00 87 03/30/20 16:00 35 03/30/20 16:00 Mechanical Ventilator 03/30/20 16:00 97.8 85 22 171/118 (135) 98 03/30/20 15:20 59 17 95 Mechanical Ventilator 35 59 17 35 03/30/20 15:00 66 21 156/103 (120) 98 03/30/20 14:00 71 14 142/94 (110) 97 03/30/20 13:00 62 21 157/117 (130) 96 03/30/20 12:00 49 03/30/20 12:00 98.4 59 14 135/85 (102) 98 03/30/20 12:00 Mechanical Ventilator 03/30/20 12:00 35 03/30/20 11:00 53 16 155/98 (117) 95 03/30/20 10:50 56 20 96 Mechanical Ventilator 35 56 20 35 03/30/20 10:00 55 14 142/90 (107) 98 03/30/20 09:00 58 15 131/91 (104) 100 03/30/20 08:00 35 03/30/20 08:00 Mechanical Ventilator 03/30/20 08:00 98.2 51 18 150/92 (111) 96 03/30/20 08:00 54 03/30/20 07:05 47 15 97 Mechanical Ventilator 35 47 15 35 03/30/20 07:00 53 16 156/100 (118) 96 03/30/20 06:30 53 14 03/30/20 06:00 59 20 161/104 (123) 99 03/30/20 05:00 48 14 145/98 (114) 96 03/30/20 04:00 Mechanical Ventilator 03/30/20 04:00 98.0 61 14 129/79 (96) 95 03/30/20 04:00 35 03/30/20 03:05 62 03/30/20 03:00 68 17 132/86 (101) 100 03/30/20 02:58 76 19 100 Mechanical Ventilator 35 77 19 35 03/30/20 02:00 65 15 112/76 (88) 100 03/30/20 01:00 61 14 120/74 (89) 99 03/30/20 00:00 35 03/30/20 00:00 78 03/30/20 00:00 Mechanical Ventilator 03/30/20 00:00 98.1 78 20 146/90 (108) 99 03/29/20 23:42 70 20 100 Mechanical Ventilator 35 70 20 35 03/29/20 23:00 62 15 119/63 (81) 100 03/29/20 22:00 55 14 120/63 (82) 100 03/29/20 21:00 53 14 115/65 (82) 100 03/29/20 20:00 97.9 54 14 122/66 (84) 100 03/29/20 20:00 35 03/29/20 20:00 Mechanical Ventilator 03/29/20 19:54 56 I&O Intake and Output 03/29/20 03/30/20 19:00 07:00 Intake Total 1010 ml 1260 ml Output Total 647 ml 930 ml Balance 363 ml 330 ml IV Total 600 ml 600 ml Tube Feeding 330 ml 660 ml Other 80 ml Output Urine Total 647 ml 930 ml # Bowel Movements 1 2 Dressing: other Wound: other Drains: other Cardiovascular: RSR Respiratory: decreased breath sounds Abdomen: soft, non-tender, present bowel sounds, non-distended Extremities: no edema, no tenderness, no cyanosis Laboratory Tests Test 03/30/20 04:00 White Blood Count 7.1 K/UL (4.8-10.8) Red Blood Count 3.16 M/UL (4.20-5.40) L Hemoglobin 9.8 G/DL (12.0-16.0) L Hematocrit 30.1 % (37.0-47.0) L Mean Corpuscular Volume 95 FL (80-99) Mean Corpuscular Hemoglobin 31.1 PG (27.0-31.0) H Mean Corpuscular Hemoglobin Concent 32.7 G/DL (32.0-36.0) Red Cell Distribution Width 13.2 % (11.6-14.8) Platelet Count 383 K/UL (150-450) Mean Platelet Volume 7.3 FL (6.5-10.1) Neutrophils (%) (Auto) 77.7 % (45.0-75.0) H Lymphocytes (%) (Auto) 17.1 % (20.0-45.0) L Monocytes (%) (Auto) 4.5 % (1.0-10.0) Eosinophils (%) (Auto) 0.3 % (0.0-3.0) Basophils (%) (Auto) 0.5 % (0.0-2.0) Sodium Level 136 MMOL/L (136-145) Potassium Level 3.9 MMOL/L (3.5-5.1) Chloride Level 100 MMOL/L (98-107) Carbon Dioxide Level 32 MMOL/L (21-32) Anion Gap 5 mmol/L (5-15) Blood Urea Nitrogen 8 mg/dL (7-18) Creatinine 0.5 MG/DL (0.55-1.30) L Estimat Glomerular Filtration Rate > 60 mL/min (>60) Glucose Level 129 MG/DL (74-106) H Calcium Level 8.0 MG/DL (8.5-10.1) L Total Bilirubin 0.2 MG/DL (0.2-1.0) Aspartate Amino Transf (AST/SGOT) 13 U/L (15-37) L Alanine Aminotransferase (ALT/SGPT) 23 U/L (12-78) Alkaline Phosphatase 78 U/L (46-116) Total Protein 6.1 G/DL (6.4-8.2) L Albumin 1.7 G/DL (3.4-5.0) L Globulin 4.4 g/dL Albumin/Globulin Ratio 0.4 (1.0-2.7) L Plan Problems: (1) Malnutrition Assessment & Plan: not eating enough TF started adv as tolerated bowel regimen DDAILY ESTIMATED NEEDS: Needs based on Wound, pulmonary / 56kg 25-35 kcals/kg 9668-0232 total kcals 1.25-1.8 g protein/kg 70-100 g total protein 25-30 mL/kg 3550-8318 total fluid mLs NUTRITION DIAGNOSIS: * Swallowing difficulty R/T dysphagia as evidenced by [employer] 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 * Increased kcal/prot/micronutrients needs R/T wound healing as evidenced by pt admitted w/ multiple wounds including full thickness wound @ sacrum, TPI wound @ L Gluteal cheek, and non-Blanchable erythema @ BL heels. CURRENT TF:Jevity 1.2 @30ml/hr ENTERAL NUTRITION RECOMMENDATIONS: JEVITY 1.2 goal of 55ml/hr x24 hrs to provide 1320ml, 1584 kcal, 73g pro, 1065ml free H2O - rec to INCREASE current TF as tolerated to goal of 55ml/hr to better meet est needs. - flush per CHRISTINA JONES over 30 degrees ADDITIONAL RECOMMENDATIONS: * Per SNF: HT=66" XO=074tek (03/07/20) * Wound healing: continue MVI, Vit C, and ZnSO4 * VIA NGT-> add TONI BID for wound care TF recs as above * Monitor lytes, replete as needed THIS 60 Y.O.M. WAS ADMITTED WITH ACUTE ISSUES - FEVER, HYPOXIC WITH LOW 02 SATS ON NON-REBREATHER, RESP RATE 18 BPM INITIALLY PER MEDICAL RECORD. PER RN, THE PATIENT HAD A RAPID RESPOSE THIS MORNING (DESAT TO 90S AND RAPID RESP RATE). H/O COPD, CARDIAC DZ, HYPOTHYROIDISM, HTN, ALLERGIC RHINITIS, SCHIZOPHRENIA (ON OLANZAPINE AT SNF), BASELINE NONVERBAL. PER POLST FULL TX BUT NO INFORMATION REGARDING TUBE FEEDING PREFERENCES. AT SNF ON A REGULAR DIET TEXTURE AND THIN LIQUIDS WITH PROSTAT SF DRINK WITH MEALS. NOW ON A REGULAR TEXTURE DIET AND THIN LIQUIDS BUT DID NOT TAKE ANY PO. PER LAURIE EARLY, THE PT UNABLE TO TAKE LARGE PILLS BUT APPEARED TO TOLERATE CRUSHED MEDS WITH APPLESAUCE W/O OVERT ASPIRATION. PATIENT SEEN WITH RTFUNMI. PER RT RESP RATE 22 BPM AND NOT ABLE TO ongoing unintelligible confabulations. Patient did request a sandwich, however, not appropriate for regular texture at this time. VITALS ON 2 L NASAL CANNULA: HR: 73; RR: 20; SP02: 95% Patient's oral hygiene is improving, ongoing poor speech intelligibility which appears to be more due to poor articulation precision/oral motor coordination versus 2/2 dry mouth. CXR on 03/14/20: Findings: Interim considerable improvement of previously demonstrated left lower lobe infiltrate. There is a residual disease in the retrocardiac region as well as generalized reticular interstitial opacities throughout the left mid and lower lung. There is questionably a 3 cm spiculated opacity projected over the apex. Minimal right mid and lower lung reticular opacities are also demonstrated. There is some right midlung atelectasis versus thickening of the minor fissure. The heart size is normal. The pleural spaces are clear Impression: Considerable improvement the persistence of previously demonstrated left mid and lower lung infiltrates, since prior study of 03/11/2020. [employer]SEM[employer]Y [employer] plans to continue to f/u and monitor Patients readiness for PO trials for diet texture upgrade. RN aware of recommendations, plan, and aspiration precautions sign posted above Patients HOB. RECOMMENDATIONS: 1. Continue Moist Puree with [place] Thick Liquids Diet via 1 to 1 careful handfeeding while implementing posted aspiration precautions - RD recommendations appreciated for diet texture/type 2. Patient requires oral hygiene BID + lip moisturizer. (2) Decubitus skin ulcer Assessment & Plan: Pt presented on admission with multiple pressure injuries. Full thickness Pressure injury Sacrococcygeal area. (L)4cm x (W)2.5cm. Base of wound is fatou with scattered slough ,which was easily removed with gentle friction. Wound is now fatou with 25% soft necrosis at distal base of wound. Small amt sanguineous exudate noted.No odor noted. Periwound erythematous and denuded. Two additional Pressure Injuries noted to R gluteal cheek.(Proximal) Base of wound is purple and indurated(L)3cm x (W)1.5cm. Surrounding erythematous and denuded skin (Distal) R gluteus(L)1.4cm x (W)0.6cm. Base of wound is purple, indurated with surrounding erythematous and denuded skin. DTPI L Gluteal cheek (L)1.5cm x (W)1.3cm. Base of wound is indurated, purple with surrounding non-blanching erythema. Additional scattered areas that are maroon in colour noted to L gluteal cheek. Lateral L Heel boggy with non-blanching erythema with delineated margins. (L) 4cm x (W)4.5cm. Lateral R Heel Boggy with non-Blanchable erythema with delineated margins(L) 2.5cm x (W)2.5cm. Tx.Plan: Cleanse Sacrococcygeal area with saline. Apply TheraHoney , Apply Moisture Barrier Paste to Sacrum, R and L Buttocks. Cover entire Area with Optifoam drsgs. Change every 3 days and prn. Apply Moisture Barrier Paste to R and L Buttocks . Cover with Optifoam drsgs. Changee very 3 days and prn. Apply Cavilon Skin Barrier to R and L Trochanteric areas. Cover with Optifoam drsg. Change every 7 days and prn. Apply Cavilon Skin Barrier to R and L Heels. Cover each heel with Optifoam drsg. Change every 7 days and prn. Reposition at least every 2hours or as tolerated. Off-load heels with Pillow. APM/ERIK Mattress. (3) Pneumonia Assessment & Plan: Lungs: There is mild left lower lobe infiltrate consistent with pneumonia. Pleural space: Unremarkable. No pneumothorax. Heart: The heart size is at the upper limits of normal. Mediastinum: Unremarkable. Bones/joints: Unremarkable. IMPRESSION: There is mild left lower lobe infiltrate consistent with pneumonia. worsening on bipap now will monitor closely intubated now 03/21 wean vent Continue weaning. Will hopefully be extubated potentially. Gases noted. (4) COPD (chronic obstructive pulmonary disease) Assessment & Plan: On vent support weaning Potential extubation soon (5) Fever Eddie Perez Mar 30, 2020 19:53
--- NOTE | 2020-03-30 22:05 | NUR ---
NURSE NOTES: SUCTIONED, ORAL CARE WAS DONE, VSS, WILL CONTINUE TO MONITOR.
--- NOTE | 2020-03-30 22:12 | General Progress Note ---
Assessment/Plan Status: stable, progressing Assessment/Plan: Assessment - Resp failure - weaning - dysphagia, NGT dependent - COPD - Anemia - leukocytosis - improved - hypothyroid Recommendations - pulmonary f/u - NGT feeds - elevate HOB - follow labs and exam - PEG placement once stabilized Subjective Allergies: Coded Allergies: PENICILLINS (Verified Allergy, Unknown, 03/11/20) Subjective Above noted seen in ICU on vent tolerating NGT feeds Objective Last 24 Hour Vital Signs Date Time Temp Pulse Resp B/P (MAP) Pulse Ox O2 Delivery O2 Flow Rate FiO2 03/30/20 22:00 71 15 117/78 (91) 97 03/30/20 21:00 77 16 122/85 (97) 100 03/30/20 20:00 98.6 62 15 132/84 (100) 95 03/30/20 20:00 35 03/30/20 20:00 Mechanical Ventilator 03/30/20 19:21 75 03/30/20 19:15 90 22 96 Mechanical Ventilator 35 84 18 35 03/30/20 19:00 78 18 124/83 (97) 96 03/30/20 18:00 75 18 115/75 (88) 97 03/30/20 17:00 58 14 130/82 (98) 100 03/30/20 16:38 63 14 157/105 (122) 100 03/30/20 16:00 87 03/30/20 16:00 35 03/30/20 16:00 Mechanical Ventilator 03/30/20 16:00 97.8 85 22 171/118 (135) 98 03/30/20 15:20 59 17 95 Mechanical Ventilator 35 59 17 35 03/30/20 15:00 66 21 156/103 (120) 98 03/30/20 14:00 71 14 142/94 (110) 97 03/30/20 13:00 62 21 157/117 (130) 96 03/30/20 12:00 49 03/30/20 12:00 98.4 59 14 135/85 (102) 98 03/30/20 12:00 Mechanical Ventilator 03/30/20 12:00 35 03/30/20 11:00 53 16 155/98 (117) 95 03/30/20 10:50 56 20 96 Mechanical Ventilator 35 56 20 35 03/30/20 10:00 55 14 142/90 (107) 98 03/30/20 09:00 58 15 131/91 (104) 100 03/30/20 08:00 35 03/30/20 08:00 Mechanical Ventilator 03/30/20 08:00 98.2 51 18 150/92 (111) 96 03/30/20 08:00 54 03/30/20 07:05 47 15 97 Mechanical Ventilator 35 47 15 35 03/30/20 07:00 53 16 156/100 (118) 96 03/30/20 06:30 53 14 03/30/20 06:00 59 20 161/104 (123) 99 03/30/20 05:00 48 14 145/98 (114) 96 03/30/20 04:00 Mechanical Ventilator 03/30/20 04:00 98.0 61 14 129/79 (96) 95 03/30/20 04:00 35 03/30/20 03:05 62 03/30/20 03:00 68 17 132/86 (101) 100 03/30/20 02:58 76 19 100 Mechanical Ventilator 35 77 19 35 03/30/20 02:00 65 15 112/76 (88) 100 03/30/20 01:00 61 14 120/74 (89) 99 03/30/20 00:00 35 03/30/20 00:00 78 03/30/20 00:00 Mechanical Ventilator 03/30/20 00:00 98.1 78 20 146/90 (108) 99 03/29/20 23:42 70 20 100 Mechanical Ventilator 35 70 20 35 03/29/20 23:00 62 15 119/63 (81) 100 Intake and Output 03/29/20 03/30/20 19:00 07:00 Intake Total 1010 ml 1260 ml Output Total 647 ml 930 ml Balance 363 ml 330 ml IV Total 600 ml 600 ml Tube Feeding 330 ml 660 ml Other 80 ml Output Urine Total 647 ml 930 ml # Bowel Movements 1 2 Laboratory Tests 03/30/20 04:00: White Blood Count 7.1, Red Blood Count 3.16L, Hemoglobin 9.8L, Hematocrit 30.1L , Mean Corpuscular Volume 95, Mean Corpuscular Hemoglobin 31.1H, Mean Corpuscular Hemoglobin Concent 32.7, Red Cell Distribution Width 13.2, Platelet Count 383, Mean Platelet Volume 7.3, Neutrophils (%) (Auto) 77.7H, Lymphocytes ( %) (Auto) 17.1L, Monocytes (%) (Auto) 4.5, Eosinophils (%) (Auto) 0.3, Basophils (%) (Auto) 0.5, Sodium Level 136, Potassium Level 3.9, Chloride Level 100, Carbon Dioxide Level 32, Anion Gap 5, Blood Urea Nitrogen 8, Creatinine 0.5L, Estimat Glomerular Filtration Rate > 60, Glucose Level 129H, Calcium Level 8.0L, Total Bilirubin 0.2, Aspartate Amino Transf (AST/SGOT) 13L, Alanine Aminotransferase (ALT/SGPT) 23, Alkaline Phosphatase 78, Total Protein 6.1L, Albumin 1.7L, Globulin 4.4, Albumin/Globulin Ratio 0.4L Height (Feet): 5 Height (Inches): 5.00 Weight (Pounds): 144 Objective Thin WW NCAT (+) ETT supple coarse BS RR abd soft NT ND no edema Douglas Tucker MD Mar 30, 2020 22:12
--- NOTE | 2020-03-30 23:16 | General Progress Note ---
Assessment/Plan Status: stable, progressing Assessment/Plan: Assessment - Resp failure - weaning - dysphagia - COPD - Anemia - leukocytosis - improved - hypothyroid Recommendations - pulmonary f/u - Tube feeds - elevate HOB - follow labs and exam - PEG placement once stabilized Subjective Allergies: Coded Allergies: PENICILLINS (Verified Allergy, Unknown, 03/11/20) Subjective Above noted seen in ICU on vent tolerating tube feeds Objective Last 24 Hour Vital Signs Date Time Temp Pulse Resp B/P (MAP) Pulse Ox O2 Delivery O2 Flow Rate FiO2 03/30/20 22:39 67 17 97 Mechanical Ventilator 35 69 25 35 03/30/20 22:00 71 15 117/78 (91) 97 03/30/20 21:00 77 16 122/85 (97) 100 03/30/20 20:00 98.6 62 15 132/84 (100) 95 03/30/20 20:00 35 03/30/20 20:00 Mechanical Ventilator 03/30/20 19:21 75 03/30/20 19:15 90 22 96 Mechanical Ventilator 35 84 18 35 03/30/20 19:00 78 18 124/83 (97) 96 03/30/20 18:00 75 18 115/75 (88) 97 03/30/20 17:00 58 14 130/82 (98) 100 03/30/20 16:38 63 14 157/105 (122) 100 03/30/20 16:00 87 03/30/20 16:00 35 03/30/20 16:00 Mechanical Ventilator 03/30/20 16:00 97.8 85 22 171/118 (135) 98 03/30/20 15:20 59 17 95 Mechanical Ventilator 35 59 17 35 03/30/20 15:00 66 21 156/103 (120) 98 03/30/20 14:00 71 14 142/94 (110) 97 03/30/20 13:00 62 21 157/117 (130) 96 03/30/20 12:00 49 03/30/20 12:00 98.4 59 14 135/85 (102) 98 03/30/20 12:00 Mechanical Ventilator 03/30/20 12:00 35 03/30/20 11:00 53 16 155/98 (117) 95 03/30/20 10:50 56 20 96 Mechanical Ventilator 35 56 20 35 03/30/20 10:00 55 14 142/90 (107) 98 03/30/20 09:00 58 15 131/91 (104) 100 03/30/20 08:00 35 03/30/20 08:00 Mechanical Ventilator 03/30/20 08:00 98.2 51 18 150/92 (111) 96 03/30/20 08:00 54 03/30/20 07:05 47 15 97 Mechanical Ventilator 35 47 15 35 03/30/20 07:00 53 16 156/100 (118) 96 03/30/20 06:30 53 14 03/30/20 06:00 59 20 161/104 (123) 99 03/30/20 05:00 48 14 145/98 (114) 96 03/30/20 04:00 Mechanical Ventilator 03/30/20 04:00 98.0 61 14 129/79 (96) 95 03/30/20 04:00 35 03/30/20 03:05 62 03/30/20 03:00 68 17 132/86 (101) 100 03/30/20 02:58 76 19 100 Mechanical Ventilator 35 77 19 35 03/30/20 02:00 65 15 112/76 (88) 100 03/30/20 01:00 61 14 120/74 (89) 99 03/30/20 00:00 35 03/30/20 00:00 78 03/30/20 00:00 Mechanical Ventilator 03/30/20 00:00 98.1 78 20 146/90 (108) 99 03/29/20 23:42 70 20 100 Mechanical Ventilator 35 70 20 35 Intake and Output 03/29/20 03/30/20 19:00 07:00 Intake Total 1010 ml 1260 ml Output Total 647 ml 930 ml Balance 363 ml 330 ml IV Total 600 ml 600 ml Tube Feeding 330 ml 660 ml Other 80 ml Output Urine Total 647 ml 930 ml # Bowel Movements 1 2 Laboratory Tests 03/30/20 04:00: White Blood Count 7.1, Red Blood Count 3.16L, Hemoglobin 9.8L, Hematocrit 30.1L , Mean Corpuscular Volume 95, Mean Corpuscular Hemoglobin 31.1H, Mean Corpuscular Hemoglobin Concent 32.7, Red Cell Distribution Width 13.2, Platelet Count 383, Mean Platelet Volume 7.3, Neutrophils (%) (Auto) 77.7H, Lymphocytes ( %) (Auto) 17.1L, Monocytes (%) (Auto) 4.5, Eosinophils (%) (Auto) 0.3, Basophils (%) (Auto) 0.5, Sodium Level 136, Potassium Level 3.9, Chloride Level 100, Carbon Dioxide Level 32, Anion Gap 5, Blood Urea Nitrogen 8, Creatinine 0.5L, Estimat Glomerular Filtration Rate > 60, Glucose Level 129H, Calcium Level 8.0L, Total Bilirubin 0.2, Aspartate Amino Transf (AST/SGOT) 13L, Alanine Aminotransferase (ALT/SGPT) 23, Alkaline Phosphatase 78, Total Protein 6.1L, Albumin 1.7L, Globulin 4.4, Albumin/Globulin Ratio 0.4L Height (Feet): 5 Height (Inches): 5.00 Weight (Pounds): 144 Objective Thin WW NCAT (+) ETT supple coarse BS RR abd soft NT ND no edema Douglas Tucker MD Mar 30, 2020 23:16
[2020-03-31] VITALS (45 sets, daily range): BP systolic 61–178; BP diastolic 46–113
--- NOTE | 2020-03-31 00:03 | NUR ---
NURSE NOTES: PATIENT ASLEEP STATUS, VSS, NO PAIN OR SOB NOTED, WILL CONTINUE TO MONITOR.
--- NOTE | 2020-03-31 02:21 | NUR ---
NURSE NOTES: REPOSITIONED, ORAL CARE WAS DONE, WILL CONTINUE PLAN OF CARE.
[2020-03-31] MEDS: Albuterol 90mcg Inhaler 8gm INH SCH ×6 (03:04→23:20)
--- NOTE | 2020-03-31 03:50 | NUR ---
NURSE NOTES: MORNING CARE AND ORAL CARE WAS DONE.
--- NOTE | 2020-03-31 06:20 | NUR ---
NURSE NOTES: NO ACUTE DISTRESS NOTED AT THIS SHIFT.
--- NOTE | 2020-03-31 07:23 | NUR ---
HAND-OFF: Report given to SHARATH WILDER.
--- NOTE | 2020-03-31 07:33 | NUR ---
NURSE NOTES: Dr. bee updated of patient progress at this time, made aware no morning labs were drawn and will place order for the following morning am labs, no additional orders given at this time.
--- NOTE | 2020-03-31 07:33 | General Progress Note ---
Assessment/Plan Status: stable, progressing Assessment/Plan: Assessment/Plan Status: stable, progressing Assessment/Plan: Assessment - Resp failure - weaning - dysphagia - COPD - Anemia - leukocytosis - improved - hypothyroid Recommendations - pulmonary f/u - Tube feeds - elevate HOB - follow labs and exam - PEG placement once stabilized Subjective ROS Limited/Unobtainable: No Allergies: Coded Allergies: PENICILLINS (Verified Allergy, Unknown, 03/11/20) Objective Last 24 Hour Vital Signs Date Time Temp Pulse Resp B/P (MAP) Pulse Ox O2 Delivery O2 Flow Rate FiO2 03/31/20 07:00 59 14 143/86 (105) 100 03/31/20 06:47 50 14 100 Mechanical Ventilator 35 51 15 35 03/31/20 06:30 58 14 03/31/20 06:00 57 14 135/84 (101) 100 03/31/20 05:00 56 14 132/87 (102) 100 03/31/20 04:00 98.3 43 15 156/91 (112) 97 03/31/20 04:00 Mechanical Ventilator 03/31/20 04:00 35 03/31/20 03:37 58 03/31/20 03:04 47 14 100 Mechanical Ventilator 35 45 14 35 03/31/20 03:00 49 14 152/93 (112) 97 03/31/20 02:00 87 15 174/109 (130) 99 03/31/20 01:00 59 20 164/98 (120) 97 03/31/20 00:00 70 03/31/20 00:00 98.0 70 14 138/92 (107) 100 03/31/20 00:00 35 03/31/20 00:00 Mechanical Ventilator 03/30/20 23:00 66 14 139/86 (103) 100 03/30/20 22:39 67 17 97 Mechanical Ventilator 35 69 25 35 03/30/20 22:00 71 15 117/78 (91) 97 03/30/20 21:00 77 16 122/85 (97) 100 03/30/20 20:00 98.6 62 15 132/84 (100) 95 03/30/20 20:00 35 03/30/20 20:00 Mechanical Ventilator 03/30/20 19:21 75 03/30/20 19:15 90 22 96 Mechanical Ventilator 35 84 18 35 03/30/20 19:00 78 18 124/83 (97) 96 03/30/20 18:00 75 18 115/75 (88) 97 03/30/20 17:00 58 14 130/82 (98) 100 03/30/20 16:38 63 14 157/105 (122) 100 03/30/20 16:00 87 03/30/20 16:00 35 03/30/20 16:00 Mechanical Ventilator 03/30/20 16:00 97.8 85 22 171/118 (135) 98 03/30/20 15:20 59 17 95 Mechanical Ventilator 35 59 17 35 03/30/20 15:00 66 21 156/103 (120) 98 03/30/20 14:00 71 14 142/94 (110) 97 03/30/20 13:00 62 21 157/117 (130) 96 03/30/20 12:00 49 03/30/20 12:00 98.4 59 14 135/85 (102) 98 03/30/20 12:00 Mechanical Ventilator 03/30/20 12:00 35 03/30/20 11:00 53 16 155/98 (117) 95 03/30/20 10:50 56 20 96 Mechanical Ventilator 35 56 20 35 03/30/20 10:00 55 14 142/90 (107) 98 03/30/20 09:00 58 15 131/91 (104) 100 03/30/20 08:00 35 03/30/20 08:00 Mechanical Ventilator 03/30/20 08:00 98.2 51 18 150/92 (111) 96 03/30/20 08:00 54 Intake and Output 03/30/20 03/31/20 19:00 07:00 Intake Total 805 ml 710 ml Output Total 900 ml 950 ml Balance -95 ml -240 ml IV Total 100 ml Tube Feeding 660 ml 660 ml Other 45 ml 50 ml Output Urine Total 900 ml 950 ml Height (Feet): 5 Height (Inches): 5.00 Weight (Pounds): 126 General Appearance: lethargic EENT: normal ENT inspection Neck: supple Cardiovascular: normal rate Respiratory/Chest: decreased breath sounds Abdomen: normal bowel sounds, non tender, soft Extremities: non-tender Ronnie Brennan MD Mar 31, 2020 07:33
[2020-03-31] MEDS ORDERED: Sodium Phosphate 30 MM in NS 275 ML IVPB ONE (07:45)
--- NOTE | 2020-03-31 08:55 | NUR ---
NURSE NOTES: Patient started on weaning with setting of CPAP, PS of 8, FIO2 of 35%, Peep of 5, Patient remains saturating at 100% with no distress noted having volumes of approximately 440ml per breath. patient remains breathing at rate of14-19 breaths per minutes, Chest X-ray was taken with results pending.
--- NOTE | 2020-03-31 09:11 | Diagnostic Imaging Report ---
EXAM: XR Chest, 1 View CLINICAL HISTORY: SOB TECHNIQUE: Frontal view of the chest. COMPARISON: March 27, 2020. FINDINGS: Support lines and tubes are stable. Cardiac silhouette and pulmonary vascularity are within normal limits. Improved aeration of the left lung base. No pleural effusions. IMPRESSION: Improved aeration of the left lung base. No pleural effusions.
--- NOTE | 2020-03-31 09:17 | Surgery Progress Note ---
Surgery Progress Note Subjective Additional Comments looks better no n/v/f/c labs and abg noted imaging reviewed on weaning doing well will discuss with pulm for extubation secretions improved Objective Last 24 Hour Vital Signs Date Time Temp Pulse Resp B/P (MAP) Pulse Ox O2 Delivery O2 Flow Rate FiO2 03/31/20 08:55 56 19 35 35 03/31/20 07:00 59 14 143/86 (105) 100 03/31/20 06:47 50 14 100 Mechanical Ventilator 35 51 15 35 03/31/20 06:30 58 14 03/31/20 06:00 57 14 135/84 (101) 100 03/31/20 05:00 56 14 132/87 (102) 100 03/31/20 04:00 98.3 43 15 156/91 (112) 97 03/31/20 04:00 Mechanical Ventilator 03/31/20 04:00 35 03/31/20 03:37 58 03/31/20 03:04 47 14 100 Mechanical Ventilator 35 45 14 35 03/31/20 03:00 49 14 152/93 (112) 97 03/31/20 02:00 87 15 174/109 (130) 99 03/31/20 01:00 59 20 164/98 (120) 97 03/31/20 00:00 70 03/31/20 00:00 98.0 70 14 138/92 (107) 100 03/31/20 00:00 35 03/31/20 00:00 Mechanical Ventilator 03/30/20 23:00 66 14 139/86 (103) 100 03/30/20 22:39 67 17 97 Mechanical Ventilator 35 69 25 35 03/30/20 22:00 71 15 117/78 (91) 97 03/30/20 21:00 77 16 122/85 (97) 100 03/30/20 20:00 98.6 62 15 132/84 (100) 95 03/30/20 20:00 35 03/30/20 20:00 Mechanical Ventilator 03/30/20 19:21 75 03/30/20 19:15 90 22 96 Mechanical Ventilator 35 84 18 35 03/30/20 19:00 78 18 124/83 (97) 96 03/30/20 18:00 75 18 115/75 (88) 97 03/30/20 17:00 58 14 130/82 (98) 100 03/30/20 16:38 63 14 157/105 (122) 100 03/30/20 16:00 87 03/30/20 16:00 35 03/30/20 16:00 Mechanical Ventilator 03/30/20 16:00 97.8 85 22 171/118 (135) 98 03/30/20 15:20 59 17 95 Mechanical Ventilator 35 59 17 35 03/30/20 15:00 66 21 156/103 (120) 98 03/30/20 14:00 71 14 142/94 (110) 97 03/30/20 13:00 62 21 157/117 (130) 96 03/30/20 12:00 49 03/30/20 12:00 98.4 59 14 135/85 (102) 98 03/30/20 12:00 Mechanical Ventilator 03/30/20 12:00 35 03/30/20 11:00 53 16 155/98 (117) 95 03/30/20 10:50 56 20 96 Mechanical Ventilator 35 56 20 35 03/30/20 10:00 55 14 142/90 (107) 98 I&O Intake and Output 03/30/20 03/31/20 19:00 07:00 Intake Total 805 ml 710 ml Output Total 900 ml 950 ml Balance -95 ml -240 ml IV Total 100 ml Tube Feeding 660 ml 660 ml Other 45 ml 50 ml Output Urine Total 900 ml 950 ml Dressing: other Wound: other Drains: other Cardiovascular: RSR Respiratory: decreased breath sounds Abdomen: soft, non-tender, present bowel sounds Extremities: no cyanosis Plan Problems: (1) Malnutrition Assessment & Plan: not eating enough TF started adv as tolerated bowel regimen DDAILY ESTIMATED NEEDS: Needs based on Wound, pulmonary / 56kg 25-35 kcals/kg 9526-6326 total kcals 1.25-1.8 g protein/kg 70-100 g total protein 25-30 mL/kg 1247-3552 total fluid mLs NUTRITION DIAGNOSIS: * Swallowing difficulty R/T dysphagia as evidenced by WARDROBE COORDINATOR w/ rec for NPO, now on NGT feeds. * Increased kcal/prot/micronutrients needs R/T wound healing as evidenced by pt admitted w/ multiple wounds including full thickness wound @ sacrum, TPI wound @ L Gluteal cheek, and non-Blanchable erythema @ BL heels. CURRENT TF:Jevity 1.2 @30ml/hr ENTERAL NUTRITION RECOMMENDATIONS: JEVITY 1.2 goal of 55ml/hr x24 hrs to provide 1320ml, 1584 kcal, 73g pro, 1065ml free H2O - rec to INCREASE current TF as tolerated to goal of 55ml/hr to better meet est needs. - flush per CHRISTINA JONES over 30 degrees ADDITIONAL RECOMMENDATIONS: * Per SNF: HT=66" QO=138let (03/07/20) * Wound healing: continue MVI, Vit C, and ZnSO4 * VIA NGT-> add TONI BID for wound care TF recs as above * Monitor lytes, replete as needed THIS 60 Y.O.M. WAS ADMITTED WITH ACUTE ISSUES - FEVER, HYPOXIC WITH LOW 02 SATS ON NON-REBREATHER, RESP RATE 18 BPM INITIALLY PER MEDICAL RECORD. PER RN, THE PATIENT HAD A RAPID RESPOSE THIS MORNING (DESAT TO 90S AND RAPID RESP RATE). H/O COPD, CARDIAC DZ, HYPOTHYROIDISM, HTN, ALLERGIC RHINITIS, SCHIZOPHRENIA (ON OLANZAPINE AT SNF), BASELINE NONVERBAL. PER POLST FULL TX BUT NO INFORMATION REGARDING TUBE FEEDING PREFERENCES. AT SNF ON A REGULAR DIET TEXTURE AND THIN LIQUIDS WITH PROSTAT SF DRINK WITH MEALS. NOW ON A REGULAR TEXTURE DIET AND THIN LIQUIDS BUT DID NOT TAKE ANY PO. PER LAURIE EARLY, THE PT UNABLE TO TAKE LARGE PILLS BUT APPEARED TO TOLERATE CRUSHED MEDS WITH APPLESAUCE W/O OVERT ASPIRATION. PATIENT SEEN WITH FUNMI HEATH. PER RT RESP RATE 22 BPM AND NOT ABLE TO ongoing unintelligible confabulations. Patient did request a sandwich, however, not appropriate for regular texture at this time. VITALS ON 2 L NASAL CANNULA: HR: 73; RR: 20; SP02: 95% Patient's oral hygiene is improving, ongoing poor speech intelligibility which appears to be more due to poor articulation precision/oral motor coordination versus 2/2 dry mouth. CXR on 03/14/20: Findings: Interim considerable improvement of previously demonstrated left lower lobe infiltrate. There is a residual disease in the retrocardiac region as well as generalized reticular interstitial opacities throughout the left mid and lower lung. There is questionably a 3 cm spiculated opacity projected over the apex. Minimal right mid and lower lung reticular opacities are also demonstrated. There is some right midlung atelectasis versus thickening of the minor fissure. The heart size is normal. The pleural spaces are clear Impression: Considerable improvement the persistence of previously demonstrated left mid and lower lung infiltrates, since prior study of 03/11/2020. WARDROBE COORDINATOR plans to continue to f/u and monitor Patients readiness for PO trials for diet texture upgrade. RN aware of recommendations, plan, and aspiration precautions sign posted above Patients HOB. RECOMMENDATIONS: 1. Continue Moist Puree with [place] Thick Liquids Diet via 1 to 1 careful handfeeding while implementing posted aspiration precautions - RD recommendations appreciated for diet texture/type 2. Patient requires oral hygiene BID + lip moisturizer. (2) Decubitus skin ulcer Assessment & Plan: Pt presented on admission with multiple pressure injuries. Full thickness Pressure injury Sacrococcygeal area. (L)4cm x (W)2.5cm. Base of wound is fatou with scattered slough ,which was easily removed with gentle friction. Wound is now fatou with 25% soft necrosis at distal base of wound. Small amt sanguineous exudate noted.No odor noted. Periwound erythematous and denuded. Two additional Pressure Injuries noted to R gluteal cheek.(Proximal) Base of wound is purple and indurated(L)3cm x (W)1.5cm. Surrounding erythematous and denuded skin (Distal) R gluteus(L)1.4cm x (W)0.6cm. Base of wound is purple, indurated with surrounding erythematous and denuded skin. DTPI L Gluteal cheek (L)1.5cm x (W)1.3cm. Base of wound is indurated, purple with surrounding non-blanching erythema. Additional scattered areas that are maroon in colour noted to L gluteal cheek. Lateral L Heel boggy with non-blanching erythema with delineated margins. (L) 4cm x (W)4.5cm. Lateral R Heel Boggy with non-Blanchable erythema with delineated margins(L) 2.5cm x (W)2.5cm. Tx.Plan: Cleanse Sacrococcygeal area with saline. Apply TheraHoney , Apply Moisture Barrier Paste to Sacrum, R and L Buttocks. Cover entire Area with Optifoam drsgs. Change every 3 days and prn. Apply Moisture Barrier Paste to R and L Buttocks . Cover with Optifoam drsgs. Changee very 3 days and prn. Apply Cavilon Skin Barrier to R and L Trochanteric areas. Cover with Optifoam drsg. Change every 7 days and prn. Apply Cavilon Skin Barrier to R and L Heels. Cover each heel with Optifoam drsg. Change every 7 days and prn. Reposition at least every 2hours or as tolerated. Off-load heels with Pillow. APM/ERIK Mattress. (3) Pneumonia Assessment & Plan: Lungs: There is mild left lower lobe infiltrate consistent with pneumonia. Pleural space: Unremarkable. No pneumothorax. Heart: The heart size is at the upper limits of normal. Mediastinum: Unremarkable. Bones/joints: Unremarkable. IMPRESSION: There is mild left lower lobe infiltrate consistent with pneumonia. worsening on bipap now will monitor closely intubated now 03/21 wean vent Continue weaning. Will hopefully be extubated potentially. Gases noted. (4) COPD (chronic obstructive pulmonary disease) Assessment & Plan: On vent support weaning Potential extubation soon (5) Fever MunirEddie naranjo Mar 31, 2020 09:17
[2020-03-31] MEDS: Lactulose 20gm/30ml UDC NG SCH ×3 (09:20→18:00)
[2020-03-31] MEDS: Pantoprazole Inj IVP SCH (09:20)
[2020-03-31] MEDS: Multivitamins W/Minerals 15 ML UDC NG SCH (09:20)
[2020-03-31] MEDS: Levofloxacin 750mg tab NG SCH (09:20)
[2020-03-31] MEDS: Midodrine 10mg tab NG SCH ×3 (09:20→18:00)
[2020-03-31] MEDS: Ascorbic Acid 500mg tab NG SCH (09:20)
[2020-03-31] MEDS: Zinc Sulfate 220mg NG SCH (09:20)
[2020-03-31] MEDS: Heparin 5000 units/ml inj SUBQ SCH ×2 (09:21→21:00)
--- NOTE | 2020-03-31 09:38 | Critical Care Progress Note ---
Assessment/Plan Assessment/Plan IMPRESSION: 1. COPD 2. Hypercapnia and hypoxemia. 3. Pneumonia,shelter 4. Hypothyroidism. 5. History of allergies. 6. Severe protein-calorie malnutrition. 7. Mild leukocytosis. 8. acute respiratory failure 9. pulmonary congestion care noted IV antibiotics/ all reviewed respiratory care as is reviewed changes; monitor secretions- discussed care Ventilatory support as is; weaning daily and reviewed monitor for CO2 retention and congestion maintain meds DVT prophylaxis; supportive care as is off load position change still with reduced LOC overall suction as needed; hope to avoid trach but may need airway aspiration precautions position change and off load oxygen therapy as is hope to extubate soon monitor nutrition medications/laboratory data/nursing notes/ICU care reviewed in detail note reviewed and edited care discussed with RN and RT ICU time spent >40 minutes Critical Care - Subjective Interval Events: remains ill poorly responsive on vent in ICU ROS Limited/Unobtainable: Yes Condition: critical EKG Rhythm: Sinus Rhythm Residuals: minimal Tube Feeding Tolerated: yes I&O: Intake and Output 03/30/20 03/31/20 19:00 07:00 Intake Total 805 ml 710 ml Output Total 900 ml 950 ml Balance -95 ml -240 ml IV Total 100 ml Tube Feeding 660 ml 660 ml Other 45 ml 50 ml Output Urine Total 900 ml 950 ml Critical Care - Objective ET-Tube: 7.0 ET Position: 23 Last 24 Hour Vital Signs Date Time Temp Pulse Resp B/P (MAP) Pulse Ox O2 Delivery O2 Flow Rate FiO2 03/31/20 08:55 56 19 35 35 03/31/20 07:00 59 14 143/86 (105) 100 03/31/20 06:47 50 14 100 Mechanical Ventilator 35 51 15 35 03/31/20 06:30 58 14 03/31/20 06:00 57 14 135/84 (101) 100 03/31/20 05:00 56 14 132/87 (102) 100 03/31/20 04:00 98.3 43 15 156/91 (112) 97 03/31/20 04:00 Mechanical Ventilator 03/31/20 04:00 35 03/31/20 03:37 58 03/31/20 03:04 47 14 100 Mechanical Ventilator 35 45 14 35 03/31/20 03:00 49 14 152/93 (112) 97 03/31/20 02:00 87 15 174/109 (130) 99 03/31/20 01:00 59 20 164/98 (120) 97 03/31/20 00:00 70 03/31/20 00:00 98.0 70 14 138/92 (107) 100 03/31/20 00:00 35 03/31/20 00:00 Mechanical Ventilator 03/30/20 23:00 66 14 139/86 (103) 100 03/30/20 22:39 67 17 97 Mechanical Ventilator 35 69 25 35 03/30/20 22:00 71 15 117/78 (91) 97 03/30/20 21:00 77 16 122/85 (97) 100 03/30/20 20:00 98.6 62 15 132/84 (100) 95 03/30/20 20:00 35 03/30/20 20:00 Mechanical Ventilator 03/30/20 19:21 75 03/30/20 19:15 90 22 96 Mechanical Ventilator 35 84 18 35 03/30/20 19:00 78 18 124/83 (97) 96 03/30/20 18:00 75 18 115/75 (88) 97 03/30/20 17:00 58 14 130/82 (98) 100 03/30/20 16:38 63 14 157/105 (122) 100 03/30/20 16:00 87 03/30/20 16:00 35 03/30/20 16:00 Mechanical Ventilator 03/30/20 16:00 97.8 85 22 171/118 (135) 98 03/30/20 15:20 59 17 95 Mechanical Ventilator 35 59 17 35 03/30/20 15:00 66 21 156/103 (120) 98 03/30/20 14:00 71 14 142/94 (110) 97 03/30/20 13:00 62 21 157/117 (130) 96 03/30/20 12:00 49 03/30/20 12:00 98.4 59 14 135/85 (102) 98 03/30/20 12:00 Mechanical Ventilator 03/30/20 12:00 35 03/30/20 11:00 53 16 155/98 (117) 95 03/30/20 10:50 56 20 96 Mechanical Ventilator 35 56 20 35 03/30/20 10:00 55 14 142/90 (107) 98 Labs: Labs Test 03/29/20 04:00 03/29/20 12:13 03/30/20 04:00 White Blood Count 7.4 K/UL (4.8-10.8) 7.1 K/UL (4.8-10.8) Red Blood Count 3.12 M/UL (4.20-5.40) 3.16 M/UL (4.20-5.40) Hemoglobin 9.7 G/DL (12.0-16.0) 9.8 G/DL (12.0-16.0) Hematocrit 29.9 % (37.0-47.0) 30.1 % (37.0-47.0) Mean Corpuscular Volume 96 FL (80-99) 95 FL (80-99) Mean Corpuscular Hemoglobin 31.0 PG (27.0-31.0) 31.1 PG (27.0-31.0) Mean Corpuscular Hemoglobin Concent 32.4 G/DL (32.0-36.0) 32.7 G/DL (32.0-36.0) Red Cell Distribution Width 13.4 % (11.6-14.8) 13.2 % (11.6-14.8) Platelet Count 370 K/UL (150-450) 383 K/UL (150-450) Mean Platelet Volume 8.0 FL (6.5-10.1) 7.3 FL (6.5-10.1) Neutrophils (%) (Auto) 77.7 % (45.0-75.0) 77.7 % (45.0-75.0) Lymphocytes (%) (Auto) 15.4 % (20.0-45.0) 17.1 % (20.0-45.0) Monocytes (%) (Auto) 5.7 % (1.0-10.0) 4.5 % (1.0-10.0) Eosinophils (%) (Auto) 0.3 % (0.0-3.0) 0.3 % (0.0-3.0) Basophils (%) (Auto) 0.9 % (0.0-2.0) 0.5 % (0.0-2.0) Sodium Level 135 MMOL/L (136-145) 136 MMOL/L (136-145) Potassium Level 3.9 MMOL/L (3.5-5.1) 3.9 MMOL/L (3.5-5.1) Chloride Level 99 MMOL/L (98-107) 100 MMOL/L (98-107) Carbon Dioxide Level 30 MMOL/L (21-32) 32 MMOL/L (21-32) Anion Gap 6 mmol/L (5-15) 5 mmol/L (5-15) Blood Urea Nitrogen 10 mg/dL (7-18) 8 mg/dL (7-18) Creatinine 0.6 MG/DL (0.55-1.30) 0.5 MG/DL (0.55-1.30) Estimat Glomerular Filtration Rate > 60 mL/min (>60) > 60 mL/min (>60) Glucose Level 124 MG/DL (74-106) 129 MG/DL (74-106) Calcium Level 8.1 MG/DL (8.5-10.1) 8.0 MG/DL (8.5-10.1) Total Bilirubin 0.2 MG/DL (0.2-1.0) 0.2 MG/DL (0.2-1.0) Aspartate Amino Transf (AST/SGOT) 15 U/L (15-37) 13 U/L (15-37) Alanine Aminotransferase (ALT/SGPT) 16 U/L (12-78) 23 U/L (12-78) Alkaline Phosphatase 79 U/L (46-116) 78 U/L (46-116) Total Protein 6.2 G/DL (6.4-8.2) 6.1 G/DL (6.4-8.2) Albumin 1.7 G/DL (3.4-5.0) 1.7 G/DL (3.4-5.0) Globulin 4.5 g/dL 4.4 g/dL Albumin/Globulin Ratio 0.4 (1.0-2.7) 0.4 (1.0-2.7) Arterial Blood pH 7.467 (7.350-7.450) Arterial Blood Partial Pressure CO2 41.4 mmHg (35.0-45.0) Arterial Blood Partial Pressure O2 88.8 mmHg (75.0-100.0) Arterial Blood HCO3 29.3 mmol/L (22.0-26.0) Arterial Blood Oxygen Saturation 96.7 % (95-100) Arterial Blood Base Excess 5.1 (-2-2) Keith Test Positive Objective: GENERAL: An ill-appearing female. NAD on Vent NECK: Supple. No adenopathy. LUNGS: Coarse breath sounds. Moderate air entry. ETT in place; no rhonchi or wheeze CARDIAC: S1, S2. Regular rate and rhythm without murmur. ABDOMEN: Soft, nontender, nondistended. feeding tube EXTREMITIES: No cyanosis, clubbing, or edema. reduced LOC but arouseable resting on the vent reviewed and edited Javier Blake MD Mar 31, 2020 09:38
--- NOTE | 2020-03-31 09:53 | NUR ---
NURSE NOTES: Dr. Bailey updated of patient progress at the bedside and remaining with no temperature this morning at 97.7 F taken axillary. no verbal orders given at this time.
--- NOTE | 2020-03-31 10:47 | Infectious Diseases Prog Note ---
Assessment/Plan Assessment/Plan antibiotics : levoquin A 1. klebsiella pneumonia COVID 19 test negative x 2 2. respiratory failure 3. COPD 4. leucocytosis resolved 5. hypothyroidism 6. schizophrenia P 1. continue levoquin 3 more days 2, extubation planned 3. will follow up cultures Subjective ROS Limited/Unobtainable: Yes Allergies: Coded Allergies: PENICILLINS (Verified Allergy, Unknown, 03/11/20) Objective Last 24 Hour Vital Signs Date Time Temp Pulse Resp B/P (MAP) Pulse Ox O2 Delivery O2 Flow Rate FiO2 03/31/20 10:40 63 20 100 Mechanical Ventilator 35 62 20 35 35 03/31/20 10:00 60 18 160/95 (116) 100 03/31/20 09:00 55 17 152/88 (109) 100 03/31/20 08:55 56 19 35 35 03/31/20 08:00 70 03/31/20 08:00 97.7 61 14 133/85 (101) 100 03/31/20 08:00 Mechanical Ventilator 03/31/20 08:00 35 03/31/20 07:00 59 14 143/86 (105) 100 03/31/20 06:47 50 14 100 Mechanical Ventilator 35 51 15 35 03/31/20 06:30 58 14 03/31/20 06:00 57 14 135/84 (101) 100 03/31/20 05:00 56 14 132/87 (102) 100 03/31/20 04:00 98.3 43 15 156/91 (112) 97 03/31/20 04:00 Mechanical Ventilator 03/31/20 04:00 35 03/31/20 03:37 58 03/31/20 03:04 47 14 100 Mechanical Ventilator 35 45 14 35 03/31/20 03:00 49 14 152/93 (112) 97 03/31/20 02:00 87 15 174/109 (130) 99 03/31/20 01:00 59 20 164/98 (120) 97 03/31/20 00:00 70 03/31/20 00:00 98.0 70 14 138/92 (107) 100 03/31/20 00:00 35 03/31/20 00:00 Mechanical Ventilator 03/30/20 23:00 66 14 139/86 (103) 100 03/30/20 22:39 67 17 97 Mechanical Ventilator 35 69 25 35 03/30/20 22:00 71 15 117/78 (91) 97 03/30/20 21:00 77 16 122/85 (97) 100 03/30/20 20:00 98.6 62 15 132/84 (100) 95 03/30/20 20:00 35 03/30/20 20:00 Mechanical Ventilator 03/30/20 19:21 75 03/30/20 19:15 90 22 96 Mechanical Ventilator 35 84 18 35 03/30/20 19:00 78 18 124/83 (97) 96 03/30/20 18:00 75 18 115/75 (88) 97 03/30/20 17:00 58 14 130/82 (98) 100 03/30/20 16:38 63 14 157/105 (122) 100 03/30/20 16:00 87 03/30/20 16:00 35 03/30/20 16:00 Mechanical Ventilator 03/30/20 16:00 97.8 85 22 171/118 (135) 98 03/30/20 15:20 59 17 95 Mechanical Ventilator 35 59 17 35 03/30/20 15:00 66 21 156/103 (120) 98 03/30/20 14:00 71 14 142/94 (110) 97 03/30/20 13:00 62 21 157/117 (130) 96 03/30/20 12:00 49 03/30/20 12:00 98.4 59 14 135/85 (102) 98 03/30/20 12:00 Mechanical Ventilator 03/30/20 12:00 35 03/30/20 11:00 53 16 155/98 (117) 95 03/30/20 10:50 56 20 96 Mechanical Ventilator 35 56 20 35 Height (Feet): 5 Height (Inches): 5.00 Weight (Pounds): 126 HEENT: other - intubated Current Medications Medications (Trade) Dose Ordered Sig/Ranjeet Route PRN Reason Start Time Stop Time Status Last Admin Dose Admin Acetaminophen (Tylenol) 650 mg Q4H PRN NG Mild Pain (1-3)/Fever > 100.5 03/22/20 15:30 04/10/20 19:29 Albuterol Sulfate (Proventil MDI) 2 puff Q4HRT INH 03/18/20 15:00 06/13/20 02:59 03/31/20 10:42 Ascorbic Acid (Vitamin C) 500 mg DAILY NG 03/23/20 09:00 04/11/20 08:59 03/31/20 09:20 Atropine Sulfate (Atropine) 1 mg Q1H PRN IVP HR <40BPM 03/18/20 13:30 04/17/20 13:29 03/29/20 14:26 Chlorhexidine Gluconate (Mary-Hex 2%) 1 applic DAILY@2000 TOPIC 03/21/20 20:00 06/19/20 19:59 03/30/20 19:40 Heparin Sodium (Porcine) (Heparin 5000 units/ml) 5,000 units EVERY 12 HOURS SUBQ 03/18/20 21:00 04/25/20 20:59 03/31/20 09:21 Lactulose (Cephulac) 30 gm THREE TIMES A DAY NG 03/22/20 18:00 04/18/20 09:14 03/31/20 09:20 Levofloxacin (Levaquin) 750 mg DAILY NG 03/29/20 10:30 04/05/20 10:29 03/31/20 09:20 Levothyroxine Sodium (Synthroid) 150 mcg DAILY@0630 ORAL 03/31/20 06:30 04/30/20 06:29 03/31/20 05:47 Loratadine (Claritin 10mg) 10 mg DAILY ORAL 03/23/20 09:00 04/11/20 08:59 03/31/20 09:19 Magnesium Hydroxide (Mom) 30 ml HSPRN PRN NG Constipation 03/22/20 15:30 04/17/20 13:59 Midodrine (Pro-Amatine) 10 mg THREE TIMES A DAY NG 03/24/20 13:00 06/21/20 08:59 03/31/20 09:20 Multivitamins (Multivitamins W/ Minerals 15ml Liquid) 15 ml DAILY NG 03/23/20 09:00 04/11/20 08:59 03/31/20 09:20 Norepinephrine Bitartrate 250 ml @ 0 mls/hr Q24H IV 03/23/20 14:52 06/21/20 14:51 Pantoprazole (Protonix) 40 mg DAILY IVP 03/23/20 09:00 04/22/20 08:59 03/31/20 09:20 Zinc Sulfate (Zinc Sulfate) 220 mg DAILY NG 03/23/20 09:00 06/10/20 08:59 03/31/20 09:20 Eh Bailey MD Mar 31, 2020 10:47
--- NOTE | 2020-03-31 12:38 | NUR ---
RESPIRATORY NOTE: Extubated per DR orders. Placed on 2L NC. No stridor noted. SHARATH Martinez informed and SHARATH Tapia witnessed.
--- NOTE | 2020-03-31 13:10 | NUR ---
NURSE NOTES: Patient suctioned through the nose for thick secretions noted at the back of throat, RT suctioned patient as well clearing thick benitez secretions, as well. OG-tube remains in place and running Jevity 1.2 at 55ml/hr.
[2020-03-31] MEDS: Norepinephrine 4mg/NS Premix 250 ML IV SCH ×2 (14:52→18:19)
[2020-03-31] MEDS: Atropine Inj 1mg/10ml Syr IVP PRN (14:58)
--- NOTE | 2020-03-31 16:40 | NUR ---
NURSE NOTES: Dr. Ledesma called to order clonidine 0.1mg po q4hrs for systolic Bp greater than 160, dose administered for BP of 188/83.
--- NOTE | 2020-03-31 17:59 | NUR ---
RESPIRATORY NOTE: Pt was non responsive and gasping for breaths. code blue was initiated. bagging and compressions were performed. Pt successfully reintubated with ET tube 7.5 @ 23 at the lip. Placed back on previous vent settings per verbal orders. Alarms are on and audible vent is connected to red outlet and ambu bag at bed side. Will continue to monitor.
--- NOTE | 2020-03-31 18:00 | Emergency Room Report ---
Physical Exam Called for Code Blue to ICU. Patient was extubated this afternoon. A physician came out of the room saying the patient was not responsive. Staff found the patient with sinus bradycardia without pulses. Epinephrine and atropine were given. Chest compressions were begun. When I arrived the patient's breathing was assisted with a bag valve mask by respiratory. She was not breathing on her own at that time. Pulse oximeter was not registering at that time. When I entered the room the patient had pulses. Last 24 Hour Vital Signs Date Time Temp Pulse Resp B/P (MAP) Pulse Ox O2 Delivery O2 Flow Rate FiO2 03/31/20 17:51 139 14 70 03/31/20 17:41 139 14 70 03/31/20 16:45 188/83 03/31/20 16:00 97.8 82 22 178/106 (130) 93 03/31/20 16:00 Nasal Cannula 2.0 03/31/20 16:00 81 03/31/20 15:00 131 21 165/113 (130) 92 03/31/20 14:52 173/110 03/31/20 14:49 67 18 96 Nasal Cannula 2.0 28 03/31/20 14:48 55 16 96 Nasal Cannula 2.0 28 03/31/20 14:00 71 18 173/110 (131) 95 03/31/20 13:00 76 19 152/99 (116) 96 03/31/20 12:42 96 Nasal Cannula 2.0 28 03/31/20 12:36 Nasal Cannula 2.0 28 03/31/20 12:30 2.0 03/31/20 12:00 35 03/31/20 12:00 Mechanical Ventilator 03/31/20 12:00 98.3 77 21 149/87 (107) 98 03/31/20 12:00 86 03/31/20 11:00 63 20 136/88 (104) 99 03/31/20 10:40 63 20 100 Mechanical Ventilator 35 62 20 35 35 03/31/20 10:00 60 18 160/95 (116) 100 03/31/20 09:00 55 17 152/88 (109) 100 03/31/20 08:55 56 19 35 35 03/31/20 08:00 70 03/31/20 08:00 97.7 61 14 133/85 (101) 100 03/31/20 08:00 Mechanical Ventilator 03/31/20 08:00 35 03/31/20 07:00 59 14 143/86 (105) 100 03/31/20 06:47 50 14 100 Mechanical Ventilator 35 51 15 35 03/31/20 06:30 58 14 03/31/20 06:00 57 14 135/84 (101) 100 03/31/20 05:00 56 14 132/87 (102) 100 03/31/20 04:00 98.3 43 15 156/91 (112) 97 03/31/20 04:00 Mechanical Ventilator 03/31/20 04:00 35 03/31/20 03:37 58 03/31/20 03:04 47 14 100 Mechanical Ventilator 35 45 14 35 03/31/20 03:00 49 14 152/93 (112) 97 03/31/20 02:00 87 15 174/109 (130) 99 03/31/20 01:00 59 20 164/98 (120) 97 03/31/20 00:00 70 03/31/20 00:00 98.0 70 14 138/92 (107) 100 03/31/20 00:00 35 03/31/20 00:00 Mechanical Ventilator 03/30/20 23:00 66 14 139/86 (103) 100 03/30/20 22:39 67 17 97 Mechanical Ventilator 35 69 25 35 03/30/20 22:00 71 15 117/78 (91) 97 03/30/20 21:00 77 16 122/85 (97) 100 03/30/20 20:00 98.6 62 15 132/84 (100) 95 03/30/20 20:00 35 03/30/20 20:00 Mechanical Ventilator 03/30/20 19:21 75 03/30/20 19:15 90 22 96 Mechanical Ventilator 35 84 18 35 03/30/20 19:00 78 18 124/83 (97) 96 03/30/20 18:00 75 18 115/75 (88) 97 Sp02 EP Interpretation: reviewed, abnormal General Appearance: other - unresponsive Eyes: bilateral eye Scleral Injection ENT: moist mucus membranes - Poor dentition Neck: other - Flaccid Respiratory: decreased breath sounds Cardiovascular #1: bradycardia Cardiovascular #2: 2+ femoral (R) Gastrointestinal: abnormal bowel sounds Musculoskeletal: other Neurologic: other - Unresponsive Psychiatric: other - Unresponsive Skin: mottled, other - cool and cyanotic CPR/Code Blue CPR/Code Blue Narrative Code start 1716 Epi given 1717 and 1720. Atropine given 1722. Pulses restored after atropine. Sat 60% initially. With my data control assistant ventilations ioana to 68%. I elected to immediately intubate the patient at that time. Intubated Heart rate 135 with good pulses. Patient returned to ventilator, chest x-ray ordered and requested blood gas also on the ventilator. Intubation Intubation : Consent: Emergent Intubation Method: orotracheal Tube Size (cm): 7.5 - 23 teeth Medications: Other - none Breath Sounds after Intubation: equal Intubation Complications: no complications Post Intubation Xray: Yes Attempts: One Patient Tolerated: Well Complications: None Medical Decision Making Diagnostic Impression: Primary Impression: Respiratory failure Qualified Codes: J96.01 - Acute respiratory failure with hypoxia; J96.02 - Acute respiratory failure with hypercapnia Additional Impression: Cardiopulmonary arrest ER Course Patient was extubated earlier. She was found to be unresponsive. See CODE BLUE report and intubation note. Return of spontaneous circulation successful. Chest x-ray with bilateral infiltrates and COPD. Nursing staff state copious secretions. Prognosis guarded. Laboratory Tests Test 03/30/20 04:00 03/31/20 11:30 03/31/20 17:25 White Blood Count 7.1 K/UL (4.8-10.8) Red Blood Count 3.16 M/UL (4.20-5.40) L Hemoglobin 9.8 G/DL (12.0-16.0) L Hematocrit 30.1 % (37.0-47.0) L Mean Corpuscular Volume 95 FL (80-99) Mean Corpuscular Hemoglobin 31.1 PG (27.0-31.0) H Mean Corpuscular Hemoglobin Concent 32.7 G/DL (32.0-36.0) Red Cell Distribution Width 13.2 % (11.6-14.8) Platelet Count 383 K/UL (150-450) Mean Platelet Volume 7.3 FL (6.5-10.1) Neutrophils (%) (Auto) 77.7 % (45.0-75.0) H Lymphocytes (%) (Auto) 17.1 % (20.0-45.0) L Monocytes (%) (Auto) 4.5 % (1.0-10.0) Eosinophils (%) (Auto) 0.3 % (0.0-3.0) Basophils (%) (Auto) 0.5 % (0.0-2.0) Sodium Level 136 MMOL/L (136-145) Potassium Level 3.9 MMOL/L (3.5-5.1) Chloride Level 100 MMOL/L (98-107) Carbon Dioxide Level 32 MMOL/L (21-32) Anion Gap 5 mmol/L (5-15) Blood Urea Nitrogen 8 mg/dL (7-18) Creatinine 0.5 MG/DL (0.55-1.30) L Estimated Glomerular Filtration Rate > 60 mL/min (>60) Glucose Level 129 MG/DL (74-106) H Calcium Level 8.0 MG/DL (8.5-10.1) L Total Bilirubin 0.2 MG/DL (0.2-1.0) Aspartate Amino Transferase (AST) 13 U/L (15-37) L Alanine Aminotransferase (ALT) 23 U/L (12-78) Alkaline Phosphatase 78 U/L (46-116) Total Protein 6.1 G/DL (6.4-8.2) L Albumin 1.7 G/DL (3.4-5.0) L Globulin 4.4 g/dL Albumin/Globulin Ratio 0.4 (1.0-2.7) L Arterial Blood pH 7.490 (7.350-7.450) Arterial Blood Partial Pressure CO2 35.4 mmHg (35.0-45.0) Arterial Blood Partial Pressure O2 109.0 mmHg (75.0-100.0) H Arterial Blood HCO3 26.4 mmol/L (22.0-26.0) H Arterial Blood Oxygen Saturation 97.8 % (95-100) Arterial Blood Base Excess 3.1 (-2-2) H Keith Test Positive POC Whole Blood Glucose Pending Rhythm Strip Diag. Results EP Interpretation: yes Rhythm: no PVC's, no ectopy, other - ST Chest X-Ray Diagnostic Results Chest X-Ray Diagnostic Results : Chest X-Ray Ordered: Yes # of Views/Limited/Complete: 1 View Indication: Other EP Interpretation: Yes Interpretation: no effusion, other - COPD with bilateral infiltrates endotracheal tube in good position and NG tube in stomach Impression: Other Electronically Signed by: Electronically signed by Juan Cerna MD Last Vital Signs Date Time Temp Pulse Resp B/P (MAP) Pulse Ox O2 Delivery O2 Flow Rate FiO2 03/31/20 19:25 88 14 97 Mechanical Ventilator 70 88 14 70 03/31/20 19:00 126/97 (107) 03/31/20 16:00 97.8 03/31/20 16:00 2.0 Status: improved Disposition: ADMITTED INPATIENT Condition: Critical Referrals: NON PHYSICIAN (PCP) Juan Cerna MD Mar 31, 2020 18:00
--- NOTE | 2020-03-31 18:05 | NUR ---
NURSE NOTES: patient re-intubated after code blue after found to be gasping for air and heart rate decreased. See code blue sheet.
--- NOTE | 2020-03-31 18:30 | NUR ---
NURSE NOTES: NG-tube placed on the left nares at approximately 68-69cm. et-tube placement awaiting for verification from chest X-ray with tube at 23cm.
--- NOTE | 2020-03-31 18:43 | Diagnostic Imaging Report ---
EXAM: XR Chest, 1 View CLINICAL HISTORY: S/P INTUB TECHNIQUE: Frontal view of the chest. COMPARISON: Same-day 9 hours prior. FINDINGS: Lungs: Similar to minimally increased ill-defined left lower lobe as well as right medial base opacities which could represent multifocal infectious or inflammatory processes, interstitial pulmonary edema, without or with some component of atelectasis. Pleural space: Unremarkable. No pneumothorax. Heart: Unremarkable. No cardiomegaly. Mediastinum: Unremarkable. Bones/joints: Unremarkable. Tubes, lines and devices: ETT 3.7 cm above matteo. Enteric tube with tip and proximal sideport below the gastroesophageal junction. Other findings: If there is further concern, consider CT. IMPRESSION: 1. ETT 3.7 cm above matteo. 2. Enteric tube with tip and proximal sideport below the gastroesophageal junction. 3. Similar to minimally increased ill-defined left lower lobe as well as right medial base opacities which could represent multifocal infectious or inflammatory processes, interstitial pulmonary edema, without or with some component of atelectasis. 4. If there is further concern, consider CT.
--- NOTE | 2020-03-31 18:44 | Diagnostic Imaging Report ---
EXAM: XR Abdomen, 2 Views CLINICAL HISTORY: NGT TECHNIQUE: Frontal view of the abdomen/pelvis with upright view of the abdomen. COMPARISON: 03/26/2020 FINDINGS: Intraperitoneal space: No free air. Gastrointestinal tract: Intervally substantially more dilated gas- filled large bowel loops which could represent ileus or obstruction. Bones/joints: See dedicated chest imaging for further discussion of chest findings. Degenerative spine findings. Tubes, lines and devices: Enteric tube with tip and proximal sideport below the gastroesophageal junction. IMPRESSION: 1. Enteric tube with tip and proximal sideport below the gastroesophageal junction. 2. See dedicated chest imaging for further discussion of chest findings. 3. Intervally substantially more dilated gas-filled large bowel loops which could represent ileus or obstruction.
--- NOTE | 2020-03-31 19:25 | NUR ---
HAND-OFF: Report given to SHARATH Reyes. chest x-ray confirms placement of et-tube at 23cm
--- NOTE | 2020-03-31 19:30 | NUR ---
NURSE NOTES: Received report from SHARATH Martinez. Pt is resting on the bed and lethargic and no response. Pt has ETT and orally intubated. Vent dependent and setting with AC: 14, T: 500, P:5, FiO2 70% and SaO2 94-95% noted. Given endotracheal and oral suction. On dredge pumper with SR and HR: 78's. skin is cold to touch. Apply Sofia hugger. Patient has Lt. upper arm PICC line and dressing is clean and dry. On running with Levophed drip @ 10mcg/min. Pt has Lainez cath and patent and yellowish urine urinated. No sign of pain by FLACC scale. Pt has Lt. nares NG tube. ABD X-ray result is pending. Dressing is clean and dry on wound area. On P-200 mattress for wound management. Placed fall precaution. Will continue to care plan.
--- NOTE | 2020-03-31 19:37 | General Progress Note ---
Assessment/Plan Problem List: (1) COPD (chronic obstructive pulmonary disease) ICD Codes: J44.9 - Chronic obstructive pulmonary disease, unspecified SNOMED: 52593171 Qualifiers: Qualified Codes: J44.9 - Chronic obstructive pulmonary disease, unspecified (2) Pneumonia ICD Codes: J18.9 - Pneumonia, unspecified organism SNOMED: 762378842 Qualifiers: Qualified Codes: J18.9 - Pneumonia, unspecified organism (3) Fever ICD Codes: R50.9 - Fever, unspecified SNOMED: 514001027 Status: stable, progressing Assessment/Plan: vent support resp rx and suctioning wean per pulm iv abx per id follow up labs ivf oral synthroid dc iv tube feeds monitor labs skin care turn q2 critical and guarded Subjective Time patient seen: 07:30 ROS Limited/Unobtainable: Yes Constitutional: Reports: weakness HEENT: Reports: no symptoms Cardiovascular: Reports: no symptoms Respiratory: Reports: shortness of breath, sputum Gastrointestinal/Abdominal: Reports: difficulty swallowing Genitourinary: Reports: no symptoms Neurologic/Psychiatric: Reports: pre-existing deficit Endocrine: Reports: no symptoms Hematologic/Lymphatic: Reports: no symptoms Allergies: Coded Allergies: PENICILLINS (Verified Allergy, Unknown, 03/11/20) All Systems: reviewed and negative except above Subjective remains intubated. off pressors. no fevers. calm. labs reviewed. tolerating feeds. currently weaning. some bradycardia. Objective Last 24 Hour Vital Signs Date Time Temp Pulse Resp B/P (MAP) Pulse Ox O2 Delivery O2 Flow Rate FiO2 03/31/20 19:25 88 14 97 Mechanical Ventilator 70 88 14 70 03/31/20 19:00 86 14 126/97 (107) 98 03/31/20 18:55 88 14 129/100 (110) 97 03/31/20 18:50 88 14 132/100 (111) 96 03/31/20 18:45 85 14 117/84 (95) 93 03/31/20 18:40 86 14 81/59 (66) 92 03/31/20 18:35 93 14 81/61 (68) 93 03/31/20 18:30 107 14 91/69 (76) 96 03/31/20 18:25 120 14 118/88 (98) 98 03/31/20 18:20 131 14 82/61 (68) 96 03/31/20 18:19 61/46 03/31/20 18:15 133 14 61/46 (51) 92 03/31/20 18:10 136 14 68/54 (59) 93 03/31/20 18:00 136 14 68/54 (59) 91 03/31/20 17:51 139 14 70 03/31/20 17:50 70 03/31/20 17:41 139 14 70 03/31/20 17:00 138 15 108/71 (83) 91 03/31/20 16:45 188/83 03/31/20 16:00 97.8 82 22 178/106 (130) 93 03/31/20 16:00 Nasal Cannula 2.0 03/31/20 16:00 81 03/31/20 15:00 131 21 165/113 (130) 92 03/31/20 14:52 173/110 03/31/20 14:49 67 18 96 Nasal Cannula 2.0 28 03/31/20 14:48 55 16 96 Nasal Cannula 2.0 28 03/31/20 14:00 71 18 173/110 (131) 95 03/31/20 13:00 76 19 152/99 (116) 96 03/31/20 12:42 96 Nasal Cannula 2.0 28 03/31/20 12:36 Nasal Cannula 2.0 28 03/31/20 12:30 2.0 03/31/20 12:00 35 03/31/20 12:00 Mechanical Ventilator 03/31/20 12:00 98.3 77 21 149/87 (107) 98 03/31/20 12:00 86 03/31/20 11:00 63 20 136/88 (104) 99 03/31/20 10:40 63 20 100 Mechanical Ventilator 35 62 20 35 35 03/31/20 10:00 60 18 160/95 (116) 100 03/31/20 09:00 55 17 152/88 (109) 100 03/31/20 08:55 56 19 35 35 03/31/20 08:00 70 03/31/20 08:00 97.7 61 14 133/85 (101) 100 03/31/20 08:00 Mechanical Ventilator 03/31/20 08:00 35 03/31/20 07:00 59 14 143/86 (105) 100 03/31/20 06:47 50 14 100 Mechanical Ventilator 35 51 15 35 03/31/20 06:30 58 14 03/31/20 06:00 57 14 135/84 (101) 100 03/31/20 05:00 56 14 132/87 (102) 100 03/31/20 04:00 98.3 43 15 156/91 (112) 97 03/31/20 04:00 Mechanical Ventilator 03/31/20 04:00 35 03/31/20 03:37 58 03/31/20 03:04 47 14 100 Mechanical Ventilator 35 45 14 35 03/31/20 03:00 49 14 152/93 (112) 97 03/31/20 02:00 87 15 174/109 (130) 99 03/31/20 01:00 59 20 164/98 (120) 97 03/31/20 00:00 70 03/31/20 00:00 98.0 70 14 138/92 (107) 100 03/31/20 00:00 35 03/31/20 00:00 Mechanical Ventilator 03/30/20 23:00 66 14 139/86 (103) 100 03/30/20 22:39 67 17 97 Mechanical Ventilator 35 69 25 35 03/30/20 22:00 71 15 117/78 (91) 97 03/30/20 21:00 77 16 122/85 (97) 100 03/30/20 20:00 98.6 62 15 132/84 (100) 95 03/30/20 20:00 35 03/30/20 20:00 Mechanical Ventilator Intake and Output 03/30/20 03/31/20 19:00 07:00 Intake Total 805 ml 710 ml Output Total 900 ml 950 ml Balance -95 ml -240 ml IV Total 100 ml Tube Feeding 660 ml 660 ml Other 45 ml 50 ml Output Urine Total 900 ml 950 ml Laboratory Tests 03/31/20 11:30: Arterial Blood pH 7.490H, Arterial Blood Partial Pressure CO2 35.4, Arterial Blood Partial Pressure O2 109.0H, Arterial Blood HCO3 26.4H, Arterial Blood Oxygen Saturation 97.8, Arterial Blood Base Excess 3.1H, Keith Test Positive 03/31/20 17:25: POC Whole Blood Glucose [Pending] Height (Feet): 5 Height (Inches): 5.00 Weight (Pounds): 126 Objective General Appearance: WD/WN, lethargic. intubated Neck: non-tender Cardiovascular: normal rate, regular rhythm Respiratory/Chest: chest wall non-tender, lungs clear, normal breath sounds Abdomen: normal bowel sounds, non tender, soft, no organomegaly Edema: no edema noted Arm (L), no edema noted Arm (R), no edema noted Leg (L), no edema noted Leg (R), no edema noted Pedal (L), no edema noted Pedal (R), no edema noted Generalized Neurologic: alert Isaak Ledesma MD Mar 31, 2020 19:37
--- NOTE | 2020-03-31 19:45 | NUR ---
NURSE NOTES: Noted BP: 136/101mmHg. HR: 82's with SR. Decrease Levophed drip to 8mcg/min. Will continue to monitor any change of condition.
--- NOTE | 2020-03-31 20:00 | NUR ---
NURSE NOTES: Noted BP: 125/91mmHg. HR: 78's with SR. Decrease Levophed drip to 6mcg/min. Rechecked and NGT placement and started tube feeding with Jevity 1.2 @ 20cc/hr and no residual noted. Keep HOB. Will continue to monitor. Addendum: 03/31/20 at 2350 by ESTEPHANIA FISHER RN RN Charting error. Change charting from decrease Levophed drip to 6mcg/min to on Levophed drip @ 8mcg/min.
[2020-03-31] MEDS: Dyna-Hex 2% Top Sol 2oz TOPIC SCH (20:14)
--- NOTE | 2020-03-31 20:15 | NUR ---
NURSE NOTES: Noted BP: 135/86mmHg. HR: 77's with SR. Decrease Levophed drip to 6mcg/min. Will continue to monitor any change of condition.
[2020-03-31] MEDS ORDERED: NS 275ml ONE ×2 (21:06→21:08)
[2020-03-31] MEDS ORDERED: 1/2 NS 1000ml IV ONE ×2 (21:06→21:08)
--- NOTE | 2020-03-31 22:00 | NUR ---
NURSE NOTES: SaO2 97% with current Vent setting. Given suction and oral care. Rechecked BT: 95.8F. Keep Sofia hugger. On playground monitor with SR and HR: 76's. BP is 90/67mmHg with Levophed drip @ 6mcg/min. Changed position. Will continue to monitor any change of condition.
--- NOTE | 2020-03-31 22:45 | NUR ---
NURSE NOTES: Noted BP: 87/63mmHg. HR: 77's with SR. Increase Levophed drip to 8mcg/min. Will continue to monitor any change of condition.
[2020-04-01] VITALS (78 sets, daily range): BP systolic 53–150; BP diastolic 30–103
--- NOTE | 2020-04-01 | NUR ---
NURSE NOTES: Pt is resting on the bed and lethargic and able to response to deep pain stimuli. No residual noted. Increased NGT feeding to 30cc/hr. Suction and oral care was done. on running with Levophed drip @ 8mcg/min. SaO2 96-98% with Current Vent setting. Changed position. Will continue to monitor any change of condition.
--- NOTE | 2020-04-01 00:15 | NUR ---
NURSE NOTES: Noted BP: 89/60mmHg. HR: 86's with SR. Increase Levophed drip to 9mcg/min. SaO2 96-98% with current Vent setting. Will continue to monitor any change of condition.
--- NOTE | 2020-04-01 02:00 | NUR ---
NURSE NOTES: Pt is resting on the bed and no any response noted. Still no pupil reflux noted with 6mm dilatation. Afebrile. Morning care was done. Cleaned Pt and applied lotion and cream. Changed wound dressing and wound picture was taken. On P-200 mattress for wound management. Changed position. Noted BP 88/63mmHg and cribbing setter with SR. Increased Levophed drip @ 11mcg/min. SaO2 96% with Current Vent setting. Suction and oral care was done. NGT is running with Jevity 1.2 @ 30cc/hr and no residual noted. Keep HOB. Both heel off load with pillow. Will continue to monitor any change of condition.
[2020-04-01] MEDS: Norepinephrine 4mg/NS Premix 250 ML IV SCH ×3 (02:36→13:03)
--- NOTE | 2020-04-01 03:00 | NUR ---
NURSE NOTES: Central line dressing changed. PICC site intact and no sign of infiltration noted. Will continue to monitor.
[2020-04-01] MEDS: Albuterol 90mcg Inhaler 8gm INH SCH ×6 (03:14→23:19)
--- NOTE | 2020-04-01 04:00 | NUR ---
NURSE NOTES: Suction was done. Turn and reposition. Noted 20cc residual. On running with Jevity 1.2 @ 30cc/hr. On Levophed drip @ 11mcg/min. Noted good urine output. Will continue to monitor any change of condition.
--- NOTE | 2020-04-01 05:00 | NUR ---
NURSE NOTES: Noted NGT feeding residual 30cc. Held NGT feeding at this time due to Levothyroxine use. Will continue to monitor any change of condition.
--- NOTE | 2020-04-01 06:00 | NUR ---
NURSE NOTES: Pt is resting on the bed and still no response. BP noted 99/64mmHg and falafel cart cook with SR. on running with Levophed drip @ 11mcg/min. Changed position. Given oral care and suction. Held NGT feeding. Will continue to monitor any change of condition.
[2020-04-01 06:45] LABS: HEMATOCRIT 34.6 % (37.0-47.0); HEMOGLOBIN 11.5 G/DL (12.0-16.0); MEAN CORPUSCULAR VOLUME 96 FL (80-99); PLATELET COUNT 479 K/UL (150-450); RED BLOOD COUNT 3.62 M/UL (4.20-5.40); RED CELL DISTRIBUTION WIDTH 13.6 % (11.6-14.8); WHITE BLOOD COUNT 21.1 K/UL (4.8-10.8)
--- NOTE | 2020-04-01 07:14 | NUR ---
HAND-OFF: Report given to SHARATH Jose. Pt is resting on the bed and no response. SaO2 92% with current Vent setting. On running with Levophed drip @ 11mcg/min.
[2020-04-01 07:20] LABS: ANION GAP 6 mmol/L (5-15); BLOOD UREA NITROGEN 12 mg/dL (7-18); CALCIUM 8.8 MG/DL (8.5-10.1); CARBON DIOXIDE 33 MMOL/L (21-32); CHLORIDE 111 MMOL/L (98-107); CREATININE 0.6 MG/DL (0.55-1.30); POTASSIUM 3.5 MMOL/L (3.5-5.1); SODIUM 150 MMOL/L (136-145)
--- NOTE | 2020-04-01 07:20 | NUR ---
NURSE NOTES: Received report from SHARATH Reyes. Patient is observed in bed, eyes closed, no response to voice or pain stimuli; bilateral pupils are nonreactive to light, patient does not follow commands. Patient is orally intubated with ETT 7.5 at 23cm on the lip, with vent settings: AC 14, TV 500, FiO2 70% and PEEP 5. Patient is saturating 91-92%. Patient is on continuous agile qa tester showing SR with HR 80. Patient has NGT on the left nares intact and patent. TF on hold at this time d/t residual and AM Synthroid administered by PM nurse; will resume when tolerated. Patient has a PICC line on left upper arm, intact, patent, clean dressing noted. Levophed infusing at 11mcg/min. Patient has Lainez catheter in place, draining to gravity with pale yellow urine output noted. Patient has no s/s of pain/distress at this time. Safety precautions in place, bed is locked, alarm on, and in lowest position, side rails are up x3, and call light is within reach. Patient is clean and dry at this time. Afebrile. All needs attended to. Will continue to monitor and will continue plan of care.
[2020-04-01] MEDS: Midodrine 10mg tab NG SCH ×3 (08:13→17:30)
[2020-04-01] MEDS: Levofloxacin 750mg tab NG SCH (08:13)
[2020-04-01] MEDS: Ascorbic Acid 500mg tab NG SCH (08:13)
[2020-04-01] MEDS: Zinc Sulfate 220mg NG SCH (08:13)
[2020-04-01] MEDS: Pantoprazole Inj IVP SCH (08:13)
[2020-04-01] MEDS: Heparin 5000 units/ml inj SUBQ SCH ×2 (08:14→20:39)
[2020-04-01] MEDS: Multivitamins W/Minerals 15 ML UDC NG SCH (08:14)
[2020-04-01] MEDS: Lactulose 20gm/30ml UDC NG SCH ×3 (08:14→17:30)
--- NOTE | 2020-04-01 08:44 | Critical Care Progress Note ---
Assessment/Plan Assessment/Plan IMPRESSION: 1. COPD 2. Hypercapnia and hypoxemia. 3. Pneumonia,detention 4. Hypothyroidism. 5. History of allergies. 6. Severe protein-calorie malnutrition. 7. Mild leukocytosis. 8. acute respiratory failure/ failed extubation 9. pulmonary congestion care noted IV antibiotics/ all reviewed respiratory care as is reviewed changes; monitor secretions- discussed care Ventilatory support as is; recommend trach monitor for CO2 retention and congestion maintain meds DVT prophylaxis; supportive care as is off load position change still with reduced LOC overall suction as needed; and taper oxygen aspiration precautions position change and off load oxygen therapy as is d/w primary team and nursing monitor nutrition medications/laboratory data/nursing notes/ICU care reviewed in detail note reviewed and edited care discussed with RN and RT ICU time spent >40 minutes Critical Care - Subjective Interval Events: extubated and required reintubation now on 70% fio2 ROS Limited/Unobtainable: Yes Condition: critical EKG Rhythm: Sinus Rhythm I&O: Intake and Output 03/31/20 04/01/20 19:00 07:00 Intake Total 707.500 ml 557.990 ml Output Total 2050 ml 3360 ml Balance -1342.500 ml -2802.010 ml Free Water 100 ml IV Total 17.500 ml 327.990 ml Tube Feeding 550 ml 230 ml Other 40 ml Output Urine Total 2050 ml 3360 ml Critical Care - Objective ET-Tube: 7.5 ET Position: 23 Last 24 Hour Vital Signs Date Time Temp Pulse Resp B/P (MAP) Pulse Ox O2 Delivery O2 Flow Rate FiO2 04/01/20 08:15 95/62 04/01/20 07:30 98.9 81 14 95/62 (73) 93 04/01/20 07:28 81 14 91 Mechanical Ventilator 70 81 14 70 04/01/20 07:00 79 14 94/63 (73) 92 04/01/20 06:30 80 14 100/61 (74) 93 04/01/20 06:00 80 14 99/64 (76) 92 04/01/20 05:30 79 14 98/64 (75) 93 04/01/20 05:00 80 14 98/68 (78) 93 04/01/20 04:30 81 14 97/67 (77) 93 04/01/20 04:00 98.5 81 13 100/63 (75) 94 04/01/20 04:00 Mechanical Ventilator 04/01/20 04:00 70 04/01/20 04:00 81 04/01/20 03:45 81 14 96/68 (77) 94 04/01/20 03:30 81 14 99/67 (78) 93 04/01/20 03:15 88 14 98 Mechanical Ventilator 70 88 14 70 04/01/20 03:15 81 14 102/68 (79) 97 04/01/20 03:00 85 14 111/69 (83) 95 04/01/20 02:45 84 15 125/83 (97) 97 04/01/20 02:36 100/73 04/01/20 02:30 81 14 100/73 (82) 97 04/01/20 02:15 81 14 115/77 (90) 97 04/01/20 02:00 81 14 88/63 (71) 96 04/01/20 01:45 82 14 93/59 (70) 96 04/01/20 01:30 84 14 91/64 (73) 96 04/01/20 01:15 86 14 93/65 (74) 96 04/01/20 01:00 85 14 91/64 (73) 96 04/01/20 00:45 85 14 90/62 (71) 96 04/01/20 00:30 86 14 98/68 (78) 97 04/01/20 00:15 86 14 89/60 (70) 96 04/01/20 00:00 Mechanical Ventilator 04/01/20 00:00 81 04/01/20 00:00 70 04/01/20 00:00 98.8 88 14 93/63 (73) 96 03/31/20 23:19 80 14 98 Mechanical Ventilator 70 80 14 70 03/31/20 23:00 80 14 118/83 (95) 98 03/31/20 22:45 77 14 87/63 (71) 97 03/31/20 22:30 77 14 92/63 (73) 97 03/31/20 22:15 76 14 91/67 (75) 97 03/31/20 22:00 95.8 76 14 90/67 (75) 97 03/31/20 21:45 75 14 94/67 (76) 97 03/31/20 21:30 74 14 100/72 (81) 97 03/31/20 21:15 74 14 106/80 (89) 97 03/31/20 21:00 73 14 111/82 (92) 96 03/31/20 20:45 73 14 105/83 (90) 96 03/31/20 20:30 73 14 97/75 (82) 94 03/31/20 20:15 77 14 135/86 (102) 94 03/31/20 20:00 Mechanical Ventilator 03/31/20 20:00 82 03/31/20 20:00 95.0 78 14 125/92 (103) 94 03/31/20 20:00 70 03/31/20 19:45 82 14 136/101 (113) 94 03/31/20 19:25 88 14 97 Mechanical Ventilator 70 88 14 70 03/31/20 19:00 86 14 126/97 (107) 98 03/31/20 18:55 88 14 129/100 (110) 97 03/31/20 18:50 88 14 132/100 (111) 96 03/31/20 18:45 85 14 117/84 (95) 93 03/31/20 18:40 86 14 81/59 (66) 92 03/31/20 18:35 93 14 81/61 (68) 93 03/31/20 18:30 107 14 91/69 (76) 96 03/31/20 18:25 120 14 118/88 (98) 98 03/31/20 18:20 131 14 82/61 (68) 96 03/31/20 18:19 61/46 03/31/20 18:15 133 14 61/46 (51) 92 03/31/20 18:10 136 14 68/54 (59) 93 03/31/20 18:00 136 14 68/54 (59) 91 03/31/20 17:51 139 14 70 03/31/20 17:50 70 03/31/20 17:41 139 14 70 03/31/20 17:00 138 15 108/71 (83) 91 03/31/20 16:45 188/83 03/31/20 16:00 97.8 82 22 178/106 (130) 93 03/31/20 16:00 Nasal Cannula 2.0 03/31/20 16:00 81 03/31/20 15:00 131 21 165/113 (130) 92 03/31/20 14:52 173/110 03/31/20 14:49 67 18 96 Nasal Cannula 2.0 28 03/31/20 14:48 55 16 96 Nasal Cannula 2.0 28 03/31/20 14:00 71 18 173/110 (131) 95 03/31/20 13:00 76 19 152/99 (116) 96 03/31/20 12:42 96 Nasal Cannula 2.0 28 03/31/20 12:36 Nasal Cannula 2.0 28 03/31/20 12:30 2.0 03/31/20 12:00 35 03/31/20 12:00 Mechanical Ventilator 03/31/20 12:00 98.3 77 21 149/87 (107) 98 03/31/20 12:00 86 03/31/20 11:00 63 20 136/88 (104) 99 03/31/20 10:40 63 20 100 Mechanical Ventilator 35 62 20 35 35 03/31/20 10:00 60 18 160/95 (116) 100 03/31/20 09:00 55 17 152/88 (109) 100 03/31/20 08:55 56 19 35 35 Labs: Laboratory Tests Test 03/31/20 11:30 03/31/20 17:25 04/01/20 06:10 Arterial Blood pH 7.490 (7.350-7.450) Arterial Blood Partial Pressure CO2 35.4 mmHg (35.0-45.0) Arterial Blood Partial Pressure O2 109.0 mmHg (75.0-100.0) H Arterial Blood HCO3 26.4 mmol/L (22.0-26.0) H Arterial Blood Oxygen Saturation 97.8 % (95-100) Arterial Blood Base Excess 3.1 (-2-2) H Keith Test Positive POC Whole Blood Glucose Pending White Blood Count 21.1 K/UL (4.8-10.8) H Red Blood Count 3.62 M/UL (4.20-5.40) L Hemoglobin 11.5 G/DL (12.0-16.0) L Hematocrit 34.6 % (37.0-47.0) L Mean Corpuscular Volume 96 FL (80-99) Mean Corpuscular Hemoglobin 31.7 PG (27.0-31.0) H Mean Corpuscular Hemoglobin Concent 33.2 G/DL (32.0-36.0) Red Cell Distribution Width 13.6 % (11.6-14.8) Platelet Count 479 K/UL (150-450) H Mean Platelet Volume 7.1 FL (6.5-10.1) Neutrophils (%) (Auto) % (45.0-75.0) Lymphocytes (%) (Auto) % (20.0-45.0) Monocytes (%) (Auto) % (1.0-10.0) Eosinophils (%) (Auto) % (0.0-3.0) Basophils (%) (Auto) % (0.0-2.0) Neutrophils % (Manual) Pending Lymphocytes % (Manual) Pending Platelet Estimate Pending Platelet Morphology Pending Sodium Level 150 MMOL/L (136-145) H Potassium Level 3.5 MMOL/L (3.5-5.1) Chloride Level 111 MMOL/L (98-107) H Carbon Dioxide Level 33 MMOL/L (21-32) H Anion Gap 6 mmol/L (5-15) Blood Urea Nitrogen 12 mg/dL (7-18) Creatinine 0.6 MG/DL (0.55-1.30) Estimat Glomerular Filtration Rate > 60 mL/min (>60) Glucose Level 110 MG/DL (74-106) H Calcium Level 8.8 MG/DL (8.5-10.1) Objective: GENERAL: An ill-appearing female. NAD on Vent NECK: Supple. No adenopathy. LUNGS: Coarse breath sounds. Moderate air entry. ETT in place; no rhonchi or wheeze CARDIAC: S1, S2. Regular rate and rhythm without murmur. ABDOMEN: Soft, nontender, nondistended. feeding tube EXTREMITIES: No cyanosis, clubbing, or edema. reduced LOC but arouseable resting on the vent reviewed and edited Javier Blake MD Apr 01, 2020 08:44
--- NOTE | 2020-04-01 08:49 | General Progress Note ---
Assessment/Plan Status: stable, progressing Assessment/Plan: Assessment/Plan Status: stable, progressing Assessment/Plan: Assessment - Resp failure - weaning - dysphagia - COPD - Anemia - leukocytosis - improved - hypothyroid Recommendations - pulmonary f/u - Tube feeds - elevate HOB - follow labs and exam - PEG placement once stabilized Subjective ROS Limited/Unobtainable: No Allergies: Coded Allergies: PENICILLINS (Verified Allergy, Unknown, 03/11/20) Objective Last 24 Hour Vital Signs Date Time Temp Pulse Resp B/P (MAP) Pulse Ox O2 Delivery O2 Flow Rate FiO2 04/01/20 08:15 95/62 04/01/20 07:30 98.9 81 14 95/62 (73) 93 04/01/20 07:28 81 14 91 Mechanical Ventilator 70 81 14 70 04/01/20 07:00 79 14 94/63 (73) 92 04/01/20 06:30 80 14 100/61 (74) 93 04/01/20 06:00 80 14 99/64 (76) 92 04/01/20 05:30 79 14 98/64 (75) 93 04/01/20 05:00 80 14 98/68 (78) 93 04/01/20 04:30 81 14 97/67 (77) 93 04/01/20 04:00 98.5 81 13 100/63 (75) 94 04/01/20 04:00 Mechanical Ventilator 04/01/20 04:00 70 04/01/20 04:00 81 04/01/20 03:45 81 14 96/68 (77) 94 04/01/20 03:30 81 14 99/67 (78) 93 04/01/20 03:15 88 14 98 Mechanical Ventilator 70 88 14 70 04/01/20 03:15 81 14 102/68 (79) 97 04/01/20 03:00 85 14 111/69 (83) 95 04/01/20 02:45 84 15 125/83 (97) 97 04/01/20 02:36 100/73 04/01/20 02:30 81 14 100/73 (82) 97 04/01/20 02:15 81 14 115/77 (90) 97 04/01/20 02:00 81 14 88/63 (71) 96 04/01/20 01:45 82 14 93/59 (70) 96 04/01/20 01:30 84 14 91/64 (73) 96 04/01/20 01:15 86 14 93/65 (74) 96 04/01/20 01:00 85 14 91/64 (73) 96 04/01/20 00:45 85 14 90/62 (71) 96 04/01/20 00:30 86 14 98/68 (78) 97 04/01/20 00:15 86 14 89/60 (70) 96 04/01/20 00:00 Mechanical Ventilator 04/01/20 00:00 81 04/01/20 00:00 70 04/01/20 00:00 98.8 88 14 93/63 (73) 96 03/31/20 23:19 80 14 98 Mechanical Ventilator 70 80 14 70 03/31/20 23:00 80 14 118/83 (95) 98 03/31/20 22:45 77 14 87/63 (71) 97 03/31/20 22:30 77 14 92/63 (73) 97 03/31/20 22:15 76 14 91/67 (75) 97 03/31/20 22:00 95.8 76 14 90/67 (75) 97 03/31/20 21:45 75 14 94/67 (76) 97 03/31/20 21:30 74 14 100/72 (81) 97 03/31/20 21:15 74 14 106/80 (89) 97 03/31/20 21:00 73 14 111/82 (92) 96 03/31/20 20:45 73 14 105/83 (90) 96 03/31/20 20:30 73 14 97/75 (82) 94 03/31/20 20:15 77 14 135/86 (102) 94 03/31/20 20:00 Mechanical Ventilator 03/31/20 20:00 82 03/31/20 20:00 95.0 78 14 125/92 (103) 94 03/31/20 20:00 70 03/31/20 19:45 82 14 136/101 (113) 94 03/31/20 19:25 88 14 97 Mechanical Ventilator 70 88 14 70 03/31/20 19:00 86 14 126/97 (107) 98 03/31/20 18:55 88 14 129/100 (110) 97 03/31/20 18:50 88 14 132/100 (111) 96 03/31/20 18:45 85 14 117/84 (95) 93 03/31/20 18:40 86 14 81/59 (66) 92 03/31/20 18:35 93 14 81/61 (68) 93 03/31/20 18:30 107 14 91/69 (76) 96 03/31/20 18:25 120 14 118/88 (98) 98 03/31/20 18:20 131 14 82/61 (68) 96 03/31/20 18:19 61/46 03/31/20 18:15 133 14 61/46 (51) 92 03/31/20 18:10 136 14 68/54 (59) 93 03/31/20 18:00 136 14 68/54 (59) 91 03/31/20 17:51 139 14 70 03/31/20 17:50 70 03/31/20 17:41 139 14 70 03/31/20 17:00 138 15 108/71 (83) 91 03/31/20 16:45 188/83 03/31/20 16:00 97.8 82 22 178/106 (130) 93 03/31/20 16:00 Nasal Cannula 2.0 03/31/20 16:00 81 03/31/20 15:00 131 21 165/113 (130) 92 03/31/20 14:52 173/110 03/31/20 14:49 67 18 96 Nasal Cannula 2.0 03/31/20 14:48 55 16 96 Nasal Cannula 2.0 28 03/31/20 14:00 71 18 173/110 (131) 95 03/31/20 13:00 76 19 152/99 (116) 96 03/31/20 12:42 96 Nasal Cannula 2.0 03/31/20 12:36 Nasal Cannula 2.0 28 03/31/20 12:30 2.0 03/31/20 12:00 35 03/31/20 12:00 Mechanical Ventilator 03/31/20 12:00 98.3 77 21 149/87 (107) 98 03/31/20 12:00 86 03/31/20 11:00 63 20 136/88 (104) 99 03/31/20 10:40 63 20 100 Mechanical Ventilator 35 62 20 35 35 03/31/20 10:00 60 18 160/95 (116) 100 03/31/20 09:00 55 17 152/88 (109) 100 03/31/20 08:55 56 19 35 35 Intake and Output 03/31/20 04/01/20 19:00 07:00 Intake Total 707.500 ml 557.990 ml Output Total 2050 ml 3360 ml Balance -1342.500 ml -2802.010 ml Free Water 100 ml IV Total 17.500 ml 327.990 ml Tube Feeding 550 ml 230 ml Other 40 ml Output Urine Total 2050 ml 3360 ml Laboratory Tests 03/31/20 11:30: Arterial Blood pH 7.490H, Arterial Blood Partial Pressure CO2 35.4, Arterial Blood Partial Pressure O2 109.0H, Arterial Blood HCO3 26.4H, Arterial Blood Oxygen Saturation 97.8, Arterial Blood Base Excess 3.1H, Keith Test Positive 03/31/20 17:25: POC Whole Blood Glucose [Pending] 04/01/20 06:10: White Blood Count 21.1H, Red Blood Count 3.62L, Hemoglobin 11.5L, Hematocrit 34.6L, Mean Corpuscular Volume 96, Mean Corpuscular Hemoglobin 31.7H, Mean Corpuscular Hemoglobin Concent 33.2, Red Cell Distribution Width 13.6, Platelet Count 479H, Mean Platelet Volume 7.1, Neutrophils (%) (Auto) , Lymphocytes (%) ( Auto) , Monocytes (%) (Auto) , Eosinophils (%) (Auto) , Basophils (%) (Auto) , Neutrophils % (Manual) [Pending], Lymphocytes % (Manual) [Pending], Platelet Estimate [Pending], Platelet Morphology [Pending], Sodium Level 150H, Potassium Level 3.5, Chloride Level 111H, Carbon Dioxide Level 33H, Anion Gap 6, Blood Urea Nitrogen 12, Creatinine 0.6, Estimat Glomerular Filtration Rate > 60, Glucose Level 110H, Calcium Level 8.8 Height (Feet): 5 Height (Inches): 5.00 Weight (Pounds): 128 General Appearance: lethargic EENT: normal ENT inspection Neck: supple Cardiovascular: tachycardia Respiratory/Chest: decreased breath sounds Abdomen: hypoactive bowel sounds Extremities: non-tender Ronnie Brennan MD Apr 01, 2020 08:49
--- NOTE | 2020-04-01 09:00 | NUR ---
NURSE NOTES: Dr Blkae present at bedside, assessed patient and updated on patient's condition; new orders received, will enter and will carry out.
--- NOTE | 2020-04-01 09:20 | NUR ---
NURSE NOTES: RT at bedside for ABG.
--- NOTE | 2020-04-01 09:57 | NUR ---
NURSE NOTES: Notified Dr Blake regarding patient's ABG results; ordered to change PEEP to 10. RT present at bedside, changed PEEP to 10, O2 saturation went down to 88% and BP 71/54, placed back on PEEP [address] Blake. Will continue to monitor patient.
--- NOTE | 2020-04-01 10:00 | NUR ---
NURSE NOTES: Patient remains orally intubated with current vent settings as follows: AC 14, TV 500, FiO2 100% and PEEP 5, patient is saturating 93% at this time. No distress noted. Levophed at 12mcg/min infusing on left upper PICC line. Will continue to monitor.
[2020-04-01] MEDS: Phenylephrine 50 MG in D5W 245 ML IV SCH ×2 (12:00→17:02)
--- NOTE | 2020-04-01 12:00 | NUR ---
NURSE NOTES: Shifted and turned patient for comfort and safety. Patient remains orally intubated, FiO2 remains at 100% at this time. SpO2 94%. Levophed infusing at 18mcg/min. Left upper arm PICC line remains intact and patent. Received order for phenylephrine, on standby, from Dr Blake and Dr Ledesma. Oral care provided and suctioned patient. Urine output at 200's/per hour, pale yellow. Addendum: 04/01/20 at 1234 by Rebeca Goins RN Safety measures remains in place. Will continue to monitor.
--- NOTE | 2020-04-01 13:15 | Infectious Diseases Prog Note ---
Assessment/Plan Assessment/Plan A: 1. Klebsiella Pneumonia, COVID-19 test is negative x2. 2. Hypothyroidism. 3. COPD. 4. Schizophrenia. 5. Leukocytosis, improving. 6. 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 CP arrest PLAN: 1. continue Levaquin 2. Case was d/w RN Subjective ROS Limited/Unobtainable: Yes Cardiovascular: Reports: other - coced yesterday , on Low dose Levophed Allergies: Coded Allergies: PENICILLINS (Verified Allergy, Unknown, 03/11/20) Objective Last 24 Hour Vital Signs Date Time Temp Pulse Resp B/P (MAP) Pulse Ox O2 Delivery O2 Flow Rate FiO2 04/01/20 13:03 113/73 04/01/20 12:00 Mechanical Ventilator 04/01/20 12:00 98.7 77 14 113/73 (86) 96 04/01/20 12:00 100 04/01/20 11:45 77 14 121/68 (85) 97 04/01/20 11:40 76 14 126/94 (105) 97 04/01/20 11:30 76 14 89/64 (72) 95 04/01/20 11:15 75 14 91/63 (72) 95 04/01/20 11:09 76 14 95 Mechanical Ventilator 100 75 14 100 04/01/20 11:00 75 14 94/64 (74) 95 04/01/20 10:45 74 14 92/64 (73) 96 04/01/20 10:30 74 14 99/69 (79) 97 04/01/20 10:15 74 14 87/59 (68) 96 04/01/20 10:00 76 14 96/60 (72) 96 04/01/20 09:53 76 14 100 04/01/20 09:45 77 14 78/53 (61) 95 04/01/20 09:30 100 04/01/20 09:30 76 14 92/61 (71) 93 04/01/20 09:25 100 04/01/20 09:15 77 14 96/64 (75) 91 04/01/20 09:00 77 14 102/71 (81) 92 04/01/20 08:45 78 14 89/60 (70) 90 04/01/20 08:40 85 04/01/20 08:30 82 14 117/80 (92) 91 04/01/20 08:15 95/62 04/01/20 08:15 77 14 89/57 (68) 91 04/01/20 08:00 Mechanical Ventilator 04/01/20 08:00 70 04/01/20 08:00 78 14 90/60 (70) 91 04/01/20 08:00 77 04/01/20 07:30 98.9 81 14 95/62 (73) 93 04/01/20 07:28 81 14 91 Mechanical Ventilator 70 81 14 70 04/01/20 07:00 79 14 94/63 (73) 92 04/01/20 06:30 80 14 100/61 (74) 93 04/01/20 06:00 80 14 99/64 (76) 92 04/01/20 05:30 79 14 98/64 (75) 93 04/01/20 05:00 80 14 98/68 (78) 93 04/01/20 04:30 81 14 97/67 (77) 93 04/01/20 04:00 98.5 81 13 100/63 (75) 94 04/01/20 04:00 Mechanical Ventilator 04/01/20 04:00 70 04/01/20 04:00 81 04/01/20 03:45 81 14 96/68 (77) 94 04/01/20 03:30 81 14 99/67 (78) 93 04/01/20 03:15 88 14 98 Mechanical Ventilator 70 88 14 70 04/01/20 03:15 81 14 102/68 (79) 97 04/01/20 03:00 85 14 111/69 (83) 95 04/01/20 02:45 84 15 125/83 (97) 97 04/01/20 02:36 100/73 04/01/20 02:30 81 14 100/73 (82) 97 04/01/20 02:15 81 14 115/77 (90) 97 04/01/20 02:00 81 14 88/63 (71) 96 04/01/20 01:45 82 14 93/59 (70) 96 04/01/20 01:30 84 14 91/64 (73) 96 04/01/20 01:15 86 14 93/65 (74) 96 04/01/20 01:00 85 14 91/64 (73) 96 6/28/20 00:45 85 14 90/62 (71) 96 04/01/20 00:30 86 14 98/68 (78) 97 04/01/20 00:15 86 14 89/60 (70) 96 04/01/20 00:00 Mechanical Ventilator 04/01/20 00:00 81 04/01/20 00:00 70 04/01/20 00:00 98.8 88 14 93/63 (73) 96 03/31/20 23:19 80 14 98 Mechanical Ventilator 70 80 14 70 03/31/20 23:00 80 14 118/83 (95) 98 03/31/20 22:45 77 14 87/63 (71) 97 03/31/20 22:30 77 14 92/63 (73) 97 03/31/20 22:15 76 14 91/67 (75) 97 03/31/20 22:00 95.8 76 14 90/67 (75) 97 03/31/20 21:45 75 14 94/67 (76) 97 03/31/20 21:30 74 14 100/72 (81) 97 03/31/20 21:15 74 14 106/80 (89) 97 03/31/20 21:00 73 14 111/82 (92) 96 03/31/20 20:45 73 14 105/83 (90) 96 03/31/20 20:30 73 14 97/75 (82) 94 03/31/20 20:15 77 14 135/86 (102) 94 03/31/20 20:00 Mechanical Ventilator 03/31/20 20:00 82 03/31/20 20:00 95.0 78 14 125/92 (103) 94 03/31/20 20:00 70 03/31/20 19:45 82 14 136/101 (113) 94 03/31/20 19:25 88 14 97 Mechanical Ventilator 70 88 14 70 03/31/20 19:00 86 14 126/97 (107) 98 03/31/20 18:55 88 14 129/100 (110) 97 03/31/20 18:50 88 14 132/100 (111) 96 03/31/20 18:45 85 14 117/84 (95) 93 03/31/20 18:40 86 14 81/59 (66) 92 03/31/20 18:35 93 14 81/61 (68) 93 03/31/20 18:30 107 14 91/69 (76) 96 03/31/20 18:25 120 14 118/88 (98) 98 03/31/20 18:20 131 14 82/61 (68) 96 03/31/20 18:19 61/46 03/31/20 18:15 133 14 61/46 (51) 92 03/31/20 18:10 136 14 68/54 (59) 93 03/31/20 18:00 136 14 68/54 (59) 91 03/31/20 17:51 139 14 70 03/31/20 17:50 70 03/31/20 17:41 139 14 70 03/31/20 17:00 138 15 108/71 (83) 91 03/31/20 16:45 188/83 03/31/20 16:00 97.8 82 22 178/106 (130) 93 03/31/20 16:00 Nasal Cannula 2.0 03/31/20 16:00 81 03/31/20 15:00 131 21 165/113 (130) 92 03/31/20 14:52 173/110 03/31/20 14:49 67 18 96 Nasal Cannula 2.0 28 03/31/20 14:48 55 16 96 Nasal Cannula 2.0 28 03/31/20 14:00 71 18 173/110 (131) 95 Height (Feet): 5 Height (Inches): 5.00 Weight (Pounds): 128 HEENT: mucous membranes moist, other - orally intubated Respiratory/Chest: lungs clear, other - on ventilator Cardiovascular: normal rate, other - PICC line Abdomen: soft, non tender, other - NG tube Extremities: no edema Neurologic/Psychiatric: unresponsiveness Laboratory Tests Test 03/31/20 17:25 04/01/20 06:10 04/01/20 09:12 POC Whole Blood Glucose Pending White Blood Count 21.1 K/UL (4.8-10.8) H Red Blood Count 3.62 M/UL (4.20-5.40) L Hemoglobin 11.5 G/DL (12.0-16.0) L Hematocrit 34.6 % (37.0-47.0) L Mean Corpuscular Volume 96 FL (80-99) Mean Corpuscular Hemoglobin 31.7 PG (27.0-31.0) H Mean Corpuscular Hemoglobin Concent 33.2 G/DL (32.0-36.0) Red Cell Distribution Width 13.6 % (11.6-14.8) Platelet Count 479 K/UL (150-450) H Mean Platelet Volume 7.1 FL (6.5-10.1) Neutrophils (%) (Auto) % (45.0-75.0) Lymphocytes (%) (Auto) % (20.0-45.0) Monocytes (%) (Auto) % (1.0-10.0) Eosinophils (%) (Auto) % (0.0-3.0) Basophils (%) (Auto) % (0.0-2.0) Differential Total Cells Counted 100 Neutrophils % (Manual) 83 % (45-75) H Lymphocytes % (Manual) 13 % (20-45) L Monocytes % (Manual) 4 % (1-10) Eosinophils % (Manual) 0 % (0-3) Basophils % (Manual) 0 % (0-2) Band Neutrophils 0 % (0-8) Platelet Estimate Adequate Platelet Morphology Normal Red Blood Cell Morphology Normal Sodium Level 150 MMOL/L (136-145) H Potassium Level 3.5 MMOL/L (3.5-5.1) Chloride Level 111 MMOL/L (98-107) H Carbon Dioxide Level 33 MMOL/L (21-32) H Anion Gap 6 mmol/L (5-15) Blood Urea Nitrogen 12 mg/dL (7-18) Creatinine 0.6 MG/DL (0.55-1.30) Estimat Glomerular Filtration Rate > 60 mL/min (>60) Glucose Level 110 MG/DL (74-106) H Calcium Level 8.8 MG/DL (8.5-10.1) Arterial Blood pH 7.443 (7.350-7.450) Arterial Blood Partial Pressure CO2 50.6 mmHg (35.0-45.0) H Arterial Blood Partial Pressure O2 55.6 mmHg (75.0-100.0) L Arterial Blood HCO3 33.8 mmol/L (22.0-26.0) H Arterial Blood Oxygen Saturation 89.7 % (95-100) *L Arterial Blood Base Excess 8.4 (-2-2) H Keith Test Positive Current Medications Medications (Trade) Dose Ordered Sig/Ranjeet Route PRN Reason Start Time Stop Time Status Last Admin Dose Admin Acetaminophen (Tylenol) 650 mg Q4H PRN NG Mild Pain (1-3)/Fever > 100.5 03/22/20 15:30 04/10/20 19:29 Albuterol Sulfate (Proventil MDI) 2 puff Q4HRT INH 03/18/20 15:00 06/13/20 02:59 04/01/20 11:08 Ascorbic Acid (Vitamin C) 500 mg DAILY NG 03/23/20 09:00 04/11/20 08:59 04/01/20 08:13 Atropine Sulfate (Atropine) 1 mg Q1H PRN IVP HR <40BPM 03/18/20 13:30 04/17/20 13:29 03/31/20 14:58 Chlorhexidine Gluconate (Mary-Hex 2%) 1 applic DAILY@1999 TOPIC 03/21/20 20:00 06/19/20 19:59 03/31/20 20:14 Clonidine HCl (Catapres Tab) 0.1 mg Q4H PRN NG For High Blood Pressure 03/31/20 16:45 06/29/20 16:44 03/31/20 16:45 Heparin Sodium (Porcine) (Heparin 5000 units/ml) 5,000 units EVERY 12 HOURS SUBQ 03/18/20 21:00 04/25/20 20:59 04/01/20 08:14 Lactulose (Cephulac) 30 gm THREE TIMES A DAY NG 03/22/20 18:00 04/18/20 09:14 04/01/20 12:11 Levofloxacin (Levaquin) 750 mg DAILY NG 03/29/20 10:30 04/05/20 10:29 04/01/20 08:13 Levothyroxine Sodium (Synthroid) 150 mcg DAILY@0630 ORAL 03/31/20 06:30 04/30/20 06:29 04/01/20 06:06 Loratadine (Claritin 10mg) 10 mg DAILY ORAL 03/23/20 09:00 04/11/20 08:59 04/01/20 08:13 Magnesium Hydroxide (Mom) 30 ml HSPRN PRN NG Constipation 03/22/20 15:30 04/17/20 13:59 Midodrine (Pro-Amatine) 10 mg THREE TIMES A DAY NG 03/24/20 13:00 06/21/20 08:59 04/01/20 12:11 Multivitamins (Multivitamins W/ Minerals 15ml Liquid) 15 ml DAILY NG 03/23/20 09:00 04/11/20 08:59 04/01/20 08:14 Norepinephrine Bitartrate 250 ml @ 0 mls/hr Q24H IV 03/23/20 14:52 06/21/20 14:51 04/01/20 13:03 Pantoprazole (Protonix) 40 mg DAILY IVP 03/23/20 09:00 04/22/20 08:59 04/01/20 08:13 Phenylephrine HCl 50 mg/Dextrose 250 ml @ 0 mls/hr Q24H IV 04/01/20 12:00 05/01/20 11:59 Zinc Sulfate (Zinc Sulfate) 220 mg DAILY NG 03/23/20 09:00 06/10/20 08:59 04/01/20 08:13 Domingo Polo MD Apr 01, 2020 13:15
--- NOTE | 2020-04-01 14:00 | NUR ---
NURSE NOTES: Turned and repositioned patient. Patient remains orally intubated, SpO2 95%. Patient remains non responsive to voice/tactile stimuli. Levophed infusing at 20mcg/min. Will continue to monitor.
--- NOTE | 2020-04-01 14:08 | NUR ---
CASE MANAGEMENT:REVIEW 04/01/20 SI: ACUTE RESPIRATORY FAILURE FAILED EXTUBATION 98.7 77 14 113/73 96% ON VENT SUPPORT W/100% FIO2 WBC+21.1 H/H-11.5/34.6 NA+150 PCO2+50.6 PO2-55.6 HCO3+33.8 O2 SAT-89.7 IS: LEVAQUIN NG QD MIDODRINE NG TID ZINC NG QD CLARITIN NG QD IV PROTONIX QD LACTULOSE NG TID HEPARIN SQ Q12 ALBUTEROL INH Q4HRS RTC : ICU STATUS DCP: PATIENT IS FROM [facility] PLAN: RECOMMEND TRACH
--- NOTE | 2020-04-01 14:18 | NUR ---
INSURANCE REVIEWS AND CLINICALS FAXED TO [facility] F: [phone] REF #[id number]
--- NOTE | 2020-04-01 15:00 | NUR ---
NURSE NOTES: technology trainer Richie at bedside.
--- NOTE | 2020-04-01 16:00 | NUR ---
NURSE NOTES: EEG test ongoing at bedside. Patient remains on Levophed at 20mcg/min. VSS on the monitor. Patient saturating 96% on 100% FiO2. No distress. Will continue to monitor.
--- NOTE | 2020-04-01 16:20 | NUR ---
NURSE NOTES: EEG completed, results given to charge nurse, will notify .
--- NOTE | 2020-04-01 16:26 | NUR ---
NURSE NOTES: Notified Dr. Blake regarding abn EEG report. Specified that Dr. Baltazar kitchen to be notified as well. Will call him to give results.
--- NOTE | 2020-04-01 16:30 | NUR ---
NURSE NOTES: CT unable to perform d/t patient unstable, charge nurse Yaa richard.
--- NOTE | 2020-04-01 16:36 | NUR ---
NURSE NOTES: Called Dr. Ledesma to give results regarding patient's EEG with no electrical activity. LM
[2020-04-01] MEDS ORDERED: NS 275ml ONE ×2 (17:15)
--- NOTE | 2020-04-01 18:00 | NUR ---
NURSE NOTES: Complete bed bath given to patient. Linens changed. TF increased to 30ml/hr, no residual at this time. HOB elevated to avoid aspiration. Levophed infusing at 30mcg/min on left upper arm PICC line. Patient remains orally intubated, FiO2 still at 100%, SpO2 91%. Patient remained afebrile. No s/s of distress; will continue to monitor.
--- NOTE | 2020-04-01 19:17 | NUR ---
HAND-OFF: Report given to Bobby Mott RN. Endorsed plan of care.
--- NOTE | 2020-04-01 19:35 | NUR ---
NURSE NOTES: PATIENT NO RESPONSE TO VERBALLY AND TACTILE STIMULI, ON ETT TO VENT, AC 14/TV500/FIO2 100%/PEEP5, O2 SATURATION 92% NOTED, HR 90'S/MIN SR W/PAC'S NOTED, NGT INTACT AND PATENT, ONGOING JEVITY 1.2 AT 30ML/HR, CHECKED RESIDUE 40ML OUTED, KEPT HOB 30 DEGREES AND ASPIRATION PRECAUTION, F/C INTACT AND PATENT, YELLOW URINE OUTED, PICC LINE TO LEFT UPPER ARM, INTACT AND PATENT, ONGOING LEVOPHED 30MCG/MIN AND PHENYLEPHRINE 80MCG/MIN VIA PICC LINE, ON P200 BED, MADE LOWER BED POSITION, ON BED ALARM AND LOCKED, PLACED CALL LIGHT WITHIN REACH, WILL CONTINUE TO MONITOR.
[2020-04-01] MEDS: Dyna-Hex 2% Top Sol 2oz TOPIC SCH (19:57)
--- NOTE | 2020-04-01 20:26 | Surgery Progress Note ---
Surgery Progress Note Subjective Additional Comments brain scan without function possible brain ? discussed with RN labs reviewed Objective Last 24 Hour Vital Signs Date Time Temp Pulse Resp B/P (MAP) Pulse Ox O2 Delivery O2 Flow Rate FiO2 04/01/20 19:26 97 14 92 Mechanical Ventilator 100 100 14 100 04/01/20 19:00 97 14 150/103 (119) 95 04/01/20 18:45 93 14 121/94 (103) 96 04/01/20 18:30 84 14 92/63 (73) 89 04/01/20 18:00 112/59 04/01/20 18:00 84 14 112/59 (76) 92 04/01/20 17:30 98.5 80 14 145/90 (108) 97 04/01/20 17:15 74 14 89/57 (68) 95 04/01/20 17:02 77 97/61 04/01/20 17:00 77 14 124/79 (94) 96 04/01/20 16:53 75 14 63/44 (50) 90 04/01/20 16:45 74 14 56/34 (41) 90 04/01/20 16:40 78 14 106/65 (79) 90 04/01/20 16:31 97/61 04/01/20 16:30 76 14 53/30 (38) 96 04/01/20 16:16 80 15 91/61 (71) 92 04/01/20 16:00 100 04/01/20 16:00 Mechanical Ventilator 04/01/20 16:00 99.3 71 14 97/61 (73) 94 04/01/20 16:00 75 04/01/20 15:30 83 14 106/71 (83) 94 04/01/20 15:18 83 14 100 04/01/20 15:00 83 14 110/65 (80) 93 04/01/20 14:45 82 14 108/63 (78) 93 04/01/20 14:30 82 14 113/64 (80) 94 04/01/20 14:15 81 14 110/68 (82) 94 04/01/20 14:00 81 14 116/68 (84) 95 04/01/20 13:45 81 14 105/72 (83) 95 04/01/20 13:30 82 14 118/73 (88) 96 04/01/20 13:15 82 14 128/86 (100) 94 04/01/20 13:03 113/73 04/01/20 13:00 99 19 109/63 (78) 98 04/01/20 12:45 79 14 102/69 (80) 94 04/01/20 12:30 79 14 102/68 (79) 94 04/01/20 12:15 80 14 106/65 (79) 95 04/01/20 12:00 Mechanical Ventilator 04/01/20 12:00 98.7 77 14 113/73 (86) 96 04/01/20 12:00 82 108/63 04/01/20 12:00 100 04/01/20 12:00 75 04/01/20 11:45 77 14 121/68 (85) 97 04/01/20 11:40 76 14 126/94 (105) 97 04/01/20 11:30 76 14 89/64 (72) 95 04/01/20 11:15 75 14 91/63 (72) 95 04/01/20 11:09 76 14 95 Mechanical Ventilator 100 75 14 100 04/01/20 11:00 75 14 94/64 (74) 95 04/01/20 10:45 74 14 92/64 (73) 96 04/01/20 10:30 74 14 99/69 (79) 97 04/01/20 10:15 74 14 87/59 (68) 96 04/01/20 10:00 76 14 96/60 (72) 96 04/01/20 09:53 76 14 100 04/01/20 09:45 77 14 78/53 (61) 95 04/01/20 09:30 100 04/01/20 09:30 76 14 92/61 (71) 93 04/01/20 09:25 100 04/01/20 09:15 77 14 96/64 (75) 91 04/01/20 09:00 77 14 102/71 (81) 92 04/01/20 08:45 78 14 89/60 (70) 90 04/01/20 08:40 85 04/01/20 08:30 82 14 117/80 (92) 91 04/01/20 08:15 95/62 04/01/20 08:15 77 14 89/57 (68) 91 04/01/20 08:00 Mechanical Ventilator 04/01/20 08:00 70 04/01/20 08:00 78 14 90/60 (70) 91 04/01/20 08:00 77 04/01/20 07:30 98.9 81 14 95/62 (73) 93 04/01/20 07:28 81 14 91 Mechanical Ventilator 70 81 14 70 04/01/20 07:00 79 14 94/63 (73) 92 04/01/20 06:30 80 14 100/61 (74) 93 04/01/20 06:00 80 14 99/64 (76) 92 04/01/20 05:30 79 14 98/64 (75) 93 04/01/20 05:00 80 14 98/68 (78) 93 04/01/20 04:30 81 14 97/67 (77) 93 04/01/20 04:00 98.5 81 13 100/63 (75) 94 04/01/20 04:00 Mechanical Ventilator 04/01/20 04:00 70 04/01/20 04:00 81 04/01/20 03:45 81 14 96/68 (77) 94 04/01/20 03:30 81 14 99/67 (78) 93 04/01/20 03:15 88 14 98 Mechanical Ventilator 70 88 14 70 04/01/20 03:15 81 14 102/68 (79) 97 04/01/20 03:00 85 14 111/69 (83) 95 04/01/20 02:45 84 15 125/83 (97) 97 04/01/20 02:36 100/73 04/01/20 02:30 81 14 100/73 (82) 97 04/01/20 02:15 81 14 115/77 (90) 97 04/01/20 02:00 81 14 88/63 (71) 96 04/01/20 01:45 82 14 93/59 (70) 96 04/01/20 01:30 84 14 91/64 (73) 96 04/01/20 01:15 86 14 93/65 (74) 96 04/01/20 01:00 85 14 91/64 (73) 96 04/01/20 00:45 85 14 90/62 (71) 96 04/01/20 00:30 86 14 98/68 (78) 97 04/01/20 00:15 86 14 89/60 (70) 96 04/01/20 00:00 Mechanical Ventilator 04/01/20 00:00 81 04/01/20 00:00 70 04/01/20 00:00 98.8 88 14 93/63 (73) 96 03/31/20 23:19 80 14 98 Mechanical Ventilator 70 80 14 70 03/31/20 23:00 80 14 118/83 (95) 98 03/31/20 22:45 77 14 87/63 (71) 97 03/31/20 22:30 77 14 92/63 (73) 97 03/31/20 22:15 76 14 91/67 (75) 97 03/31/20 22:00 95.8 76 14 90/67 (75) 97 03/31/20 21:45 75 14 94/67 (76) 97 03/31/20 21:30 74 14 100/72 (81) 97 03/31/20 21:15 74 14 106/80 (89) 97 03/31/20 21:00 73 14 111/82 (92) 96 03/31/20 20:45 73 14 105/83 (90) 96 03/31/20 20:30 73 14 97/75 (82) 94 I&O Intake and Output 03/31/20 04/01/20 19:00 07:00 Intake Total 707.500 ml 599.240 ml Output Total 2050 ml 3360 ml Balance -1342.500 ml -2760.760 ml Free Water 100 ml IV Total 17.500 ml 369.240 ml Tube Feeding 550 ml 230 ml Other 40 ml Output Urine Total 2050 ml 3360 ml Dressing: other Wound: other Drains: other Cardiovascular: RSR Respiratory: decreased breath sounds Abdomen: soft, present bowel sounds Extremities: no cyanosis Laboratory Tests Test 04/01/20 06:10 04/01/20 09:12 White Blood Count 21.1 K/UL (4.8-10.8) H Red Blood Count 3.62 M/UL (4.20-5.40) L Hemoglobin 11.5 G/DL (12.0-16.0) L Hematocrit 34.6 % (37.0-47.0) L Mean Corpuscular Volume 96 FL (80-99) Mean Corpuscular Hemoglobin 31.7 PG (27.0-31.0) H Mean Corpuscular Hemoglobin Concent 33.2 G/DL (32.0-36.0) Red Cell Distribution Width 13.6 % (11.6-14.8) Platelet Count 479 K/UL (150-450) H Mean Platelet Volume 7.1 FL (6.5-10.1) Neutrophils (%) (Auto) % (45.0-75.0) Lymphocytes (%) (Auto) % (20.0-45.0) Monocytes (%) (Auto) % (1.0-10.0) Eosinophils (%) (Auto) % (0.0-3.0) Basophils (%) (Auto) % (0.0-2.0) Differential Total Cells Counted 100 Neutrophils % (Manual) 83 % (45-75) H Lymphocytes % (Manual) 13 % (20-45) L Monocytes % (Manual) 4 % (1-10) Eosinophils % (Manual) 0 % (0-3) Basophils % (Manual) 0 % (0-2) Band Neutrophils 0 % (0-8) Platelet Estimate Adequate Platelet Morphology Normal Red Blood Cell Morphology Normal Sodium Level 150 MMOL/L (136-145) H Potassium Level 3.5 MMOL/L (3.5-5.1) Chloride Level 111 MMOL/L (98-107) H Carbon Dioxide Level 33 MMOL/L (21-32) H Anion Gap 6 mmol/L (5-15) Blood Urea Nitrogen 12 mg/dL (7-18) Creatinine 0.6 MG/DL (0.55-1.30) Estimat Glomerular Filtration Rate > 60 mL/min (>60) Glucose Level 110 MG/DL (74-106) H Calcium Level 8.8 MG/DL (8.5-10.1) Arterial Blood pH 7.443 (7.350-7.450) Arterial Blood Partial Pressure CO2 50.6 mmHg (35.0-45.0) H Arterial Blood Partial Pressure O2 55.6 mmHg (75.0-100.0) L Arterial Blood HCO3 33.8 mmol/L (22.0-26.0) H Arterial Blood Oxygen Saturation 89.7 % (95-100) *L Arterial Blood Base Excess 8.4 (-2-2) H Keith Test Positive Plan Problems: (1) Malnutrition Assessment & Plan: not eating enough TF started adv as tolerated bowel regimen DDAILY ESTIMATED NEEDS: Needs based on Wound, pulmonary / 56kg 25-35 kcals/kg 2965-0364 total kcals 1.25-1.8 g protein/kg 70-100 g total protein 25-30 mL/kg 5596-5060 total fluid mLs NUTRITION DIAGNOSIS: * Swallowing difficulty R/T dysphagia as evidenced by DIRECT MARKETING INTERN w/ rec for NPO, now on NGT feeds. * Increased kcal/prot/micronutrients needs R/T wound healing as evidenced by pt admitted w/ multiple wounds including full thickness wound @ sacrum, TPI wound @ L Gluteal cheek, and non-Blanchable erythema @ BL heels. CURRENT TF:Jevity 1.2 @30ml/hr ENTERAL NUTRITION RECOMMENDATIONS: JEVITY 1.2 goal of 55ml/hr x24 hrs to provide 1320ml, 1584 kcal, 73g pro, 1065ml free H2O - rec to INCREASE current TF as tolerated to goal of 55ml/hr to better meet est needs. - flush per MD, HOB over 30 degrees ADDITIONAL RECOMMENDATIONS: * Per SNF: HT=66" YB=080imv (03/07/20) * Wound healing: continue MVI, Vit C, and ZnSO4 * VIA NGT-> add TONI BID for wound care TF recs as above * Monitor lytes, replete as needed THIS 60 Y.O.M. WAS ADMITTED WITH ACUTE ISSUES - FEVER, HYPOXIC WITH LOW 02 SATS ON NON-REBREATHER, RESP RATE 18 BPM INITIALLY PER MEDICAL RECORD. PER RN, THE PATIENT HAD A RAPID RESPOSE THIS MORNING (DESAT TO 90S AND RAPID RESP RATE). H/O COPD, CARDIAC DZ, HYPOTHYROIDISM, HTN, ALLERGIC RHINITIS, SCHIZOPHRENIA (ON OLANZAPINE AT SNF), BASELINE NONVERBAL. PER POLST FULL TX BUT NO INFORMATION REGARDING TUBE FEEDING PREFERENCES. AT SNF ON A REGULAR DIET TEXTURE AND THIN LIQUIDS WITH PROSTAT SF DRINK WITH MEALS. NOW ON A REGULAR TEXTURE DIET AND THIN LIQUIDS BUT DID NOT TAKE ANY PO. PER LAURIE EARLY, THE PT UNABLE TO TAKE LARGE PILLS BUT APPEARED TO TOLERATE CRUSHED MEDS WITH APPLESAUCE W/O OVERT ASPIRATION. PATIENT SEEN WITH FUNMI HEATH. PER RT RESP RATE 22 BPM AND NOT ABLE TO ongoing unintelligible confabulations. Patient did request a sandwich, however, not appropriate for regular texture at this time. VITALS ON 2 L NASAL CANNULA: HR: 73; RR: 20; SP02: 95% Patient's oral hygiene is improving, ongoing poor speech intelligibility which appears to be more due to poor articulation precision/oral motor coordination versus 2/2 dry mouth. CXR on 03/14/20: Findings: Interim considerable improvement of previously demonstrated left lower lobe infiltrate. There is a residual disease in the retrocardiac region as well as generalized reticular interstitial opacities throughout the left mid and lower lung. There is questionably a 3 cm spiculated opacity projected over the apex. Minimal right mid and lower lung reticular opacities are also demonstrated. There is some right midlung atelectasis versus thickening of the minor fissure. The heart size is normal. The pleural spaces are clear Impression: Considerable improvement the persistence of previously demonstrated left mid and lower lung infiltrates, since prior study of 03/11/2020. DIRECT MARKETING INTERN plans to continue to f/u and monitor Patients readiness for PO trials for diet texture upgrade. RN aware of recommendations, plan, and aspiration precautions sign posted above Patients HOB. RECOMMENDATIONS: 1. Continue Moist Puree with Shields Thick Liquids Diet via 1 to 1 careful handfeeding while implementing posted aspiration precautions - RD recommendations appreciated for diet texture/type 2. Patient requires oral hygiene BID + lip moisturizer. (2) Decubitus skin ulcer Assessment & Plan: Pt presented on admission with multiple pressure injuries. Full thickness Pressure injury Sacrococcygeal area. (L)4cm x (W)2.5cm. Base of wound is fatou with scattered slough ,which was easily removed with gentle friction. Wound is now fatou with 25% soft necrosis at distal base of wound. Small amt sanguineous exudate noted.No odor noted. Periwound erythematous and denuded. Two additional Pressure Injuries noted to R gluteal cheek.(Proximal) Base of wound is purple and indurated(L)3cm x (W)1.5cm. Surrounding erythematous and denuded skin (Distal) R gluteus(L)1.4cm x (W)0.6cm. Base of wound is purple, indurated with surrounding erythematous and denuded skin. DTPI L Gluteal cheek (L)1.5cm x (W)1.3cm. Base of wound is indurated, purple with surrounding non-blanching erythema. Additional scattered areas that are maroon in colour noted to L gluteal cheek. Lateral L Heel boggy with non-blanching erythema with delineated margins. (L) 4cm x (W)4.5cm. Lateral R Heel Boggy with non-Blanchable erythema with delineated margins(L) 2.5cm x (W)2.5cm. Tx.Plan: Cleanse Sacrococcygeal area with saline. Apply TheraHoney , Apply Moisture Barrier Paste to Sacrum, R and L Buttocks. Cover entire Area with Optifoam drsgs. Change every 3 days and prn. Apply Moisture Barrier Paste to R and L Buttocks . Cover with Optifoam drsgs. Changee very 3 days and prn. Apply Cavilon Skin Barrier to R and L Trochanteric areas. Cover with Optifoam drsg. Change every 7 days and prn. Apply Cavilon Skin Barrier to R and L Heels. Cover each heel with Optifoam drsg. Change every 7 days and prn. Reposition at least every 2hours or as tolerated. Off-load heels with Pillow. APM/ERIK Mattress. (3) Pneumonia Assessment & Plan: Lungs: There is mild left lower lobe infiltrate consistent with pneumonia. Pleural space: Unremarkable. No pneumothorax. Heart: The heart size is at the upper limits of normal. Mediastinum: Unremarkable. Bones/joints: Unremarkable. IMPRESSION: There is mild left lower lobe infiltrate consistent with pneumonia. worsening on bipap now will monitor closely intubated now 03/21 wean vent Continue weaning. Will hopefully be extubated potentially. Gases noted. (4) COPD (chronic obstructive pulmonary disease) Assessment & Plan: On vent support weaning Potential extubation soon (5) Fever Eddie Perez Apr 01, 2020 20:26
--- NOTE | 2020-04-01 21:28 | NUR ---
NURSE NOTES: PATIENT COMATOSE STATUS, ONGOING LEVOPHED 30MCG/MIN AND PHENYLEPHRINE 60MCG/MIN VIA PICC LINE, WILL CONTINUE TO MONITOR.
[2020-04-02] VITALS (75 sets, daily range): BP systolic 39–188; BP diastolic 24–110
--- NOTE | 2020-04-02 | NUR ---
NURSE NOTES: PATIENT COMATOSE, NO MOVEMENT TO STIMULI STATUS, HELD NGT FEEDING DUE TO RESIDUE 110ML NOTED, KEPT HOB OVER 30 DEGREES AND ASPIRATION PRECAUTION, WILL CONTINUE TO MONITOR.
--- NOTE | 2020-04-02 02:12 | NUR ---
NURSE NOTES: NO PAIN OR SOB NOTED, NO MOVEMENT STATUS, WILL CONTINUE PLAN OF CARE.
[2020-04-02] MEDS: Albuterol 90mcg Inhaler 8gm INH SCH ×6 (02:55→23:10)
--- NOTE | 2020-04-02 03:31 | NUR ---
NURSE NOTES: NGT INTACT AND PATENT, RESIDUE 100ML NOTED, CONTINUE HELD FEEDING STATUS, WILL CONTINUE TO MONITOR.
--- NOTE | 2020-04-02 05:04 | NUR ---
NURSE NOTES: MORNING CARE WAS DONE, NO BM STATUS.
[2020-04-02 05:22] LABS: HEMATOCRIT 41.4 % (37.0-47.0); HEMOGLOBIN 12.7 G/DL (12.0-16.0); MEAN CORPUSCULAR VOLUME 100 FL (80-99); PLATELET COUNT 438 K/UL (150-450); RED BLOOD COUNT 4.15 M/UL (4.20-5.40); RED CELL DISTRIBUTION WIDTH 14.6 % (11.6-14.8)
[2020-04-02 05:45] LABS: WHITE BLOOD COUNT 30.4 K/UL (4.8-10.8)
[2020-04-02 05:59] LABS: ANION GAP 6 mmol/L (5-15); BLOOD UREA NITROGEN 13 mg/dL (7-18); CARBON DIOXIDE 34 MMOL/L (21-32); CHLORIDE 118 MMOL/L (98-107); CREATININE 0.9 MG/DL (0.55-1.30); POTASSIUM 3.6 MMOL/L (3.5-5.1); SODIUM 158 MMOL/L (136-145)
--- NOTE | 2020-04-02 06:30 | NUR ---
NURSE NOTES: NO ACUTE DISTRESS NOTED AT THIS SHIFT.
--- NOTE | 2020-04-02 07:00 | NUR ---
NURSE NOTES: le: CALLED DR. José BRUMFIELD REGARDING WBC 30.4 THAT SAID, "CALL DR. PEREZ." Addendum: 04/02/20 at 0721 by NUHA REDD RN NURSE NOTES: le: CALLED DR. José BRUMFIELD REGARDING WBC 30.4 THAT SAID, "CALL DR. HUSSEIN."
--- NOTE | 2020-04-02 07:10 | NUR ---
HAND-OFF: Report given to SHARATH JAMES.
--- NOTE | 2020-04-02 07:21 | NUR ---
NURSE NOTES: CALLED DR. HUSSEIN REGARDING WBC 30.4 THAT LEFT MESSAGE.
[2020-04-02] MEDS: Phenylephrine 50 MG in D5W 245 ML IV SCH ×3 (07:37→22:45)
--- NOTE | 2020-04-02 07:40 | NUR ---
NURSE NOTES: LATE ENTRY: RECEIVED REPORT FROM NUHA Baez PT NON RESPONSIVE TO PAIN, NO GAG, NO PUPIL ACTIVITY. ETT 7.5, 23 CM AT LIP. VENT SETTINGS AC 14, VT 500, FI02 100%, PEEP 5. SECRETIONS SMALL,THIN. ABDOMEN ROUND. NO BM. AZAR, DRAINING YELLOW URINE. BILATERAL RADIAL AND PEDAL PULSES THREADY. SKIN- SEE ASSESSMENT. IV ACCESS YUMIKO PICC. PATENT, DRESSING DRY AND INTACT. RUNNING 1LEVOPHED 30MCG/HR. PHENYLEPHRINE 40MCG/HR ML/HR. PT AFEBRILE. PT ON P200 AIR MATTRESS. CONTACT PRECAUTIONS IN PLACE. CALL LIGHT IN REACH. BED LOCKED, IN LOW POSITION, SIDE RAILS UP X2. BED ALARM ON. WILL CONTINUE TO MONITOR PT.
--- NOTE | 2020-04-02 08:58 | Critical Care Progress Note ---
Assessment/Plan Assessment/Plan IMPRESSION: 1. COPD 2. Hypercapnia and hypoxemia. 3. Pneumonia,care home 4. Hypothyroidism. 5. History of allergies. 6. Severe protein-calorie malnutrition. 7. Mild leukocytosis. 8. acute respiratory failure/ failed extubation 9. pulmonary congestion 10. hypernatremia 11. ?brain care noted neuro needed IV antibiotics/ all reviewed respiratory care as is reviewed changes; monitor secretions- discussed care Ventilatory support as is; recommend trach monitor for CO2 retention and congestion maintain meds DVT prophylaxis; supportive care as is off load aspiration precautions position change and off load oxygen therapy as is prognosis poor possible removal of life support if brain confirmed medications/laboratory data/nursing notes/ICU care reviewed in detail note reviewed and edited care discussed with RN and RT ICU time spent >40 minutes Critical Care - Subjective Interval Events: EEG ? no activity possible brain ROS Limited/Unobtainable: Yes Condition: critical EKG Rhythm: Sinus Rhythm Residuals: minimal Tube Feeding Tolerated: yes I&O: Intake and Output 04/01/20 04/02/20 19:00 07:00 Intake Total 856.250 ml 1099.50 ml Output Total 2450 ml 1550 ml Balance -1593.750 ml -450.50 ml IV Total 586.250 ml 889.50 ml Tube Feeding 220 ml 150 ml Other 50 ml 60 ml Output Urine Total 2450 ml 1550 ml Critical Care - Objective ET-Tube: 7.5 ET Position: 23 Last 24 Hour Vital Signs Date Time Temp Pulse Resp B/P (MAP) Pulse Ox O2 Delivery O2 Flow Rate FiO2 04/02/20 07:37 84 104/71 04/02/20 07:29 87 14 97 Mechanical Ventilator 100 88 14 100 04/02/20 07:00 84 14 104/73 (83) 96 04/02/20 07:00 104/73 04/02/20 06:30 84 14 100/69 (79) 96 04/02/20 06:00 102/69 04/02/20 06:00 85 14 102/69 (80) 95 04/02/20 05:48 112/74 04/02/20 05:45 87 14 112/74 (87) 96 04/02/20 05:30 88 14 108/74 (85) 96 04/02/20 05:15 88 14 106/73 (84) 96 04/02/20 05:00 109/70 04/02/20 05:00 89 14 109/70 (83) 96 04/02/20 04:30 92 15 109/75 (86) 93 04/02/20 04:00 100 04/02/20 04:00 98.7 89 14 96/69 (78) 93 04/02/20 04:00 89 04/02/20 04:00 96/69 04/02/20 04:00 Mechanical Ventilator 04/02/20 03:30 89 14 98/67 (77) 93 04/02/20 03:00 89 14 96/65 (75) 93 04/02/20 03:00 96/65 04/02/20 02:55 89 14 93 Mechanical Ventilator 100 89 14 100 04/02/20 02:45 89 14 99/67 (78) 93 04/02/20 02:30 89 14 99/69 (79) 93 04/02/20 02:00 90 14 98/67 (77) 90 04/02/20 02:00 98/67 04/02/20 01:57 99/65 04/02/20 01:30 89 14 97/64 (75) 93 04/02/20 01:00 96/70 04/02/20 01:00 90 14 96/70 (79) 93 04/02/20 00:30 89 14 97/68 (78) 93 04/02/20 00:00 100 04/02/20 00:00 Mechanical Ventilator 04/02/20 00:00 103/69 04/02/20 00:00 90 04/02/20 00:00 98.1 90 14 103/69 (80) 93 04/01/20 23:30 89 14 100/71 (81) 93 04/01/20 23:19 89 14 94 Mechanical Ventilator 100 100 14 100 04/01/20 23:00 102/71 04/01/20 23:00 90 14 102/71 (81) 93 04/01/20 22:30 89 14 101/66 (78) 93 04/01/20 22:00 90 14 105/70 (82) 93 04/01/20 22:00 105/70 04/01/20 21:30 92 14 107/76 (86) 91 04/01/20 21:04 103/70 04/01/20 21:00 105/72 04/01/20 21:00 93 14 105/72 (83) 91 04/01/20 20:30 94 14 106/74 (85) 91 04/01/20 20:00 98.9 94 15 105/74 (84) 92 04/01/20 20:00 105/74 04/01/20 20:00 Mechanical Ventilator 04/01/20 20:00 100 04/01/20 19:45 96 14 111/75 (87) 91 04/01/20 19:45 111/75 04/01/20 19:42 96 04/01/20 19:30 97 14 116/73 (87) 92 04/01/20 19:26 97 14 92 Mechanical Ventilator 100 100 14 100 04/01/20 19:00 97 14 150/103 (119) 95 04/01/20 18:45 93 14 121/94 (103) 96 04/01/20 18:30 84 14 92/63 (73) 89 04/01/20 18:00 112/59 04/01/20 18:00 84 14 112/59 (76) 92 04/01/20 17:30 98.5 80 14 145/90 (108) 97 04/01/20 17:15 74 14 89/57 (68) 95 04/01/20 17:02 77 97/61 04/01/20 17:00 77 14 124/79 (94) 96 04/01/20 16:53 75 14 63/44 (50) 90 04/01/20 16:45 74 14 56/34 (41) 90 04/01/20 16:40 78 14 106/65 (79) 90 04/01/20 16:31 97/61 04/01/20 16:30 76 14 53/30 (38) 96 04/01/20 16:16 80 15 91/61 (71) 92 04/01/20 16:00 100 04/01/20 16:00 Mechanical Ventilator 04/01/20 16:00 99.3 71 14 97/61 (73) 94 04/01/20 16:00 75 04/01/20 15:30 83 14 106/71 (83) 94 04/01/20 15:18 83 14 100 04/01/20 15:00 83 14 110/65 (80) 93 04/01/20 14:45 82 14 108/63 (78) 93 04/01/20 14:30 82 14 113/64 (80) 94 04/01/20 14:15 81 14 110/68 (82) 94 04/01/20 14:00 81 14 116/68 (84) 95 04/01/20 13:45 81 14 105/72 (83) 95 04/01/20 13:30 82 14 118/73 (88) 96 04/01/20 13:15 82 14 128/86 (100) 94 04/01/20 13:03 113/73 04/01/20 13:00 99 19 109/63 (78) 98 04/01/20 12:45 79 14 102/69 (80) 94 04/01/20 12:30 79 14 102/68 (79) 94 04/01/20 12:15 80 14 106/65 (79) 95 04/01/20 12:00 Mechanical Ventilator 04/01/20 12:00 98.7 77 14 113/73 (86) 96 04/01/20 12:00 82 108/63 04/01/20 12:00 100 04/01/20 12:00 75 04/01/20 11:45 77 14 121/68 (85) 97 04/01/20 11:40 76 14 126/94 (105) 97 04/01/20 11:30 76 14 89/64 (72) 95 04/01/20 11:15 75 14 91/63 (72) 95 04/01/20 11:09 76 14 95 Mechanical Ventilator 100 75 14 100 04/01/20 11:00 75 14 94/64 (74) 95 04/01/20 10:45 74 14 92/64 (73) 96 04/01/20 10:30 74 14 99/69 (79) 97 04/01/20 10:15 74 14 87/59 (68) 96 04/01/20 10:00 76 14 96/60 (72) 96 04/01/20 09:53 76 14 100 04/01/20 09:45 77 14 78/53 (61) 95 04/01/20 09:30 100 04/01/20 09:30 76 14 92/61 (71) 93 04/01/20 09:25 100 04/01/20 09:15 77 14 96/64 (75) 91 04/01/20 09:00 77 14 102/71 (81 92 Labs: Laboratory Tests Test 04/01/20 09:12 04/02/20 04:07 04/02/20 08:35 Arterial Blood pH 7.443 (7.350-7.450) 7.394 (7.350-7.450) Arterial Blood Partial Pressure CO2 50.6 mmHg (35.0-45.0) H 52.2 mmHg (35.0-45.0) H Arterial Blood Partial Pressure O2 55.6 mmHg (75.0-100.0) L 62.4 mmHg (75.0-100.0) L Arterial Blood HCO3 33.8 mmol/L (22.0-26.0) H 31.2 mmol/L (22.0-26.0) H Arterial Blood Oxygen Saturation 89.7 % (95-100) *L 91.9 % (95-100) L Arterial Blood Base Excess 8.4 (-2-2) H 5.1 (-2-2) H Keith Test Positive Positive White Blood Count 30.4 K/UL (4.8-10.8) *H Red Blood Count 4.15 M/UL (4.20-5.40) L Hemoglobin 12.7 G/DL (12.0-16.0) Hematocrit 41.4 % (37.0-47.0) Mean Corpuscular Volume 100 FL (80-99) H Mean Corpuscular Hemoglobin 30.6 PG (27.0-31.0) Mean Corpuscular Hemoglobin Concent 30.7 G/DL (32.0-36.0) L Red Cell Distribution Width 14.6 % (11.6-14.8) Platelet Count 438 K/UL (150-450) Mean Platelet Volume 7.4 FL (6.5-10.1) Neutrophils (%) (Auto) % (45.0-75.0) Lymphocytes (%) (Auto) % (20.0-45.0) Monocytes (%) (Auto) % (1.0-10.0) Eosinophils (%) (Auto) % (0.0-3.0) Basophils (%) (Auto) % (0.0-2.0) Neutrophils % (Manual) Pending Lymphocytes % (Manual) Pending Platelet Estimate Pending Platelet Morphology Pending Sodium Level 158 MMOL/L (136-145) H Potassium Level 3.6 MMOL/L (3.5-5.1) Chloride Level 118 MMOL/L (98-107) H Carbon Dioxide Level 34 MMOL/L (21-32) H Anion Gap 6 mmol/L (5-15) Blood Urea Nitrogen 13 mg/dL (7-18) Creatinine 0.9 MG/DL (0.55-1.30) Estimat Glomerular Filtration Rate > 60 mL/min (>60) Glucose Level 86 MG/DL (74-106) Calcium Level 9.0 MG/DL (8.5-10.1) Objective: GENERAL: An ill-appearing female. NAD on Vent NECK: Supple. No adenopathy. LUNGS: Coarse breath sounds. Moderate air entry. ETT in place; no rhonchi or wheeze CARDIAC: S1, S2. Regular rate and rhythm without murmur. ABDOMEN: Soft, nontender, nondistended. feeding tube EXTREMITIES: No cyanosis, clubbing, or edema. obtunded on the vent reviewed and edited Javier Blake MD Apr 02, 2020 08:58
--- NOTE | 2020-04-02 09:00 | NUR ---
NURSE NOTES: LATE ENTRY: PT IN BED. EYES COVERED TO CONSERVE MOISTURE. MEDICATION ADMINISTRATION COMPLETE. PT HAS HIGH RESIDUAL, TUBE FEED HELD. NEW MAINTENANCE FLUID STARTED. NA 158. 1/2 NS RUNNING AT 50ML/HR, VIA YUMIKO PICC.
[2020-04-02] MEDS: Pantoprazole Inj IVP SCH (09:12)
[2020-04-02] MEDS: Lactulose 20gm/30ml UDC NG SCH ×3 (09:12→18:25)
[2020-04-02] MEDS: Ascorbic Acid 500mg tab NG SCH (09:12)
[2020-04-02] MEDS: Levofloxacin 750mg tab NG SCH (09:12)
[2020-04-02] MEDS: Zinc Sulfate 220mg NG SCH (09:12)
[2020-04-02] MEDS: Multivitamins W/Minerals 15 ML UDC NG SCH (09:12)
[2020-04-02] MEDS: Midodrine 10mg tab NG SCH ×3 (09:12→18:25)
[2020-04-02] MEDS: Heparin 5000 units/ml inj SUBQ SCH ×2 (09:14→20:30)
--- NOTE | 2020-04-02 10:09 | NUR ---
CASE MANAGEMENT:REVIEW 04/02/20 SI: ACUTE RESPIRATORY FAILURE 03/31/20 FAILED EXTUBATION . S/P CODE BLUE 98.7 89 14 96/69 93% ON VENT SUPPORT W/100% FIO2 WBC 30.4 NA+158 CL-118 CO2-34 ABG: pCO2 52.2 pO2 62.4 HCO3 31.2 O2 SAT 91.9 IS: LEVAQUIN NG QD MIDODRINE NG TID ZINC NG QD CLARITIN NG QD IV PROTONIX QD LACTULOSE NG TID HEPARIN SQ Q12 ALBUTEROL INH Q4HRS RTC : ICU STATUS DCP: PATIENT IS FROM [facility] PLAN: FAILED EXTUBATION CT HEAD-PENDING EEG RESULTS PENDING
--- NOTE | 2020-04-02 10:20 | NUR ---
NURSE NOTES: LATE ENTRY: DR. HUSSEIN HERE TO SEE PT. WAS INFORMED OF CRITICAL HIGH WBC 30.4. AX 98.8. NOT TOLERATING TUBE FEEDS. EEG NO ACTIVITY. SCHEDULED LEVAQUIN 750MG TABLET. WILL PLACE OWN ORDERS.
--- NOTE | 2020-04-02 10:56 | Infectious Diseases Prog Note ---
Assessment/Plan Assessment/Plan antibiotics : levoquin A 1. klebsiella pneumonia COVID 19 test negative x 2 2. respiratory failure 3. COPD 4. leucocytosis increased 5. hypothyroidism 6. schizophrenia P 1. d/c levoquin 2, start cefepime 3. extubation planned 4. will follow up cultures Subjective ROS Limited/Unobtainable: Yes Allergies: Coded Allergies: PENICILLINS (Verified Allergy, Unknown, 03/11/20) Objective Last 24 Hour Vital Signs Date Time Temp Pulse Resp B/P (MAP) Pulse Ox O2 Delivery O2 Flow Rate FiO2 04/02/20 08:00 87 04/02/20 07:37 84 104/71 04/02/20 07:29 87 14 97 Mechanical Ventilator 100 88 14 100 04/02/20 07:00 84 14 104/73 (83) 96 04/02/20 07:00 104/73 04/02/20 06:30 84 14 100/69 (79) 96 04/02/20 06:00 102/69 04/02/20 06:00 85 14 102/69 (80) 95 04/02/20 05:48 112/74 04/02/20 05:45 87 14 112/74 (87) 96 04/02/20 05:30 88 14 108/74 (85) 96 04/02/20 05:15 88 14 106/73 (84) 96 04/02/20 05:00 109/70 04/02/20 05:00 89 14 109/70 (83) 96 04/02/20 04:30 92 15 109/75 (86) 93 04/02/20 04:00 100 04/02/20 04:00 98.7 89 14 96/69 (78) 93 04/02/20 04:00 89 04/02/20 04:00 96/69 04/02/20 04:00 Mechanical Ventilator 04/02/20 03:30 89 14 98/67 (77) 93 04/02/20 03:00 89 14 96/65 (75) 93 04/02/20 03:00 96/65 04/02/20 02:55 89 14 93 Mechanical Ventilator 100 89 14 100 04/02/20 02:45 89 14 99/67 (78) 93 04/02/20 02:30 89 14 99/69 (79) 93 04/02/20 02:00 90 14 98/67 (77) 90 6/29/20 02:00 98/67 04/02/20 01:57 99/65 04/02/20 01:30 89 14 97/64 (75) 93 04/02/20 01:00 96/70 04/02/20 01:00 90 14 96/70 (79) 93 04/02/20 00:30 89 14 97/68 (78) 93 04/02/20 00:00 100 04/02/20 00:00 Mechanical Ventilator 04/02/20 00:00 103/69 04/02/20 00:00 90 04/02/20 00:00 98.1 90 14 103/69 (80) 93 04/01/20 23:30 89 14 100/71 (81) 93 04/01/20 23:19 89 14 94 Mechanical Ventilator 100 100 14 100 04/01/20 23:00 102/71 04/01/20 23:00 90 14 102/71 (81) 93 04/01/20 22:30 89 14 101/66 (78) 93 04/01/20 22:00 90 14 105/70 (82) 93 04/01/20 22:00 105/70 04/01/20 21:30 92 14 107/76 (86) 91 04/01/20 21:04 103/70 04/01/20 21:00 105/72 04/01/20 21:00 93 14 105/72 (83) 91 04/01/20 20:30 94 14 106/74 (85) 91 04/01/20 20:00 98.9 94 15 105/74 (84) 92 04/01/20 20:00 105/74 04/01/20 20:00 Mechanical Ventilator 04/01/20 20:00 100 04/01/20 19:45 96 14 111/75 (87) 91 04/01/20 19:45 111/75 04/01/20 19:42 96 04/01/20 19:30 97 14 116/73 (87) 92 04/01/20 19:26 97 14 92 Mechanical Ventilator 100 100 14 100 04/01/20 19:00 97 14 150/103 (119) 95 04/01/20 18:45 93 14 121/94 (103) 96 04/01/20 18:30 84 14 92/63 (73) 89 04/01/20 18:00 112/59 04/01/20 18:00 84 14 112/59 (76) 92 04/01/20 17:30 98.5 80 14 145/90 (108) 97 04/01/20 17:15 74 14 89/57 (68) 95 04/01/20 17:02 77 97/61 04/01/20 17:00 77 14 124/79 (94) 96 04/01/20 16:53 75 14 63/44 (50) 90 04/01/20 16:45 74 14 56/34 (41) 90 04/01/20 16:40 78 14 106/65 (79) 90 04/01/20 16:31 97/61 04/01/20 16:30 76 14 53/30 (38) 96 04/01/20 16:16 80 15 91/61 (71) 92 04/01/20 16:00 100 04/01/20 16:00 Mechanical Ventilator 04/01/20 16:00 99.3 71 14 97/61 (73) 94 04/01/20 16:00 75 04/01/20 15:30 83 14 106/71 (83) 94 04/01/20 15:18 83 14 100 04/01/20 15:00 83 14 110/65 (80) 93 04/01/20 14:45 82 14 108/63 (78) 93 04/01/20 14:30 82 14 113/64 (80) 94 04/01/20 14:15 81 14 110/68 (82) 94 04/01/20 14:00 81 14 116/68 (84) 95 04/01/20 13:45 81 14 105/72 (83) 95 04/01/20 13:30 82 14 118/73 (88) 96 04/01/20 13:15 82 14 128/86 (100) 94 04/01/20 13:03 113/73 04/01/20 13:00 99 19 109/63 (78) 98 04/01/20 12:45 79 14 102/69 (80) 94 04/01/20 12:30 79 14 102/68 (79) 94 04/01/20 12:15 80 14 106/65 (79) 95 04/01/20 12:00 Mechanical Ventilator 04/01/20 12:00 98.7 77 14 113/73 (86) 96 04/01/20 12:00 82 108/63 04/01/20 12:00 100 04/01/20 12:00 75 04/01/20 11:45 77 14 121/68 (85) 97 04/01/20 11:40 76 14 126/94 (105) 97 04/01/20 11:30 76 14 89/64 (72) 95 04/01/20 11:15 75 14 91/63 (72) 95 04/01/20 11:09 76 14 95 Mechanical Ventilator 100 75 14 100 04/01/20 11:00 75 14 94/64 (74) 95 Height (Feet): 5 Height (Inches): 5.00 Weight (Pounds): 115 HEENT: other - intubated Respiratory/Chest: lungs clear Cardiovascular: normal rate, regular rhythm, no gallop/murmur Abdomen: soft, non tender Extremities: no edema, other - left arm PICC Laboratory Tests Test 04/02/20 04:07 04/02/20 08:35 White Blood Count 30.4 K/UL (4.8-10.8) *H Red Blood Count 4.15 M/UL (4.20-5.40) L Hemoglobin 12.7 G/DL (12.0-16.0) Hematocrit 41.4 % (37.0-47.0) Mean Corpuscular Volume 100 FL (80-99) H Mean Corpuscular Hemoglobin 30.6 PG (27.0-31.0) Mean Corpuscular Hemoglobin Concent 30.7 G/DL (32.0-36.0) L Red Cell Distribution Width 14.6 % (11.6-14.8) Platelet Count 438 K/UL (150-450) Mean Platelet Volume 7.4 FL (6.5-10.1) Neutrophils (%) (Auto) % (45.0-75.0) Lymphocytes (%) (Auto) % (20.0-45.0) Monocytes (%) (Auto) % (1.0-10.0) Eosinophils (%) (Auto) % (0.0-3.0) Basophils (%) (Auto) % (0.0-2.0) Differential Total Cells Counted 100 Neutrophils % (Manual) 88 % (45-75) H Lymphocytes % (Manual) 10 % (20-45) L Monocytes % (Manual) 2 % (1-10) Eosinophils % (Manual) 0 % (0-3) Basophils % (Manual) 0 % (0-2) Band Neutrophils 0 % (0-8) Platelet Estimate Adequate Platelet Morphology Normal Anisocytosis 1+ Macrocytosis 1+ Sodium Level 158 MMOL/L (136-145) H Potassium Level 3.6 MMOL/L (3.5-5.1) Chloride Level 118 MMOL/L (98-107) H Carbon Dioxide Level 34 MMOL/L (21-32) H Anion Gap 6 mmol/L (5-15) Blood Urea Nitrogen 13 mg/dL (7-18) Creatinine 0.9 MG/DL (0.55-1.30) Estimat Glomerular Filtration Rate > 60 mL/min (>60) Glucose Level 86 MG/DL (74-106) Calcium Level 9.0 MG/DL (8.5-10.1) Arterial Blood pH 7.394 (7.350-7.450) Arterial Blood Partial Pressure CO2 52.2 mmHg (35.0-45.0) H Arterial Blood Partial Pressure O2 62.4 mmHg (75.0-100.0) L Arterial Blood HCO3 31.2 mmol/L (22.0-26.0) H Arterial Blood Oxygen Saturation 91.9 % (95-100) L Arterial Blood Base Excess 5.1 (-2-2) H Keith Test Positive Current Medications Medications (Trade) Dose Ordered Sig/Ranjeet Route PRN Reason Start Time Stop Time Status Last Admin Dose Admin Acetaminophen (Tylenol) 650 mg Q4H PRN NG Mild Pain (1-3)/Fever > 100.5 03/22/20 15:30 04/10/20 19:29 Albuterol Sulfate (Proventil MDI) 2 puff Q4HRT INH 03/18/20 15:00 06/13/20 02:59 04/02/20 08:27 Ascorbic Acid (Vitamin C) 500 mg DAILY NG 03/23/20 09:00 04/11/20 08:59 04/02/20 09:12 Atropine Sulfate (Atropine) 1 mg Q1H PRN IVP HR <40BPM 03/18/20 13:30 04/17/20 13:29 03/31/20 14:58 Chlorhexidine Gluconate (Mary-Hex 2%) 1 applic DAILY@2000 TOPIC 03/21/20 20:00 06/19/20 19:59 04/01/20 19:57 Clonidine HCl (Catapres Tab) 0.1 mg Q4H PRN NG For High Blood Pressure 03/31/20 16:45 06/29/20 16:44 03/31/20 16:45 Heparin Sodium (Porcine) (Heparin 5000 units/ml) 5,000 units EVERY 12 HOURS SUBQ 03/18/20 21:00 04/25/20 20:59 04/02/20 09:14 Lactulose (Cephulac) 30 gm THREE TIMES A DAY NG 03/22/20 18:00 04/18/20 09:14 04/02/20 09:12 Levofloxacin (Levaquin) 750 mg DAILY NG 03/29/20 10:30 04/05/20 10:29 04/02/20 09:12 Levothyroxine Sodium (Synthroid) 150 mcg DAILY@0630 ORAL 03/31/20 06:30 04/30/20 06:29 04/02/20 05:47 Loratadine (Claritin 10mg) 10 mg DAILY ORAL 03/23/20 09:00 04/11/20 08:59 04/02/20 09:12 Magnesium Hydroxide (Mom) 30 ml HSPRN PRN NG Constipation 03/22/20 15:30 04/17/20 13:59 Midodrine (Pro-Amatine) 10 mg THREE TIMES A DAY NG 03/24/20 13:00 06/21/20 08:59 04/02/20 09:12 Multivitamins (Multivitamins W/ Minerals 15ml Liquid) 15 ml DAILY NG 03/23/20 09:00 04/11/20 08:59 04/02/20 09:12 Norepinephrine Bitartrate 8 mg/ Dextrose 250 ml @ 0 mls/hr Q24H IV 04/01/20 13:30 05/01/20 13:29 04/02/20 05:48 Pantoprazole (Protonix) 40 mg DAILY IVP 03/23/20 09:00 04/22/20 08:59 04/02/20 09:12 Phenylephrine HCl 50 mg/Dextrose 250 ml @ 0 mls/hr Q24H IV 04/01/20 12:00 05/01/20 11:59 04/02/20 07:37 Sodium Chloride 1,000 ml @ 100 mls/hr Q10H IV 04/02/20 09:00 05/02/20 08:59 04/02/20 09:13 Zinc Sulfate (Zinc Sulfate) 220 mg DAILY NG 03/23/20 09:00 06/10/20 08:59 04/02/20 09:12 Eh Bailey MD Apr 02, 2020 10:56
--- NOTE | 2020-04-02 11:08 | NUR ---
RADIOLOGY DEPT., CHEST X-RAY DONE.-P.DYE
--- NOTE | 2020-04-02 11:10 | Diagnostic Imaging Report ---
Indication: Shortness of breath Technique: One view of the chest Comparison: 03/31/2020 Findings: Band of platelike atelectasis is seen in the right perihilar region. There is increased obscuration of the left hemidiaphragm and increased retrocardiac consolidation. The heart size is normal. Stable satisfactory positions of endotracheal and orogastric tubes Impression: Increasing left basilar and retrocardiac consolidation, likely pneumonia
--- NOTE | 2020-04-02 11:58 | NUR ---
*-* INSURANCE *-* ALL AVAILABLE CLINICALS HAVE BEEN FAXED TO; [facility] F: [phone] REF #[id number]
--- NOTE | 2020-04-02 12:29 | NUR ---
NURSE NOTES: LATE ENTRY: MD GOODE HERE TO SEE PT. WAS INFORMED OF TUBE FEED OFF FOR RESIDUAL 150CC, AT NOON 120CC. NO BM SINCE 03/30, ON LACTULOSE TID, ABD XRY SHOWS DILATED GAS FILLED LOOPS OF LARGE BOWEL, POSSIBLE ILEUS OR OBSTRUCTION, RECOMMENDED REGLAN. MD WILL LOOK AT RESULTS. NO NEW ORDERS.
[2020-04-02] MEDS: Cefepime HCl 2 GM in D5W 55 ML IVPB SCH ×2 (12:37→23:35)
--- NOTE | 2020-04-02 15:36 | Surgery Progress Note ---
Surgery Progress Note Subjective Additional Comments no reflex prognosis guarded exam unchanged on support unable to wean extubate safely Objective Last 24 Hour Vital Signs Date Time Temp Pulse Resp B/P (MAP) Pulse Ox O2 Delivery O2 Flow Rate FiO2 04/02/20 14:15 94 15 91/63 (72) 97 04/02/20 14:00 91 14 111/73 (86) 96 04/02/20 13:45 92 14 113/81 (92) 98 04/02/20 13:30 87 14 86/57 (67) 95 04/02/20 13:15 91 14 98/66 (77) 94 04/02/20 13:00 99.9 92 14 108/68 (81) 96 04/02/20 12:00 95 14 97 04/02/20 12:00 Mechanical Ventilator 04/02/20 12:00 100 04/02/20 12:00 95 04/02/20 11:45 95 14 112/67 (82) 97 04/02/20 11:30 96 14 120/80 (93) 97 04/02/20 11:15 98 14 117/79 (92) 96 04/02/20 11:00 99 14 136/86 (103) 98 04/02/20 10:58 97 14 98 Mechanical Ventilator 100 98 14 100 04/02/20 10:54 67/49 04/02/20 10:51 92 14 125/88 (100) 96 04/02/20 10:49 81 14 67/49 (55) 94 04/02/20 10:47 80 14 42/24 (30) 93 04/02/20 10:30 88 14 94/70 (78) 96 04/02/20 10:15 88 14 98/67 (77) 96 04/02/20 10:00 88 14 102/69 (80) 95 04/02/20 09:45 89 14 106/73 (84) 96 04/02/20 09:30 89 14 98/75 (83) 95 04/02/20 09:15 88 14 102/71 (81) 96 04/02/20 09:00 88 14 105/70 (82) 96 04/02/20 08:45 87 14 105/73 (84) 97 04/02/20 08:30 87 14 101/73 (82) 96 04/02/20 08:15 88 14 107/73 (84) 96 6/29/20 08:00 100 04/02/20 08:00 Mechanical Ventilator 04/02/20 08:00 87 04/02/20 08:00 98.8 85 14 107/73 (84) 95 04/02/20 07:37 84 104/71 04/02/20 07:29 87 14 97 Mechanical Ventilator 100 88 14 100 04/02/20 07:00 84 14 104/73 (83) 96 04/02/20 07:00 104/73 04/02/20 06:30 84 14 100/69 (79) 96 04/02/20 06:00 102/69 04/02/20 06:00 85 14 102/69 (80) 95 04/02/20 05:48 112/74 04/02/20 05:45 87 14 112/74 (87) 96 04/02/20 05:30 88 14 108/74 (85) 96 04/02/20 05:15 88 14 106/73 (84) 96 04/02/20 05:00 109/70 04/02/20 05:00 89 14 109/70 (83) 96 04/02/20 04:30 92 15 109/75 (86) 93 04/02/20 04:00 100 04/02/20 04:00 98.7 89 14 96/69 (78) 93 04/02/20 04:00 89 04/02/20 04:00 96/69 04/02/20 04:00 Mechanical Ventilator 04/02/20 03:30 89 14 98/67 (77) 93 04/02/20 03:00 89 14 96/65 (75) 93 04/02/20 03:00 96/65 04/02/20 02:55 89 14 93 Mechanical Ventilator 100 89 14 100 04/02/20 02:45 89 14 99/67 (78) 93 04/02/20 02:30 89 14 99/69 (79) 93 04/02/20 02:00 90 14 98/67 (77) 90 04/02/20 02:00 98/67 04/02/20 01:57 99/65 04/02/20 01:30 89 14 97/64 (75) 93 04/02/20 01:00 96/70 04/02/20 01:00 90 14 96/70 (79) 93 04/02/20 00:30 89 14 97/68 (78) 93 04/02/20 00:00 100 04/02/20 00:00 Mechanical Ventilator 04/02/20 00:00 103/69 04/02/20 00:00 90 04/02/20 00:00 98.1 90 14 103/69 (80) 93 04/01/20 23:30 89 14 100/71 (81) 93 04/01/20 23:19 89 14 94 Mechanical Ventilator 100 100 14 100 04/01/20 23:00 102/71 04/01/20 23:00 90 14 102/71 (81) 93 04/01/20 22:30 89 14 101/66 (78) 93 04/01/20 22:00 90 14 105/70 (82) 93 04/01/20 22:00 105/70 04/01/20 21:30 92 14 107/76 (86) 91 04/01/20 21:04 103/70 04/01/20 21:00 105/72 04/01/20 21:00 93 14 105/72 (83) 91 04/01/20 20:30 94 14 106/74 (85) 91 04/01/20 20:00 98.9 94 15 105/74 (84) 92 04/01/20 20:00 105/74 04/01/20 20:00 Mechanical Ventilator 04/01/20 20:00 100 04/01/20 19:45 96 14 111/75 (87) 91 04/01/20 19:45 111/75 04/01/20 19:42 96 04/01/20 19:30 97 14 116/73 (87) 92 04/01/20 19:26 97 14 92 Mechanical Ventilator 100 100 14 100 04/01/20 19:00 97 14 150/103 (119) 95 04/01/20 18:45 93 14 121/94 (103) 96 04/01/20 18:30 84 14 92/63 (73) 89 04/01/20 18:00 112/59 04/01/20 18:00 84 14 112/59 (76) 92 04/01/20 17:30 98.5 80 14 145/90 (108) 97 04/01/20 17:15 74 14 89/57 (68) 95 04/01/20 17:02 77 97/61 04/01/20 17:00 77 14 124/79 (94) 96 04/01/20 16:53 75 14 63/44 (50) 90 04/01/20 16:45 74 14 56/34 (41) 90 04/01/20 16:40 78 14 106/65 (79) 90 04/01/20 16:31 97/61 04/01/20 16:30 76 14 53/30 (38) 96 04/01/20 16:16 80 15 91/61 (71) 92 04/01/20 16:00 100 04/01/20 16:00 Mechanical Ventilator 04/01/20 16:00 99.3 71 14 97/61 (73) 94 04/01/20 16:00 75 I&O Intake and Output 04/01/20 04/02/20 19:00 07:00 Intake Total 856.250 ml 1099.50 ml Output Total 2450 ml 1550 ml Balance -1593.750 ml -450.50 ml IV Total 586.250 ml 889.50 ml Tube Feeding 220 ml 150 ml Other 50 ml 60 ml Output Urine Total 2450 ml 1550 ml Dressing: other Wound: other Drains: other Cardiovascular: RSR Respiratory: decreased breath sounds Abdomen: soft, non-tender, present bowel sounds Extremities: no cyanosis Laboratory Tests Test 04/02/20 04:07 04/02/20 08:35 White Blood Count 30.4 K/UL (4.8-10.8) *H Red Blood Count 4.15 M/UL (4.20-5.40) L Hemoglobin 12.7 G/DL (12.0-16.0) Hematocrit 41.4 % (37.0-47.0) Mean Corpuscular Volume 100 FL (80-99) H Mean Corpuscular Hemoglobin 30.6 PG (27.0-31.0) Mean Corpuscular Hemoglobin Concent 30.7 G/DL (32.0-36.0) L Red Cell Distribution Width 14.6 % (11.6-14.8) Platelet Count 438 K/UL (150-450) Mean Platelet Volume 7.4 FL (6.5-10.1) Neutrophils (%) (Auto) % (45.0-75.0) Lymphocytes (%) (Auto) % (20.0-45.0) Monocytes (%) (Auto) % (1.0-10.0) Eosinophils (%) (Auto) % (0.0-3.0) Basophils (%) (Auto) % (0.0-2.0) Differential Total Cells Counted 100 Neutrophils % (Manual) 88 % (45-75) H Lymphocytes % (Manual) 10 % (20-45) L Monocytes % (Manual) 2 % (1-10) Eosinophils % (Manual) 0 % (0-3) Basophils % (Manual) 0 % (0-2) Band Neutrophils 0 % (0-8) Platelet Estimate Adequate Platelet Morphology Normal Anisocytosis 1+ Macrocytosis 1+ Sodium Level 158 MMOL/L (136-145) H Potassium Level 3.6 MMOL/L (3.5-5.1) Chloride Level 118 MMOL/L (98-107) H Carbon Dioxide Level 34 MMOL/L (21-32) H Anion Gap 6 mmol/L (5-15) Blood Urea Nitrogen 13 mg/dL (7-18) Creatinine 0.9 MG/DL (0.55-1.30) Estimat Glomerular Filtration Rate > 60 mL/min (>60) Glucose Level 86 MG/DL (74-106) Calcium Level 9.0 MG/DL (8.5-10.1) Arterial Blood pH 7.394 (7.350-7.450) Arterial Blood Partial Pressure CO2 52.2 mmHg (35.0-45.0) H Arterial Blood Partial Pressure O2 62.4 mmHg (75.0-100.0) L Arterial Blood HCO3 31.2 mmol/L (22.0-26.0) H Arterial Blood Oxygen Saturation 91.9 % (95-100) L Arterial Blood Base Excess 5.1 (-2-2) H Keith Test Positive Plan Problems: (1) Malnutrition Assessment & Plan: not eating enough TF started adv as tolerated bowel regimen DDAILY ESTIMATED NEEDS: Needs based on Wound, pulmonary / 56kg 25-35 kcals/kg 3859-2881 total kcals 1.25-1.8 g protein/kg 70-100 g total protein 25-30 mL/kg 6576-9949 total fluid mLs NUTRITION DIAGNOSIS: * Swallowing difficulty R/T dysphagia as evidenced by COMPLIANCE EXAMINER w/ rec for NPO, now on NGT feeds. * Increased kcal/prot/micronutrients needs R/T wound healing as evidenced by pt admitted w/ multiple wounds including full thickness wound @ sacrum, TPI wound @ L Gluteal cheek, and non-Blanchable erythema @ BL heels. CURRENT TF:Jevity 1.2 @30ml/hr ENTERAL NUTRITION RECOMMENDATIONS: JEVITY 1.2 goal of 55ml/hr x24 hrs to provide 1320ml, 1584 kcal, 73g pro, 1065ml free H2O - rec to INCREASE current TF as tolerated to goal of 55ml/hr to better meet est needs. - flush per , HOB over 30 degrees ADDITIONAL RECOMMENDATIONS: * Per SNF: HT=66" IA=042wvy (03/07/20) * Wound healing: continue MVI, Vit C, and ZnSO4 * VIA NGT-> add TONI BID for wound care TF recs as above * Monitor lytes, replete as needed THIS 60 Y.O.M. WAS ADMITTED WITH ACUTE ISSUES - FEVER, HYPOXIC WITH LOW 02 SATS ON NON-REBREATHER, RESP RATE 18 BPM INITIALLY PER MEDICAL RECORD. PER RN, THE PATIENT HAD A RAPID RESPOSE THIS MORNING (DESAT TO 90S AND RAPID RESP RATE). H/O COPD, CARDIAC DZ, HYPOTHYROIDISM, HTN, ALLERGIC RHINITIS, SCHIZOPHRENIA (ON OLANZAPINE AT SNF), BASELINE NONVERBAL. PER POLST FULL TX BUT NO INFORMATION REGARDING TUBE FEEDING PREFERENCES. AT SNF ON A REGULAR DIET TEXTURE AND THIN LIQUIDS WITH PROSTAT SF DRINK WITH MEALS. NOW ON A REGULAR TEXTURE DIET AND THIN LIQUIDS BUT DID NOT TAKE ANY PO. PER LAURIE EARLY, THE PT UNABLE TO TAKE LARGE PILLS BUT APPEARED TO TOLERATE CRUSHED MEDS WITH APPLESAUCE W/O OVERT ASPIRATION. PATIENT SEEN WITH FUNMI HEATH. PER RT RESP RATE 22 BPM AND NOT ABLE TO ongoing unintelligible confabulations. Patient did request a sandwich, however, not appropriate for regular texture at this time. VITALS ON 2 L NASAL CANNULA: HR: 73; RR: 20; SP02: 95% Patient's oral hygiene is improving, ongoing poor speech intelligibility which appears to be more due to poor articulation precision/oral motor coordination versus 2/2 dry mouth. CXR on 03/14/20: Findings: Interim considerable improvement of previously demonstrated left lower lobe infiltrate. There is a residual disease in the retrocardiac region as well as generalized reticular interstitial opacities throughout the left mid and lower lung. There is questionably a 3 cm spiculated opacity projected over the apex. Minimal right mid and lower lung reticular opacities are also demonstrated. There is some right midlung atelectasis versus thickening of the minor fissure. The heart size is normal. The pleural spaces are clear Impression: Considerable improvement the persistence of previously demonstrated left mid and lower lung infiltrates, since prior study of 03/11/2020. COMPLIANCE EXAMINER plans to continue to f/u and monitor Patients readiness for PO trials for diet texture upgrade. RN aware of recommendations, plan, and aspiration precautions sign posted above Patients HOB. RECOMMENDATIONS: 1. Continue Moist Puree with Cricket Thick Liquids Diet via 1 to 1 careful handfeeding while implementing posted aspiration precautions - RD recommendations appreciated for diet texture/type 2. Patient requires oral hygiene BID + lip moisturizer. (2) Decubitus skin ulcer Assessment & Plan: Pt presented on admission with multiple pressure injuries. Full thickness Pressure injury Sacrococcygeal area. (L)4cm x (W)2.5cm. Base of wound is fatou with scattered slough ,which was easily removed with gentle friction. Wound is now fatou with 25% soft necrosis at distal base of wound. Small amt sanguineous exudate noted.No odor noted. Periwound erythematous and denuded. Two additional Pressure Injuries noted to R gluteal cheek.(Proximal) Base of wound is purple and indurated(L)3cm x (W)1.5cm. Surrounding erythematous and denuded skin (Distal) R gluteus(L)1.4cm x (W)0.6cm. Base of wound is purple, indurated with surrounding erythematous and denuded skin. DTPI L Gluteal cheek (L)1.5cm x (W)1.3cm. Base of wound is indurated, purple with surrounding non-blanching erythema. Additional scattered areas that are maroon in colour noted to L gluteal cheek. Lateral L Heel boggy with non-blanching erythema with delineated margins. (L) 4cm x (W)4.5cm. Lateral R Heel Boggy with non-Blanchable erythema with delineated margins(L) 2.5cm x (W)2.5cm. Tx.Plan: Cleanse Sacrococcygeal area with saline. Apply TheraHoney , Apply Moisture Barrier Paste to Sacrum, R and L Buttocks. Cover entire Area with Optifoam drsgs. Change every 3 days and prn. Apply Moisture Barrier Paste to R and L Buttocks . Cover with Optifoam drsgs. Changee very 3 days and prn. Apply Cavilon Skin Barrier to R and L Trochanteric areas. Cover with Optifoam drsg. Change every 7 days and prn. Apply Cavilon Skin Barrier to R and L Heels. Cover each heel with Optifoam drsg. Change every 7 days and prn. Reposition at least every 2hours or as tolerated. Off-load heels with Pillow. APM/ERIK Mattress. (3) Pneumonia Assessment & Plan: Lungs: There is mild left lower lobe infiltrate consistent with pneumonia. Pleural space: Unremarkable. No pneumothorax. Heart: The heart size is at the upper limits of normal. Mediastinum: Unremarkable. Bones/joints: Unremarkable. IMPRESSION: There is mild left lower lobe infiltrate consistent with pneumonia. worsening on bipap now will monitor closely intubated now 03/21 wean vent Continue weaning. Will hopefully be extubated potentially. Gases noted. (4) COPD (chronic obstructive pulmonary disease) Assessment & Plan: On vent support weaning Potential extubation soon not able to extubate as not safe with current status possible withdraw care as no function possible brain (5) Fever Eddie Perez Apr 02, 2020 15:36
--- NOTE | 2020-04-02 16:02 | NUR ---
NURSE NOTES: LATE ENTRY: CALLED MD TERRAZAS TO RECOMMEND CHANGE IN PEEP. PT DESATING 80'S, FI02 100%, PEEP 5. RECEIVED ORDER FOR INCREASE PEEP 10. INFORMED R.T. PT SUCTIONED, PULSE OX CHANGED. BP HYPOTENSIVE ADJUSTED DRIPS.
--- NOTE | 2020-04-02 17:43 | NUR ---
NURSE NOTES:WOUND CARE FOLLOW-UP NOTES:Wounds are resolving. Unstageable Sacral Pressure injury with 100% slough(L)6.5cm x (W)3.5cm. Edges adherent to base of wound . Surrounding sacrum,R and L buttocks is maroon without induration.NO odor or exudate noted from wound. Bilat heels are boggy but both heels are easily blanchable. Incontinence associated dermatitis resolving. Perineum, R and L ischium and medial aspects of upper thighs are less erythematous and skin is now dry. Wound Tx are effective and continued as ordered. Wound prevention protocols continued as care-planned. Pt has an APM /ERIK Mattress overlay and is positioned with pillows as per tolerance and within protocols. Both heels are floated off mattress with pillows.
[2020-04-02] MEDS: Dyna-Hex 2% Top Sol 2oz TOPIC SCH (19:29)
--- NOTE | 2020-04-02 19:34 | NUR ---
HAND-OFF: Report given to LEODAN LAND IN NO ACUTE DISTRESS. Addendum: 04/02/20 at 1937 by Tamika Pascual RN to Bobby Rosario
--- NOTE | 2020-04-02 19:41 | NUR ---
NURSE NOTES: PATIENT NO RESPONSE TO VERBALLY AND TACTILE STIMULI, COMATOSE STATUS, ON ETT TO VENT, AC 14/TV500/FIO2 100%/PEEP 10, O2 SATURATION 96% NOTED, HR 100'S/MIN ST NOTED, NGT TO LEFT NARES, INTACT AND PATENT, HOLD FEEDING STATUS, KEPT HOB 30 DEGREES AND ASPIRATION PRECAUTION, F/C INTACT AND PATENT, YELLOW URINE OUTED, PICC LINE TO LEFT UPPER ARM, INTACT AND PATENT, ONGOING LEVOPHED 30MCG/MIN, PHENYLEPHRINE 150MCG/MIN AND IV FLUID 1/2 NS AT 100ML/HR VIA PICC LINE, ON P200 BED, MADE LOWER BED POSITION, ON BED ALARM AND LOCKED, PLACED CALL LIGHT WITHIN REACH, WILL CONTINUE TO MONITOR.
--- NOTE | 2020-04-02 20:40 | General Progress Note ---
Assessment/Plan Status: stable, progressing Assessment/Plan: Assessment - Resp failure - dysphagia - COPD - Anemia - leukocytosis - improved - hypothyroid Recommendations - pulmonary f/u - Tube feeds - elevate HOB - follow labs and exam - PEG placement on hold Subjective Allergies: Coded Allergies: PENICILLINS (Verified Allergy, Unknown, 03/11/20) Subjective Above noted seen in ICU on vent d/w RN Objective Last 24 Hour Vital Signs Date Time Temp Pulse Resp B/P (MAP) Pulse Ox O2 Delivery O2 Flow Rate FiO2 04/02/20 20:16 116/85 04/02/20 19:40 103 14 98 Mechanical Ventilator 100 103 14 100 04/02/20 19:00 104 14 117/78 (91) 97 04/02/20 18:30 106 14 115/83 (94) 97 04/02/20 18:24 106 112/80 04/02/20 18:15 107 14 112/80 (91) 98 04/02/20 18:00 109 14 110/83 (92) 96 04/02/20 17:30 115 14 129/92 (104) 98 04/02/20 17:22 108 14 150/97 (114) 94 04/02/20 17:19 99 14 74/54 (61) 90 04/02/20 17:15 102 14 39/26 (30) 85 04/02/20 17:00 39/26 04/02/20 17:00 110 14 117/88 (98) 92 04/02/20 16:00 Mechanical Ventilator 04/02/20 16:00 91 04/02/20 16:00 100 04/02/20 15:57 110 14 172/107 (128) 96 04/02/20 15:55 107 14 72/51 (58) 93 04/02/20 15:45 86 14 52/36 (41) 85 04/02/20 15:42 85/42 04/02/20 15:35 101 14 188/110 (136) 87 04/02/20 15:30 84 14 40/25 (30) 83 04/02/20 15:28 94 14 84 Mechanical Ventilator 100 95 14 100 04/02/20 15:15 92 14 58/35 (43) 95 04/02/20 15:00 93 14 102/71 (81) 95 04/02/20 15:00 102/75 04/02/20 14:15 94 15 91/63 (72) 97 04/02/20 14:00 111/73 04/02/20 14:00 91 14 111/73 (86) 96 04/02/20 13:45 92 14 113/81 (92) 98 04/02/20 13:30 87 14 86/57 (67) 95 04/02/20 13:15 91 14 98/66 (77) 94 04/02/20 13:00 108/68 04/02/20 13:00 99.9 92 14 108/68 (81) 96 04/02/20 12:00 95 14 97 04/02/20 12:00 Mechanical Ventilator 04/02/20 12:00 107/75 04/02/20 12:00 100 04/02/20 12:00 95 04/02/20 11:45 95 14 112/67 (82) 97 04/02/20 11:30 96 14 120/80 (93) 97 04/02/20 11:15 98 14 117/79 (92) 96 04/02/20 11:00 99 14 136/86 (103) 98 04/02/20 10:58 97 14 98 Mechanical Ventilator 100 98 14 100 04/02/20 10:54 67/49 04/02/20 10:51 92 14 125/88 (100) 96 04/02/20 10:49 81 14 67/49 (55) 94 04/02/20 10:47 80 14 42/24 (30) 93 04/02/20 10:30 88 14 94/70 (78) 96 04/02/20 10:15 88 14 98/67 (77) 96 04/02/20 10:00 88 14 102/69 (80) 95 04/02/20 09:45 89 14 106/73 (84) 96 04/02/20 09:30 89 14 98/75 (83) 95 04/02/20 09:15 88 14 102/71 (81) 96 04/02/20 09:00 88 14 105/70 (82) 96 04/02/20 09:00 105/70 04/02/20 08:45 87 14 105/73 (84) 97 04/02/20 08:30 87 14 101/73 (82) 96 04/02/20 08:15 88 14 107/73 (84) 96 04/02/20 08:00 100 04/02/20 08:00 Mechanical Ventilator 04/02/20 08:00 107/73 04/02/20 08:00 87 04/02/20 08:00 98.8 85 14 107/73 (84) 95 04/02/20 07:37 84 104/71 04/02/20 07:29 87 14 97 Mechanical Ventilator 100 88 14 100 04/02/20 07:00 84 14 104/73 (83) 96 04/02/20 07:00 104/73 04/02/20 06:30 84 14 100/69 (79) 96 04/02/20 06:00 102/69 04/02/20 06:00 85 14 102/69 (80) 95 04/02/20 05:48 112/74 04/02/20 05:45 87 14 112/74 (87) 96 04/02/20 05:30 88 14 108/74 (85) 96 04/02/20 05:15 88 14 106/73 (84) 96 04/02/20 05:00 109/70 04/02/20 05:00 89 14 109/70 (83) 96 04/02/20 04:30 92 15 109/75 (86) 93 04/02/20 04:00 100 04/02/20 04:00 98.7 89 14 96/69 (78) 93 04/02/20 04:00 89 04/02/20 04:00 96/69 04/02/20 04:00 Mechanical Ventilator 04/02/20 03:30 89 14 98/67 (77) 93 04/02/20 03:00 89 14 96/65 (75) 93 04/02/20 03:00 96/65 04/02/20 02:55 89 14 93 Mechanical Ventilator 100 89 14 100 04/02/20 02:45 89 14 99/67 (78) 93 04/02/20 02:30 89 14 99/69 (79) 93 04/02/20 02:00 90 14 98/67 (77) 90 04/02/20 02:00 98/67 04/02/20 01:57 99/65 04/02/20 01:30 89 14 97/64 (75) 93 04/02/20 01:00 96/70 04/02/20 01:00 90 14 96/70 (79) 93 04/02/20 00:30 89 14 97/68 (78) 93 04/02/20 00:00 100 04/02/20 00:00 Mechanical Ventilator 04/02/20 00:00 103/69 04/02/20 00:00 90 04/02/20 00:00 98.1 90 14 103/69 (80) 93 04/01/20 23:30 89 14 100/71 (81) 93 04/01/20 23:19 89 14 94 Mechanical Ventilator 100 100 14 100 04/01/20 23:00 102/71 04/01/20 23:00 90 14 102/71 (81) 93 04/01/20 22:30 89 14 101/66 (78) 93 04/01/20 22:00 90 14 105/70 (82) 93 04/01/20 22:00 105/70 04/01/20 21:30 92 14 107/76 (86) 91 04/01/20 21:04 103/70 04/01/20 21:00 105/72 04/01/20 21:00 93 14 105/72 (83) 91 Intake and Output 04/01/20 04/02/20 19:00 07:00 Intake Total 856.250 ml 1099.50 ml Output Total 2450 ml 1550 ml Balance -1593.750 ml -450.50 ml IV Total 586.250 ml 889.50 ml Tube Feeding 220 ml 150 ml Other 50 ml 60 ml Output Urine Total 2450 ml 1550 ml Laboratory Tests 04/02/20 04:07: White Blood Count 30.4*H, Red Blood Count 4.15L, Hemoglobin 12.7, Hematocrit 41.4, Mean Corpuscular Volume 100H, Mean Corpuscular Hemoglobin 30.6, Mean Corpuscular Hemoglobin Concent 30.7L, Red Cell Distribution Width 14.6, Platelet Count 438, Mean Platelet Volume 7.4, Neutrophils (%) (Auto) , Lymphocytes (%) (Auto) , Monocytes (%) (Auto) , Eosinophils (%) (Auto) , Basophils (%) (Auto) , Differential Total Cells Counted 100, Neutrophils % ( Manual) 88H, Lymphocytes % (Manual) 10L, Monocytes % (Manual) 2, Eosinophils % ( Manual) 0, Basophils % (Manual) 0, Band Neutrophils 0, Platelet Estimate Adequate, Platelet Morphology Normal, Anisocytosis 1+, Macrocytosis 1+, Sodium Level 158H, Potassium Level 3.6, Chloride Level 118H, Carbon Dioxide Level 34H, Anion Gap 6, Blood Urea Nitrogen 13, Creatinine 0.9, Estimat Glomerular Filtration Rate > 60, Glucose Level 86, Calcium Level 9.0 04/02/20 08:35: Arterial Blood pH 7.394, Arterial Blood Partial Pressure CO2 52.2H, Arterial Blood Partial Pressure O2 62.4L, Arterial Blood HCO3 31.2H, Arterial Blood Oxygen Saturation 91.9L, Arterial Blood Base Excess 5.1H, Keith Test Positive Height (Feet): 5 Height (Inches): 5.00 Weight (Pounds): 115 Objective Thin WW NCAT (+) ETT supple coarse BS RR abd soft NT ND no edema Douglas Tucker MD Apr 02, 2020 20:40
--- NOTE | 2020-04-02 22:00 | Electroencephalogram ---
DATE OF PROCEDURE: 04/01/2020 REQUESTING PHYSICIAN: Hola Harvey M.D. READING PHYSICIAN: Miguel Armas M.D. PROCEDURE PERFORMED: Electroencephalogram. HISTORY: This EEG was performed on a 60-year-old lady, who developed respiratory distress, had to be intubated, and since then has been comatose. The purpose of this EEG was to evaluate the patient for the degree and type of cerebral dysfunction. TECHNICAL NOTE: This EEG was performed on a [employer] with electrodes placed on the scalp according to the International 10-20 system. A special scalp to scalp montage with double distance electrodes was utilized. The EEG was technically satisfactory and was performed while the patient was in an unresponsive state. OBSERVATIONS: In the reportedly unresponsive state, no sign of electrical cerebral activity was seen at gains as high as 2 microvolts/mm using double distance electrodes. When the patient was stimulated with external stimuli, no change in the EEG background was noted. IMPRESSION: This is an abnormal EEG characterized by the lack of electrical cerebral activity. COMMENT: This study is consistent with electrical cerebral inactivity. Clinical correlation is recommended. Miguel Armas M.D., M.S.P.H. Clinical Neurophysiologist DR: CAROLYNN JOB#: [id number] MTDD
--- NOTE | 2020-04-02 22:00 | NUR ---
NURSE NOTES: REPOSITIONED, ORAL CARE WAS DONE, NO RESPONSE STATUS.
[2020-04-03] VITALS (50 sets, daily range): BP systolic 72–155; BP diastolic 41–102
--- NOTE | 2020-04-03 00:45 | NUR ---
NURSE NOTES: LE: VSS, ONGOING LEVOPHED 30MCG/MIN AND PHENYLEPHRINE 170MCG/MIN VIA PICC LINE, NO RESPONSE STATUS, WILL CONTINUE TO MONITOR.
--- NOTE | 2020-04-03 02:49 | NUR ---
NURSE NOTES: NO RESPONSE TO VERBALLY AND TACTILE STIMULI, NO GAG REFLEX STATUS, WILL CONTINUE TO MONITOR.
[2020-04-03] MEDS: Albuterol 90mcg Inhaler 8gm INH SCH ×6 (03:46→22:04)
[2020-04-03] MEDS: Phenylephrine 50 MG in D5W 245 ML IV SCH ×3 (04:14→23:36)
--- NOTE | 2020-04-03 05:30 | NUR ---
NURSE NOTES: LE: MORNING CARE AND ORAL CARE WAS DONE, ONGOING LEVOPHED 26MCG/MIN AND PHENYLEPHRINE 80MCG/MIN VIA PICC LINE, NO ACUTE DISTRESS NOTED AT THIS TIME.
--- NOTE | 2020-04-03 06:55 | NUR ---
NURSE NOTES: SEEN THE PATIENT BY
--- NOTE | 2020-04-03 07:10 | NUR ---
HAND-OFF: Report given to SHARATH JAMES.
--- NOTE | 2020-04-03 07:30 | NUR ---
NURSE NOTES: LATE ENTRY: RECEIVED REPORT FROM NUHA Baez PT NON RESPONSIVE TO PAIN, NO GAG, NO PUPIL ACTIVITY NOTED , 4MM. ETT 7.5, 23 CM AT LIP. VENT SETTINGS AC 14, VT 500, FI02 100%, PEEP 5. SECRETIONS MODERATE,THIN. ABDOMEN ROUND. CAP REFILL<3 SEC, NO JVD. NO BM. AZAR, DRAINING YELLOW URINE. BILATERAL RADIAL AND PEDAL PULSES THREADY. SKIN- SEE ASSESSMENT. IV ACCESS YUMIKO PICC. PATENT, DRESSING DRY AND INTACT. RUNNING LEVOPHED 16MCG/HR. PHENYLEPHRINE 80MCG/HR. PT AFEBRILE 98.6 AX. PT ON P200 AIR MATTRESS. CONTACT PRECAUTIONS IN PLACE. CALL LIGHT IN REACH. BED LOCKED, IN LOW POSITION, SIDE RAILS UP X2. BED ALARM ON. WILL CONTINUE TO MONITOR PT.
--- NOTE | 2020-04-03 08:49 | Critical Care Progress Note ---
Assessment/Plan Assessment/Plan IMPRESSION: 1. COPD 2. Hypercapnia and hypoxemia. 3. Pneumonia,mcc 4. Hypothyroidism. 5. History of allergies. 6. Severe protein-calorie malnutrition. 7. Mild leukocytosis. 8. acute respiratory failure/ failed extubation 9. pulmonary congestion 10. hypernatremia 11. ?brain care noted neuro needed to confirm brain detah respiratory care as is reviewed changes; monitor secretions- discussed care Ventilatory support as is; recommend trach monitor for CO2 retention and congestion maintain meds DVT prophylaxis; supportive care as is off load aspiration precautions position change and off load oxygen therapy as is prognosis poor possible removal of life support if brain confirmed by neuro EEG with inactivity medications/laboratory data/nursing notes/ICU care reviewed in detail note reviewed and edited care discussed with RN and RT ICU time spent >40 minutes Critical Care - Subjective Interval Events: EEG noted awaiting neuro evaluation ROS Limited/Unobtainable: Yes Condition: critical EKG Rhythm: Sinus Rhythm I&O: Intake and Output 04/02/20 04/03/20 19:00 07:00 Intake Total 1833.00 ml 2544.81 ml Output Total 915 ml 1300 ml Balance 918.00 ml 1244.81 ml IV Total 1823.00 ml 2439.81 ml Tube Feeding 0 ml 45 ml Other 10 ml 60 ml Output Urine Total 915 ml 1300 ml Critical Care - Objective ET-Tube: 7.5 ET Position: 23 Last 24 Hour Vital Signs Date Time Temp Pulse Resp B/P (MAP) Pulse Ox O2 Delivery O2 Flow Rate FiO2 04/03/20 07:19 86 14 100 Mechanical Ventilator 100 86 14 100 04/03/20 07:00 86 14 125/90 (102) 100 04/03/20 07:00 125/90 04/03/20 06:30 86 14 107/79 (88) 100 04/03/20 06:00 110/86 04/03/20 06:00 87 14 110/86 (94) 100 04/03/20 05:45 87 14 105/77 (86) 100 04/03/20 05:30 88 14 101/82 (88) 100 04/03/20 05:21 100/79 04/03/20 05:15 89 14 100/79 (86) 100 04/03/20 05:00 101/73 04/03/20 05:00 92 14 101/73 (82) 04/03/20 04:45 103 14 126/86 (99) 100 04/03/20 04:45 126/86 04/03/20 04:30 96 14 144/102 (116) 100 04/03/20 04:30 144/102 04/03/20 04:15 97 14 121/90 (100) 100 04/03/20 04:15 121/90 04/03/20 04:14 100 103/41 04/03/20 04:00 88 04/03/20 04:00 Mechanical Ventilator 04/03/20 04:00 97.6 88 14 103/41 (61) 100 04/03/20 04:00 103/41 04/03/20 04:00 100 04/03/20 03:46 96 14 100 Mechanical Ventilator 100 96 14 100 04/03/20 03:30 95 14 121/81 (94) 100 04/03/20 03:00 137/97 04/03/20 03:00 96 14 137/97 (110) 100 04/03/20 02:30 96 14 132/93 (106) 100 04/03/20 02:00 97 14 137/93 (108) 100 04/03/20 02:00 137/93 04/03/20 01:30 98 14 128/98 (108) 100 04/03/20 01:00 105/83 04/03/20 01:00 99 14 105/83 (90) 100 04/03/20 00:57 117/86 04/03/20 00:30 101 14 112/84 (93) 100 04/03/20 00:00 98.2 102 14 115/86 (96) 100 04/03/20 00:00 Mechanical Ventilator 04/03/20 00:00 115/86 04/03/20 00:00 102 04/03/20 00:00 100 04/02/20 23:45 103 14 118/83 (95) 100 04/02/20 23:30 104 14 123/91 (102) 100 04/02/20 23:15 102 14 104/79 (87) 100 04/02/20 23:14 102 14 98/77 (84) 99 04/02/20 23:10 99 14 100 Mechanical Ventilator 100 104 14 100 04/02/20 23:00 69/57 04/02/20 23:00 103 14 69/57 (61) 97 04/02/20 22:45 107 107/81 04/02/20 22:30 110 22 107/81 (90) 04/02/20 22:00 110 18 104/79 (87) 100 04/02/20 22:00 104/79 04/02/20 21:30 112 19 103/74 (84) 100 04/02/20 21:15 113 19 98/73 (81) 100 04/02/20 21:00 107/78 04/02/20 21:00 112 15 107/78 (88) 100 04/02/20 20:45 86/70 04/02/20 20:45 112 14 101/69 (80) 98 04/02/20 20:35 112 14 86/70 (75) 98 04/02/20 20:30 112 14 79/56 (64) 98 04/02/20 20:16 116/85 04/02/20 20:15 103 14 112/83 (93) 98 04/02/20 20:00 98.1 104 14 116/85 (95) 97 04/02/20 20:00 Mechanical Ventilator 04/02/20 20:00 116/85 04/02/20 20:00 100 04/02/20 19:45 105 14 101/83 (89) 96 04/02/20 19:40 103 14 98 Mechanical Ventilator 100 103 14 100 04/02/20 19:30 106 14 108/74 (85) 95 04/02/20 19:30 106 04/02/20 19:00 104 14 117/78 (91) 97 04/02/20 18:30 106 14 115/83 (94) 97 04/02/20 18:24 106 112/80 04/02/20 18:15 107 14 112/80 (91) 98 04/02/20 18:00 109 14 110/83 (92) 96 04/02/20 17:30 115 14 129/92 (104) 98 04/02/20 17:22 108 14 150/97 (114) 94 04/02/20 17:19 99 14 74/54 (61) 90 04/02/20 17:15 102 14 39/26 (30) 85 04/02/20 17:00 39/26 04/02/20 17:00 110 14 117/88 (98) 92 04/02/20 16:00 Mechanical Ventilator 04/02/20 16:00 91 04/02/20 16:00 100 04/02/20 15:57 110 14 172/107 (128) 96 04/02/20 15:55 107 14 72/51 (58) 93 04/02/20 15:45 86 14 52/36 (41) 85 04/02/20 15:42 85/42 04/02/20 15:35 101 14 188/110 (136) 87 04/02/20 15:30 84 14 40/25 (30) 83 04/02/20 15:28 94 14 84 Mechanical Ventilator 100 95 14 100 04/02/20 15:15 92 14 58/35 (43) 95 04/02/20 15:00 93 14 102/71 (81) 95 04/02/20 15:00 102/75 04/02/20 14:15 94 15 91/63 (72) 97 04/02/20 14:00 111/73 04/02/20 14:00 91 14 111/73 (86) 96 04/02/20 13:45 92 14 113/81 (92) 98 04/02/20 13:30 87 14 86/57 (67) 95 04/02/20 13:15 91 14 98/66 (77) 94 04/02/20 13:00 108/68 04/02/20 13:00 99.9 92 14 108/68 (81) 96 04/02/20 12:00 95 14 97 04/02/20 12:00 Mechanical Ventilator 04/02/20 12:00 107/75 04/02/20 12:00 100 04/02/20 12:00 95 04/02/20 11:45 95 14 112/67 (82) 97 04/02/20 11:30 96 14 120/80 (93) 97 04/02/20 11:15 98 14 117/79 (92) 96 04/02/20 11:00 99 14 136/86 (103) 98 04/02/20 10:58 97 14 98 Mechanical Ventilator 100 98 14 100 04/02/20 10:54 67/49 04/02/20 10:51 92 14 125/88 (100) 96 04/02/20 10:49 81 14 67/49 (55) 94 04/02/20 10:47 80 14 42/24 (30) 93 04/02/20 10:30 88 14 94/70 (78) 96 04/02/20 10:15 88 14 98/67 (77) 96 04/02/20 10:00 88 14 102/69 (80) 95 04/02/20 09:45 89 14 106/73 (84) 96 04/02/20 09:30 89 14 98/75 (83) 95 04/02/20 09:15 88 14 102/71 (81) 96 04/02/20 09:00 88 14 105/70 (82) 96 04/02/20 09:00 105/70 Objective: GENERAL: An ill-appearing female. NAD on Vent NECK: Supple. No adenopathy. LUNGS: Coarse breath sounds. Moderate air entry. ETT in place; no rhonchi or wheeze CARDIAC: S1, S2. Regular rate and rhythm without murmur. ABDOMEN: Soft, nontender, nondistended. feeding tube EXTREMITIES: No cyanosis, clubbing, or edema. obtunded on the vent reviewed and edited Javier Blake MD Apr 03, 2020 08:49
[2020-04-03] MEDS: Heparin 5000 units/ml inj SUBQ SCH ×2 (09:00→20:16)
--- NOTE | 2020-04-03 09:00 | NUR ---
NURSE NOTES: MD. GALARZA HERE. NO NEW ORDERS AT THIS TIME. SR W/ PAC'S, NO SINUS DAX EPISODES.
--- NOTE | 2020-04-03 09:27 | General Progress Note ---
Assessment/Plan Status: stable, progressing Assessment/Plan: Assessment - Resp failure - dysphagia - COPD - Anemia - leukocytosis - sepsis - hypothyroid - poor prognosis Recommendations - pulmonary f/u - Tube feeds - elevate HOB - follow labs and exam - abx - PEG placement on hold Subjective Allergies: Coded Allergies: PENICILLINS (Verified Allergy, Unknown, 03/11/20) Subjective Above noted seen in ICU on vent d/w RN on pressors Objective Last 24 Hour Vital Signs Date Time Temp Pulse Resp B/P (MAP) Pulse Ox O2 Delivery O2 Flow Rate FiO2 04/03/20 07:19 86 14 100 Mechanical Ventilator 100 86 14 100 04/03/20 07:00 86 14 125/90 (102) 100 04/03/20 07:00 125/90 04/03/20 06:30 86 14 107/79 (88) 100 04/03/20 06:00 110/86 04/03/20 06:00 87 14 110/86 (94) 100 04/03/20 05:45 87 14 105/77 (86) 100 04/03/20 05:30 88 14 101/82 (88) 100 04/03/20 05:21 100/79 04/03/20 05:15 89 14 100/79 (86) 100 04/03/20 05:00 101/73 04/03/20 05:00 92 14 101/73 (82) 04/03/20 04:45 103 14 126/86 (99) 100 04/03/20 04:45 126/86 04/03/20 04:30 96 14 144/102 (116) 100 04/03/20 04:30 144/102 04/03/20 04:15 97 14 121/90 (100) 100 04/03/20 04:15 121/90 04/03/20 04:14 100 103/41 04/03/20 04:00 88 04/03/20 04:00 Mechanical Ventilator 04/03/20 04:00 97.6 88 14 103/41 (61) 100 04/03/20 04:00 103/41 04/03/20 04:00 100 04/03/20 03:46 96 14 100 Mechanical Ventilator 100 96 14 100 04/03/20 03:30 95 14 121/81 (94) 100 04/03/20 03:00 137/97 04/03/20 03:00 96 14 137/97 (110) 100 04/03/20 02:30 96 14 132/93 (106) 100 04/03/20 02:00 97 14 137/93 (108) 100 04/03/20 02:00 137/93 04/03/20 01:30 98 14 128/98 (108) 100 04/03/20 01:00 105/83 04/03/20 01:00 99 14 105/83 (90) 100 04/03/20 00:57 117/86 04/03/20 00:30 101 14 112/84 (93) 100 04/03/20 00:00 98.2 102 14 115/86 (96) 100 04/03/20 00:00 Mechanical Ventilator 04/03/20 00:00 115/86 04/03/20 00:00 102 04/03/20 00:00 100 04/02/20 23:45 103 14 118/83 (95) 100 04/02/20 23:30 104 14 123/91 (102) 100 04/02/20 23:15 102 14 104/79 (87) 100 04/02/20 23:14 102 14 98/77 (84) 99 04/02/20 23:10 99 14 100 Mechanical Ventilator 100 104 14 100 04/02/20 23:00 69/57 04/02/20 23:00 103 14 69/57 (61) 97 04/02/20 22:45 107 107/81 04/02/20 22:30 110 22 107/81 (90) 04/02/20 22:00 110 18 104/79 (87) 100 04/02/20 22:00 104/79 04/02/20 21:30 112 19 103/74 (84) 100 04/02/20 21:15 113 19 98/73 (81) 100 04/02/20 21:00 107/78 04/02/20 21:00 112 15 107/78 (88) 100 04/02/20 20:45 86/70 04/02/20 20:45 112 14 101/69 (80) 98 04/02/20 20:35 112 14 86/70 (75) 98 04/02/20 20:30 112 14 79/56 (64) 98 04/02/20 20:16 116/85 6/29/20 20:15 103 14 112/83 (93) 98 04/02/20 20:00 98.1 104 14 116/85 (95) 97 04/02/20 20:00 Mechanical Ventilator 04/02/20 20:00 116/85 04/02/20 20:00 100 04/02/20 19:45 105 14 101/83 (89) 96 04/02/20 19:40 103 14 98 Mechanical Ventilator 100 103 14 100 04/02/20 19:30 106 14 108/74 (85) 95 04/02/20 19:30 106 04/02/20 19:00 104 14 117/78 (91) 97 04/02/20 18:30 106 14 115/83 (94) 97 04/02/20 18:24 106 112/80 04/02/20 18:15 107 14 112/80 (91) 98 04/02/20 18:00 109 14 110/83 (92) 96 04/02/20 17:30 115 14 129/92 (104) 98 04/02/20 17:22 108 14 150/97 (114) 94 04/02/20 17:19 99 14 74/54 (61) 90 04/02/20 17:15 102 14 39/26 (30) 85 04/02/20 17:00 39/26 04/02/20 17:00 110 14 117/88 (98) 92 04/02/20 16:00 Mechanical Ventilator 04/02/20 16:00 91 04/02/20 16:00 100 04/02/20 15:57 110 14 172/107 (128) 96 04/02/20 15:55 107 14 72/51 (58) 93 04/02/20 15:45 86 14 52/36 (41) 85 04/02/20 15:42 85/42 04/02/20 15:35 101 14 188/110 (136) 87 04/02/20 15:30 84 14 40/25 (30) 83 04/02/20 15:28 94 14 84 Mechanical Ventilator 100 95 14 100 04/02/20 15:15 92 14 58/35 (43) 95 04/02/20 15:00 93 14 102/71 (81) 95 04/02/20 15:00 102/75 04/02/20 14:15 94 15 91/63 (72) 97 04/02/20 14:00 111/73 04/02/20 14:00 91 14 111/73 (86) 96 04/02/20 13:45 92 14 113/81 (92) 98 04/02/20 13:30 87 14 86/57 (67) 95 04/02/20 13:15 91 14 98/66 (77) 94 04/02/20 13:00 108/68 04/02/20 13:00 99.9 92 14 108/68 (81) 96 04/02/20 12:00 95 14 97 04/02/20 12:00 Mechanical Ventilator 04/02/20 12:00 107/75 04/02/20 12:00 100 04/02/20 12:00 95 04/02/20 11:45 95 14 112/67 (82) 97 04/02/20 11:30 96 14 120/80 (93) 97 04/02/20 11:15 98 14 117/79 (92) 96 04/02/20 11:00 99 14 136/86 (103) 98 04/02/20 10:58 97 14 98 Mechanical Ventilator 100 98 14 100 04/02/20 10:54 67/49 04/02/20 10:51 92 14 125/88 (100) 96 04/02/20 10:49 81 14 67/49 (55) 94 04/02/20 10:47 80 14 42/24 (30) 93 04/02/20 10:30 88 14 94/70 (78) 96 04/02/20 10:15 88 14 98/67 (77) 96 04/02/20 10:00 88 14 102/69 (80) 95 04/02/20 09:45 89 14 106/73 (84) 96 04/02/20 09:30 89 14 98/75 (83) 95 Intake and Output 04/02/20 04/03/20 19:00 07:00 Intake Total 1833.00 ml 2544.81 ml Output Total 915 ml 1300 ml Balance 918.00 ml 1244.81 ml IV Total 1823.00 ml 2439.81 ml Tube Feeding 0 ml 45 ml Other 10 ml 60 ml Output Urine Total 915 ml 1300 ml Height (Feet): 5 Height (Inches): 5.00 Weight (Pounds): 117 Objective Thin WW NCAT (+) ETT supple coarse BS RR abd soft NT ND no edema Douglas Tucker MD Apr 03, 2020 09:27
--- NOTE | 2020-04-03 09:36 | NUR ---
RD ASSESSMENT & RECOMMENDATIONS SEE CARE ACTIVITY FOR COMPLETE ASSESSMENT DAILY ESTIMATED NEEDS: Needs based on Wound, Critical care / 56kg 25-30 kcals/kg 8541-9889 total kcals 1.25-2 g protein/kg 70-112 g total protein 25-30 mL/kg 4760-8427 total fluid mLs NUTRITION DIAGNOSIS: * Swallowing difficulty R/T dysphagia as evidendced by QUALITY ANALYST/TECHNICAL WRITER w/ rec for NPO, now on NGT feeds, s/p respiratory failure, orally intubated in ICU. * Increased kcal/prot/micronutrients needs R/T wound healing as evidenced by pt admitted w/ multiple wounds including full thickness wound @ sacrum, DTPI wound @ L Gluteal cheek, and non-Blanchable erythema @ BL heels. CURRENT TF:Jevity 1.2 @ 55ml/hr x22 hrs- NOW HELD ENTERAL NUTRITION RECOMMENDATIONS: VITAL 1.2 goal of 60ml/hr x22 hrs (HOLD 1 HR BEFORE AND AFTER SYNTHROID) to provide 1320ml, 1584 kcal, 99g pro, 1071ml free H2O - As able, rec trophic feeds of 5-10ml/hr to maintain gut integrity. - With improved stability, increase goal rate to 60ml/hr to better meet est needs - Hold 1 hr before and after Synthroid med - flush per MD, HOB over 30 degrees ADDITIONAL RECOMMENDATIONS: * Per SNF: HT=66" BK=760vdc (03/07/20) * Wound healing: continue MVI, Vit C, and ZnSO4 add TONI BID via NGT when stable to feed. * Monitor lytes, replete as needed * Monitor BG, need for NISS w/ TF's .
[2020-04-03] MEDS: Multivitamins W/Minerals 15 ML UDC NG SCH (09:59)
[2020-04-03] MEDS: Lactulose 20gm/30ml UDC NG SCH ×3 (09:59→17:15)
[2020-04-03] MEDS: Zinc Sulfate 220mg NG SCH (09:59)
[2020-04-03] MEDS: Ascorbic Acid 500mg tab NG SCH (09:59)
[2020-04-03] MEDS: Midodrine 10mg tab NG SCH ×3 (09:59→17:15)
[2020-04-03] MEDS: Pantoprazole Inj IVP SCH (09:59)
--- NOTE | 2020-04-03 10:20 | NUR ---
NURSE NOTES: MD. HUSSEIN HERE TO SEE PT. NO AM LABS. NO NEW ORDERS. CONTINUE TO MONITOR PT.
--- NOTE | 2020-04-03 10:58 | Infectious Diseases Prog Note ---
Assessment/Plan Assessment/Plan antibiotics : cefepime A 1. klebsiella pneumonia COVID 19 test negative x 2 2. respiratory failure 3. COPD 4. leucocytosis increased 5. hypothyroidism 6. schizophrenia 7. shock P 1. continue cefepime 2. start iv vancomycin 3. blood culture 4. UA and culture 5. sputum culture 6. will follow up cultures Subjective ROS Limited/Unobtainable: Yes Allergies: Coded Allergies: PENICILLINS (Verified Allergy, Unknown, 03/11/20) Objective Last 24 Hour Vital Signs Date Time Temp Pulse Resp B/P (MAP) Pulse Ox O2 Delivery O2 Flow Rate FiO2 04/03/20 10:54 83 14 100 Mechanical Ventilator 100 83 14 100 04/03/20 10:21 140/90 04/03/20 10:05 88 132/94 04/03/20 07:19 86 14 100 Mechanical Ventilator 100 86 14 100 04/03/20 07:00 86 14 125/90 (102) 100 04/03/20 07:00 125/90 04/03/20 06:30 86 14 107/79 (88) 100 04/03/20 06:00 110/86 04/03/20 06:00 87 14 110/86 (94) 100 04/03/20 05:45 87 14 105/77 (86) 100 04/03/20 05:30 88 14 101/82 (88) 100 04/03/20 05:21 100/79 04/03/20 05:15 89 14 100/79 (86) 100 04/03/20 05:00 101/73 04/03/20 05:00 92 14 101/73 (82) 04/03/20 04:45 103 14 126/86 (99) 100 04/03/20 04:45 126/86 04/03/20 04:30 96 14 144/102 (116) 100 04/03/20 04:30 144/102 04/03/20 04:15 97 14 121/90 (100) 100 04/03/20 04:15 121/90 04/03/20 04:14 100 103/41 04/03/20 04:00 88 04/03/20 04:00 Mechanical Ventilator 04/03/20 04:00 97.6 88 14 103/41 (61) 100 04/03/20 04:00 103/41 04/03/20 04:00 100 04/03/20 03:46 96 14 100 Mechanical Ventilator 100 96 14 100 04/03/20 03:30 95 14 121/81 (94) 100 04/03/20 03:00 137/97 04/03/20 03:00 96 14 137/97 (110) 100 04/03/20 02:30 96 14 132/93 (106) 100 04/03/20 02:00 97 14 137/93 (108) 100 04/03/20 02:00 137/93 04/03/20 01:30 98 14 128/98 (108) 100 04/03/20 01:00 105/83 04/03/20 01:00 99 14 105/83 (90) 100 04/03/20 00:57 117/86 04/03/20 00:30 101 14 112/84 (93) 100 04/03/20 00:00 98.2 102 14 115/86 (96) 100 04/03/20 00:00 Mechanical Ventilator 04/03/20 00:00 115/86 04/03/20 00:00 102 04/03/20 00:00 100 04/02/20 23:45 103 14 118/83 (95) 100 04/02/20 23:30 104 14 123/91 (102) 100 04/02/20 23:15 102 14 104/79 (87) 100 04/02/20 23:14 102 14 98/77 (84) 99 04/02/20 23:10 99 14 100 Mechanical Ventilator 100 104 14 100 04/02/20 23:00 69/57 04/02/20 23:00 103 14 69/57 (61) 97 04/02/20 22:45 107 107/81 04/02/20 22:30 110 22 107/81 (90) 04/02/20 22:00 110 18 104/79 (87) 100 04/02/20 22:00 104/79 04/02/20 21:30 112 19 103/74 (84) 100 04/02/20 21:15 113 19 98/73 (81) 100 04/02/20 21:00 107/78 04/02/20 21:00 112 15 107/78 (88) 100 04/02/20 20:45 86/70 04/02/20 20:45 112 14 101/69 (80) 98 04/02/20 20:35 112 14 86/70 (75) 98 04/02/20 20:30 112 14 79/56 (64) 98 04/02/20 20:16 116/85 04/02/20 20:15 103 14 112/83 (93) 98 04/02/20 20:00 98.1 104 14 116/85 (95) 97 04/02/20 20:00 Mechanical Ventilator 04/02/20 20:00 116/85 04/02/20 20:00 100 04/02/20 19:45 105 14 101/83 (89) 96 04/02/20 19:40 103 14 98 Mechanical Ventilator 100 103 14 100 04/02/20 19:30 106 14 108/74 (85) 95 04/02/20 19:30 106 04/02/20 19:00 104 14 117/78 (91) 97 04/02/20 18:30 106 14 115/83 (94) 97 04/02/20 18:24 106 112/80 04/02/20 18:15 107 14 112/80 (91) 98 04/02/20 18:00 109 14 110/83 (92) 96 04/02/20 17:30 115 14 129/92 (104) 98 04/02/20 17:22 108 14 150/97 (114) 94 04/02/20 17:19 99 14 74/54 (61) 90 04/02/20 17:15 102 14 39/26 (30) 85 04/02/20 17:00 39/26 04/02/20 17:00 110 14 117/88 (98) 92 04/02/20 16:00 Mechanical Ventilator 04/02/20 16:00 91 04/02/20 16:00 100 04/02/20 15:57 110 14 172/107 (128) 96 04/02/20 15:55 107 14 72/51 (58) 93 04/02/20 15:45 86 14 52/36 (41) 85 04/02/20 15:42 85/42 04/02/20 15:35 101 14 188/110 (136) 87 04/02/20 15:30 84 14 40/25 (30) 83 04/02/20 15:28 94 14 84 Mechanical Ventilator 100 95 14 100 04/02/20 15:15 92 14 58/35 (43) 95 6/29/20 15:00 93 14 102/71 (81) 95 04/02/20 15:00 102/75 04/02/20 14:15 94 15 91/63 (72) 97 04/02/20 14:00 111/73 04/02/20 14:00 91 14 111/73 (86) 96 04/02/20 13:45 92 14 113/81 (92) 98 04/02/20 13:30 87 14 86/57 (67) 95 04/02/20 13:15 91 14 98/66 (77) 94 04/02/20 13:00 108/68 04/02/20 13:00 99.9 92 14 108/68 (81) 96 04/02/20 12:00 95 14 97 04/02/20 12:00 Mechanical Ventilator 04/02/20 12:00 107/75 04/02/20 12:00 100 04/02/20 12:00 95 04/02/20 11:45 95 14 112/67 (82) 97 04/02/20 11:30 96 14 120/80 (93) 97 04/02/20 11:15 98 14 117/79 (92) 96 04/02/20 11:00 99 14 136/86 (103) 98 04/02/20 10:58 97 14 98 Mechanical Ventilator 100 98 14 100 Height (Feet): 5 Height (Inches): 5.00 Weight (Pounds): 117 HEENT: other - intubated Respiratory/Chest: lungs clear Cardiovascular: normal rate, regular rhythm, no gallop/murmur Abdomen: soft, non tender Extremities: no edema, other - left arm PICC Current Medications Medications (Trade) Dose Ordered Sig/Ranjeet Route PRN Reason Start Time Stop Time Status Last Admin Dose Admin Acetaminophen (Tylenol) 650 mg Q4H PRN NG Mild Pain (1-3)/Fever > 100.5 03/22/20 15:30 04/10/20 19:29 Albuterol Sulfate (Proventil MDI) 2 puff Q4HRT INH 03/18/20 15:00 06/13/20 02:59 04/03/20 10:54 Ascorbic Acid (Vitamin C) 500 mg DAILY NG 03/23/20 09:00 04/11/20 08:59 04/03/20 09:59 Atropine Sulfate (Atropine) 1 mg Q1H PRN IVP HR <40BPM 03/18/20 13:30 04/17/20 13:29 03/31/20 14:58 Cefepime HCl 2 gm/ Dextrose 55 ml @ 110 mls/hr Q12H IVPB 04/02/20 12:00 04/09/20 11:59 04/02/20 23:35 Chlorhexidine Gluconate (Mary-Hex 2%) 1 applic DAILY@2000 TOPIC 03/21/20 20:00 06/19/20 19:59 04/02/20 19:29 Clonidine HCl (Catapres Tab) 0.1 mg Q4H PRN NG For High Blood Pressure 03/31/20 16:45 06/29/20 16:44 03/31/20 16:45 Heparin Sodium (Porcine) (Heparin 5000 units/ml) 5,000 units EVERY 12 HOURS SUBQ 03/18/20 21:00 04/25/20 20:59 04/02/20 20:30 Lactulose (Cephulac) 30 gm THREE TIMES A DAY NG 03/22/20 18:00 04/18/20 09:14 04/03/20 09:59 Levothyroxine Sodium (Synthroid) 150 mcg DAILY@0630 ORAL 03/31/20 06:30 04/30/20 06:29 04/03/20 05:35 Loratadine (Claritin 10mg) 10 mg DAILY ORAL 03/23/20 09:00 04/11/20 08:59 04/03/20 09:59 Magnesium Hydroxide (Mom) 30 ml HSPRN PRN NG Constipation 03/22/20 15:30 04/17/20 13:59 Midodrine (Pro-Amatine) 10 mg THREE TIMES A DAY NG 03/24/20 13:00 06/21/20 08:59 04/03/20 09:59 Multivitamins (Multivitamins W/ Minerals 15ml Liquid) 15 ml DAILY NG 03/23/20 09:00 04/11/20 08:59 04/03/20 09:59 Norepinephrine Bitartrate 8 mg/ Dextrose 250 ml @ 0 mls/hr Q24H IV 04/01/20 13:30 05/01/20 13:29 04/03/20 10:21 Pantoprazole (Protonix) 40 mg DAILY IVP 03/23/20 09:00 04/22/20 08:59 04/03/20 09:59 Phenylephrine HCl 50 mg/Dextrose 250 ml @ 0 mls/hr Q24H IV 04/01/20 12:00 05/01/20 11:59 04/03/20 10:05 Sodium Chloride 1,000 ml @ 100 mls/hr Q10H IV 04/02/20 09:00 05/02/20 08:59 04/03/20 04:27 Zinc Sulfate (Zinc Sulfate) 220 mg DAILY NG 03/23/20 09:00 06/10/20 08:59 04/03/20 09:59 Eh Bailey MD Apr 03, 2020 10:58
--- NOTE | 2020-04-03 11:35 | NUR ---
NURSE NOTES: MD JIANG HERE TO SEE PT. WAS INFORMED NO GAG. AWAITING DR. ACOSTA TO PRONOUNCE FROM NEURO STANDPOINT. PT ON PEEP 10, FI02 100%. 2 PRESSORS RUNNING. NO NEW ORDERS.
--- NOTE | 2020-04-03 12:02 | Surgery Progress Note ---
Surgery Progress Note Subjective Additional Comments unresponsive increasing vent support no reflex ill appearing prognosis guarded Objective Last 24 Hour Vital Signs Date Time Temp Pulse Resp B/P (MAP) Pulse Ox O2 Delivery O2 Flow Rate FiO2 04/03/20 11:00 83 14 117/81 (93) 100 04/03/20 10:54 83 14 100 Mechanical Ventilator 100 83 14 100 04/03/20 10:45 83 14 100/75 (83) 100 04/03/20 10:30 85 14 109/75 (86) 100 04/03/20 10:21 140/90 04/03/20 10:15 88 14 155/95 (115) 100 04/03/20 10:05 88 132/94 04/03/20 10:00 87 14 132/94 (107) 100 04/03/20 09:45 87 14 127/91 (103) 100 04/03/20 09:30 87 14 124/88 (100) 100 04/03/20 09:15 87 14 130/93 (105) 100 04/03/20 09:00 87 14 123/90 (101) 100 04/03/20 08:45 87 14 127/89 (102) 100 04/03/20 08:30 87 14 123/90 (101) 100 04/03/20 08:15 87 14 135/91 (106) 100 04/03/20 08:00 87 14 118/89 (99) 100 04/03/20 08:00 Mechanical Ventilator 04/03/20 08:00 100 04/03/20 08:00 82 04/03/20 07:19 86 14 100 Mechanical Ventilator 100 86 14 100 04/03/20 07:00 86 14 125/90 (102) 100 04/03/20 07:00 125/90 04/03/20 06:30 86 14 107/79 (88) 100 04/03/20 06:00 110/86 04/03/20 06:00 87 14 110/86 (94) 100 04/03/20 05:45 87 14 105/77 (86) 100 04/03/20 05:30 88 14 101/82 (88) 100 04/03/20 05:21 100/79 04/03/20 05:15 89 14 100/79 (86) 100 04/03/20 05:00 101/73 04/03/20 05:00 92 14 101/73 (82) 04/03/20 04:45 103 14 126/86 (99) 100 04/03/20 04:45 126/86 04/03/20 04:30 96 14 144/102 (116) 100 04/03/20 04:30 144/102 04/03/20 04:15 97 14 121/90 (100) 100 04/03/20 04:15 121/90 04/03/20 04:14 100 103/41 04/03/20 04:00 88 04/03/20 04:00 Mechanical Ventilator 04/03/20 04:00 97.6 88 14 103/41 (61) 100 04/03/20 04:00 103/41 04/03/20 04:00 100 04/03/20 03:46 96 14 100 Mechanical Ventilator 100 96 14 100 04/03/20 03:30 95 14 121/81 (94) 100 04/03/20 03:00 137/97 04/03/20 03:00 96 14 137/97 (110) 100 04/03/20 02:30 96 14 132/93 (106) 100 04/03/20 02:00 97 14 137/93 (108) 100 04/03/20 02:00 137/93 04/03/20 01:30 98 14 128/98 (108) 100 04/03/20 01:00 105/83 04/03/20 01:00 99 14 105/83 (90) 100 04/03/20 00:57 117/86 04/03/20 00:30 101 14 112/84 (93) 100 04/03/20 00:00 98.2 102 14 115/86 (96) 100 04/03/20 00:00 Mechanical Ventilator 04/03/20 00:00 115/86 04/03/20 00:00 102 04/03/20 00:00 100 04/02/20 23:45 103 14 118/83 (95) 100 04/02/20 23:30 104 14 123/91 (102) 100 04/02/20 23:15 102 14 104/79 (87) 100 04/02/20 23:14 102 14 98/77 (84) 99 04/02/20 23:10 99 14 100 Mechanical Ventilator 100 104 14 100 04/02/20 23:00 69/57 04/02/20 23:00 103 14 69/57 (61) 97 04/02/20 22:45 107 107/81 04/02/20 22:30 110 22 107/81 (90) 04/02/20 22:00 110 18 104/79 (87) 100 04/02/20 22:00 104/79 04/02/20 21:30 112 19 103/74 (84) 100 04/02/20 21:15 113 19 98/73 (81) 100 04/02/20 21:00 107/78 04/02/20 21:00 112 15 107/78 (88) 100 04/02/20 20:45 86/70 04/02/20 20:45 112 14 101/69 (80) 98 04/02/20 20:35 112 14 86/70 (75) 98 04/02/20 20:30 112 14 79/56 (64) 98 04/02/20 20:16 116/85 04/02/20 20:15 103 14 112/83 (93) 98 04/02/20 20:00 98.1 104 14 116/85 (95) 97 04/02/20 20:00 Mechanical Ventilator 04/02/20 20:00 116/85 04/02/20 20:00 100 04/02/20 19:45 105 14 101/83 (89) 96 04/02/20 19:40 103 14 98 Mechanical Ventilator 100 103 14 100 04/02/20 19:30 106 14 108/74 (85) 95 04/02/20 19:30 106 04/02/20 19:00 104 14 117/78 (91) 97 04/02/20 18:30 106 14 115/83 (94) 97 04/02/20 18:24 106 112/80 04/02/20 18:15 107 14 112/80 (91) 98 04/02/20 18:00 109 14 110/83 (92) 96 04/02/20 17:30 115 14 129/92 (104) 98 04/02/20 17:22 108 14 150/97 (114) 94 04/02/20 17:19 99 14 74/54 (61) 90 04/02/20 17:15 102 14 39/26 (30) 85 04/02/20 17:00 39/26 04/02/20 17:00 110 14 117/88 (98) 92 04/02/20 16:00 Mechanical Ventilator 04/02/20 16:00 91 04/02/20 16:00 100 04/02/20 15:57 110 14 172/107 (128) 96 04/02/20 15:55 107 14 72/51 (58) 93 04/02/20 15:45 86 14 52/36 (41) 85 04/02/20 15:42 85/42 04/02/20 15:35 101 14 188/110 (136) 87 04/02/20 15:30 84 14 40/25 (30) 83 04/02/20 15:28 94 14 84 Mechanical Ventilator 100 95 14 100 04/02/20 15:15 92 14 58/35 (43) 95 04/02/20 15:00 93 14 102/71 (81) 95 04/02/20 15:00 102/75 04/02/20 14:15 94 15 91/63 (72) 97 04/02/20 14:00 111/73 04/02/20 14:00 91 14 111/73 (86) 96 04/02/20 13:45 92 14 113/81 (92) 98 04/02/20 13:30 87 14 86/57 (67) 95 04/02/20 13:15 91 14 98/66 (77) 94 04/02/20 13:00 108/68 04/02/20 13:00 99.9 92 14 108/68 (81) 96 04/02/20 12:00 95 14 97 04/02/20 12:00 Mechanical Ventilator 04/02/20 12:00 107/75 04/02/20 12:00 100 04/02/20 12:00 95 I&O Intake and Output 04/02/20 04/03/20 19:00 07:00 Intake Total 1833.00 ml 2544.81 ml Output Total 915 ml 1300 ml Balance 918.00 ml 1244.81 ml IV Total 1823.00 ml 2439.81 ml Tube Feeding 0 ml 45 ml Other 10 ml 60 ml Output Urine Total 915 ml 1300 ml Dressing: other Wound: other Drains: other Cardiovascular: RSR Respiratory: decreased breath sounds Abdomen: soft, non-tender, present bowel sounds Extremities: no cyanosis Plan Problems: (1) Malnutrition Assessment & Plan: not eating enough TF started adv as tolerated bowel regimen worsening prognosis guarded DDAILY ESTIMATED NEEDS: Needs based on Wound, pulmonary / 56kg 25-35 kcals/kg 5723-4543 total kcals 1.25-1.8 g protein/kg 70-100 g total protein 25-30 mL/kg 4287-9117 total fluid mLs NUTRITION DIAGNOSIS: * Swallowing difficulty R/T dysphagia as evidenced by [facility] [employer] [facility] w/ rec for NPO, now on NGT feeds. * Increased kcal/prot/micronutrients needs R/T wound healing as evidenced by pt admitted w/ multiple wounds including full thickness wound @ sacrum, TPI wound @ L Gluteal cheek, and non-Blanchable erythema @ BL heels. CURRENT TF:Jevity 1.2 @30ml/hr ENTERAL NUTRITION RECOMMENDATIONS: JEVITY 1.2 goal of 55ml/hr x24 hrs to provide 1320ml, 1584 kcal, 73g pro, 1065ml free H2O - rec to INCREASE current TF as tolerated to goal of 55ml/hr to better meet est needs. - flush per CHRISTINA JONES over 30 degrees ADDITIONAL RECOMMENDATIONS: * Per SNF: HT=66" UX=[id number] (03/07/20) * Wound healing: continue MVI, Vit C, and ZnSO4 * VIA NGT-> add TONI BID for wound care TF recs as above * Monitor lytes, replete as needed THIS 60 Y.O.M. WAS ADMITTED WITH ACUTE ISSUES - FEVER, HYPOXIC WITH LOW 02 SATS ON NON-REBREATHER, RESP RATE 18 BPM INITIALLY PER MEDICAL RECORD. PER RN, THE PATIENT HAD A RAPID RESPOSE THIS MORNING (DESAT TO 90S AND RAPID RESP RATE). H/O COPD, CARDIAC DZ, HYPOTHYROIDISM, HTN, ALLERGIC RHINITIS, SCHIZOPHRENIA (ON OLANZAPINE AT SNF), BASELINE NONVERBAL. PER POLST FULL TX BUT NO INFORMATION REGARDING TUBE FEEDING PREFERENCES. AT SNF ON A REGULAR DIET TEXTURE AND THIN LIQUIDS WITH PROSTAT SF DRINK WITH MEALS. NOW ON A REGULAR TEXTURE DIET AND THIN LIQUIDS BUT DID NOT TAKE ANY PO. PER LAURIE EARLY, THE PT UNABLE TO TAKE LARGE PILLS BUT APPEARED TO TOLERATE CRUSHED MEDS WITH APPLESAUCE W/O OVERT ASPIRATION. PATIENT SEEN WITH RTFUNMI. PER RT RESP RATE 22 BPM AND NOT ABLE TO ongoing unintelligible confabulations. Patient did request a sandwich, however, not appropriate for regular texture at this time. VITALS ON 2 L NASAL CANNULA: HR: 73; RR: 20; SP02: 95% Patient's oral hygiene is improving, ongoing poor speech intelligibility which appears to be more due to poor articulation precision/oral motor coordination versus 2/2 dry mouth. CXR on 03/14/20: Findings: Interim considerable improvement of previously demonstrated left lower lobe infiltrate. There is a residual disease in the retrocardiac region as well as generalized reticular interstitial opacities throughout the left mid and lower lung. There is questionably a 3 cm spiculated opacity projected over the apex. Minimal right mid and lower lung reticular opacities are also demonstrated. There is some right midlung atelectasis versus thickening of the minor fissure. The heart size is normal. The pleural spaces are clear Impression: Considerable improvement the persistence of previously demonstrated left mid and lower lung infiltrates, since prior study of 03/11/2020. 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 RN aware of recommendations, plan, and aspiration precautions sign posted above Patients HOB. RECOMMENDATIONS: 1. Continue Moist Puree with Humphreys Thick Liquids Diet via 1 to 1 careful handfeeding while implementing posted aspiration precautions - RD recommendations appreciated for diet texture/type 2. Patient requires oral hygiene BID + lip moisturizer. (2) Decubitus skin ulcer Assessment & Plan: Pt presented on admission with multiple pressure injuries. Full thickness Pressure injury Sacrococcygeal area. (L)4cm x (W)2.5cm. Base of wound is fatou with scattered slough ,which was easily removed with gentle friction. Wound is now fatou with 25% soft necrosis at distal base of wound. Small amt sanguineous exudate noted.No odor noted. Periwound erythematous and denuded. Two additional Pressure Injuries noted to R gluteal cheek.(Proximal) Base of wound is purple and indurated(L)3cm x (W)1.5cm. Surrounding erythematous and denuded skin (Distal) R gluteus(L)1.4cm x (W)0.6cm. Base of wound is purple, indurated with surrounding erythematous and denuded skin. DTPI L Gluteal cheek (L)1.5cm x (W)1.3cm. Base of wound is indurated, purple with surrounding non-blanching erythema. Additional scattered areas that are maroon in colour noted to L gluteal cheek. Lateral L Heel boggy with non-blanching erythema with delineated margins. (L) 4cm x (W)4.5cm. Lateral R Heel Boggy with non-Blanchable erythema with delineated margins(L) 2.5cm x (W)2.5cm. Tx.Plan: Cleanse Sacrococcygeal area with saline. Apply TheraHoney , Apply Moisture Barrier Paste to Sacrum, R and L Buttocks. Cover entire Area with Optifoam drsgs. Change every 3 days and prn. Apply Moisture Barrier Paste to R and L Buttocks . Cover with Optifoam drsgs. Changee very 3 days and prn. Apply Cavilon Skin Barrier to R and L Trochanteric areas. Cover with Optifoam drsg. Change every 7 days and prn. Apply Cavilon Skin Barrier to R and L Heels. Cover each heel with Optifoam drsg. Change every 7 days and prn. Reposition at least every 2hours or as tolerated. Off-load heels with Pillow. APM/ERIK Mattress. (3) Pneumonia Assessment & Plan: Lungs: There is mild left lower lobe infiltrate consistent with pneumonia. Pleural space: Unremarkable. No pneumothorax. Heart: The heart size is at the upper limits of normal. Mediastinum: Unremarkable. Bones/joints: Unremarkable. IMPRESSION: There is mild left lower lobe infiltrate consistent with pneumonia. worsening on bipap now will monitor closely intubated now 03/21 wean vent Continue weaning. Will hopefully be extubated potentially. Gases noted. (4) COPD (chronic obstructive pulmonary disease) Assessment & Plan: On vent support weaning Potential extubation soon not able to extubate as not safe with current status possible withdraw care as no function possible brain (5) Fever Eddie Perez Apr 03, 2020 12:02
--- NOTE | 2020-04-03 12:03 | NUR ---
CASE MANAGEMENT:REVIEW 04/03/20 SI: ACUTE RESPIRATORY FAILURE 03/31/20 FAILED EXTUBATION . S/P CODE BLUE 97.6 88 103/41 100% ON VENT SUPPORT W/100% FIO2 IS: IV NS @100ML/HR LEVAQUIN NG QD IV CEFEPIME BID MIDODRINE NG TID ZINC NG QD CLARITIN NG QD IV PROTONIX QD LACTULOSE NG TID HEPARIN SQ BID ALBUTEROL INH Q4HRS RTC : ICU STATUS DCP: PATIENT IS FROM [facility] PLAN: FAILED EXTUBATION EEG -LOW ACTIVITY
[2020-04-03] MEDS: Cefepime HCl 2 GM in D5W 55 ML IVPB SCH ×2 (12:55→23:51)
--- NOTE | 2020-04-03 13:31 | NUR ---
NURSE NOTES: PT HYGIENE COMPLETE. ORAL CARE AND SUCTION PROVIDED. ETT IN PLACE. VENT SETTINGS REMAIN UNCHANGED,. SECRETIONS PINK IN COLOR, THICK. NO GAG. ABDOMEN ROUND, HYPOACTIVE BOWEL SOUNDS. LACTULOSE ADMINISTERED, NO BM SINCE 03/30. MD AWARE. BP STABLE ON LEVOPHED AT 16MCG/HR, PHENYLEPHRINE AT 80MCG/HR. EXTREMITIES ELEVATED ON PILLOWS. PT ON P200 AIR MATTRESS. AZAR DRAINING YELLOW URINE. CHANGED TUBE FEEDING, RUNNING AT 20ML/HR. ON AT LESS THEN GOAL, PT'S RESIDUALS HIGH., CURRENTLY 50ML. CONTACT PRECAUTIONS IN PLACE. WILL CONTINUE TO MONITOR PT.
--- NOTE | 2020-04-03 13:49 | NUR ---
NURSE NOTES: SPOKE WITH MD. TERRAZAS, REGARDING CT OF HEAD. PROCEDURE NO LONGER NECESSARY, PLACE ORDER TO CANCEL. AWAITING CONFIRMATION BY NEUROLOGIST FOR EEG.
[2020-04-03] MEDS: Vancomycin 1 GM in NS 275 ML IVPB SCH (14:09)
--- NOTE | 2020-04-03 14:10 | NUR ---
*-* INSURANCE *-* UPDATED CLINICALS AND REVIEWS HAVE BEEN FAXED TO; [facility] F: [phone] REF #[id number]
[2020-04-03 15:37] LABS: APPEARANCE,URINE CLEAR; BILIRUBIN, URINE NEGATIVE (NEGATIVE); COLOR,URINE PALE YELLOW; GLUCOSE, URINE (UA) NEGATIVE (NEGATIVE); KETONES,URINE NEGATIVE (NEGATIVE); LEUKOCYTE ESTERASE ,URINE NEGATIVE (NEGATIVE); NITRITE,URINE NEGATIVE (NEGATIVE); PH,URINE 5 (4.5-8.0); PROTEIN,URINE NEGATIVE (NEGATIVE); UROBILINOGEN,URINE NORMAL MG/DL (0.0-1.0)
--- NOTE | 2020-04-03 15:50 | NUR ---
NURSE NOTES: COLLECTED URINE AND BLOOD CULTURES. R.T COLLECTED SPUTUM. SENT TO LAB.
--- NOTE | 2020-04-03 16:43 | NUR ---
NURSE NOTES: PT CLEAN, TURNED TO SIDE LYING POSITION. VSS. TRENDING DOWN ON PRESSORS. AZAR DRAINING PALE URINE RANGING 100ML-110ML. NO BM. WILL ADMINISTER MILK OF MAGNESIA. LAST BM 03/30/2020. AFEBRILE. WOUND CARE COMPLETE. WILL CONTINUE TO MONITOR PT.
[2020-04-03] MEDS ORDERED: Atropine Inj 1mg/10ml Syr ONE (18:03)
--- NOTE | 2020-04-03 19:16 | NUR ---
HAND-OFF: Report given to Marie. Cole Rosario pt in no acute distress
--- NOTE | 2020-04-03 19:20 | NUR ---
NURSE NOTES: Received report from SHARATH Lundberg. Pt is non-responsive ETT 7.5, 23 cm at Lip. VENT Setting: AC 14, VT 500, Fi02 90%, Peep 10. Secretion is thin and moderate NO BM per AM shift after Lacturose x 3 Lainez draining yellow urine. Skin: Sacrum stage 4 and wound consults on board. IV Access PICC YUMIKO. Dressing is CDI. Running LEVOPHED 12mcg/hr, PHENYLEPHRINE 60mcg/hr, and 0.45 NS 100mL/hr NGT left nares Feeding 30mL/hr Afebrile and VSS On P200 Air Matress CONTACT Precautions and safety measure observed. Will continue to monitor
[2020-04-03] MEDS: Dyna-Hex 2% Top Sol 2oz TOPIC SCH (20:13)
--- NOTE | 2020-04-03 21:00 | NUR ---
NURSE NOTES: PM meds given IV sites are CDI Repositioned Oral care provided No acute distress noted Afebrile and VSS
--- NOTE | 2020-04-03 23:00 | NUR ---
NURSE NOTES: Pt remains non-responsive IV sites are CDI Repositioned Oral care provided No acute distress noted Afebrile and VSS Will continue to monitor
[2020-04-04] VITALS (46 sets, daily range): BP systolic 53–164; BP diastolic 34–96
--- NOTE | 2020-04-04 01:30 | NUR ---
NURSE NOTES: BP elevated to 164/96. Phenylephrine to 40mcg. Asymptomatic Continue to monitor
[2020-04-04] MEDS: Vancomycin 1 GM in NS 275 ML IVPB SCH ×2 (02:06→14:12)
[2020-04-04] MEDS: Albuterol 90mcg Inhaler 8gm INH SCH ×6 (03:13→22:59)
--- NOTE | 2020-04-04 03:30 | NUR ---
NURSE NOTES: AM care provided Pt remains non-responsive Afebrile and VSS IV sites are CDI Repositioned Oral care provided No acute distress noted Will continue to monitor
--- NOTE | 2020-04-04 03:45 | NUR ---
NURSE NOTES: A bump on pt's left upper arm noted Will endorse to AMRN
--- NOTE | 2020-04-04 05:30 | NUR ---
NURSE NOTES: Feeding stopped for the Synthroid at 0630 Repositioned Oral care provided Afebrile and VSS No acute distress noted
--- NOTE | 2020-04-04 07:15 | NUR ---
HAND-OFF: Report given to SHARATH Tapia. Endorsed POC.
--- NOTE | 2020-04-04 07:20 | NUR ---
NURSE NOTES: Received report from SHARATH Choi. Patient is lethargic. ETT 7.5/23cm at lip line with vent setting AC 14, VT 500, Peep 10 and FiO2 70%. O2 Sat 100% on the monitor. Lainez intact and draining with yellow color urine. Left upper arm PICC intact, clean and running with Levophed 12mcg/min, Sly 40mcg/min and 1/2NS 100ml/hr. BP stable. Afebrile. Kept dry, clean, comfortable and HOB>30. Will continue plan of care.
--- NOTE | 2020-04-04 07:50 | NUR ---
NURSE NOTES: Titrated down FiO2 to 50% by RT. Will continue to monitor closely.
[2020-04-04] MEDS: Ascorbic Acid 500mg tab NG SCH (08:43)
[2020-04-04] MEDS: Pantoprazole Inj IVP SCH (08:43)
[2020-04-04] MEDS: Zinc Sulfate 220mg NG SCH (08:43)
[2020-04-04] MEDS: Lactulose 20gm/30ml UDC NG SCH ×3 (08:43→17:22)
[2020-04-04] MEDS: Multivitamins W/Minerals 15 ML UDC NG SCH (08:43)
[2020-04-04] MEDS: Midodrine 10mg tab NG SCH ×3 (08:43→17:22)
[2020-04-04] MEDS: Heparin 5000 units/ml inj SUBQ SCH ×2 (08:44→19:41)
--- NOTE | 2020-04-04 09:00 | NUR ---
NURSE NOTES: Tube feeding residual 180ml noted. Hold feeding now. Will follow up.
--- NOTE | 2020-04-04 09:22 | Critical Care Progress Note ---
Assessment/Plan Assessment/Plan IMPRESSION: 1. COPD 2. Hypercapnia and hypoxemia. 3. Pneumonia,intermediate 4. Hypothyroidism. 5. History of allergies. 6. Severe protein-calorie malnutrition. 7. Mild leukocytosis. 8. acute respiratory failure/ failed extubation 9. pulmonary congestion 10. hypernatremia 11. ?brain care noted neuro still needed to confirm brain detah respiratory care as is on pressors reviewed changes; monitor secretions- discussed care Ventilatory support as is; recommend trach monitor for CO2 retention and congestion maintain meds DVT prophylaxis; supportive care as is off load aspiration precautions position change and off load oxygen therapy as is prognosis poor possible removal of life support if brain confirmed by neuro EEG with inactivity medications/laboratory data/nursing notes/ICU care reviewed in detail note reviewed and edited care discussed with RN and RT ICU time spent >40 minutes Critical Care - Subjective ROS Limited/Unobtainable: Yes Condition: critical EKG Rhythm: Sinus Rhythm I&O: Intake and Output 04/03/20 04/04/20 19:00 07:00 Intake Total 2589.906 ml 1804.2 ml Output Total 1445 ml 2375 ml Balance 1144.906 ml -570.8 ml Free Water 10 ml IV Total 2289.906 ml 1434.2 ml Tube Feeding 255 ml 360 ml Other 45 ml Output Urine Total 1445 ml 2375 ml # Bowel Movements 1 Critical Care - Objective ET-Tube: 7.5 ET Position: 23 Last 24 Hour Vital Signs Date Time Temp Pulse Resp B/P (MAP) Pulse Ox O2 Delivery O2 Flow Rate FiO2 04/04/20 07:50 50 04/04/20 07:46 76 14 100 Mechanical Ventilator 50 76 14 100 04/04/20 07:00 70 04/04/20 06:00 97.0 77 14 98/71 (80) 100 04/04/20 06:00 98/71 04/04/20 05:30 78 14 105/70 (82) 100 04/04/20 05:05 101/69 04/04/20 05:00 79 14 101/69 (80) 100 04/04/20 04:30 76 18 101/71 (81) 100 04/04/20 04:00 90 04/04/20 04:00 71 04/04/20 04:00 Mechanical Ventilator 04/04/20 04:00 121/80 04/04/20 04:00 71 14 121/80 (94) 100 04/04/20 03:30 71 14 122/85 (97) 100 04/04/20 03:14 77 14 100 Mechanical Ventilator 70 79 14 100 04/04/20 03:00 72 14 130/78 (95) 100 04/04/20 03:00 130/78 04/04/20 02:30 74 14 99/71 (80) 100 04/04/20 02:00 104/69 04/04/20 02:00 78 14 104/69 (81) 100 04/04/20 01:30 89 14 164/96 (118) 100 04/04/20 01:00 87 14 120/89 (99) 100 04/04/20 01:00 120/89 04/04/20 00:30 77 14 141/90 (107) 100 04/04/20 00:00 Mechanical Ventilator 04/04/20 00:00 77 14 131/84 (100) 100 04/04/20 00:00 131/84 04/04/20 00:00 77 04/04/20 00:00 90 04/03/20 23:36 78 130/81 04/03/20 23:00 130/81 04/03/20 23:00 78 14 130/81 (97) 100 04/03/20 22:30 79 14 130/86 (101) 100 04/03/20 22:04 79 15 100 Mechanical Ventilator 80 78 14 100 04/03/20 22:00 105/79 04/03/20 22:00 78 14 105/79 (88) 100 04/03/20 21:30 79 14 114/83 (93) 100 04/03/20 21:00 80 14 114/75 (88) 100 04/03/20 21:00 114/75 04/03/20 20:00 98.1 83 14 128/78 (95) 100 04/03/20 20:00 83 04/03/20 20:00 128/78 04/03/20 20:00 Mechanical Ventilator 04/03/20 20:00 90 04/03/20 19:27 81 17 100 Mechanical Ventilator 90 84 16 100 04/03/20 19:00 81 14 109/73 (85) 100 04/03/20 18:24 105/75 04/03/20 18:00 82 14 110/81 (91) 100 04/03/20 17:00 83 14 103/71 (82) 100 04/03/20 16:30 83 14 96/72 (80) 100 04/03/20 16:00 85 04/03/20 16:00 90 04/03/20 16:00 Mechanical Ventilator 04/03/20 16:00 97.8 85 14 124/82 (96) 100 04/03/20 15:02 87 14 100 Mechanical Ventilator 90 86 14 100 04/03/20 15:00 86 14 123/87 (99) 100 04/03/20 15:00 123/87 04/03/20 14:30 88 14 72/52 (59) 100 04/03/20 14:09 128/85 04/03/20 14:00 82 14 128/88 (101) 100 04/03/20 13:30 82 14 118/86 (97) 100 04/03/20 13:00 116/82 04/03/20 13:00 82 14 125/85 (98) 100 04/03/20 12:30 82 14 106/80 (89) 100 04/03/20 12:00 Mechanical Ventilator 04/03/20 12:00 125/85 04/03/20 12:00 100 04/03/20 12:00 98.7 82 14 123/82 (96) 100 04/03/20 12:00 81 04/03/20 11:00 83 14 117/81 (93) 100 04/03/20 11:00 113/82 04/03/20 10:54 83 14 100 Mechanical Ventilator 100 83 14 100 04/03/20 10:45 83 14 100/75 (83) 100 04/03/20 10:30 85 14 109/75 (86) 100 04/03/20 10:21 140/90 04/03/20 10:15 88 14 155/95 (115) 100 04/03/20 10:05 88 132/94 04/03/20 10:00 155/95 04/03/20 10:00 87 14 132/94 (107) 100 04/03/20 09:45 87 14 127/91 (103) 100 04/03/20 09:30 87 14 124/88 (100) 100 Labs: Laboratory Tests Test 04/03/20 13:00 Urine Color Pale yellow Urine Appearance Clear Urine pH 5 (4.5-8.0) Urine Specific [place] 1.005 (1.005-1.035) Urine Protein Negative (NEGATIVE) Urine Glucose (UA) Negative (NEGATIVE) Urine Ketones Negative (NEGATIVE) Urine Blood 1+ (NEGATIVE) H Urine Nitrite Negative (NEGATIVE) Urine Bilirubin Negative (NEGATIVE) Urine Urobilinogen Normal MG/DL (0.0-1.0) Urine Leukocyte Esterase Negative (NEGATIVE) Urine RBC 0-2 /HPF (0 - 2) Urine WBC 0-2 /HPF (0 - 2) Urine Squamous Epithelial Cells None /LPF (NONE/OCC) Urine Bacteria Occasional /HPF (NONE) Urine Yeast Many /HPF (NONE) H Objective: GENERAL: An ill-appearing female. NAD on Vent NECK: Supple. No adenopathy. LUNGS: Coarse breath sounds. Moderate air entry. ETT in place; no rhonchi or wheeze CARDIAC: S1, S2. Regular rate and rhythm without murmur. ABDOMEN: Soft, nontender, nondistended. feeding tube EXTREMITIES: No cyanosis, clubbing, or edema. obtunded on the vent reviewed and edited Micro: Microbiology Date/Time Source Procedure Growth Status 04/03/20 15:00 Sputum Gram Stain - Final Resulted 04/03/20 15:00 Sputum Sputum Culture Pending Resulted 04/03/20 13:00 Urine,Clean Catch Urine Culture - Preliminary NO GROWTH Resulted Javier Blake MD Apr 04, 2020 09:22
--- NOTE | 2020-04-04 09:35 | NUR ---
NURSE NOTES: Seen by Dr. Blake and assessed patient. Ordered CBC, CMP.
[2020-04-04 10:00] LABS: HEMATOCRIT 33.2 % (37.0-47.0); HEMOGLOBIN 10.2 G/DL (12.0-16.0); MEAN CORPUSCULAR VOLUME 101 FL (80-99); PLATELET COUNT 311 K/UL (150-450); RED CELL DISTRIBUTION WIDTH 15.3 % (11.6-14.8)
--- NOTE | 2020-04-04 10:00 | NUR ---
NURSE NOTES: Collected blood for CBC, CMP and sent to LAB.
[2020-04-04 10:21] LABS: ALANINE AMINOTRANSFERASE 55 U/L (12-78); ALBUMIN 1.3 G/DL (3.4-5.0); ALBUMIN/GLOBULIN RATIO 0.3 (1.0-2.7); ALKALINE PHOSPHATASE 141 U/L (46-116); ANION GAP 7 mmol/L (5-15); ASPARTATE AMINO TRANSFERASE 47 U/L (15-37); BILIRUBIN,TOTAL 0.3 MG/DL (0.2-1.0); BLOOD UREA NITROGEN 23 mg/dL (7-18); CALCIUM 9.2 MG/DL (8.5-10.1); CARBON DIOXIDE 32 MMOL/L (21-32); CHLORIDE 128 MMOL/L (98-107)
[2020-04-04 10:22] LABS: SODIUM 167 MMOL/L (136-145)
--- NOTE | 2020-04-04 10:46 | NUR ---
NURSE NOTES: Seen by Dr. Tucker and assessed patient. Changed IVF to D5W 125ml/hr.
--- NOTE | 2020-04-04 10:50 | NUR ---
NURSE NOTES: Dr. Tucker ordered KCL 40 meq IV.
--- NOTE | 2020-04-04 10:59 | NUR ---
*-* INSURANCE *-* UPDATED CLINICALS HAVE BEEN FAXED TO; [facility] F: [phone] REF #[id number]
--- NOTE | 2020-04-04 11:01 | Infectious Diseases Prog Note ---
Assessment/Plan Assessment/Plan antibiotics : vancomycin iv, cefepime A 1. klebsiella pneumonia COVID 19 test negative x 2 2. respiratory failure 3. COPD 4. leucocytosis improved 5. hypothyroidism 6. schizophrenia 7. shock P 1. continue iv vancomycin, cefepime 2. will follow up cultures Subjective ROS Limited/Unobtainable: Yes Allergies: Coded Allergies: PENICILLINS (Verified Allergy, Unknown, 03/11/20) Objective Last 24 Hour Vital Signs Date Time Temp Pulse Resp B/P (MAP) Pulse Ox O2 Delivery O2 Flow Rate FiO2 04/04/20 10:30 77 14 105/76 (86) 100 04/04/20 10:00 78 14 112/79 (90) 100 04/04/20 09:54 40 04/04/20 09:30 76 14 108/69 (82) 100 04/04/20 09:00 75 14 88/63 (71) 100 04/04/20 08:30 76 14 97/71 (80) 100 04/04/20 08:00 97.1 77 14 102/69 (80) 100 04/04/20 08:00 76 04/04/20 07:50 50 04/04/20 07:46 76 14 100 Mechanical Ventilator 50 76 14 100 04/04/20 07:30 75 14 99/71 (80) 100 04/04/20 07:00 70 04/04/20 07:00 76 14 108/70 (83) 100 04/04/20 06:00 97.0 77 14 98/71 (80) 100 04/04/20 06:00 98/71 04/04/20 05:30 78 14 105/70 (82) 100 04/04/20 05:05 101/69 04/04/20 05:00 79 14 101/69 (80) 100 04/04/20 04:30 76 18 101/71 (81) 100 04/04/20 04:00 90 04/04/20 04:00 71 04/04/20 04:00 Mechanical Ventilator 04/04/20 04:00 121/80 04/04/20 04:00 71 14 121/80 (94) 100 04/04/20 03:30 71 14 122/85 (97) 100 04/04/20 03:14 77 14 100 Mechanical Ventilator 70 79 14 100 04/04/20 03:00 72 14 130/78 (95) 100 04/04/20 03:00 130/78 04/04/20 02:30 74 14 99/71 (80) 100 04/04/20 02:00 104/69 04/04/20 02:00 78 14 104/69 (81) 100 04/04/20 01:30 89 14 164/96 (118) 100 04/04/20 01:00 87 14 120/89 (99) 100 04/04/20 01:00 120/89 04/04/20 00:30 77 14 141/90 (107) 100 04/04/20 00:00 Mechanical Ventilator 04/04/20 00:00 77 14 131/84 (100) 100 04/04/20 00:00 131/84 04/04/20 00:00 77 04/04/20 00:00 90 04/03/20 23:36 78 130/81 04/03/20 23:00 130/81 04/03/20 23:00 78 14 130/81 (97) 100 04/03/20 22:30 79 14 130/86 (101) 100 04/03/20 22:04 79 15 100 Mechanical Ventilator 80 78 14 100 04/03/20 22:00 105/79 04/03/20 22:00 78 14 105/79 (88) 100 04/03/20 21:30 79 14 114/83 (93) 100 04/03/20 21:00 80 14 114/75 (88) 100 04/03/20 21:00 114/75 04/03/20 20:00 98.1 83 14 128/78 (95) 100 04/03/20 20:00 83 04/03/20 20:00 128/78 04/03/20 20:00 Mechanical Ventilator 04/03/20 20:00 90 04/03/20 19:27 81 17 100 Mechanical Ventilator 90 84 16 100 04/03/20 19:00 81 14 109/73 (85) 100 04/03/20 18:24 105/75 04/03/20 18:00 82 14 110/81 (91) 100 04/03/20 17:00 83 14 103/71 (82) 100 04/03/20 16:30 83 14 96/72 (80) 100 04/03/20 16:00 85 04/03/20 16:00 90 04/03/20 16:00 Mechanical Ventilator 04/03/20 16:00 97.8 85 14 124/82 (96) 100 04/03/20 15:02 87 14 100 Mechanical Ventilator 90 86 14 100 04/03/20 15:00 86 14 123/87 (99) 100 04/03/20 15:00 123/87 04/03/20 14:30 88 14 72/52 (59) 100 04/03/20 14:09 128/85 04/03/20 14:00 82 14 128/88 (101) 100 04/03/20 13:30 82 14 118/86 (97) 100 04/03/20 13:00 116/82 04/03/20 13:00 82 14 125/85 (98) 100 04/03/20 12:30 82 14 106/80 (89) 100 04/03/20 12:00 Mechanical Ventilator 04/03/20 12:00 125/85 04/03/20 12:00 100 04/03/20 12:00 98.7 82 14 123/82 (96) 100 04/03/20 12:00 81 Height (Feet): 5 Height (Inches): 5.00 Weight (Pounds): 130 HEENT: other - intubated Respiratory/Chest: lungs clear Cardiovascular: normal rate, regular rhythm, no gallop/murmur Abdomen: soft, non tender Extremities: no edema, other - left arm PICC Microbiology Date/Time Source Procedure Growth Status 04/03/20 15:00 Sputum Gram Stain - Final Resulted 04/03/20 15:00 Sputum Sputum Culture Pending Resulted 04/03/20 13:00 Urine,Clean Catch Urine Culture - Preliminary NO GROWTH Resulted Laboratory Tests Test 04/03/20 13:00 04/04/20 09:47 Urine Color Pale yellow Urine Appearance Clear Urine pH 5 (4.5-8.0) Urine Specific [place] 1.005 (1.005-1.035) Urine Protein Negative (NEGATIVE) Urine Glucose (UA) Negative (NEGATIVE) Urine Ketones Negative (NEGATIVE) Urine Blood 1+ (NEGATIVE) H Urine Nitrite Negative (NEGATIVE) Urine Bilirubin Negative (NEGATIVE) Urine Urobilinogen Normal MG/DL (0.0-1.0) Urine Leukocyte Esterase Negative (NEGATIVE) Urine RBC 0-2 /HPF (0 - 2) Urine WBC 0-2 /HPF (0 - 2) Urine Squamous Epithelial Cells None /LPF (NONE/OCC) Urine Bacteria Occasional /HPF (NONE) Urine Yeast Many /HPF (NONE) H White Blood Count 18.0 K/UL (4.8-10.8) H Red Blood Count 3.30 M/UL (4.20-5.40) L Hemoglobin 10.2 G/DL (12.0-16.0) L Hematocrit 33.2 % (37.0-47.0) L Mean Corpuscular Volume 101 FL (80-99) H Mean Corpuscular Hemoglobin 30.9 PG (27.0-31.0) Mean Corpuscular Hemoglobin Concent 30.8 G/DL (32.0-36.0) L Red Cell Distribution Width 15.3 % (11.6-14.8) H Platelet Count 311 K/UL (150-450) Mean Platelet Volume 7.6 FL (6.5-10.1) Neutrophils (%) (Auto) % (45.0-75.0) Lymphocytes (%) (Auto) % (20.0-45.0) Monocytes (%) (Auto) % (1.0-10.0) Eosinophils (%) (Auto) % (0.0-3.0) Basophils (%) (Auto) % (0.0-2.0) Differential Total Cells Counted 100 Neutrophils % (Manual) 82 % (45-75) H Lymphocytes % (Manual) 13 % (20-45) L Monocytes % (Manual) 4 % (1-10) Eosinophils % (Manual) 1 % (0-3) Basophils % (Manual) 0 % (0-2) Band Neutrophils 0 % (0-8) Platelet Estimate Adequate Platelet Morphology Normal Hypochromasia 1+ Anisocytosis 1+ Macrocytosis 1+ Sodium Level 167 MMOL/L (136-145) *H Potassium Level 3.0 MMOL/L (3.5-5.1) L Chloride Level 128 MMOL/L (98-107) H Carbon Dioxide Level 32 MMOL/L (21-32) Anion Gap 7 mmol/L (5-15) Blood Urea Nitrogen 23 mg/dL (7-18) H Creatinine 1.0 MG/DL (0.55-1.30) Estimat Glomerular Filtration Rate 56.4 mL/min (>60) Glucose Level 138 MG/DL (74-106) H Calcium Level 9.2 MG/DL (8.5-10.1) Total Bilirubin 0.3 MG/DL (0.2-1.0) Aspartate Amino Transf (AST/SGOT) 47 U/L (15-37) H Alanine Aminotransferase (ALT/SGPT) 55 U/L (12-78) Alkaline Phosphatase 141 U/L (46-116) H Total Protein 6.3 G/DL (6.4-8.2) L Albumin 1.3 G/DL (3.4-5.0) L Globulin 5.0 g/dL Albumin/Globulin Ratio 0.3 (1.0-2.7) L Current Medications Medications (Trade) Dose Ordered Sig/Ranjeet Route PRN Reason Start Time Stop Time Status Last Admin Dose Admin Acetaminophen (Tylenol) 650 mg Q4H PRN NG Mild Pain (1-3)/Fever > 100.5 03/22/20 15:30 04/10/20 19:29 Albuterol Sulfate (Proventil MDI) 2 puff Q4HRT INH 03/18/20 15:00 06/13/20 02:59 04/04/20 07:46 Ascorbic Acid (Vitamin C) 500 mg DAILY NG 03/23/20 09:00 04/11/20 08:59 04/04/20 08:43 Atropine Sulfate (Atropine) 1 mg Q1H PRN IVP HR <40BPM 03/18/20 13:30 04/17/20 13:29 03/31/20 14:58 Cefepime HCl 2 gm/ Dextrose 55 ml @ 110 mls/hr Q12H IVPB 04/02/20 12:00 04/09/20 11:59 04/03/20 23:51 Chlorhexidine Gluconate (Mary-Hex 2%) 1 applic DAILY@2000 TOPIC 03/21/20 20:00 06/19/20 19:59 04/03/20 20:13 Clonidine HCl (Catapres Tab) 0.1 mg Q4H PRN NG For High Blood Pressure 03/31/20 16:45 06/29/20 16:44 03/31/20 16:45 Dextrose 1,000 ml @ 125 mls/hr Q8H IV 04/04/20 11:30 05/04/20 11:29 Heparin Sodium (Porcine) (Heparin 5000 units/ml) 5,000 units EVERY 12 HOURS SUBQ 03/18/20 21:00 04/25/20 20:59 04/04/20 08:44 Lactulose (Cephulac) 30 gm THREE TIMES A DAY NG 03/22/20 18:00 04/18/20 09:14 04/04/20 08:43 Levothyroxine Sodium (Synthroid) 150 mcg DAILY@0630 ORAL 03/31/20 06:30 04/30/20 06:29 04/04/20 06:23 Loratadine (Claritin 10mg) 10 mg DAILY ORAL 03/23/20 09:00 04/11/20 08:59 04/04/20 08:43 Magnesium Hydroxide (Mom) 30 ml HSPRN PRN NG Constipation 03/22/20 15:30 04/17/20 13:59 04/03/20 17:15 Midodrine (Pro-Amatine) 10 mg THREE TIMES A DAY NG 03/24/20 13:00 06/21/20 08:59 04/04/20 08:43 Multivitamins (Multivitamins W/ Minerals 15ml Liquid) 15 ml DAILY NG 03/23/20 09:00 04/11/20 08:59 04/04/20 08:43 Norepinephrine Bitartrate 8 mg/ Dextrose 250 ml @ 0 mls/hr Q24H IV 04/01/20 13:30 05/01/20 13:29 04/04/20 05:05 Pantoprazole (Protonix) 40 mg DAILY IVP 03/23/20 09:00 04/22/20 08:59 04/04/20 08:43 Phenylephrine HCl 50 mg/Dextrose 250 ml @ 0 mls/hr Q24H IV 04/01/20 12:00 05/01/20 11:59 04/03/20 23:36 Potassium Chloride 100 ml @ 50 mls/hr ONCE ONCE IVPB 04/04/20 11:00 04/04/20 12:59 UNV Potassium Chloride 100 ml @ 50 mls/hr ONCE ONCE IVPB 04/04/20 13:00 04/04/20 14:59 UNV Vancomycin HCl (Vanco pharmacy to dose) 1 ea DAILY PRN MISC Per rx protocol 04/03/20 11:00 05/03/20 10:59 Vancomycin HCl 1 gm/Sodium Chloride 275 ml @ 183.708 mls/hr Q12H IVPB 04/03/20 14:00 04/08/20 13:59 04/04/20 02:06 Zinc Sulfate (Zinc Sulfate) 220 mg DAILY NG 03/23/20 09:00 06/10/20 08:59 04/04/20 08:43 Eh Bailey MD Apr 04, 2020 11:01
--- NOTE | 2020-04-04 12:02 | NUR ---
NURSE NOTES: No change in condition. Repositioned patient. ETT and oral suction given.
[2020-04-04] MEDS: Cefepime HCl 2 GM in D5W 55 ML IVPB SCH ×2 (12:07→23:21)
--- NOTE | 2020-04-04 12:29 | NUR ---
CASE MANAGEMENT:REVIEW 04/04/20 SI: ACUTE RESPIRATORY FAILURE 03/31/20 FAILED EXTUBATION . S/P CODE BLUE 97.1 77 14 102/69 100% ON MECHANICAL VENT FIO2 100 WBC 18.0 NA+ 167 K+3.0 CL-128 BUN 23 BG 138 ALKP 141 ALB 1.3 IS: IV KCL TID X1 IV NS @100ML/HR IV D5 @125ML/HR IV VANCOMYCIN BID IV CEFEPIME BID LEVOPHED Q24HR PROTOCOL PHENYLEPHRINE Q24HR PROTOCOL : ICU STATUS DCP: PATIENT IS FROM PLAN: WBC TRENDING DOWN CONSULT NEURO BRAIN ACTIVELY TO BE DETERMINE BY CONSULT PLAN OF CARE TO FOLLOW PENDING
--- NOTE | 2020-04-04 13:00 | NUR ---
NURSE NOTES: Still noted with tube feeding residual 300ml. Kept holding tube feeding. Will continue plan of care.
[2020-04-04] MEDS ORDERED: NS 275ml ONE (15:50)
[2020-04-04] MEDS ORDERED: 1/2 NS 1000ml IV ONE (15:50)
--- NOTE | 2020-04-04 16:00 | NUR ---
NURSE NOTES: BP 142/87, Titrated down Sly from 50mcg/min to 30mcg/min. Will continue to monitor closely.
--- NOTE | 2020-04-04 16:30 | NUR ---
NURSE NOTES: Titrate levophed up to 14mcg/min d/t low bp.
--- NOTE | 2020-04-04 16:45 | NUR ---
NURSE NOTES: Increased levophed to 16mcg/min. BP 78/58. Will continue to monitor closely.
--- NOTE | 2020-04-04 16:58 | Surgery Progress Note ---
Surgery Progress Note Subjective Additional Comments ill appearing prognosis guarded non responsive Objective Last 24 Hour Vital Signs Date Time Temp Pulse Resp B/P (MAP) Pulse Ox O2 Delivery O2 Flow Rate FiO2 04/04/20 16:09 132/94 04/04/20 16:00 97.0 73 14 132/94 (107) 100 04/04/20 16:00 40 04/04/20 16:00 72 04/04/20 16:00 Mechanical Ventilator 04/04/20 15:30 70 14 112/77 (89) 100 04/04/20 15:10 71 14 100 Mechanical Ventilator 40 70 14 100 04/04/20 15:00 70 14 113/78 (90) 100 04/04/20 14:30 70 14 118/84 (95) 100 04/04/20 14:00 71 14 123/85 (98) 100 04/04/20 13:30 72 14 112/76 (88) 100 04/04/20 13:00 72 14 119/78 (92) 98 04/04/20 13:00 119/78 04/04/20 12:30 72 14 107/78 (88) 100 04/04/20 12:00 Mechanical Ventilator 04/04/20 12:00 74 04/04/20 12:00 125/83 04/04/20 12:00 40 04/04/20 12:00 97.0 74 14 111/77 (88) 100 04/04/20 11:53 74 14 100 Mechanical Ventilator 40 74 14 100 04/04/20 11:30 74 14 112/79 (90) 100 04/04/20 11:00 76 14 110/74 (86) 100 04/04/20 11:00 106/80 04/04/20 10:30 77 14 105/76 (86) 100 04/04/20 10:00 78 14 112/79 (90) 100 04/04/20 10:00 118/80 04/04/20 09:54 40 04/04/20 09:45 112/79 04/04/20 09:30 76 14 108/69 (82) 100 04/04/20 09:30 108/69 04/04/20 09:15 88/63 04/04/20 09:00 40 04/04/20 09:00 81/56 04/04/20 09:00 75 14 88/63 (71) 100 04/04/20 08:30 76 14 97/71 (80) 100 04/04/20 08:00 102/69 04/04/20 08:00 97.1 77 14 102/69 (80) 100 04/04/20 08:00 76 04/04/20 08:00 Mechanical Ventilator 04/04/20 07:50 50 04/04/20 07:46 76 14 100 Mechanical Ventilator 50 76 14 100 04/04/20 07:30 75 14 99/71 (80) 100 04/04/20 07:00 70 04/04/20 07:00 76 14 108/70 (83) 100 04/04/20 07:00 108/70 04/04/20 06:00 97.0 77 14 98/71 (80) 100 04/04/20 06:00 98/71 04/04/20 05:30 78 14 105/70 (82) 100 04/04/20 05:05 101/69 04/04/20 05:00 79 14 101/69 (80) 100 04/04/20 04:30 76 18 101/71 (81) 100 04/04/20 04:00 90 04/04/20 04:00 71 04/04/20 04:00 Mechanical Ventilator 04/04/20 04:00 121/80 04/04/20 04:00 71 14 121/80 (94) 100 04/04/20 03:30 71 14 122/85 (97) 100 04/04/20 03:14 77 14 100 Mechanical Ventilator 70 79 14 100 04/04/20 03:00 72 14 130/78 (95) 100 04/04/20 03:00 130/78 04/04/20 02:30 74 14 99/71 (80) 100 04/04/20 02:00 104/69 04/04/20 02:00 78 14 104/69 (81) 100 04/04/20 01:30 89 14 164/96 (118) 100 04/04/20 01:00 87 14 120/89 (99) 100 04/04/20 01:00 120/89 04/04/20 00:30 77 14 141/90 (107) 100 04/04/20 00:00 Mechanical Ventilator 04/04/20 00:00 77 14 131/84 (100) 100 04/04/20 00:00 131/84 04/04/20 00:00 77 04/04/20 00:00 90 04/03/20 23:36 78 130/81 04/03/20 23:00 130/81 04/03/20 23:00 78 14 130/81 (97) 100 04/03/20 22:30 79 14 130/86 (101) 100 04/03/20 22:04 79 15 100 Mechanical Ventilator 80 78 14 100 04/03/20 22:00 105/79 04/03/20 22:00 78 14 105/79 (88) 100 04/03/20 21:30 79 14 114/83 (93) 100 04/03/20 21:00 80 14 114/75 (88) 100 04/03/20 21:00 114/75 04/03/20 20:00 98.1 83 14 128/78 (95) 100 04/03/20 20:00 83 04/03/20 20:00 128/78 04/03/20 20:00 Mechanical Ventilator 04/03/20 20:00 90 04/03/20 19:27 81 17 100 Mechanical Ventilator 90 84 16 100 04/03/20 19:00 81 14 109/73 (85) 100 04/03/20 18:24 105/75 04/03/20 18:00 82 14 110/81 (91) 100 04/03/20 17:00 83 14 103/71 (82) 100 I&O Intake and Output 04/03/20 04/04/20 19:00 07:00 Intake Total 2589.906 ml 1938.7 ml Output Total 1445 ml 2375 ml Balance 1144.906 ml -436.3 ml Free Water 10 ml IV Total 2289.906 ml 1568.7 ml Tube Feeding 255 ml 360 ml Other 45 ml Output Urine Total 1445 ml 2375 ml # Bowel Movements 1 Dressing: other Wound: other Drains: other Cardiovascular: RSR Respiratory: decreased breath sounds Abdomen: soft, present bowel sounds, non-distended Extremities: no tenderness, no cyanosis Laboratory Tests Test 04/04/20 09:47 White Blood Count 18.0 K/UL (4.8-10.8) H Red Blood Count 3.30 M/UL (4.20-5.40) L Hemoglobin 10.2 G/DL (12.0-16.0) L Hematocrit 33.2 % (37.0-47.0) L Mean Corpuscular Volume 101 FL (80-99) H Mean Corpuscular Hemoglobin 30.9 PG (27.0-31.0) Mean Corpuscular Hemoglobin Concent 30.8 G/DL (32.0-36.0) L Red Cell Distribution Width 15.3 % (11.6-14.8) H Platelet Count 311 K/UL (150-450) Mean Platelet Volume 7.6 FL (6.5-10.1) Neutrophils (%) (Auto) % (45.0-75.0) Lymphocytes (%) (Auto) % (20.0-45.0) Monocytes (%) (Auto) % (1.0-10.0) Eosinophils (%) (Auto) % (0.0-3.0) Basophils (%) (Auto) % (0.0-2.0) Differential Total Cells Counted 100 Neutrophils % (Manual) 82 % (45-75) H Lymphocytes % (Manual) 13 % (20-45) L Monocytes % (Manual) 4 % (1-10) Eosinophils % (Manual) 1 % (0-3) Basophils % (Manual) 0 % (0-2) Band Neutrophils 0 % (0-8) Platelet Estimate Adequate Platelet Morphology Normal Hypochromasia 1+ Anisocytosis 1+ Macrocytosis 1+ Sodium Level 167 MMOL/L (136-145) *H Potassium Level 3.0 MMOL/L (3.5-5.1) L Chloride Level 128 MMOL/L (98-107) H Carbon Dioxide Level 32 MMOL/L (21-32) Anion Gap 7 mmol/L (5-15) Blood Urea Nitrogen 23 mg/dL (7-18) H Creatinine 1.0 MG/DL (0.55-1.30) Estimat Glomerular Filtration Rate 56.4 mL/min (>60) Glucose Level 138 MG/DL (74-106) H Calcium Level 9.2 MG/DL (8.5-10.1) Total Bilirubin 0.3 MG/DL (0.2-1.0) Aspartate Amino Transf (AST/SGOT) 47 U/L (15-37) H Alanine Aminotransferase (ALT/SGPT) 55 U/L (12-78) Alkaline Phosphatase 141 U/L (46-116) H Total Protein 6.3 G/DL (6.4-8.2) L Albumin 1.3 G/DL (3.4-5.0) L Globulin 5.0 g/dL Albumin/Globulin Ratio 0.3 (1.0-2.7) L Plan Problems: (1) Malnutrition Assessment & Plan: not eating enough TF started adv as tolerated bowel regimen worsening prognosis guarded DDAILY ESTIMATED NEEDS: Needs based on Wound, pulmonary / 56kg 25-35 kcals/kg 7394-8719 total kcals 1.25-1.8 g protein/kg 70-100 g total protein 25-30 mL/kg 5006-6295 total fluid mLs NUTRITION DIAGNOSIS: * Swallowing difficulty R/T dysphagia as evidenced by GAS APPLIANCE ADJUSTER w/ rec for NPO, now on NGT feeds. * Increased kcal/prot/micronutrients needs R/T wound healing as evidenced by pt admitted w/ multiple wounds including full thickness wound @ sacrum, TPI wound @ L Gluteal cheek, and non-Blanchable erythema @ BL heels. CURRENT TF:Jevity 1.2 @30ml/hr ENTERAL NUTRITION RECOMMENDATIONS: JEVITY 1.2 goal of 55ml/hr x24 hrs to provide 1320ml, 1584 kcal, 73g pro, 1065ml free H2O - rec to INCREASE current TF as tolerated to goal of 55ml/hr to better meet est needs. - flush per , HOB over 30 degrees ADDITIONAL RECOMMENDATIONS: * Per SNF: HT=66" FX=338ezb (03/07/20) * Wound healing: continue MVI, Vit C, and ZnSO4 * VIA NGT-> add TONI BID for wound care TF recs as above * Monitor lytes, replete as needed THIS 60 Y.O.M. WAS ADMITTED WITH ACUTE ISSUES - FEVER, HYPOXIC WITH LOW 02 SATS ON NON-REBREATHER, RESP RATE 18 BPM INITIALLY PER MEDICAL RECORD. PER RN, THE PATIENT HAD A RAPID RESPOSE THIS MORNING (DESAT TO 90S AND RAPID RESP RATE). H/O COPD, CARDIAC DZ, HYPOTHYROIDISM, HTN, ALLERGIC RHINITIS, SCHIZOPHRENIA (ON OLANZAPINE AT SNF), BASELINE NONVERBAL. PER POLST FULL TX BUT NO INFORMATION REGARDING TUBE FEEDING PREFERENCES. AT SNF ON A REGULAR DIET TEXTURE AND THIN LIQUIDS WITH PROSTAT SF DRINK WITH MEALS. NOW ON A REGULAR TEXTURE DIET AND THIN LIQUIDS BUT DID NOT TAKE ANY PO. PER RNLAURIE, THE PT UNABLE TO TAKE LARGE PILLS BUT APPEARED TO TOLERATE CRUSHED MEDS WITH APPLESAUCE W/O OVERT ASPIRATION. PATIENT SEEN WITH RTFUNMI. PER RT RESP RATE 22 BPM AND NOT ABLE TO ongoing unintelligible confabulations. Patient did request a sandwich, however, not appropriate for regular texture at this time. VITALS ON 2 L NASAL CANNULA: HR: 73; RR: 20; SP02: 95% Patient's oral hygiene is improving, ongoing poor speech intelligibility which appears to be more due to poor articulation precision/oral motor coordination versus 2/2 dry mouth. CXR on 03/14/20: Findings: Interim considerable improvement of previously demonstrated left lower lobe infiltrate. There is a residual disease in the retrocardiac region as well as generalized reticular interstitial opacities throughout the left mid and lower lung. There is questionably a 3 cm spiculated opacity projected over the apex. Minimal right mid and lower lung reticular opacities are also demonstrated. There is some right midlung atelectasis versus thickening of the minor fissure. The heart size is normal. The pleural spaces are clear Impression: Considerable improvement the persistence of previously demonstrated left mid and lower lung infiltrates, since prior study of 03/11/2020. GAS APPLIANCE ADJUSTER plans to continue to f/u and monitor Patients readiness for PO trials for diet texture upgrade. RN aware of recommendations, plan, and aspiration precautions sign posted above Patients HOB. RECOMMENDATIONS: 1. Continue Moist Puree with [place] Thick Liquids Diet via 1 to 1 careful handfeeding while implementing posted aspiration precautions - RD recommendations appreciated for diet texture/type 2. Patient requires oral hygiene BID + lip moisturizer. (2) Decubitus skin ulcer Assessment & Plan: Pt presented on admission with multiple pressure injuries. Full thickness Pressure injury Sacrococcygeal area. (L)4cm x (W)2.5cm. Base of wound is fatou with scattered slough ,which was easily removed with gentle friction. Wound is now fatou with 25% soft necrosis at distal base of wound. Small amt sanguineous exudate noted.No odor noted. Periwound erythematous and denuded. Two additional Pressure Injuries noted to R gluteal cheek.(Proximal) Base of wound is purple and indurated(L)3cm x (W)1.5cm. Surrounding erythematous and denuded skin (Distal) R gluteus(L)1.4cm x (W)0.6cm. Base of wound is purple, indurated with surrounding erythematous and denuded skin. DTPI L Gluteal cheek (L)1.5cm x (W)1.3cm. Base of wound is indurated, purple with surrounding non-blanching erythema. Additional scattered areas that are maroon in colour noted to L gluteal cheek. Lateral L Heel boggy with non-blanching erythema with delineated margins. (L) 4cm x (W)4.5cm. Lateral R Heel Boggy with non-Blanchable erythema with delineated margins(L) 2.5cm x (W)2.5cm. Tx.Plan: Cleanse Sacrococcygeal area with saline. Apply TheraHoney , Apply Moisture Barrier Paste to Sacrum, R and L Buttocks. Cover entire Area with Optifoam drsgs. Change every 3 days and prn. Apply Moisture Barrier Paste to R and L Buttocks . Cover with Optifoam drsgs. Changee very 3 days and prn. Apply Cavilon Skin Barrier to R and L Trochanteric areas. Cover with Optifoam drsg. Change every 7 days and prn. Apply Cavilon Skin Barrier to R and L Heels. Cover each heel with Optifoam drsg. Change every 7 days and prn. Reposition at least every 2hours or as tolerated. Off-load heels with Pillow. APM/ERIK Mattress. (3) Pneumonia Assessment & Plan: Lungs: There is mild left lower lobe infiltrate consistent with pneumonia. Pleural space: Unremarkable. No pneumothorax. Heart: The heart size is at the upper limits of normal. Mediastinum: Unremarkable. Bones/joints: Unremarkable. IMPRESSION: There is mild left lower lobe infiltrate consistent with pneumonia. worsening on bipap now will monitor closely intubated now 03/21 wean vent Continue weaning. Will hopefully be extubated potentially. Gases noted. (4) COPD (chronic obstructive pulmonary disease) Assessment & Plan: On vent support weaning Potential extubation soon not able to extubate as not safe with current status possible withdraw care as no function possible brain (5) Fever Eddie Perez Apr 04, 2020 16:58
--- NOTE | 2020-04-04 17:15 | NUR ---
NURSE NOTES: Titrated down Sly from 30mcg/min to 10mcg/min. BP 89/68
--- NOTE | 2020-04-04 17:30 | NUR ---
NURSE NOTES: Off Sly. Will continue to monitor closely.
--- NOTE | 2020-04-04 17:55 | NUR ---
NURSE NOTES: Bed bath given. Kept dry, clean, comfortable and HOB>30. Will continue plan of care.
--- NOTE | 2020-04-04 18:58 | NUR ---
RESPIRATORY NOTE: Received pt on AC 14, 500VT, 40%, PEEP +10. Pt intubated w/ ETT 7.5 @ 23cm lipline, secured by anchorfast. Pt obtunded. B/S torsten. diminished, sxn scant amounts of thin, clear to no secretions. Vent plugged into red outlet, ambubag at bedside. Pt in no apparent distress at this time. Will continue to monitor pt.
--- NOTE | 2020-04-04 19:10 | NUR ---
NURSE NOTES: Received report from SHARATH Tapia. Pt is non-responsive Afebrile and VSS Na was high in AM, continuos gtt changed to D5W 125mL/hr. ETT 7.5, 23 cm at Lip. VENT Setting: AC 14, VT 500, Fi02 40%, Peep 10. Secretion is thin and moderate Feeding has stopped due to high volume of residual NO BM per AM shift Lainez draining 150-200mL/hr yellow urine. Skin: Sacrum stage 4 and wound consults on board. Will continue to monitor
--- NOTE | 2020-04-04 19:10 | NUR ---
NURSE NOTES: Received report from SHARATH Tapia. Pt is non-responsive Feeding has been stopped due to high volume of residual. MD aware. Levo 16mcgs and D5 125mL running. IV site is CDI ETT 7.5, 23 cm at Lip. VENT Setting: AC 14, VT 500, Fi02 40%, Peep 10. Secretion is thin and moderate NO BM per AM Lainez draining yellow urine 200-250 per hour. Skin issue, Sacrum stage 4 and wound consults on board. Will continue to monitor
--- NOTE | 2020-04-04 19:12 | NUR ---
HAND-OFF: Report given to SHARATH Choi. Endorsed plan of care.
[2020-04-04] MEDS: Dyna-Hex 2% Top Sol 2oz TOPIC SCH (19:27)
--- NOTE | 2020-04-04 21:00 | NUR ---
NURSE NOTES: PM meds given IV sites are CDI Repositioned Oral care provided No acute distress noted Afebrile and VSS
--- NOTE | 2020-04-04 22:08 | General Progress Note ---
Assessment/Plan Status: stable, progressing Assessment/Plan: Assessment - Resp failure - dysphagia - COPD - Anemia - leukocytosis - sepsis - hypothyroid - poor prognosis Recommendations - pulmonary f/u - Tube feeds - Change IVF to D5W, add KCL IV and PO - elevate HOB - follow labs and exam - abx - PEG placement on hold Subjective Allergies: Coded Allergies: PENICILLINS (Verified Allergy, Unknown, 03/11/20) Subjective Above noted seen in ICU on vent d/w RN - electrolyte changes reviewed on pressors Objective Last 24 Hour Vital Signs Date Time Temp Pulse Resp B/P (MAP) Pulse Ox O2 Delivery O2 Flow Rate FiO2 04/04/20 20:30 68 14 107/76 (86) 100 04/04/20 20:15 69 14 110/80 (90) 100 04/04/20 20:00 Mechanical Ventilator 04/04/20 20:00 40 04/04/20 20:00 69 14 112/82 (92) 100 04/04/20 19:00 110/79 04/04/20 19:00 69 14 110/79 (89) 100 04/04/20 18:55 70 14 100 Mechanical Ventilator 40 70 14 100 04/04/20 18:30 70 14 100/75 (83) 100 04/04/20 18:00 70 14 104/74 (84) 99 04/04/20 18:00 104/74 04/04/20 17:45 91/73 04/04/20 17:30 76 14 89/68 (75) 99 04/04/20 17:30 102/72 04/04/20 17:15 89/68 04/04/20 17:00 71 14 86/57 (67) 100 04/04/20 17:00 86/57 04/04/20 16:45 78/58 04/04/20 16:30 71 14 78/58 (65) 99 04/04/20 16:30 69/44 04/04/20 16:15 130/62 04/04/20 16:09 132/94 04/04/20 16:00 97.0 73 14 132/94 (107) 100 04/04/20 16:00 40 04/04/20 16:00 72 04/04/20 16:00 142/87 04/04/20 16:00 Mechanical Ventilator 04/04/20 15:30 70 14 112/77 (89) 100 04/04/20 15:10 71 14 100 Mechanical Ventilator 40 70 14 100 04/04/20 15:00 113/78 04/04/20 15:00 70 14 113/78 (90) 100 04/04/20 14:30 70 14 118/84 (95) 100 04/04/20 14:00 71 14 123/85 (98) 100 04/04/20 14:00 123/85 04/04/20 13:30 72 14 112/76 (88) 100 04/04/20 13:00 72 14 119/78 (92) 98 04/04/20 13:00 119/78 04/04/20 12:30 72 14 107/78 (88) 100 04/04/20 12:00 Mechanical Ventilator 04/04/20 12:00 74 04/04/20 12:00 125/83 04/04/20 12:00 40 04/04/20 12:00 97.0 74 14 111/77 (88) 100 04/04/20 11:53 74 14 100 Mechanical Ventilator 40 74 14 100 04/04/20 11:30 74 14 112/79 (90) 100 04/04/20 11:00 76 14 110/74 (86) 100 04/04/20 11:00 106/80 04/04/20 10:30 77 14 105/76 (86) 100 04/04/20 10:00 78 14 112/79 (90) 100 04/04/20 10:00 118/80 04/04/20 09:54 40 04/04/20 09:45 112/79 04/04/20 09:30 76 14 108/69 (82) 100 04/04/20 09:30 108/69 04/04/20 09:15 88/63 04/04/20 09:00 40 04/04/20 09:00 81/56 04/04/20 09:00 75 14 88/63 (71) 100 04/04/20 08:30 76 14 97/71 (80) 100 04/04/20 08:00 102/69 04/04/20 08:00 97.1 77 14 102/69 (80) 100 04/04/20 08:00 76 04/04/20 08:00 Mechanical Ventilator 04/04/20 07:50 50 04/04/20 07:46 76 14 100 Mechanical Ventilator 50 76 14 100 04/04/20 07:30 75 14 99/71 (80) 100 04/04/20 07:00 70 04/04/20 07:00 76 14 108/70 (83) 100 04/04/20 07:00 108/70 04/04/20 06:00 97.0 77 14 98/71 (80) 100 04/04/20 06:00 98/71 04/04/20 05:30 78 14 105/70 (82) 100 04/04/20 05:05 101/69 04/04/20 05:00 79 14 101/69 (80) 100 04/04/20 04:30 76 18 101/71 (81) 100 04/04/20 04:00 90 04/04/20 04:00 71 04/04/20 04:00 Mechanical Ventilator 04/04/20 04:00 121/80 04/04/20 04:00 71 14 121/80 (94) 100 04/04/20 03:30 71 14 122/85 (97) 100 04/04/20 03:14 77 14 100 Mechanical Ventilator 70 79 14 100 04/04/20 03:00 72 14 130/78 (95) 100 04/04/20 03:00 130/78 04/04/20 02:30 74 14 99/71 (80) 100 04/04/20 02:00 104/69 04/04/20 02:00 78 14 104/69 (81) 100 04/04/20 01:30 89 14 164/96 (118) 100 04/04/20 01:00 87 14 120/89 (99) 100 04/04/20 01:00 120/89 04/04/20 00:30 77 14 141/90 (107) 100 04/04/20 00:00 Mechanical Ventilator 04/04/20 00:00 77 14 131/84 (100) 100 04/04/20 00:00 131/84 04/04/20 00:00 77 04/04/20 00:00 90 04/03/20 23:36 78 130/81 04/03/20 23:00 130/81 04/03/20 23:00 78 14 130/81 (97) 100 04/03/20 22:30 79 14 130/86 (101) 100 Intake and Output 04/03/20 04/04/20 19:00 07:00 Intake Total 2589.906 ml 1848.7 ml Output Total 1445 ml 2375 ml Balance 1144.906 ml -526.3 ml Free Water 10 ml IV Total 2289.906 ml 1568.7 ml Tube Feeding 255 ml 270 ml Other 45 ml Output Urine Total 1445 ml 2375 ml # Bowel Movements 1 Laboratory Tests 04/04/20 09:47: White Blood Count 18.0H, Red Blood Count 3.30L, Hemoglobin 10.2L, Hematocrit 33.2L, Mean Corpuscular Volume 101H, Mean Corpuscular Hemoglobin 30.9, Mean Corpuscular Hemoglobin Concent 30.8L, Red Cell Distribution Width 15.3H, Platelet Count 311, Mean Platelet Volume 7.6, Neutrophils (%) (Auto) , Lymphocytes (%) (Auto) , Monocytes (%) (Auto) , Eosinophils (%) (Auto) , Basophils (%) (Auto) , Differential Total Cells Counted 100, Neutrophils % ( Manual) 82H, Lymphocytes % (Manual) 13L, Monocytes % (Manual) 4, Eosinophils % ( Manual) 1, Basophils % (Manual) 0, Band Neutrophils 0, Platelet Estimate Adequate, Platelet Morphology Normal, Hypochromasia 1+, Anisocytosis 1+, Macrocytosis 1+, Sodium Level 167*H, Potassium Level 3.0L, Chloride Level 128H, Carbon Dioxide Level 32, Anion Gap 7, Blood Urea Nitrogen 23H, Creatinine 1.0, Estimat Glomerular Filtration Rate 56.4, Glucose Level 138H, Calcium Level 9.2, Total Bilirubin 0.3, Aspartate Amino Transf (AST/SGOT) 47H, Alanine Aminotransferase (ALT/SGPT) 55, Alkaline Phosphatase 141H, Total Protein 6.3L, Albumin 1.3L, Globulin 5.0, Albumin/Globulin Ratio 0.3L Height (Feet): 5 Height (Inches): 5.00 Weight (Pounds): 130 Objective Thin WW NCAT (+) ETT supple coarse BS RR abd soft NT ND no edema Douglas Tucker MD Apr 04, 2020 22:08
--- NOTE | 2020-04-04 22:25 | General Progress Note ---
Assessment/Plan Problem List: (1) COPD (chronic obstructive pulmonary disease) ICD Codes: J44.9 - Chronic obstructive pulmonary disease, unspecified SNOMED: 86274609 Qualifiers: Qualified Codes: J44.9 - Chronic obstructive pulmonary disease, unspecified (2) Pneumonia ICD Codes: J18.9 - Pneumonia, unspecified organism SNOMED: 534136155 Qualifiers: Qualified Codes: J18.9 - Pneumonia, unspecified organism (3) Fever ICD Codes: R50.9 - Fever, unspecified SNOMED: 367101085 Status: stable, progressing Assessment/Plan: vent support resp rx and suctioning iv abx per id follow up labs ivf oral synthroid tube feeds monitor labs skin care turn q2 neuro eval to confirm eeg terminal extubation if brain confirmed critical and guarded Subjective ROS Limited/Unobtainable: Yes Constitutional: Reports: no symptoms HEENT: Reports: no symptoms Cardiovascular: Reports: no symptoms Respiratory: Reports: no symptoms Gastrointestinal/Abdominal: Reports: difficulty swallowing Genitourinary: Reports: no symptoms Neurologic/Psychiatric: Reports: pre-existing deficit Endocrine: Reports: no symptoms Allergies: Coded Allergies: PENICILLINS (Verified Allergy, Unknown, 03/11/20) All Systems: reviewed and negative except above Subjective events noted. s/p code blue. unresponsive. no activity on eeg Objective Last 24 Hour Vital Signs Date Time Temp Pulse Resp B/P (MAP) Pulse Ox O2 Delivery O2 Flow Rate FiO2 04/04/20 20:30 68 14 107/76 (86) 100 04/04/20 20:15 69 14 110/80 (90) 100 04/04/20 20:00 Mechanical Ventilator 04/04/20 20:00 40 04/04/20 20:00 69 14 112/82 (92) 100 04/04/20 19:00 110/79 04/04/20 19:00 69 14 110/79 (89) 100 04/04/20 18:55 70 14 100 Mechanical Ventilator 40 70 14 100 04/04/20 18:30 70 14 100/75 (83) 100 04/04/20 18:00 70 14 104/74 (84) 99 04/04/20 18:00 104/74 04/04/20 17:45 91/73 04/04/20 17:30 76 14 89/68 (75) 99 7/1/20 17:30 102/72 04/04/20 17:15 89/68 04/04/20 17:00 71 14 86/57 (67) 100 04/04/20 17:00 86/57 04/04/20 16:45 78/58 04/04/20 16:30 71 14 78/58 (65) 99 04/04/20 16:30 69/44 04/04/20 16:15 130/62 04/04/20 16:09 132/94 04/04/20 16:00 97.0 73 14 132/94 (107) 100 04/04/20 16:00 40 04/04/20 16:00 72 04/04/20 16:00 142/87 04/04/20 16:00 Mechanical Ventilator 04/04/20 15:30 70 14 112/77 (89) 100 04/04/20 15:10 71 14 100 Mechanical Ventilator 40 70 14 100 04/04/20 15:00 113/78 04/04/20 15:00 70 14 113/78 (90) 100 04/04/20 14:30 70 14 118/84 (95) 100 04/04/20 14:00 71 14 123/85 (98) 100 04/04/20 14:00 123/85 04/04/20 13:30 72 14 112/76 (88) 100 04/04/20 13:00 72 14 119/78 (92) 98 04/04/20 13:00 119/78 04/04/20 12:30 72 14 107/78 (88) 100 04/04/20 12:00 Mechanical Ventilator 04/04/20 12:00 74 04/04/20 12:00 125/83 04/04/20 12:00 40 04/04/20 12:00 97.0 74 14 111/77 (88) 100 04/04/20 11:53 74 14 100 Mechanical Ventilator 40 74 14 100 04/04/20 11:30 74 14 112/79 (90) 100 04/04/20 11:00 76 14 110/74 (86) 100 04/04/20 11:00 106/80 04/04/20 10:30 77 14 105/76 (86) 100 04/04/20 10:00 78 14 112/79 (90) 100 04/04/20 10:00 118/80 04/04/20 09:54 40 04/04/20 09:45 112/79 04/04/20 09:30 76 14 108/69 (82) 100 04/04/20 09:30 108/69 04/04/20 09:15 88/63 04/04/20 09:00 40 04/04/20 09:00 81/56 04/04/20 09:00 75 14 88/63 (71) 100 04/04/20 08:30 76 14 97/71 (80) 100 04/04/20 08:00 102/69 04/04/20 08:00 97.1 77 14 102/69 (80) 100 04/04/20 08:00 76 04/04/20 08:00 Mechanical Ventilator 04/04/20 07:50 50 04/04/20 07:46 76 14 100 Mechanical Ventilator 50 76 14 100 04/04/20 07:30 75 14 99/71 (80) 100 04/04/20 07:00 70 04/04/20 07:00 76 14 108/70 (83) 100 04/04/20 07:00 108/70 04/04/20 06:00 97.0 77 14 98/71 (80) 100 04/04/20 06:00 98/71 04/04/20 05:30 78 14 105/70 (82) 100 04/04/20 05:05 101/69 04/04/20 05:00 79 14 101/69 (80) 100 04/04/20 04:30 76 18 101/71 (81) 100 04/04/20 04:00 90 04/04/20 04:00 71 04/04/20 04:00 Mechanical Ventilator 04/04/20 04:00 121/80 04/04/20 04:00 71 14 121/80 (94) 100 04/04/20 03:30 71 14 122/85 (97) 100 04/04/20 03:14 77 14 100 Mechanical Ventilator 70 79 14 100 04/04/20 03:00 72 14 130/78 (95) 100 04/04/20 03:00 130/78 04/04/20 02:30 74 14 99/71 (80) 100 04/04/20 02:00 104/69 04/04/20 02:00 78 14 104/69 (81) 100 04/04/20 01:30 89 14 164/96 (118) 100 04/04/20 01:00 87 14 120/89 (99) 100 04/04/20 01:00 120/89 04/04/20 00:30 77 14 141/90 (107) 100 04/04/20 00:00 Mechanical Ventilator 04/04/20 00:00 77 14 131/84 (100) 100 04/04/20 00:00 131/84 04/04/20 00:00 77 04/04/20 00:00 90 04/03/20 23:36 78 130/81 04/03/20 23:00 130/81 04/03/20 23:00 78 14 130/81 (97) 100 04/03/20 22:30 79 14 130/86 (101) 100 Intake and Output 04/03/20 04/04/20 19:00 07:00 Intake Total 2589.906 ml 1848.7 ml Output Total 1445 ml 2375 ml Balance 1144.906 ml -526.3 ml Free Water 10 ml IV Total 2289.906 ml 1568.7 ml Tube Feeding 255 ml 270 ml Other 45 ml Output Urine Total 1445 ml 2375 ml # Bowel Movements 1 Laboratory Tests 04/04/20 09:47: White Blood Count 18.0H, Red Blood Count 3.30L, Hemoglobin 10.2L, Hematocrit 33.2L, Mean Corpuscular Volume 101H, Mean Corpuscular Hemoglobin 30.9, Mean Corpuscular Hemoglobin Concent 30.8L, Red Cell Distribution Width 15.3H, Platelet Count 311, Mean Platelet Volume 7.6, Neutrophils (%) (Auto) , Lymphocytes (%) (Auto) , Monocytes (%) (Auto) , Eosinophils (%) (Auto) , Basophils (%) (Auto) , Differential Total Cells Counted 100, Neutrophils % ( Manual) 82H, Lymphocytes % (Manual) 13L, Monocytes % (Manual) 4, Eosinophils % ( Manual) 1, Basophils % (Manual) 0, Band Neutrophils 0, Platelet Estimate Adequate, Platelet Morphology Normal, Hypochromasia 1+, Anisocytosis 1+, Macrocytosis 1+, Sodium Level 167*H, Potassium Level 3.0L, Chloride Level 128H, Carbon Dioxide Level 32, Anion Gap 7, Blood Urea Nitrogen 23H, Creatinine 1.0, Estimat Glomerular Filtration Rate 56.4, Glucose Level 138H, Calcium Level 9.2, Total Bilirubin 0.3, Aspartate Amino Transf (AST/SGOT) 47H, Alanine Aminotransferase (ALT/SGPT) 55, Alkaline Phosphatase 141H, Total Protein 6.3L, Albumin 1.3L, Globulin 5.0, Albumin/Globulin Ratio 0.3L Height (Feet): 5 Height (Inches): 5.00 Weight (Pounds): 130 Objective General Appearance: WD/WN, unresponsive intubated Neck: non-tender Cardiovascular: normal rate, regular rhythm Respiratory/Chest: chest wall non-tender, lungs clear, normal breath sounds Abdomen: normal bowel sounds, non tender, soft, no organomegaly Edema: no edema noted Arm (L), no edema noted Arm (R), no edema noted Leg (L), no edema noted Leg (R), no edema noted Pedal (L), no edema noted Pedal (R), no edema noted Generalized Neurologic: unresponsive Isaak Ledesma MD Apr 04, 2020 22:25
--- NOTE | 2020-04-04 23:00 | NUR ---
NURSE NOTES: Pt remains non-responsive IV sites are CDI Repositioned Oral care provided No acute distress noted Afebrile and VSS Will continue to monitor
[2020-04-05] VITALS (41 sets, daily range): BP systolic 49–144; BP diastolic 31–100
--- NOTE | 2020-04-05 | NUR ---
NURSE NOTES: Pt remains non-responsive Pt residual was 30mL Asymptomatic Repositioned Oral care provided Afebrile and VSS Will continue to monitor
[2020-04-05] MEDS: Vancomycin 1 GM in NS 275 ML IVPB SCH ×2 (02:01→13:23)
[2020-04-05] MEDS: Albuterol 90mcg Inhaler 8gm INH SCH ×6 (02:59→23:41)
--- NOTE | 2020-04-05 04:00 | NUR ---
NURSE NOTES: Pt remains non-responsive Afebrile and VSS IV sites are CDI Repositioned Oral care provided No acute distress noted Will continue to monitor
[2020-04-05 04:41] LABS: BASOPHILS % (AUTO) 0.9 % (0.0-2.0); EOSINOPHILS % (AUTO) 3.5 % (0.0-3.0); HEMOGLOBIN 10.4 G/DL (12.0-16.0); LYMPHOCYTES % (AUTO) 14.1 % (20.0-45.0); MEAN CORPUSCULAR VOLUME 101 FL (80-99); NEUTROPHILS % (AUTO) 79.5 % (45.0-75.0); PLATELET COUNT 279 K/UL (150-450); RED BLOOD COUNT 3.37 M/UL (4.20-5.40); WHITE BLOOD COUNT 14.5 K/UL (4.8-10.8)
[2020-04-05 05:21] LABS: ALANINE AMINOTRANSFERASE 46 U/L (12-78); ALBUMIN 1.3 G/DL (3.4-5.0); ALBUMIN/GLOBULIN RATIO 0.2 (1.0-2.7); ALKALINE PHOSPHATASE 154 U/L (46-116); ANION GAP 9 mmol/L (5-15); ASPARTATE AMINO TRANSFERASE 48 U/L (15-37); BILIRUBIN,TOTAL 0.2 MG/DL (0.2-1.0); BLOOD UREA NITROGEN 24 mg/dL (7-18); CALCIUM 9.3 MG/DL (8.5-10.1); CARBON DIOXIDE 30 MMOL/L (21-32); CHLORIDE 126 MMOL/L (98-107); CREATININE 1.1 MG/DL (0.55-1.30); POTASSIUM 3.3 MMOL/L (3.5-5.1)
[2020-04-05 05:24] LABS: SODIUM 164 MMOL/L (136-145)
--- NOTE | 2020-04-05 05:30 | NUR ---
NURSE NOTES: Na is still high 164. Notified to Dr. Ledesma's office. Pt is asymptomatic
--- NOTE | 2020-04-05 07:04 | NUR ---
HAND-OFF: Report given to SHARATH Tapia. Endorsed POC.
--- NOTE | 2020-04-05 07:05 | NUR ---
NURSE NOTES: Received report from SHARATH Choi. Patient is in comatose. No responsive to verbal and deep pain. Bilateral pupils dilated and fixed. ETT 7.5/23cm at lip line with vent setting AC 14, VT 500, FiO2 40% and Peep 10. Left NGT intact and clamped. Lainez intact, patent and draining with yellow color urine. Left upper arm PICC intact, clean and running with levophed 16mcg/min and D5W 125ml/hr. Kept dry, clean and comfortable. Will continue plan of care.
--- NOTE | 2020-04-05 07:39 | Surgery Progress Note ---
Surgery Progress Note Subjective Additional Comments unresponsive on support no n/v/fc labs noted wbc trending down exam unchanged Objective Last 24 Hour Vital Signs Date Time Temp Pulse Resp B/P (MAP) Pulse Ox O2 Delivery O2 Flow Rate FiO2 04/05/20 07:13 66 14 100 Mechanical Ventilator 40 70 14 100 04/05/20 07:00 65 14 111/77 (88) 100 04/05/20 06:00 96.1 66 14 114/74 (87) 100 04/05/20 06:00 114/74 04/05/20 05:30 66 14 110/74 (86) 100 04/05/20 05:00 67 14 109/78 (88) 100 04/05/20 05:00 109/78 04/05/20 04:00 Mechanical Ventilator 04/05/20 04:00 71 13 115/83 (94) 100 04/05/20 04:00 40 04/05/20 04:00 71 04/05/20 04:00 115/83 04/05/20 03:00 115/83 04/05/20 03:00 71 13 115/83 (94) 100 04/05/20 02:58 70 14 100 Mechanical Ventilator 40 70 14 100 04/05/20 02:30 72 14 101/71 (81) 100 04/05/20 02:00 114/79 04/05/20 02:00 67 14 114/79 (91) 100 04/05/20 01:30 68 14 110/76 (87) 100 04/05/20 01:00 110/76 04/05/20 01:00 69 14 101/68 (79) 100 04/05/20 00:00 69 04/05/20 00:00 132/86 04/05/20 00:00 97.1 69 14 132/86 (101) 100 04/05/20 00:00 Mechanical Ventilator 04/04/20 23:20 117/78 04/04/20 23:00 68 14 112/81 (91) 100 04/04/20 22:59 68 14 100 Mechanical Ventilator 40 68 14 100 04/04/20 22:30 68 14 103/76 (85) 100 04/04/20 22:00 68 14 108/74 (85) 100 04/04/20 21:30 68 14 115/80 (92) 100 04/04/20 21:00 68 14 109/78 (88) 100 04/04/20 20:30 68 14 107/76 (86) 100 04/04/20 20:15 69 14 110/80 (90) 100 04/04/20 20:00 Mechanical Ventilator 04/04/20 20:00 69 04/04/20 20:00 40 04/04/20 20:00 97.2 69 14 112/82 (92) 100 04/04/20 19:00 110/79 04/04/20 19:00 69 14 110/79 (89) 100 04/04/20 18:55 70 14 100 Mechanical Ventilator 40 70 14 100 04/04/20 18:30 70 14 100/75 (83) 100 04/04/20 18:00 70 14 104/74 (84) 99 04/04/20 18:00 104/74 04/04/20 17:45 91/73 04/04/20 17:30 76 14 89/68 (75) 99 04/04/20 17:30 102/72 04/04/20 17:15 89/68 04/04/20 17:00 71 14 86/57 (67) 100 04/04/20 17:00 86/57 04/04/20 16:45 78/58 04/04/20 16:30 71 14 78/58 (65) 99 04/04/20 16:30 69/44 04/04/20 16:15 130/62 04/04/20 16:09 132/94 04/04/20 16:00 97.0 73 14 132/94 (107) 100 04/04/20 16:00 40 04/04/20 16:00 72 04/04/20 16:00 142/87 04/04/20 16:00 Mechanical Ventilator 04/04/20 15:30 70 14 112/77 (89) 100 04/04/20 15:10 71 14 100 Mechanical Ventilator 40 70 14 100 04/04/20 15:00 113/78 04/04/20 15:00 70 14 113/78 (90) 100 04/04/20 14:30 70 14 118/84 (95) 100 04/04/20 14:00 71 14 123/85 (98) 100 04/04/20 14:00 123/85 04/04/20 13:30 72 14 112/76 (88) 100 04/04/20 13:00 72 14 119/78 (92) 98 04/04/20 13:00 119/78 04/04/20 12:30 72 14 107/78 (88) 100 04/04/20 12:00 Mechanical Ventilator 04/04/20 12:00 74 04/04/20 12:00 125/83 04/04/20 12:00 40 04/04/20 12:00 97.0 74 14 111/77 (88) 100 04/04/20 11:53 74 14 100 Mechanical Ventilator 40 74 14 100 04/04/20 11:30 74 14 112/79 (90) 100 04/04/20 11:00 76 14 110/74 (86) 100 04/04/20 11:00 106/80 04/04/20 10:30 77 14 105/76 (86) 100 04/04/20 10:00 78 14 112/79 (90) 100 04/04/20 10:00 118/80 04/04/20 09:54 40 04/04/20 09:45 112/79 04/04/20 09:30 76 14 108/69 (82) 100 04/04/20 09:30 108/69 04/04/20 09:15 88/63 04/04/20 09:00 40 04/04/20 09:00 81/56 04/04/20 09:00 75 14 88/63 (71) 100 04/04/20 08:30 76 14 97/71 (80) 100 04/04/20 08:00 102/69 04/04/20 08:00 97.1 77 14 102/69 (80) 100 04/04/20 08:00 76 04/04/20 08:00 Mechanical Ventilator 04/04/20 07:50 50 04/04/20 07:46 76 14 100 Mechanical Ventilator 50 76 14 100 I&O Intake and Output 04/04/20 04/05/20 19:00 07:00 Intake Total 2104.4375 ml 1684 ml Output Total 1750 ml 2000 ml Balance 354.4375 ml -316 ml Free Water 30 ml 80 ml IV Total 2044.4375 ml 1604 ml Tube Feeding 30 ml 0 ml Output Urine Total 1750 ml 2000 ml Dressing: other Wound: other Drains: other Cardiovascular: RSR Respiratory: decreased breath sounds Abdomen: soft, present bowel sounds Extremities: no tenderness, no cyanosis Laboratory Tests Test 04/04/20 09:47 04/05/20 04:22 White Blood Count 18.0 K/UL (4.8-10.8) H 14.5 K/UL (4.8-10.8) H Red Blood Count 3.30 M/UL (4.20-5.40) L 3.37 M/UL (4.20-5.40) L Hemoglobin 10.2 G/DL (12.0-16.0) L 10.4 G/DL (12.0-16.0) L Hematocrit 33.2 % (37.0-47.0) L 34.0 % (37.0-47.0) L Mean Corpuscular Volume 101 FL (80-99) H 101 FL (80-99) H Mean Corpuscular Hemoglobin 30.9 PG (27.0-31.0) 31.0 PG (27.0-31.0) Mean Corpuscular Hemoglobin Concent 30.8 G/DL (32.0-36.0) L 30.7 G/DL (32.0-36.0) L Red Cell Distribution Width 15.3 % (11.6-14.8) H 15.0 % (11.6-14.8) H Platelet Count 311 K/UL (150-450) 279 K/UL (150-450) Mean Platelet Volume 7.6 FL (6.5-10.1) 8.0 FL (6.5-10.1) Neutrophils (%) (Auto) % (45.0-75.0) 79.5 % (45.0-75.0) H Lymphocytes (%) (Auto) % (20.0-45.0) 14.1 % (20.0-45.0) L Monocytes (%) (Auto) % (1.0-10.0) 2.0 % (1.0-10.0) Eosinophils (%) (Auto) % (0.0-3.0) 3.5 % (0.0-3.0) H Basophils (%) (Auto) % (0.0-2.0) 0.9 % (0.0-2.0) Differential Total Cells Counted 100 Neutrophils % (Manual) 82 % (45-75) H Lymphocytes % (Manual) 13 % (20-45) L Monocytes % (Manual) 4 % (1-10) Eosinophils % (Manual) 1 % (0-3) Basophils % (Manual) 0 % (0-2) Band Neutrophils 0 % (0-8) Platelet Estimate Adequate Platelet Morphology Normal Hypochromasia 1+ Anisocytosis 1+ Macrocytosis 1+ Sodium Level 167 MMOL/L (136-145) *H 164 MMOL/L (136-145) *H Potassium Level 3.0 MMOL/L (3.5-5.1) L 3.3 MMOL/L (3.5-5.1) L Chloride Level 128 MMOL/L (98-107) H 126 MMOL/L (98-107) H Carbon Dioxide Level 32 MMOL/L (21-32) 30 MMOL/L (21-32) Anion Gap 7 mmol/L (5-15) 9 mmol/L (5-15) Blood Urea Nitrogen 23 mg/dL (7-18) H 24 mg/dL (7-18) H Creatinine 1.0 MG/DL (0.55-1.30) 1.1 MG/DL (0.55-1.30) Estimat Glomerular Filtration Rate 56.4 mL/min (>60) 50.5 mL/min (>60) Glucose Level 138 MG/DL (74-106) H 170 MG/DL (74-106) H Calcium Level 9.2 MG/DL (8.5-10.1) 9.3 MG/DL (8.5-10.1) Total Bilirubin 0.3 MG/DL (0.2-1.0) 0.2 MG/DL (0.2-1.0) Aspartate Amino Transf (AST/SGOT) 47 U/L (15-37) H 48 U/L (15-37) H Alanine Aminotransferase (ALT/SGPT) 55 U/L (12-78) 46 U/L (12-78) Alkaline Phosphatase 141 U/L (46-116) H 154 U/L (46-116) H Total Protein 6.3 G/DL (6.4-8.2) L 6.5 G/DL (6.4-8.2) Albumin 1.3 G/DL (3.4-5.0) L 1.3 G/DL (3.4-5.0) L Globulin 5.0 g/dL 5.2 g/dL Albumin/Globulin Ratio 0.3 (1.0-2.7) L 0.2 (1.0-2.7) L Plan Problems: (1) Malnutrition Assessment & Plan: not eating enough TF started adv as tolerated bowel regimen worsening prognosis guarded DDAILY ESTIMATED NEEDS: Needs based on Wound, pulmonary / 56kg 25-35 kcals/kg 1155-8373 total kcals 1.25-1.8 g protein/kg 70-100 g total protein 25-30 mL/kg 3285-0330 total fluid mLs NUTRITION DIAGNOSIS: * Swallowing difficulty R/T dysphagia as evidenced by LOGISTICS COORDINATOR w/ rec for NPO, now on NGT feeds. * Increased kcal/prot/micronutrients needs R/T wound healing as evidenced by pt admitted w/ multiple wounds including full thickness wound @ sacrum, TPI wound @ L Gluteal cheek, and non-Blanchable erythema @ BL heels. CURRENT TF:Jevity 1.2 @30ml/hr ENTERAL NUTRITION RECOMMENDATIONS: JEVITY 1.2 goal of 55ml/hr x24 hrs to provide 1320ml, 1584 kcal, 73g pro, 1065ml free H2O - rec to INCREASE current TF as tolerated to goal of 55ml/hr to better meet est needs. - flush per MD, HOB over 30 degrees ADDITIONAL RECOMMENDATIONS: * Per SNF: HT=66" SJ=[id number] (03/07/20) * Wound healing: continue MVI, Vit C, and ZnSO4 * VIA NGT-> add TONI BID for wound care TF recs as above * Monitor lytes, replete as needed THIS 60 Y.O.M. WAS ADMITTED WITH ACUTE ISSUES - FEVER, HYPOXIC WITH LOW 02 SATS ON NON-REBREATHER, RESP RATE 18 BPM INITIALLY PER MEDICAL RECORD. PER RN, THE PATIENT HAD A RAPID RESPOSE THIS MORNING (DESAT TO 90S AND RAPID RESP RATE). H/O COPD, CARDIAC DZ, HYPOTHYROIDISM, HTN, ALLERGIC RHINITIS, SCHIZOPHRENIA (ON OLANZAPINE AT SNF), BASELINE NONVERBAL. PER POLST FULL TX BUT NO INFORMATION REGARDING TUBE FEEDING PREFERENCES. AT SNF ON A REGULAR DIET TEXTURE AND THIN LIQUIDS WITH PROSTAT SF DRINK WITH MEALS. NOW ON A REGULAR TEXTURE DIET AND THIN LIQUIDS BUT DID NOT TAKE ANY PO. PER RNLAURIE, THE PT UNABLE TO TAKE LARGE PILLS BUT APPEARED TO TOLERATE CRUSHED MEDS WITH APPLESAUCE W/O OVERT ASPIRATION. PATIENT SEEN WITH RTFUNMI. PER RT RESP RATE 22 BPM AND NOT ABLE TO ongoing unintelligible confabulations. Patient did request a sandwich, however, not appropriate for regular texture at this time. VITALS ON 2 L NASAL CANNULA: HR: 73; RR: 20; SP02: 95% Patient's oral hygiene is improving, ongoing poor speech intelligibility which appears to be more due to poor articulation precision/oral motor coordination versus 2/2 dry mouth. CXR on 03/14/20: Findings: Interim considerable improvement of previously demonstrated left lower lobe infiltrate. There is a residual disease in the retrocardiac region as well as generalized reticular interstitial opacities throughout the left mid and lower lung. There is questionably a 3 cm spiculated opacity projected over the apex. Minimal right mid and lower lung reticular opacities are also demonstrated. There is some right midlung atelectasis versus thickening of the minor fissure. The heart size is normal. The pleural spaces are clear Impression: Considerable improvement the persistence of previously demonstrated left mid and lower lung infiltrates, since prior study of 03/11/2020. LOGISTICS COORDINATOR plans to continue to f/u and monitor Patients readiness for PO trials for diet texture upgrade. RN aware of recommendations, plan, and aspiration precautions sign posted above Patients HOB. RECOMMENDATIONS: 1. Continue Moist Puree with [place] Thick Liquids Diet via 1 to 1 careful handfeeding while implementing posted aspiration precautions - RD recommendations appreciated for diet texture/type 2. Patient requires oral hygiene BID + lip moisturizer. (2) Decubitus skin ulcer Assessment & Plan: Pt presented on admission with multiple pressure injuries. Full thickness Pressure injury Sacrococcygeal area. (L)4cm x (W)2.5cm. Base of wound is fatou with scattered slough ,which was easily removed with gentle friction. Wound is now fatou with 25% soft necrosis at distal base of wound. Small amt sanguineous exudate noted.No odor noted. Periwound erythematous and denuded. Two additional Pressure Injuries noted to R gluteal cheek.(Proximal) Base of wound is purple and indurated(L)3cm x (W)1.5cm. Surrounding erythematous and denuded skin (Distal) R gluteus(L)1.4cm x (W)0.6cm. Base of wound is purple, indurated with surrounding erythematous and denuded skin. DTPI L Gluteal cheek (L)1.5cm x (W)1.3cm. Base of wound is indurated, purple with surrounding non-blanching erythema. Additional scattered areas that are maroon in colour noted to L gluteal cheek. Lateral L Heel boggy with non-blanching erythema with delineated margins. (L) 4cm x (W)4.5cm. Lateral R Heel Boggy with non-Blanchable erythema with delineated margins(L) 2.5cm x (W)2.5cm. Tx.Plan: Cleanse Sacrococcygeal area with saline. Apply TheraHoney , Apply Moisture Barrier Paste to Sacrum, R and L Buttocks. Cover entire Area with Optifoam drsgs. Change every 3 days and prn. Apply Moisture Barrier Paste to R and L Buttocks . Cover with Optifoam drsgs. Changee very 3 days and prn. Apply Cavilon Skin Barrier to R and L Trochanteric areas. Cover with Optifoam drsg. Change every 7 days and prn. Apply [place] Skin Barrier to R and L Heels. Cover each heel with Optifoam drsg. Change every 7 days and prn. Reposition at least every 2hours or as tolerated. Off-load heels with Pillow. APM/ERIK Mattress. (3) Pneumonia Assessment & Plan: Lungs: There is mild left lower lobe infiltrate consistent with pneumonia. Pleural space: Unremarkable. No pneumothorax. Heart: The heart size is at the upper limits of normal. Mediastinum: Unremarkable. Bones/joints: Unremarkable. IMPRESSION: There is mild left lower lobe infiltrate consistent with pneumonia. worsening on bipap now will monitor closely intubated now 03/21 wean vent Continue weaning. Will hopefully be extubated potentially. Gases noted. (4) COPD (chronic obstructive pulmonary disease) Assessment & Plan: On vent support weaning Potential extubation soon not able to extubate as not safe with current status possible withdraw care as no function possible brain (5) Fever Eddie Perez Apr 05, 2020 07:39
[2020-04-05] MEDS: Zinc Sulfate 220mg NG SCH (08:05)
[2020-04-05] MEDS: Lactulose 20gm/30ml UDC NG SCH ×3 (08:05→17:05)
[2020-04-05] MEDS: Pantoprazole Inj IVP SCH (08:05)
[2020-04-05] MEDS: Midodrine 10mg tab NG SCH ×3 (08:05→17:05)
[2020-04-05] MEDS: Multivitamins W/Minerals 15 ML UDC NG SCH (08:05)
[2020-04-05] MEDS: Ascorbic Acid 500mg tab NG SCH (08:05)
[2020-04-05] MEDS: Heparin 5000 units/ml inj SUBQ SCH ×2 (08:06→20:06)
--- NOTE | 2020-04-05 08:10 | NUR ---
NURSE NOTES: Seen by Dr. Ledesma and assessed patient. No new orders at this time.
--- NOTE | 2020-04-05 08:51 | Critical Care Progress Note ---
Assessment/Plan Assessment/Plan IMPRESSION: 1. COPD 2. Hypercapnia and hypoxemia. 3. Pneumonia,snf 4. Hypothyroidism. 5. History of allergies. 6. Severe protein-calorie malnutrition. 7. Mild leukocytosis. 8. acute respiratory failure/ failed extubation 9. pulmonary congestion 10. hypernatremia 11. ?brain care noted neuro still needed to confirm brain detah respiratory care as is on pressors reviewed changes; monitor secretions- discussed care Ventilatory support as is; recommend trach monitor for CO2 retention and congestion maintain meds DVT prophylaxis; supportive care as is off load aspiration precautions position change and off load oxygen therapy as is prognosis poor possible removal of life support if brain confirmed by neuro EEG with inactivity medications/laboratory data/nursing notes/ICU care reviewed in detail note reviewed and edited care discussed with RN and RT ICU time spent >40 minutes Critical Care - Subjective ROS Limited/Unobtainable: Yes Condition: critical EKG Rhythm: Sinus Rhythm I&O: Intake and Output 04/04/20 04/05/20 19:00 07:00 Intake Total 2104.4375 ml 1684 ml Output Total 1750 ml 2000 ml Balance 354.4375 ml -316 ml Free Water 30 ml 80 ml IV Total 2044.4375 ml 1604 ml Tube Feeding 30 ml 0 ml Output Urine Total 1750 ml 2000 ml Critical Care - Objective ET-Tube: 7.5 ET Position: 23 Last 24 Hour Vital Signs Date Time Temp Pulse Resp B/P (MAP) Pulse Ox O2 Delivery O2 Flow Rate FiO2 04/05/20 08:29 110/78 04/05/20 07:13 66 14 100 Mechanical Ventilator 40 70 14 100 04/05/20 07:00 65 14 111/77 (88) 100 04/05/20 06:00 96.1 66 14 114/74 (87) 100 04/05/20 06:00 114/74 04/05/20 05:30 66 14 110/74 (86) 100 04/05/20 05:00 67 14 109/78 (88) 100 04/05/20 05:00 109/78 04/05/20 04:00 Mechanical Ventilator 04/05/20 04:00 71 13 115/83 (94) 100 04/05/20 04:00 40 04/05/20 04:00 71 04/05/20 04:00 115/83 04/05/20 03:00 115/83 04/05/20 03:00 71 13 115/83 (94) 100 04/05/20 02:58 70 14 100 Mechanical Ventilator 40 70 14 100 04/05/20 02:30 72 14 101/71 (81) 100 04/05/20 02:00 114/79 04/05/20 02:00 67 14 114/79 (91) 100 04/05/20 01:30 68 14 110/76 (87) 100 04/05/20 01:00 110/76 04/05/20 01:00 69 14 101/68 (79) 100 04/05/20 00:00 69 04/05/20 00:00 132/86 04/05/20 00:00 97.1 69 14 132/86 (101) 100 04/05/20 00:00 Mechanical Ventilator 04/04/20 23:20 117/78 04/04/20 23:00 68 14 112/81 (91) 100 04/04/20 22:59 68 14 100 Mechanical Ventilator 40 68 14 100 04/04/20 22:30 68 14 103/76 (85) 100 04/04/20 22:00 68 14 108/74 (85) 100 04/04/20 21:30 68 14 115/80 (92) 100 04/04/20 21:00 68 14 109/78 (88) 100 04/04/20 20:30 68 14 107/76 (86) 100 04/04/20 20:15 69 14 110/80 (90) 100 04/04/20 20:00 Mechanical Ventilator 04/04/20 20:00 69 04/04/20 20:00 40 04/04/20 20:00 97.2 69 14 112/82 (92) 100 04/04/20 19:00 110/79 04/04/20 19:00 69 14 110/79 (89) 100 04/04/20 18:55 70 14 100 Mechanical Ventilator 40 70 14 100 04/04/20 18:30 70 14 100/75 (83) 100 04/04/20 18:00 70 14 104/74 (84) 99 04/04/20 18:00 104/74 04/04/20 17:45 91/73 04/04/20 17:30 76 14 89/68 (75) 99 04/04/20 17:30 102/72 04/04/20 17:15 89/68 04/04/20 17:00 71 14 86/57 (67) 100 04/04/20 17:00 86/57 04/04/20 16:45 78/58 04/04/20 16:30 71 14 78/58 (65) 99 04/04/20 16:30 69/44 04/04/20 16:15 130/62 04/04/20 16:09 132/94 04/04/20 16:00 97.0 73 14 132/94 (107) 100 04/04/20 16:00 40 04/04/20 16:00 72 04/04/20 16:00 142/87 04/04/20 16:00 Mechanical Ventilator 04/04/20 15:30 70 14 112/77 (89) 100 04/04/20 15:10 71 14 100 Mechanical Ventilator 40 70 14 100 04/04/20 15:00 113/78 04/04/20 15:00 70 14 113/78 (90) 100 04/04/20 14:30 70 14 118/84 (95) 100 04/04/20 14:00 71 14 123/85 (98) 100 04/04/20 14:00 123/85 04/04/20 13:30 72 14 112/76 (88) 100 04/04/20 13:00 72 14 119/78 (92) 98 04/04/20 13:00 119/78 04/04/20 12:30 72 14 107/78 (88) 100 04/04/20 12:00 Mechanical Ventilator 04/04/20 12:00 74 04/04/20 12:00 125/83 04/04/20 12:00 40 04/04/20 12:00 97.0 74 14 111/77 (88) 100 04/04/20 11:53 74 14 100 Mechanical Ventilator 40 74 14 100 04/04/20 11:30 74 14 112/79 (90) 100 04/04/20 11:00 76 14 110/74 (86) 100 04/04/20 11:00 106/80 04/04/20 10:30 77 14 105/76 (86) 100 04/04/20 10:00 78 14 112/79 (90) 100 04/04/20 10:00 118/80 04/04/20 09:54 40 7/1/20 09:45 112/79 04/04/20 09:30 76 14 108/69 (82) 100 04/04/20 09:30 108/69 04/04/20 09:15 88/63 04/04/20 09:00 40 04/04/20 09:00 81/56 04/04/20 09:00 75 14 88/63 (71) 100 Labs: Labs Test 04/03/20 13:00 04/04/20 09:47 04/05/20 04:22 Urine Color Pale yellow Urine Appearance Clear Urine pH 5 (4.5-8.0) Urine Specific [place] 1.005 (1.005-1.035) Urine Protein Negative (NEGATIVE) Urine Glucose (UA) Negative (NEGATIVE) Urine Ketones Negative (NEGATIVE) Urine Blood 1+ (NEGATIVE) Urine Nitrite Negative (NEGATIVE) Urine Bilirubin Negative (NEGATIVE) Urine Urobilinogen Normal MG/DL (0.0-1.0) Urine Leukocyte Esterase Negative (NEGATIVE) Urine RBC 0-2 /HPF (0 - 2) Urine WBC 0-2 /HPF (0 - 2) Urine Squamous Epithelial Cells None /LPF (NONE/OCC) Urine Bacteria Occasional /HPF (NONE) Urine Yeast Many /HPF (NONE) White Blood Count 18.0 K/UL (4.8-10.8) 14.5 K/UL (4.8-10.8) Red Blood Count 3.30 M/UL (4.20-5.40) 3.37 M/UL (4.20-5.40) Hemoglobin 10.2 G/DL (12.0-16.0) 10.4 G/DL (12.0-16.0) Hematocrit 33.2 % (37.0-47.0) 34.0 % (37.0-47.0) Mean Corpuscular Volume 101 FL (80-99) 101 FL (80-99) Mean Corpuscular Hemoglobin 30.9 PG (27.0-31.0) 31.0 PG (27.0-31.0) Mean Corpuscular Hemoglobin Concent 30.8 G/DL (32.0-36.0) 30.7 G/DL (32.0-36.0) Red Cell Distribution Width 15.3 % (11.6-14.8) 15.0 % (11.6-14.8) Platelet Count 311 K/UL (150-450) 279 K/UL (150-450) Mean Platelet Volume 7.6 FL (6.5-10.1) 8.0 FL (6.5-10.1) Neutrophils (%) (Auto) % (45.0-75.0) 79.5 % (45.0-75.0) Lymphocytes (%) (Auto) % (20.0-45.0) 14.1 % (20.0-45.0) Monocytes (%) (Auto) % (1.0-10.0) 2.0 % (1.0-10.0) Eosinophils (%) (Auto) % (0.0-3.0) 3.5 % (0.0-3.0) Basophils (%) (Auto) % (0.0-2.0) 0.9 % (0.0-2.0) Differential Total Cells Counted 100 Neutrophils % (Manual) 82 % (45-75) Lymphocytes % (Manual) 13 % (20-45) Monocytes % (Manual) 4 % (1-10) Eosinophils % (Manual) 1 % (0-3) Basophils % (Manual) 0 % (0-2) Band Neutrophils 0 % (0-8) Platelet Estimate Adequate Platelet Morphology Normal Hypochromasia 1+ Anisocytosis 1+ Macrocytosis 1+ Sodium Level 167 MMOL/L (136-145) 164 MMOL/L (136-145) Potassium Level 3.0 MMOL/L (3.5-5.1) 3.3 MMOL/L (3.5-5.1) Chloride Level 128 MMOL/L (98-107) 126 MMOL/L (98-107) Carbon Dioxide Level 32 MMOL/L (21-32) 30 MMOL/L (21-32) Anion Gap 7 mmol/L (5-15) 9 mmol/L (5-15) Blood Urea Nitrogen 23 mg/dL (7-18) 24 mg/dL (7-18) Creatinine 1.0 MG/DL (0.55-1.30) 1.1 MG/DL (0.55-1.30) Estimat Glomerular Filtration Rate 56.4 mL/min (>60) 50.5 mL/min (>60) Glucose Level 138 MG/DL (74-106) 170 MG/DL (74-106) Calcium Level 9.2 MG/DL (8.5-10.1) 9.3 MG/DL (8.5-10.1) Total Bilirubin 0.3 MG/DL (0.2-1.0) 0.2 MG/DL (0.2-1.0) Aspartate Amino Transf (AST/SGOT) 47 U/L (15-37) 48 U/L (15-37) Alanine Aminotransferase (ALT/SGPT) 55 U/L (12-78) 46 U/L (12-78) Alkaline Phosphatase 141 U/L (46-116) 154 U/L (46-116) Total Protein 6.3 G/DL (6.4-8.2) 6.5 G/DL (6.4-8.2) Albumin 1.3 G/DL (3.4-5.0) 1.3 G/DL (3.4-5.0) Globulin 5.0 g/dL 5.2 g/dL Albumin/Globulin Ratio 0.3 (1.0-2.7) 0.2 (1.0-2.7) Objective: GENERAL: An ill-appearing female. NAD on Vent NECK: Supple. No adenopathy. LUNGS: Coarse breath sounds. Moderate air entry. ETT in place; no rhonchi or wheeze CARDIAC: S1, S2. Regular rate and rhythm without murmur. ABDOMEN: Soft, nontender, nondistended. feeding tube EXTREMITIES: No cyanosis, clubbing, or edema. obtunded on the vent reviewed and edited Micro: Microbiology Date/Time Source Procedure Growth Status 04/03/20 13:00 Blood Blood Culture - Preliminary NO GROWTH AFTER 24 HOURS Resulted 04/03/20 15:00 Sputum Gram Stain - Final Resulted 04/03/20 15:00 Sputum Sputum Culture Pending Resulted 04/03/20 13:00 Urine,Clean Catch Urine Culture - Preliminary Yeast Species Resulted Javier Blake MD Apr 05, 2020 08:51
[2020-04-05] MEDS: Phenylephrine 50 MG in D5W 245 ML IV SCH (11:47)
[2020-04-05] MEDS: Cefepime HCl 2 GM in D5W 55 ML IVPB SCH ×2 (11:47→23:10)
--- NOTE | 2020-04-05 12:00 | NUR ---
NURSE NOTES: BP stable. Titrated down levophed to 14mcg/min. Will continue to monitor closely.
--- NOTE | 2020-04-05 12:43 | NUR ---
*-* INSURANCE *-* UPDATED CLINICALS AND REVIEWS HAVE BEEN FAXED TO; [facility] F: [phone] REF #[id number]
--- NOTE | 2020-04-05 13:02 | Infectious Diseases Prog Note ---
Assessment/Plan Assessment/Plan A: 1. Klebsiella Pneumonia, COVID-19 test is negative x2. 2. Hypothyroidism. 3. COPD. 4. Schizophrenia. 5. Leukocytosis, improving. 6. 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 CP arrest 9. Anoxic encephalopathy, ? brain PLAN: 1. continue Cefepime & Vancomycin 2. Case was d/w RN 3. Poor prognosis, waiting for neurologic evaluation Subjective ROS Limited/Unobtainable: Yes Allergies: Coded Allergies: PENICILLINS (Verified Allergy, Unknown, 03/11/20) Objective Last 24 Hour Vital Signs Date Time Temp Pulse Resp B/P (MAP) Pulse Ox O2 Delivery O2 Flow Rate FiO2 04/05/20 12:00 Mechanical Ventilator 04/05/20 12:00 40 04/05/20 12:00 64 04/05/20 12:00 65 14 107/78 (88) 100 04/05/20 11:47 65 122/79 04/05/20 11:31 65 14 100 Mechanical Ventilator 40 65 14 100 04/05/20 11:30 64 14 118/78 (91) 100 04/05/20 11:00 65 14 111/82 (92) 100 04/05/20 11:00 111/82 04/05/20 10:30 65 14 115/81 (92) 100 04/05/20 10:00 66 14 115/83 (94) 100 04/05/20 10:00 114/81 04/05/20 09:30 66 14 115/82 (93) 100 04/05/20 09:00 66 14 111/81 (91) 100 04/05/20 09:00 111/81 04/05/20 08:30 66 14 107/75 (86) 100 04/05/20 08:29 110/78 04/05/20 08:00 66 04/05/20 08:00 66 14 107/74 (85) 100 04/05/20 08:00 107/74 04/05/20 08:00 Mechanical Ventilator 04/05/20 08:00 40 04/05/20 07:30 64 14 112/80 (91) 100 04/05/20 07:13 66 14 100 Mechanical Ventilator 40 70 14 100 04/05/20 07:00 111/77 04/05/20 07:00 65 14 111/77 (88) 100 04/05/20 06:00 96.1 66 14 114/74 (87) 100 04/05/20 06:00 114/74 04/05/20 05:30 66 14 110/74 (86) 100 04/05/20 05:00 67 14 109/78 (88) 100 04/05/20 05:00 109/78 04/05/20 04:00 Mechanical Ventilator 04/05/20 04:00 71 13 115/83 (94) 100 04/05/20 04:00 40 04/05/20 04:00 71 04/05/20 04:00 115/83 04/05/20 03:00 115/83 04/05/20 03:00 71 13 115/83 (94) 100 04/05/20 02:58 70 14 100 Mechanical Ventilator 40 70 14 100 04/05/20 02:30 72 14 101/71 (81) 100 04/05/20 02:00 114/79 04/05/20 02:00 67 14 114/79 (91) 100 04/05/20 01:30 68 14 110/76 (87) 100 04/05/20 01:00 110/76 04/05/20 01:00 69 14 101/68 (79) 100 04/05/20 00:00 69 04/05/20 00:00 132/86 04/05/20 00:00 97.1 69 14 132/86 (101) 100 04/05/20 00:00 Mechanical Ventilator 04/04/20 23:20 117/78 04/04/20 23:00 68 14 112/81 (91) 100 04/04/20 22:59 68 14 100 Mechanical Ventilator 40 68 14 100 04/04/20 22:30 68 14 103/76 (85) 100 04/04/20 22:00 68 14 108/74 (85) 100 04/04/20 21:30 68 14 115/80 (92) 100 04/04/20 21:00 68 14 109/78 (88) 100 04/04/20 20:30 68 14 107/76 (86) 100 04/04/20 20:15 69 14 110/80 (90) 100 04/04/20 20:00 Mechanical Ventilator 04/04/20 20:00 69 04/04/20 20:00 40 04/04/20 20:00 97.2 69 14 112/82 (92) 100 04/04/20 19:00 110/79 04/04/20 19:00 69 14 110/79 (89) 100 04/04/20 18:55 70 14 100 Mechanical Ventilator 40 70 14 100 04/04/20 18:30 70 14 100/75 (83) 100 04/04/20 18:00 70 14 104/74 (84) 99 04/04/20 18:00 104/74 04/04/20 17:45 91/73 04/04/20 17:30 76 14 89/68 (75) 99 04/04/20 17:30 102/72 04/04/20 17:15 89/68 04/04/20 17:00 71 14 86/57 (67) 100 04/04/20 17:00 86/57 04/04/20 16:45 78/58 04/04/20 16:30 71 14 78/58 (65) 99 04/04/20 16:30 69/44 04/04/20 16:15 130/62 04/04/20 16:09 132/94 04/04/20 16:00 97.0 73 14 132/94 (107) 100 04/04/20 16:00 40 04/04/20 16:00 72 04/04/20 16:00 142/87 04/04/20 16:00 Mechanical Ventilator 04/04/20 15:30 70 14 112/77 (89) 100 04/04/20 15:10 71 14 100 Mechanical Ventilator 40 70 14 100 04/04/20 15:00 113/78 04/04/20 15:00 70 14 113/78 (90) 100 04/04/20 14:30 70 14 118/84 (95) 100 04/04/20 14:00 71 14 123/85 (98) 100 04/04/20 14:00 123/85 04/04/20 13:30 72 14 112/76 (88) 100 04/04/20 13:00 72 14 119/78 (92) 98 04/04/20 13:00 119/78 Height (Feet): 5 Height (Inches): 5.00 Weight (Pounds): 131 HEENT: other - orally intubated Respiratory/Chest: lungs clear, other - on ventilator Cardiovascular: normal rate, other - PICC line Abdomen: soft, non tender Neurologic/Psychiatric: unresponsiveness, other - fix dilated pupils Microbiology Date/Time Source Procedure Growth Status 04/03/20 13:00 Blood Blood Culture - Preliminary NO GROWTH AFTER 24 HOURS Resulted 04/03/20 15:00 Sputum Gram Stain - Final Resulted 04/03/20 15:00 Sputum Sputum Culture - Preliminary NORMAL UPPER RESPIRATORY ALEXANDRO AT 24 ... Resulted 04/03/20 13:00 Urine,Clean Catch Urine Culture - Preliminary Yeast Species Resulted Laboratory Tests Test 04/05/20 04:22 White Blood Count 14.5 K/UL (4.8-10.8) H Red Blood Count 3.37 M/UL (4.20-5.40) L Hemoglobin 10.4 G/DL (12.0-16.0) L Hematocrit 34.0 % (37.0-47.0) L Mean Corpuscular Volume 101 FL (80-99) H Mean Corpuscular Hemoglobin 31.0 PG (27.0-31.0) Mean Corpuscular Hemoglobin Concent 30.7 G/DL (32.0-36.0) L Red Cell Distribution Width 15.0 % (11.6-14.8) H Platelet Count 279 K/UL (150-450) Mean Platelet Volume 8.0 FL (6.5-10.1) Neutrophils (%) (Auto) 79.5 % (45.0-75.0) H Lymphocytes (%) (Auto) 14.1 % (20.0-45.0) L Monocytes (%) (Auto) 2.0 % (1.0-10.0) Eosinophils (%) (Auto) 3.5 % (0.0-3.0) H Basophils (%) (Auto) 0.9 % (0.0-2.0) Sodium Level 164 MMOL/L (136-145) *H Potassium Level 3.3 MMOL/L (3.5-5.1) L Chloride Level 126 MMOL/L (98-107) H Carbon Dioxide Level 30 MMOL/L (21-32) Anion Gap 9 mmol/L (5-15) Blood Urea Nitrogen 24 mg/dL (7-18) H Creatinine 1.1 MG/DL (0.55-1.30) Estimat Glomerular Filtration Rate 50.5 mL/min (>60) Glucose Level 170 MG/DL (74-106) H Calcium Level 9.3 MG/DL (8.5-10.1) Total Bilirubin 0.2 MG/DL (0.2-1.0) Aspartate Amino Transf (AST/SGOT) 48 U/L (15-37) H Alanine Aminotransferase (ALT/SGPT) 46 U/L (12-78) Alkaline Phosphatase 154 U/L (46-116) H Total Protein 6.5 G/DL (6.4-8.2) Albumin 1.3 G/DL (3.4-5.0) L Globulin 5.2 g/dL Albumin/Globulin Ratio 0.2 (1.0-2.7) L Current Medications Medications (Trade) Dose Ordered Sig/Ranjeet Route PRN Reason Start Time Stop Time Status Last Admin Dose Admin Acetaminophen (Tylenol) 650 mg Q4H PRN NG Mild Pain (1-3)/Fever > 100.5 03/22/20 15:30 04/10/20 19:29 Albuterol Sulfate (Proventil MDI) 2 puff Q4HRT INH 03/18/20 15:00 06/13/20 02:59 04/05/20 11:33 Ascorbic Acid (Vitamin C) 500 mg DAILY NG 03/23/20 09:00 04/11/20 08:59 04/05/20 08:05 Atropine Sulfate (Atropine) 1 mg Q1H PRN IVP HR <40BPM 03/18/20 13:30 04/17/20 13:29 03/31/20 14:58 Cefepime HCl 2 gm/ Dextrose 55 ml @ 110 mls/hr Q12H IVPB 04/02/20 12:00 04/09/20 11:59 04/05/20 11:47 Chlorhexidine Gluconate (Mary-Hex 2%) 1 applic DAILY@2000 TOPIC 03/21/20 20:00 06/19/20 19:59 04/04/20 19:27 Clonidine HCl (Catapres Tab) 0.1 mg Q4H PRN NG For High Blood Pressure 03/31/20 16:45 06/29/20 16:44 03/31/20 16:45 Dextrose 1,000 ml @ 125 mls/hr Q8H IV 04/04/20 11:30 05/04/20 11:29 04/05/20 11:18 Heparin Sodium (Porcine) (Heparin 5000 units/ml) 5,000 units EVERY 12 HOURS SUBQ 03/18/20 21:00 04/25/20 20:59 04/05/20 08:06 Lactulose (Cephulac) 30 gm THREE TIMES A DAY NG 03/22/20 18:00 04/18/20 09:14 04/05/20 08:05 Levothyroxine Sodium (Synthroid) 150 mcg DAILY@0630 ORAL 03/31/20 06:30 04/30/20 06:29 04/05/20 06:15 Loratadine (Claritin 10mg) 10 mg DAILY ORAL 03/23/20 09:00 04/11/20 08:59 04/05/20 08:05 Magnesium Hydroxide (Mom) 30 ml HSPRN PRN NG Constipation 03/22/20 15:30 04/17/20 13:59 04/03/20 17:15 Midodrine (Pro-Amatine) 10 mg THREE TIMES A DAY NG 03/24/20 13:00 06/21/20 08:59 04/05/20 08:05 Multivitamins (Multivitamins W/ Minerals 15ml Liquid) 15 ml DAILY NG 03/23/20 09:00 04/11/20 08:59 04/05/20 08:05 Norepinephrine Bitartrate 8 mg/ Dextrose 250 ml @ 0 mls/hr Q24H IV 04/01/20 13:30 05/01/20 13:29 04/05/20 08:29 Pantoprazole (Protonix) 40 mg DAILY IVP 03/23/20 09:00 04/22/20 08:59 04/05/20 08:05 Phenylephrine HCl 50 mg/Dextrose 250 ml @ 0 mls/hr Q24H IV 04/01/20 12:00 05/01/20 11:59 04/03/20 23:36 Vancomycin HCl (Vanco pharmacy to dose) 1 ea DAILY PRN MISC Per rx protocol 04/03/20 11:00 05/03/20 10:59 Vancomycin HCl 1 gm/Sodium Chloride 275 ml @ 183.708 mls/hr Q12H IVPB 04/03/20 14:00 04/08/20 13:59 04/05/20 02:01 Zinc Sulfate (Zinc Sulfate) 220 mg DAILY NG 03/23/20 09:00 06/10/20 08:59 04/05/20 08:05 Domingo Polo MD Apr 05, 2020 13:02
--- NOTE | 2020-04-05 14:00 | NUR ---
NURSE NOTES: Titrated down levophed to 12mcg/min. Will continue to monitor.
--- NOTE | 2020-04-05 15:07 | General Progress Note ---
Assessment/Plan Problem List: (1) COPD (chronic obstructive pulmonary disease) ICD Codes: J44.9 - Chronic obstructive pulmonary disease, unspecified SNOMED: 18949549 Qualifiers: Qualified Codes: J44.9 - Chronic obstructive pulmonary disease, unspecified (2) Pneumonia ICD Codes: J18.9 - Pneumonia, unspecified organism SNOMED: 258788300 Qualifiers: Qualified Codes: J18.9 - Pneumonia, unspecified organism (3) Fever ICD Codes: R50.9 - Fever, unspecified SNOMED: 512767795 Status: stable, progressing Assessment/Plan: vent support resp rx and suctioning iv abx per id follow up labs ivf oral synthroid tube feeds monitor labs skin care turn q2 neuro eval to confirm eeg terminal extubation if brain confirmed tomorrow critical and guarded Subjective ROS Limited/Unobtainable: Yes Constitutional: Reports: malaise, weakness HEENT: Reports: no symptoms Cardiovascular: Reports: no symptoms Respiratory: Reports: no symptoms Gastrointestinal/Abdominal: Reports: difficulty swallowing Genitourinary: Reports: no symptoms Neurologic/Psychiatric: Reports: pre-existing deficit Endocrine: Reports: no symptoms Hematologic/Lymphatic: Reports: no symptoms Allergies: Coded Allergies: PENICILLINS (Verified Allergy, Unknown, 03/11/20) All Systems: reviewed and negative except above Subjective events noted. s/p code blue. unresponsive. no activity on eeg unresponsive. no gag. fully supported on vent Objective Last 24 Hour Vital Signs Date Time Temp Pulse Resp B/P (MAP) Pulse Ox O2 Delivery O2 Flow Rate FiO2 04/05/20 14:00 110/73 04/05/20 14:00 62 14 110/73 (85) 100 04/05/20 13:30 62 14 112/77 (89) 100 04/05/20 13:00 112/78 04/05/20 13:00 64 14 107/77 (87) 100 04/05/20 12:45 113/82 04/05/20 12:30 111/76 04/05/20 12:15 111/76 04/05/20 12:00 Mechanical Ventilator 04/05/20 12:00 107/78 04/05/20 12:00 40 04/05/20 12:00 64 04/05/20 12:00 65 14 107/78 (88) 100 04/05/20 11:47 65 122/79 04/05/20 11:31 65 14 100 Mechanical Ventilator 40 65 14 100 04/05/20 11:30 64 14 118/78 (91) 100 04/05/20 11:00 65 14 111/82 (92) 100 04/05/20 11:00 111/82 04/05/20 10:30 65 14 115/81 (92) 100 04/05/20 10:00 66 14 115/83 (94) 100 04/05/20 10:00 114/81 04/05/20 09:30 66 14 115/82 (93) 100 04/05/20 09:00 66 14 111/81 (91) 100 04/05/20 09:00 111/81 04/05/20 08:30 66 14 107/75 (86) 100 04/05/20 08:29 110/78 04/05/20 08:00 66 04/05/20 08:00 66 14 107/74 (85) 100 04/05/20 08:00 107/74 04/05/20 08:00 Mechanical Ventilator 04/05/20 08:00 40 04/05/20 07:30 64 14 112/80 (91) 100 04/05/20 07:13 66 14 100 Mechanical Ventilator 40 70 14 100 04/05/20 07:00 111/77 04/05/20 07:00 65 14 111/77 (88) 100 04/05/20 06:00 96.1 66 14 114/74 (87) 100 04/05/20 06:00 114/74 04/05/20 05:30 66 14 110/74 (86) 100 04/05/20 05:00 67 14 109/78 (88) 100 04/05/20 05:00 109/78 04/05/20 04:00 Mechanical Ventilator 04/05/20 04:00 71 13 115/83 (94) 100 04/05/20 04:00 40 04/05/20 04:00 71 04/05/20 04:00 115/83 04/05/20 03:00 115/83 04/05/20 03:00 71 13 115/83 (94) 100 04/05/20 02:58 70 14 100 Mechanical Ventilator 40 70 14 100 04/05/20 02:30 72 14 101/71 (81) 100 04/05/20 02:00 114/79 7/2/20 02:00 67 14 114/79 (91) 100 04/05/20 01:30 68 14 110/76 (87) 100 04/05/20 01:00 110/76 04/05/20 01:00 69 14 101/68 (79) 100 04/05/20 00:00 69 04/05/20 00:00 132/86 04/05/20 00:00 97.1 69 14 132/86 (101) 100 04/05/20 00:00 Mechanical Ventilator 04/04/20 23:20 117/78 04/04/20 23:00 68 14 112/81 (91) 100 04/04/20 22:59 68 14 100 Mechanical Ventilator 40 68 14 100 04/04/20 22:30 68 14 103/76 (85) 100 04/04/20 22:00 68 14 108/74 (85) 100 04/04/20 21:30 68 14 115/80 (92) 100 04/04/20 21:00 68 14 109/78 (88) 100 04/04/20 20:30 68 14 107/76 (86) 100 04/04/20 20:15 69 14 110/80 (90) 100 04/04/20 20:00 Mechanical Ventilator 04/04/20 20:00 69 04/04/20 20:00 40 04/04/20 20:00 97.2 69 14 112/82 (92) 100 04/04/20 19:00 110/79 04/04/20 19:00 69 14 110/79 (89) 100 04/04/20 18:55 70 14 100 Mechanical Ventilator 40 70 14 100 04/04/20 18:30 70 14 100/75 (83) 100 04/04/20 18:00 70 14 104/74 (84) 99 04/04/20 18:00 104/74 04/04/20 17:45 91/73 04/04/20 17:30 76 14 89/68 (75) 99 04/04/20 17:30 102/72 04/04/20 17:15 89/68 04/04/20 17:00 71 14 86/57 (67) 100 04/04/20 17:00 86/57 04/04/20 16:45 78/58 04/04/20 16:30 71 14 78/58 (65) 99 04/04/20 16:30 69/44 04/04/20 16:15 130/62 04/04/20 16:09 132/94 04/04/20 16:00 97.0 73 14 132/94 (107) 100 04/04/20 16:00 40 04/04/20 16:00 72 04/04/20 16:00 142/87 04/04/20 16:00 Mechanical Ventilator 04/04/20 15:30 70 14 112/77 (89) 100 04/04/20 15:10 71 14 100 Mechanical Ventilator 40 70 14 100 Intake and Output 04/04/20 04/05/20 19:00 07:00 Intake Total 2104.4375 ml 1839 ml Output Total 1750 ml 2125 ml Balance 354.4375 ml -286 ml Free Water 30 ml 80 ml IV Total 2044.4375 ml 1759 ml Tube Feeding 30 ml 0 ml Output Urine Total 1750 ml 2125 ml Laboratory Tests 04/05/20 04:22: White Blood Count 14.5H, Red Blood Count 3.37L, Hemoglobin 10.4L, Hematocrit 34.0L, Mean Corpuscular Volume 101H, Mean Corpuscular Hemoglobin 31.0, Mean Corpuscular Hemoglobin Concent 30.7L, Red Cell Distribution Width 15.0H, Platelet Count 279, Mean Platelet Volume 8.0, Neutrophils (%) (Auto) 79.5H, Lymphocytes (%) (Auto) 14.1L, Monocytes (%) (Auto) 2.0, Eosinophils (%) (Auto) 3.5H, Basophils (%) (Auto) 0.9, Sodium Level 164*H, Potassium Level 3.3L, Chloride Level 126H, Carbon Dioxide Level 30, Anion Gap 9, Blood Urea Nitrogen 24H, Creatinine 1.1, Estimat Glomerular Filtration Rate 50.5, Glucose Level 170H , Calcium Level 9.3, Total Bilirubin 0.2, Aspartate Amino Transf (AST/SGOT) 48H , Alanine Aminotransferase (ALT/SGPT) 46, Alkaline Phosphatase 154H, Total Protein 6.5, Albumin 1.3L, Globulin 5.2, Albumin/Globulin Ratio 0.2L 04/05/20 13:05: Vancomycin Level Trough 18.1H Height (Feet): 5 Height (Inches): 5.00 Weight (Pounds): 131 Objective General Appearance: WD/WN, unresponsive intubated Neck: non-tender Cardiovascular: normal rate, regular rhythm Respiratory/Chest: chest wall non-tender, lungs clear, normal breath sounds Abdomen: normal bowel sounds, non tender, soft, no organomegaly Edema: no edema noted Arm (L), no edema noted Arm (R), no edema noted Leg (L), no edema noted Leg (R), no edema noted Pedal (L), no edema noted Pedal (R), no edema noted Generalized Neurologic: unresponsive Isaak Ledesma MD Apr 05, 2020 15:07
--- NOTE | 2020-04-05 15:22 | NUR ---
CASE MANAGEMENT:REVIEW SI;MILANA. ACUTE RESPIRATORY FAILURE~ORALLY INTUBATED. 96.1 61 14 107/77 100% MECH VENT AC 14 TV 500 PEEP 10 FIO2 @ 100% WBC 14.5 NA 164 K+ 3.3 BUN 24 AST 48 ALB 1.3 IS;IVF D5 @ 125 ML/HR VANCOMYCIN IV Q12 CEFEPIME IV Q12 LEVOPHED IV PHENYLEPHRINE IV MIDODRINE NGT TID LACTULOSE NGT TID PROTONIX IV HEPARIN SUBQ Q12 ICU STATUS DCP;FROM [facility] PLAN; TERMINAL EXTUBATION IF BRAIN CONFIRMED NEURO EVAL TO CONFIRM EEG CONT IVF
--- NOTE | 2020-04-05 15:53 | NUR ---
NURSE NOTES: Informed Dr. Ledesma that patient's potassium level is 3.3 today. KCL 40meq NG x1 ordered.
--- NOTE | 2020-04-05 16:55 | NUR ---
NURSE NOTES: Bed bath given. Kept dry, clean and comfortable. Will continue plan of care.
--- NOTE | 2020-04-05 18:58 | NUR ---
HAND-OFF: Report given to SHARATH Choi. NGT residual noted 60ml. Held feeding. Endorsed plan of care.
--- NOTE | 2020-04-05 19:18 | NUR ---
NURSE NOTES: Received report from SHARATH Tapia. Pt is non-responsive ETT 7.5, 23 cm at Lip. VENT Setting: AC 14, VT 500, Fi02 40%, Peep 10. Code changed from FUll to DNR Pt is NPO and check residual with AMRN 60mL noted Levophed 12mcg running Secretion is thin and moderate Afebrile and VSS Will continue to monitor
[2020-04-05] MEDS: Dyna-Hex 2% Top Sol 2oz TOPIC SCH (19:47)
--- NOTE | 2020-04-05 21:00 | NUR ---
NURSE NOTES: BP down to 49/31 Levophed increased to 20mcg with ship's pilot Asymptomatic and Afebrile Notify to pharmacy to order one another bag Will continue to monitor
--- NOTE | 2020-04-05 21:29 | General Progress Note ---
Assessment/Plan Status: stable, progressing Assessment/Plan: Assessment - Resp failure - dysphagia - COPD - Anemia - leukocytosis - hypernatremia, improved - sepsis - hypothyroid - poor prognosis Recommendations - pulmonary f/u - Tube feeds - D5W - elevate HOB - follow labs and exam - abx - PEG placement on hold Subjective Allergies: Coded Allergies: PENICILLINS (Verified Allergy, Unknown, 03/11/20) Subjective Above noted seen in ICU on vent labs noted Objective Last 24 Hour Vital Signs Date Time Temp Pulse Resp B/P (MAP) Pulse Ox O2 Delivery O2 Flow Rate FiO2 04/05/20 19:41 59 14 100 Mechanical Ventilator 40 60 14 100 04/05/20 19:00 58 14 113/73 (86) 99 04/05/20 19:00 113/73 04/05/20 18:30 58 14 109/72 (84) 99 04/05/20 18:00 129/79 04/05/20 18:00 61 14 129/79 (96) 100 04/05/20 17:48 102/74 04/05/20 17:30 63 14 102/74 (83) 99 04/05/20 17:15 164/98 04/05/20 17:00 72/54 04/05/20 17:00 64 14 143/91 (108) 100 04/05/20 16:30 60 14 99/72 (81) 100 04/05/20 16:00 Mechanical Ventilator 04/05/20 16:00 96.1 61 14 114/81 (92) 100 04/05/20 16:00 61 14 114/81 (92) 100 04/05/20 16:00 60 04/05/20 16:00 100/70 04/05/20 16:00 40 04/05/20 15:30 62 14 100/70 (80) 100 04/05/20 15:10 61 14 100 Mechanical Ventilator 40 61 14 100 04/05/20 15:00 119/80 04/05/20 15:00 61 14 119/80 (93) 100 04/05/20 14:30 62 14 114/81 (92) 100 04/05/20 14:00 110/73 04/05/20 14:00 62 14 110/73 (85) 100 04/05/20 13:30 62 14 112/77 (89) 100 04/05/20 13:00 112/78 7/2/20 13:00 64 14 107/77 (87) 100 04/05/20 12:45 113/82 04/05/20 12:30 111/76 04/05/20 12:15 111/76 04/05/20 12:00 Mechanical Ventilator 04/05/20 12:00 107/78 04/05/20 12:00 40 04/05/20 12:00 64 04/05/20 12:00 65 14 107/78 (88) 100 04/05/20 11:47 65 122/79 04/05/20 11:31 65 14 100 Mechanical Ventilator 40 65 14 100 04/05/20 11:30 64 14 118/78 (91) 100 04/05/20 11:00 65 14 111/82 (92) 100 04/05/20 11:00 111/82 04/05/20 10:30 65 14 115/81 (92) 100 04/05/20 10:00 66 14 115/83 (94) 100 04/05/20 10:00 114/81 04/05/20 09:30 66 14 115/82 (93) 100 04/05/20 09:00 66 14 111/81 (91) 100 04/05/20 09:00 111/81 04/05/20 08:30 66 14 107/75 (86) 100 04/05/20 08:29 110/78 04/05/20 08:00 66 04/05/20 08:00 66 14 107/74 (85) 100 04/05/20 08:00 107/74 04/05/20 08:00 Mechanical Ventilator 04/05/20 08:00 40 04/05/20 07:30 64 14 112/80 (91) 100 04/05/20 07:13 66 14 100 Mechanical Ventilator 40 70 14 100 04/05/20 07:00 111/77 04/05/20 07:00 65 14 111/77 (88) 100 04/05/20 06:00 96.1 66 14 114/74 (87) 100 04/05/20 06:00 114/74 04/05/20 05:30 66 14 110/74 (86) 100 04/05/20 05:00 67 14 109/78 (88) 100 04/05/20 05:00 109/78 04/05/20 04:00 Mechanical Ventilator 04/05/20 04:00 71 13 115/83 (94) 100 04/05/20 04:00 40 04/05/20 04:00 71 04/05/20 04:00 115/83 04/05/20 03:00 115/83 04/05/20 03:00 71 13 115/83 (94) 100 04/05/20 02:58 70 14 100 Mechanical Ventilator 40 70 14 100 04/05/20 02:30 72 14 101/71 (81) 100 04/05/20 02:00 114/79 04/05/20 02:00 67 14 114/79 (91) 100 04/05/20 01:30 68 14 110/76 (87) 100 04/05/20 01:00 110/76 04/05/20 01:00 69 14 101/68 (79) 100 04/05/20 00:00 69 04/05/20 00:00 132/86 04/05/20 00:00 97.1 69 14 132/86 (101) 100 04/05/20 00:00 Mechanical Ventilator 04/04/20 23:20 117/78 04/04/20 23:00 68 14 112/81 (91) 100 04/04/20 22:59 68 14 100 Mechanical Ventilator 40 68 14 100 04/04/20 22:30 68 14 103/76 (85) 100 04/04/20 22:00 68 14 108/74 (85) 100 04/04/20 21:30 68 14 115/80 (92) 100 Intake and Output 04/04/20 04/05/20 19:00 07:00 Intake Total 2104.4375 ml 1839 ml Output Total 1750 ml 2125 ml Balance 354.4375 ml -286 ml Free Water 30 ml 80 ml IV Total 2044.4375 ml 1759 ml Tube Feeding 30 ml 0 ml Output Urine Total 1750 ml 2125 ml Laboratory Tests 04/05/20 04:22: White Blood Count 14.5H, Red Blood Count 3.37L, Hemoglobin 10.4L, Hematocrit 34.0L, Mean Corpuscular Volume 101H, Mean Corpuscular Hemoglobin 31.0, Mean Corpuscular Hemoglobin Concent 30.7L, Red Cell Distribution Width 15.0H, Platelet Count 279, Mean Platelet Volume 8.0, Neutrophils (%) (Auto) 79.5H, Lymphocytes (%) (Auto) 14.1L, Monocytes (%) (Auto) 2.0, Eosinophils (%) (Auto) 3.5H, Basophils (%) (Auto) 0.9, Sodium Level 164*H, Potassium Level 3.3L, Chloride Level 126H, Carbon Dioxide Level 30, Anion Gap 9, Blood Urea Nitrogen 24H, Creatinine 1.1, Estimat Glomerular Filtration Rate 50.5, Glucose Level 170H , Calcium Level 9.3, Total Bilirubin 0.2, Aspartate Amino Transf (AST/SGOT) 48H , Alanine Aminotransferase (ALT/SGPT) 46, Alkaline Phosphatase 154H, Total Protein 6.5, Albumin 1.3L, Globulin 5.2, Albumin/Globulin Ratio 0.2L 04/05/20 13:05: Vancomycin Level Trough 18.1H Height (Feet): 5 Height (Inches): 5.00 Weight (Pounds): 131 Objective Thin WW NCAT (+) ETT supple coarse BS RR abd soft NT ND no edema Douglas Tucker MD Apr 05, 2020 21:29
--- NOTE | 2020-04-05 23:00 | NUR ---
NURSE NOTES: Pt remains non-responsive IV sites are CDI Repositioned Oral care provided No acute distress noted Afebrile and BP is stable, SR on teletypesetter monitor Will continue to monitor
[2020-04-06] VITALS (46 sets, daily range): BP systolic 83–127; BP diastolic 53–92
--- NOTE | 2020-04-06 01:10 | NUR ---
NURSE NOTES: Am care given Patient remains non-responsive IV sites are CDI Repositioned Oral care provided Sacrum stage 4, Calazime and forms are applied No acute distress noted Afebrile and VSS Will continue to monitor
[2020-04-06] MEDS: Albuterol 90mcg Inhaler 8gm INH SCH ×6 (02:47→22:43)
[2020-04-06] MEDS: Vancomycin 1 GM in NS 275 ML IVPB SCH ×2 (02:51→14:06)
--- NOTE | 2020-04-06 03:49 | NUR ---
NURSE NOTES: BP down to 86/60 Levophed increased to 24mcgs. Notified to professional sports scout Afebrile and VDD Repositioned Suction and Oral care provided
--- NOTE | 2020-04-06 05:00 | NUR ---
BP down to 86/62 Levophed increased to 26mcgs. Notified to behavior analyst Afebrile and VSS Repositioned Suction and Oral care provided
[2020-04-06 05:54] LABS: BASOPHILS % (AUTO) 0.7 % (0.0-2.0); EOSINOPHILS % (AUTO) 3.6 % (0.0-3.0); HEMATOCRIT 34.2 % (37.0-47.0); HEMOGLOBIN 10.4 G/DL (12.0-16.0); LYMPHOCYTES % (AUTO) 19.5 % (20.0-45.0); MEAN CORPUSCULAR VOLUME 101 FL (80-99); MONOCYTES % (AUTO) 2.9 % (1.0-10.0); NEUTROPHILS % (AUTO) 73.4 % (45.0-75.0); PLATELET COUNT 243 K/UL (150-450); RED CELL DISTRIBUTION WIDTH 14.9 % (11.6-14.8); WHITE BLOOD COUNT 12.3 K/UL (4.8-10.8)
[2020-04-06 06:05] LABS: ANION GAP 8 mmol/L (5-15); BLOOD UREA NITROGEN 25 mg/dL (7-18); CALCIUM 9.6 MG/DL (8.5-10.1); CARBON DIOXIDE 28 MMOL/L (21-32); CHLORIDE 118 MMOL/L (98-107); CREATININE 1.1 MG/DL (0.55-1.30); POTASSIUM 3.3 MMOL/L (3.5-5.1); SODIUM 154 MMOL/L (136-145)
--- NOTE | 2020-04-06 07:00 | NUR ---
NURSE NOTES: BP down to 88/63. Levophed increased to 27mcgs. Pt is asymptomatic
--- NOTE | 2020-04-06 07:27 | NUR ---
NURSE NOTES: Received report from Steph Galvan RN. Observed patient in bed, does not respond to verbal nor tactile stimuli; no gag reflex, pupils are non reactive to light. Patient is orally intubated with ETT 7.5 at 23cm on the lip with vent settings as follows: AC 14, TV 500, FiO2 40%, and PEEP 10; patient is saturating 97% at this time. security monitor shows NSR with HR of 70. Patient has an NGT on the left nares, patient is NPO at this time per MD order, TF off; will check residual. Left upper arm PICC line noted, intact, patent, and asymptomatic. IV fluids infusing: D5W at 125ml/hr and Levophed infusing at 26mcg/min, increased by PM nurse to 27mcg/min d/t BP 86/63; will continue to monitor BP per protocol. Patient has a Lainez catheter in place, draining pale yellow urine output to gravity. Safety measures in place: bed is locked, alarmed, and in lowest position, side rails up x3, and call light is left within reach. Will continue plan of care and will continue to monitor patient.
--- NOTE | 2020-04-06 07:28 | NUR ---
HAND-OFF: Report given to SHARATH Jose. Endorsed POC.
--- NOTE | 2020-04-06 08:05 | NUR ---
NURSE NOTES: Dr Ledesma present at bedside, seen and assessed patient; updated on patient's condition. No new verbal orders received at this time.
[2020-04-06] MEDS: Ascorbic Acid 500mg tab NG SCH (08:11)
[2020-04-06] MEDS: Midodrine 10mg tab NG SCH ×3 (08:12→17:34)
[2020-04-06] MEDS: Pantoprazole Inj IVP SCH (08:12)
[2020-04-06] MEDS: Lactulose 20gm/30ml UDC NG SCH ×3 (08:12→17:34)
[2020-04-06] MEDS: Zinc Sulfate 220mg NG SCH (08:12)
[2020-04-06] MEDS: Multivitamins W/Minerals 15 ML UDC NG SCH (08:12)
[2020-04-06] MEDS: Heparin 5000 units/ml inj SUBQ SCH ×2 (08:14→20:43)
--- NOTE | 2020-04-06 08:16 | General Progress Note ---
Assessment/Plan Problem List: (1) COPD (chronic obstructive pulmonary disease) ICD Codes: J44.9 - Chronic obstructive pulmonary disease, unspecified SNOMED: 72739784 Qualifiers: Qualified Codes: J44.9 - Chronic obstructive pulmonary disease, unspecified (2) Pneumonia ICD Codes: J18.9 - Pneumonia, unspecified organism SNOMED: 248541967 Qualifiers: Qualified Codes: J18.9 - Pneumonia, unspecified organism (3) Fever ICD Codes: R50.9 - Fever, unspecified SNOMED: 945318313 Status: stable, progressing Assessment/Plan: clinically brain based on clinical exam and EEG(no activity). Await confirmation by 2nd MD. Then terminal extubation. Subjective ROS Limited/Unobtainable: Yes Constitutional: Reports: no symptoms HEENT: Reports: no symptoms Cardiovascular: Reports: no symptoms Respiratory: Reports: no symptoms Gastrointestinal/Abdominal: Reports: no symptoms Genitourinary: Reports: no symptoms Neurologic/Psychiatric: Reports: pre-existing deficit Endocrine: Reports: no symptoms Hematologic/Lymphatic: Reports: no symptoms Allergies: Coded Allergies: PENICILLINS (Verified Allergy, Unknown, 03/11/20) All Systems: reviewed and negative except above Subjective unresponsive. no events. on the vent. full support. breathing 14. ac 14. no gag. pupils fixed and unresponsive. no response to painful stimuli. EEG with NO activity Objective Last 24 Hour Vital Signs Date Time Temp Pulse Resp B/P (MAP) Pulse Ox O2 Delivery O2 Flow Rate FiO2 04/06/20 07:54 69 14 100 Mechanical Ventilator 40 69 14 100 04/06/20 07:00 73 14 88/63 (71) 96 04/06/20 07:00 88/63 04/06/20 06:00 87/63 04/06/20 06:00 96.1 82 14 102/71 (81) 97 04/06/20 05:30 71 14 100/74 (83) 97 04/06/20 05:00 71 14 86/62 (70) 96 04/06/20 05:00 86/60 04/06/20 04:30 65 14 102/70 (81) 98 04/06/20 04:00 63 04/06/20 04:00 63 14 97/67 (77) 98 04/06/20 04:00 97/67 04/06/20 04:00 Mechanical Ventilator 04/06/20 04:00 40 04/06/20 03:30 64 14 88/65 (73) 98 04/06/20 03:00 65 14 86/60 (69) 99 04/06/20 03:00 86/60 04/06/20 02:47 66 14 100 Mechanical Ventilator 40 66 14 100 04/06/20 02:30 68 14 94/64 (74) 98 04/06/20 02:00 76 14 127/92 (104) 100 04/06/20 02:00 127/92 04/06/20 01:02 95/68 04/06/20 01:00 68 14 99/71 (80) 98 04/06/20 00:30 66 14 106/69 (81) 99 04/06/20 00:00 96.0 64 14 95/68 (77) 99 04/06/20 00:00 Mechanical Ventilator 04/06/20 00:00 95/68 04/06/20 00:00 64 04/05/20 23:41 66 14 100 Mechanical Ventilator 40 66 14 100 04/05/20 23:00 65 14 102/74 (83) 99 04/05/20 23:00 102/74 04/05/20 22:30 69 14 100/74 (83) 97 04/05/20 22:00 75 14 114/80 (91) 95 04/05/20 22:00 114/80 04/05/20 21:30 89 14 144/100 (115) 95 04/05/20 21:00 56 14 49/31 (37) 100 04/05/20 21:00 49/31 04/05/20 20:30 58 14 120/80 (93) 100 04/05/20 20:00 40 04/05/20 20:00 59 04/05/20 20:00 Mechanical Ventilator 04/05/20 20:00 110/74 04/05/20 20:00 96.2 59 14 110/74 (86) 100 04/05/20 19:41 59 14 100 Mechanical Ventilator 40 60 14 100 04/05/20 19:00 58 14 113/73 (86) 99 04/05/20 19:00 113/73 04/05/20 18:30 58 14 109/72 (84) 99 04/05/20 18:00 129/79 04/05/20 18:00 61 14 129/79 (96) 100 04/05/20 17:48 102/74 04/05/20 17:30 63 14 102/74 (83) 99 04/05/20 17:15 164/98 04/05/20 17:00 72/54 04/05/20 17:00 64 14 143/91 (108) 100 04/05/20 16:30 60 14 99/72 (81) 100 04/05/20 16:00 Mechanical Ventilator 04/05/20 16:00 96.1 61 14 114/81 (92) 100 04/05/20 16:00 61 14 114/81 (92) 100 04/05/20 16:00 60 04/05/20 16:00 100/70 04/05/20 16:00 40 04/05/20 15:30 62 14 100/70 (80) 100 04/05/20 15:10 61 14 100 Mechanical Ventilator 40 61 14 100 04/05/20 15:00 119/80 04/05/20 15:00 61 14 119/80 (93) 100 04/05/20 14:30 62 14 114/81 (92) 100 04/05/20 14:00 110/73 04/05/20 14:00 62 14 110/73 (85) 100 04/05/20 13:30 62 14 112/77 (89) 100 04/05/20 13:00 112/78 04/05/20 13:00 64 14 107/77 (87) 100 04/05/20 12:45 113/82 04/05/20 12:30 111/76 04/05/20 12:15 111/76 04/05/20 12:00 Mechanical Ventilator 04/05/20 12:00 107/78 04/05/20 12:00 40 04/05/20 12:00 64 04/05/20 12:00 65 14 107/78 (88) 100 04/05/20 11:47 65 122/79 04/05/20 11:31 65 14 100 Mechanical Ventilator 40 65 14 100 04/05/20 11:30 64 14 118/78 (91) 100 04/05/20 11:00 65 14 111/82 (92) 100 04/05/20 11:00 111/82 04/05/20 10:30 65 14 115/81 (92) 100 04/05/20 10:00 66 14 115/83 (94) 100 04/05/20 10:00 114/81 04/05/20 09:30 66 14 115/82 (93) 100 04/05/20 09:00 66 14 111/81 (91) 100 04/05/20 09:00 111/81 04/05/20 08:30 66 14 107/75 (86) 100 04/05/20 08:29 110/78 Intake and Output 04/05/20 04/06/20 19:00 07:00 Intake Total 2066.56 ml 1561.87 ml Output Total 1645 ml 1350 ml Balance 421.56 ml 211.87 ml IV Total 2066.56 ml 1561.87 ml Tube Feeding 0 ml 0 ml Output Urine Total 1645 ml 1350 ml Laboratory Tests 04/05/20 13:05: Vancomycin Level Trough 18.1H 04/06/20 03:45: White Blood Count 12.3H, Red Blood Count 3.40L, Hemoglobin 10.4L, Hematocrit 34.2L, Mean Corpuscular Volume 101H, Mean Corpuscular Hemoglobin 30.6, Mean Corpuscular Hemoglobin Concent 30.4L, Red Cell Distribution Width 14.9H, Platelet Count 243, Mean Platelet Volume 7.9, Neutrophils (%) (Auto) 73.4, Lymphocytes (%) (Auto) 19.5L, Monocytes (%) (Auto) 2.9, Eosinophils (%) (Auto) 3.6H, Basophils (%) (Auto) 0.7, Sodium Level 154#H, Potassium Level 3.3L, Chloride Level 118H, Carbon Dioxide Level 28, Anion Gap 8, Blood Urea Nitrogen 25H, Creatinine 1.1, Estimat Glomerular Filtration Rate 50.5, Glucose Level 91, Calcium Level 9.6 Height (Feet): 5 Height (Inches): 5.00 Weight (Pounds): 134 General Appearance: cachetic, thin EENT: other - fixed and dilated. unresponsive Neck: supple Cardiovascular: regular rhythm Respiratory/Chest: normal breath sounds Abdomen: normal bowel sounds, non tender, soft Edema: no edema noted Arm (L), no edema noted Arm (R), no edema noted Leg (L), no edema noted Leg (R), no edema noted Pedal (L), no edema noted Pedal (R), no edema noted Generalized Neurologic: unresponsive Objective General Appearance: WD/WN, unresponsive intubated Neck: non-tender Cardiovascular: normal rate, regular rhythm Respiratory/Chest: chest wall non-tender, lungs clear, normal breath sounds Abdomen: normal bowel sounds, non tender, soft, no organomegaly Edema: no edema noted Arm (L), no edema noted Arm (R), no edema noted Leg (L), no edema noted Leg (R), no edema noted Pedal (L), no edema noted Pedal (R), no edema noted Generalized Neurologic: unresponsive Isaak Ledesma MD Apr 06, 2020 08:16
--- NOTE | 2020-04-06 08:25 | NUR ---
NURSE NOTES: Scheduled AM meds given. Residual noted 120ml, thin consistency and benitez colored. TF remains off. Oral care provided. Patient afebrile. Will continue to monitor.
--- NOTE | 2020-04-06 09:24 | Critical Care Progress Note ---
Assessment/Plan Assessment/Plan IMPRESSION: 1. COPD 2. Hypercapnia and hypoxemia. 3. Pneumonia,group home 4. Hypothyroidism. 5. History of allergies. 6. Severe protein-calorie malnutrition. 7. Mild leukocytosis. 8. acute respiratory failure/ failed extubation 9. pulmonary congestion 10. hypernatremia 11. brain care noted brain respiratory care as is on pressors reviewed changes; monitor secretions- discussed care Ventilatory support as is; recommend trach monitor for CO2 retention and congestion maintain meds DVT prophylaxis; supportive care as is off load aspiration precautions position change and off load oxygen therapy as is terminal extubation medications/laboratory data/nursing notes/ICU care reviewed in detail note reviewed and edited care discussed with RN and RT ICU time spent >40 minutes Critical Care - Subjective Interval Events: clinically brain d/w dr bee ROS Limited/Unobtainable: Yes Condition: critical EKG Rhythm: Sinus Rhythm I&O: Intake and Output 04/05/20 04/06/20 19:00 07:00 Intake Total 2066.56 ml 1561.87 ml Output Total 1645 ml 1500 ml Balance 421.56 ml 61.87 ml IV Total 2066.56 ml 1561.87 ml Tube Feeding 0 ml 0 ml Output Urine Total 1645 ml 1500 ml Critical Care - Objective ET-Tube: 7.5 ET Position: 23 Last 24 Hour Vital Signs Date Time Temp Pulse Resp B/P (MAP) Pulse Ox O2 Delivery O2 Flow Rate FiO2 04/06/20 08:30 69 14 96/68 (77) 98 04/06/20 08:15 97.3 69 14 101/70 (80) 99 04/06/20 08:00 69 14 89/68 (75) 98 04/06/20 08:00 40 04/06/20 07:54 69 14 100 Mechanical Ventilator 40 69 14 100 04/06/20 07:00 73 14 88/63 (71) 96 04/06/20 07:00 88/63 04/06/20 06:00 87/63 04/06/20 06:00 96.1 82 14 102/71 (81) 97 04/06/20 05:30 71 14 100/74 (83) 97 04/06/20 05:00 71 14 86/62 (70) 96 04/06/20 05:00 86/60 04/06/20 04:30 65 14 102/70 (81) 98 7/3/20 04:00 63 04/06/20 04:00 63 14 97/67 (77) 98 04/06/20 04:00 97/67 04/06/20 04:00 Mechanical Ventilator 04/06/20 04:00 40 04/06/20 03:30 64 14 88/65 (73) 98 04/06/20 03:00 65 14 86/60 (69) 99 04/06/20 03:00 86/60 04/06/20 02:47 66 14 100 Mechanical Ventilator 40 66 14 100 04/06/20 02:30 68 14 94/64 (74) 98 04/06/20 02:00 76 14 127/92 (104) 100 04/06/20 02:00 127/92 04/06/20 01:02 95/68 04/06/20 01:00 68 14 99/71 (80) 98 04/06/20 00:30 66 14 106/69 (81) 99 04/06/20 00:00 96.0 64 14 95/68 (77) 99 04/06/20 00:00 Mechanical Ventilator 04/06/20 00:00 95/68 04/06/20 00:00 64 04/05/20 23:41 66 14 100 Mechanical Ventilator 40 66 14 100 04/05/20 23:00 65 14 102/74 (83) 99 04/05/20 23:00 102/74 04/05/20 22:30 69 14 100/74 (83) 97 04/05/20 22:00 75 14 114/80 (91) 95 04/05/20 22:00 114/80 04/05/20 21:30 89 14 144/100 (115) 95 04/05/20 21:00 56 14 49/31 (37) 100 04/05/20 21:00 49/31 04/05/20 20:30 58 14 120/80 (93) 100 04/05/20 20:00 40 04/05/20 20:00 59 04/05/20 20:00 Mechanical Ventilator 04/05/20 20:00 110/74 04/05/20 20:00 96.2 59 14 110/74 (86) 100 04/05/20 19:41 59 14 100 Mechanical Ventilator 40 60 14 100 04/05/20 19:00 58 14 113/73 (86) 99 04/05/20 19:00 113/73 04/05/20 18:30 58 14 109/72 (84) 99 04/05/20 18:00 129/79 04/05/20 18:00 61 14 129/79 (96) 100 04/05/20 17:48 102/74 04/05/20 17:30 63 14 102/74 (83) 99 04/05/20 17:15 164/98 04/05/20 17:00 72/54 04/05/20 17:00 64 14 143/91 (108) 100 04/05/20 16:30 60 14 99/72 (81) 100 04/05/20 16:00 Mechanical Ventilator 04/05/20 16:00 96.1 61 14 114/81 (92) 100 04/05/20 16:00 61 14 114/81 (92) 100 04/05/20 16:00 60 04/05/20 16:00 100/70 04/05/20 16:00 40 04/05/20 15:30 62 14 100/70 (80) 100 04/05/20 15:10 61 14 100 Mechanical Ventilator 40 61 14 100 04/05/20 15:00 119/80 04/05/20 15:00 61 14 119/80 (93) 100 04/05/20 14:30 62 14 114/81 (92) 100 04/05/20 14:00 110/73 04/05/20 14:00 62 14 110/73 (85) 100 04/05/20 13:30 62 14 112/77 (89) 100 04/05/20 13:00 112/78 04/05/20 13:00 64 14 107/77 (87) 100 04/05/20 12:45 113/82 04/05/20 12:30 111/76 04/05/20 12:15 111/76 04/05/20 12:00 Mechanical Ventilator 04/05/20 12:00 107/78 04/05/20 12:00 40 04/05/20 12:00 64 04/05/20 12:00 65 14 107/78 (88) 100 04/05/20 11:47 65 122/79 04/05/20 11:31 65 14 100 Mechanical Ventilator 40 65 14 100 04/05/20 11:30 64 14 118/78 (91) 100 04/05/20 11:00 65 14 111/82 (92) 100 04/05/20 11:00 111/82 04/05/20 10:30 65 14 115/81 (92) 100 04/05/20 10:00 66 14 115/83 (94) 100 04/05/20 10:00 114/81 04/05/20 09:30 66 14 115/82 (93) 100 Labs: Labs Test 04/03/20 13:00 04/04/20 09:47 04/05/20 04:22 04/05/20 13:05 Urine Color Pale yellow Urine Appearance Clear Urine pH 5 (4.5-8.0) Urine Specific [place] 1.005 (1.005-1.035) Urine Protein Negative (NEGATIVE) Urine Glucose (UA) Negative (NEGATIVE) Urine Ketones Negative (NEGATIVE) Urine Blood 1+ (NEGATIVE) Urine Nitrite Negative (NEGATIVE) Urine Bilirubin Negative (NEGATIVE) Urine Urobilinogen Normal MG/DL (0.0-1.0) Urine Leukocyte Esterase Negative (NEGATIVE) Urine RBC 0-2 /HPF (0 - 2) Urine WBC 0-2 /HPF (0 - 2) Urine Squamous Epithelial Cells None /LPF (NONE/OCC) Urine Bacteria Occasional /HPF (NONE) Urine Yeast Many /HPF (NONE) White Blood Count 18.0 K/UL (4.8-10.8) 14.5 K/UL (4.8-10.8) Red Blood Count 3.30 M/UL (4.20-5.40) 3.37 M/UL (4.20-5.40) Hemoglobin 10.2 G/DL (12.0-16.0) 10.4 G/DL (12.0-16.0) Hematocrit 33.2 % (37.0-47.0) 34.0 % (37.0-47.0) Mean Corpuscular Volume 101 FL (80-99) 101 FL (80-99) Mean Corpuscular Hemoglobin 30.9 PG (27.0-31.0) 31.0 PG (27.0-31.0) Mean Corpuscular Hemoglobin Concent 30.8 G/DL (32.0-36.0) 30.7 G/DL (32.0-36.0) Red Cell Distribution Width 15.3 % (11.6-14.8) 15.0 % (11.6-14.8) Platelet Count 311 K/UL (150-450) 279 K/UL (150-450) Mean Platelet Volume 7.6 FL (6.5-10.1) 8.0 FL (6.5-10.1) Neutrophils (%) (Auto) % (45.0-75.0) 79.5 % (45.0-75.0) Lymphocytes (%) (Auto) % (20.0-45.0) 14.1 % (20.0-45.0) Monocytes (%) (Auto) % (1.0-10.0) 2.0 % (1.0-10.0) Eosinophils (%) (Auto) % (0.0-3.0) 3.5 % (0.0-3.0) Basophils (%) (Auto) % (0.0-2.0) 0.9 % (0.0-2.0) Differential Total Cells Counted 100 Neutrophils % (Manual) 82 % (45-75) Lymphocytes % (Manual) 13 % (20-45) Monocytes % (Manual) 4 % (1-10) Eosinophils % (Manual) 1 % (0-3) Basophils % (Manual) 0 % (0-2) Band Neutrophils 0 % (0-8) Platelet Estimate Adequate Platelet Morphology Normal Hypochromasia 1+ Anisocytosis 1+ Macrocytosis 1+ Sodium Level 167 MMOL/L (136-145) 164 MMOL/L (136-145) Potassium Level 3.0 MMOL/L (3.5-5.1) 3.3 MMOL/L (3.5-5.1) Chloride Level 128 MMOL/L (98-107) 126 MMOL/L (98-107) Carbon Dioxide Level 32 MMOL/L (21-32) 30 MMOL/L (21-32) Anion Gap 7 mmol/L (5-15) 9 mmol/L (5-15) Blood Urea Nitrogen 23 mg/dL (7-18) 24 mg/dL (7-18) Creatinine 1.0 MG/DL (0.55-1.30) 1.1 MG/DL (0.55-1.30) Estimat Glomerular Filtration Rate 56.4 mL/min (>60) 50.5 mL/min (>60) Glucose Level 138 MG/DL (74-106) 170 MG/DL (74-106) Calcium Level 9.2 MG/DL (8.5-10.1) 9.3 MG/DL (8.5-10.1) Total Bilirubin 0.3 MG/DL (0.2-1.0) 0.2 MG/DL (0.2-1.0) Aspartate Amino Transf (AST/SGOT) 47 U/L (15-37) 48 U/L (15-37) Alanine Aminotransferase (ALT/SGPT) 55 U/L (12-78) 46 U/L (12-78) Alkaline Phosphatase 141 U/L (46-116) 154 U/L (46-116) Total Protein 6.3 G/DL (6.4-8.2) 6.5 G/DL (6.4-8.2) Albumin 1.3 G/DL (3.4-5.0) 1.3 G/DL (3.4-5.0) Globulin 5.0 g/dL 5.2 g/dL Albumin/Globulin Ratio 0.3 (1.0-2.7) 0.2 (1.0-2.7) Vancomycin Level Trough 18.1 ug/mL (5.0-12.0) Test 04/06/20 03:45 White Blood Count 12.3 K/UL (4.8-10.8) Red Blood Count 3.40 M/UL (4.20-5.40) Hemoglobin 10.4 G/DL (12.0-16.0) Hematocrit 34.2 % (37.0-47.0) Mean Corpuscular Volume 101 FL (80-99) Mean Corpuscular Hemoglobin 30.6 PG (27.0-31.0) Mean Corpuscular Hemoglobin Concent 30.4 G/DL (32.0-36.0) Red Cell Distribution Width 14.9 % (11.6-14.8) Platelet Count 243 K/UL (150-450) Mean Platelet Volume 7.9 FL (6.5-10.1) Neutrophils (%) (Auto) 73.4 % (45.0-75.0) Lymphocytes (%) (Auto) 19.5 % (20.0-45.0) Monocytes (%) (Auto) 2.9 % (1.0-10.0) Eosinophils (%) (Auto) 3.6 % (0.0-3.0) Basophils (%) (Auto) 0.7 % (0.0-2.0) Sodium Level 154 MMOL/L (136-145) Potassium Level 3.3 MMOL/L (3.5-5.1) Chloride Level 118 MMOL/L (98-107) Carbon Dioxide Level 28 MMOL/L (21-32) Anion Gap 8 mmol/L (5-15) Blood Urea Nitrogen 25 mg/dL (7-18) Creatinine 1.1 MG/DL (0.55-1.30) Estimat Glomerular Filtration Rate 50.5 mL/min (>60) Glucose Level 91 MG/DL (74-106) Calcium Level 9.6 MG/DL (8.5-10.1) Objective: GENERAL: An ill-appearing female. NAD on Vent NECK: Supple. No adenopathy. LUNGS: Coarse breath sounds. Moderate air entry. ETT in place; no rhonchi or wheeze CARDIAC: S1, S2. Regular rate and rhythm without murmur. ABDOMEN: Soft, nontender, nondistended. feeding tube EXTREMITIES: No cyanosis, clubbing, or edema. obtunded on the vent reviewed and edited Micro: Microbiology Date/Time Source Procedure Growth Status 04/03/20 13:00 Blood Blood Culture - Preliminary NO GROWTH AFTER 48 HOURS Resulted 04/03/20 15:00 Sputum Gram Stain - Final Complete 04/03/20 15:00 Sputum Sputum Culture - Final NORMAL UPPER RESPIRATORY ALEXANDRO PRESENT Complete 04/03/20 13:00 Urine,Clean Catch Urine Culture - Final Delfina Albicans Complete Javier Blake MD Apr 06, 2020 09:24
--- NOTE | 2020-04-06 09:50 | NUR ---
RD ASSESSMENT & RECOMMENDATIONS SEE CARE ACTIVITY FOR COMPLETE ASSESSMENT DAILY ESTIMATED NEEDS: Needs based on Wound, Critical care / 56kg 25-30 kcals/kg 9404-3889 total kcals 1.25-2 g protein/kg 70-112 g total protein 25-30 mL/kg 8963-2013 total fluid mLs NUTRITION DIAGNOSIS: * Swallowing difficulty R/T dysphagia as evidenced by CAMPAIGN ASSISTANT w/ rec for NPO, now on NGT feeds, s/p respiratory failure, orally intubated in ICU. * Increased kcal/prot/micronutrients needs R/T wound healing as evidenced by pt admitted w/ multiple wounds including full thickness wound @ sacrum, DTPI wound @ L Gluteal cheek, and non-Blanchable erythema @ BL heels. CURRENT DIET:NPO CURRENT TF:Jevity 1.2 @ 55ml/hr x22 hrs- NOW HELD ENTERAL NUTRITION RECOMMENDATIONS: VITAL 1.2 goal of 60ml/hr x22 hrs (HOLD 1 HR BEFORE AND AFTER SYNTHROID) to provide 1320ml, 1584 kcal, 99g pro, 1071ml free H2O - As able, rec trophic feeds of 5-10ml/hr to maintain gut integrity. - With improved stability, increase goal rate to 60ml/hr to better meet est needs - Hold 1 hr before and after Synthroid med - flush per MD, HOB over 30 degrees ADDITIONAL RECOMMENDATIONS: * Per SNF: HT=66" QG=039uzb (03/07/20) * Wound healing: continue MVI, Vit C, and ZnSO4 add TONI BID via NGT when stable to feed. * Monitor lytes, replete as needed * Monitor BG, need for NISS w/ TF's * (04/06) On pressors, not stable for feeds, possible terminal extubation
--- NOTE | 2020-04-06 10:00 | NUR ---
NURSE NOTES: Dr Blake present in the unit, updated on patient's condition. Repositioned patient; is clean and dry at this time. No distress noted. Will continue to monitor.
--- NOTE | 2020-04-06 10:34 | NUR ---
CASE MANAGEMENT:REVIEW 04/06/20 SI: PNA. ACUTE RESPIRATORY FAILURE FAILED EXTUBATION. BRAIN 97.3 69 14 96/69 98% ON VENT SUPPORT W/40% FIO2 WBC+12.3 H/H-10.4/34.2 NA+154 K-3.3 BUN+25 IS: IV VANCOMYCIN Q12 IV CEFEPIME Q12 LEVOPHED GTT IV PROTONIX QD LACTULOSE NG TID HEPARIN SQ Q12 ALBUTEROL INH Q4HRS RTC : ICU STATUS DCP: FROM [facility]
--- NOTE | 2020-04-06 11:07 | NUR ---
*-* INSURANCE *-* UPDATED CLINICALS AND REVIEWS HAVE BEEN FAXED TO; [facility] F: [phone] REF #[id number]
--- NOTE | 2020-04-06 11:20 | Infectious Diseases Prog Note ---
Assessment/Plan Assessment/Plan antibiotics : vancomycin iv, cefepime A 1. klebsiella pneumonia COVID 19 test negative x 2 2. respiratory failure 3. COPD 4. leucocytosis improved 5. hypothyroidism 6. schizophrenia 7. shock P 1. continue iv vancomycin, cefepime 2. will follow up cultures Subjective ROS Limited/Unobtainable: Yes Allergies: Coded Allergies: PENICILLINS (Verified Allergy, Unknown, 03/11/20) Objective Last 24 Hour Vital Signs Date Time Temp Pulse Resp B/P (MAP) Pulse Ox O2 Delivery O2 Flow Rate FiO2 04/06/20 09:45 68 14 96/69 (78) 98 04/06/20 09:30 68 14 94/67 (76) 98 04/06/20 09:15 69 14 92/64 (73) 99 04/06/20 09:00 68 14 91/62 (72) 98 04/06/20 08:30 69 14 96/68 (77) 98 04/06/20 08:15 97.3 69 14 101/70 (80) 99 04/06/20 08:00 69 14 89/68 (75) 98 04/06/20 08:00 Mechanical Ventilator 04/06/20 08:00 40 04/06/20 07:54 69 14 100 Mechanical Ventilator 40 69 14 100 04/06/20 07:00 73 14 88/63 (71) 96 04/06/20 07:00 88/63 04/06/20 06:00 87/63 04/06/20 06:00 96.1 82 14 102/71 (81) 97 04/06/20 05:30 71 14 100/74 (83) 97 04/06/20 05:00 71 14 86/62 (70) 96 04/06/20 05:00 86/60 04/06/20 04:30 65 14 102/70 (81) 98 04/06/20 04:00 63 04/06/20 04:00 63 14 97/67 (77) 98 04/06/20 04:00 97/67 04/06/20 04:00 Mechanical Ventilator 04/06/20 04:00 40 04/06/20 03:30 64 14 88/65 (73) 98 04/06/20 03:00 65 14 86/60 (69) 99 04/06/20 03:00 86/60 04/06/20 02:47 66 14 100 Mechanical Ventilator 40 66 14 100 04/06/20 02:30 68 14 94/64 (74) 98 04/06/20 02:00 76 14 127/92 (104) 100 04/06/20 02:00 127/92 04/06/20 01:02 95/68 04/06/20 01:00 68 14 99/71 (80) 98 04/06/20 00:30 66 14 106/69 (81) 99 04/06/20 00:00 96.0 64 14 95/68 (77) 99 04/06/20 00:00 Mechanical Ventilator 04/06/20 00:00 95/68 04/06/20 00:00 64 04/05/20 23:41 66 14 100 Mechanical Ventilator 40 66 14 100 04/05/20 23:00 65 14 102/74 (83) 99 04/05/20 23:00 102/74 04/05/20 22:30 69 14 100/74 (83) 97 04/05/20 22:00 75 14 114/80 (91) 95 04/05/20 22:00 114/80 04/05/20 21:30 89 14 144/100 (115) 95 04/05/20 21:00 56 14 49/31 (37) 100 04/05/20 21:00 49/31 04/05/20 20:30 58 14 120/80 (93) 100 20 20:00 40 04/05/20 20:00 59 04/05/20 20:00 Mechanical Ventilator 04/05/20 20:00 110/74 04/05/20 20:00 96.2 59 14 110/74 (86) 100 04/05/20 19:41 59 14 100 Mechanical Ventilator 40 60 14 100 04/05/20 19:00 58 14 113/73 (86) 99 20 19:00 113/73 04/05/20 18:30 58 14 109/72 (84) 99 20 18:00 129/79 20 18:00 61 14 129/79 (96) 100 04/05/20 17:48 102/74 04/05/20 17:30 63 14 102/74 (83) 99 04/05/20 17:15 164/98 04/05/20 17:00 72/54 04/05/20 17:00 64 14 143/91 (108) 100 04/05/20 16:30 60 14 99/72 (81) 100 04/05/20 16:00 Mechanical Ventilator 04/05/20 16:00 96.1 61 14 114/81 (92) 100 04/05/20 16:00 61 14 114/81 (92) 100 04/05/20 16:00 60 04/05/20 16:00 100/70 04/05/20 16:00 40 04/05/20 15:30 62 14 100/70 (80) 100 04/05/20 15:10 61 14 100 Mechanical Ventilator 40 61 14 100 04/05/20 15:00 119/80 04/05/20 15:00 61 14 119/80 (93) 100 04/05/20 14:30 62 14 114/81 (92) 100 04/05/20 14:00 110/73 04/05/20 14:00 62 14 110/73 (85) 100 04/05/20 13:30 62 14 112/77 (89) 100 04/05/20 13:00 112/78 04/05/20 13:00 64 14 107/77 (87) 100 04/05/20 12:45 113/82 04/05/20 12:30 111/76 04/05/20 12:15 111/76 04/05/20 12:00 Mechanical Ventilator 04/05/20 12:00 107/78 04/05/20 12:00 40 04/05/20 12:00 64 04/05/20 12:00 65 14 107/78 (88) 100 04/05/20 11:47 65 122/79 04/05/20 11:31 65 14 100 Mechanical Ventilator 40 65 14 100 04/05/20 11:30 64 14 118/78 (91) 100 Height (Feet): 5 Height (Inches): 5.00 Weight (Pounds): 134 HEENT: other - intubated Respiratory/Chest: lungs clear Cardiovascular: normal rate, regular rhythm, no gallop/murmur Abdomen: soft, non tender Extremities: no edema, other - left arm PICC Microbiology Date/Time Source Procedure Growth Status 04/03/20 13:00 Blood Blood Culture - Preliminary NO GROWTH AFTER 48 HOURS Resulted 04/03/20 15:00 Sputum Gram Stain - Final Complete 04/03/20 15:00 Sputum Sputum Culture - Final NORMAL UPPER RESPIRATORY ALEXANDRO PRESENT Complete 04/03/20 13:00 Urine,Clean Catch Urine Culture - Final Delfina Albicans Complete Laboratory Tests Test 04/05/20 13:05 04/06/20 03:45 Vancomycin Level Trough 18.1 ug/mL (5.0-12.0) H White Blood Count 12.3 K/UL (4.8-10.8) H Red Blood Count 3.40 M/UL (4.20-5.40) L Hemoglobin 10.4 G/DL (12.0-16.0) L Hematocrit 34.2 % (37.0-47.0) L Mean Corpuscular Volume 101 FL (80-99) H Mean Corpuscular Hemoglobin 30.6 PG (27.0-31.0) Mean Corpuscular Hemoglobin Concent 30.4 G/DL (32.0-36.0) L Red Cell Distribution Width 14.9 % (11.6-14.8) H Platelet Count 243 K/UL (150-450) Mean Platelet Volume 7.9 FL (6.5-10.1) Neutrophils (%) (Auto) 73.4 % (45.0-75.0) Lymphocytes (%) (Auto) 19.5 % (20.0-45.0) L Monocytes (%) (Auto) 2.9 % (1.0-10.0) Eosinophils (%) (Auto) 3.6 % (0.0-3.0) H Basophils (%) (Auto) 0.7 % (0.0-2.0) Sodium Level 154 MMOL/L (136-145) #H Potassium Level 3.3 MMOL/L (3.5-5.1) L Chloride Level 118 MMOL/L (98-107) H Carbon Dioxide Level 28 MMOL/L (21-32) Anion Gap 8 mmol/L (5-15) Blood Urea Nitrogen 25 mg/dL (7-18) H Creatinine 1.1 MG/DL (0.55-1.30) Estimat Glomerular Filtration Rate 50.5 mL/min (>60) Glucose Level 91 MG/DL (74-106) Calcium Level 9.6 MG/DL (8.5-10.1) Current Medications Medications (Trade) Dose Ordered Sig/Ranjeet Route PRN Reason Start Time Stop Time Status Last Admin Dose Admin Acetaminophen (Tylenol) 650 mg Q4H PRN NG Mild Pain (1-3)/Fever > 100.5 03/22/20 15:30 04/10/20 19:29 Albuterol Sulfate (Proventil MDI) 2 puff Q4HRT INH 03/18/20 15:00 06/13/20 02:59 04/06/20 07:54 Ascorbic Acid (Vitamin C) 500 mg DAILY NG 03/23/20 09:00 04/11/20 08:59 04/06/20 08:11 Atropine Sulfate (Atropine) 1 mg Q1H PRN IVP HR <40BPM 03/18/20 13:30 04/17/20 13:29 03/31/20 14:58 Cefepime HCl 2 gm/ Dextrose 55 ml @ 110 mls/hr Q12H IVPB 04/02/20 12:00 04/09/20 11:59 04/05/20 23:10 Chlorhexidine Gluconate (Mary-Hex 2%) 1 applic DAILY@2000 TOPIC 03/21/20 20:00 06/19/20 19:59 04/05/20 19:47 Clonidine HCl (Catapres Tab) 0.1 mg Q4H PRN NG For High Blood Pressure 03/31/20 16:45 06/29/20 16:44 03/31/20 16:45 Dextrose 1,000 ml @ 125 mls/hr Q8H IV 04/04/20 11:30 05/04/20 11:29 04/06/20 03:33 Heparin Sodium (Porcine) (Heparin 5000 units/ml) 5,000 units EVERY 12 HOURS SUBQ 03/18/20 21:00 04/25/20 20:59 04/06/20 08:14 Lactulose (Cephulac) 30 gm THREE TIMES A DAY NG 03/22/20 18:00 04/18/20 09:14 04/06/20 08:12 Levothyroxine Sodium (Synthroid) 150 mcg DAILY@0630 ORAL 03/31/20 06:30 04/30/20 06:29 04/06/20 06:01 Loratadine (Claritin 10mg) 10 mg DAILY ORAL 03/23/20 09:00 04/11/20 08:59 04/06/20 08:11 Magnesium Hydroxide (Mom) 30 ml HSPRN PRN NG Constipation 03/22/20 15:30 04/17/20 13:59 04/03/20 17:15 Midodrine (Pro-Amatine) 10 mg THREE TIMES A DAY NG 03/24/20 13:00 06/21/20 08:59 04/06/20 08:12 Multivitamins (Multivitamins W/ Minerals 15ml Liquid) 15 ml DAILY NG 03/23/20 09:00 04/11/20 08:59 04/06/20 08:12 Norepinephrine Bitartrate 8 mg/ Dextrose 250 ml @ 0 mls/hr Q24H IV 04/01/20 13:30 05/01/20 13:29 04/06/20 06:00 Pantoprazole (Protonix) 40 mg DAILY IVP 03/23/20 09:00 04/22/20 08:59 04/06/20 08:12 Phenylephrine HCl 50 mg/Dextrose 250 ml @ 0 mls/hr Q24H IV 04/01/20 12:00 05/01/20 11:59 04/03/20 23:36 Vancomycin HCl (Vanco pharmacy to dose) 1 ea DAILY PRN MISC Per rx protocol 04/03/20 11:00 05/03/20 10:59 Vancomycin HCl 1 gm/Sodium Chloride 275 ml @ 183.708 mls/hr Q12H IVPB 04/03/20 14:00 04/08/20 13:59 04/06/20 02:51 Zinc Sulfate (Zinc Sulfate) 220 mg DAILY NG 03/23/20 09:00 06/10/20 08:59 04/06/20 08:12 Eh Bailey MD Apr 06, 2020 11:20
[2020-04-06] MEDS: Phenylephrine 50 MG in D5W 245 ML IV SCH (12:00)
--- NOTE | 2020-04-06 12:00 | NUR ---
NURSE NOTES: Repositioned patient and oral care provided. No distress at this time. Remains orally intubated, tolerating vent settings. Levophed infusing at 27mcg/min. Will continue to monitor.
--- NOTE | 2020-04-06 12:30 | NUR ---
NURSE NOTES: [facility] was called and reported terminal extubation for this patient, spoke with Rubén ([employer] representative); stated that they will send someone over to evaluate the patient. Charge nurse notified. Reference number obtained [id number].
[2020-04-06] MEDS: Cefepime HCl 2 GM in D5W 55 ML IVPB SCH ×2 (12:40→23:47)
--- NOTE | 2020-04-06 14:00 | NUR ---
NURSE NOTES: Patient remains orally intubated, awaiting for [facility] to evaluate patient. Charge nurse notified Dr Ledesma regarding situation and delay in terminal extubation. Levophed increased to 28mcg/min. Will continue to monitor patient.
--- NOTE | 2020-04-06 14:08 | Surgery Progress Note ---
Surgery Progress Note Subjective Additional Comments pending terminal extubation no reflexes no considerable improvement Objective Last 24 Hour Vital Signs Date Time Temp Pulse Resp B/P (MAP) Pulse Ox O2 Delivery O2 Flow Rate FiO2 04/06/20 13:00 102/70 04/06/20 13:00 70 14 102/70 (81) 97 04/06/20 12:10 68 14 40 04/06/20 12:00 Mechanical Ventilator 04/06/20 12:00 40 04/06/20 12:00 97.8 68 14 96/65 (75) 97 04/06/20 12:00 96/65 04/06/20 12:00 68 96/65 04/06/20 12:00 69 04/06/20 11:30 88/62 04/06/20 11:30 67 14 87/57 (67) 98 04/06/20 11:00 67 14 95/62 (73) 98 04/06/20 10:30 67 14 93/66 (75) 98 04/06/20 10:00 68 14 92/67 (75) 98 04/06/20 10:00 92/67 04/06/20 09:45 68 14 96/69 (78) 98 04/06/20 09:30 68 14 94/67 (76) 98 04/06/20 09:15 69 14 92/64 (73) 99 04/06/20 09:00 68 14 91/62 (72) 98 04/06/20 09:00 91/62 04/06/20 08:30 69 14 96/68 (77) 98 04/06/20 08:15 97.3 69 14 101/70 (80) 99 04/06/20 08:00 69 14 89/68 (75) 98 04/06/20 08:00 Mechanical Ventilator 04/06/20 08:00 69 04/06/20 08:00 89/68 04/06/20 08:00 40 04/06/20 07:54 69 14 100 Mechanical Ventilator 40 69 14 100 04/06/20 07:00 73 14 88/63 (71) 96 04/06/20 07:00 88/63 04/06/20 06:00 87/63 04/06/20 06:00 96.1 82 14 102/71 (81) 97 04/06/20 05:30 71 14 100/74 (83) 97 04/06/20 05:00 71 14 86/62 (70) 96 04/06/20 05:00 86/60 04/06/20 04:30 65 14 102/70 (81) 98 04/06/20 04:00 63 04/06/20 04:00 63 14 97/67 (77) 98 04/06/20 04:00 97/67 04/06/20 04:00 Mechanical Ventilator 04/06/20 04:00 40 04/06/20 03:30 64 14 88/65 (73) 98 04/06/20 03:00 65 14 86/60 (69) 99 04/06/20 03:00 86/60 04/06/20 02:47 66 14 100 Mechanical Ventilator 40 66 14 100 04/06/20 02:30 68 14 94/64 (74) 98 04/06/20 02:00 76 14 127/92 (104) 100 04/06/20 02:00 127/92 04/06/20 01:02 95/68 04/06/20 01:00 68 14 99/71 (80) 98 04/06/20 00:30 66 14 106/69 (81) 99 04/06/20 00:00 96.0 64 14 95/68 (77) 99 04/06/20 00:00 Mechanical Ventilator 04/06/20 00:00 95/68 04/06/20 00:00 64 04/05/20 23:41 66 14 100 Mechanical Ventilator 40 66 14 100 04/05/20 23:00 65 14 102/74 (83) 99 04/05/20 23:00 102/74 04/05/20 22:30 69 14 100/74 (83) 97 20 22:00 75 14 114/80 (91) 95 20 22:00 114/80 04/05/20 21:30 89 14 144/100 (115) 95 04/05/20 21:00 56 14 49/31 (37) 100 20 21:00 49/31 20 20:30 58 14 120/80 (93) 100 20 20:00 40 04/05/20 20:00 59 720 20:00 Mechanical Ventilator 04/05/20 20:00 110/74 04/05/20 20:00 96.2 59 14 110/74 (86) 100 04/05/20 19:41 59 14 100 Mechanical Ventilator 40 60 14 100 04/05/20 19:00 58 14 113/73 (86) 99 04/05/20 19:00 113/73 04/05/20 18:30 58 14 109/72 (84) 99 04/05/20 18:00 129/79 04/05/20 18:00 61 14 129/79 (96) 100 04/05/20 17:48 102/74 04/05/20 17:30 63 14 102/74 (83) 99 04/05/20 17:15 164/98 04/05/20 17:00 72/54 04/05/20 17:00 64 14 143/91 (108) 100 04/05/20 16:30 60 14 99/72 (81) 100 04/05/20 16:00 Mechanical Ventilator 04/05/20 16:00 96.1 61 14 114/81 (92) 100 04/05/20 16:00 61 14 114/81 (92) 100 04/05/20 16:00 60 04/05/20 16:00 100/70 04/05/20 16:00 40 04/05/20 15:30 62 14 100/70 (80) 100 04/05/20 15:10 61 14 100 Mechanical Ventilator 40 61 14 100 04/05/20 15:00 119/80 04/05/20 15:00 61 14 119/80 (93) 100 04/05/20 14:30 62 14 114/81 (92) 100 I&O Intake and Output 04/05/20 04/06/20 19:00 07:00 Intake Total 2066.56 ml 1561.87 ml Output Total 1645 ml 1500 ml Balance 421.56 ml 61.87 ml IV Total 2066.56 ml 1561.87 ml Tube Feeding 0 ml 0 ml Output Urine Total 1645 ml 1500 ml Cardiovascular: RSR Respiratory: decreased breath sounds Abdomen: soft, non-distended, decreased bowel sounds Extremities: no cyanosis Laboratory Tests Test 04/06/20 03:45 White Blood Count 12.3 K/UL (4.8-10.8) H Red Blood Count 3.40 M/UL (4.20-5.40) L Hemoglobin 10.4 G/DL (12.0-16.0) L Hematocrit 34.2 % (37.0-47.0) L Mean Corpuscular Volume 101 FL (80-99) H Mean Corpuscular Hemoglobin 30.6 PG (27.0-31.0) Mean Corpuscular Hemoglobin Concent 30.4 G/DL (32.0-36.0) L Red Cell Distribution Width 14.9 % (11.6-14.8) H Platelet Count 243 K/UL (150-450) Mean Platelet Volume 7.9 FL (6.5-10.1) Neutrophils (%) (Auto) 73.4 % (45.0-75.0) Lymphocytes (%) (Auto) 19.5 % (20.0-45.0) L Monocytes (%) (Auto) 2.9 % (1.0-10.0) Eosinophils (%) (Auto) 3.6 % (0.0-3.0) H Basophils (%) (Auto) 0.7 % (0.0-2.0) Sodium Level 154 MMOL/L (136-145) #H Potassium Level 3.3 MMOL/L (3.5-5.1) L Chloride Level 118 MMOL/L (98-107) H Carbon Dioxide Level 28 MMOL/L (21-32) Anion Gap 8 mmol/L (5-15) Blood Urea Nitrogen 25 mg/dL (7-18) H Creatinine 1.1 MG/DL (0.55-1.30) Estimat Glomerular Filtration Rate 50.5 mL/min (>60) Glucose Level 91 MG/DL (74-106) Calcium Level 9.6 MG/DL (8.5-10.1) Plan Problems: (1) Malnutrition Assessment & Plan: not eating enough TF started adv as tolerated bowel regimen worsening prognosis guarded DDAILY ESTIMATED NEEDS: Needs based on Wound, pulmonary / 56kg 25-35 kcals/kg 6402-3189 total kcals 1.25-1.8 g protein/kg 70-100 g total protein 25-30 mL/kg 9468-2206 total fluid mLs NUTRITION DIAGNOSIS: * Swallowing difficulty R/T dysphagia as evidenced by [facility]ER INSTALLER w/ rec for NPO, now on NGT feeds. * Increased kcal/prot/micronutrients needs R/T wound healing as evidenced by pt admitted w/ multiple wounds including full thickness wound @ sacrum, TPI wound @ L Gluteal cheek, and non-Blanchable erythema @ BL heels. CURRENT TF:Jevity 1.2 @30ml/hr ENTERAL NUTRITION RECOMMENDATIONS: JEVITY 1.2 goal of 55ml/hr x24 hrs to provide 1320ml, 1584 kcal, 73g pro, 1065ml free H2O - rec to INCREASE current TF as tolerated to goal of 55ml/hr to better meet est needs. - flush per MD, HOB over 30 degrees ADDITIONAL RECOMMENDATIONS: * Per SNF: HT=66" IT=048qku (03/07/20) * Wound healing: continue MVI, Vit C, and ZnSO4 * VIA NGT-> add TONI BID for wound care TF recs as above * Monitor lytes, replete as needed THIS 60 Y.O.M. WAS ADMITTED WITH ACUTE ISSUES - FEVER, HYPOXIC WITH LOW 02 SATS ON NON-REBREATHER, RESP RATE 18 BPM INITIALLY PER MEDICAL RECORD. PER RN, THE PATIENT HAD A RAPID RESPOSE THIS MORNING (DESAT TO 90S AND RAPID RESP RATE). H/O COPD, CARDIAC DZ, HYPOTHYROIDISM, HTN, ALLERGIC RHINITIS, SCHIZOPHRENIA (ON OLANZAPINE AT SNF), BASELINE NONVERBAL. PER POLST FULL TX BUT NO INFORMATION REGARDING TUBE FEEDING PREFERENCES. AT SNF ON A REGULAR DIET TEXTURE AND THIN LIQUIDS WITH PROSTAT SF DRINK WITH MEALS. NOW ON A REGULAR TEXTURE DIET AND THIN LIQUIDS BUT DID NOT TAKE ANY PO. PER LAURIE EARLY, THE PT UNABLE TO TAKE LARGE PILLS BUT APPEARED TO TOLERATE CRUSHED MEDS WITH APPLESAUCE W/O OVERT ASPIRATION. PATIENT SEEN WITH FUNMI HEATH. PER RT RESP RATE 22 BPM AND NOT ABLE TO ongoing unintelligible confabulations. Patient did request a sandwich, however, not appropriate for regular texture at this time. VITALS ON 2 L NASAL CANNULA: HR: 73; RR: 20; SP02: 95% Patient's oral hygiene is improving, ongoing poor speech intelligibility which appears to be more due to poor articulation precision/oral motor coordination versus 2/2 dry mouth. CXR on 03/14/20: Findings: Interim considerable improvement of previously demonstrated left lower lobe infiltrate. There is a residual disease in the retrocardiac region as well as generalized reticular interstitial opacities throughout the left mid and lower lung. There is questionably a 3 cm spiculated opacity projected over the apex. Minimal right mid and lower lung reticular opacities are also demonstrated. There is some right midlung atelectasis versus thickening of the minor fissure. The heart size is normal. The pleural spaces are clear Impression: Considerable improvement the persistence of previously demonstrated left mid and lower lung infiltrates, since prior study of 03/11/2020. LINER INSTALLER plans to continue to f/u and monitor Patients readiness for PO trials for diet texture upgrade. RN aware of recommendations, plan, and aspiration precautions sign posted above Patients HOB. RECOMMENDATIONS: 1. Continue Moist Puree with [place] Thick Liquids Diet via 1 to 1 careful handfeeding while implementing posted aspiration precautions - RD recommendations appreciated for diet texture/type 2. Patient requires oral hygiene BID + lip moisturizer. (2) Decubitus skin ulcer Assessment & Plan: Pt presented on admission with multiple pressure injuries. Full thickness Pressure injury Sacrococcygeal area. (L)4cm x (W)2.5cm. Base of wound is fatou with scattered slough ,which was easily removed with gentle friction. Wound is now fatou with 25% soft necrosis at distal base of wound. Small amt sanguineous exudate noted.No odor noted. Periwound erythematous and denuded. Two additional Pressure Injuries noted to R gluteal cheek.(Proximal) Base of wound is purple and indurated(L)3cm x (W)1.5cm. Surrounding erythematous and denuded skin (Distal) R gluteus(L)1.4cm x (W)0.6cm. Base of wound is purple, indurated with surrounding erythematous and denuded skin. DTPI L Gluteal cheek (L)1.5cm x (W)1.3cm. Base of wound is indurated, purple with surrounding non-blanching erythema. Additional scattered areas that are maroon in colour noted to L gluteal cheek. Lateral L Heel boggy with non-blanching erythema with delineated margins. (L) 4cm x (W)4.5cm. Lateral R Heel Boggy with non-Blanchable erythema with delineated margins(L) 2.5cm x (W)2.5cm. Tx.Plan: Cleanse Sacrococcygeal area with saline. Apply TheraHoney , Apply Moisture Barrier Paste to Sacrum, R and L Buttocks. Cover entire Area with Optifoam drsgs. Change every 3 days and prn. Apply Moisture Barrier Paste to R and L Buttocks . Cover with Optifoam drsgs. Changee very 3 days and prn. Apply Cavilon Skin Barrier to R and L Trochanteric areas. Cover with Optifoam drsg. Change every 7 days and prn. Apply Cavilon Skin Barrier to R and L Heels. Cover each heel with Optifoam drsg. Change every 7 days and prn. Reposition at least every 2hours or as tolerated. Off-load heels with Pillow. APM/ERIK Mattress. (3) Pneumonia Assessment & Plan: Lungs: There is mild left lower lobe infiltrate consistent with pneumonia. Pleural space: Unremarkable. No pneumothorax. Heart: The heart size is at the upper limits of normal. Mediastinum: Unremarkable. Bones/joints: Unremarkable. IMPRESSION: There is mild left lower lobe infiltrate consistent with pneumonia. worsening on bipap now will monitor closely intubated now 03/21 wean vent Continue weaning. Will hopefully be extubated potentially. Gases noted. (4) COPD (chronic obstructive pulmonary disease) Assessment & Plan: On vent support weaning Potential extubation soon not able to extubate as not safe with current status possible withdraw care as no function possible brain (5) Fever Eddie Perez Apr 06, 2020 14:07
--- NOTE | 2020-04-06 14:32 | NUR ---
NURSE NOTES: Dr Tucker present in the unit, updated on patient's condition and pending terminal extubation. No new verbal orders received at this time.
--- NOTE | 2020-04-06 16:00 | NUR ---
NURSE NOTES: Fara Owens from [facility] present in the unit to evaluate patient. Patient remains orally intubated at this time. Levophed infusing at 28mcg/min. Safety measures remains in place, will continue to monitor.
--- NOTE | 2020-04-06 16:24 | General Progress Note ---
Assessment/Plan Status: stable, progressing Assessment/Plan: Assessment - Resp failure - dysphagia - COPD - Anemia - leukocytosis - hypernatremia, improved - sepsis - hypothyroid - poor prognosis Recommendations - pulmonary f/u - D5W - abx - TF as tolerated - elevate HOB - follow labs and exam - abx - terminal extubation Subjective Allergies: Coded Allergies: PENICILLINS (Verified Allergy, Unknown, 03/11/20) Subjective Above noted seen in ICU on vent d/w RN terminal extubation planned Objective Last 24 Hour Vital Signs Date Time Temp Pulse Resp B/P (MAP) Pulse Ox O2 Delivery O2 Flow Rate FiO2 04/06/20 15:32 68 14 40 04/06/20 14:00 72 14 84/53 (63) 96 04/06/20 14:00 84/53 04/06/20 13:00 102/70 04/06/20 13:00 70 14 102/70 (81) 97 04/06/20 12:10 68 14 40 04/06/20 12:00 Mechanical Ventilator 04/06/20 12:00 40 04/06/20 12:00 97.8 68 14 96/65 (75) 97 04/06/20 12:00 96/65 04/06/20 12:00 68 96/65 04/06/20 12:00 69 04/06/20 11:30 88/62 04/06/20 11:30 67 14 87/57 (67) 98 04/06/20 11:00 67 14 95/62 (73) 98 04/06/20 10:30 67 14 93/66 (75) 98 04/06/20 10:00 68 14 92/67 (75) 98 04/06/20 10:00 92/67 04/06/20 09:45 68 14 96/69 (78) 98 04/06/20 09:30 68 14 94/67 (76) 98 04/06/20 09:15 69 14 92/64 (73) 99 04/06/20 09:00 68 14 91/62 (72) 98 04/06/20 09:00 91/62 04/06/20 08:30 69 14 96/68 (77) 98 04/06/20 08:15 97.3 69 14 101/70 (80) 99 04/06/20 08:00 69 14 89/68 (75) 98 04/06/20 08:00 Mechanical Ventilator 04/06/20 08:00 69 04/06/20 08:00 89/68 04/06/20 08:00 40 04/06/20 07:54 69 14 100 Mechanical Ventilator 40 69 14 100 04/06/20 07:00 73 14 88/63 (71) 96 04/06/20 07:00 88/63 04/06/20 06:00 87/63 04/06/20 06:00 96.1 82 14 102/71 (81) 97 04/06/20 05:30 71 14 100/74 (83) 97 04/06/20 05:00 71 14 86/62 (70) 96 04/06/20 05:00 86/60 04/06/20 04:30 65 14 102/70 (81) 98 04/06/20 04:00 63 04/06/20 04:00 63 14 97/67 (77) 98 04/06/20 04:00 97/67 04/06/20 04:00 Mechanical Ventilator 04/06/20 04:00 40 04/06/20 03:30 64 14 88/65 (73) 98 04/06/20 03:00 65 14 86/60 (69) 99 04/06/20 03:00 86/60 04/06/20 02:47 66 14 100 Mechanical Ventilator 40 66 14 100 04/06/20 02:30 68 14 94/64 (74) 98 04/06/20 02:00 76 14 127/92 (104) 100 04/06/20 02:00 127/92 04/06/20 01:02 95/68 04/06/20 01:00 68 14 99/71 (80) 98 04/06/20 00:30 66 14 106/69 (81) 99 04/06/20 00:00 96.0 64 14 95/68 (77) 99 04/06/20 00:00 Mechanical Ventilator 04/06/20 00:00 95/68 04/06/20 00:00 64 04/05/20 23:41 66 14 100 Mechanical Ventilator 40 66 14 100 04/05/20 23:00 65 14 102/74 (83) 99 04/05/20 23:00 102/74 04/05/20 22:30 69 14 100/74 (83) 97 04/05/20 22:00 75 14 114/80 (91) 95 04/05/20 22:00 114/80 04/05/20 21:30 89 14 144/100 (115) 95 04/05/20 21:00 56 14 49/31 (37) 100 04/05/20 21:00 49/31 04/05/20 20:30 58 14 120/80 (93) 100 04/05/20 20:00 40 04/05/20 20:00 59 04/05/20 20:00 Mechanical Ventilator 04/05/20 20:00 110/74 04/05/20 20:00 96.2 59 14 110/74 (86) 100 04/05/20 19:41 59 14 100 Mechanical Ventilator 40 60 14 100 04/05/20 19:00 58 14 113/73 (86) 99 04/05/20 19:00 113/73 04/05/20 18:30 58 14 109/72 (84) 99 04/05/20 18:00 129/79 04/05/20 18:00 61 14 129/79 (96) 100 04/05/20 17:48 102/74 04/05/20 17:30 63 14 102/74 (83) 99 04/05/20 17:15 164/98 04/05/20 17:00 72/54 04/05/20 17:00 64 14 143/91 (108) 100 04/05/20 16:30 60 14 99/72 (81) 100 Intake and Output 04/05/20 04/06/20 19:00 07:00 Intake Total 2066.56 ml 1561.87 ml Output Total 1645 ml 1500 ml Balance 421.56 ml 61.87 ml IV Total 2066.56 ml 1561.87 ml Tube Feeding 0 ml 0 ml Output Urine Total 1645 ml 1500 ml Laboratory Tests 04/06/20 03:45: White Blood Count 12.3H, Red Blood Count 3.40L, Hemoglobin 10.4L, Hematocrit 34.2L, Mean Corpuscular Volume 101H, Mean Corpuscular Hemoglobin 30.6, Mean Corpuscular Hemoglobin Concent 30.4L, Red Cell Distribution Width 14.9H, Platelet Count 243, Mean Platelet Volume 7.9, Neutrophils (%) (Auto) 73.4, Lymphocytes (%) (Auto) 19.5L, Monocytes (%) (Auto) 2.9, Eosinophils (%) (Auto) 3.6H, Basophils (%) (Auto) 0.7, Sodium Level 154#H, Potassium Level 3.3L, Chloride Level 118H, Carbon Dioxide Level 28, Anion Gap 8, Blood Urea Nitrogen 25H, Creatinine 1.1, Estimat Glomerular Filtration Rate 50.5, Glucose Level 91, Calcium Level 9.6 Height (Feet): 5 Height (Inches): 5.00 Weight (Pounds): 134 Objective Thin WW NCAT (+) ETT supple coarse BS RR abd soft NT ND no edema Douglas Tucker MD Apr 06, 2020 16:23
--- NOTE | 2020-04-06 18:00 | NUR ---
NURSE NOTES: Fara Mott from [facility] still present in the unit for patient evaluation. Patient remains orally intubated, Levophed infusing at 29mcg/min at this time, D5W infusing at 125ml/hr on the left upper arm PICC line. Patient left clean and dry. No BM noted. Will continue to monitor.
--- NOTE | 2020-04-06 18:33 | NUR ---
NURSE NOTES: Residual noted at 100ml; TF remains off.
--- NOTE | 2020-04-06 19:00 | NUR ---
NURSE NOTES: Dr Blake contacted to request to add neuro assessment on his progress notes per [facility]'s recommendation. Per Dr Blake, he is not in a place to access a computer at this time. Charge nurse notified and Fara Owens from [facility] who is present in the unit notified and made aware.
--- NOTE | 2020-04-06 19:07 | NUR ---
HAND-OFF: Report given to SHARATH Reyes. Endorsed plan of care. Fara Owens from [facility] still present in the unit, evaluating patient's chart as a potential donor.
--- NOTE | 2020-04-06 19:17 | NUR ---
NURSE NOTES: Dr Ledesma contacted regarding patient's potassium, new orders received, noted and endorsed to SHARATH Reyes and Fara Owens from [facility].
--- NOTE | 2020-04-06 19:30 | NUR ---
NURSE NOTES: Noted BP 86/61mmHg. Increase Levophed drip @ 30mcg/min. Will continue to monitor any change of condition.
--- NOTE | 2020-04-06 19:30 | NUR ---
NURSE NOTE : Received report from SHARATH Jose. Pt is resting on the bed and comatose. Pt is not respond to any stimuli; no gag reflex, pupils is dilatation and non reactive to light. Pt has ETT and orally intubated. Vent dependent and setting with AC: 14, T: 500, P:10, FiO2 40% and SaO2 99-100% noted. Given suction and oral care. Pt has NGT and in place and NPO. PT has Lt. upper arm PICC line and dressing is clean and dry. on running with Levophed drip @ 29mcg/min and D5W @ 125cc/hr. PT has Lainez cath and patent and yellowish urine urinated well. Dressing is clean and dry on wound area. on P-200 mattress for wound management. Fara Owens still present and recommended keep MAP over the 65. Placed fall precaution. Will continue to care plan.
[2020-04-06] MEDS: Dyna-Hex 2% Top Sol 2oz TOPIC SCH (19:41)
--- NOTE | 2020-04-06 21:00 | NUR ---
NURSE NOTES: No residual noted. Started NGT feeing with Jevity 1.2 @ 10cc/hr. Will continue to monitor.
--- NOTE | 2020-04-06 22:00 | NUR ---
NURSE NOTES: Pt is resting on the bed and comatose. Noted BP 100/67mmHg and on running with Levophed drip @ 30mcg/min maximum dose. On running with NGT feeding with Jevity 1.2 @ 10cc/hr and no residual noted. Given suction and oral care. Changed position. Will continue to care plan.
[2020-04-07] VITALS (42 sets, daily range): BP systolic 86–124; BP diastolic 15–85
--- NOTE | 2020-04-07 | NUR ---
NURSE NOTES: Suction and oral care was done. On youth nutritional monitor with SR. BP maintains with Levophed drip @ 30mcg/min. BP checked 107/74mmHg. Changed position. Will continue to care plan.
[2020-04-07] MEDS: Vancomycin 1 GM in NS 275 ML IVPB SCH ×2 (01:32→14:03)
--- NOTE | 2020-04-07 02:00 | NUR ---
NURSE NOTES: Pt is resting on the bed and comatose. No response to any stimulation. No gag reflex, No pupil response. No movement. noted. No fever. Keep MAP over the 65. On running with Levophed drip @ 30mcg/min. Changed position. Provided suction and oral care. Will continue to monitor any change of condition.
[2020-04-07] MEDS: Albuterol 90mcg Inhaler 8gm INH SCH ×6 (03:10→23:26)
--- NOTE | 2020-04-07 04:00 | NUR ---
NURSE NOTES: Morning care was done. Cleaned Pt and applied lotion and cream. Changed wound dressing. Lt. upper arm PICC line dressing changed. No sign of infiltration. On NGT feeding @ 10cc/hr but still noted residual 50cc. Hold NGT feeding. BP maintains with Levophed drip @ 30mcg/hr and keep MAP over the 65. Suction and oral care was done. Turn and reposition. placed fall precaution. Will continue to care plan .
--- NOTE | 2020-04-07 06:00 | NUR ---
NURSE NOTES: Suction was done. Given oral care. Noted good urine output via Lainez cath. Hold NGT feeding. Remains Levophed drip @ 30mcg/min and D5W @ 125cc/hr. Repositioned. Will continue to care plan.
--- NOTE | 2020-04-07 07:15 | NUR ---
HAND-OFF: Report given to SHARATH Marx. Pt is resting on the bed and comatose. SaO2 100% with current Vent setting. On running with Levophed drip @ 30mcg/min.
--- NOTE | 2020-04-07 07:16 | NUR ---
NURSE NOTES: Report received from SHARATH Reyes. Pt is comatose. No response to pain. No gag reflex. No eye opening. Pupils dilated +5-6. SR on residential monitor. ETT 7.5/23cm at lip line. AC 14, TV 500, P 10, FiO2 40%. O2 sat 97-98% on residential monitor. No respiratory distress noted. Left NGT in place draining to gravity. Feeding held due to high residual since 4AM as per assistant casino shift manager. Will check residual. Lainez in place pale urine draining to gravity. YUMIKO PICC line patent and asymptomatic. Levo is running at 30mcg/min. D5W is running at 50cc/hr. Bed in lowest position. Side rails up x3. Will resume plan of care. Addendum: 04/07/20 at 1058 by DIXIE AWAN RN RN NURSE NOTES: Report received from SHARATH Reyes. Pt is comatose. No response to pain. No gag reflex. No eye opening. Pupils dilated +5-6. SR on residential monitor. ETT 7.5/23cm at lip line. AC 14, TV 500, P 10, FiO2 40%. O2 sat 97-98% on residential monitor. No respiratory distress noted. Left NGT in place draining to gravity. Feeding held due to high residual since 4AM as per assistant casino shift manager. Will check residual. Lainez in place pale urine draining to gravity. YUMIKO PICC line patent and asymptomatic. Levo is running at 30mcg/min. D5W is running at 125 cc/hr. Bed in lowest position. Side rails up x3. Will resume plan of care. Addendum: 04/08/20 at 0743 by DIXIE AWAN RN RN Late Entry NURSE NOTES: Report received from SHARATH Reyes. Pt is comatose. No response to pain. No gag reflex. No eye opening. Pupils dilated +5-6. SR on residential monitor. ETT 7.5/23cm at lip line. AC 14, TV 500, P 10, FiO2 40%. O2 sat 97-98% on residential monitor. No respiratory distress noted. Left NGT in place. Feeding held due to high residual since 4AM as per assistant casino shift manager. Will check residual. Lainez in place pale urine draining to gravity. YUMIKO PICC line patent and asymptomatic. Levo is running at 30mcg/min. D5W is running at 50cc/hr. Bed in lowest position. Side rails up x3. Will resume plan of care. Addendum: 04/07/20 at 1058 by DIXIE AWAN RN RN NURSE NOTES: Report received from SHARATH Reyes. Pt is comatose. No response to pain. No gag reflex. No eye opening. Pupils dilated +5-6. SR on residential monitor. ETT 7.5/23cm at lip line. AC 14, TV 500, P 10, FiO2 40%. O2 sat 97-98% on residential monitor. No respiratory distress noted. Left NGT in place draining to gravity. Feeding held due to high residual since 4AM as per assistant casino shift manager. Will check residual. Lainez in place pale urine draining to gravity. YUMIKO PICC line patent and asymptomatic. Levo is running at 30mcg/min. D5W is running at 125 cc/hr. Bed in lowest position. Side rails up x3. Will resume plan of care.
--- NOTE | 2020-04-07 08:20 | NUR ---
NURSE NOTES: Orders for lab from Dr Ledesma received, noted, and carried out. Dr Ledesma here to see the patient. Updated him with patient's current condition.
[2020-04-07] MEDS: Pantoprazole Inj IVP SCH (08:21)
[2020-04-07] MEDS: Multivitamins W/Minerals 15 ML UDC NG SCH (08:21)
[2020-04-07] MEDS: Lactulose 20gm/30ml UDC NG SCH ×3 (08:21→17:33)
[2020-04-07] MEDS: Heparin 5000 units/ml inj SUBQ SCH ×2 (08:22→20:23)
[2020-04-07] MEDS: Midodrine 10mg tab NG SCH ×3 (08:22→17:33)
[2020-04-07] MEDS: Ascorbic Acid 500mg tab NG SCH (08:22)
[2020-04-07] MEDS: Zinc Sulfate 220mg NG SCH (08:22)
--- NOTE | 2020-04-07 09:31 | General Progress Note ---
Assessment/Plan Problem List: (1) COPD (chronic obstructive pulmonary disease) ICD Codes: J44.9 - Chronic obstructive pulmonary disease, unspecified SNOMED: 29768626 Qualifiers: Qualified Codes: J44.9 - Chronic obstructive pulmonary disease, unspecified (2) Pneumonia ICD Codes: J18.9 - Pneumonia, unspecified organism SNOMED: 576545616 Qualifiers: Qualified Codes: J18.9 - Pneumonia, unspecified organism (3) Fever ICD Codes: R50.9 - Fever, unspecified SNOMED: 009197421 Status: stable, progressing Assessment/Plan: clinically brain based on clinical exam and EEG(no activity). Await confirmation by 2nd MD. Then terminal extubation. Subjective ROS Limited/Unobtainable: Yes Constitutional: Reports: no symptoms HEENT: Reports: no symptoms Cardiovascular: Reports: no symptoms Respiratory: Reports: no symptoms Gastrointestinal/Abdominal: Reports: no symptoms Genitourinary: Reports: no symptoms Neurologic/Psychiatric: Reports: no symptoms Endocrine: Reports: no symptoms Hematologic/Lymphatic: Reports: no symptoms Allergies: Coded Allergies: PENICILLINS (Verified Allergy, Unknown, 03/11/20) All Systems: reviewed and negative except above Subjective unresponsive. no events. on the vent. full support. breathing 14. ac 14. no gag. pupils fixed and unresponsive. no response to painful stimuli. EEG with NO activity [facility] evaluating pt for organ donation Objective Last 24 Hour Vital Signs Date Time Temp Pulse Resp B/P (MAP) Pulse Ox O2 Delivery O2 Flow Rate FiO2 04/07/20 08:00 97.4 95 14 110/77 (88) 100 04/07/20 08:00 Mechanical Ventilator 04/07/20 07:53 96 14 100 Mechanical Ventilator 40 96 14 40 04/07/20 07:30 97 14 108/79 (89) 100 04/07/20 07:07 113/78 04/07/20 07:00 113/74 04/07/20 07:00 96 14 113/78 (90) 100 04/07/20 06:00 92 14 109/82 (91) 100 04/07/20 06:00 109/82 04/07/20 05:00 111/83 04/07/20 05:00 90 14 111/83 (92) 100 04/07/20 04:23 90 04/07/20 04:00 102/74 04/07/20 04:00 97.8 82 14 102/74 (83) 99 04/07/20 04:00 Mechanical Ventilator 04/07/20 04:00 40 04/07/20 03:10 82 14 99 Mechanical Ventilator 40 72 14 100 04/07/20 03:00 81 14 124/85 (98) 99 04/07/20 03:00 124/85 04/07/20 02:30 89/54 04/07/20 02:00 74 14 100/65 (77) 99 04/07/20 02:00 100/65 04/07/20 01:00 94/63 04/07/20 01:00 75 14 94/63 (73) 97 04/07/20 00:00 73 04/07/20 00:00 97.6 76 14 107/74 (85) 97 04/07/20 00:00 107/74 04/07/20 00:00 40 04/07/20 00:00 Mechanical Ventilator 04/06/20 23:00 71 14 103/68 (80) 99 04/06/20 23:00 103/68 04/06/20 22:43 72 14 99 Mechanical Ventilator 40 72 14 100 04/06/20 22:00 100/67 04/06/20 22:00 71 14 100/67 (78) 99 04/06/20 21:46 112/75 04/06/20 21:30 73 14 112/75 (87) 99 04/06/20 21:00 70 14 95/66 (76) 99 20 21:00 95/66 04/06/20 20:45 71 14 102/67 (79) 98 04/06/20 20:30 70 14 97/68 (78) 98 04/06/20 20:15 71 14 98/65 (76) 98 04/06/20 20:00 70 14 94/63 (73) 99 04/06/20 20:00 97.8 70 14 94/63 (73) 99 04/06/20 20:00 40 04/06/20 20:00 94/63 04/06/20 20:00 Mechanical Ventilator 04/06/20 20:00 72 04/06/20 19:45 72 14 96/66 (76) 99 04/06/20 19:30 72 14 86/61 (69) 99 04/06/20 19:30 86/61 04/06/20 19:16 73 14 100 Mechanical Ventilator 40 72 14 100 04/06/20 19:00 91/61 04/06/20 19:00 73 14 91/61 (71) 98 04/06/20 18:15 69 14 95/64 (74) 99 20 18:00 70 14 93/64 (74) 98 04/06/20 18:00 93/64 04/06/20 17:30 69 14 89/59 (69) 99 04/06/20 17:15 71 14 83/59 (67) 98 04/06/20 17:00 93/62 04/06/20 17:00 73 14 93/62 (72) 98 04/06/20 16:40 93/64 04/06/20 16:00 97.4 68 14 93/64 (74) 98 04/06/20 16:00 40 04/06/20 16:00 93/64 04/06/20 16:00 68 04/06/20 16:00 Mechanical Ventilator 04/06/20 15:32 68 14 40 04/06/20 15:30 68 17 103/67 (79) 98 04/06/20 15:00 100/68 04/06/20 15:00 66 14 100/68 (79) 98 04/06/20 14:00 72 14 84/53 (63) 96 04/06/20 14:00 84/53 04/06/20 13:00 102/70 04/06/20 13:00 70 14 102/70 (81) 97 04/06/20 12:10 68 14 40 04/06/20 12:00 Mechanical Ventilator 04/06/20 12:00 40 04/06/20 12:00 97.8 68 14 96/65 (75) 97 04/06/20 12:00 96/65 04/06/20 12:00 68 96/65 04/06/20 12:00 69 04/06/20 11:30 88/62 04/06/20 11:30 67 14 87/57 (67) 98 04/06/20 11:00 67 14 95/62 (73) 98 04/06/20 10:30 67 14 93/66 (75) 98 04/06/20 10:00 68 14 92/67 (75) 98 04/06/20 10:00 92/67 04/06/20 09:45 68 14 96/69 (78) 98 Intake and Output 04/06/20 04/07/20 19:00 07:00 Intake Total 2175.2800 ml 2502.810 ml Output Total 2345 ml 2625 ml Balance -169.7200 ml -122.190 ml IV Total 2025.2800 ml 2432.810 ml Tube Feeding 0 ml 70 ml Other 150 ml Output Urine Total 2345 ml 2625 ml Laboratory Tests 04/07/20 09:00: White Blood Count [Pending], Red Blood Count [Pending], Hemoglobin [Pending], Hematocrit [Pending], Mean Corpuscular Volume [Pending], Mean Corpuscular Hemoglobin [Pending], Mean Corpuscular Hemoglobin Concent [Pending], Red Cell Distribution Width [Pending], Platelet Count [Pending], Mean Platelet Volume [ Pending], Neutrophils (%) (Auto) [Pending], Lymphocytes (%) (Auto) [Pending], Monocytes (%) (Auto) [Pending], Eosinophils (%) (Auto) [Pending], Basophils (%) (Auto) [Pending], Sodium Level [Pending], Potassium Level [Pending], Chloride Level [Pending], Carbon Dioxide Level [Pending], Blood Urea Nitrogen [Pending], Creatinine [Pending], Estimat Glomerular Filtration Rate [Pending], Glucose Level [Pending], Calcium Level [Pending], Total Bilirubin [Pending], Aspartate Amino Transf (AST/SGOT) [Pending], Alanine Aminotransferase (ALT/SGPT) [Pending] , Alkaline Phosphatase [Pending], Total Protein [Pending], Albumin [Pending], Globulin [Pending] Height (Feet): 5 Height (Inches): 5.00 Weight (Pounds): 131 Objective General Appearance: WD/WN, unresponsive intubated Neck: non-tender Cardiovascular: normal rate, regular rhythm Respiratory/Chest: chest wall non-tender, lungs clear, normal breath sounds Abdomen: normal bowel sounds, non tender, soft, no organomegaly Edema: no edema noted Arm (L), no edema noted Arm (R), no edema noted Leg (L), no edema noted Leg (R), no edema noted Pedal (L), no edema noted Pedal (R), no edema noted Generalized Neurologic: unresponsive Isaak Ledesma MD Apr 07, 2020 09:31
[2020-04-07 09:35] LABS: BASOPHILS % (AUTO) 0.8 % (0.0-2.0); HEMATOCRIT 31.6 % (37.0-47.0); HEMOGLOBIN 9.5 G/DL (12.0-16.0); LYMPHOCYTES % (AUTO) 17.6 % (20.0-45.0); MEAN CORPUSCULAR VOLUME 101 FL (80-99); MONOCYTES % (AUTO) 3.2 % (1.0-10.0); NEUTROPHILS % (AUTO) 75.4 % (45.0-75.0); PLATELET COUNT 156 K/UL (150-450); RED BLOOD COUNT 3.12 M/UL (4.20-5.40); RED CELL DISTRIBUTION WIDTH 15.2 % (11.6-14.8); WHITE BLOOD COUNT 11.6 K/UL (4.8-10.8)
--- NOTE | 2020-04-07 09:53 | General Progress Note ---
Assessment/Plan Status: stable, progressing Assessment/Plan: Assessment - Resp failure - dysphagia - COPD - Clinical brain - Anemia - leukocytosis - hypernatremia, improved - sepsis - hypothyroid - poor prognosis Recommendations - pulmonary f/u - D5W - abx - TF as tolerated - elevate HOB - follow labs and exam - abx - terminal extubation Subjective Allergies: Coded Allergies: PENICILLINS (Verified Allergy, Unknown, 03/11/20) Subjective Above noted seen in ICU on vent d/w RN terminal extubation planned Objective Last 24 Hour Vital Signs Date Time Temp Pulse Resp B/P (MAP) Pulse Ox O2 Delivery O2 Flow Rate FiO2 04/07/20 09:30 86 14 105/30 (55) 100 04/07/20 09:00 89 14 103/28 (53) 100 04/07/20 09:00 97 14 108/79 (89) 100 04/07/20 08:30 92 14 86/65 (72) 100 04/07/20 08:00 40 04/07/20 08:00 97.4 95 14 110/77 (88) 100 04/07/20 08:00 Mechanical Ventilator 04/07/20 07:53 96 14 100 Mechanical Ventilator 40 96 14 40 04/07/20 07:30 97 14 108/79 (89) 100 04/07/20 07:07 113/78 04/07/20 07:00 113/74 04/07/20 07:00 96 14 113/78 (90) 100 04/07/20 06:00 92 14 109/82 (91) 100 04/07/20 06:00 109/82 04/07/20 05:00 111/83 04/07/20 05:00 90 14 111/83 (92) 100 04/07/20 04:23 90 04/07/20 04:00 102/74 04/07/20 04:00 97.8 82 14 102/74 (83) 99 04/07/20 04:00 Mechanical Ventilator 04/07/20 04:00 40 04/07/20 03:10 82 14 99 Mechanical Ventilator 40 72 14 100 04/07/20 03:00 81 14 124/85 (98) 99 04/07/20 03:00 124/85 04/07/20 02:30 89/54 04/07/20 02:00 74 14 100/65 (77) 99 04/07/20 02:00 100/65 04/07/20 01:00 94/63 04/07/20 01:00 75 14 94/63 (73) 97 04/07/20 00:00 73 04/07/20 00:00 97.6 76 14 107/74 (85) 97 04/07/20 00:00 107/74 04/07/20 00:00 40 04/07/20 00:00 Mechanical Ventilator 04/06/20 23:00 71 14 103/68 (80) 99 04/06/20 23:00 103/68 04/06/20 22:43 72 14 99 Mechanical Ventilator 40 72 14 100 04/06/20 22:00 100/67 04/06/20 22:00 71 14 100/67 (78) 99 04/06/20 21:46 112/75 04/06/20 21:30 73 14 112/75 (87) 99 04/06/20 21:00 70 14 95/66 (76) 99 04/06/20 21:00 95/66 04/06/20 20:45 71 14 102/67 (79) 98 04/06/20 20:30 70 14 97/68 (78) 98 04/06/20 20:15 71 14 98/65 (76) 98 04/06/20 20:00 70 14 94/63 (73) 99 04/06/20 20:00 97.8 70 14 94/63 (73) 99 04/06/20 20:00 40 04/06/20 20:00 94/63 04/06/20 20:00 Mechanical Ventilator 04/06/20 20:00 72 04/06/20 19:45 72 14 96/66 (76) 99 20 19:30 72 14 86/61 (69) 99 20 19:30 86/61 04/06/20 19:16 73 14 100 Mechanical Ventilator 40 72 14 100 04/06/20 19:00 91/61 04/06/20 19:00 73 14 91/61 (71) 98 20 18:15 69 14 95/64 (74) 99 20 18:00 70 14 93/64 (74) 98 20 18:00 93/64 04/06/20 17:30 69 14 89/59 (69) 99 7/3/20 17:15 71 14 83/59 (67) 98 04/06/20 17:00 93/62 04/06/20 17:00 73 14 93/62 (72) 98 04/06/20 16:40 93/64 04/06/20 16:00 97.4 68 14 93/64 (74) 98 04/06/20 16:00 40 04/06/20 16:00 93/64 04/06/20 16:00 68 04/06/20 16:00 Mechanical Ventilator 04/06/20 15:32 68 14 40 04/06/20 15:30 68 17 103/67 (79) 98 04/06/20 15:00 100/68 04/06/20 15:00 66 14 100/68 (79) 98 04/06/20 14:00 72 14 84/53 (63) 96 04/06/20 14:00 84/53 04/06/20 13:00 102/70 04/06/20 13:00 70 14 102/70 (81) 97 04/06/20 12:10 68 14 40 04/06/20 12:00 Mechanical Ventilator 04/06/20 12:00 40 04/06/20 12:00 97.8 68 14 96/65 (75) 97 04/06/20 12:00 96/65 04/06/20 12:00 68 96/65 04/06/20 12:00 69 04/06/20 11:30 88/62 04/06/20 11:30 67 14 87/57 (67) 98 04/06/20 11:00 67 14 95/62 (73) 98 04/06/20 10:30 67 14 93/66 (75) 98 04/06/20 10:00 68 14 92/67 (75) 98 04/06/20 10:00 92/67 Intake and Output 04/06/20 04/07/20 19:00 07:00 Intake Total 2175.2800 ml 2502.810 ml Output Total 2345 ml 2625 ml Balance -169.7200 ml -122.190 ml IV Total 2025.2800 ml 2432.810 ml Tube Feeding 0 ml 70 ml Other 150 ml Output Urine Total 2345 ml 2625 ml Laboratory Tests 04/07/20 09:00: White Blood Count 11.6H, Red Blood Count 3.12L, Hemoglobin 9.5L, Hematocrit 31.6L, Mean Corpuscular Volume 101H, Mean Corpuscular Hemoglobin 30.5, Mean Corpuscular Hemoglobin Concent 30.2L, Red Cell Distribution Width 15.2H, Platelet Count 156, Mean Platelet Volume 8.4, Neutrophils (%) (Auto) 75.4H, Lymphocytes (%) (Auto) 17.6L, Monocytes (%) (Auto) 3.2, Eosinophils (%) (Auto) 3.0, Basophils (%) (Auto) 0.8, Sodium Level [Pending], Potassium Level [Pending] , Chloride Level [Pending], Carbon Dioxide Level [Pending], Blood Urea Nitrogen [Pending], Creatinine [Pending], Estimat Glomerular Filtration Rate [Pending], Glucose Level [Pending], Calcium Level [Pending], Total Bilirubin [Pending], Aspartate Amino Transf (AST/SGOT) [Pending], Alanine Aminotransferase (ALT/SGPT ) [Pending], Alkaline Phosphatase [Pending], Total Protein [Pending], Albumin [ Pending], Globulin [Pending] Height (Feet): 5 Height (Inches): 5.00 Weight (Pounds): 131 Objective Thin WW NCAT (+) ETT, NGT supple coarse BS RR abd soft NT ND no edema Douglas Tucker MD Apr 07, 2020 09:53
[2020-04-07 10:29] LABS: ALANINE AMINOTRANSFERASE 33 U/L (12-78); ALBUMIN 0.9 G/DL (3.4-5.0); ALBUMIN/GLOBULIN RATIO 0.2 (1.0-2.7); ALKALINE PHOSPHATASE 148 U/L (46-116); ANION GAP 8 mmol/L (5-15); ASPARTATE AMINO TRANSFERASE 69 U/L (15-37); BILIRUBIN,TOTAL 0.3 MG/DL (0.2-1.0); BLOOD UREA NITROGEN 24 mg/dL (7-18); CALCIUM 8.5 MG/DL (8.5-10.1); CARBON DIOXIDE 24 MMOL/L (21-32); CHLORIDE 107 MMOL/L (98-107); CREATININE 1.2 MG/DL (0.55-1.30); POTASSIUM 3.3 MMOL/L (3.5-5.1); SODIUM 139 MMOL/L (136-145)
--- NOTE | 2020-04-07 11:30 | NUR ---
NURSE NOTES: Called and left a message to Dr Ledesma regarding low K 3.3 and elevated glucose level 466 from lab draw. Also notified him that finger stick BS was 118. Awaiting call back for new orders.
[2020-04-07] MEDS: Phenylephrine 50 MG in D5W 245 ML IV SCH (11:40)
[2020-04-07] MEDS: Cefepime HCl 2 GM in D5W 55 ML IVPB SCH ×2 (11:46→23:36)
--- NOTE | 2020-04-07 11:55 | NUR ---
NURSE NOTES: Turned and repositioned patient. Oral care done. Oral temp 98.0. Feeding residual 20cc. Flush NGT with 30cc. Will continue to monitor.
--- NOTE | 2020-04-07 12:47 | NUR ---
NURSE NOTES: Dr Ledesma called back. Order for K-dur received, noted, and carried out.
--- NOTE | 2020-04-07 14:00 | NUR ---
NURSE NOTES: Double concentration Levophed is running at 30mcg/min. BP 97/21. Will keep the same rate.
[2020-04-07] MEDS ORDERED: Sterile Water Irrig 1000ml IRRIG ONE (14:02)
[2020-04-07] MEDS ORDERED: D5W 275ml ONE (14:02)
[2020-04-07] MEDS ORDERED: NS 275ml ONE (14:02)
[2020-04-07] MEDS ORDERED: NS 500ML ONE (14:51)
--- NOTE | 2020-04-07 14:57 | NUR ---
CASE MANAGEMENT:REVIEW 04/07/20 SI: PNA. ACUTE RESPIRATORY FAILURE T 98 HR 85 RR 14 B/P 101/49 SATS 98% ON MECH VENT FIO2 40 LABS: WBC 11.6 K 3.3 BUN 24 GLU 466 AST 69 ALP 148 IS: IV VANCOMYCIN Q12H IV CEFEPIME Q12H LEVOPHED GTT IV PROTONIX QD LACTULOSE NG TID HEPARIN SUBQ Q12H ALBUTEROL INH Q4HRS RTC : ICU STATUS DCP: FROM [facility]
--- NOTE | 2020-04-07 15:00 | NUR ---
NURSE NOTES: Hortencia from [facility] was here to assess the patient. Called and left a message to Dr Blake to leave a note to do clinical assessment for patient's condition since [facility] needs notes from two doctors regarding patient's neuro condition.
[2020-04-07] MEDS: Norepinephrine Bitartrate 16 MG in D5W 500ml 484 ML IV SCH (16:20)
--- NOTE | 2020-04-07 18:15 | NUR ---
NURSE NOTES: Cleaned and repositioned patient. BP 117/21, HR 85, O2 sat 98%. No respiratory distress noted. Still comatose with no gag reflex noted. Will continue to monitor.
--- NOTE | 2020-04-07 19:20 | NUR ---
HAND-OFF: Report given to SHARATH Reyes.
--- NOTE | 2020-04-07 19:30 | NUR ---
NURSE NOTES: Received report from SHARATH Marx. Pt is resting on the bed and comatose. Pt is not respond to any stimuli; no gag reflex, pupils is dilatate +6. Pt has ETT and orally intubated. Vent dependent and setting with AC: 14, T: 500, P:10, FiO2 40% and SaO2 98% noted. Given suction and oral care. Pt has NGT and on running with Jevity 1.2 @ 20cc/hr. PT has Lt. upper arm PICC line and dressing is clean and dry. On running with Levophed drip @ 30mcg/min and D5W @ 125cc/hr. PT has Lainez cath and patent and yellowish urine urinated well. Dressing is clean and dry on wound area. on P-200 mattress for wound management. No fever. Placed fall precaution. Will continue to care plan.
--- NOTE | 2020-04-07 19:56 | Pulmonolgy Critical Care Note ---
Critical Care - Asmt/Plan Assessment/Plan: Pulmonary CCM Progress Note Assessment/Plan IMPRESSION: 1. COPD 2. Hypercapnia and hypoxemia. 3. Pneumonia,snf 4. Hypothyroidism. 5. History of allergies. 6. Severe protein-calorie malnutrition. 7. Mild leukocytosis. 8. acute respiratory failure/ failed extubation 9. pulmonary congestion 10. hypernatremia 11. brain , [facility] following care noted brain respiratory care as is on pressors reviewed changes; monitor secretions- discussed care Ventilatory support as is monitor for CO2 retention and congestion maintain meds DVT prophylaxis; supportive care as is off load aspiration precautions position change and off load oxygen therapy as is terminal extubation medications/laboratory data/nursing notes/ICU care reviewed in detail note reviewed and edited care discussed with RN and RT ICU time spent >40 minutes Interval Events: clinically brain EEG noted ROS Limited/Unobtainable: Yes Condition: critical EKG Rhythm: Sinus Rhythm ETT: 7.5 Vital Signs Noted Labs: noted Objective: GENERAL: An ill-appearing female. NAD on Vent NECK: Supple. No adenopathy. LUNGS: Coarse breath sounds. Moderate air entry. ETT in place; no rhonchi or wheeze CARDIAC: S1, S2. Regular rate and rhythm without murmur. ABDOMEN: Soft, nontender, nondistended. feeding tube EXTREMITIES: No cyanosis, clubbing, or edema. obtunded on the vent reviewed and edited Micro: Microbiology Date/Time Source Procedure Growth Status 04/03/20 13:00 Blood Blood Culture - Preliminary NO GROWTH AFTER 48 HOURS Resulted 04/03/20 15:00 Sputum Gram Stain - Final Complete 04/03/20 15:00 Sputum Sputum Culture - Final NORMAL UPPER RESPIRATORY ALEXANDRO PRESENT Complete 04/03/20 13:00 Urine,Clean Catch Urine Culture - Final Delfina Albicans Complete Critical Care - Objective Last 24 Hour Vital Signs Date Time Temp Pulse Resp B/P (MAP) Pulse Ox O2 Delivery O2 Flow Rate FiO2 04/07/20 19:07 85 14 100 Mechanical Ventilator 40 84 14 40 04/07/20 19:00 86 14 101/18 (45) 97 04/07/20 19:00 108/19 04/07/20 18:30 90 14 90/28 (48) 98 04/07/20 18:00 91 14 117/21 (53) 98 04/07/20 18:00 117/21 04/07/20 17:30 88 14 101/23 (49) 98 04/07/20 17:00 102/49 04/07/20 17:00 97.9 82 14 102/49 (66) 98 04/07/20 16:30 82 14 106/41 (62) 98 04/07/20 16:20 104/20 04/07/20 16:00 40 04/07/20 16:00 81 14 104/20 (48) 99 04/07/20 16:00 102/18 04/07/20 16:00 Mechanical Ventilator 04/07/20 15:33 81 14 100 Mechanical Ventilator 40 81 14 40 04/07/20 15:30 81 14 97/20 (45) 99 04/07/20 15:00 81 14 97/15 (42) 99 04/07/20 15:00 97/15 04/07/20 14:30 81 14 101/44 (63) 100 04/07/20 14:00 81 14 101/44 (63) 100 04/07/20 14:00 101/44 04/07/20 13:30 80 14 90/18 (42) 100 04/07/20 13:00 83 14 109/29 (55) 100 04/07/20 13:00 109/29 04/07/20 12:43 83 04/07/20 12:30 83 14 100/20 (46) 98 04/07/20 12:06 83 04/07/20 12:00 98.0 85 14 101/49 (66) 98 04/07/20 12:00 111/58 04/07/20 12:00 Mechanical Ventilator 04/07/20 12:00 40 04/07/20 11:47 98/43 04/07/20 11:30 84 14 98/43 (61) 100 04/07/20 11:30 85 14 100 Mechanical Ventilator 40 86 14 40 04/07/20 11:00 98/52 04/07/20 11:00 89 14 98/52 (67) 100 04/07/20 10:30 89 14 118/26 (56) 99 04/07/20 10:00 94 14 92/55 (67) 98 04/07/20 10:00 118/26 04/07/20 09:30 86 14 105/30 (55) 100 04/07/20 09:00 89 14 103/28 (53) 100 04/07/20 09:00 109/57 04/07/20 09:00 97 14 108/79 (89) 100 04/07/20 08:30 92 14 86/65 (72) 100 04/07/20 08:00 40 04/07/20 08:00 110/77 04/07/20 08:00 97.4 95 14 110/77 (88) 100 04/07/20 08:00 Mechanical Ventilator 04/07/20 07:53 96 14 100 Mechanical Ventilator 40 96 14 40 04/07/20 07:38 95 04/07/20 07:30 97 14 108/79 (89) 100 04/07/20 07:07 113/78 04/07/20 07:00 113/74 04/07/20 07:00 96 14 113/78 (90) 100 04/07/20 06:00 92 14 109/82 (91) 100 04/07/20 06:00 109/82 04/07/20 05:00 111/83 04/07/20 05:00 90 14 111/83 (92) 100 04/07/20 04:23 90 04/07/20 04:00 102/74 04/07/20 04:00 97.8 82 14 102/74 (83) 99 04/07/20 04:00 Mechanical Ventilator 04/07/20 04:00 40 04/07/20 03:10 82 14 99 Mechanical Ventilator 40 72 14 100 04/07/20 03:00 81 14 124/85 (98) 99 04/07/20 03:00 124/85 04/07/20 02:30 89/54 04/07/20 02:00 74 14 100/65 (77) 99 04/07/20 02:00 100/65 04/07/20 01:00 94/63 04/07/20 01:00 75 14 94/63 (73) 97 04/07/20 00:00 73 04/07/20 00:00 97.6 76 14 107/74 (85) 97 04/07/20 00:00 107/74 04/07/20 00:00 40 04/07/20 00:00 Mechanical Ventilator 04/06/20 23:00 71 14 103/68 (80) 99 04/06/20 23:00 103/68 04/06/20 22:43 72 14 99 Mechanical Ventilator 40 72 14 100 04/06/20 22:00 100/67 04/06/20 22:00 71 14 100/67 (78) 99 04/06/20 21:46 112/75 04/06/20 21:30 73 14 112/75 (87) 99 04/06/20 21:00 70 14 95/66 (76) 99 04/06/20 21:00 95/66 04/06/20 20:45 71 14 102/67 (79) 98 04/06/20 20:30 70 14 97/68 (78) 98 04/06/20 20:15 71 14 98/65 (76) 98 04/06/20 20:00 70 14 94/63 (73) 99 04/06/20 20:00 97.8 70 14 94/63 (73) 99 04/06/20 20:00 40 04/06/20 20:00 94/63 04/06/20 20:00 Mechanical Ventilator 04/06/20 20:00 72 Critical Care - Subjective ROS Limited/Unobtainable: No Condition: critical FI02: 40 Vent Support Breath Rate: 14 Vent Support Mode: AC Vent Tidal Volume: 500 Sputum Amount: None PEEP: 10.0 PIP: 28 Tube Feeding Amount: 20 I&O: Intake and Output 04/06/20 04/07/20 19:00 07:00 Intake Total 2175.2800 ml 2502.810 ml Output Total 2345 ml 2625 ml Balance -169.7200 ml -122.190 ml IV Total 2025.2800 ml 2432.810 ml Tube Feeding 0 ml 70 ml Other 150 ml Output Urine Total 2345 ml 2625 ml ET-Tube: 7.5 ET Position: 23 Juan Tate MD Apr 07, 2020 19:56
--- NOTE | 2020-04-07 20:00 | NUR ---
NURSE NOTES: Noted BP 122/54mmHg and HR: 86's with SR. Decrease Levophed drip @ 29mcg/min. Will continue to monitor any change of condition.
[2020-04-07] MEDS: Dyna-Hex 2% Top Sol 2oz TOPIC SCH (20:05)
--- NOTE | 2020-04-07 21:00 | NUR ---
NURSE NOTES: Noted residual 100cc via NGT. Held the NGT feeding. Will continue to monitor any change of condition.
--- NOTE | 2020-04-07 22:00 | NUR ---
NURSE NOTES: Pt is resting on the bed and comatose. No sign of significant change of condition. Suction and oral care was done. Turn and repositio. Will continue to monitor any change of condition.
--- NOTE | 2020-04-07 22:40 | NUR ---
NURSE NOTES: Get call from [facility] who is [facility] and f/u Patient's condition. He recommended to maintain patient condition and call them if Pt has change of condition.
[2020-04-08] VITALS (51 sets, daily range): BP systolic 89–137; BP diastolic 43–92
--- NOTE | 2020-04-08 | NUR ---
NURSE NOTES: Suction and oral care was done. SaO2 99% with current Vent setting. Changed position. Still noted residual 50cc and held NGT feeding. Will continue to monitor any change of condition.
[2020-04-08] MEDS: Norepinephrine Bitartrate 16 MG in D5W 500ml 484 ML IV SCH ×3 (01:31→21:40)
--- NOTE | 2020-04-08 01:31 | NUR ---
NURSE NOTES: Noted BP 123/56mmHg and HR: 103's with ST. Decrease Levophed drip to 28mcg/min. Will continue to monitor any change of condition.
[2020-04-08] MEDS: Vancomycin 1 GM in NS 275 ML IVPB SCH (01:59)
--- NOTE | 2020-04-08 02:00 | NUR ---
NURSE NOTES: Pt is resting on the bed and comatose. No response any stimulation. Pupil is dilatated and no gag reflex noted. SaO2 98% with current Vent setting. on cardiac cath technologist with SR. On running with Levophed drip 2 28mcg/min. Turn and reposition. Will continue to monitor any change of condition.
[2020-04-08] MEDS: Albuterol 90mcg Inhaler 8gm INH SCH ×6 (03:22→22:54)
--- NOTE | 2020-04-08 04:00 | NUR ---
NURSE NOTES: Morning care was done. Cleaned Pt applied lotion and cream. Changed wound dressing. On running with Levophed drip @ 28mcg/hr. Changed position. Tolerated well with current Vent setting. Collected blood sample. Noted residual 30cc. Started NGT feeding with Jevity @ 10cc/hr. Will continue to monitor any change of condition.
[2020-04-08 05:41] LABS: BASOPHILS % (AUTO) 0.7 % (0.0-2.0); HEMATOCRIT 36.3 % (37.0-47.0); HEMOGLOBIN 10.8 G/DL (12.0-16.0); LYMPHOCYTES % (AUTO) 15.8 % (20.0-45.0); MEAN CORPUSCULAR VOLUME 103 FL (80-99); MONOCYTES % (AUTO) 4.4 % (1.0-10.0); NEUTROPHILS % (AUTO) 77.2 % (45.0-75.0); PLATELET COUNT 176 K/UL (150-450); RED BLOOD COUNT 3.53 M/UL (4.20-5.40); RED CELL DISTRIBUTION WIDTH 15.4 % (11.6-14.8); WHITE BLOOD COUNT 15.2 K/UL (4.8-10.8)
--- NOTE | 2020-04-08 06:00 | NUR ---
NURSE NOTES: BP maintains with Levophed drip @ 28mcg/hr and keep MAP over the 65. BP is 103/63mmHg and HR: 97's and SR. SaO2 100% with current Vent setting. Suction and oral care was done. Turn and reposition. Noted good urine output. Will continue to care plan .
[2020-04-08 06:01] LABS: ANION GAP 8 mmol/L (5-15); BLOOD UREA NITROGEN 26 mg/dL (7-18); CALCIUM 9.1 MG/DL (8.5-10.1); CARBON DIOXIDE 25 MMOL/L (21-32); CHLORIDE 111 MMOL/L (98-107); CREATININE 1.2 MG/DL (0.55-1.30); POTASSIUM 4.2 MMOL/L (3.5-5.1); SODIUM 144 MMOL/L (136-145)
--- NOTE | 2020-04-08 07:23 | NUR ---
HAND-OFF: Report given to SHARATH Marx. Pt is resting on the bed and comatose. On running with Levophed drip @ 28mcg/hr. SaO2 100% with current Vent setting.
--- NOTE | 2020-04-08 07:24 | NUR ---
NURSE NOTES: Report received from SHARATH Reyes. Pt is comatose. No response to pain. No gag reflex. No eye opening. Pupils dilated +5-6. SR on case monitor. ETT 7.5/23cm at lip line. AC 14, TV 500, P 10, FiO2 40%. O2 sat 100% on case monitor. No respiratory distress noted. 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 Will check residual. Lainez in place pale urine draining to gravity. YUMIKO PICC line patent and asymptomatic. Levo is running at 28mcg/min. D5W is running at 50cc/hr. Bed in lowest position. Side rails up x3. Will resume plan of care.
--- NOTE | 2020-04-08 07:45 | General Progress Note ---
Assessment/Plan Problem List: (1) COPD (chronic obstructive pulmonary disease) ICD Codes: J44.9 - Chronic obstructive pulmonary disease, unspecified SNOMED: 42135866 Qualifiers: Qualified Codes: J44.9 - Chronic obstructive pulmonary disease, unspecified (2) Pneumonia ICD Codes: J18.9 - Pneumonia, unspecified organism SNOMED: 719327188 Qualifiers: Qualified Codes: J18.9 - Pneumonia, unspecified organism (3) Fever ICD Codes: R50.9 - Fever, unspecified SNOMED: 884097225 Status: stable, progressing Assessment/Plan: clinically brain based on clinical exam and EEG(no activity). Await confirmation by 2nd MD. Then terminal extubation. Subjective ROS Limited/Unobtainable: Yes Constitutional: Reports: malaise, weakness HEENT: Reports: no symptoms Cardiovascular: Reports: no symptoms Respiratory: Reports: no symptoms Gastrointestinal/Abdominal: Reports: difficulty swallowing Genitourinary: Reports: no symptoms Neurologic/Psychiatric: Reports: pre-existing deficit Endocrine: Reports: no symptoms Hematologic/Lymphatic: Reports: no symptoms Allergies: Coded Allergies: PENICILLINS (Verified Allergy, Unknown, 03/11/20) All Systems: reviewed and negative except above Subjective unresponsive. no events. on the vent. full support. breathing 14. ac 14. no gag. pupils fixed and unresponsive. no response to painful stimuli. EEG with NO activity [facility] evaluating pt for organ donation Objective Last 24 Hour Vital Signs Date Time Temp Pulse Resp B/P (MAP) Pulse Ox O2 Delivery O2 Flow Rate FiO2 04/08/20 07:00 99 14 96/60 (72) 99 04/08/20 07:00 96/60 04/08/20 06:00 103/63 04/08/20 06:00 97 14 103/63 (76) 100 04/08/20 05:00 95 14 94/57 (69) 99 04/08/20 05:00 94/57 04/08/20 04:00 Mechanical Ventilator 04/08/20 04:00 97.8 92 16 127/67 (87) 100 04/08/20 04:00 40 04/08/20 04:00 93 04/08/20 04:00 127/67 04/08/20 03:22 92 14 100 Mechanical Ventilator 40 90 14 40 04/08/20 03:00 112/43 04/08/20 03:00 93 14 112/43 (66) 100 04/08/20 02:45 94 14 116/52 (73) 99 04/08/20 02:30 94 14 111/45 (67) 98 04/08/20 02:15 95 14 108/60 (76) 99 04/08/20 02:00 107/56 04/08/20 02:00 94 14 107/56 (73) 98 04/08/20 01:45 97 14 116/55 (75) 98 04/08/20 01:31 123/56 04/08/20 01:30 103 14 123/56 (78) 97 04/08/20 01:00 97 15 126/58 (80) 97 04/08/20 00:00 89 04/08/20 00:00 128/50 04/08/20 00:00 40 04/08/20 00:00 98.1 90 14 128/50 (76) 99 04/08/20 00:00 Mechanical Ventilator 04/07/20 23:25 89 14 100 Mechanical Ventilator 40 89 14 40 04/07/20 23:00 114/45 04/07/20 23:00 90 14 114/45 (68) 97 04/07/20 22:00 104/45 04/07/20 22:00 87 14 104/45 (64) 98 04/07/20 21:45 87 14 122/52 (75) 98 04/07/20 21:30 86 14 118/45 (69) 97 04/07/20 21:15 86 14 109/46 (67) 97 04/07/20 21:00 86 14 121/26 (57) 98 04/07/20 21:00 121/26 04/07/20 20:45 86 14 111/31 (57) 98 04/07/20 20:30 86 14 109/63 (78) 98 04/07/20 20:15 85 14 120/59 (79) 98 04/07/20 20:00 Mechanical Ventilator 04/07/20 20:00 86 14 122/54 (76) 98 20 20:00 83 /20 20:00 122/54 20 20:00 40 04/07/20 19:07 85 14 100 Mechanical Ventilator 40 84 14 40 04/07/20 19:00 86 14 101/18 (45) 97 04/07/20 19:00 108/19 04/07/20 18:30 90 14 90/28 (48) 98 20 18:00 91 14 117/21 (53) 98 20 18:00 117/21 04/07/20 17:30 88 14 101/23 (49) 98 20 17:00 102/49 04/07/20 17:00 97.9 82 14 102/49 (66) 98 04/07/20 16:30 82 14 106/41 (62) 98 04/07/20 16:20 104/20 04/07/20 16:00 40 04/07/20 16:00 81 14 104/20 (48) 99 04/07/20 16:00 102/18 04/07/20 16:00 Mechanical Ventilator 04/07/20 15:33 81 14 100 Mechanical Ventilator 40 81 14 40 04/07/20 15:30 81 14 97/20 (45) 99 04/07/20 15:00 81 14 97/15 (42) 99 04/07/20 15:00 97/15 04/07/20 14:30 81 14 101/44 (63) 100 04/07/20 14:00 81 14 101/44 (63) 100 04/07/20 14:00 101/44 04/07/20 13:30 80 14 90/18 (42) 100 04/07/20 13:00 83 14 109/29 (55) 100 04/07/20 13:00 109/29 04/07/20 12:43 83 04/07/20 12:30 83 14 100/20 (46) 98 04/07/20 12:06 83 04/07/20 12:00 98.0 85 14 101/49 (66) 98 04/07/20 12:00 111/58 04/07/20 12:00 Mechanical Ventilator 04/07/20 12:00 40 04/07/20 11:47 98/43 04/07/20 11:30 84 14 98/43 (61) 100 04/07/20 11:30 85 14 100 Mechanical Ventilator 40 86 14 40 04/07/20 11:00 98/52 04/07/20 11:00 89 14 98/52 (67) 100 04/07/20 10:30 89 14 118/26 (56) 99 04/07/20 10:00 94 14 92/55 (67) 98 04/07/20 10:00 118/26 04/07/20 09:30 86 14 105/30 (55) 100 04/07/20 09:00 89 14 103/28 (53) 100 04/07/20 09:00 109/57 04/07/20 09:00 97 14 108/79 (89) 100 04/07/20 08:30 92 14 86/65 (72) 100 04/07/20 08:00 40 04/07/20 08:00 110/77 04/07/20 08:00 97.4 95 14 110/77 (88) 100 04/07/20 08:00 Mechanical Ventilator 04/07/20 07:53 96 14 100 Mechanical Ventilator 40 96 14 40 Intake and Output 04/07/20 04/08/20 19:00 07:00 Intake Total 2856.250 ml 2360.910 ml Output Total 1830 ml 1975 ml Balance 1026.250 ml 385.910 ml Free Water 30 ml IV Total 2486.250 ml 2320.910 ml Tube Feeding 180 ml 40 ml Other 160 ml Output Urine Total 1830 ml 1975 ml Laboratory Tests 04/07/20 09:00: White Blood Count 11.6H, Red Blood Count 3.12L, Hemoglobin 9.5L, Hematocrit 31.6L, Mean Corpuscular Volume 101H, Mean Corpuscular Hemoglobin 30.5, Mean Corpuscular Hemoglobin Concent 30.2L, Red Cell Distribution Width 15.2H, Platelet Count 156, Mean Platelet Volume 8.4, Neutrophils (%) (Auto) 75.4H, Lymphocytes (%) (Auto) 17.6L, Monocytes (%) (Auto) 3.2, Eosinophils (%) (Auto) 3.0, Basophils (%) (Auto) 0.8, Sodium Level 139, Potassium Level 3.3L, Chloride Level 107, Carbon Dioxide Level 24, Anion Gap 8, Blood Urea Nitrogen 24H, Creatinine 1.2, Estimat Glomerular Filtration Rate 45.7, Glucose Level 466#H, Calcium Level 8.5, Total Bilirubin 0.3, Aspartate Amino Transf (AST/SGOT) 69H, Alanine Aminotransferase (ALT/SGPT) 33, Alkaline Phosphatase 148H, Total Protein 5.3L, Albumin 0.9L, Globulin 4.4, Albumin/Globulin Ratio 0.2L 04/08/20 04:22: White Blood Count 15.2H, Red Blood Count 3.53L, Hemoglobin 10.8L, Hematocrit 36.3L, Mean Corpuscular Volume 103H, Mean Corpuscular Hemoglobin 30.6, Mean Corpuscular Hemoglobin Concent 29.8L, Red Cell Distribution Width 15.4H, Platelet Count 176, Mean Platelet Volume 9.0, Neutrophils (%) (Auto) 77.2H, Lymphocytes (%) (Auto) 15.8L, Monocytes (%) (Auto) 4.4, Eosinophils (%) (Auto) 2.0, Basophils (%) (Auto) 0.7, Sodium Level 144, Potassium Level 4.2, Chloride Level 111H, Carbon Dioxide Level 25, Anion Gap 8, Blood Urea Nitrogen 26H, Creatinine 1.2, Estimat Glomerular Filtration Rate 45.7, Glucose Level 135#H, Calcium Level 9.1 Height (Feet): 5 Height (Inches): 5.00 Weight (Pounds): 133 Objective General Appearance: WD/WN, unresponsive intubated Neck: non-tender Cardiovascular: normal rate, regular rhythm Respiratory/Chest: chest wall non-tender, lungs clear, normal breath sounds Abdomen: normal bowel sounds, non tender, soft, no organomegaly Edema: no edema noted Arm (L), no edema noted Arm (R), no edema noted Leg (L), no edema noted Leg (R), no edema noted Pedal (L), no edema noted Pedal (R), no edema noted Generalized Neurologic: unresponsive Isaak Ledesma MD Apr 08, 2020 07:45
[2020-04-08] MEDS: Multivitamins W/Minerals 15 ML UDC NG SCH (08:18)
[2020-04-08] MEDS: Lactulose 20gm/30ml UDC NG SCH ×3 (08:18→18:15)
[2020-04-08] MEDS: Ascorbic Acid 500mg tab NG SCH (08:19)
[2020-04-08] MEDS: Zinc Sulfate 220mg NG SCH (08:19)
[2020-04-08] MEDS: Midodrine 10mg tab NG SCH ×3 (08:19→18:16)
[2020-04-08] MEDS: Pantoprazole Inj IVP SCH (08:19)
[2020-04-08] MEDS: Heparin 5000 units/ml inj SUBQ SCH ×2 (08:20→20:21)
--- NOTE | 2020-04-08 09:11 | NUR ---
NURSE NOTES: Dr Tucker here to see the patient. Notified him that pt had high residual and feeding has been held since baker bread. No new orders for now. Will continue to monitor residual.
--- NOTE | 2020-04-08 10:11 | NUR ---
NURSE NOTES: Notified Dr Tate regarding ABG result. Order to change vent setting and ABG in 4 hours received, noted, and carried out. Notified RT.
[2020-04-08] MEDS: Cefepime HCl 2 GM in D5W 55 ML IVPB SCH (11:22)
[2020-04-08] MEDS: Phenylephrine 50 MG in D5W 245 ML IV SCH (11:22)
--- NOTE | 2020-04-08 11:31 | Infectious Diseases Prog Note ---
Assessment/Plan Assessment/Plan A: 1. Klebsiella Pneumonia, COVID-19 test is negative x2. 2. Hypothyroidism. 3. COPD. 4. Schizophrenia. 5. Leukocytosis, improving. 6. 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 CP arrest 9. Brain PLAN: 1. continue Cefepime , Discontinue Vancomycin 2. Case was d/w RN 3. ? organ donation Subjective ROS Limited/Unobtainable: Yes Constitutional: Denies: fever Allergies: Coded Allergies: PENICILLINS (Verified Allergy, Unknown, 03/11/20) Objective Last 24 Hour Vital Signs Date Time Temp Pulse Resp B/P (MAP) Pulse Ox O2 Delivery O2 Flow Rate FiO2 04/08/20 11:22 98/67 04/08/20 10:12 40 04/08/20 10:00 96 14 96/64 (75) 100 04/08/20 09:00 96/56 04/08/20 09:00 98 14 93/54 (67) 100 04/08/20 08:30 103 14 89/59 (69) 100 04/08/20 08:28 98 04/08/20 08:00 Mechanical Ventilator 04/08/20 08:00 133/85 04/08/20 08:00 98.2 97 14 98/60 (73) 100 04/08/20 08:00 40 04/08/20 07:30 97 14 96/56 (69) 100 04/08/20 07:14 108 14 100 Mechanical Ventilator 40 109 14 40 04/08/20 07:00 99 14 96/60 (72) 99 04/08/20 07:00 96/60 04/08/20 06:00 103/63 04/08/20 06:00 97 14 103/63 (76) 100 04/08/20 05:00 95 14 94/57 (69) 99 04/08/20 05:00 94/57 04/08/20 04:00 Mechanical Ventilator 04/08/20 04:00 97.8 92 16 127/67 (87) 100 04/08/20 04:00 40 04/08/20 04:00 93 04/08/20 04:00 127/67 04/08/20 03:22 92 14 100 Mechanical Ventilator 40 90 14 40 04/08/20 03:00 112/43 04/08/20 03:00 93 14 112/43 (66) 100 02:45 94 14 116/52 (73) 99 720 02:30 94 14 111/45 (67) 98 720 02:15 95 14 108/60 (76) 99 720 02:00 107/56 7 02:00 94 14 107/56 (73) 98 7//20 01:45 97 14 116/55 (75) 98 720 01:31 123/56 04/08/20 01:30 103 14 123/56 (78) 97 04/08/20 01:00 97 15 126/58 (80) 97 04/08/20 00:00 89 7 00:00 128/50 04/08/20 00:00 40 04/08/20 00:00 98.1 90 14 128/50 (76) 99 04/08/20 00:00 Mechanical Ventilator 04/07/20 23:25 89 14 100 Mechanical Ventilator 40 89 14 40 04/07/20 23:00 114/45 04/07/20 23:00 90 14 114/45 (68) 97 04/07/20 22:00 104/45 04/07/20 22:00 87 14 104/45 (64) 98 04/07/20 21:45 87 14 122/52 (75) 98 04/07/20 21:30 86 14 118/45 (69) 97 20 21:15 86 14 109/46 (67) 97 20 21:00 86 14 121/26 (57) 98 720 21:00 121/26 04/07/20 20:45 86 14 111/31 (57) 98 /20 20:30 86 14 109/63 (78) 98 7/20 20:15 85 14 120/59 (79) 98 20 20:00 Mechanical Ventilator 04/07/20 20:00 86 14 122/54 (76) 98 /20 20:00 83 7/20 20:00 122/54 720 20:00 40 20 19:07 85 14 100 Mechanical Ventilator 40 84 14 40 04/07/20 19:00 86 14 101/18 (45) 97 04/07/20 19:00 108/19 04/07/20 18:30 90 14 90/28 (48) 98 04/07/20 18:00 91 14 117/21 (53) 98 04/07/20 18:00 117/21 04/07/20 17:30 88 14 101/23 (49) 98 04/07/20 17:00 102/49 04/07/20 17:00 97.9 82 14 102/49 (66) 98 04/07/20 16:30 82 14 106/41 (62) 98 04/07/20 16:20 104/20 04/07/20 16:00 40 04/07/20 16:00 81 14 104/20 (48) 99 04/07/20 16:00 102/18 04/07/20 16:00 Mechanical Ventilator 04/07/20 15:33 81 14 100 Mechanical Ventilator 40 81 14 40 04/07/20 15:30 81 14 97/20 (45) 99 04/07/20 15:00 81 14 97/15 (42) 99 04/07/20 15:00 97/15 04/07/20 14:30 81 14 101/44 (63) 100 04/07/20 14:00 81 14 101/44 (63) 100 04/07/20 14:00 101/44 04/07/20 13:30 80 14 90/18 (42) 100 04/07/20 13:00 83 14 109/29 (55) 100 04/07/20 13:00 109/29 04/07/20 12:43 83 04/07/20 12:30 83 14 100/20 (46) 98 04/07/20 12:06 83 04/07/20 12:00 98.0 85 14 101/49 (66) 98 04/07/20 12:00 111/58 04/07/20 12:00 Mechanical Ventilator 04/07/20 12:00 40 04/07/20 11:47 98/43 04/07/20 11:30 84 14 98/43 (61) 100 04/07/20 11:30 85 14 100 Mechanical Ventilator 40 86 14 40 Height (Feet): 5 Height (Inches): 5.00 Weight (Pounds): 133 HEENT: other - orally intubated Respiratory/Chest: lungs clear, other - on ventilator Cardiovascular: normal rate, other - PICC line Abdomen: soft, non tender Skin: ulcers Neurologic/Psychiatric: other - dilated pupils no reflex Laboratory Tests Test 04/08/20 04:22 04/08/20 09:38 White Blood Count 15.2 K/UL (4.8-10.8) H Red Blood Count 3.53 M/UL (4.20-5.40) L Hemoglobin 10.8 G/DL (12.0-16.0) L Hematocrit 36.3 % (37.0-47.0) L Mean Corpuscular Volume 103 FL (80-99) H Mean Corpuscular Hemoglobin 30.6 PG (27.0-31.0) Mean Corpuscular Hemoglobin Concent 29.8 G/DL (32.0-36.0) L Red Cell Distribution Width 15.4 % (11.6-14.8) H Platelet Count 176 K/UL (150-450) Mean Platelet Volume 9.0 FL (6.5-10.1) Neutrophils (%) (Auto) 77.2 % (45.0-75.0) H Lymphocytes (%) (Auto) 15.8 % (20.0-45.0) L Monocytes (%) (Auto) 4.4 % (1.0-10.0) Eosinophils (%) (Auto) 2.0 % (0.0-3.0) Basophils (%) (Auto) 0.7 % (0.0-2.0) Sodium Level 144 MMOL/L (136-145) Potassium Level 4.2 MMOL/L (3.5-5.1) Chloride Level 111 MMOL/L (98-107) H Carbon Dioxide Level 25 MMOL/L (21-32) Anion Gap 8 mmol/L (5-15) Blood Urea Nitrogen 26 mg/dL (7-18) H Creatinine 1.2 MG/DL (0.55-1.30) Estimat Glomerular Filtration Rate 45.7 mL/min (>60) Glucose Level 135 MG/DL (74-106) #H Calcium Level 9.1 MG/DL (8.5-10.1) Arterial Blood pH 7.223 (7.350-7.450) Arterial Blood Partial Pressure CO2 53.8 mmHg (35.0-45.0) H Arterial Blood Partial Pressure O2 89.6 mmHg (75.0-100.0) Arterial Blood HCO3 21.7 mmol/L (22.0-26.0) L Arterial Blood Oxygen Saturation 96.2 % (95-100) Arterial Blood Base Excess -6.1 (-2-2) L Keith Test N/a Current Medications Medications (Trade) Dose Ordered Sig/Ranjeet Route PRN Reason Start Time Stop Time Status Last Admin Dose Admin Acetaminophen (Tylenol) 650 mg Q4H PRN NG Mild Pain (1-3)/Fever > 100.5 03/22/20 15:30 04/10/20 19:29 Albuterol Sulfate (Proventil MDI) 2 puff Q4HRT INH 03/18/20 15:00 06/13/20 02:59 04/08/20 08:13 Ascorbic Acid (Vitamin C) 500 mg DAILY NG 03/23/20 09:00 04/11/20 08:59 04/08/20 08:19 Atropine Sulfate (Atropine) 1 mg Q1H PRN IVP HR <40BPM 03/18/20 13:30 04/17/20 13:29 03/31/20 14:58 Cefepime HCl 2 gm/ Dextrose 55 ml @ 110 mls/hr Q12H IVPB 04/02/20 12:00 04/13/20 11:59 04/08/20 11:22 Chlorhexidine Gluconate (Mary-Hex 2%) 1 applic DAILY@2000 TOPIC 03/21/20 20:00 06/19/20 19:59 04/07/20 20:05 Clonidine HCl (Catapres Tab) 0.1 mg Q4H PRN NG For High Blood Pressure 03/31/20 16:45 06/29/20 16:44 03/31/20 16:45 Dextrose 1,000 ml @ 125 mls/hr Q8H IV 04/04/20 11:30 05/04/20 11:29 04/08/20 11:09 Heparin Sodium (Porcine) (Heparin 5000 units/ml) 5,000 units EVERY 12 HOURS SUBQ 03/18/20 21:00 04/25/20 20:59 04/08/20 08:20 Lactulose (Cephulac) 30 gm THREE TIMES A DAY NG 03/22/20 18:00 04/18/20 09:14 04/08/20 08:18 Levothyroxine Sodium (Synthroid) 150 mcg DAILY@0630 ORAL 03/31/20 06:30 04/30/20 06:29 04/08/20 05:58 Loratadine (Claritin 10mg) 10 mg DAILY ORAL 03/23/20 09:00 04/11/20 08:59 04/08/20 08:19 Magnesium Hydroxide (Mom) 30 ml HSPRN PRN NG Constipation 03/22/20 15:30 04/17/20 13:59 04/03/20 17:15 Midodrine (Pro-Amatine) 10 mg THREE TIMES A DAY NG 03/24/20 13:00 06/21/20 08:59 04/08/20 08:19 Multivitamins (Multivitamins W/ Minerals 15ml Liquid) 15 ml DAILY NG 03/23/20 09:00 04/11/20 08:59 04/08/20 08:18 Norepinephrine Bitartrate 16 mg/ Dextrose 500 ml @ 0 mls/hr Q24H IV 04/07/20 15:00 05/07/20 14:59 04/08/20 11:22 Pantoprazole (Protonix) 40 mg DAILY IVP 03/23/20 09:00 04/22/20 08:59 04/08/20 08:19 Phenylephrine HCl 50 mg/Dextrose 250 ml @ 0 mls/hr Q24H IV 04/01/20 12:00 05/01/20 11:59 04/03/20 23:36 Vancomycin HCl (Vanco pharmacy to dose) 1 ea DAILY PRN MISC Per rx protocol 04/03/20 11:00 05/03/20 10:59 Vancomycin HCl 1 gm/Sodium Chloride 275 ml @ 183.708 mls/hr Q12H IVPB 04/03/20 14:00 04/13/20 13:59 04/08/20 01:59 Zinc Sulfate (Zinc Sulfate) 220 mg DAILY NG 03/23/20 09:00 06/10/20 08:59 04/08/20 08:19 Domingo Polo MD Apr 08, 2020 11:31
--- NOTE | 2020-04-08 12:00 | NUR ---
NURSE NOTES: Oral care done. Afebrile. Turn and repositioned patient. No changes in neuro status. No gag reflex. Pupils are dilated 5-6. No response to any verbal or tactile stimuli. MDs already aware. Will continue to monitor.
--- NOTE | 2020-04-08 12:30 | NUR ---
NURSE NOTES: Turned and repositioned patient. Oral care done. Afebrile. Pt is still comatose. Patient is tolerating the current vent setting. O2 sat 100%. Will check ABG at 1430. BP 121/77 on Levo at 28mcg/min. Will continue to monitor. Addendum: 04/08/20 at 1420 by DIXIE AWAN RN RN NURSE NOTES: Turned and repositioned patient. Oral care done. Afebrile. Pt is still comatose. Patient is tolerating the current vent setting. O2 sat 100%. Will check ABG at 1430. BP 121/77 on Levo at 28mcg/min. Will continue to monitor. Addendum: 04/08/20 at 1421 by DIXIE AWAN RN RN wrong time
--- NOTE | 2020-04-08 13:16 | General Progress Note ---
Assessment/Plan Status: stable, progressing Assessment/Plan: Assessment - Resp failure - dysphagia / NGT / residuals - COPD - Clinical brain - Anemia - leukocytosis - hypernatremia, improved - sepsis - hypothyroid - poor prognosis Recommendations - pulmonary f/u - D5W - abx - TF as tolerated - hold PRN - elevate HOB - follow labs and exam - abx - terminal extubation Subjective Allergies: Coded Allergies: PENICILLINS (Verified Allergy, Unknown, 03/11/20) Subjective Above noted seen in ICU on vent d/w RN - some residuals noted terminal extubation pending Objective Last 24 Hour Vital Signs Date Time Temp Pulse Resp B/P (MAP) Pulse Ox O2 Delivery O2 Flow Rate FiO2 04/08/20 12:00 98.5 98 18 125/78 (94) 100 04/08/20 12:00 125/78 04/08/20 12:00 Mechanical Ventilator 04/08/20 11:30 92 18 116/75 (89) 100 04/08/20 11:27 91 04/08/20 11:22 98/67 04/08/20 11:11 91 18 100 Mechanical Ventilator 45 91 18 40 04/08/20 11:00 82/52 04/08/20 11:00 92 18 104/70 (81) 100 04/08/20 10:30 93 18 102/72 (82) 100 04/08/20 10:12 40 04/08/20 10:11 40 04/08/20 10:00 101/65 04/08/20 10:00 96 14 96/64 (75) 100 04/08/20 09:30 97 14 97/56 (70) 100 04/08/20 09:00 96/56 04/08/20 09:00 96/56 04/08/20 09:00 98 14 93/54 (67) 100 04/08/20 08:30 103 14 89/59 (69) 100 04/08/20 08:28 98 04/08/20 08:00 Mechanical Ventilator 04/08/20 08:00 133/85 04/08/20 08:00 98.2 97 14 98/60 (73) 100 04/08/20 08:00 40 04/08/20 07:30 97 14 96/56 (69) 100 04/08/20 07:14 108 14 100 Mechanical Ventilator 40 109 14 40 04/08/20 07:00 99 14 96/60 (72) 99 04/08/20 07:00 96/60 04/08/20 06:00 103/63 04/08/20 06:00 97 14 103/63 (76) 100 04/08/20 05:00 95 14 94/57 (69) 99 04/08/20 05:00 94/57 04/08/20 04:00 Mechanical Ventilator 04/08/20 04:00 97.8 92 16 127/67 (87) 100 04/08/20 04:00 40 04/08/20 04:00 93 04/08/20 04:00 127/67 04/08/20 03:22 92 14 100 Mechanical Ventilator 40 90 14 40 04/08/20 03:00 112/43 04/08/20 03:00 93 14 112/43 (66) 100 04/08/20 02:45 94 14 116/52 (73) 99 04/08/20 02:30 94 14 111/45 (67) 98 04/08/20 02:15 95 14 108/60 (76) 99 04/08/20 02:00 107/56 04/08/20 02:00 94 14 107/56 (73) 98 04/08/20 01:45 97 14 116/55 (75) 98 04/08/20 01:31 123/56 04/08/20 01:30 103 14 123/56 (78) 97 04/08/20 01:00 97 15 126/58 (80) 97 04/08/20 00:00 89 04/08/20 00:00 128/50 04/08/20 00:00 40 04/08/20 00:00 98.1 90 14 128/50 (76) 99 04/08/20 00:00 Mechanical Ventilator 04/07/20 23:25 89 14 100 Mechanical Ventilator 40 89 14 40 04/07/20 23:00 114/45 04/07/20 23:00 90 14 114/45 (68) 97 04/07/20 22:00 104/45 04/07/20 22:00 87 14 104/45 (64) 98 04/07/20 21:45 87 14 122/52 (75) 98 04/07/20 21:30 86 14 118/45 (69) 97 7/4/20 21:15 86 14 109/46 (67) 97 04/07/20 21:00 86 14 121/26 (57) 98 20 21:00 121/26 04/07/20 20:45 86 14 111/31 (57) 98 20 20:30 86 14 109/63 (78) 98 20 20:15 85 14 120/59 (79) 98 04/07/20 20:00 Mechanical Ventilator 04/07/20 20:00 86 14 122/54 (76) 98 04/07/20 20:00 83 20 20:00 122/54 04/07/20 20:00 40 04/07/20 19:07 85 14 100 Mechanical Ventilator 40 84 14 40 04/07/20 19:00 86 14 101/18 (45) 97 04/07/20 19:00 108/19 04/07/20 18:30 90 14 90/28 (48) 98 04/07/20 18:00 91 14 117/21 (53) 98 04/07/20 18:00 117/21 04/07/20 17:30 88 14 101/23 (49) 98 04/07/20 17:00 102/49 04/07/20 17:00 97.9 82 14 102/49 (66) 98 04/07/20 16:30 82 14 106/41 (62) 98 04/07/20 16:20 104/20 04/07/20 16:00 40 04/07/20 16:00 81 14 104/20 (48) 99 04/07/20 16:00 102/18 04/07/20 16:00 Mechanical Ventilator 04/07/20 15:33 81 14 100 Mechanical Ventilator 40 81 14 40 04/07/20 15:30 81 14 97/20 (45) 99 20 15:00 81 14 97/15 (42) 99 04/07/20 15:00 97/15 04/07/20 14:30 81 14 101/44 (63) 100 04/07/20 14:00 81 14 101/44 (63) 100 04/07/20 14:00 101/44 04/07/20 13:30 80 14 90/18 (42) 100 Intake and Output 04/07/20 04/08/20 19:00 07:00 Intake Total 2856.250 ml 2360.910 ml Output Total 1830 ml 1975 ml Balance 1026.250 ml 385.910 ml Free Water 30 ml IV Total 2486.250 ml 2320.910 ml Tube Feeding 180 ml 40 ml Other 160 ml Output Urine Total 1830 ml 1975 ml Laboratory Tests 04/08/20 04:22: White Blood Count 15.2H, Red Blood Count 3.53L, Hemoglobin 10.8L, Hematocrit 36.3L, Mean Corpuscular Volume 103H, Mean Corpuscular Hemoglobin 30.6, Mean Corpuscular Hemoglobin Concent 29.8L, Red Cell Distribution Width 15.4H, Platelet Count 176, Mean Platelet Volume 9.0, Neutrophils (%) (Auto) 77.2H, Lymphocytes (%) (Auto) 15.8L, Monocytes (%) (Auto) 4.4, Eosinophils (%) (Auto) 2.0, Basophils (%) (Auto) 0.7, Sodium Level 144, Potassium Level 4.2, Chloride Level 111H, Carbon Dioxide Level 25, Anion Gap 8, Blood Urea Nitrogen 26H, Creatinine 1.2, Estimat Glomerular Filtration Rate 45.7, Glucose Level 135#H, Calcium Level 9.1 04/08/20 09:38: Arterial Blood pH 7.223*L, Arterial Blood Partial Pressure CO2 53.8H, Arterial Blood Partial Pressure O2 89.6, Arterial Blood HCO3 21.7L, Arterial Blood Oxygen Saturation 96.2, Arterial Blood Base Excess -6.1L, Keith Test N/a Height (Feet): 5 Height (Inches): 5.00 Weight (Pounds): 133 Objective Thin WW NCAT (+) ETT, NGT supple coarse BS RR abd soft NT ND no edema Douglas Tucker MD Apr 08, 2020 13:16
--- NOTE | 2020-04-08 13:33 | NUR ---
CASE MANAGEMENT:REVIEW 04/08/20 SI: PNA. ACUTE RESPIRATORY FAILURE 98.5 98 18 125/78 100% ON MECH VENT FIO2 45 WBC 15.2 BUN 26 BG 135 ABG: pH 7.223 pCO2 53.8 HCO3- 21.7 BE -6.1 IS: IV VANCOMYCIN Q12H IV CEFEPIME Q12H LEVOPHED GTT IV D5@125ML/HR IV PROTONIX QD LACTULOSE NG TID HEPARIN SUBQ Q12H ALBUTEROL INH Q4HRS RTC : ICU STATUS DCP: FROM PLAN: ADJUST VENT SETTING CONT RESP CARE PLAN TO TERMINAL EXTUBATION
--- NOTE | 2020-04-08 13:37 | NUR ---
*-* INSURANCE *-* UPDATED CLINICALS AND REVIEWS HAVE BEEN FAXED TO; [facility] F: [phone] REF #[id number]
--- NOTE | 2020-04-08 14:21 | NUR ---
NURSE NOTES: Turned and repositioned patient. Oral care done. Afebrile. Pt is still comatose. Patient is tolerating the current vent setting. O2 sat 100%. Will check ABG at 1430. BP 121/77 on Levo at 28mcg/min. Will continue to monitor.
--- NOTE | 2020-04-08 14:58 | NUR ---
NURSE NOTES: Dr Tate here to see the patient. Dr Tate did assessment at bedside and writing a progress note in the nursing station.
--- NOTE | 2020-04-08 15:04 | Pulmonolgy Critical Care Note ---
Critical Care - Asmt/Plan Assessment/Plan: Pulmonary CCM Progress Note Assessment/Plan IMPRESSION: 1. COPD 2. Hypercapnia and hypoxemia. 3. Pneumonia,intermediate 4. Hypothyroidism. 5. History of allergies. 6. Severe protein-calorie malnutrition. 7. Mild leukocytosis. 8. acute respiratory failure/ failed extubation 9. pulmonary congestion 10. hypernatremia 11. brain , [facility] following care noted brain respiratory care as is on pressors reviewed changes; monitor secretions- discussed care Ventilatory support as is monitor for CO2 retention and congestion maintain meds DVT prophylaxis; supportive care as is off load aspiration precautions position change and off load oxygen therapy as is terminal extubation medications/laboratory data/nursing notes/ICU care reviewed in detail note reviewed and edited care discussed with RN and RT ICU time spent >40 minutes Interval Events: clinically brain EEG noted ROS Limited/Unobtainable: Yes Condition: critical EKG Rhythm: Sinus Rhythm ETT: 7.5 Vital Signs Noted Labs: noted Objective: GENERAL: An ill-appearing female. NAD on Vent NECK: Supple. No adenopathy. LUNGS: Coarse breath sounds. Moderate air entry. ETT in place; no rhonchi or wheeze CARDIAC: S1, S2. Regular rate and rhythm without murmur. ABDOMEN: Soft, nontender, nondistended. feeding tube EXTREMITIES: No cyanosis, clubbing, or edema. 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 Respiratory rate18 despite elevated CO2, on AC 18. no gag reflex noted. Pupils fixed, dilated and unresponsive to light. No ocular response to ice cold saline instilled in external auditory canals bilaterally. EEG with NO activity per Neurologist. [facility] evaluating pt for organ donation on the vent reviewed and edited Micro: Microbiology Date/Time Source Procedure Growth Status 04/03/20 13:00 Blood Blood Culture - Preliminary NO GROWTH AFTER 48 HOURS Resulted 04/03/20 15:00 Sputum Gram Stain - Final Complete 04/03/20 15:00 Sputum Sputum Culture - Final NORMAL UPPER RESPIRATORY ALEXANDRO PRESENT Complete 04/03/20 13:00 Urine,Clean Catch Urine Culture - Final Delfina Albicans Complete Critical Care - Objective Last 24 Hour Vital Signs Date Time Temp Pulse Resp B/P (MAP) Pulse Ox O2 Delivery O2 Flow Rate FiO2 04/08/20 14:41 95 18 100 Mechanical Ventilator 45 94 18 45 04/08/20 14:30 96 18 137/86 (103) 100 04/08/20 14:30 137/86 04/08/20 14:00 114/76 04/08/20 14:00 93 18 114/76 (89) 100 04/08/20 13:30 93 18 115/75 (88) 100 04/08/20 13:00 111/70 04/08/20 13:00 92 18 111/70 (84) 100 04/08/20 12:30 94 18 106/68 (81) 100 04/08/20 12:00 98.5 98 18 125/78 (94) 100 04/08/20 12:00 125/78 04/08/20 12:00 Mechanical Ventilator 04/08/20 11:30 92 18 116/75 (89) 100 04/08/20 11:27 91 04/08/20 11:22 98/67 04/08/20 11:11 91 18 100 Mechanical Ventilator 45 91 18 40 04/08/20 11:00 82/52 04/08/20 11:00 92 18 104/70 (81) 100 04/08/20 10:30 93 18 102/72 (82) 100 04/08/20 10:12 40 04/08/20 10:11 40 04/08/20 10:00 101/65 04/08/20 10:00 96 14 96/64 (75) 100 04/08/20 09:30 97 14 97/56 (70) 100 04/08/20 09:00 96/56 04/08/20 09:00 96/56 04/08/20 09:00 98 14 93/54 (67) 100 04/08/20 08:30 103 14 89/59 (69) 100 04/08/20 08:28 98 04/08/20 08:00 Mechanical Ventilator 04/08/20 08:00 133/85 04/08/20 08:00 98.2 97 14 98/60 (73) 100 04/08/20 08:00 40 04/08/20 07:30 97 14 96/56 (69) 100 04/08/20 07:14 108 14 100 Mechanical Ventilator 40 109 14 40 04/08/20 07:00 99 14 96/60 (72) 99 04/08/20 07:00 96/60 04/08/20 06:00 103/63 04/08/20 06:00 97 14 103/63 (76) 100 04/08/20 05:00 95 14 94/57 (69) 99 04/08/20 05:00 94/57 04/08/20 04:00 Mechanical Ventilator 04/08/20 04:00 97.8 92 16 127/67 (87) 100 04/08/20 04:00 40 04/08/20 04:00 93 04/08/20 04:00 127/67 04/08/20 03:22 92 14 100 Mechanical Ventilator 40 90 14 40 04/08/20 03:00 112/43 04/08/20 03:00 93 14 112/43 (66) 100 04/08/20 02:45 94 14 116/52 (73) 99 04/08/20 02:30 94 14 111/45 (67) 98 04/08/20 02:15 95 14 108/60 (76) 99 04/08/20 02:00 107/56 04/08/20 02:00 94 14 107/56 (73) 98 04/08/20 01:45 97 14 116/55 (75) 98 04/08/20 01:31 123/56 04/08/20 01:30 103 14 123/56 (78) 97 04/08/20 01:00 97 15 126/58 (80) 97 04/08/20 00:00 89 04/08/20 00:00 128/50 04/08/20 00:00 40 04/08/20 00:00 98.1 90 14 128/50 (76) 99 04/08/20 00:00 Mechanical Ventilator 04/07/20 23:25 89 14 100 Mechanical Ventilator 40 89 14 40 04/07/20 23:00 114/45 04/07/20 23:00 90 14 114/45 (68) 97 04/07/20 22:00 104/45 04/07/20 22:00 87 14 104/45 (64) 98 04/07/20 21:45 87 14 122/52 (75) 98 04/07/20 21:30 86 14 118/45 (69) 97 04/07/20 21:15 86 14 109/46 (67) 97 04/07/20 21:00 86 14 121/26 (57) 98 04/07/20 21:00 121/26 04/07/20 20:45 86 14 111/31 (57) 98 04/07/20 20:30 86 14 109/63 (78) 98 04/07/20 20:15 85 14 120/59 (79) 98 04/07/20 20:00 Mechanical Ventilator 04/07/20 20:00 86 14 122/54 (76) 98 04/07/20 20:00 83 04/07/20 20:00 122/54 04/07/20 20:00 40 04/07/20 19:07 85 14 100 Mechanical Ventilator 40 84 14 40 04/07/20 19:00 86 14 101/18 (45) 97 04/07/20 19:00 108/19 04/07/20 18:30 90 14 90/28 (48) 98 04/07/20 18:00 91 14 117/21 (53) 98 04/07/20 18:00 117/21 04/07/20 17:30 88 14 101/23 (49) 98 04/07/20 17:00 102/49 04/07/20 17:00 97.9 82 14 102/49 (66) 98 04/07/20 16:30 82 14 106/41 (62) 98 04/07/20 16:20 104/20 04/07/20 16:00 40 04/07/20 16:00 81 14 104/20 (48) 99 04/07/20 16:00 102/18 04/07/20 16:00 Mechanical Ventilator 04/07/20 15:33 81 14 100 Mechanical Ventilator 40 81 14 40 04/07/20 15:30 81 14 97/20 (45) 99 04/07/20 15:00 81 14 97/15 (42) 99 04/07/20 15:00 97/15 Critical Care - Subjective ROS Limited/Unobtainable: No Condition: critical FI02: 45 Vent Support Breath Rate: 18 Vent Support Mode: AC Vent Tidal Volume: 500 Sputum Amount: None PEEP: 10.0 PIP: 27 Tube Feeding Amount: 10 I&O: Intake and Output 04/07/20 04/08/20 19:00 07:00 Intake Total 2856.250 ml 2360.910 ml Output Total 1830 ml 1975 ml Balance 1026.250 ml 385.910 ml Free Water 30 ml IV Total 2486.250 ml 2320.910 ml Tube Feeding 180 ml 40 ml Other 160 ml Output Urine Total 1830 ml 1975 ml ET-Tube: 7.5 ET Position: 23 Juan Tate MD Apr 08, 2020 15:04
--- NOTE | 2020-04-08 16:40 | NUR ---
NURSE NOTES: Cleaned and repositioned patient. BP 118/76 on Levo at 24mcg/min. Afebrile. Will continue to monitor. Addendum: 04/08/20 at 1832 by DIXIE AWAN RN RN NURSE NOTES: Cleaned and repositioned patient. BP 118/76 on Levo at 26mcg/min. Afebrile. Will continue to monitor.
--- NOTE | 2020-04-08 17:45 | NUR ---
NURSE NOTES: BP 130/92. Titrated down Levo to 24mcg/min. Turned and repositioned patient. Will continue to monitor.
--- NOTE | 2020-04-08 19:17 | NUR ---
HAND-OFF: Report given to SHARATH Medina.
--- NOTE | 2020-04-08 20:00 | NUR ---
NURSE NOTES: Report received from Puma EARLY. Pt is comatose. No response to pain. No gag reflex. No eye opening. Pupils dilated +5-6. SR on desk monitor. ETT 7.5/23cm at lip line. AC 14, TV 500, P 10, FiO2 45%. O2 sat 100% on desk monitor. No respiratory distress noted. Left NGT in place, feeding held due to high residual as per shift superintendent. Will check residual. Lainez in place pale urine draining to gravity. YUMIKO PICC line patent and asymptomatic. Levo is running at 28mcg/min. D5W is running at 100cc/hr. Bed in lowest position. Side rails up x2. Will resume plan of care.
[2020-04-08] MEDS: Dyna-Hex 2% Top Sol 2oz TOPIC SCH (20:20)
--- NOTE | 2020-04-08 22:00 | NUR ---
NURSE NOTES: Bedside assessment performed. Patient was suctioned. Patient remains unresponsive to stimulation, no gag reflexes, bilateral pupils 5~6mm ad non-reactive to light. ROM exercises provided per patient tolerance.Pt was assessed for pain using FLACC scale with a score of 0 noted. VS obtained and remain stable at this time. patient is afebrile. Slowly titrating pressors accordingly. Pt repositioned for comfort and safety. Fall, Aspiration, and Skin precautions observed. Pt remains resting in bed; Bed remains in the lowest position with the safety wheels engaged, call light within reach, side rails up x2 and bed alarm activated. Will continue plan of care. Will continue to monitor.
[2020-04-09] VITALS (39 sets, daily range): BP systolic 88–132; BP diastolic 55–80
--- NOTE | 2020-04-09 | NUR ---
NURSE NOTES: Bedside assessment performed. Patient was suctioned and oral care provided. Patient remains unresponsive to stimulation, no gag reflexes, bilateral pupils 5~6mm and non-reactive to light. ROM exercises provided per patient tolerance.Pt was assessed for pain using FLACC scale with a score of 0 noted. VS obtained and remain stable at this time. patient is afebrile. Slowly titrating pressors accordingly. Pt repositioned for comfort and safety. Fall, Aspiration, and Skin precautions observed. Pt remains resting in bed; Bed remains in the lowest position with the safety wheels engaged, call light within reach, side rails up x2 and bed alarm activated. Will continue plan of care. Will continue to monitor.
[2020-04-09] MEDS: Cefepime HCl 2 GM in D5W 55 ML IVPB SCH ×3 (00:15→23:59)
[2020-04-09] MEDS: Albuterol 90mcg Inhaler 8gm INH SCH ×6 (03:02→23:16)
--- NOTE | 2020-04-09 04:00 | NUR ---
NURSE NOTES: Bedside assessment performed. Patient was suctioned. AM care provided. Labs drawn. Patient remains unresponsive to stimulation, no gag reflexes, bilateral pupils 5~6mm ad non-reactive to light. ROM exercises provided per patient tolerance.Pt was assessed for pain using FLACC scale with a score of 0 noted. VS obtained and remain stable at this time. patient is afebrile. Slowly titrating pressors accordingly. Pt repositioned for comfort and safety. Fall, Aspiration, and Skin precautions observed. Pt remains resting in bed; Bed remains in the lowest position with the safety wheels engaged, call light within reach, side rails up x2 and bed alarm activated. Will continue plan of care. Will continue to monitor.
--- NOTE | 2020-04-09 08:00 | NUR ---
NURSE NOTES: Received change of shift report from Adam EARLY. Pt is nonresponsive to painful stimuli. Pupils dilated bilaterally and fixed, left 5mm, right 6mm. Absence of gag reflex. Pt is orally intubated, ETT 7.0 at 23cm lipline with vent settings, AC18, VT 500, Peep 10, FIO2 40%, with bilateral diminished lung sounds. NSR on manager marketing, HR 74 with weak peripheral pulses. Pt is currently maintained on Levophed drip at 20mcg/min to maintain SBP above 90. Levophed is infusing via left UA double lumen PICC line. Pt has also IV fluid, D5W infusing at 125ml/hour. Temp 97.9F axillary. Pt has left nare NGT with feeding Jevity currently placed on hold, due to residuals above 250ml this morning. Abdomen is round, distended, slightly hard to touch, with hypoactive bowel sounds. Lainez catheter is present, draining clear/yellow urine. Skin alterations are noted, sacral/buttocks full thickness pressure ulcer and bilateral heels DTI, covered with optifoam dressings. Pt is on pressure release mattress. HOB at 30 degrees, bed locked, in lowest position, three side rails up, alarm on. Will continue with plan of care.
--- NOTE | 2020-04-09 08:32 | Critical Care Progress Note ---
Assessment/Plan Assessment/Plan IMPRESSION: 1. COPD 2. Hypercapnia and hypoxemia. 3. Pneumonia,[facility] 4. Hypothyroidism. 5. History of allergies. 6. Severe protein-calorie malnutrition. 7. Mild leukocytosis. 8. acute respiratory failure/ failed extubation 9. pulmonary congestion 10. hypernatremia 11. brain care noted brain ; awaiting withdrawal of care respiratory care as is hemodynamics noted reviewed changes; monitor secretions- discussed care supportive care as is off load aspiration precautions position change and off load oxygen therapy as is terminal extubation pending medications/laboratory data/nursing notes/ICU care reviewed in detail note reviewed and edited care discussed with RN and RT ICU time spent >40 minutes Critical Care - Subjective Interval Events: brain events noted ROS Limited/Unobtainable: Yes Condition: critical EKG Rhythm: Sinus Rhythm I&O: Intake and Output 04/08/20 04/09/20 19:00 07:00 Intake Total 2365.9375 ml 1571.25 ml Output Total 1700 ml 1600 ml Balance 665.9375 ml -28.75 ml IV Total 2215.9375 ml 1571.25 ml Other 150 ml Output Urine Total 1700 ml 1600 ml Critical Care - Objective ET-Tube: 7.5 ET Position: 23 Last 24 Hour Vital Signs Date Time Temp Pulse Resp B/P (MAP) Pulse Ox O2 Delivery O2 Flow Rate FiO2 04/09/20 06:54 87 18 99 Mechanical Ventilator 45 91 18 45 04/09/20 06:00 98/68 04/09/20 06:00 89 18 96/72 (80) 100 04/09/20 05:30 90 18 98/70 (79) 100 04/09/20 05:00 99/71 04/09/20 05:00 91 18 100/71 (81) 99 04/09/20 04:30 91 18 89/68 (75) 99 04/09/20 04:00 98.8 92 18 89/61 (70) 99 04/09/20 04:00 Mechanical Ventilator 04/09/20 04:00 40 04/09/20 04:00 89/69 04/09/20 04:00 96 04/09/20 03:30 92 18 94/63 (73) 100 04/09/20 03:00 107/68 04/09/20 03:00 90 17 107/70 (82) 100 04/09/20 02:40 91 18 99 Mechanical Ventilator 45 91 18 45 04/09/20 02:30 91 18 88/61 (70) 99 04/09/20 02:00 96/65 04/09/20 02:00 92 18 92/65 (74) 98 04/09/20 01:30 91 18 91/65 (74) 98 04/09/20 01:00 100/70 04/09/20 01:00 92 18 92/55 (67) 98 04/09/20 00:30 90 18 96/59 (71) 98 04/09/20 00:00 98.4 90 18 98/66 (77) 100 04/09/20 00:00 Mechanical Ventilator 04/09/20 00:00 96/50 04/08/20 23:10 90 18 100 Mechanical Ventilator 45 90 18 45 04/08/20 23:00 90 04/08/20 23:00 90/61 04/08/20 23:00 89 18 90/61 (71) 100 04/08/20 22:30 90 18 92/62 (72) 100 04/08/20 22:00 90 18 91/70 (77) 100 04/08/20 22:00 91/70 04/08/20 21:40 93/70 04/08/20 21:30 90 18 93/70 (78) 100 04/08/20 21:00 90 18 95/67 (76) 100 04/08/20 21:00 93/70 04/08/20 20:30 90 18 105/67 (80) 100 04/08/20 20:00 45 04/08/20 20:00 Mechanical Ventilator 04/08/20 20:00 100/69 04/08/20 20:00 98.0 90 18 100/69 (79) 100 04/08/20 19:45 92 18 112/72 (85) 100 04/08/20 19:30 93 18 97/69 (78) 100 04/08/20 19:14 94 04/08/20 19:10 95 18 100 Mechanical Ventilator 45 95 18 45 04/08/20 19:00 92/73 04/08/20 19:00 95 18 92/73 (79) 100 04/08/20 18:45 96 18 98/70 (79) 100 04/08/20 18:30 99 18 94/69 (77) 100 04/08/20 18:15 99 18 97/66 (76) 99 04/08/20 18:00 100 18 96/65 (75) 98 04/08/20 18:00 97/66 04/08/20 17:45 130/92 04/08/20 17:45 109 19 130/92 (105) 98 04/08/20 17:30 89 18 115/75 (88) 100 04/08/20 17:15 89 18 119/76 (90) 100 04/08/20 17:00 119/76 04/08/20 17:00 98.6 90 18 115/75 (88) 100 04/08/20 16:02 89 04/08/20 16:00 114/75 04/08/20 16:00 45 04/08/20 16:00 89 18 116/71 (86) 100 04/08/20 16:00 Mechanical Ventilator 04/08/20 15:30 90 18 117/77 (90) 100 04/08/20 15:15 90 18 108/72 (84) 100 04/08/20 15:00 108/72 04/08/20 15:00 91 18 108/72 (84) 100 04/08/20 14:45 92 18 111/72 (85) 100 04/08/20 14:41 95 18 100 Mechanical Ventilator 45 94 18 45 04/08/20 14:30 96 18 137/86 (103) 100 04/08/20 14:30 137/86 04/08/20 14:00 114/76 04/08/20 14:00 93 18 114/76 (89) 100 04/08/20 13:30 93 18 115/75 (88) 100 04/08/20 13:00 111/70 04/08/20 13:00 92 18 111/70 (84) 100 04/08/20 12:30 94 18 106/68 (81) 100 04/08/20 12:00 98.5 98 18 125/78 (94) 100 04/08/20 12:00 125/78 04/08/20 12:00 Mechanical Ventilator 04/08/20 11:30 92 18 116/75 (89) 100 04/08/20 11:27 91 04/08/20 11:22 98/67 04/08/20 11:11 91 18 100 Mechanical Ventilator 45 91 18 40 04/08/20 11:00 82/52 04/08/20 11:00 92 18 104/70 (81) 100 04/08/20 10:30 93 18 102/72 (82) 100 04/08/20 10:12 40 04/08/20 10:11 40 04/08/20 10:00 101/65 04/08/20 10:00 96 14 96/64 (75) 100 04/08/20 09:30 97 14 97/56 (70) 100 04/08/20 09:00 96/56 04/08/20 09:00 96/56 04/08/20 09:00 98 14 93/54 (67) 100 Labs: Labs Test 04/07/20 09:00 04/08/20 04:22 04/08/20 09:38 04/08/20 14:23 White Blood Count 11.6 K/UL (4.8-10.8) 15.2 K/UL (4.8-10.8) Red Blood Count 3.12 M/UL (4.20-5.40) 3.53 M/UL (4.20-5.40) Hemoglobin 9.5 G/DL (12.0-16.0) 10.8 G/DL (12.0-16.0) Hematocrit 31.6 % (37.0-47.0) 36.3 % (37.0-47.0) Mean Corpuscular Volume 101 FL (80-99) 103 FL (80-99) Mean Corpuscular Hemoglobin 30.5 PG (27.0-31.0) 30.6 PG (27.0-31.0) Mean Corpuscular Hemoglobin Concent 30.2 G/DL (32.0-36.0) 29.8 G/DL (32.0-36.0) Red Cell Distribution Width 15.2 % (11.6-14.8) 15.4 % (11.6-14.8) Platelet Count 156 K/UL (150-450) 176 K/UL (150-450) Mean Platelet Volume 8.4 FL (6.5-10.1) 9.0 FL (6.5-10.1) Neutrophils (%) (Auto) 75.4 % (45.0-75.0) 77.2 % (45.0-75.0) Lymphocytes (%) (Auto) 17.6 % (20.0-45.0) 15.8 % (20.0-45.0) Monocytes (%) (Auto) 3.2 % (1.0-10.0) 4.4 % (1.0-10.0) Eosinophils (%) (Auto) 3.0 % (0.0-3.0) 2.0 % (0.0-3.0) Basophils (%) (Auto) 0.8 % (0.0-2.0) 0.7 % (0.0-2.0) Sodium Level 139 MMOL/L (136-145) 144 MMOL/L (136-145) Potassium Level 3.3 MMOL/L (3.5-5.1) 4.2 MMOL/L (3.5-5.1) Chloride Level 107 MMOL/L (98-107) 111 MMOL/L (98-107) Carbon Dioxide Level 24 MMOL/L (21-32) 25 MMOL/L (21-32) Anion Gap 8 mmol/L (5-15) 8 mmol/L (5-15) Blood Urea Nitrogen 24 mg/dL (7-18) 26 mg/dL (7-18) Creatinine 1.2 MG/DL (0.55-1.30) 1.2 MG/DL (0.55-1.30) Estimat Glomerular Filtration Rate 45.7 mL/min (>60) 45.7 mL/min (>60) Glucose Level 466 MG/DL (74-106) 135 MG/DL (74-106) Calcium Level 8.5 MG/DL (8.5-10.1) 9.1 MG/DL (8.5-10.1) Total Bilirubin 0.3 MG/DL (0.2-1.0) Aspartate Amino Transf (AST/SGOT) 69 U/L (15-37) Alanine Aminotransferase (ALT/SGPT) 33 U/L (12-78) Alkaline Phosphatase 148 U/L (46-116) Total Protein 5.3 G/DL (6.4-8.2) Albumin 0.9 G/DL (3.4-5.0) Globulin 4.4 g/dL Albumin/Globulin Ratio 0.2 (1.0-2.7) Arterial Blood pH 7.223 (7.350-7.450) 7.304 (7.350-7.450) Arterial Blood Partial Pressure CO2 53.8 mmHg (35.0-45.0) 44.3 mmHg (35.0-45.0) Arterial Blood Partial Pressure O2 89.6 mmHg (75.0-100.0) 95.1 mmHg (75.0-100.0) Arterial Blood HCO3 21.7 mmol/L (22.0-26.0) 21.5 mmol/L (22.0-26.0) Arterial Blood Oxygen Saturation 96.2 % (95-100) 97.2 % (95-100) Arterial Blood Base Excess -6.1 (-2-2) -4.7 (-2-2) Keith Test N/a N/a Objective: GENERAL: An ill-appearing female. NAD on Vent NECK: Supple. No adenopathy. LUNGS: Coarse breath sounds. Moderate air entry. ETT in place; no rhonchi or wheeze CARDIAC: S1, S2. Regular rate and rhythm without murmur. ABDOMEN: Soft, nontender, nondistended. feeding tube EXTREMITIES: No cyanosis, clubbing, or edema. obtunded on the vent reviewed and edited Javier Blake MD Apr 09, 2020 08:32
--- NOTE | 2020-04-09 09:00 | NUR ---
NURSE NOTES: Representatives from [facility] [employer] and organ donation are here at the nurse's station to receive update on pt's condition. Addendum: 04/09/20 at 1538 by MICHELINE HOSKINS RN Order in place for physician consult/Dr. Armas for neuro consult/follow up EEG results and regarding pt's comatose status. Addendum: 04/09/20 at 1543 by MICHELINE HOSKINS RN Dr Armas was contacted by charge nurse Paula EARLY, and message left regarding neuro consult/follow up.
[2020-04-09] MEDS ORDERED: NS 275ml ONE (09:52)
[2020-04-09] MEDS ORDERED: D5W 550ml IV ONE (09:52)
[2020-04-09] MEDS ORDERED: Sterile Water Irrig 1000ml IRRIG ONE (09:52)
[2020-04-09] MEDS: Midodrine 10mg tab NG SCH ×3 (09:54→18:31)
[2020-04-09] MEDS: Zinc Sulfate 220mg NG SCH (09:54)
[2020-04-09] MEDS: Multivitamins W/Minerals 15 ML UDC NG SCH (09:55)
[2020-04-09] MEDS: Lactulose 20gm/30ml UDC NG SCH ×3 (09:55→18:31)
[2020-04-09] MEDS: Pantoprazole Inj IVP SCH (09:55)
[2020-04-09] MEDS: Ascorbic Acid 500mg tab NG SCH (09:55)
[2020-04-09] MEDS: Heparin 5000 units/ml inj SUBQ SCH ×2 (09:56→20:37)
--- NOTE | 2020-04-09 10:00 | NUR ---
NURSE NOTES: AM meds were administered. Levophed is titrated down to 16mcg/min to maintain SBP above 90. Pt was repositioned. Pt was seen by Dr Tucker. aware of feeding on hold due to high residuals above 250ml. Addendum: 04/09/20 at 1528 by MICHELINE HOSKINS RN Per Dr. Tucker's order, NGT feeding is now canceled, NGT tube to remain in place for meds, however no feeding at this time. Also, received order from to switch IV fluid to D5 0.45NS @100ml/hour.
--- NOTE | 2020-04-09 10:19 | NUR ---
*-* INSURANCE *-* UPDATED CLINICALS HAVE BEEN FAXED TO; [facility] F: [phone] REF #[id number]
--- NOTE | 2020-04-09 10:42 | General Progress Note ---
Assessment/Plan Status: stable, progressing Assessment/Plan: Assessment - Resp failure - dysphagia / NGT / residuals - COPD - Clinical brain - Anemia - leukocytosis - hypernatremia, improved - sepsis - hypothyroid - poor prognosis Recommendations - pulmonary f/u - Change IV to D5 1 NS - abx - d/c feeds for now - elevate HOB - follow labs and exam - abx - terminal extubation Subjective Allergies: Coded Allergies: PENICILLINS (Verified Allergy, Unknown, 03/11/20) Subjective Above noted seen in ICU on vent d/w RN - more residuals noted terminal extubation pending Objective Last 24 Hour Vital Signs Date Time Temp Pulse Resp B/P (MAP) Pulse Ox O2 Delivery O2 Flow Rate FiO2 04/09/20 09:30 82 18 108/75 (86) 100 04/09/20 09:00 84 18 107/68 (81) 100 04/09/20 08:30 85 18 105/75 (85) 100 04/09/20 08:00 83 04/09/20 08:00 85 18 106/68 (81) 100 04/09/20 07:30 96 18 103/71 (82) 100 04/09/20 07:00 87 18 106/71 (83) 100 04/09/20 06:54 87 18 99 Mechanical Ventilator 45 91 18 45 04/09/20 06:00 98/68 04/09/20 06:00 89 18 96/72 (80) 100 04/09/20 05:30 90 18 98/70 (79) 100 04/09/20 05:00 99/71 04/09/20 05:00 91 18 100/71 (81) 99 04/09/20 04:30 91 18 89/68 (75) 99 04/09/20 04:00 98.8 92 18 89/61 (70) 99 04/09/20 04:00 Mechanical Ventilator 04/09/20 04:00 40 04/09/20 04:00 89/69 04/09/20 04:00 96 04/09/20 03:30 92 18 94/63 (73) 100 04/09/20 03:00 107/68 04/09/20 03:00 90 17 107/70 (82) 100 04/09/20 02:40 91 18 99 Mechanical Ventilator 45 91 18 45 04/09/20 02:30 91 18 88/61 (70) 99 04/09/20 02:00 96/65 04/09/20 02:00 92 18 92/65 (74) 98 04/09/20 01:30 91 18 91/65 (74) 98 04/09/20 01:00 100/70 04/09/20 01:00 92 18 92/55 (67) 98 04/09/20 00:30 90 18 96/59 (71) 98 04/09/20 00:00 98.4 90 18 98/66 (77) 100 04/09/20 00:00 Mechanical Ventilator 04/09/20 00:00 96/50 04/08/20 23:10 90 18 100 Mechanical Ventilator 45 90 18 45 04/08/20 23:00 90 04/08/20 23:00 90/61 04/08/20 23:00 89 18 90/61 (71) 100 04/08/20 22:30 90 18 92/62 (72) 100 04/08/20 22:00 90 18 91/70 (77) 100 04/08/20 22:00 91/70 04/08/20 21:40 93/70 04/08/20 21:30 90 18 93/70 (78) 100 04/08/20 21:00 90 18 95/67 (76) 100 04/08/20 21:00 93/70 04/08/20 20:30 90 18 105/67 (80) 100 04/08/20 20:00 45 04/08/20 20:00 Mechanical Ventilator 04/08/20 20:00 100/69 04/08/20 20:00 98.0 90 18 100/69 (79) 100 04/08/20 19:45 92 18 112/72 (85) 100 04/08/20 19:30 93 18 97/69 (78) 100 04/08/20 19:14 94 04/08/20 19:10 95 18 100 Mechanical Ventilator 45 95 18 45 04/08/20 19:00 92/73 04/08/20 19:00 95 18 92/73 (79) 100 04/08/20 18:45 96 18 98/70 (79) 100 04/08/20 18:30 99 18 94/69 (77) 100 04/08/20 18:15 99 18 97/66 (76) 99 04/08/20 18:00 100 18 96/65 (75) 98 04/08/20 18:00 97/66 04/08/20 17:45 130/92 04/08/20 17:45 109 19 130/92 (105) 98 04/08/20 17:30 89 18 115/75 (88) 100 04/08/20 17:15 89 18 119/76 (90) 100 04/08/20 17:00 119/76 04/08/20 17:00 98.6 90 18 115/75 (88) 100 04/08/20 16:02 89 04/08/20 16:00 114/75 04/08/20 16:00 45 04/08/20 16:00 89 18 116/71 (86) 100 04/08/20 16:00 Mechanical Ventilator 04/08/20 15:30 90 18 117/77 (90) 100 04/08/20 15:15 90 18 108/72 (84) 100 04/08/20 15:00 108/72 04/08/20 15:00 91 18 108/72 (84) 100 04/08/20 14:45 92 18 111/72 (85) 100 04/08/20 14:41 95 18 100 Mechanical Ventilator 45 94 18 45 04/08/20 14:30 96 18 137/86 (103) 100 04/08/20 14:30 137/86 04/08/20 14:00 114/76 04/08/20 14:00 93 18 114/76 (89) 100 04/08/20 13:30 93 18 115/75 (88) 100 04/08/20 13:00 111/70 04/08/20 13:00 92 18 111/70 (84) 100 04/08/20 12:30 94 18 106/68 (81) 100 04/08/20 12:00 98.5 98 18 125/78 (94) 100 04/08/20 12:00 125/78 04/08/20 12:00 Mechanical Ventilator 04/08/20 11:30 92 18 116/75 (89) 100 04/08/20 11:27 91 04/08/20 11:22 98/67 04/08/20 11:11 91 18 100 Mechanical Ventilator 45 91 18 40 04/08/20 11:00 82/52 04/08/20 11:00 92 18 104/70 (81) 100 Intake and Output 04/08/20 04/09/20 19:00 07:00 Intake Total 2365.9375 ml 1571.25 ml Output Total 1700 ml 1600 ml Balance 665.9375 ml -28.75 ml IV Total 2215.9375 ml 1571.25 ml Other 150 ml Output Urine Total 1700 ml 1600 ml Laboratory Tests 04/08/20 14:23: Arterial Blood pH 7.304L, Arterial Blood Partial Pressure CO2 44.3, Arterial Blood Partial Pressure O2 95.1, Arterial Blood HCO3 21.5L, Arterial Blood Oxygen Saturation 97.2, Arterial Blood Base Excess -4.7L, Keith Test N/a Height (Feet): 5 Height (Inches): 5.00 Weight (Pounds): 126 Objective Thin WW NCAT (+) ETT, NGT supple coarse BS RR abd soft NT ND no edema Douglas Tucker MD Apr 09, 2020 10:42
--- NOTE | 2020-04-09 10:46 | Infectious Diseases Prog Note ---
Assessment/Plan Assessment/Plan antibiotics : cefepime A 1. klebsiella pneumonia COVID 19 test negative x 2 2. respiratory failure 3. COPD 4. leucocytosis 5. hypothyroidism 6. schizophrenia 7. shock P 1. continue iv cefepime 2. will follow up cultures 3. terminal extubation planned Subjective ROS Limited/Unobtainable: Yes Allergies: Coded Allergies: PENICILLINS (Verified Allergy, Unknown, 03/11/20) Objective Last 24 Hour Vital Signs Date Time Temp Pulse Resp B/P (MAP) Pulse Ox O2 Delivery O2 Flow Rate FiO2 04/09/20 09:30 82 18 108/75 (86) 100 04/09/20 09:00 84 18 107/68 (81) 100 04/09/20 08:30 85 18 105/75 (85) 100 04/09/20 08:00 83 04/09/20 08:00 85 18 106/68 (81) 100 04/09/20 07:30 96 18 103/71 (82) 100 04/09/20 07:00 87 18 106/71 (83) 100 04/09/20 06:54 87 18 99 Mechanical Ventilator 45 91 18 45 04/09/20 06:00 98/68 04/09/20 06:00 89 18 96/72 (80) 100 04/09/20 05:30 90 18 98/70 (79) 100 04/09/20 05:00 99/71 04/09/20 05:00 91 18 100/71 (81) 99 04/09/20 04:30 91 18 89/68 (75) 99 04/09/20 04:00 98.8 92 18 89/61 (70) 99 04/09/20 04:00 Mechanical Ventilator 04/09/20 04:00 40 04/09/20 04:00 89/69 04/09/20 04:00 96 04/09/20 03:30 92 18 94/63 (73) 100 04/09/20 03:00 107/68 04/09/20 03:00 90 17 107/70 (82) 100 04/09/20 02:40 91 18 99 Mechanical Ventilator 45 91 18 45 04/09/20 02:30 91 18 88/61 (70) 99 04/09/20 02:00 96/65 04/09/20 02:00 92 18 92/65 (74) 98 04/09/20 01:30 91 18 91/65 (74) 98 04/09/20 01:00 100/70 04/09/20 01:00 92 18 92/55 (67) 98 04/09/20 00:30 90 18 96/59 (71) 98 04/09/20 00:00 98.4 90 18 98/66 (77) 100 04/09/20 00:00 Mechanical Ventilator 04/09/20 00:00 96/50 04/08/20 23:10 90 18 100 Mechanical Ventilator 45 90 18 45 04/08/20 23:00 90 04/08/20 23:00 90/61 04/08/20 23:00 89 18 90/61 (71) 100 04/08/20 22:30 90 18 92/62 (72) 100 04/08/20 22:00 90 18 91/70 (77) 100 04/08/20 22:00 91/70 04/08/20 21:40 93/70 04/08/20 21:30 90 18 93/70 (78) 100 04/08/20 21:00 90 18 95/67 (76) 100 04/08/20 21:00 93/70 04/08/20 20:30 90 18 105/67 (80) 100 04/08/20 20:00 45 04/08/20 20:00 Mechanical Ventilator 04/08/20 20:00 100/69 04/08/20 20:00 98.0 90 18 100/69 (79) 100 04/08/20 19:45 92 18 112/72 (85) 100 04/08/20 19:30 93 18 97/69 (78) 100 04/08/20 19:14 94 04/08/20 19:10 95 18 100 Mechanical Ventilator 45 95 18 45 04/08/20 19:00 92/73 04/08/20 19:00 95 18 92/73 (79) 100 04/08/20 18:45 96 18 98/70 (79) 100 04/08/20 18:30 99 18 94/69 (77) 100 04/08/20 18:15 99 18 97/66 (76) 99 04/08/20 18:00 100 18 96/65 (75) 98 04/08/20 18:00 97/66 04/08/20 17:45 130/92 04/08/20 17:45 109 19 130/92 (105) 98 04/08/20 17:30 89 18 115/75 (88) 100 04/08/20 17:15 89 18 119/76 (90) 100 04/08/20 17:00 119/76 04/08/20 17:00 98.6 90 18 115/75 (88) 100 04/08/20 16:02 89 04/08/20 16:00 114/75 04/08/20 16:00 45 04/08/20 16:00 89 18 116/71 (86) 100 04/08/20 16:00 Mechanical Ventilator 04/08/20 15:30 90 18 117/77 (90) 100 04/08/20 15:15 90 18 108/72 (84) 100 04/08/20 15:00 108/72 04/08/20 15:00 91 18 108/72 (84) 100 04/08/20 14:45 92 18 111/72 (85) 100 04/08/20 14:41 95 18 100 Mechanical Ventilator 45 94 18 45 04/08/20 14:30 96 18 137/86 (103) 100 04/08/20 14:30 137/86 04/08/20 14:00 114/76 04/08/20 14:00 93 18 114/76 (89) 100 04/08/20 13:30 93 18 115/75 (88) 100 04/08/20 13:00 111/70 04/08/20 13:00 92 18 111/70 (84) 100 04/08/20 12:30 94 18 106/68 (81) 100 04/08/20 12:00 98.5 98 18 125/78 (94) 100 04/08/20 12:00 125/78 04/08/20 12:00 Mechanical Ventilator 04/08/20 11:30 92 18 116/75 (89) 100 04/08/20 11:27 91 04/08/20 11:22 98/67 04/08/20 11:11 91 18 100 Mechanical Ventilator 45 91 18 40 04/08/20 11:00 82/52 04/08/20 11:00 92 18 104/70 (81) 100 Height (Feet): 5 Height (Inches): 5.00 Weight (Pounds): 126 HEENT: other - intubated Respiratory/Chest: lungs clear Cardiovascular: normal rate, regular rhythm, no gallop/murmur Abdomen: soft, non tender Extremities: no edema, other - left arm PICC Laboratory Tests Test 04/08/20 14:23 Arterial Blood pH 7.304 (7.350-7.450) Arterial Blood Partial Pressure CO2 44.3 mmHg (35.0-45.0) Arterial Blood Partial Pressure O2 95.1 mmHg (75.0-100.0) Arterial Blood HCO3 21.5 mmol/L (22.0-26.0) L Arterial Blood Oxygen Saturation 97.2 % (95-100) Arterial Blood Base Excess -4.7 (-2-2) L Keith Test N/a Current Medications Medications (Trade) Dose Ordered Sig/Ranjeet Route PRN Reason Start Time Stop Time Status Last Admin Dose Admin Acetaminophen (Tylenol) 650 mg Q4H PRN NG Mild Pain (1-3)/Fever > 100.5 03/22/20 15:30 04/10/20 19:29 Albuterol Sulfate (Proventil MDI) 2 puff Q4HRT INH 03/18/20 15:00 06/13/20 02:59 04/09/20 06:54 Ascorbic Acid (Vitamin C) 500 mg DAILY NG 03/23/20 09:00 04/11/20 08:59 04/09/20 09:55 Atropine Sulfate (Atropine) 1 mg Q1H PRN IVP HR <40BPM 03/18/20 13:30 04/17/20 13:29 03/31/20 14:58 Cefepime HCl 2 gm/ Dextrose 55 ml @ 110 mls/hr Q12H IVPB 04/02/20 12:00 04/13/20 11:59 04/09/20 00:15 Chlorhexidine Gluconate (Mary-Hex 2%) 1 applic DAILY@2000 TOPIC 03/21/20 20:00 06/19/20 19:59 04/08/20 20:20 Clonidine HCl (Catapres Tab) 0.1 mg Q4H PRN NG For High Blood Pressure 03/31/20 16:45 06/29/20 16:44 03/31/20 16:45 Dextrose 1,000 ml @ 125 mls/hr Q8H IV 04/04/20 11:30 05/04/20 11:29 04/09/20 04:30 Heparin Sodium (Porcine) (Heparin 5000 units/ml) 5,000 units EVERY 12 HOURS SUBQ 03/18/20 21:00 04/25/20 20:59 04/09/20 09:56 Lactulose (Cephulac) 30 gm THREE TIMES A DAY NG 03/22/20 18:00 04/18/20 09:14 04/09/20 09:55 Levothyroxine Sodium (Synthroid) 150 mcg DAILY@0630 ORAL 03/31/20 06:30 04/30/20 06:29 04/09/20 05:50 Loratadine (Claritin 10mg) 10 mg DAILY ORAL 03/23/20 09:00 04/11/20 08:59 04/09/20 09:54 Magnesium Hydroxide (Mom) 30 ml HSPRN PRN NG Constipation 03/22/20 15:30 04/17/20 13:59 04/03/20 17:15 Midodrine (Pro-Amatine) 10 mg THREE TIMES A DAY NG 03/24/20 13:00 06/21/20 08:59 04/09/20 09:54 Multivitamins (Multivitamins W/ Minerals 15ml Liquid) 15 ml DAILY NG 03/23/20 09:00 04/11/20 08:59 04/09/20 09:55 Norepinephrine Bitartrate 16 mg/ Dextrose 500 ml @ 0 mls/hr Q24H IV 04/07/20 15:00 05/07/20 14:59 04/08/20 21:40 Pantoprazole (Protonix) 40 mg DAILY IVP 03/23/20 09:00 04/22/20 08:59 04/09/20 09:55 Phenylephrine HCl 50 mg/Dextrose 250 ml @ 0 mls/hr Q24H IV 04/01/20 12:00 05/01/20 11:59 04/03/20 23:36 Zinc Sulfate (Zinc Sulfate) 220 mg DAILY NG 03/23/20 09:00 06/10/20 08:59 04/09/20 09:54 Eh Bailey MD Apr 09, 2020 10:46
--- NOTE | 2020-04-09 11:40 | Surgery Progress Note ---
Surgery Progress Note Subjective Additional Comments one legacy eval terminal extubation no reasonable function Objective Last 24 Hour Vital Signs Date Time Temp Pulse Resp B/P (MAP) Pulse Ox O2 Delivery O2 Flow Rate FiO2 04/09/20 10:51 84 18 99 Mechanical Ventilator 45 91 18 45 04/09/20 09:30 82 18 108/75 (86) 100 04/09/20 09:00 84 18 107/68 (81) 100 04/09/20 08:30 85 18 105/75 (85) 100 04/09/20 08:00 83 04/09/20 08:00 85 18 106/68 (81) 100 04/09/20 07:30 96 18 103/71 (82) 100 04/09/20 07:00 87 18 106/71 (83) 100 04/09/20 06:54 87 18 99 Mechanical Ventilator 45 91 18 45 04/09/20 06:00 98/68 04/09/20 06:00 89 18 96/72 (80) 100 04/09/20 05:30 90 18 98/70 (79) 100 04/09/20 05:00 99/71 04/09/20 05:00 91 18 100/71 (81) 99 04/09/20 04:30 91 18 89/68 (75) 99 04/09/20 04:00 98.8 92 18 89/61 (70) 99 04/09/20 04:00 Mechanical Ventilator 04/09/20 04:00 40 04/09/20 04:00 89/69 04/09/20 04:00 96 04/09/20 03:30 92 18 94/63 (73) 100 04/09/20 03:00 107/68 04/09/20 03:00 90 17 107/70 (82) 100 04/09/20 02:40 91 18 99 Mechanical Ventilator 45 91 18 45 04/09/20 02:30 91 18 88/61 (70) 99 04/09/20 02:00 96/65 04/09/20 02:00 92 18 92/65 (74) 98 04/09/20 01:30 91 18 91/65 (74) 98 04/09/20 01:00 100/70 04/09/20 01:00 92 18 92/55 (67) 98 04/09/20 00:30 90 18 96/59 (71) 98 04/09/20 00:00 98.4 90 18 98/66 (77) 100 04/09/20 00:00 Mechanical Ventilator 04/09/20 00:00 96/50 04/08/20 23:10 90 18 100 Mechanical Ventilator 45 90 18 45 04/08/20 23:00 90 04/08/20 23:00 90/61 04/08/20 23:00 89 18 90/61 (71) 100 04/08/20 22:30 90 18 92/62 (72) 100 04/08/20 22:00 90 18 91/70 (77) 100 04/08/20 22:00 91/70 04/08/20 21:40 93/70 04/08/20 21:30 90 18 93/70 (78) 100 04/08/20 21:00 90 18 95/67 (76) 100 04/08/20 21:00 93/70 04/08/20 20:30 90 18 105/67 (80) 100 04/08/20 20:00 45 04/08/20 20:00 Mechanical Ventilator 04/08/20 20:00 100/69 04/08/20 20:00 98.0 90 18 100/69 (79) 100 04/08/20 19:45 92 18 112/72 (85) 100 04/08/20 19:30 93 18 97/69 (78) 100 04/08/20 19:14 94 04/08/20 19:10 95 18 100 Mechanical Ventilator 45 95 18 45 04/08/20 19:00 92/73 04/08/20 19:00 95 18 92/73 (79) 100 04/08/20 18:45 96 18 98/70 (79) 100 04/08/20 18:30 99 18 94/69 (77) 100 04/08/20 18:15 99 18 97/66 (76) 99 04/08/20 18:00 100 18 96/65 (75) 98 04/08/20 18:00 97/66 04/08/20 17:45 130/92 04/08/20 17:45 109 19 130/92 (105) 98 04/08/20 17:30 89 18 115/75 (88) 100 04/08/20 17:15 89 18 119/76 (90) 100 04/08/20 17:00 119/76 7/5/20 17:00 98.6 90 18 115/75 (88) 100 04/08/20 16:02 89 04/08/20 16:00 114/75 04/08/20 16:00 45 04/08/20 16:00 89 18 116/71 (86) 100 04/08/20 16:00 Mechanical Ventilator 04/08/20 15:30 90 18 117/77 (90) 100 04/08/20 15:15 90 18 108/72 (84) 100 04/08/20 15:00 108/72 04/08/20 15:00 91 18 108/72 (84) 100 04/08/20 14:45 92 18 111/72 (85) 100 04/08/20 14:41 95 18 100 Mechanical Ventilator 45 94 18 45 04/08/20 14:30 96 18 137/86 (103) 100 04/08/20 14:30 137/86 04/08/20 14:00 114/76 04/08/20 14:00 93 18 114/76 (89) 100 04/08/20 13:30 93 18 115/75 (88) 100 04/08/20 13:00 111/70 04/08/20 13:00 92 18 111/70 (84) 100 04/08/20 12:30 94 18 106/68 (81) 100 04/08/20 12:00 98.5 98 18 125/78 (94) 100 04/08/20 12:00 125/78 04/08/20 12:00 Mechanical Ventilator I&O Intake and Output 04/08/20 04/09/20 19:00 07:00 Intake Total 2365.9375 ml 1571.25 ml Output Total 1700 ml 1600 ml Balance 665.9375 ml -28.75 ml IV Total 2215.9375 ml 1571.25 ml Other 150 ml Output Urine Total 1700 ml 1600 ml Dressing: other Wound: other Drains: other Cardiovascular: RSR Respiratory: decreased breath sounds Abdomen: soft, non-tender, present bowel sounds Extremities: no cyanosis Laboratory Tests Test 04/08/20 14:23 Arterial Blood pH 7.304 (7.350-7.450) Arterial Blood Partial Pressure CO2 44.3 mmHg (35.0-45.0) Arterial Blood Partial Pressure O2 95.1 mmHg (75.0-100.0) Arterial Blood HCO3 21.5 mmol/L (22.0-26.0) L Arterial Blood Oxygen Saturation 97.2 % (95-100) Arterial Blood Base Excess -4.7 (-2-2) L Keith Test N/a Plan Problems: (1) Malnutrition Assessment & Plan: not eating enough TF started adv as tolerated bowel regimen worsening prognosis guarded DDAILY ESTIMATED NEEDS: Needs based on Wound, pulmonary / 56kg 25-35 kcals/kg 8629-9019 total kcals 1.25-1.8 g protein/kg 70-100 g total protein 25-30 mL/kg 5214-2972 total fluid mLs NUTRITION DIAGNOSIS: * Swallowing difficulty R/T dysphagia as evidenced by GRAIN II FARMWORKER w/ rec for NPO, now on NGT feeds. * Increased kcal/prot/micronutrients needs R/T wound healing as evidenced by pt admitted w/ multiple wounds including full thickness wound @ sacrum, TPI wound @ L Gluteal cheek, and non-Blanchable erythema @ BL heels. CURRENT TF:Jevity 1.2 @30ml/hr ENTERAL NUTRITION RECOMMENDATIONS: JEVITY 1.2 goal of 55ml/hr x24 hrs to provide 1320ml, 1584 kcal, 73g pro, 1065ml free H2O - rec to INCREASE current TF as tolerated to goal of 55ml/hr to better meet est needs. - flush per , CHRISTINA over 30 degrees ADDITIONAL RECOMMENDATIONS: * Per SNF: HT=66" GJ=321jaf (03/07/20) * Wound healing: continue MVI, Vit C, and ZnSO4 * VIA NGT-> add TONI BID for wound care TF recs as above * Monitor lytes, replete as needed THIS 60 Y.O.M. WAS ADMITTED WITH ACUTE ISSUES - FEVER, HYPOXIC WITH LOW 02 SATS ON NON-REBREATHER, RESP RATE 18 BPM INITIALLY PER MEDICAL RECORD. PER RN, THE PATIENT HAD A RAPID RESPOSE THIS MORNING (DESAT TO 90S AND RAPID RESP RATE). H/O COPD, CARDIAC DZ, HYPOTHYROIDISM, HTN, ALLERGIC RHINITIS, SCHIZOPHRENIA (ON OLANZAPINE AT SNF), BASELINE NONVERBAL. PER POLST FULL TX BUT NO INFORMATION REGARDING TUBE FEEDING PREFERENCES. AT SNF ON A REGULAR DIET TEXTURE AND THIN LIQUIDS WITH PROSTAT SF DRINK WITH MEALS. NOW ON A REGULAR TEXTURE DIET AND THIN LIQUIDS BUT DID NOT TAKE ANY PO. PER RNLAURIE, THE PT UNABLE TO TAKE LARGE PILLS BUT APPEARED TO TOLERATE CRUSHED MEDS WITH APPLESAUCE W/O OVERT ASPIRATION. PATIENT SEEN WITH RTFUNMI. PER RT RESP RATE 22 BPM AND NOT ABLE TO ongoing unintelligible confabulations. Patient did request a sandwich, however, not appropriate for regular texture at this time. VITALS ON 2 L NASAL CANNULA: HR: 73; RR: 20; SP02: 95% Patient's oral hygiene is improving, ongoing poor speech intelligibility which appears to be more due to poor articulation precision/oral motor coordination versus 2/2 dry mouth. CXR on 03/14/20: Findings: Interim considerable improvement of previously demonstrated left lower lobe infiltrate. There is a residual disease in the retrocardiac region as well as generalized reticular interstitial opacities throughout the left mid and lower lung. There is questionably a 3 cm spiculated opacity projected over the apex. Minimal right mid and lower lung reticular opacities are also demonstrated. There is some right midlung atelectasis versus thickening of the minor fissure. The heart size is normal. The pleural spaces are clear Impression: Considerable improvement the persistence of previously demonstrated left mid and lower lung infiltrates, since prior study of 03/11/2020. GRAIN II FARMWORKER plans to continue to f/u and monitor Patients readiness for PO trials for diet texture upgrade. RN aware of recommendations, plan, and aspiration precautions sign posted above Patients HOB. RECOMMENDATIONS: 1. Continue Moist Puree with [place] Thick Liquids Diet via 1 to 1 careful handfeeding while implementing posted aspiration precautions - RD recommendations appreciated for diet texture/type 2. Patient requires oral hygiene BID + lip moisturizer. (2) Decubitus skin ulcer Assessment & Plan: Pt presented on admission with multiple pressure injuries. Full thickness Pressure injury Sacrococcygeal area. (L)4cm x (W)2.5cm. Base of wound is fatou with scattered slough ,which was easily removed with gentle friction. Wound is now fatou with 25% soft necrosis at distal base of wound. Small amt sanguineous exudate noted.No odor noted. Periwound erythematous and denuded. Two additional Pressure Injuries noted to R gluteal cheek.(Proximal) Base of wound is purple and indurated(L)3cm x (W)1.5cm. Surrounding erythematous and denuded skin (Distal) R gluteus(L)1.4cm x (W)0.6cm. Base of wound is purple, indurated with surrounding erythematous and denuded skin. DTPI L Gluteal cheek (L)1.5cm x (W)1.3cm. Base of wound is indurated, purple with surrounding non-blanching erythema. Additional scattered areas that are maroon in colour noted to L gluteal cheek. Lateral L Heel boggy with non-blanching erythema with delineated margins. (L) 4cm x (W)4.5cm. Lateral R Heel Boggy with non-Blanchable erythema with delineated margins(L) 2.5cm x (W)2.5cm. Tx.Plan: Cleanse Sacrococcygeal area with saline. Apply TheraHoney , Apply Moisture Barrier Paste to Sacrum, R and L Buttocks. Cover entire Area with Optifoam drsgs. Change every 3 days and prn. Apply Moisture Barrier Paste to R and L Buttocks . Cover with Optifoam drsgs. Changee very 3 days and prn. Apply Cavilon Skin Barrier to R and L Trochanteric areas. Cover with Optifoam drsg. Change every 7 days and prn. Apply Cavilon Skin Barrier to R and L Heels. Cover each heel with Optifoam drsg. Change every 7 days and prn. Reposition at least every 2hours or as tolerated. Off-load heels with Pillow. APM/ERIK Mattress. (3) Pneumonia Assessment & Plan: Lungs: There is mild left lower lobe infiltrate consistent with pneumonia. Pleural space: Unremarkable. No pneumothorax. Heart: The heart size is at the upper limits of normal. Mediastinum: Unremarkable. Bones/joints: Unremarkable. IMPRESSION: There is mild left lower lobe infiltrate consistent with pneumonia. worsening on bipap now will monitor closely intubated now 03/21 wean vent Continue weaning. Will hopefully be extubated potentially. Gases noted. (4) COPD (chronic obstructive pulmonary disease) Assessment & Plan: On vent support weaning Potential extubation soon not able to extubate as not safe with current status possible withdraw care as no function possible brain (5) Fever (6) Cardiopulmonary arrest Assessment & Plan: prognosis poor no reasonable functional status one legacy eval terminal extubation (7) Respiratory failure Benyamini,Eddie Apr 09, 2020 11:40
[2020-04-09] MEDS: Norepinephrine Bitartrate 16 MG in D5W 500ml 484 ML IV SCH (11:43)
[2020-04-09] MEDS: Phenylephrine 50 MG in D5W 245 ML IV SCH (11:43)
--- NOTE | 2020-04-09 12:00 | NUR ---
NURSE NOTES: Levophed was titrated down to 14mcg/min to maintain SBP above 90. Pt remains afebrile. Temp 97.7F axillary. VS remain stable, while pt is maintained on same vent settings from this AM, O2Sat 100%. Lainez catheter continues to drain, clear/yellow urine to gravity. IV fluid is now changed to D5 0.45NS infusing at 100ml/hour per MD order.
[2020-04-09] MEDS: D5 1/2NS 1,000 ML IV SCH ×2 (12:14→22:16)
--- NOTE | 2020-04-09 14:00 | NUR ---
NURSE NOTES: Pt's neuro status remains unchanged, nonresponse to painful stimuli, absence of gag reflex, and bilateral fixed pupils, dilated to 5mm left eye, and 6mm right eye. Pt remains on Levophed at 14mcg/min to maintain SBP above 90. VS are currently stable, pt is afebrile. NGT feeding is off/canceled, per MD order due to high residuals above 250ml. Lainez catheter continues to drain, clear/yellow urine.
--- NOTE | 2020-04-09 15:44 | General Progress Note ---
Assessment/Plan Problem List: (1) COPD (chronic obstructive pulmonary disease) ICD Codes: J44.9 - Chronic obstructive pulmonary disease, unspecified SNOMED: 40177655 Qualifiers: Qualified Codes: J44.9 - Chronic obstructive pulmonary disease, unspecified (2) Pneumonia ICD Codes: J18.9 - Pneumonia, unspecified organism SNOMED: 621120925 Qualifiers: Qualified Codes: J18.9 - Pneumonia, unspecified organism (3) Fever ICD Codes: R50.9 - Fever, unspecified SNOMED: 430096316 Status: stable, progressing Assessment/Plan: clinically brain based on clinical exam and EEG(no activity). one legacy eval. terminal extubation pending Subjective ROS Limited/Unobtainable: Yes Constitutional: Reports: no symptoms HEENT: Reports: no symptoms Cardiovascular: Reports: no symptoms Respiratory: Reports: no symptoms Gastrointestinal/Abdominal: Reports: no symptoms Genitourinary: Reports: no symptoms Neurologic/Psychiatric: Reports: pre-existing deficit Endocrine: Reports: no symptoms Hematologic/Lymphatic: Reports: no symptoms Allergies: Coded Allergies: PENICILLINS (Verified Allergy, Unknown, 03/11/20) All Systems: reviewed and negative except above Subjective unresponsive. no events. on the vent. full support. breathing 14. ac 14. no gag. pupils fixed and unresponsive. no response to painful stimuli. EEG with NO activity one legacy evaluating pt for organ donation. on levophed Objective Last 24 Hour Vital Signs Date Time Temp Pulse Resp B/P (MAP) Pulse Ox O2 Delivery O2 Flow Rate FiO2 04/09/20 15:30 78 18 121/76 (91) 100 04/09/20 15:24 79 18 99 Mechanical Ventilator 45 91 18 45 04/09/20 15:00 78 18 126/75 (92) 100 04/09/20 14:30 80 18 123/72 (89) 100 04/09/20 14:00 79 18 114/75 (88) 100 04/09/20 13:00 80 18 118/72 (87) 100 04/09/20 12:30 84 18 125/76 (92) 100 04/09/20 12:00 40 04/09/20 12:00 81 04/09/20 12:00 Mechanical Ventilator 04/09/20 12:00 97.9 81 18 114/78 (90) 100 04/09/20 11:43 108/75 7/6/20 11:30 83 18 115/75 (88) 100 04/09/20 11:00 83 18 107/73 (84) 100 04/09/20 10:51 84 18 99 Mechanical Ventilator 45 91 18 45 04/09/20 10:30 85 18 107/70 (82) 100 04/09/20 10:00 97.7 83 18 129/79 (96) 100 04/09/20 09:30 82 18 108/75 (86) 100 04/09/20 09:00 84 18 107/68 (81) 100 04/09/20 08:30 85 18 105/75 (85) 100 04/09/20 08:00 40 04/09/20 08:00 83 04/09/20 08:00 Mechanical Ventilator 04/09/20 08:00 85 18 106/68 (81) 100 04/09/20 07:30 96 18 103/71 (82) 100 04/09/20 07:00 87 18 106/71 (83) 100 04/09/20 06:54 87 18 99 Mechanical Ventilator 45 91 18 45 04/09/20 06:00 98/68 04/09/20 06:00 89 18 96/72 (80) 100 04/09/20 05:30 90 18 98/70 (79) 100 04/09/20 05:00 99/71 04/09/20 05:00 91 18 100/71 (81) 99 04/09/20 04:30 91 18 89/68 (75) 99 04/09/20 04:00 98.8 92 18 89/61 (70) 99 04/09/20 04:00 Mechanical Ventilator 04/09/20 04:00 40 04/09/20 04:00 89/69 04/09/20 04:00 96 04/09/20 03:30 92 18 94/63 (73) 100 04/09/20 03:00 107/68 04/09/20 03:00 90 17 107/70 (82) 100 04/09/20 02:40 91 18 99 Mechanical Ventilator 45 91 18 45 04/09/20 02:30 91 18 88/61 (70) 99 04/09/20 02:00 96/65 04/09/20 02:00 92 18 92/65 (74) 98 04/09/20 01:30 91 18 91/65 (74) 98 04/09/20 01:00 100/70 04/09/20 01:00 92 18 92/55 (67) 98 04/09/20 00:30 90 18 96/59 (71) 98 04/09/20 00:00 98.4 90 18 98/66 (77) 100 04/09/20 00:00 Mechanical Ventilator 04/09/20 00:00 96/50 04/08/20 23:10 90 18 100 Mechanical Ventilator 45 90 18 45 04/08/20 23:00 90 04/08/20 23:00 90/61 04/08/20 23:00 89 18 90/61 (71) 100 04/08/20 22:30 90 18 92/62 (72) 100 04/08/20 22:00 90 18 91/70 (77) 100 04/08/20 22:00 91/70 04/08/20 21:40 93/70 04/08/20 21:30 90 18 93/70 (78) 100 04/08/20 21:00 90 18 95/67 (76) 100 04/08/20 21:00 93/70 04/08/20 20:30 90 18 105/67 (80) 100 04/08/20 20:00 45 04/08/20 20:00 Mechanical Ventilator 04/08/20 20:00 100/69 04/08/20 20:00 98.0 90 18 100/69 (79) 100 04/08/20 19:45 92 18 112/72 (85) 100 04/08/20 19:30 93 18 97/69 (78) 100 04/08/20 19:14 94 04/08/20 19:10 95 18 100 Mechanical Ventilator 45 95 18 45 04/08/20 19:00 92/73 04/08/20 19:00 95 18 92/73 (79) 100 04/08/20 18:45 96 18 98/70 (79) 100 04/08/20 18:30 99 18 94/69 (77) 100 04/08/20 18:15 99 18 97/66 (76) 99 04/08/20 18:00 100 18 96/65 (75) 98 04/08/20 18:00 97/66 04/08/20 17:45 130/92 04/08/20 17:45 109 19 130/92 (105) 98 04/08/20 17:30 89 18 115/75 (88) 100 04/08/20 17:15 89 18 119/76 (90) 100 04/08/20 17:00 119/76 04/08/20 17:00 98.6 90 18 115/75 (88) 100 04/08/20 16:02 89 04/08/20 16:00 114/75 04/08/20 16:00 45 04/08/20 16:00 89 18 116/71 (86) 100 04/08/20 16:00 Mechanical Ventilator Intake and Output 04/08/20 04/09/20 19:00 07:00 Intake Total 2365.9375 ml 1571.25 ml Output Total 1700 ml 1650 ml Balance 665.9375 ml -78.75 ml IV Total 2215.9375 ml 1571.25 ml Other 150 ml Output Urine Total 1700 ml 1650 ml Height (Feet): 5 Height (Inches): 5.00 Weight (Pounds): 126 Objective General Appearance: WD/WN, unresponsive intubated Neck: non-tender Cardiovascular: normal rate, regular rhythm Respiratory/Chest: chest wall non-tender, lungs clear, normal breath sounds Abdomen: normal bowel sounds, non tender, soft, no organomegaly Edema: no edema noted Arm (L), no edema noted Arm (R), no edema noted Leg (L), no edema noted Leg (R), no edema noted Pedal (L), no edema noted Pedal (R), no edema noted Generalized Neurologic: unresponsive Isaak Ledesma MD Apr 09, 2020 15:44
--- NOTE | 2020-04-09 15:45 | NUR ---
CASE MANAGEMENT: REVIEW SI: INTUBATED . NONRESPONSIVE TO PAINFUL STIMULI . PUPILS DILATED AND FIXED BILATERALLY T 97.9 HR 81 RR 18 BP 107/73 SAT 99% MECH VENT FIO2 45 IS: LEVOPHED IV Q24HR WEANING DOWN CEFEPIME IV Q12HR PHENYLEPHRINE IV Q24HR NGT FEEDING ON HOLD DUE TO HIGH RESIDUAL TERMINAL EXTUBATION PLANNED ICU STATUS DCP: PATIENT IS FROM [facility]
--- NOTE | 2020-04-09 16:00 | NUR ---
NURSE NOTES: VS remain stable while Levophed is maintained at 14mcg/min. IV fluid D5 0.45NS is infusing at 100ml/hour. Pt is afebrile. Lainez catheter continues to drain clear/yellow urine on average 80-100ml/hourly. O2Sat remains at 100% while continuing same vent settings from this AM. Neuro status is unchanged, lack of gag reflex noted, bilateral pupils dilated 5mm/6mm, and fixed with no response to light.
--- NOTE | 2020-04-09 18:00 | NUR ---
NURSE NOTES: Pt was repositioned. Lainez bag was emptied. No BM during my shift. Levophed has been titrated down to 8mcg/min. VS remain stable. SBP remains above 90. Pt is afebrile.
--- NOTE | 2020-04-09 19:16 | NUR ---
RESPIRATORY NOTE: Received pt on AC 18, 500VT, 40%, PEEP +10. Pt intubated w/ ETT 7.5 @ 23cm lipline, secured by anchorfast. Pt obtunded/flat effect. B/S torsten. diminished, sxn scant amounts of thin, clear to no secretions. Vent plugged into red outlet, ambubag at bedside. Pt in no apparent distress at this time. Will continue to monitor pt.
--- NOTE | 2020-04-09 19:30 | NUR ---
HAND-OFF: Report given to Eric EARLY. Endorsed plan of care.
--- NOTE | 2020-04-09 19:30 | NUR ---
NURSE NOTES: Received report from SHARATH Costello. Pt is resting on the bed and comatose. Pt is unresponsive to any stimuli; no gag reflex, pupils is dilatate +5-6 and no reactive light, No movement of extremities. Pt has ETT and orally intubated. Vent dependent and setting with AC: 18, T: 500, P:10, FiO2 40% and SaO2 100% noted. Given suction and oral care. Pt has NGT and NPO. On shelter monitor with SR. PT has Lt. upper arm PICC line and dressing is clean and dry. On running with Levophed drip @ 8mcg/min and D5W1/2NS @ 100cc/hr. PT has Lainez cath and patent and yellowish urine urinated well. Dressing is clean and dry on wound area. on P-200 mattress for wound management. No fever. Placed fall precaution. Will continue to care plan.
[2020-04-09] MEDS: Dyna-Hex 2% Top Sol 2oz TOPIC SCH (20:00)
--- NOTE | 2020-04-09 22:00 | NUR ---
NURSE NOTES: Noted BP 119/75mmHg and HR:74's with SR. Decrease Levophed drip @ 6mcg/min. Will continue to monitor.
[2020-04-10] VITALS (25 sets, daily range): BP systolic 80–140; BP diastolic 55–85
--- NOTE | 2020-04-10 | NUR ---
NURSE NOTES: Pt is still comatose and neuro status unchanged. No fever. BP maintains stable with Levophed drip @ 6mcg/min. SaO2 1005 with current Vent setting. Provide oral and endotracheal suction. Noted whish thick secretion. Turn and reposition. Will continue to monitor any change of condition.
--- NOTE | 2020-04-10 02:00 | NUR ---
NURSE NOTES: Suction was done. Provided oral care. BP is stable with Levophed drip @ 6mcg/min. SaO2 100% with current Vent setting. Still comatose. Will continue to monitor any change of condition.
[2020-04-10] MEDS: Albuterol 90mcg Inhaler 8gm INH SCH ×6 (03:14→23:27)
--- NOTE | 2020-04-10 03:27 | NUR ---
NURSE NOTES: Called from Poli who is one Legacy and updated patient condition. Will continue to monitor any change of condition.
--- NOTE | 2020-04-10 04:00 | NUR ---
NURSE NOTES: Morning care was done. Cleaned Pt and applied lotion and cream. Changed wound dressing. No sign of significant change of condition. Patient is comatose. Patient remains unresponsive to stimulation, no gag reflexes, bilateral pupils dilated +5-6 and no response to light. Suctioned Pt. Given oral care. Will continue to monitor any change of condition.
--- NOTE | 2020-04-10 06:00 | NUR ---
NURSE NOTES: No change of neuro status. Pt is comatose. unresponsive. No gag reflex, no pupil reactive. SaO2 100% with current Vent setting. BP controlled with Levophed drip @ 6mcg/min and running with D51/2NS @ 100cc/hr. Provide oral care. Changed position. Noted good urine output via Lainez cath. Will continue to monitor any change of condition.
--- NOTE | 2020-04-10 07:16 | NUR ---
HAND-OFF: Report given to SHARATH Costello. Pt is resting on the bed and comatose. BP is controlled with Levophed drip @ 6mcg/min.
--- NOTE | 2020-04-10 07:31 | NUR ---
RD ASSESSMENT & RECOMMENDATIONS SEE CARE ACTIVITY FOR COMPLETE ASSESSMENT DAILY ESTIMATED NEEDS: Needs based on Wound, Critical care / 56kg 22-30 kcals/kg 5019-9727 total kcals 1.25-2 g protein/kg 70-112 g total protein 25-30 mL/kg 5909-7327 total fluid mLs NUTRITION DIAGNOSIS: * Swallowing difficulty R/T dysphagia as evidenced by PHARMACY TECHNICIAN INFUSION w/ rec for NPO, now on NGT feeds, s/p respiratory failure, orally intubated in ICU. * Increased kcal/prot/micronutrients needs R/T wound healing as evidenced by pt admitted w/ multiple wounds including full thickness wound @ sacrum, DTPI wound @ L Gluteal cheek, and non-Blanchable erythema @ BL heels. CURRENT TF:NPO ENTERAL NUTRITION RECOMMENDATIONS: IF TF PART OF POC- VITAL AF 1.2 goal of 50ml/hr x22 hrs to provide 1200ml, 1440kcal, 90g prot, 973ml free water -Pt currently made NPO, resume TF if part of POC and medically appropriate. -If TF is to be resumed, rec Vital AF 1.2, initiate @ 10ml/hr x 8hrs, advance as tolerated to goal w/ hemodynamic stability. -Rec trophic feeds of Vital AF 1.2 @ 10ml/hr without hemodynamic stability -Hold 1 hr before and after Synthroid med -flush per , HOB over 30 degrees ADDITIONAL RECOMMENDATIONS: * Per SNF: HT=66" BK=[id number] (03/07/20) * Wound healing: continue MVI, Vit C, and ZnSO4 TONI BID w/ TF order * Monitor POC: pending terminal extubation, TF dc'ed 04/09 . .
--- NOTE | 2020-04-10 08:00 | NUR ---
NURSE NOTES: Received change of shift report from Eric EARLY. Pt is nonresponsive to painful stimuli. Pupils dilated bilaterally and fixed, left 5mm, right 6mm. Absence of gag reflex. Per report, EEG resulted in 'no electrical brain activity'. Pt is orally intubated, ETT 7.5 at 23cm lipline with vent settings, AC18, VT 500, Peep 10, FIO2 40%, with bilateral diminished lung sounds. NSR on strategic debriefing officer, HR 70 with weak peripheral pulses. Pt is currently maintained on Levophed drip at 6mcg/min to maintain SBP above 90. Levophed is infusing via left UA double lumen PICC line. Pt has also IV fluid, D5 0.45%NS infusing at 100ml/hour. Temp 97.3F axillary. Pt has left nare NGT, currently clamped, no feedings per MD order/NPO. Abdomen is round, distended, slightly hard to touch, with hypoactive bowel sounds. Lainez catheter is present, draining clear/yellow urine. Skin alterations are noted, sacral/buttocks full thickness pressure ulcer and bilateral heels DTI, covered with optifoam dressings. Pt is on pressure release mattress. HOB at 30 degrees, bed locked, in lowest position, three side rails up, alarm on. Will continue with plan of care.
--- NOTE | 2020-04-10 08:38 | Critical Care Progress Note ---
Assessment/Plan Assessment/Plan IMPRESSION: 1. COPD 2. Hypercapnia and hypoxemia. 3. Pneumonia,long term 4. Hypothyroidism. 5. History of allergies. 6. Severe protein-calorie malnutrition. 7. Mild leukocytosis. 8. acute respiratory failure/ failed extubation 9. pulmonary congestion 10. hypernatremia 11. brain care noted brain ; awaiting withdrawal of care respiratory care as is hemodynamics noted reviewed changes; monitor secretions- discussed care supportive care as is off load aspiration precautions position change and off load oxygen therapy as is terminal extubation pending medications/laboratory data/nursing notes/ICU care reviewed in detail note reviewed and edited care discussed with RN and RT ICU time spent >40 minutes Critical Care - Subjective ROS Limited/Unobtainable: Yes Condition: critical EKG Rhythm: Sinus Rhythm I&O: Intake and Output 04/09/20 04/10/20 19:00 07:00 Intake Total 1772.50 ml 1374.25 ml Output Total 1130 ml 1475 ml Balance 642.50 ml -100.75 ml IV Total 1772.50 ml 1374.25 ml Output Urine Total 1130 ml 1475 ml Critical Care - Objective ET-Tube: 7.5 ET Position: 23 Last 24 Hour Vital Signs Date Time Temp Pulse Resp B/P (MAP) Pulse Ox O2 Delivery O2 Flow Rate FiO2 04/10/20 07:14 69 18 100 Mechanical Ventilator 40 69 18 40 04/10/20 07:00 102/66 04/10/20 07:00 69 18 102/66 (78) 100 04/10/20 06:00 70 18 97/70 (79) 100 04/10/20 06:00 97/70 04/10/20 05:00 101/63 04/10/20 05:00 71 18 101/63 (76) 100 04/10/20 04:00 72 04/10/20 04:00 40 04/10/20 04:00 Mechanical Ventilator 04/10/20 04:00 102/62 04/10/20 04:00 97.5 73 18 102/62 (75) 100 04/10/20 03:14 78 18 100 Mechanical Ventilator 40 77 18 40 04/10/20 03:00 80 18 106/68 (81) 100 04/10/20 03:00 106/68 04/10/20 02:00 107/67 04/10/20 02:00 69 18 107/67 (80) 100 04/10/20 01:00 70 18 105/65 (78) 100 04/10/20 01:00 105/65 04/10/20 00:00 97.8 71 18 116/79 (91) 100 04/10/20 00:00 40 04/10/20 00:00 116/79 04/10/20 00:00 72 04/10/20 00:00 Mechanical Ventilator 04/09/20 23:16 73 18 100 Mechanical Ventilator 40 73 18 40 04/09/20 23:00 73 18 104/66 (79) 100 04/09/20 23:00 104/66 04/09/20 22:00 119/75 04/09/20 22:00 74 18 119/75 (90) 100 04/09/20 21:00 117/70 04/09/20 21:00 75 19 117/70 (86) 100 04/09/20 20:00 Mechanical Ventilator 04/09/20 20:00 97.9 77 18 109/67 (81) 100 04/09/20 20:00 109/67 04/09/20 20:00 40 04/09/20 20:00 77 04/09/20 19:12 80 18 100 Mechanical Ventilator 40 80 18 40 04/09/20 19:00 81 18 97/66 (76) 100 04/09/20 19:00 110/71 04/09/20 18:00 122/79 04/09/20 18:00 80 18 117/80 (92) 100 04/09/20 17:00 78 18 132/74 (93) 100 04/09/20 17:00 126/77 04/09/20 16:15 78 18 124/70 (88) 100 04/09/20 16:00 Mechanical Ventilator 04/09/20 16:00 97.9 78 18 119/79 (92) 100 04/09/20 16:00 124/70 04/09/20 16:00 40 04/09/20 16:00 78 04/09/20 15:30 78 18 121/76 (91) 100 04/09/20 15:24 79 18 99 Mechanical Ventilator 45 91 18 45 04/09/20 15:00 78 18 126/75 (92) 100 04/09/20 15:00 126/75 04/09/20 14:30 80 18 123/72 (89) 100 04/09/20 14:00 79 18 114/75 (88) 100 04/09/20 14:00 111/78 04/09/20 13:00 118/72 04/09/20 13:00 80 18 118/72 (87) 100 04/09/20 12:30 84 18 125/76 (92) 100 04/09/20 12:00 40 04/09/20 12:00 81 04/09/20 12:00 132/78 04/09/20 12:00 Mechanical Ventilator 04/09/20 12:00 97.9 81 18 114/78 (90) 100 04/09/20 11:43 108/75 04/09/20 11:30 83 18 115/75 (88) 100 04/09/20 11:00 102/73 04/09/20 11:00 83 18 107/73 (84) 100 04/09/20 10:51 84 18 99 Mechanical Ventilator 45 91 18 45 04/09/20 10:30 85 18 107/70 (82) 100 04/09/20 10:00 97.7 83 18 129/79 (96) 100 04/09/20 10:00 129/69 04/09/20 09:30 82 18 108/75 (86) 100 04/09/20 09:00 84 18 107/68 (81) 100 04/09/20 09:00 109/68 Objective: GENERAL: An ill-appearing female. NAD on Vent NECK: Supple. No adenopathy. LUNGS: Coarse breath sounds. Moderate air entry. ETT in place; no rhonchi or wheeze CARDIAC: S1, S2. Regular rate and rhythm without murmur. ABDOMEN: Soft, nontender, nondistended. feeding tube EXTREMITIES: No cyanosis, clubbing, or edema. obtunded on the vent reviewed and edited Javier Blake MD Apr 10, 2020 08:38
[2020-04-10] MEDS: D5 1/2NS 1,000 ML IV SCH ×2 (08:43→16:26)
[2020-04-10] MEDS: Lactulose 20gm/30ml UDC NG SCH ×3 (08:43→18:54)
[2020-04-10] MEDS: Midodrine 10mg tab NG SCH ×3 (08:43→18:54)
[2020-04-10] MEDS: Zinc Sulfate 220mg NG SCH (08:43)
[2020-04-10] MEDS: Multivitamins W/Minerals 15 ML UDC NG SCH (08:43)
[2020-04-10] MEDS: Ascorbic Acid 500mg tab NG SCH (08:43)
[2020-04-10] MEDS: Pantoprazole Inj IVP SCH (08:43)
[2020-04-10] MEDS: Heparin 5000 units/ml inj SUBQ SCH ×2 (08:44→22:07)
--- NOTE | 2020-04-10 09:26 | NUR ---
CASE MANAGEMENT:REVIEW SI: INTUBATED . NONRESPONSIVE TO PAINFUL STIMULI . PUPILS FIXED AND DILATED 97.5 73 18 102/62 SAT 100% ON VENT SUPPORT W/40% FIO2 IS: IVF@100/HR LEVOPHED GTT IV CEFEPIME Q12 IV PROTONIX QD : ICU STATUS PLAN: [facility] IS ON STANDBY
[2020-04-10 09:28] LABS: BASOPHILS % (AUTO) 0.5 % (0.0-2.0); HEMATOCRIT 28.7 % (37.0-47.0); LYMPHOCYTES % (AUTO) 12.2 % (20.0-45.0); MEAN CORPUSCULAR VOLUME 98 FL (80-99); NEUTROPHILS % (AUTO) 83.4 % (45.0-75.0); PLATELET COUNT 148 K/UL (150-450); RED BLOOD COUNT 2.92 M/UL (4.20-5.40); RED CELL DISTRIBUTION WIDTH 14.4 % (11.6-14.8); WHITE BLOOD COUNT 11.3 K/UL (4.8-10.8)
[2020-04-10 09:34] LABS: ANION GAP 10 mmol/L (5-15); BLOOD UREA NITROGEN 30 mg/dL (7-18); CARBON DIOXIDE 22 MMOL/L (21-32); CHLORIDE 109 MMOL/L (98-107); CREATININE 1.4 MG/DL (0.55-1.30); SODIUM 141 MMOL/L (136-145)
[2020-04-10 09:37] LABS: INR 1.4 (0.9-1.1)
--- NOTE | 2020-04-10 10:00 | NUR ---
NURSE NOTES: AM meds were administered. VS remain stable while Levophed is infusing at 6mcg/min to maintain SBP above 90. Trim Master Operator from [facility]/organ harvest is at the nurse's status to receive current status-update regarding pt's condition and physician dictation/documentation to fully and officially confirm pt's lack of brain activity post EEG results. Per [facility] human resources hr representative, awaiting for 2nd physician notes. Charge nurse spoke with Dr. Ledesma, per charge nurse MD will complete his documentation at the end of today.
--- NOTE | 2020-04-10 10:27 | Surgery Progress Note ---
Surgery Progress Note Subjective Additional Comments no acute events Objective Last 24 Hour Vital Signs Date Time Temp Pulse Resp B/P (MAP) Pulse Ox O2 Delivery O2 Flow Rate FiO2 04/10/20 10:00 67 18 106/66 (79) 100 04/10/20 09:00 67 18 80/55 (63) 100 04/10/20 08:00 67 04/10/20 08:00 69 18 95/62 (73) 100 04/10/20 07:14 69 18 100 Mechanical Ventilator 40 69 18 40 04/10/20 07:00 102/66 04/10/20 07:00 69 18 102/66 (78) 100 04/10/20 06:00 70 18 97/70 (79) 100 04/10/20 06:00 97/70 04/10/20 05:00 101/63 04/10/20 05:00 71 18 101/63 (76) 100 04/10/20 04:00 72 04/10/20 04:00 40 04/10/20 04:00 Mechanical Ventilator 04/10/20 04:00 102/62 04/10/20 04:00 97.5 73 18 102/62 (75) 100 04/10/20 03:14 78 18 100 Mechanical Ventilator 40 77 18 40 04/10/20 03:00 80 18 106/68 (81) 100 04/10/20 03:00 106/68 04/10/20 02:00 107/67 04/10/20 02:00 69 18 107/67 (80) 100 04/10/20 01:00 70 18 105/65 (78) 100 04/10/20 01:00 105/65 04/10/20 00:00 97.8 71 18 116/79 (91) 100 04/10/20 00:00 40 04/10/20 00:00 116/79 04/10/20 00:00 72 04/10/20 00:00 Mechanical Ventilator 04/09/20 23:16 73 18 100 Mechanical Ventilator 40 73 18 40 04/09/20 23:00 73 18 104/66 (79) 100 04/09/20 23:00 104/66 04/09/20 22:00 119/75 04/09/20 22:00 74 18 119/75 (90) 100 04/09/20 21:00 117/70 04/09/20 21:00 75 19 117/70 (86) 100 04/09/20 20:00 Mechanical Ventilator 04/09/20 20:00 97.9 77 18 109/67 (81) 100 04/09/20 20:00 109/67 04/09/20 20:00 40 04/09/20 20:00 77 04/09/20 19:12 80 18 100 Mechanical Ventilator 40 80 18 40 04/09/20 19:00 81 18 97/66 (76) 100 04/09/20 19:00 110/71 04/09/20 18:00 122/79 04/09/20 18:00 80 18 117/80 (92) 100 04/09/20 17:00 78 18 132/74 (93) 100 04/09/20 17:00 126/77 04/09/20 16:15 78 18 124/70 (88) 100 04/09/20 16:00 Mechanical Ventilator 04/09/20 16:00 97.9 78 18 119/79 (92) 100 04/09/20 16:00 124/70 04/09/20 16:00 40 04/09/20 16:00 78 04/09/20 15:30 78 18 121/76 (91) 100 04/09/20 15:24 79 18 99 Mechanical Ventilator 45 91 18 45 04/09/20 15:00 78 18 126/75 (92) 100 04/09/20 15:00 126/75 04/09/20 14:30 80 18 123/72 (89) 100 04/09/20 14:00 79 18 114/75 (88) 100 04/09/20 14:00 111/78 04/09/20 13:00 118/72 04/09/20 13:00 80 18 118/72 (87) 100 04/09/20 12:30 84 18 125/76 (92) 100 04/09/20 12:00 40 04/09/20 12:00 81 04/09/20 12:00 132/78 04/09/20 12:00 Mechanical Ventilator 04/09/20 12:00 97.9 81 18 114/78 (90) 100 04/09/20 11:43 108/75 04/09/20 11:30 83 18 115/75 (88) 100 04/09/20 11:00 102/73 04/09/20 11:00 83 18 107/73 (84) 100 04/09/20 10:51 84 18 99 Mechanical Ventilator 45 91 18 45 04/09/20 10:30 85 18 107/70 (82) 100 I&O Intake and Output 04/09/20 04/10/20 19:00 07:00 Intake Total 1772.50 ml 1374.25 ml Output Total 1130 ml 1475 ml Balance 642.50 ml -100.75 ml IV Total 1772.50 ml 1374.25 ml Output Urine Total 1130 ml 1475 ml Dressing: other Wound: other Cardiovascular: RSR Respiratory: decreased breath sounds Abdomen: soft, decreased bowel sounds Extremities: no cyanosis Laboratory Tests Test 04/10/20 09:00 White Blood Count 11.3 K/UL (4.8-10.8) H Red Blood Count 2.92 M/UL (4.20-5.40) L Hemoglobin 9.0 G/DL (12.0-16.0) L Hematocrit 28.7 % (37.0-47.0) L Mean Corpuscular Volume 98 FL (80-99) Mean Corpuscular Hemoglobin 30.7 PG (27.0-31.0) Mean Corpuscular Hemoglobin Concent 31.3 G/DL (32.0-36.0) L Red Cell Distribution Width 14.4 % (11.6-14.8) Platelet Count 148 K/UL (150-450) L Mean Platelet Volume 10.4 FL (6.5-10.1) H Neutrophils (%) (Auto) 83.4 % (45.0-75.0) H Lymphocytes (%) (Auto) 12.2 % (20.0-45.0) L Monocytes (%) (Auto) 3.0 % (1.0-10.0) Eosinophils (%) (Auto) 1.0 % (0.0-3.0) Basophils (%) (Auto) 0.5 % (0.0-2.0) Prothrombin Time 15.3 SEC (9.30-11.50) H Prothromb Time International Ratio 1.4 (0.9-1.1) H Activated Partial Thromboplast Time 54 SEC (23-33) H Sodium Level 141 MMOL/L (136-145) Potassium Level 4.0 MMOL/L (3.5-5.1) Chloride Level 109 MMOL/L (98-107) H Carbon Dioxide Level 22 MMOL/L (21-32) Anion Gap 10 mmol/L (5-15) Blood Urea Nitrogen 30 mg/dL (7-18) H Creatinine 1.4 MG/DL (0.55-1.30) H Estimat Glomerular Filtration Rate 38.2 mL/min (>60) Glucose Level 102 MG/DL (74-106) Calcium Level 9.0 MG/DL (8.5-10.1) Plan Problems: (1) Malnutrition Assessment & Plan: not eating enough TF started adv as tolerated bowel regimen worsening prognosis guarded DDAILY ESTIMATED NEEDS: Needs based on Wound, pulmonary / 56kg 25-35 kcals/kg 2176-5280 total kcals 1.25-1.8 g protein/kg 70-100 g total protein 25-30 mL/kg 3448-2009 total fluid mLs NUTRITION DIAGNOSIS: * Swallowing difficulty R/T dysphagia as evidenced by CONCRETE MIXER OPERATOR w/ rec for NPO, now on NGT feeds. * Increased kcal/prot/micronutrients needs R/T wound healing as evidenced by pt admitted w/ multiple wounds including full thickness wound @ sacrum, TPI wound @ L Gluteal cheek, and non-Blanchable erythema @ BL heels. CURRENT TF:Jevity 1.2 @30ml/hr ENTERAL NUTRITION RECOMMENDATIONS: JEVITY 1.2 goal of 55ml/hr x24 hrs to provide 1320ml, 1584 kcal, 73g pro, 1065ml free H2O - rec to INCREASE current TF as tolerated to goal of 55ml/hr to better meet est needs. - flush per , CHRISTINA over 30 degrees ADDITIONAL RECOMMENDATIONS: * Per SNF: HT=66" PJ=[id number] (03/07/20) * Wound healing: continue MVI, Vit C, and ZnSO4 * VIA NGT-> add TONI BID for wound care TF recs as above * Monitor lytes, replete as needed THIS 60 Y.O.M. WAS ADMITTED WITH ACUTE ISSUES - FEVER, HYPOXIC WITH LOW 02 SATS ON NON-REBREATHER, RESP RATE 18 BPM INITIALLY PER MEDICAL RECORD. PER RN, THE PATIENT HAD A RAPID RESPOSE THIS MORNING (DESAT TO 90S AND RAPID RESP RATE). H/O COPD, CARDIAC DZ, HYPOTHYROIDISM, HTN, ALLERGIC RHINITIS, SCHIZOPHRENIA (ON OLANZAPINE AT SNF), BASELINE NONVERBAL. PER POLST FULL TX BUT NO INFORMATION REGARDING TUBE FEEDING PREFERENCES. AT SNF ON A REGULAR DIET TEXTURE AND THIN LIQUIDS WITH PROSTAT SF DRINK WITH MEALS. NOW ON A REGULAR TEXTURE DIET AND THIN LIQUIDS BUT DID NOT TAKE ANY PO. PER RNLAURIE, THE PT UNABLE TO TAKE LARGE PILLS BUT APPEARED TO TOLERATE CRUSHED MEDS WITH APPLESAUCE W/O OVERT ASPIRATION. PATIENT SEEN WITH RTFUNMI. PER RT RESP RATE 22 BPM AND NOT ABLE TO ongoing unintelligible confabulations. Patient did request a sandwich, however, not appropriate for regular texture at this time. VITALS ON 2 L NASAL CANNULA: HR: 73; RR: 20; SP02: 95% Patient's oral hygiene is improving, ongoing poor speech intelligibility which appears to be more due to poor articulation precision/oral motor coordination versus 2/2 dry mouth. CXR on 03/14/20: Findings: Interim considerable improvement of previously demonstrated left lower lobe infiltrate. There is a residual disease in the retrocardiac region as well as generalized reticular interstitial opacities throughout the left mid and lower lung. There is questionably a 3 cm spiculated opacity projected over the apex. Minimal right mid and lower lung reticular opacities are also demonstrated. There is some right midlung atelectasis versus thickening of the minor fissure. The heart size is normal. The pleural spaces are clear Impression: Considerable improvement the persistence of previously demonstrated left mid and lower lung infiltrates, since prior study of 03/11/2020. CONCRETE MIXER OPERATOR plans to continue to f/u and monitor Patients readiness for PO trials for diet texture upgrade. RN aware of recommendations, plan, and aspiration precautions sign posted above Patients HOB. RECOMMENDATIONS: 1. Continue Moist Puree with [place] Thick Liquids Diet via 1 to 1 careful handfeeding while implementing posted aspiration precautions - RD recommendations appreciated for diet texture/type 2. Patient requires oral hygiene BID + lip moisturizer. (2) Decubitus skin ulcer Assessment & Plan: Pt presented on admission with multiple pressure injuries. Full thickness Pressure injury Sacrococcygeal area. (L)4cm x (W)2.5cm. Base of wound is fatou with scattered slough ,which was easily removed with gentle friction. Wound is now fatou with 25% soft necrosis at distal base of wound. Small amt sanguineous exudate noted.No odor noted. Periwound erythematous and denuded. Two additional Pressure Injuries noted to R gluteal cheek.(Proximal) Base of wound is purple and indurated(L)3cm x (W)1.5cm. Surrounding erythematous and denuded skin (Distal) R gluteus(L)1.4cm x (W)0.6cm. Base of wound is purple, indurated with surrounding erythematous and denuded skin. DTPI L Gluteal cheek (L)1.5cm x (W)1.3cm. Base of wound is indurated, purple with surrounding non-blanching erythema. Additional scattered areas that are maroon in colour noted to L gluteal cheek. Lateral L Heel boggy with non-blanching erythema with delineated margins. (L) 4cm x (W)4.5cm. Lateral R Heel Boggy with non-Blanchable erythema with delineated margins(L) 2.5cm x (W)2.5cm. Tx.Plan: Cleanse Sacrococcygeal area with saline. Apply TheraHoney , Apply Moisture Barrier Paste to Sacrum, R and L Buttocks. Cover entire Area with Optifoam drsgs. Change every 3 days and prn. Apply Moisture Barrier Paste to R and L Buttocks . Cover with Optifoam drsgs. Changee very 3 days and prn. Apply Cavilon Skin Barrier to R and L Trochanteric areas. Cover with Optifoam drsg. Change every 7 days and prn. Apply Cavilon Skin Barrier to R and L Heels. Cover each heel with Optifoam drsg. Change every 7 days and prn. Reposition at least every 2hours or as tolerated. Off-load heels with Pillow. APM/ERIK Mattress. (3) Pneumonia Assessment & Plan: Lungs: There is mild left lower lobe infiltrate consistent with pneumonia. Pleural space: Unremarkable. No pneumothorax. Heart: The heart size is at the upper limits of normal. Mediastinum: Unremarkable. Bones/joints: Unremarkable. IMPRESSION: There is mild left lower lobe infiltrate consistent with pneumonia. worsening on bipap now will monitor closely intubated now 03/21 wean vent Continue weaning. Will hopefully be extubated potentially. Gases noted. (4) COPD (chronic obstructive pulmonary disease) Assessment & Plan: On vent support weaning Potential extubation soon not able to extubate as not safe with current status possible withdraw care as no function possible brain (5) Fever (6) Cardiopulmonary arrest Assessment & Plan: prognosis poor no reasonable functional status [facility] eval terminal extubation (7) Respiratory failure Eddie Perez Apr 10, 2020 10:27
--- NOTE | 2020-04-10 10:49 | Infectious Diseases Prog Note ---
Assessment/Plan Assessment/Plan antibiotics : cefepime A 1. klebsiella pneumonia COVID 19 test negative x 2 2. respiratory failure 3. COPD 4. leucocytosis improving 5. hypothyroidism 6. schizophrenia 7. shock P 1. continue iv cefepime 2. will follow up cultures 3. terminal extubation planned Subjective ROS Limited/Unobtainable: Yes Allergies: Coded Allergies: PENICILLINS (Verified Allergy, Unknown, 03/11/20) Objective Last 24 Hour Vital Signs Date Time Temp Pulse Resp B/P (MAP) Pulse Ox O2 Delivery O2 Flow Rate FiO2 04/10/20 10:00 67 18 106/66 (79) 100 04/10/20 09:00 67 18 80/55 (63) 100 04/10/20 08:00 67 04/10/20 08:00 69 18 95/62 (73) 100 04/10/20 07:14 69 18 100 Mechanical Ventilator 40 69 18 40 04/10/20 07:00 102/66 04/10/20 07:00 69 18 102/66 (78) 100 04/10/20 06:00 70 18 97/70 (79) 100 04/10/20 06:00 97/70 04/10/20 05:00 101/63 04/10/20 05:00 71 18 101/63 (76) 100 04/10/20 04:00 72 04/10/20 04:00 40 04/10/20 04:00 Mechanical Ventilator 04/10/20 04:00 102/62 04/10/20 04:00 97.5 73 18 102/62 (75) 100 04/10/20 03:14 78 18 100 Mechanical Ventilator 40 77 18 40 04/10/20 03:00 80 18 106/68 (81) 100 04/10/20 03:00 106/68 04/10/20 02:00 107/67 04/10/20 02:00 69 18 107/67 (80) 100 04/10/20 01:00 70 18 105/65 (78) 100 04/10/20 01:00 105/65 04/10/20 00:00 97.8 71 18 116/79 (91) 100 04/10/20 00:00 40 04/10/20 00:00 116/79 04/10/20 00:00 72 04/10/20 00:00 Mechanical Ventilator 04/09/20 23:16 73 18 100 Mechanical Ventilator 40 73 18 40 04/09/20 23:00 73 18 104/66 (79) 100 04/09/20 23:00 104/66 04/09/20 22:00 119/75 04/09/20 22:00 74 18 119/75 (90) 100 04/09/20 21:00 117/70 04/09/20 21:00 75 19 117/70 (86) 100 04/09/20 20:00 Mechanical Ventilator 04/09/20 20:00 97.9 77 18 109/67 (81) 100 04/09/20 20:00 109/67 04/09/20 20:00 40 04/09/20 20:00 77 04/09/20 19:12 80 18 100 Mechanical Ventilator 40 80 18 40 04/09/20 19:00 81 18 97/66 (76) 100 04/09/20 19:00 110/71 04/09/20 18:00 122/79 04/09/20 18:00 80 18 117/80 (92) 100 04/09/20 17:00 78 18 132/74 (93) 100 04/09/20 17:00 126/77 04/09/20 16:15 78 18 124/70 (88) 100 04/09/20 16:00 Mechanical Ventilator 04/09/20 16:00 97.9 78 18 119/79 (92) 100 04/09/20 16:00 124/70 04/09/20 16:00 40 04/09/20 16:00 78 04/09/20 15:30 78 18 121/76 (91) 100 04/09/20 15:24 79 18 99 Mechanical Ventilator 45 91 18 45 04/09/20 15:00 78 18 126/75 (92) 100 04/09/20 15:00 126/75 04/09/20 14:30 80 18 123/72 (89) 100 04/09/20 14:00 79 18 114/75 (88) 100 04/09/20 14:00 111/78 04/09/20 13:00 118/72 04/09/20 13:00 80 18 118/72 (87) 100 04/09/20 12:30 84 18 125/76 (92) 100 04/09/20 12:00 40 7/6/20 12:00 81 04/09/20 12:00 132/78 04/09/20 12:00 Mechanical Ventilator 04/09/20 12:00 97.9 81 18 114/78 (90) 100 04/09/20 11:43 108/75 04/09/20 11:30 83 18 115/75 (88) 100 04/09/20 11:00 102/73 04/09/20 11:00 83 18 107/73 (84) 100 04/09/20 10:51 84 18 99 Mechanical Ventilator 45 91 18 45 Height (Feet): 5 Height (Inches): 5.00 Weight (Pounds): 128 HEENT: other - intubated Respiratory/Chest: lungs clear Cardiovascular: normal rate, regular rhythm, no gallop/murmur Abdomen: soft, non tender Extremities: no edema, other - left arm PICC Laboratory Tests Test 04/10/20 09:00 White Blood Count 11.3 K/UL (4.8-10.8) H Red Blood Count 2.92 M/UL (4.20-5.40) L Hemoglobin 9.0 G/DL (12.0-16.0) L Hematocrit 28.7 % (37.0-47.0) L Mean Corpuscular Volume 98 FL (80-99) Mean Corpuscular Hemoglobin 30.7 PG (27.0-31.0) Mean Corpuscular Hemoglobin Concent 31.3 G/DL (32.0-36.0) L Red Cell Distribution Width 14.4 % (11.6-14.8) Platelet Count 148 K/UL (150-450) L Mean Platelet Volume 10.4 FL (6.5-10.1) H Neutrophils (%) (Auto) 83.4 % (45.0-75.0) H Lymphocytes (%) (Auto) 12.2 % (20.0-45.0) L Monocytes (%) (Auto) 3.0 % (1.0-10.0) Eosinophils (%) (Auto) 1.0 % (0.0-3.0) Basophils (%) (Auto) 0.5 % (0.0-2.0) Prothrombin Time 15.3 SEC (9.30-11.50) H Prothromb Time International Ratio 1.4 (0.9-1.1) H Activated Partial Thromboplast Time 54 SEC (23-33) H Sodium Level 141 MMOL/L (136-145) Potassium Level 4.0 MMOL/L (3.5-5.1) Chloride Level 109 MMOL/L (98-107) H Carbon Dioxide Level 22 MMOL/L (21-32) Anion Gap 10 mmol/L (5-15) Blood Urea Nitrogen 30 mg/dL (7-18) H Creatinine 1.4 MG/DL (0.55-1.30) H Estimat Glomerular Filtration Rate 38.2 mL/min (>60) Glucose Level 102 MG/DL (74-106) Calcium Level 9.0 MG/DL (8.5-10.1) Current Medications Medications (Trade) Dose Ordered Sig/Ranjeet Route PRN Reason Start Time Stop Time Status Last Admin Dose Admin Acetaminophen (Tylenol) 650 mg Q4H PRN NG Mild Pain (1-3)/Fever > 100.5 03/22/20 15:30 04/10/20 19:29 Albuterol Sulfate (Proventil MDI) 2 puff Q4HRT INH 03/18/20 15:00 06/13/20 02:59 04/10/20 07:19 Ascorbic Acid (Vitamin C) 500 mg DAILY NG 03/23/20 09:00 04/11/20 08:59 04/10/20 08:43 Atropine Sulfate (Atropine) 1 mg Q1H PRN IVP HR <40BPM 03/18/20 13:30 04/17/20 13:29 03/31/20 14:58 Cefepime HCl 2 gm/ Dextrose 55 ml @ 110 mls/hr Q12H IVPB 04/02/20 12:00 04/13/20 11:59 04/09/20 23:59 Chlorhexidine Gluconate (Mary-Hex 2%) 1 applic DAILY@2000 TOPIC 03/21/20 20:00 06/19/20 19:59 04/09/20 20:00 Clonidine HCl (Catapres Tab) 0.1 mg Q4H PRN NG For High Blood Pressure 03/31/20 16:45 06/29/20 16:44 03/31/20 16:45 Dextrose/Sodium Chloride 1,000 ml @ 100 mls/hr Q10H IV 04/09/20 11:00 05/09/20 10:59 04/10/20 08:43 Heparin Sodium (Porcine) (Heparin 5000 units/ml) 5,000 units EVERY 12 HOURS SUBQ 03/18/20 21:00 04/25/20 20:59 04/10/20 08:44 Lactulose (Cephulac) 30 gm THREE TIMES A DAY NG 03/22/20 18:00 04/18/20 09:14 04/10/20 08:43 Levothyroxine Sodium (Synthroid) 150 mcg DAILY@0630 ORAL 03/31/20 06:30 04/30/20 06:29 04/10/20 06:10 Loratadine (Claritin 10mg) 10 mg DAILY ORAL 03/23/20 09:00 04/11/20 08:59 04/10/20 08:43 Magnesium Hydroxide (Mom) 30 ml HSPRN PRN NG Constipation 03/22/20 15:30 04/17/20 13:59 04/03/20 17:15 Midodrine (Pro-Amatine) 10 mg THREE TIMES A DAY NG 03/24/20 13:00 06/21/20 08:59 04/10/20 08:43 Multivitamins (Multivitamins W/ Minerals 15ml Liquid) 15 ml DAILY NG 03/23/20 09:00 04/11/20 08:59 04/10/20 08:43 Norepinephrine Bitartrate 16 mg/ Dextrose 500 ml @ 0 mls/hr Q24H IV 04/07/20 15:00 05/07/20 14:59 04/09/20 11:43 Pantoprazole (Protonix) 40 mg DAILY IVP 03/23/20 09:00 04/22/20 08:59 04/10/20 08:43 Phenylephrine HCl 50 mg/Dextrose 250 ml @ 0 mls/hr Q24H IV 04/01/20 12:00 05/01/20 11:59 04/03/20 23:36 Zinc Sulfate (Zinc Sulfate) 220 mg DAILY NG 03/23/20 09:00 06/10/20 08:59 04/10/20 08:43 Eh Bailey MD Apr 10, 2020 10:49
[2020-04-10] MEDS: Phenylephrine 50 MG in D5W 245 ML IV SCH (11:28)
--- NOTE | 2020-04-10 12:00 | NUR ---
NURSE NOTES: VS remain stable while pt is maintained on Levophed at 6mcg/min to maintain SBP above 90. Pt remains afebrile. Pt was repositioned. Oral care was done. Neurological status remains unchanged: Pt remains with zero gag reflex, and no response to any painful stimuli. Bilateral pupil are fixed and dilated with no response to penlight. Bilateral upper/lower extremities have zero strength. Pt remains laying with HOB at 30 degrees and absence of any body movement with the exception of chest rise/fall due to artificial respiration stimulated by AC vent settings via oral intubation. aware. Sugar Cane Planter Machine Operator from [facility] remains at the nurse station, aware of pt's condition, and still awaiting for documentation from 2nd physician regarding brain- status prior to moving forward with organ-harvesting plan.
--- NOTE | 2020-04-10 12:19 | NUR ---
*-* INSURANCE *-* UPDATED CLINICALS AND REVIEWS HAVE BEEN FAXED TO; [facility] F: [phone] REF #[id number]
[2020-04-10] MEDS: Cefepime HCl 2 GM in D5W 55 ML IVPB SCH (13:15)
--- NOTE | 2020-04-10 14:15 | NUR ---
NURSE NOTES: Pt remains on Levophed drip currently at 6mcg/min to maintain SBP above 90. VS remain stable. Pt was repositioned with bilateral extremities elevated on pillows, off/heels.
[2020-04-10] MEDS ORDERED: Tubing IV Secondary IV ONE (15:10)
[2020-04-10] MEDS ORDERED: NS 275ml ONE (15:10)
[2020-04-10] MEDS ORDERED: D5 1/2NS 1000ml IV ONE (15:10)
[2020-04-10] MEDS: Norepinephrine Bitartrate 16 MG in D5W 500ml 484 ML IV SCH (16:26)
--- NOTE | 2020-04-10 16:30 | NUR ---
NURSE NOTES: Pt was cleaned, gown/bed linens were changed, dressing changed. Pt was repositioned, bilateral extremities elevated on pillows. VS remain stable while pt is maintained on Levophed drip, titrated down to 4mcg/min to maintain SBP above 90. Pt remains afebrile, Temp 97.3F axillary. Neurological status remains unchanged, currently with absence of gag reflex, dilated/fixed bilateral pupils, and zero response to any painful stimulation. 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 Awaiting for full/detailed dictation from 2nd physician to confirm pt's brain/ status post eval and EEG results confirming no electrical brain activity. Per [facility] awaiting for 2-physician notes to confirm brain/ status prior to harvesting organs. Charge nurse aware, Dr. Mcpherson aware, CNO aware.
--- NOTE | 2020-04-10 16:59 | General Progress Note ---
Assessment/Plan Problem List: (1) COPD (chronic obstructive pulmonary disease) ICD Codes: J44.9 - Chronic obstructive pulmonary disease, unspecified SNOMED: 06733372 Qualifiers: Qualified Codes: J44.9 - Chronic obstructive pulmonary disease, unspecified (2) Pneumonia ICD Codes: J18.9 - Pneumonia, unspecified organism SNOMED: 223159584 Qualifiers: Qualified Codes: J18.9 - Pneumonia, unspecified organism (3) Fever ICD Codes: R50.9 - Fever, unspecified SNOMED: 863438430 Status: stable, progressing Assessment/Plan: clinically brain based on clinical exam and EEG(no activity). [facility] eval. terminal extubation pending Subjective ROS Limited/Unobtainable: Yes Constitutional: Reports: no symptoms HEENT: Reports: no symptoms Cardiovascular: Reports: no symptoms Respiratory: Reports: no symptoms Gastrointestinal/Abdominal: Reports: no symptoms Genitourinary: Reports: no symptoms Neurologic/Psychiatric: Reports: no symptoms Endocrine: Reports: no symptoms Hematologic/Lymphatic: Reports: no symptoms Allergies: Coded Allergies: PENICILLINS (Verified Allergy, Unknown, 03/11/20) All Systems: reviewed and negative except above Subjective unresponsive. no events. on the vent. full support. breathing 14. ac 14. no gag. pupils fixed and unresponsive. no response to painful stimuli. EEG with NO activity [facility] evaluating pt for organ donation. on levophed Objective Last 24 Hour Vital Signs Date Time Temp Pulse Resp B/P (MAP) Pulse Ox O2 Delivery O2 Flow Rate FiO2 04/10/20 16:26 133/84 04/10/20 16:00 40 04/10/20 16:00 63 18 133/84 (100) 100 04/10/20 16:00 115/80 04/10/20 16:00 Mechanical Ventilator 04/10/20 16:00 63 04/10/20 15:08 63 18 100 Mechanical Ventilator 40 63 18 40 04/10/20 15:00 130/70 04/10/20 15:00 63 18 131/82 (98) 100 04/10/20 14:00 120/70 04/10/20 14:00 97.3 63 18 140/85 (103) 100 04/10/20 13:00 128/82 04/10/20 13:00 63 18 128/82 (97) 100 04/10/20 12:00 64 7/7/20 12:00 40 04/10/20 12:00 125/83 04/10/20 12:00 Mechanical Ventilator 04/10/20 12:00 64 18 125/83 (97) 100 04/10/20 11:00 65 18 125/82 (96) 100 04/10/20 11:00 124/83 04/10/20 10:53 66 18 100 Mechanical Ventilator 40 66 18 40 04/10/20 10:00 67 18 106/66 (79) 100 04/10/20 10:00 105/66 04/10/20 09:00 67 18 80/55 (63) 100 04/10/20 09:00 80/55 04/10/20 08:00 67 04/10/20 08:00 40 04/10/20 08:00 69 18 95/62 (73) 100 04/10/20 08:00 Mechanical Ventilator 04/10/20 08:00 95/62 04/10/20 07:14 69 18 100 Mechanical Ventilator 40 69 18 40 04/10/20 07:00 102/66 04/10/20 07:00 69 18 102/66 (78) 100 04/10/20 06:00 70 18 97/70 (79) 100 04/10/20 06:00 97/70 04/10/20 05:00 101/63 04/10/20 05:00 71 18 101/63 (76) 100 04/10/20 04:00 72 04/10/20 04:00 40 04/10/20 04:00 Mechanical Ventilator 04/10/20 04:00 102/62 04/10/20 04:00 97.5 73 18 102/62 (75) 100 04/10/20 03:14 78 18 100 Mechanical Ventilator 40 77 18 40 04/10/20 03:00 80 18 106/68 (81) 100 04/10/20 03:00 106/68 04/10/20 02:00 107/67 04/10/20 02:00 69 18 107/67 (80) 100 04/10/20 01:00 70 18 105/65 (78) 100 04/10/20 01:00 105/65 04/10/20 00:00 97.8 71 18 116/79 (91) 100 04/10/20 00:00 40 04/10/20 00:00 116/79 04/10/20 00:00 72 04/10/20 00:00 Mechanical Ventilator 04/09/20 23:16 73 18 100 Mechanical Ventilator 40 73 18 40 04/09/20 23:00 73 18 104/66 (79) 100 04/09/20 23:00 104/66 04/09/20 22:00 119/75 04/09/20 22:00 74 18 119/75 (90) 100 04/09/20 21:00 117/70 04/09/20 21:00 75 19 117/70 (86) 100 04/09/20 20:00 Mechanical Ventilator 04/09/20 20:00 97.9 77 18 109/67 (81) 100 04/09/20 20:00 109/67 04/09/20 20:00 40 04/09/20 20:00 77 04/09/20 19:12 80 18 100 Mechanical Ventilator 40 80 18 40 04/09/20 19:00 81 18 97/66 (76) 100 04/09/20 19:00 110/71 04/09/20 18:00 122/79 04/09/20 18:00 80 18 117/80 (92) 100 04/09/20 17:00 78 18 132/74 (93) 100 04/09/20 17:00 126/77 Intake and Output 04/09/20 04/10/20 19:00 07:00 Intake Total 1772.50 ml 1374.25 ml Output Total 1130 ml 1475 ml Balance 642.50 ml -100.75 ml IV Total 1772.50 ml 1374.25 ml Output Urine Total 1130 ml 1475 ml Laboratory Tests 04/10/20 09:00: White Blood Count 11.3H, Red Blood Count 2.92L, Hemoglobin 9.0L, Hematocrit 28.7L, Mean Corpuscular Volume 98, Mean Corpuscular Hemoglobin 30.7, Mean Corpuscular Hemoglobin Concent 31.3L, Red Cell Distribution Width 14.4, Platelet Count 148L, Mean Platelet Volume 10.4H, Neutrophils (%) (Auto) 83.4H, Lymphocytes (%) (Auto) 12.2L, Monocytes (%) (Auto) 3.0, Eosinophils (%) (Auto) 1.0, Basophils (%) (Auto) 0.5, Prothrombin Time 15.3H, Prothromb Time International Ratio 1.4H, Activated Partial Thromboplast Time 54H, Sodium Level 141, Potassium Level 4.0, Chloride Level 109H, Carbon Dioxide Level 22, Anion Gap 10, Blood Urea Nitrogen 30H, Creatinine 1.4H, Estimat Glomerular Filtration Rate 38.2, Glucose Level 102, Calcium Level 9.0 Height (Feet): 5 Height (Inches): 5.00 Weight (Pounds): 128 Objective General Appearance: WD/WN, unresponsive intubated Neck: non-tender Cardiovascular: normal rate, regular rhythm Respiratory/Chest: chest wall non-tender, lungs clear, normal breath sounds Abdomen: normal bowel sounds, non tender, soft, no organomegaly Edema: no edema noted Arm (L), no edema noted Arm (R), no edema noted Leg (L), no edema noted Leg (R), no edema noted Pedal (L), no edema noted Pedal (R), no edema noted Generalized Neurologic: Unresponsive to pain. Respiratory rate18 despite elevated CO2, on AC 18. no gag reflex noted. Pupils fixed, dilated and unresponsive to light. No ocular response to ice cold saline instilled in external auditory canals bilaterally. EEG with NO activity per Neurologist. no corneal reflex.no spont movements Isaak Ledesma MD Apr 10, 2020 16:59
--- NOTE | 2020-04-10 19:45 | NUR ---
HAND-OFF: Report given to Selina EARLY. Endorsed plan of care. VS remain stable while pt is maintained on Levophed drip.
--- NOTE | 2020-04-10 20:00 | NUR ---
NURSE NOTES: Received report from Darline EARLY. Pt is nonresponsive to stimuli. Pupils dilated bilaterally and fixed. Absence of gag reflex. Pt is orally intubated, ETT 7.5 at 23cm lipline with vent settings, AC18, VT 500, Peep 10, FIO2 40%, with bilateral diminished lung sounds. NSR/Sinus Mark on defensive secondary coach. Pt is currently maintained on Levophed drip at 4mcg/min to maintain SBP above 90. Levophed is infusing via left UA double lumen PICC line. Pt has also IV fluid, D5 0.45%NS infusing at 100ml/hour. Pt has left nare NGT, currently clamped, no feedings per MD order/NPO. Abdomen is round, distended, slightly hard to touch, with hypoactive bowel sounds. Lainez catheter is present, draining yellow urine. Skin alterations are noted, sacral/buttocks full thickness pressure ulcer and bilateral heels DTI, covered with optifoam dressings. Pt is on pressure release mattress. HOB at 30 degrees, bed locked, in lowest position, three side rails up, alarm on. Will continue with plan of care.
--- NOTE | 2020-04-10 20:34 | General Progress Note ---
Assessment/Plan Status: stable, progressing Assessment/Plan: Assessment - Resp failure - dysphagia / NGT / residuals - COPD - Clinical brain - Anemia - leukocytosis - hypernatremia, improved - sepsis - hypothyroid - poor prognosis Recommendations - pulmonary f/u - IVF - TF - abx - elevate HOB - follow labs and exam - abx - terminal extubation Subjective Allergies: Coded Allergies: PENICILLINS (Verified Allergy, Unknown, 03/11/20) Subjective Above noted seen in ICU on vent d/w RN off feeds Objective Last 24 Hour Vital Signs Date Time Temp Pulse Resp B/P (MAP) Pulse Ox O2 Delivery O2 Flow Rate FiO2 04/10/20 19:30 64 18 84/56 (65) 100 04/10/20 19:22 65 18 100 Mechanical Ventilator 40 64 18 40 04/10/20 19:00 91/62 04/10/20 19:00 97.3 66 18 94/62 (73) 99 04/10/20 18:00 120/80 04/10/20 18:00 61 18 120/80 (93) 100 04/10/20 17:00 62 18 122/79 (93) 100 04/10/20 17:00 117/77 04/10/20 16:26 133/84 04/10/20 16:00 40 04/10/20 16:00 63 18 133/84 (100) 100 04/10/20 16:00 115/80 04/10/20 16:00 Mechanical Ventilator 04/10/20 16:00 63 04/10/20 15:08 63 18 100 Mechanical Ventilator 40 63 18 40 04/10/20 15:00 130/70 04/10/20 15:00 63 18 131/82 (98) 100 04/10/20 14:00 120/70 04/10/20 14:00 97.3 63 18 140/85 (103) 100 04/10/20 13:00 128/82 04/10/20 13:00 63 18 128/82 (97) 100 04/10/20 12:00 64 04/10/20 12:00 40 04/10/20 12:00 125/83 04/10/20 12:00 Mechanical Ventilator 04/10/20 12:00 64 18 125/83 (97) 100 04/10/20 11:00 65 18 125/82 (96) 100 04/10/20 11:00 124/83 04/10/20 10:53 66 18 100 Mechanical Ventilator 40 66 18 40 04/10/20 10:00 67 18 106/66 (79) 100 04/10/20 10:00 105/66 04/10/20 09:00 67 18 80/55 (63) 100 04/10/20 09:00 80/55 04/10/20 08:00 67 04/10/20 08:00 40 04/10/20 08:00 69 18 95/62 (73) 100 04/10/20 08:00 Mechanical Ventilator 04/10/20 08:00 95/62 04/10/20 07:14 69 18 100 Mechanical Ventilator 40 69 18 40 04/10/20 07:00 102/66 04/10/20 07:00 69 18 102/66 (78) 100 04/10/20 06:00 70 18 97/70 (79) 100 04/10/20 06:00 97/70 04/10/20 05:00 101/63 04/10/20 05:00 71 18 101/63 (76) 100 04/10/20 04:00 72 04/10/20 04:00 40 04/10/20 04:00 Mechanical Ventilator 04/10/20 04:00 102/62 04/10/20 04:00 97.5 73 18 102/62 (75) 100 04/10/20 03:14 78 18 100 Mechanical Ventilator 40 77 18 40 04/10/20 03:00 80 18 106/68 (81) 100 04/10/20 03:00 106/68 04/10/20 02:00 107/67 04/10/20 02:00 69 18 107/67 (80) 100 04/10/20 01:00 70 18 105/65 (78) 100 04/10/20 01:00 105/65 04/10/20 00:00 97.8 71 18 116/79 (91) 100 04/10/20 00:00 40 04/10/20 00:00 116/79 04/10/20 00:00 72 04/10/20 00:00 Mechanical Ventilator 04/09/20 23:16 73 18 100 Mechanical Ventilator 40 73 18 40 04/09/20 23:00 73 18 104/66 (79) 100 04/09/20 23:00 104/66 04/09/20 22:00 119/75 04/09/20 22:00 74 18 119/75 (90) 100 04/09/20 21:00 117/70 04/09/20 21:00 75 19 117/70 (86) 100 Intake and Output 04/09/20 04/10/20 19:00 07:00 Intake Total 1772.50 ml 1374.25 ml Output Total 1130 ml 1475 ml Balance 642.50 ml -100.75 ml IV Total 1772.50 ml 1374.25 ml Output Urine Total 1130 ml 1475 ml Laboratory Tests 04/10/20 09:00: White Blood Count 11.3H, Red Blood Count 2.92L, Hemoglobin 9.0L, Hematocrit 28.7L, Mean Corpuscular Volume 98, Mean Corpuscular Hemoglobin 30.7, Mean Corpuscular Hemoglobin Concent 31.3L, Red Cell Distribution Width 14.4, Platelet Count 148L, Mean Platelet Volume 10.4H, Neutrophils (%) (Auto) 83.4H, Lymphocytes (%) (Auto) 12.2L, Monocytes (%) (Auto) 3.0, Eosinophils (%) (Auto) 1.0, Basophils (%) (Auto) 0.5, Prothrombin Time 15.3H, Prothromb Time International Ratio 1.4H, Activated Partial Thromboplast Time 54H, Sodium Level 141, Potassium Level 4.0, Chloride Level 109H, Carbon Dioxide Level 22, Anion Gap 10, Blood Urea Nitrogen 30H, Creatinine 1.4H, Estimat Glomerular Filtration Rate 38.2, Glucose Level 102, Calcium Level 9.0 Height (Feet): 5 Height (Inches): 5.00 Weight (Pounds): 128 Objective Thin WW NCAT (+) ETT, NGT supple coarse BS RR abd soft NT ND no edema Douglas Tucker MD Apr 10, 2020 20:34
--- NOTE | 2020-04-10 21:48 | NUR ---
RESPIRATORY NOTE: Received pt on Ac 18, 500VT, peep +10 40%. ETT 7.5 Secured at 23cm lip line with anchor fast. BS bilateral with insp/exp wheezes. Q4 Alb no adverse reaction to treatment. Pt is obtundent and in no distress. Will continue to monitor. Ambu Bag present, vent connected to red outlet. Will continue to monitor.
[2020-04-10] MEDS: Dyna-Hex 2% Top Sol 2oz TOPIC SCH (22:06)
[2020-04-11] VITALS (32 sets, daily range): BP systolic 87–164; BP diastolic 60–108
[2020-04-11] MEDS: Cefepime HCl 2 GM in D5W 55 ML IVPB SCH ×2 (00:39→12:40)
[2020-04-11] MEDS: D5 1/2NS 1,000 ML IV SCH ×2 (02:48→12:40)
[2020-04-11] MEDS: Albuterol 90mcg Inhaler 8gm INH SCH ×4 (03:09→15:20)
--- NOTE | 2020-04-11 07:27 | NUR ---
HAND-OFF: Report given to SHARATH Tobias patient in bed. Remains on ventilator. Endorse to AM nurse additional note to be written by Dr Ledesma. Remains stable at Hand-off.
--- NOTE | 2020-04-11 07:28 | NUR ---
NURSE NOTES: Received report from SHARATH Marks. Pt is nonresponsive to stimuli. Pupils dilated bilaterally and fixed. Absence of gag reflex. Pt is orally intubated, ETT 7.5, 23cm @ lipline with vent settings AC 18, VT 500, Peep 10, FIO2 40%. NSR/Sinus Mark on surveillance system monitor. Pt is currently maintained on Levophed drip at 6mcg/min to maintain SBP above 90. Levophed is infusing via left UA double lumen PICC line. Pt has also IV fluid, D5 1/2NS infusing at 100mL/hr. Pt has left nare NGT, currently clamped, NPO per MD order. Lainez catheter is present and patent, draining yellow urine. Pt is on a P200 mattress. HOB at 30 degrees, bed locked, in lowest position, three side rails up, alarm on. Will continue with plan of care.
[2020-04-11] MEDS: Pantoprazole Inj IVP SCH (09:09)
[2020-04-11] MEDS: Zinc Sulfate 220mg NG SCH (09:09)
[2020-04-11] MEDS: Midodrine 10mg tab NG SCH ×3 (09:09→17:16)
[2020-04-11] MEDS: Lactulose 20gm/30ml UDC NG SCH ×3 (09:09→17:16)
[2020-04-11] MEDS: Heparin 5000 units/ml inj SUBQ SCH (09:10)
--- NOTE | 2020-04-11 09:22 | General Progress Note ---
Assessment/Plan Problem List: (1) COPD (chronic obstructive pulmonary disease) ICD Codes: J44.9 - Chronic obstructive pulmonary disease, unspecified SNOMED: [id number] Qualifiers: Qualified Codes: J44.9 - Chronic obstructive pulmonary disease, unspecified (2) Pneumonia ICD Codes: J18.9 - Pneumonia, unspecified organism SNOMED: 612183524 Qualifiers: Qualified Codes: J18.9 - Pneumonia, unspecified organism (3) Fever ICD Codes: R50.9 - Fever, unspecified SNOMED: 095635217 Status: stable, progressing Assessment/Plan: clinically brain based on clinical exam and EEG(no activity). [facility] eval. terminal extubation pending Subjective ROS Limited/Unobtainable: Yes Constitutional: Reports: no symptoms HEENT: Reports: no symptoms Cardiovascular: Reports: no symptoms Respiratory: Reports: no symptoms Gastrointestinal/Abdominal: Reports: difficulty swallowing Genitourinary: Reports: no symptoms Neurologic/Psychiatric: Reports: pre-existing deficit Endocrine: Reports: no symptoms Hematologic/Lymphatic: Reports: no symptoms Allergies: Coded Allergies: PENICILLINS (Verified Allergy, Unknown, 03/11/20) All Systems: reviewed and negative except above Subjective unresponsive. no events. on the vent. full support. breathing 14. ac 14. no gag. pupils fixed and unresponsive. no response to painful stimuli. EEG with NO activity [facility] evaluating pt for organ donation. on levophed Objective Last 24 Hour Vital Signs Date Time Temp Pulse Resp B/P (MAP) Pulse Ox O2 Delivery O2 Flow Rate FiO2 04/11/20 08:00 Mechanical Ventilator 04/11/20 08:00 40 04/11/20 08:00 113/81 04/11/20 07:22 56 18 100 Mechanical Ventilator 40 56 18 40 04/11/20 07:00 114/77 04/11/20 07:00 04/11/20 07:00 56 18 114/77 (89) 100 04/11/20 06:00 105/71 04/11/20 06:00 57 18 105/71 (82) 100 04/11/20 05:00 57 18 127/84 (98) 100 04/11/20 05:00 127/84 04/11/20 04:00 40 04/11/20 04:00 87/62 04/11/20 04:00 97.5 66 18 87/62 (70) 100 04/11/20 04:00 63 04/11/20 04:00 Mechanical Ventilator 04/11/20 03:09 60 18 100 Mechanical Ventilator 40 60 18 40 04/11/20 03:00 164/108 04/11/20 03:00 62 18 164/108 (126) 100 04/11/20 02:00 115/75 04/11/20 02:00 56 18 115/75 (88) 100 04/11/20 01:00 57 18 132/79 (96) 100 04/11/20 01:00 132/79 04/11/20 00:00 97.0 56 18 122/81 (95) 100 04/11/20 00:00 Mechanical Ventilator 04/11/20 00:00 57 04/11/20 00:00 127/78 04/11/20 00:00 40 04/10/20 23:27 58 18 100 Mechanical Ventilator 40 57 18 40 04/10/20 23:00 128/80 04/10/20 23:00 57 18 128/80 (96) 100 04/10/20 22:00 59 18 120/76 (91) 100 04/10/20 22:00 120/76 04/10/20 21:00 100/72 04/10/20 21:00 60 18 100/72 (81) 100 04/10/20 20:00 97.0 62 18 109/71 (84) 100 04/10/20 20:00 62 04/10/20 20:00 109/71 04/10/20 20:00 40 04/10/20 20:00 Mechanical Ventilator 04/10/20 19:30 64 18 84/56 (65) 100 04/10/20 19:22 65 18 100 Mechanical Ventilator 40 64 18 40 04/10/20 19:00 91/62 04/10/20 19:00 97.3 66 18 94/62 (73) 99 04/10/20 18:00 120/80 04/10/20 18:00 61 18 120/80 (93) 100 04/10/20 17:00 62 18 122/79 (93) 100 04/10/20 17:00 117/77 04/10/20 16:26 133/84 04/10/20 16:00 40 04/10/20 16:00 63 18 133/84 (100) 100 04/10/20 16:00 115/80 04/10/20 16:00 Mechanical Ventilator 04/10/20 16:00 63 04/10/20 15:08 63 18 100 Mechanical Ventilator 40 63 18 40 04/10/20 15:00 130/70 04/10/20 15:00 63 18 131/82 (98) 100 04/10/20 14:00 120/70 04/10/20 14:00 97.3 63 18 140/85 (103) 100 04/10/20 13:00 128/82 04/10/20 13:00 63 18 128/82 (97) 100 04/10/20 12:00 64 04/10/20 12:00 40 04/10/20 12:00 125/83 04/10/20 12:00 Mechanical Ventilator 04/10/20 12:00 64 18 125/83 (97) 100 04/10/20 11:00 65 18 125/82 (96) 100 04/10/20 11:00 124/83 04/10/20 10:53 66 18 100 Mechanical Ventilator 40 66 18 40 04/10/20 10:00 67 18 106/66 (79) 100 04/10/20 10:00 105/66 Intake and Output 04/10/20 04/11/20 19:00 07:00 Intake Total 1208.75 ml 1244.17 ml Output Total 1270 ml 1030 ml Balance -61.25 ml 214.17 ml IV Total 1208.75 ml 1244.17 ml Output Urine Total 1270 ml 1030 ml Height (Feet): 5 Height (Inches): 5.00 Weight (Pounds): 127 Objective General Appearance: WD/WN, unresponsive intubated Neck: non-tender Cardiovascular: normal rate, regular rhythm Respiratory/Chest: chest wall non-tender, lungs clear, normal breath sounds Abdomen: normal bowel sounds, non tender, soft, no organomegaly Edema: no edema noted Arm (L), no edema noted Arm (R), no edema noted Leg (L), no edema noted Leg (R), no edema noted Pedal (L), no edema noted Pedal (R), no edema noted Generalized Neurologic: Unresponsive to pain. Respiratory rate18 despite elevated CO2, on AC 18. no gag reflex noted. Pupils fixed, dilated and unresponsive to light. No ocular response to ice cold saline instilled in external auditory canals bilaterally. EEG with NO activity per Neurologist. no corneal reflex.no spont movements Isaak Ledesma MD Apr 11, 2020 09:22
--- NOTE | 2020-04-11 09:25 | NUR ---
NURSE NOTES: 2 respresentative from [facility] are on the unit, assessing pt and looking over pt's chart.
--- NOTE | 2020-04-11 09:40 | Surgery Progress Note ---
Surgery Progress Note Subjective Symptoms: worse Objective Last 24 Hour Vital Signs Date Time Temp Pulse Resp B/P (MAP) Pulse Ox O2 Delivery O2 Flow Rate FiO2 04/11/20 09:00 55 18 116/78 (91) 100 04/11/20 09:00 116/78 04/11/20 08:30 55 18 105/73 (84) 100 04/11/20 08:00 Mechanical Ventilator 04/11/20 08:00 40 04/11/20 08:00 113/81 04/11/20 08:00 97.4 55 18 113/81 (92) 100 04/11/20 07:30 56 18 110/80 (90) 100 04/11/20 07:22 56 18 100 Mechanical Ventilator 40 56 18 40 04/11/20 07:00 114/77 04/11/20 07:00 04/11/20 07:00 56 18 114/77 (89) 100 04/11/20 06:00 105/71 04/11/20 06:00 57 18 105/71 (82) 100 04/11/20 05:00 57 18 127/84 (98) 100 04/11/20 05:00 127/84 04/11/20 04:00 40 04/11/20 04:00 87/62 04/11/20 04:00 97.5 66 18 87/62 (70) 100 04/11/20 04:00 63 04/11/20 04:00 Mechanical Ventilator 04/11/20 03:09 60 18 100 Mechanical Ventilator 40 60 18 40 04/11/20 03:00 164/108 04/11/20 03:00 62 18 164/108 (126) 100 04/11/20 02:00 115/75 04/11/20 02:00 56 18 115/75 (88) 100 04/11/20 01:00 57 18 132/79 (96) 100 04/11/20 01:00 132/79 04/11/20 00:00 97.0 56 18 122/81 (95) 100 04/11/20 00:00 Mechanical Ventilator 04/11/20 00:00 57 04/11/20 00:00 127/78 04/11/20 00:00 40 04/10/20 23:27 58 18 100 Mechanical Ventilator 40 57 18 40 04/10/20 23:00 128/80 04/10/20 23:00 57 18 128/80 (96) 100 04/10/20 22:00 59 18 120/76 (91) 100 04/10/20 22:00 120/76 04/10/20 21:00 100/72 04/10/20 21:00 60 18 100/72 (81) 100 04/10/20 20:00 97.0 62 18 109/71 (84) 100 04/10/20 20:00 62 04/10/20 20:00 109/71 04/10/20 20:00 40 04/10/20 20:00 Mechanical Ventilator 04/10/20 19:30 64 18 84/56 (65) 100 04/10/20 19:22 65 18 100 Mechanical Ventilator 40 64 18 40 04/10/20 19:00 91/62 04/10/20 19:00 97.3 66 18 94/62 (73) 99 04/10/20 18:00 120/80 04/10/20 18:00 61 18 120/80 (93) 100 04/10/20 17:00 62 18 122/79 (93) 100 04/10/20 17:00 117/77 04/10/20 16:26 133/84 04/10/20 16:00 40 04/10/20 16:00 63 18 133/84 (100) 100 04/10/20 16:00 115/80 04/10/20 16:00 Mechanical Ventilator 04/10/20 16:00 63 04/10/20 15:08 63 18 100 Mechanical Ventilator 40 63 18 40 04/10/20 15:00 130/70 04/10/20 15:00 63 18 131/82 (98) 100 04/10/20 14:00 120/70 04/10/20 14:00 97.3 63 18 140/85 (103) 100 04/10/20 13:00 128/82 04/10/20 13:00 63 18 128/82 (97) 100 04/10/20 12:00 64 04/10/20 12:00 40 04/10/20 12:00 125/83 04/10/20 12:00 Mechanical Ventilator 04/10/20 12:00 64 18 125/83 (97) 100 04/10/20 11:00 65 18 125/82 (96) 100 04/10/20 11:00 124/83 04/10/20 10:53 66 18 100 Mechanical Ventilator 40 66 18 40 04/10/20 10:00 67 18 106/66 (79) 100 04/10/20 10:00 105/66 I&O Intake and Output 04/10/20 04/11/20 19:00 07:00 Intake Total 1208.75 ml 1244.17 ml Output Total 1270 ml 1030 ml Balance -61.25 ml 214.17 ml IV Total 1208.75 ml 1244.17 ml Output Urine Total 1270 ml 1030 ml Dressing: other Wound: other Drains: other Cardiovascular: RSR Respiratory: decreased breath sounds Abdomen: soft, decreased bowel sounds Extremities: no cyanosis Plan Problems: (1) Malnutrition Assessment & Plan: not eating enough TF started adv as tolerated bowel regimen worsening prognosis guarded DDAILY ESTIMATED NEEDS: Needs based on Wound, pulmonary / 56kg 25-35 kcals/kg 5335-9928 total kcals 1.25-1.8 g protein/kg 70-100 g total protein 25-30 mL/kg 3336-8304 total fluid mLs NUTRITION DIAGNOSIS: * Swallowing difficulty R/T dysphagia as evidenced by [employer] w/ rec for NPO, now on NGT feeds. * Increased kcal/prot/micronutrients needs R/T wound healing as evidenced by pt admitted w/ multiple wounds including full thickness wound @ sacrum, TPI wound @ L Gluteal cheek, and non-Blanchable erythema @ BL heels. CURRENT TF:Jevity 1.2 @30ml/hr ENTERAL NUTRITION RECOMMENDATIONS: JEVITY 1.2 goal of 55ml/hr x24 hrs to provide 1320ml, 1584 kcal, 73g pro, 1065ml free H2O - rec to INCREASE current TF as tolerated to goal of 55ml/hr to better meet est needs. - flush per MD, HOB over 30 degrees ADDITIONAL RECOMMENDATIONS: * Per SNF: HT=66" TQ=[id number] (03/07/20) * Wound healing: continue MVI, Vit C, and ZnSO4 * VIA NGT-> add TONI BID for wound care TF recs as above * Monitor lytes, replete as needed THIS 60 Y.O.M. WAS ADMITTED WITH ACUTE ISSUES - FEVER, HYPOXIC WITH LOW 02 SATS ON NON-REBREATHER, RESP RATE 18 BPM INITIALLY PER MEDICAL RECORD. PER RN, THE PATIENT HAD A RAPID RESPOSE THIS MORNING (DESAT TO 90S AND RAPID RESP RATE). H/O COPD, CARDIAC DZ, HYPOTHYROIDISM, HTN, ALLERGIC RHINITIS, SCHIZOPHRENIA (ON OLANZAPINE AT SNF), BASELINE NONVERBAL. PER POLST FULL TX BUT NO INFORMATION REGARDING TUBE FEEDING PREFERENCES. AT SNF ON A REGULAR DIET TEXTURE AND THIN LIQUIDS WITH PROSTAT SF DRINK WITH MEALS. NOW ON A REGULAR TEXTURE DIET AND THIN LIQUIDS BUT DID NOT TAKE ANY PO. PER LAURIE EARLY, THE PT UNABLE TO TAKE LARGE PILLS BUT APPEARED TO TOLERATE CRUSHED MEDS WITH APPLESAUCE W/O OVERT ASPIRATION. PATIENT SEEN WITH RTFUNMI. PER RT RESP RATE 22 BPM AND NOT ABLE TO ongoing unintelligible confabulations. Patient did request a sandwich, however, not appropriate for regular texture at this time. VITALS ON 2 L NASAL CANNULA: HR: 73; RR: 20; SP02: 95% Patient's oral hygiene is improving, ongoing poor speech intelligibility which appears to be more due to poor articulation precision/oral motor coordination versus 2/2 dry mouth. CXR on 03/14/20: Findings: Interim considerable improvement of previously demonstrated left lower lobe infiltrate. There is a residual disease in the retrocardiac region as well as generalized reticular interstitial opacities throughout the left mid and lower lung. There is questionably a 3 cm spiculated opacity projected over the apex. Minimal right mid and lower lung reticular opacities are also demonstrated. There is some right midlung atelectasis versus thickening of the minor fissure. The heart size is normal. The pleural spaces are clear Impression: Considerable improvement the persistence of previously demonstrated left mid and lower lung infiltrates, since prior study of 03/11/2020. [employer] [facility] plans to continue to f/u and monitor Patients readiness for PO trials for diet texture upgrade. RN aware of recommendations, plan, and aspiration precautions sign posted above Patients HOB. RECOMMENDATIONS: 1. Continue Moist Puree with [place] Thick Liquids Diet via 1 to 1 careful handfeeding while implementing posted aspiration precautions - RD recommendations appreciated for diet texture/type 2. Patient requires oral hygiene BID + lip moisturizer. (2) Decubitus skin ulcer Assessment & Plan: Pt presented on admission with multiple pressure injuries. Full thickness Pressure injury Sacrococcygeal area. (L)4cm x (W)2.5cm. Base of wound is fatou with scattered slough ,which was easily removed with gentle friction. Wound is now fatou with 25% soft necrosis at distal base of wound. Small amt sanguineous exudate noted.No odor noted. Periwound erythematous and denuded. Two additional Pressure Injuries noted to R gluteal cheek.(Proximal) Base of wound is purple and indurated(L)3cm x (W)1.5cm. Surrounding erythematous and denuded skin (Distal) R gluteus(L)1.4cm x (W)0.6cm. Base of wound is purple, indurated with surrounding erythematous and denuded skin. DTPI L Gluteal cheek (L)1.5cm x (W)1.3cm. Base of wound is indurated, purple with surrounding non-blanching erythema. Additional scattered areas that are maroon in colour noted to L gluteal cheek. Lateral L Heel boggy with non-blanching erythema with delineated margins. (L) 4cm x (W)4.5cm. Lateral R Heel Boggy with non-Blanchable erythema with delineated margins(L) 2.5cm x (W)2.5cm. Tx.Plan: Cleanse Sacrococcygeal area with saline. Apply TheraHoney , Apply Moisture Barrier Paste to Sacrum, R and L Buttocks. Cover entire Area with Optifoam drsgs. Change every 3 days and prn. Apply Moisture Barrier Paste to R and L Buttocks . Cover with Optifoam drsgs. Changee very 3 days and prn. Apply Cavilon Skin Barrier to R and L Trochanteric areas. Cover with Optifoam drsg. Change every 7 days and prn. Apply Cavilon Skin Barrier to R and L Heels. Cover each heel with Optifoam drsg. Change every 7 days and prn. Reposition at least every 2hours or as tolerated. Off-load heels with Pillow. APM/ERIK Mattress. (3) Pneumonia Assessment & Plan: Lungs: There is mild left lower lobe infiltrate consistent with pneumonia. Pleural space: Unremarkable. No pneumothorax. Heart: The heart size is at the upper limits of normal. Mediastinum: Unremarkable. Bones/joints: Unremarkable. IMPRESSION: There is mild left lower lobe infiltrate consistent with pneumonia. worsening on bipap now will monitor closely intubated now 6/17 wean vent Continue weaning. Will hopefully be extubated potentially. Gases noted. (4) COPD (chronic obstructive pulmonary disease) Assessment & Plan: On vent support weaning Potential extubation soon not able to extubate as not safe with current status possible withdraw care as no function possible brain (5) Fever (6) Cardiopulmonary arrest Assessment & Plan: prognosis poor no reasonable functional status [facility] eval terminal extubation (7) Respiratory failure Eddie Perez Apr 11, 2020 09:40
--- NOTE | 2020-04-11 10:11 | NUR ---
NURSE NOTES: Pt consistently in Sinus Bradycardia. No distress noted.
--- NOTE | 2020-04-11 10:19 | NUR ---
*-* INSURANCE *-* UPDATED CLINICALS HAVE BEEN FAXED TO; [facility] F: [phone] REF #[id number]
--- NOTE | 2020-04-11 11:02 | Infectious Diseases Prog Note ---
Assessment/Plan Assessment/Plan antibiotics : cefepime A 1. klebsiella pneumonia COVID 19 test negative x 2 2. respiratory failure 3. COPD 4. leucocytosis improving 5. hypothyroidism 6. schizophrenia 7. shock P 1. continue iv cefepime 2. will follow up cultures 3. terminal extubation planned Subjective ROS Limited/Unobtainable: Yes Allergies: Coded Allergies: PENICILLINS (Verified Allergy, Unknown, 03/11/20) Objective Last 24 Hour Vital Signs Date Time Temp Pulse Resp B/P (MAP) Pulse Ox O2 Delivery O2 Flow Rate FiO2 04/11/20 10:00 56 18 112/73 (86) 100 04/11/20 09:30 56 18 114/82 (93) 100 04/11/20 09:00 55 18 116/78 (91) 100 04/11/20 09:00 116/78 04/11/20 08:30 55 18 105/73 (84) 100 04/11/20 08:00 Mechanical Ventilator 04/11/20 08:00 40 04/11/20 08:00 56 04/11/20 08:00 113/81 04/11/20 08:00 97.4 55 18 113/81 (92) 100 04/11/20 07:30 56 18 110/80 (90) 100 04/11/20 07:22 56 18 100 Mechanical Ventilator 40 56 18 40 04/11/20 07:00 114/77 04/11/20 07:00 04/11/20 07:00 56 18 114/77 (89) 100 04/11/20 06:00 105/71 04/11/20 06:00 57 18 105/71 (82) 100 04/11/20 05:00 57 18 127/84 (98) 100 04/11/20 05:00 127/84 04/11/20 04:00 40 04/11/20 04:00 87/62 04/11/20 04:00 97.5 66 18 87/62 (70) 100 04/11/20 04:00 63 04/11/20 04:00 Mechanical Ventilator 04/11/20 03:09 60 18 100 Mechanical Ventilator 40 60 18 40 04/11/20 03:00 164/108 04/11/20 03:00 62 18 164/108 (126) 100 04/11/20 02:00 115/75 04/11/20 02:00 56 18 115/75 (88) 100 04/11/20 01:00 57 18 132/79 (96) 100 04/11/20 01:00 132/79 04/11/20 00:00 97.0 56 18 122/81 (95) 100 04/11/20 00:00 Mechanical Ventilator 04/11/20 00:00 57 04/11/20 00:00 127/78 04/11/20 00:00 40 04/10/20 23:27 58 18 100 Mechanical Ventilator 40 57 18 40 04/10/20 23:00 128/80 04/10/20 23:00 57 18 128/80 (96) 100 04/10/20 22:00 59 18 120/76 (91) 100 04/10/20 22:00 120/76 04/10/20 21:00 100/72 04/10/20 21:00 60 18 100/72 (81) 100 04/10/20 20:00 97.0 62 18 109/71 (84) 100 04/10/20 20:00 62 04/10/20 20:00 109/71 04/10/20 20:00 40 04/10/20 20:00 Mechanical Ventilator 04/10/20 19:30 64 18 84/56 (65) 100 04/10/20 19:22 65 18 100 Mechanical Ventilator 40 64 18 40 04/10/20 19:00 91/62 04/10/20 19:00 97.3 66 18 94/62 (73) 99 04/10/20 18:00 120/80 04/10/20 18:00 61 18 120/80 (93) 100 04/10/20 17:00 62 18 122/79 (93) 100 04/10/20 17:00 117/77 04/10/20 16:26 133/84 04/10/20 16:00 40 04/10/20 16:00 63 18 133/84 (100) 100 04/10/20 16:00 115/80 04/10/20 16:00 Mechanical Ventilator 04/10/20 16:00 63 04/10/20 15:08 63 18 100 Mechanical Ventilator 40 63 18 40 04/10/20 15:00 130/70 04/10/20 15:00 63 18 131/82 (98) 100 04/10/20 14:00 120/70 04/10/20 14:00 97.3 63 18 140/85 (103) 100 04/10/20 13:00 128/82 04/10/20 13:00 63 18 128/82 (97) 100 04/10/20 12:00 64 04/10/20 12:00 40 04/10/20 12:00 125/83 04/10/20 12:00 Mechanical Ventilator 04/10/20 12:00 64 18 125/83 (97) 100 Height (Feet): 5 Height (Inches): 5.00 Weight (Pounds): 127 HEENT: other - intubated Respiratory/Chest: lungs clear Cardiovascular: normal rate, regular rhythm, no gallop/murmur Abdomen: soft, non tender Extremities: no edema, other - left arm PICC Current Medications Medications (Trade) Dose Ordered Sig/Ranjeet Route PRN Reason Start Time Stop Time Status Last Admin Dose Admin Albuterol Sulfate (Proventil MDI) 2 puff Q4HRT INH 03/18/20 15:00 06/13/20 02:59 04/11/20 08:19 Atropine Sulfate (Atropine) 1 mg Q1H PRN IVP HR <40BPM 03/18/20 13:30 04/17/20 13:29 03/31/20 14:58 Cefepime HCl 2 gm/ Dextrose 55 ml @ 110 mls/hr Q12H IVPB 04/02/20 12:00 04/13/20 11:59 04/11/20 00:39 Chlorhexidine Gluconate (Mary-Hex 2%) 1 applic DAILY@2000 TOPIC 03/21/20 20:00 06/19/20 19:59 04/10/20 22:06 Clonidine HCl (Catapres Tab) 0.1 mg Q4H PRN NG For High Blood Pressure 03/31/20 16:45 06/29/20 16:44 03/31/20 16:45 Dextrose/Sodium Chloride 1,000 ml @ 100 mls/hr Q10H IV 04/09/20 11:00 05/09/20 10:59 04/11/20 02:48 Heparin Sodium (Porcine) (Heparin 5000 units/ml) 5,000 units EVERY 12 HOURS SUBQ 03/18/20 21:00 04/25/20 20:59 04/11/20 09:10 Lactulose (Cephulac) 30 gm THREE TIMES A DAY NG 03/22/20 18:00 04/18/20 09:14 04/11/20 09:09 Levothyroxine Sodium (Synthroid) 150 mcg DAILY@0630 ORAL 03/31/20 06:30 04/30/20 06:29 04/11/20 05:52 Magnesium Hydroxide (Mom) 30 ml HSPRN PRN NG Constipation 03/22/20 15:30 04/17/20 13:59 04/03/20 17:15 Midodrine (Pro-Amatine) 10 mg THREE TIMES A DAY NG 03/24/20 13:00 06/21/20 08:59 04/11/20 09:09 Norepinephrine Bitartrate 16 mg/ Dextrose 500 ml @ 0 mls/hr Q24H IV 04/07/20 15:00 05/07/20 14:59 04/10/20 16:26 Pantoprazole (Protonix) 40 mg DAILY IVP 03/23/20 09:00 04/22/20 08:59 04/11/20 09:09 Phenylephrine HCl 50 mg/Dextrose 250 ml @ 0 mls/hr Q24H IV 04/01/20 12:00 05/01/20 11:59 04/03/20 23:36 Zinc Sulfate (Zinc Sulfate) 220 mg DAILY NG 03/23/20 09:00 06/10/20 08:59 04/11/20 09:09 Eh Bailey MD Apr 11, 2020 11:02
[2020-04-11] MEDS: Phenylephrine 50 MG in D5W 245 ML IV SCH (12:00)
--- NOTE | 2020-04-11 12:00 | NUR ---
NURSE NOTES: Pt remains on Levophed 6mcg/min. Pt turned and repositioned. Oral care done.
[2020-04-11] MEDS: Norepinephrine Bitartrate 16 MG in D5W 500ml 484 ML IV SCH (12:29)
--- NOTE | 2020-04-11 12:32 | NUR ---
CASE MANAGEMENT: REVIEW SI: INTUBATED . NONRESPONSIVE TO PAINFUL STIMULI . PUPILS DILATED AND FIXED BILATERALLY T 97.4 HR 55 RR 18 BP 113/81 SAT 100% MECH VENT FIO2 40 IS: D5 1/2 NS IVF @ 100ML/HR LEVOPHED IV Q24HR CEFEPIME IV Q12HR PHENYLEPHRINE IV Q24HR HEPARIN SUBQ Q12HR NPO TERMINAL EXTUBATION PLANNED ICU STATUS DCP: PATIENT IS FROM [facility]
--- NOTE | 2020-04-11 14:00 | NUR ---
NURSE NOTES: Pt was repositioned, bilateral extremities elevated on pillows. Pt remains on Levophed drip, @ 6mcg/min to maintain SBP above 90. Neurological status remains unchanged. No distress noted.
--- NOTE | 2020-04-11 15:40 | NUR ---
NURSE NOTES: Informed by [facility] representatives that authorization was received to begin organ donation work up.
--- NOTE | 2020-04-11 16:50 | NUR ---
NURSE NOTES: Left message for Dr Ledesma requesting discharge orders in order for pt to be readmitted under [facility]'s care. Awaiting call back.
[2020-04-11] MEDS ORDERED: D5 1/2NS 1000ml IV ONE (16:56)
[2020-04-11] MEDS ORDERED: Sterile Water Irrig 1000ml IRRIG ONE ×3 (16:56→17:52)
[2020-04-11] MEDS ORDERED: NS 275ml ONE ×3 (16:56→17:52)
[2020-04-11] MEDS ORDERED: Tubing IV Secondary IV ONE ×2 (17:52)
--- NOTE | 2020-04-11 18:00 | NUR ---
NURSE NOTES: Left Subclavian TLC and Lt Radial Arterial line placed by Dr Perez for close hemodynamic monitoring.
--- NOTE | 2020-04-11 18:09 | Critical Care Progress Note ---
Assessment/Plan Assessment/Plan IMPRESSION: 1. COPD 2. Hypercapnia and hypoxemia. 3. Pneumonia,senior living 4. Hypothyroidism. 5. History of allergies. 6. Severe protein-calorie malnutrition. 7. Mild leukocytosis. 8. acute respiratory failure/ failed extubation 9. pulmonary congestion 10. hypernatremia 11. brain care noted brain ; awaiting withdrawal of care respiratory care as is hemodynamics noted reviewed changes; monitor secretions- discussed care supportive care as is off load aspiration precautions position change and off load oxygen therapy as is terminal extubation pending medications/laboratory data/nursing notes/ICU care reviewed in detail note reviewed and edited care discussed with RN and RT ICU time spent >40 minutes Critical Care - Subjective Interval Events: seen earlier on vent unresponsive brain ROS Limited/Unobtainable: Yes Condition: critical EKG Rhythm: Sinus Rhythm I&O: Intake and Output 04/10/20 04/11/20 18:59 06:59 Intake Total 1216.25 ml 1236.67 ml Output Total 1285 ml 1070 ml Balance -68.75 ml 166.67 ml IV Total 1216.25 ml 1236.67 ml Output Urine Total 1285 ml 1070 ml Critical Care - Objective ET-Tube: 7.5 ET Position: 23 Last 24 Hour Vital Signs Date Time Temp Pulse Resp B/P (MAP) Pulse Ox O2 Delivery O2 Flow Rate FiO2 04/11/20 17:00 108/71 04/11/20 17:00 57 22 108/71 (83) 100 04/11/20 16:30 59 18 106/76 (86) 100 04/11/20 16:00 Mechanical Ventilator 04/11/20 16:00 96.1 59 18 91/67 (75) 100 04/11/20 16:00 91/67 04/11/20 16:00 40 04/11/20 15:30 58 18 96/67 (77) 100 04/11/20 15:21 58 18 100 Mechanical Ventilator 40 56 18 40 04/11/20 15:00 57 18 109/74 (86) 100 04/11/20 15:00 109/74 04/11/20 14:30 57 18 112/72 (85) 100 04/11/20 14:00 56 18 106/76 (86) 100 04/11/20 14:00 106/76 04/11/20 13:30 57 18 95/72 (80) 100 04/11/20 13:00 91/69 04/11/20 13:00 57 18 92/69 (77) 100 04/11/20 12:30 57 18 107/65 (79) 100 04/11/20 12:00 97.3 57 18 108/73 (85) 100 04/11/20 12:00 108/73 04/11/20 12:00 59 109/73 04/11/20 12:00 57 04/11/20 12:00 Mechanical Ventilator 04/11/20 12:00 40 04/11/20 11:30 56 18 117/86 (96) 100 04/11/20 11:27 57 18 100 Mechanical Ventilator 40 58 18 40 04/11/20 11:00 56 18 111/76 (88) 100 04/11/20 11:00 111/76 04/11/20 10:30 57 17 112/81 (91) 100 04/11/20 10:00 56 18 112/73 (86) 100 04/11/20 10:00 112/73 04/11/20 09:30 56 18 114/82 (93) 100 04/11/20 09:00 55 18 116/78 (91) 100 04/11/20 09:00 116/78 04/11/20 08:30 55 18 105/73 (84) 100 04/11/20 08:00 Mechanical Ventilator 04/11/20 08:00 40 04/11/20 08:00 56 04/11/20 08:00 113/81 04/11/20 08:00 97.4 55 18 113/81 (92) 100 04/11/20 07:30 56 18 110/80 (90) 100 04/11/20 07:22 56 18 100 Mechanical Ventilator 40 56 18 40 04/11/20 07:00 114/77 04/11/20 07:00 04/11/20 07:00 56 18 114/77 (89) 100 04/11/20 06:00 105/71 04/11/20 06:00 57 18 105/71 (82) 100 04/11/20 05:00 57 18 127/84 (98) 100 04/11/20 05:00 127/84 04/11/20 04:00 40 04/11/20 04:00 87/62 04/11/20 04:00 97.5 66 18 87/62 (70) 100 04/11/20 04:00 63 04/11/20 04:00 Mechanical Ventilator 04/11/20 03:09 60 18 100 Mechanical Ventilator 40 60 18 40 04/11/20 03:00 164/108 04/11/20 03:00 62 18 164/108 (126) 100 04/11/20 02:00 115/75 04/11/20 02:00 56 18 115/75 (88) 100 04/11/20 01:00 57 18 132/79 (96) 100 04/11/20 01:00 132/79 04/11/20 00:00 97.0 56 18 122/81 (95) 100 04/11/20 00:00 Mechanical Ventilator 04/11/20 00:00 57 04/11/20 00:00 127/78 04/11/20 00:00 40 04/10/20 23:27 58 18 100 Mechanical Ventilator 40 57 18 40 04/10/20 23:00 128/80 04/10/20 23:00 57 18 128/80 (96) 100 04/10/20 22:00 59 18 120/76 (91) 100 04/10/20 22:00 120/76 04/10/20 21:00 100/72 04/10/20 21:00 60 18 100/72 (81) 100 04/10/20 20:00 97.0 62 18 109/71 (84) 100 04/10/20 20:00 62 04/10/20 20:00 109/71 04/10/20 20:00 40 04/10/20 20:00 Mechanical Ventilator 04/10/20 19:30 64 18 84/56 (65) 100 04/10/20 19:22 65 18 100 Mechanical Ventilator 40 64 18 40 04/10/20 19:00 91/62 04/10/20 19:00 97.3 66 18 94/62 (73) 99 Objective: GENERAL: An ill-appearing female. NAD on Vent NECK: Supple. No adenopathy. LUNGS: Coarse breath sounds. Moderate air entry. ETT in place; no rhonchi or wheeze CARDIAC: S1, S2. Regular rate and rhythm without murmur. ABDOMEN: Soft, nontender, nondistended. feeding tube EXTREMITIES: No cyanosis, clubbing, or edema. obtunded on the vent reviewed and edited Javier Blake MD Apr 11, 2020 18:09
--- NOTE | 2020-04-11 19:39 | General Progress Note ---
Assessment/Plan Status: stable, progressing Assessment/Plan: Assessment - Resp failure - dysphagia / NGT / residuals - COPD - Clinical brain - Anemia - leukocytosis - hypernatremia, improved - sepsis - hypothyroid - poor prognosis Recommendations - pulmonary f/u - IVF - TF - abx - elevate HOB - follow labs and exam - abx Subjective Allergies: Coded Allergies: PENICILLINS (Verified Allergy, Unknown, 03/11/20) Subjective Above noted seen in ICU this am on vent d/w RN off feeds [facility] transfer pending Objective Last 24 Hour Vital Signs Date Time Temp Pulse Resp B/P (MAP) Pulse Ox O2 Delivery O2 Flow Rate FiO2 04/11/20 18:15 61 18 89/60 (70) 100 04/11/20 18:00 87/61 04/11/20 18:00 60 18 87/61 (70) 99 04/11/20 17:45 59 18 94/61 (72) 96 04/11/20 17:30 60 18 110/76 (87) 98 04/11/20 17:00 108/71 04/11/20 17:00 57 22 108/71 (83) 100 04/11/20 16:30 59 18 106/76 (86) 100 04/11/20 16:00 Mechanical Ventilator 04/11/20 16:00 96.1 59 18 91/67 (75) 100 04/11/20 16:00 91/67 04/11/20 16:00 40 04/11/20 15:30 58 18 96/67 (77) 100 04/11/20 15:21 58 18 100 Mechanical Ventilator 40 56 18 40 04/11/20 15:00 57 18 109/74 (86) 100 04/11/20 15:00 109/74 04/11/20 14:30 57 18 112/72 (85) 100 04/11/20 14:00 56 18 106/76 (86) 100 04/11/20 14:00 106/76 04/11/20 13:30 57 18 95/72 (80) 100 04/11/20 13:00 91/69 04/11/20 13:00 57 18 92/69 (77) 100 04/11/20 12:30 57 18 107/65 (79) 100 04/11/20 12:00 97.3 57 18 108/73 (85) 100 04/11/20 12:00 108/73 04/11/20 12:00 59 109/73 04/11/20 12:00 57 04/11/20 12:00 Mechanical Ventilator 04/11/20 12:00 40 04/11/20 11:30 56 18 117/86 (96) 100 04/11/20 11:27 57 18 100 Mechanical Ventilator 40 58 18 40 04/11/20 11:00 56 18 111/76 (88) 100 04/11/20 11:00 111/76 04/11/20 10:30 57 17 112/81 (91) 100 04/11/20 10:00 56 18 112/73 (86) 100 04/11/20 10:00 112/73 04/11/20 09:30 56 18 114/82 (93) 100 04/11/20 09:00 55 18 116/78 (91) 100 04/11/20 09:00 116/78 04/11/20 08:30 55 18 105/73 (84) 100 04/11/20 08:00 Mechanical Ventilator 04/11/20 08:00 40 04/11/20 08:00 56 04/11/20 08:00 113/81 04/11/20 08:00 97.4 55 18 113/81 (92) 100 04/11/20 07:30 56 18 110/80 (90) 100 04/11/20 07:22 56 18 100 Mechanical Ventilator 40 56 18 40 04/11/20 07:00 114/77 04/11/20 07:00 04/11/20 07:00 56 18 114/77 (89) 100 04/11/20 06:00 105/71 04/11/20 06:00 57 18 105/71 (82) 100 04/11/20 05:00 57 18 127/84 (98) 100 04/11/20 05:00 127/84 04/11/20 04:00 40 04/11/20 04:00 87/62 04/11/20 04:00 97.5 66 18 87/62 (70) 100 04/11/20 04:00 63 04/11/20 04:00 Mechanical Ventilator 04/11/20 03:09 60 18 100 Mechanical Ventilator 40 60 18 40 04/11/20 03:00 164/108 7/8/20 03:00 62 18 164/108 (126) 100 04/11/20 02:00 115/75 04/11/20 02:00 56 18 115/75 (88) 100 04/11/20 01:00 57 18 132/79 (96) 100 04/11/20 01:00 132/79 04/11/20 00:00 97.0 56 18 122/81 (95) 100 04/11/20 00:00 Mechanical Ventilator 04/11/20 00:00 57 04/11/20 00:00 127/78 04/11/20 00:00 40 04/10/20 23:27 58 18 100 Mechanical Ventilator 40 57 18 40 04/10/20 23:00 128/80 04/10/20 23:00 57 18 128/80 (96) 100 04/10/20 22:00 59 18 120/76 (91) 100 04/10/20 22:00 120/76 04/10/20 21:00 100/72 04/10/20 21:00 60 18 100/72 (81) 100 04/10/20 20:00 97.0 62 18 109/71 (84) 100 04/10/20 20:00 62 04/10/20 20:00 109/71 04/10/20 20:00 40 04/10/20 20:00 Mechanical Ventilator Intake and Output 04/10/20 04/11/20 18:59 06:59 Intake Total 1216.25 ml 1236.67 ml Output Total 1285 ml 1070 ml Balance -68.75 ml 166.67 ml IV Total 1216.25 ml 1236.67 ml Output Urine Total 1285 ml 1070 ml Height (Feet): 5 Height (Inches): 5.00 Weight (Pounds): 127 Objective Thin WW NCAT (+) ETT, NGT supple coarse BS RR abd soft NT ND no edema Douglas Tucker MD Apr 11, 2020 19:39
--- NOTE | 2020-04-12 11:57 | NUR ---
*-* INSURANCE *-* UPDATED CLINICALS HAVE BEEN FAXED TO;(NO D/C SUMMARY IN THE SYSTEM) [facility] F: [phone] REF #[id number]
--- NOTE | 2020-04-13 10:58 | NUR ---
*-* NO DISCHARGE SUMMARY IN THE SYSTEM UNABLE TO FAX TO [facility] *-*
--- NOTE | 2020-04-13 13:28 | Discharge Summary ---
Discharge Summary Discharge Summary _ SUMMARY DATE OF ADMISSION: 03/11/2020 DATE OF EXPIRATION: 04/10/2020 REASON FOR ADMISSION: 60 years old female with past medical history of COPD, hypothyroidism, schizophrenia, was brought from the longterm facility due to shortness of breath. Per nursing facility report, patient had cough, congestion and fever. Upon evaluation in emergency room she was afebrile , but was hypoxic. Patient required 100% nonrebreather mask. Laboratory work-up revealed leukocytosis. Chest x-ray revealed left lower lobe infiltrate. Patient was tested for COVID 19 in February 2020 , and was negative. Patient was swabbed for COVID-19 . Lactic acid 1.9. Sodium 151, stable renal parameters . AST 46 , ALT 83 . Albumin 2.4 Troponin negative. EKG revealed sinus rhythm , no acute ischemic changes. Chest X-ray revealed left lower lobe infiltrate consistent with pneumonia. Urinalysis revealed pyuria +3 leukocyte esterase, and few bacteria. Patient pancultured, started on empiric antibiotics and IV fluids. Patient subsequently admitted for further management . CONSULTANTS: pulmonary Dr. Blake ID specialist Dr. Bailey GI specialist Dr. Tucker surgery [facility] COURSE: Patient admitted and started on IV fluids and empiric antibiotics . Patient was kept in isolation. Patient started on the IV steroids . Pulmonary toilet provided. Supplemental oxygen provided and titrated to keep pulse oximetry above 92%. Blood cultures were negative. SARS COV 2 by PCR on 03/11 was not detected , repeated SARS COV 2 by PCR on 03/14 was also not detected. Venous duplex bilateral lower extremity revealed no evidence of acute DVT. Bedside swallow evaluation was done, and speech therapist recommended n.p.o. status and NG tube /nonoral feeding. Subsequently NG tube was inserted, and patient started on tube feeding with strict aspiration precautions. Patient remained hypoxic. Patient was followed-up with ABG. ABG on 03/20 while on the BiPAP , revealed severe hypoxia . Patient subsequently was orally intubated by emergency room physician. Ventilator support and pulmonary toilet provided. Ventilator settings titrated based on ABG results. Sputum culture initially revealed Delfina and then on 03/27 sputum culture revealed growth of Klebsiella. Blood cultures were negative. Urine culture revealed Delfina. Patient demonstrated persistent leukocytosis with highest 31.1. Antibiotic regimen was further optimized as per ID specialist recommendation. Leukocytosis trending down. Wound care for present on admission multiply pressure injury provided as per surgeon recommendation. Patient condition remained critical and guarding. On 03/31 patient was reintubated was extubated , only to be reintubated later by emergency room physician . Patient required pressors since 03/31. Patient initially was on Levophed and then Levophed and phenylephrine. Hemodynamic status was closely monitored. Pressors titrated to keep mean arterial blood pressure above 65 Patient undergone encephalogram on 04/02 which revealed lack of electrical cerebral activities/brain . Patient condition was discussed with family. CODE STATUS was changed to DNR/DNI on 04/05. Patient was evaluated by [facility] for organ donation and appeared to be suitable Patient was kept on Levophed and ventilator for organ harvesting . FINAL DIAGNOSES: Sepsis Shock Acute respiratory failure requiring intubation Status post cardiopulmonary arrest Klebsiella pneumonia Clinical brain / per EEG COPD Dysphagia Severe protein calorie malnutrition Hypothyroidism Schizophrenia Decubitus skin ulcer, present on admission I have been assigned to dictate discharge summary for this account. I was not involved in the patient's management. Vilma Yu NP Apr 13, 2020 13:28
--- NOTE | 2020-04-16 11:24 | NUR ---
*-* INSURANCE *-* DISCHARGE SUMMARY HAS BEEN FAXED TO: [facility] F: [phone] REF #[id number]
== END 2020-04-10 16:59 | disposition expired | DRG 720 ==
LOC: EDBD 08:20 → EMR 08:44 → 2E 08:55 → EDBEDREQ 16:41 → 2W 03-12 20:42 → 2E 03-14 23:13 → ICU 03-18 12:24
PROC: 5A1955Z Respiratory Ventilation, Greater than 96 Consecutive Hours (ICD-10-PCS; principal; 2020-03-20)
PROC: 0BH17EZ Insertion of Endotracheal Airway into Trachea, Via Natural or Artificial Opening (ICD-10-PCS; 2020-03-20)
PROC: 02HV33Z Insertion of Infusion Device into Superior Vena Cava, Percutaneous Approach (ICD-10-PCS; 2020-03-21)
PROC: B548ZZA Ultrasonography of Superior Vena Cava, Guidance (ICD-10-PCS; 2020-03-21)
PROC: 0BH17EZ Insertion of Endotracheal Airway into Trachea, Via Natural or Artificial Opening (ICD-10-PCS; 2020-03-31)
PROC: 5A1955Z Respiratory Ventilation, Greater than 96 Consecutive Hours (ICD-10-PCS; 2020-03-31)
DX: A41.9 Sepsis, unspecified organism (principal); E43 Unspecified severe protein-calorie malnutrition; L89.153 Pressure ulcer of sacral region, stage 3; L89.319 Pressure ulcer of right buttock, unspecified stage; J44.0 Chronic obstructive pulmonary disease with (acute) lower respiratory infection; Z68.1 Body mass index [BMI] 19.9 or less, adult; J96.01 Acute respiratory failure with hypoxia; J96.02 Acute respiratory failure with hypercapnia; J15.0 Pneumonia due to Klebsiella pneumoniae; E03.9 Hypothyroidism, unspecified; F20.9 Schizophrenia, unspecified; R57.9 Shock, unspecified; Z20.828 Contact with and (suspected) exposure to other viral communicable diseases; Z66 Do not resuscitate
CPT/HCPCS: 36415; 36569; 36600; 71045; 74018; 74230; 76937; 80048; 80053; 80202; 81003; 82803; 82962; 83605; 83735; 83880; 84443; 84484; 85007; 85025; 85610; 85651; 85730; 86140; 87040; 87070; 87081; 87086; 87181; 87205; 92610; 92950; 93005; 93970; 94002; 94003; 94640; 94660; 94664; 96361; 96365; 96368; 99291; J0171; J2370; J7030; J8499

== ENCOUNTER 2020-04-11 17:52 | Inpatient (IN) | payer OTHER ==
[~2020-04-11] VITALS: Ht 162.6 cm; Wt 54.0 kg
[~2020-04-11 17:52] MED LIST: ACETAMINOPHEN325 M1 ORAL; ALBUTEROL SULF8.5 G1 INH; AZELASTINE137 MCG/0. NS; LEVOTHYROXINE125 MCG ORAL; LORATADINE10 M2 PO; MULTIVITAMINS1 EAC8 ORAL; NEOSPORIN OINT30 GM TOPIC; OLANZAPINE20 MG ORAL; PRO-STAT LIQUID30 ML ORAL; TRIHEXYPHENIDYL5 M2 PO; VITAMIN C500 M1 ORAL; ZINC SULFATE220 M1 ORAL
[2020-04-11 18:00] VITALS: BP 86/51
[2020-04-11 19:00] VITALS: BP 99/71
--- NOTE | 2020-04-11 19:26 | Diagnostic Imaging Report ---
EXAM: XR Chest, 1 View CLINICAL HISTORY: PREOP TECHNIQUE: Frontal view of the chest. COMPARISON: No relevant prior studies available. FINDINGS: Lungs: See below. Pleural space: Opacity left lung base which may represent pleural effusion atelectasis. Pneumonia is not excluded. Heart: Heart is mildly enlarged. Mediastinum: Unremarkable. Bones/joints: Unremarkable. Tubes, lines and devices: Endotracheal tube with tip terminating 2 cm terminating above the matteo. Enteric tube tip in the gastric fundus. Left subclavian central line with tip in the innominate vein. IMPRESSION: 1. Endotracheal tube with tip terminating 2 cm terminating above the matteo. 2. Enteric tube tip in the gastric fundus. 3. Left subclavian central line with tip in the innominate vein. 4. Opacity left lung base which may represent pleural effusion atelectasis. Pneumonia is not excluded.
[2020-04-11 19:59] LABS: APPEARANCE,URINE VERY CLOUDY; BILIRUBIN, URINE NEGATIVE (NEGATIVE); COLOR,URINE PALE YELLOW; GLUCOSE, URINE (UA) NEGATIVE (NEGATIVE); KETONES,URINE NEGATIVE (NEGATIVE); LEUKOCYTE ESTERASE ,URINE 3+ (NEGATIVE); NITRITE,URINE NEGATIVE (NEGATIVE); PH,URINE 6 (4.5-8.0); PROTEIN,URINE 2+ (NEGATIVE); UROBILINOGEN,URINE NORMAL MG/DL (0.0-1.0)
[2020-04-11 20:00] VITALS: BP 97/60
[2020-04-11 20:02] LABS: BASOPHILS % (AUTO) 0.7 % (0.0-2.0); EOSINOPHILS % (AUTO) 2.2 % (0.0-3.0); HEMATOCRIT 28.2 % (37.0-47.0); HEMOGLOBIN 8.9 G/DL (12.0-16.0); LYMPHOCYTES % (AUTO) 17.5 % (20.0-45.0); MEAN CORPUSCULAR VOLUME 96 FL (80-99); MONOCYTES % (AUTO) 3.2 % (1.0-10.0); NEUTROPHILS % (AUTO) 76.4 % (45.0-75.0); PLATELET COUNT 166 K/UL (150-450); RED BLOOD COUNT 2.92 M/UL (4.20-5.40); RED CELL DISTRIBUTION WIDTH 15.2 % (11.6-14.8); WHITE BLOOD COUNT 10.3 K/UL (4.8-10.8)
[2020-04-11 20:14] LABS: ANION GAP 12 mmol/L (5-15); BLOOD UREA NITROGEN 33 mg/dL (7-18); CALCIUM 9.3 MG/DL (8.5-10.1); CARBON DIOXIDE 20 MMOL/L (21-32); CHLORIDE 110 MMOL/L (98-107); CREATININE 1.4 MG/DL (0.55-1.30); POTASSIUM 3.4 MMOL/L (3.5-5.1); SODIUM 142 MMOL/L (136-145)
[2020-04-11] MEDS ORDERED: D5 1/2NS 1,000 ML IV SCH (20:17)
[2020-04-11 20:19] LABS: ALANINE AMINOTRANSFERASE 36 U/L (12-78); ALBUMIN/GLOBULIN RATIO 0.2 (1.0-2.7); ALKALINE PHOSPHATASE 215 U/L (46-116); ASPARTATE AMINO TRANSFERASE 163 U/L (15-37); BILIRUBIN,TOTAL 0.3 MG/DL (0.2-1.0)
[2020-04-11 20:30] LABS: BILIRUBIN,DIRECT < 0.1 MG/DL (0.0-0.3); CKMB 21.7 NG/ML (0.0-3.6); CREATINE KINASE 80 U/L (26-308)
--- NOTE | 2020-04-11 20:32 | Diagnostic Imaging Report ---
EXAM: US Abdomen Complete CLINICAL HISTORY: PREOP TECHNIQUE: Real-time ultrasound of the abdomen with image documentation. COMPARISON: No relevant prior studies available. FINDINGS: Liver: Liver measured at 15.3 cm with normal echogenicity. No mass. No intrahepatic bile duct dilation. Gallbladder: Sludge within the gallbladder. No stones, wall thickening or pericholecystic fluid. Common bile duct: Common bile duct is within normal limits measuring up to 5 mm. No stones. No dilation. Pancreas: Unremarkable as visualized. Kidneys: Right kidney measures up to 11 cm. No stone, mass or hydronephrosis. Left kidney measured 11.1 cm. Spleen: Spleen measured to 6.9 cm. Small amount of fluid noted about the spleen. The patient. Aorta: Unremarkable. No aneurysm. IMPRESSION: Sludge within the gallbladder. No stones, wall thickening or pericholecystic fluid.
[2020-04-11] MEDS: Norepinephrine Bitartrate 16 MG in D5W 500ml 484 ML IV SCH (20:35)
[2020-04-11 21:00] VITALS: BP 99/55
[2020-04-11] MEDS ORDERED: Sodium Chloride 550 ML IV SCH (21:15)
[2020-04-11 21:28] LABS: INR 1.6 (0.9-1.1)
[2020-04-11] MEDS ORDERED: Solu-MEDROL 125mg Inj IVPB ONE (21:45)
[2020-04-11 22:00] VITALS: BP 102/67
[2020-04-11] MEDS: Vasopressin 100 UNITS in NS 95 ML IV SCH (22:03)
[2020-04-11 23:00] VITALS: BP 109/58
[2020-04-11] MEDS ORDERED: NS IVPB SCH (23:00)
[2020-04-11] MEDS ORDERED: METHYLPREDNISOLONE SOD SUCC IVPB SCH (23:00)
[2020-04-11] MEDS ORDERED: Thiamine HCl 500 MG in D5W 55 ML IVPB SCH (23:00)
[2020-04-11] MEDS: DOBUTamine 250mg/250ml Premix 250 ML IV SCH (23:07)
[2020-04-12] VITALS (23 sets, daily range): BP systolic 92–143; BP diastolic 53–81
[2020-04-12] MEDS ORDERED: Dextrose 10% 1,000 ML IV SCH
[2020-04-12 00:26] LABS: BILIRUBIN, URINE NEGATIVE (NEGATIVE); COLOR,URINE PALE YELLOW; GLUCOSE, URINE (UA) NEGATIVE (NEGATIVE); KETONES,URINE NEGATIVE (NEGATIVE); LEUKOCYTE ESTERASE ,URINE 3+ (NEGATIVE); NITRITE,URINE NEGATIVE (NEGATIVE); PH,URINE 5 (4.5-8.0); PROTEIN,URINE 2+ (NEGATIVE); UROBILINOGEN,URINE NORMAL MG/DL (0.0-1.0)
[2020-04-12 00:33] LABS: INR 1.6 (0.9-1.1)
[2020-04-12 00:36] LABS: HEMATOCRIT 24.9 % (37.0-47.0); HEMOGLOBIN 7.9 G/DL (12.0-16.0); MEAN CORPUSCULAR VOLUME 97 FL (80-99); PLATELET COUNT 154 K/UL (150-450); RED BLOOD COUNT 2.56 M/UL (4.20-5.40); RED CELL DISTRIBUTION WIDTH 14.9 % (11.6-14.8); WHITE BLOOD COUNT 10.1 K/UL (4.8-10.8)
[2020-04-12 00:46] LABS: ALANINE AMINOTRANSFERASE 34 U/L (12-78); ALBUMIN 1.7 G/DL (3.4-5.0); ALKALINE PHOSPHATASE 184 U/L (46-116); AMYLASE 25 U/L (25-115); ANION GAP 10 mmol/L (5-15); ASPARTATE AMINO TRANSFERASE 139 U/L (15-37); BILIRUBIN,DIRECT < 0.1 MG/DL (0.0-0.3); BILIRUBIN,TOTAL 0.2 MG/DL (0.2-1.0); BLOOD UREA NITROGEN 32 mg/dL (7-18); CALCIUM 9.2 MG/DL (8.5-10.1); CARBON DIOXIDE 22 MMOL/L (21-32); CHLORIDE 110 MMOL/L (98-107); CREATININE 1.5 MG/DL (0.55-1.30); LACTATE DEHYDROGENASE 743 U/L (81-234); POTASSIUM 3.5 MMOL/L (3.5-5.1); SODIUM 141 MMOL/L (136-145)
[2020-04-12 00:47] LABS: APPEARANCE,URINE SLIGHTLY CLOUDY
[2020-04-12] MEDS: Thiamine HCl 100 MG in D5W 55 ML IVPB SCH ×3 (05:24→20:47)
--- NOTE | 2020-04-12 05:43 | Diagnostic Imaging Report ---
EXAM: CT Abdomen and Pelvis Without Intravenous Contrast CLINICAL HISTORY: PREOP TECHNIQUE: Axial computed tomography images of the abdomen and pelvis without intravenous contrast. CTDI is 8 mGy and DLP is 528 mGy-cm. One or more of the following dose reduction techniques were used: automated exposure control, adjustment of the mA and/or kV according to patient size, use of iterative reconstruction technique. COMPARISON: No relevant prior studies available. FINDINGS: Lung bases: Unremarkable. No mass. No consolidation. ABDOMEN: Liver: Unremarkable. Gallbladder and bile ducts: Unremarkable. No calcified stones. No ductal dilation. Pancreas: Unremarkable. No ductal dilation. Spleen: Unremarkable. No splenomegaly. Adrenals: Unremarkable. No mass. Kidneys and ureters: Unremarkable. No obstructing stones. No hydronephrosis. Stomach and bowel: The stomach is distended with fluid and air. There is a moderate amount of stool in the colon. No mucosal thickening. PELVIS: Appendix: No findings to suggest acute appendicitis. Bladder: Lainez catheter is within the urinary bladder. No stones. Reproductive: Unremarkable as visualized. ABDOMEN and PELVIS: Intraperitoneal space: There is a small amount of free fluid in the left upper abdomen. No free air. Bones/joints: Old posttraumatic changes of the left hip with metallic hardware in position. There are degenerative changes in the spine. No acute fracture. No dislocation. Soft tissues: Unremarkable. Vasculature: Atherosclerotic calcification of the abdominal aorta and bilateral iliac arteries. No abdominal aortic aneurysm. Lymph nodes: Unremarkable. No enlarged lymph nodes. IMPRESSION: 1. Small amount of free fluid in the left upper abdomen. 2. No other acute findings. EXAM: CT Chest Without Intravenous Contrast CLINICAL HISTORY: PREOP TECHNIQUE: Axial computed tomography images of the chest without intravenous contrast. CTDI is 8 mGy and DLP is 528 mGy-cm. One or more of the following dose reduction techniques were used: automated exposure control, adjustment of the mA and/or kV according to patient size, use of iterative reconstruction technique. COMPARISON: No relevant prior studies available. FINDINGS: Lungs: Extensive left lower lobe consolidation and smaller right lower lobe consolidation. Focal subsegmental atelectasis in the left upper lobe of the lung. Subsegmental atelectasis in the right lower lobe. Pleural space: Moderate size left pleural effusion. No pneumothorax. Heart: Unremarkable. No cardiomegaly. No significant pericardial effusion. Bones/joints: Unremarkable. No acute fracture. No dislocation. Soft tissues: Unremarkable. Vasculature: There is coronary artery atherosclerosis. Central venous catheter tip is at the superior vena cava. No thoracic aortic aneurysm. Lymph nodes: Unremarkable. No enlarged lymph nodes. Tubes, lines and devices: Endotracheal tube is in position. Feeding tube is in position. IMPRESSION: 1. Extensive left lower lobe consolidation and smaller right lower lobe consolidation. 2. Moderate size left pleural effusion.
[2020-04-12] MEDS: SOLU MEDROL IVPB SCH ×3 (05:53→21:11)
[2020-04-12] MEDS: NS IVPB SCH ×3 (05:53→21:11)
[2020-04-12] MEDS ORDERED: Solu-MEDROL 40mg Inj IVPB SCH (06:00)
[2020-04-12 06:03] LABS: HEMATOCRIT 24.5 % (37.0-47.0); HEMOGLOBIN 7.7 G/DL (12.0-16.0); MEAN CORPUSCULAR VOLUME 97 FL (80-99); PLATELET COUNT 143 K/UL (150-450); RED BLOOD COUNT 2.51 M/UL (4.20-5.40); RED CELL DISTRIBUTION WIDTH 14.7 % (11.6-14.8); WHITE BLOOD COUNT 9.3 K/UL (4.8-10.8)
[2020-04-12 06:11] LABS: BILIRUBIN, URINE NEGATIVE (NEGATIVE); COLOR,URINE PALE YELLOW; GLUCOSE, URINE (UA) NEGATIVE (NEGATIVE); KETONES,URINE NEGATIVE (NEGATIVE); LEUKOCYTE ESTERASE ,URINE 3+ (NEGATIVE); NITRITE,URINE NEGATIVE (NEGATIVE); PH,URINE 5 (4.5-8.0); PROTEIN,URINE 1+ (NEGATIVE); UROBILINOGEN,URINE NORMAL MG/DL (0.0-1.0)
[2020-04-12 06:21] LABS: INR 1.6 (0.9-1.1)
[2020-04-12 06:24] LABS: APPEARANCE,URINE SLIGHTLY CLOUDY
[2020-04-12 06:32] LABS: ALANINE AMINOTRANSFERASE 33 U/L (12-78); ALBUMIN 2.1 G/DL (3.4-5.0); ALKALINE PHOSPHATASE 177 U/L (46-116); AMYLASE 26 U/L (25-115); ANION GAP 14 mmol/L (5-15); ASPARTATE AMINO TRANSFERASE 132 U/L (15-37); BILIRUBIN,DIRECT 0.1 MG/DL (0.0-0.3); BILIRUBIN,TOTAL 0.3 MG/DL (0.2-1.0); BLOOD UREA NITROGEN 33 mg/dL (7-18); CALCIUM 8.9 MG/DL (8.5-10.1); CARBON DIOXIDE 19 MMOL/L (21-32); CHLORIDE 109 MMOL/L (98-107); CREATININE 1.4 MG/DL (0.55-1.30); LACTATE DEHYDROGENASE 721 U/L (81-234); PHOSPHORUS 5.2 MG/DL (2.5-4.9); POTASSIUM 4.2 MMOL/L (3.5-5.1); SODIUM 142 MMOL/L (136-145)
[2020-04-12] MEDS ORDERED: LEVOTHYROXINE SODIUM IV SCH (08:00)
[2020-04-12] MEDS ORDERED: SODIUM CHLORIDE IV SCH (08:00)
[2020-04-12] MEDS ORDERED: Sodium Bicarbonate 150 ML in 1/2 NS 1000ml 1,000 ML IV SCH (08:00)
--- NOTE | 2020-04-12 10:33 | Diagnostic Imaging Report ---
Indication: Cough Technique: One view of the chest Comparison: 04/11/2020 Findings: Stable satisfactory position of endotracheal and orogastric tubes. Normal heart size. Tortuous ascending aorta. Left subclavian central venous catheter is again demonstrated. There is improved aeration of the left lung base. There may be some residual retrocardiac consolidation Impression: Improved left basilar infiltrate, since previous day's exam. Some residual retrocardiac consolidation Other stable findings as described
[2020-04-12 12:45] LABS: HEMATOCRIT 23.5 % (37.0-47.0); HEMOGLOBIN 7.3 G/DL (12.0-16.0); MEAN CORPUSCULAR VOLUME 97 FL (80-99); PLATELET COUNT 141 K/UL (150-450); RED BLOOD COUNT 2.43 M/UL (4.20-5.40); RED CELL DISTRIBUTION WIDTH 14.2 % (11.6-14.8)
[2020-04-12 12:57] LABS: INR 1.6 (0.9-1.1)
[2020-04-12] MEDS ORDERED: Cefepime HCl 2 GM in D5W 55 ML IVPB SCH (13:00)
[2020-04-12 13:13] LABS: APPEARANCE,URINE CLEAR; BILIRUBIN, URINE NEGATIVE (NEGATIVE); COLOR,URINE PALE YELLOW; GLUCOSE, URINE (UA) NEGATIVE (NEGATIVE); KETONES,URINE NEGATIVE (NEGATIVE); LEUKOCYTE ESTERASE ,URINE 1+ (NEGATIVE); NITRITE,URINE NEGATIVE (NEGATIVE); PH,URINE 5 (4.5-8.0); PROTEIN,URINE NEGATIVE (NEGATIVE); UROBILINOGEN,URINE NORMAL MG/DL (0.0-1.0)
[2020-04-12 13:15] LABS: ALANINE AMINOTRANSFERASE 35 U/L (12-78); ALBUMIN 2.1 G/DL (3.4-5.0); ALKALINE PHOSPHATASE 192 U/L (46-116); AMYLASE 22 U/L (25-115); ANION GAP 13 mmol/L (5-15); ASPARTATE AMINO TRANSFERASE 126 U/L (15-37); BILIRUBIN,DIRECT 0.1 MG/DL (0.0-0.3); BILIRUBIN,TOTAL 0.3 MG/DL (0.2-1.0); BLOOD UREA NITROGEN 36 mg/dL (7-18); CALCIUM 8.9 MG/DL (8.5-10.1); CARBON DIOXIDE 22 MMOL/L (21-32); CHLORIDE 107 MMOL/L (98-107); CREATININE 1.5 MG/DL (0.55-1.30); LACTATE DEHYDROGENASE 722 U/L (81-234); PHOSPHORUS 5.7 MG/DL (2.5-4.9); POTASSIUM 3.9 MMOL/L (3.5-5.1); SODIUM 142 MMOL/L (136-145)
--- NOTE | 2020-04-12 14:53 | Operative Note - PDOC ---
Operative Note Operative Note Date of Operation/Procedure: Apr 11, 2020 Pre-op Diagnosis: Organ procurement Procedure: Left subclavian central line insertion Post-op Diagnosis: same as pre-op Surgeon: Eddie Perez MD Anesthesia: other Specimen: none Complications: none Estimated Blood Loss: none Drains: none Implant(s) used?: No Indications for Procedure 60-year-old female [facility] organ procurement needs central venous catheter for medications. I have been asked by organ procurement services [facility] to place central venous catheter. Plan for organ procurement soon Description of Procedure Patient was made comfortable in the reverse Trendelenburg position in the intensive care unit. Supine position. Left chest wall was prepped draped and sent surgical fashion. Using finder needle the left subclavian vein was cannulated without complication good venous flow noted. Guidewire placed and finder needle removed. Dilator used after small skin incision was made around the guidewire. Triple-lumen central venous catheter was inserted without complication guidewire removed and discarded. All ports flushed and aspirated appropriately. Line sutured in place. Dressings applied. Eddie Perze Apr 12, 2020 14:53
--- NOTE | 2020-04-12 14:54 | Operative Note - PDOC ---
Operative Note Operative Note Pre-op Diagnosis: Organ procurement Procedure: Left radial arterial line insertion Post-op Diagnosis: same as pre-op Surgeon: Eddie Perez MD Anesthesia: other Specimen: none Complications: none Estimated Blood Loss: none Drains: none Implant(s) used?: No Indications for Procedure 60-year-old female plan for organ procurement requires arterial line monitoring. Has been asked by organ procurement team [facility] for line placement. Line placed in the intensive care unit. Description of Procedure The left wrist was prepped draped in the same surgical fashion. Anatomic landmarks identified. The left radial artery was cannulated with arrow finder needle on first stick without complication. Guidewire placed over needle and following this a arterial line monitoring catheter was inserted over the guidewire without complication. catheter was placed to arterial line monitoring and identified to be sufficient without complication. Line sutured in place dressings applied. Eddie Perez Apr 12, 2020 14:54
[2020-04-12] MEDS ORDERED: Insulin Human Regular 100units/ml 3ml IV PRN (15:00)
[2020-04-12] MEDS ORDERED: Insulin Reg 100 units Premix 100 ML IVPB SCH ×3 (15:00→18:13)
[2020-04-12] MEDS: Insulin Human Regular 100units/ml 3ml IV PRN ×2 (15:27→16:06)
--- NOTE | 2020-04-12 16:40 | Diagnostic Imaging Report ---
Indication: Shortness of breath Technique: One view of the chest Comparison: 7 hours earlier Findings: Stable satisfactory positions of endotracheal tube, nasogastric tube, left subclavian central venous catheter. The lungs and pleural spaces are clear with decreased retrocardiac consolidation. The heart size is normal. Impression: No definite acute abnormality. Improved retrocardiac consolidation, over 7 hours
[2020-04-12] MEDS: Insulin Rate Change 1 Each MISC PRN ×4 (17:02→20:06)
[2020-04-12 17:53] LABS: HEMATOCRIT 23.2 % (37.0-47.0); HEMOGLOBIN 7.4 G/DL (12.0-16.0); MEAN CORPUSCULAR VOLUME 95 FL (80-99); PLATELET COUNT 147 K/UL (150-450); RED BLOOD COUNT 2.45 M/UL (4.20-5.40); RED CELL DISTRIBUTION WIDTH 15.2 % (11.6-14.8); WHITE BLOOD COUNT 9.8 K/UL (4.8-10.8)
[2020-04-12 17:59] LABS: INR 1.8 (0.9-1.1)
[2020-04-12 18:01] LABS: ALANINE AMINOTRANSFERASE 32 U/L (12-78); ALBUMIN 2.1 G/DL (3.4-5.0); ALKALINE PHOSPHATASE 205 U/L (46-116); AMYLASE 21 U/L (25-115); ANION GAP 14 mmol/L (5-15); ASPARTATE AMINO TRANSFERASE 127 U/L (15-37); BILIRUBIN,DIRECT < 0.1 MG/DL (0.0-0.3); BILIRUBIN,TOTAL 0.3 MG/DL (0.2-1.0); BLOOD UREA NITROGEN 36 mg/dL (7-18); CALCIUM 8.5 MG/DL (8.5-10.1); CARBON DIOXIDE 21 MMOL/L (21-32); CHLORIDE 107 MMOL/L (98-107); CREATININE 1.7 MG/DL (0.55-1.30); LACTATE DEHYDROGENASE 757 U/L (81-234); PHOSPHORUS 5.4 MG/DL (2.5-4.9); POTASSIUM 3.3 MMOL/L (3.5-5.1); SODIUM 142 MMOL/L (136-145)
--- NOTE | 2020-04-12 18:07 | Diagnostic Imaging Report ---
EXAM: XR Chest, 1 View CLINICAL HISTORY: PREOP TECHNIQUE: Frontal view of the chest. COMPARISON: 04/11/2020 FINDINGS: Lungs: Slight interval improvement in the left basilar atelectasis/airspace opacity. Pleural space: No pleural effusion. No pneumothorax. Heart: Unremarkable. No cardiomegaly. Bones/joints: Unremarkable. Tubes, lines and devices: Unchanged position of the endotracheal tube, esophagogastric tube, and left upper extremity PICC line. IMPRESSION: 1. Slight interval improvement in the left basilar atelectasis/airspace opacity. 2. Appropriately positioned lines and tubes.
[2020-04-12 18:09] LABS: APPEARANCE,URINE SLIGHTLY CLOUDY; BILIRUBIN, URINE NEGATIVE (NEGATIVE); COLOR,URINE PALE YELLOW; GLUCOSE, URINE (UA) NEGATIVE (NEGATIVE); KETONES,URINE NEGATIVE (NEGATIVE); LEUKOCYTE ESTERASE ,URINE 1+ (NEGATIVE); NITRITE,URINE NEGATIVE (NEGATIVE); PH,URINE 5 (4.5-8.0); PROTEIN,URINE NEGATIVE (NEGATIVE); UROBILINOGEN,URINE NORMAL MG/DL (0.0-1.0)
[2020-04-12] MEDS: Norepinephrine Bitartrate 16 MG in D5W 500ml 484 ML IV SCH (20:17)
[2020-04-12] MEDS: Vasopressin 100 UNITS in NS 95 ML IV SCH (20:47)
[2020-04-12 20:54] LABS: HEMATOCRIT 23.9 % (37.0-47.0); HEMOGLOBIN 7.6 G/DL (12.0-16.0); MEAN CORPUSCULAR VOLUME 95 FL (80-99); PLATELET COUNT 148 K/UL (150-450); RED BLOOD COUNT 2.52 M/UL (4.20-5.40); RED CELL DISTRIBUTION WIDTH 15.3 % (11.6-14.8); WHITE BLOOD COUNT 10.1 K/UL (4.8-10.8)
[2020-04-12 20:59] LABS: ANION GAP 13 mmol/L (5-15); BLOOD UREA NITROGEN 37 mg/dL (7-18); CALCIUM 8.7 MG/DL (8.5-10.1); CARBON DIOXIDE 23 MMOL/L (21-32); CHLORIDE 107 MMOL/L (98-107); CREATININE 1.6 MG/DL (0.55-1.30); POTASSIUM 3.8 MMOL/L (3.5-5.1); SODIUM 143 MMOL/L (136-145)
[2020-04-12 21:02] LABS: ALANINE AMINOTRANSFERASE 33 U/L (12-78); ALBUMIN 2.1 G/DL (3.4-5.0); ALBUMIN/GLOBULIN RATIO 0.5 (1.0-2.7); ALKALINE PHOSPHATASE 208 U/L (46-116); AMYLASE 22 U/L (25-115); ASPARTATE AMINO TRANSFERASE 129 U/L (15-37); BILIRUBIN,DIRECT < 0.1 MG/DL (0.0-0.3); BILIRUBIN,TOTAL 0.2 MG/DL (0.2-1.0); GAMMA GLUTAMYL TRANSPEPTIDASE 15 U/L (5-85); LACTATE DEHYDROGENASE 780 U/L (81-234); PHOSPHORUS 5.4 MG/DL (2.5-4.9)
[2020-04-12] MEDS: DOBUTamine 250mg/250ml Premix 250 ML IV SCH (21:05)
--- NOTE | 2020-04-12 21:13 | Anethesia Preoperative Eval ---
Anesthesia Pre-op PMH/ROS General Date of Evaluation: Apr 12, 2020 Time of Evaluation: 20:46 Anesthesiologist: Alex ASA Score: ASA 5 - Emergency Mallampati Score Class I : Soft palate, uvula, fauces, pillars visible Class II: Soft palate, uvula, fauces visible Class III: Soft palate, base of uvula visible Class IV: Only hard plate visible Mallampati Classification: Class III Surgeon: Unknown Diagnosis: Brain Surgical Procedure: Organ [place] Anesthesia History: none Family History: no anesthesia problems Allergies: Coded Allergies: PENICILLINS (Verified Allergy, Unknown, 03/11/20) Medications: see eMAR Patient NPO?: Yes Past Medical History Cardiovascular: Reports: HTN Pulmonary: Reports: COPD Neurologic/Psychiatric: Reports: other - Schizophrenia, Brain Endocrine: Reports: hypothyroidism Hematology/Immune: Reports: anemia Anesthesia Pre-op Phys. Exam Physician Exam Last Vital Signs Date Time Temp Pulse Resp B/P (MAP) Pulse Ox O2 Delivery O2 Flow Rate FiO2 04/12/20 21:05 119/69 04/12/20 21:00 96.9 71 16 100 Mechanical Ventilator 60 Constitutional: NAD Neurologic: CN 2-12 intact Cardiovascular: RRR Respiratory: CTA Gastrointestinal: S/NT/ND Airway Exam Mallampati Score: Class III MO: limited ROM: limited Teeth: missing Anesthesia Pre-op A/P Labs Hematology Test 04/12/20 00:00 04/12/20 05:00 04/12/20 12:00 04/12/20 17:30 White Blood Count 10.1 K/UL (4.8-10.8) 9.3 K/UL (4.8-10.8) 9.0 K/UL (4.8-10.8) 9.8 K/UL (4.8-10.8) Red Blood Count 2.56 M/UL (4.20-5.40) L 2.51 M/UL (4.20-5.40) L 2.43 M/UL (4.20-5.40) L 2.45 M/UL (4.20-5.40) L Hemoglobin 7.9 G/DL (12.0-16.0) L 7.7 G/DL (12.0-16.0) L 7.3 G/DL (12.0-16.0) L 7.4 G/DL (12.0-16.0) L Hematocrit 24.9 % (37.0-47.0) L 24.5 % (37.0-47.0) L 23.5 % (37.0-47.0) L 23.2 % (37.0-47.0) L Mean Corpuscular Volume 97 FL (80-99) 97 FL (80-99) 97 FL (80-99) 95 FL ( 80-99) Mean Corpuscular Hemoglobin 30.9 PG (27.0-31.0) 30.5 PG (27.0-31.0) 30.2 PG (27.0-31.0) 30.2 PG (27.0-31.0) Mean Corpuscular Hemoglobin Concent 31.7 G/DL (32.0-36.0) L 31.3 G/DL (32.0-36.0) L 31.3 G/DL (32.0-36.0) L 31.9 G/DL (32.0-36.0) L Red Cell Distribution Width 14.9 % (11.6-14.8) H 14.7 % (11.6-14.8) 14.2 % (11.6-14.8) 15.2 % (11.6-14.8) H Platelet Count 154 K/UL (150-450) 143 K/UL (150-450) L 141 K/UL (150-450) L 147 K/UL (150-450) L Mean Platelet Volume 13.3 FL (6.5-10.1) H 13.5 FL (6.5-10.1) H 14.2 FL (6.5-10.1) H 14.8 FL (6.5-10.1) H Neutrophils (%) (Auto) % (45.0-75.0) % (45.0-75.0) % (45.0-75.0) % (45.0-75.0) Lymphocytes (%) (Auto) % (20.0-45.0) % (20.0-45.0) % (20.0-45.0) % (20.0-45.0) Monocytes (%) (Auto) % (1.0-10.0) % (1.0-10.0) % (1.0-10.0) % (1.0- 10.0) Eosinophils (%) (Auto) % (0.0-3.0) % (0.0-3.0) % (0.0-3.0) % (0.0-3.0 ) Basophils (%) (Auto) % (0.0-2.0) % (0.0-2.0) % (0.0-2.0) % (0.0-2.0) Differential Total Cells Counted 100 100 100 100 Neutrophils % (Manual) 68 % (45-75) 93 % (45-75) H 94 % (45-75) H 93 % (45- 75) H Lymphocytes % (Manual) 17 % (20-45) L 5 % (20-45) L 5 % (20-45) L 6 % (20-45 ) L Monocytes % (Manual) 2 % (1-10) 2 % (1-10) 1 % (1-10) 1 % (1-10) Eosinophils % (Manual) 3 % (0-3) 0 % (0-3) 0 % (0-3) 0 % (0-3) Basophils % (Manual) 0 % (0-2) 0 % (0-2) 0 % (0-2) 0 % (0-2) Band Neutrophils 10 % (0-8) H 0 % (0-8) 0 % (0-8) 0 % (0-8) Platelet Estimate Adequate Decreased L Adequate Decreased L Platelet Morphology Normal Normal Normal Normal Hypochromasia 3+ 3+ 3+ Anisocytosis 1+ 1+ 1+ Test 04/12/20 20:30 White Blood Count Pending Red Blood Count Pending Hemoglobin Pending Hematocrit Pending Mean Corpuscular Volume Pending Mean Corpuscular Hemoglobin Pending Mean Corpuscular Hemoglobin Concent Pending Red Cell Distribution Width Pending Platelet Count Pending Mean Platelet Volume Pending Neutrophils (%) (Auto) Pending Lymphocytes (%) (Auto) Pending Monocytes (%) (Auto) Pending Eosinophils (%) (Auto) Pending Basophils (%) (Auto) Pending Coagulation Test 04/12/20 00:00 04/12/20 05:00 04/12/20 12:00 04/12/20 17:30 Prothrombin Time 16.7 SEC (9.30-11.50) H 16.6 SEC (9.30-11.50) H 17.3 SEC (9.30-11.50) H 19.4 SEC (9.30-11.50) H Prothromb Time International Ratio 1.6 (0.9-1.1) H 1.6 (0.9-1.1) H 1.6 (0.9-1.1) H 1.8 (0.9-1.1) H Activated Partial Thromboplast Time 47 SEC (23-33) H 45 SEC (23-33) H 46 SEC (23-33) H 47 SEC (23-33) H Test 04/12/20 20:30 Prothrombin Time Pending Prothromb Time International Ratio Pending Activated Partial Thromboplast Time Pending Chemistry Test 04/11/20 23:55 04/12/20 00:00 04/12/20 02:05 04/12/20 03:50 POC Whole Blood Glucose 62 MG/DL (74-106) L 81 MG/DL (74-106) 129 MG/DL (74-106) H Sodium Level 141 MMOL/L (136-145) Potassium Level 3.5 MMOL/L (3.5-5.1) Chloride Level 110 MMOL/L (98-107) H Carbon Dioxide Level 22 MMOL/L (21-32) Anion Gap 10 mmol/L (5-15) Blood Urea Nitrogen 32 mg/dL (7-18) H Creatinine 1.5 MG/DL (0.55-1.30) H Estimat Glomerular Filtration Rate 35.3 mL/min (>60) Glucose Level 68 MG/DL (74-106) L Osmolality 299 mOsm/kg (297-317) Lactic Acid Level 0.80 mmol/L (0.4-2.0) Calcium Level 9.2 MG/DL (8.5-10.1) Phosphorus Level 5.0 MG/DL (2.5-4.9) H Magnesium Level 1.6 MG/DL (1.8-2.4) L Total Bilirubin 0.2 MG/DL (0.2-1.0) Direct Bilirubin < 0.1 MG/DL (0.0-0.3) Aspartate Amino Transf (AST/SGOT) 139 U/L (15-37) H Alanine Aminotransferase (ALT/SGPT) 34 U/L (12-78) Alkaline Phosphatase 184 U/L (46-116) H Lactate Dehydrogenase 743 U/L (81-234) H Total Protein 5.8 G/DL (6.4-8.2) L Albumin 1.7 G/DL (3.4-5.0) L Amylase Level 25 U/L (25-115) Lipase 76 U/L (73-393) Test 04/12/20 05:00 04/12/20 05:46 04/12/20 08:00 04/12/20 12:00 Sodium Level 142 MMOL/L (136-145) 142 MMOL/L (136-145) Potassium Level 4.2 MMOL/L (3.5-5.1) 3.9 MMOL/L (3.5-5.1) Chloride Level 109 MMOL/L (98-107) H 107 MMOL/L (98-107) Carbon Dioxide Level 19 MMOL/L (21-32) L 22 MMOL/L (21-32) Anion Gap 14 mmol/L (5-15) 13 mmol/L (5-15) Blood Urea Nitrogen 33 mg/dL (7-18) H 36 mg/dL (7-18) H Creatinine 1.4 MG/DL (0.55-1.30) H 1.5 MG/DL (0.55-1.30) H Estimat Glomerular Filtration Rate 38.2 mL/min (>60) 35.3 mL/min (>60) Glucose Level 131 MG/DL (74-106) H 186 MG/DL (74-106) H Osmolality 299 mOsm/kg (297-317) 304 mOsm/kg (297-317) Lactic Acid Level 0.80 mmol/L (0.4-2.0) 0.80 mmol/L (0.4-2.0) Calcium Level 8.9 MG/DL (8.5-10.1) 8.9 MG/DL (8.5-10.1) Phosphorus Level 5.2 MG/DL (2.5-4.9) H 5.7 MG/DL (2.5-4.9) H Magnesium Level 2.2 MG/DL (1.8-2.4) 2.1 MG/DL (1.8-2.4) Total Bilirubin 0.3 MG/DL (0.2-1.0) 0.3 MG/DL (0.2-1.0) Direct Bilirubin 0.1 MG/DL (0.0-0.3) 0.1 MG/DL (0.0-0.3) Aspartate Amino Transf (AST/SGOT) 132 U/L (15-37) H 126 U/L (15-37) H Alanine Aminotransferase (ALT/SGPT) 33 U/L (12-78) 35 U/L (12-78) Alkaline Phosphatase 177 U/L (46-116) H 192 U/L (46-116) H Lactate Dehydrogenase 721 U/L (81-234) H 722 U/L (81-234) H Total Protein 6.1 G/DL (6.4-8.2) L 6.2 G/DL (6.4-8.2) L Albumin 2.1 G/DL (3.4-5.0) L 2.1 G/DL (3.4-5.0) L Amylase Level 26 U/L (25-115) 22 U/L (25-115) L Lipase 55 U/L (73-393) L 42 U/L (73-393) L POC Whole Blood Glucose 136 MG/DL (74-106) H 148 MG/DL (74-106) H Test 04/12/20 14:13 04/12/20 15:11 04/12/20 16:04 04/12/20 17:00 POC Whole Blood Glucose Pending Pending Pending 188 MG/DL (74-106) H Test 04/12/20 17:30 04/12/20 20:30 Sodium Level 142 MMOL/L (136-145) 143 MMOL/L (136-145) Potassium Level 3.3 MMOL/L (3.5-5.1) L 3.8 MMOL/L (3.5-5.1) Chloride Level 107 MMOL/L (98-107) 107 MMOL/L (98-107) Carbon Dioxide Level 21 MMOL/L (21-32) 23 MMOL/L (21-32) Anion Gap 14 mmol/L (5-15) 13 mmol/L (5-15) Blood Urea Nitrogen 36 mg/dL (7-18) H 37 mg/dL (7-18) H Creatinine 1.7 MG/DL (0.55-1.30) H 1.6 MG/DL (0.55-1.30) H Estimat Glomerular Filtration Rate 30.6 mL/min (>60) 32.8 mL/min (>60) Glucose Level 182 MG/DL (74-106) H 107 MG/DL (74-106) H Osmolality 319 mOsm/kg (297-317) H Lactic Acid Level 2.50 mmol/L (0.4-2.0) H 1.70 mmol/L (0.4-2.0) Calcium Level 8.5 MG/DL (8.5-10.1) 8.7 MG/DL (8.5-10.1) Phosphorus Level 5.4 MG/DL (2.5-4.9) H 5.4 MG/DL (2.5-4.9) H Magnesium Level 2.0 MG/DL (1.8-2.4) 2.1 MG/DL (1.8-2.4) Total Bilirubin 0.3 MG/DL (0.2-1.0) 0.2 MG/DL (0.2-1.0) Direct Bilirubin < 0.1 MG/DL (0.0-0.3) < 0.1 MG/DL (0.0-0.3) Aspartate Amino Transf (AST/SGOT) 127 U/L (15-37) H 129 U/L (15-37) H Alanine Aminotransferase (ALT/SGPT) 32 U/L (12-78) 33 U/L (12-78) Alkaline Phosphatase 205 U/L (46-116) H 208 U/L (46-116) H Lactate Dehydrogenase 757 U/L (81-234) H 780 U/L (81-234) H Total Protein 6.1 G/DL (6.4-8.2) L 6.3 G/DL (6.4-8.2) L Albumin 2.1 G/DL (3.4-5.0) L 2.1 G/DL (3.4-5.0) L Amylase Level 21 U/L (25-115) L 22 U/L (25-115) L Lipase 48 U/L (73-393) L 47 U/L (73-393) L Gamma Glutamyl Transpeptidase 15 U/L (5-85) Globulin 4.2 g/dL Albumin/Globulin Ratio 0.5 (1.0-2.7) L Risk Assessment & Plan Assessment: ASA 5 Plan: GA till end Status Change Before Surgery: No Lars Johnson MD Apr 12, 2020 21:13
[2020-04-12 21:14] LABS: BILIRUBIN, URINE NEGATIVE (NEGATIVE); COLOR,URINE PALE YELLOW; GLUCOSE, URINE (UA) NEGATIVE (NEGATIVE); KETONES,URINE NEGATIVE (NEGATIVE); LEUKOCYTE ESTERASE ,URINE NEGATIVE (NEGATIVE); NITRITE,URINE NEGATIVE (NEGATIVE); PH,URINE 5 (4.5-8.0); PROTEIN,URINE NEGATIVE (NEGATIVE); UROBILINOGEN,URINE NORMAL MG/DL (0.0-1.0)
[2020-04-12] MEDS ORDERED: Heparin 5000 units/ml inj ONE (21:25)
[2020-04-12 21:28] LABS: APPEARANCE,URINE SLIGHTLY CLOUDY
[2020-04-12 21:37] LABS: INR 1.9 (0.9-1.1)
[2020-04-12] MEDS ORDERED: MANNITOL 25% ONE ×2 (21:39→21:44)
[2020-04-12] MEDS ORDERED: Mannitol 20% IV 500 ML IV ONE (22:30)
[2020-04-12] MEDS ORDERED: NS Irrig 1000ml ONE (23:21)
[2020-04-13] MEDS ORDERED: LEVOTHYROXINE SODIUM IV ONE (06:00)
[2020-04-13] MEDS ORDERED: NS IV ONE (06:00)
[2020-04-13] MEDS ORDERED: SODIUM CHLORIDE IV SCH (17:00)
[2020-04-13] MEDS ORDERED: LEVOTHYROXINE SODIUM IV SCH (17:00)
== END 2020-04-12 23:22 | disposition expired | DRG 951 ==
LOC: ICU 17:52
DX: Z52.89 Donor of other specified organs or tissues (principal)
CPT/HCPCS: 36415; 36600; 71045; 71250; 74176; 76700; 80048; 80053; 80076; 80202; 81001; 81003; 82150; 82248; 82550; 82553; 82803; 82962; 82977; 83605; 83615; 83690; 83735; 83930; 84100; 84484; 85007; 85025; 85610; 85730; 86850; 86900; 86901; 87040; 87070; 87086; 87181; 87205; 93005; 94003; 94150